=== PATIENT | male | born 1995 | race Caucasian/White ===

== ENCOUNTER 2020-09-13 21:39 | Inpatient (IN) | payer OTHER ==
[2020-09-13] MEDS ORDERED: NALOXONE 0.4 MG/ML 1 ML VIAL IV PRN (22:11)
[2020-09-13] MEDS ORDERED: ACETAMINOPHEN TAB 325 MG TAB PO PRN (22:11)
[2020-09-13 22:18] LABS: Basophils % (A) 0 %; Eosinophils # (A) 0.3 k/uL (0-0.7); Eosinophils % (A) 4 %; HCT 22.1 % (39.0-53.0); HGB 7.7 gm/dL (13.0-17.5); Lymphocytes # (A) 1.4 k/uL (1.0-4.8); Lymphocytes % (A) 19 %; MCH 29.1 pg (25.0-35.0); MCHC 34.7 g/dL (31.0-37.0); MCV 83.8 fL (80.0-100.0); Mean Platelet Volume 10.2; Monocytes # (A) 0.3 k/uL (0-1.0); Monocytes % (A) 4 %; Neutrophils % (A) 71 %; Platelet Count 142 k/uL (150-450); RBC 2.64 m/uL (4.30-5.90); RDW 13.7 % (11.5-15.5); WBC 7.1 k/uL (3.8-10.6)
--- NOTE | 2020-09-13 22:20 | ED ---
General Adult HPI - General Chief complaint: Recheck/Abnormal Lab/Rx Stated complaint: Abnormal labs Time Seen by Provider: 09/13/20 21:43 Source: patient, EMS, RN notes reviewed, old records reviewed Mode of arrival: EMS Limitations: no limitations - History of Present Illness Initial comments: 25-year-old male presenting as a transfer from outside hospital with renal failure. Patient was found to have a elevated BUN 167, and elevated creatinine at 26. Initial complaint had been some right-sided chest discomfort, weakness and fatigue. He was sent for nephrology consultation. He was found to be anemic and did report some chronic nosebleeds. He denies previous history of kidney issues. He states that he was told he had protein in his urine many years ago also has been told that he had elevated blood pressure but is not currently on any blood pressure medication. He states he has been making urine. - Related Data Allergies Allergy/AdvReac Type Severity Reaction Status Date / Time No Known Allergies Allergy Verified 09/13/20 21:51 Review of Systems ROS Statement: Those systems with pertinent positive or pertinent negative responses have been documented in the HPI. ROS Other: All systems not noted in ROS Statement are negative. Past Medical History Past Medical History: No Reported History History of Any Multi-Drug Resistant Organisms: None Reported Past Psychological History: No Psychological Hx Reported Smoking Status: Never smoker Past Alcohol Use History: None Reported Past Drug Use History: None Reported General Exam Limitations: no limitations General appearance: alert, in no apparent distress Head exam: Present: atraumatic, normocephalic Eye exam: Present: normal appearance ENT exam: Present: mucous membranes dry Neck exam: Present: normal inspection. Absent: tenderness, meningismus Respiratory exam: Present: normal lung sounds bilaterally. Absent: respiratory distress Cardiovascular Exam: Present: regular rate, normal rhythm GI/Abdominal exam: Present: soft. Absent: distended, tenderness, guarding Extremities exam: Present: normal inspection, normal capillary refill. Absent: pedal edema Neurological exam: Present: alert, oriented X3 Psychiatric exam: Present: normal affect, normal mood Skin exam: Present: warm, dry, pallor Course Vital Signs 09/13/20 21:42 Temperature 97.7 F Pulse Rate 70 Respiratory 18 Rate Blood Pressure 173/110 O2 Sat by Pulse 98 Oximetry Medical Decision Making - Medical Decision Making 25-year-old male transferred for nephrology consultation, renal failure. All laboratory testing will be repeated, ultrasound of the kidneys has been ordered. I did discuss case with both the admitting physician Dr. Friedman and elementary education teacher Dr. Neves. Dr. Neves recommend IV fluid, repeat lab testing, ultrasound and will evaluate the patient in the morning. Patient will be kept in a monitored bed. Laboratory tests reveal BUN was 167, creatinine 26, hemoglobin 7, he had elevated CPK 1000, elevated BNP 7700. Calcium of 5.2. Normal potassium. Repeat labs pending. Disposition Clinical Impression: Anemia, Renal failure Disposition: ADMITTED IP TO THIS [facility] Condition: Serious Is patient prescribed a controlled substance at d/c from ED?: No Referrals: None,Stated [Primary Care Provider] - 1-2 days Decision to Admit Reason: Admit from EC Decision Date: 09/13/20 Decision Time: 22:19
[2020-09-13 22:53] LABS: Albumin 4.1 g/dL (3.5-5.0); Potassium 4.8 mmol/L (3.5-5.1); Total Bilirubin 0.5 mg/dL (0.2-1.3); Total Protein 6.9 g/dL (6.3-8.2)
[2020-09-13 22:54] LABS: Creatine Kinase MB 5.9 ng/mL (0.0-2.4); Troponin I <0.012 ng/mL (0.000-0.034)
[2020-09-13] MEDS: SODIUM CHLORIDE 0.9% 1,000 ML IV SCH (23:03)
[2020-09-13 23:14] LABS: Calcium 5.6 mg/dL (8.4-10.2)
--- NOTE | 2020-09-13 23:38 | US ---
EXAMINATION TYPE: US renals and bladder DATE OF EXAM: 09/13/2020 COMPARISON: NONE CLINICAL HISTORY: ARF. ARF per order. EXAM MEASUREMENTS: Right Kidney: 8.2 x 4.7 x 3.0 cm Left Kidney: 8.3 x 4.4 x 3.6 cm Right Kidney: Appears small in size. Appears to have an increased echogenicity and to be heterogeneou s. Anechoic area seen lower pole: 1.4 x 1.1 x 1.5 cm. Left Kidney: Appears small in size. Appears to have an increased echogenicity. No hydronephrosis or m asses seen Bladder: Appears anechoic. Bilateral Jets seen: No -Hypoechoic-anechoic fluid appearing area seen posterior to the bladder: 3.5 x 2.7 x 1.3 cm. IMPRESSION: Kidneys are small and consistent with chronic renal failure. No hydronephrosis.
[2020-09-14 00:09] LABS: Appearance,Urine Clear (Clear); Bacteria,Urine Rare /hpf; Bilirubin,Urine Negative (Negative); Blood,Urine Moderate (Negative); Color,Urine Light Yellow; Glucose,Urine (UA) 1+ (Negative); Ketones,Urine Negative (Negative); Leukocyte Esterase,Urine Negative (Negative); Mucus,Urine Rare /hpf; Nitrite,Urine Negative (Negative); PH, Urine 6.5 (5.0-8.0); Protein,Urine 3+ (Negative); RBC,Urine 2 /hpf (0-5); Urobilinogen,Urine <2.0 mg/dL (<2.0); WBC,Urine 9 /hpf (0-5)
[2020-09-14 00:32] LABS: Amphetamine Screen,Urine Not Detected (NotDetected); Barbiturate Screen,Urine Not Detected (NotDetected); Benzodiazepines Screen,Urine Not Detected (NotDetected); Cocaine Screen,Urine Not Detected (NotDetected); Methadone Screen, Urine Not Detected (NotDetected); Opiate Screen,Urine Not Detected (NotDetected); Oxycodone Screen, Urine Not Detected (NotDetected); Phencyclidine Screen,Urine Not Detected (NotDetected); Tricyclic Antidepressant,Urine Not Detected (NotDetected); Urn Cannabinoid Scrn Detected (NotDetected)
[2020-09-14 00:35] LABS: Creatinine,Urine Random 71.4 mg/dL
[2020-09-14 03:22] LABS: Basophils % (A) 0 %; Eosinophils # (A) 0.2 k/uL (0-0.7); Eosinophils % (A) 3 %; HCT 20.2 % (39.0-53.0); Lymphocytes # (A) 1.4 k/uL (1.0-4.8); Lymphocytes % (A) 20 %; MCHC 32.6 g/dL (31.0-37.0); Mean Platelet Volume 9.3; Monocytes # (A) 0.4 k/uL (0-1.0); Monocytes % (A) 5 %; Neutrophils # (A) 4.8 k/uL (1.3-7.7); Neutrophils % (A) 69 %; Platelet Count 145 k/uL (150-450); RBC 2.35 m/uL (4.30-5.90); RDW 14.2 % (11.5-15.5); WBC 6.9 k/uL (3.8-10.6)
[2020-09-14 04:02] LABS: Magnesium 1.9 mg/dL (1.6-2.3); Potassium 4.8 mmol/L (3.5-5.1)
[2020-09-14 04:04] LABS: HGB 6.6 gm/dL (13.0-17.5)
[2020-09-14 04:25] LABS: Calcium 4.8 mg/dL (8.4-10.2)
[2020-09-14 04:26] LABS: Phosphorus 11.5 mg/dL (2.5-4.5)
[2020-09-14] MEDS: SODIUM CHLORIDE 0.9% 1,000 ML IV SCH ×2 (05:00→15:35)
[2020-09-14] MEDS: CALCIUM CHLORIDE 100 MG/ML 10 ML SYRINGE IVP STA ×2 (06:26→07:03)
[2020-09-14] MEDS ORDERED: CALCIUM CARBONATE 500 MG CHEWABLE PO PRN (06:50)
[2020-09-14] MEDS ORDERED: CALCIUM GLUCONATE 1 GM in SODIUM CHLORIDE 0.9% 100 ML IVPB ONE (07:00)
[2020-09-14] MEDS ORDERED: CALCIUM CARBONATE 500 MG CHEWABLE PO SCH (09:00)
[2020-09-14] MEDS ORDERED: DARBEPOETIN ALFA 60 MCG/0.3 ML SYRINGE SQ SCH (11:45)
[2020-09-14 12:35] LABS: Prothrombin Time 10.9 sec (9.0-12.0)
--- NOTE | 2020-09-14 13:21 | P.HPIM ---
History of Present Illness 25-year-old pleasant male was transferred from outside hospital for renal failure. Patient presented there with chest discomfort on the right side of the chest on and off last only for a few seconds no associated nausea or diaphoresis lightheadedness. Patient is found to have a fairly highly elevated BNP patient has some ST-T wave changes which are nonspecific troponins were negative. Patient doesn't have any problem with his urination. Patient creatinine is found to be 26 BUN of 167. Nephrology evaluated the patient after an ultrasound of the kidneys which showed small kidneys consistent with chronic any disease. Patient denied using any nephrotoxic nephrotoxic medications. Patient denied any hematuria. Urine analysis did show 3+ protein. Obtaining urine random creatinine urine random sodium, urine eosinophils. Patient denied any drug abuse except for occasional marijuana. His chest pain is worse when he lays on his back Review of Systems REVIEW OF SYSTEMS: CONSTITUTIONAL: No fever, no malaise, no fatigue. HEENT: No recent visual problems or hearing problems. Denied any sore throat. CARDIOVASCULAR: No orthopnea, PND, no palpitations, no syncope. PULMONARY: No shortness of breath, no cough, no hemoptysis. GASTROINTESTINAL: No diarrhea, no nausea, no vomiting, no abdominal pain. NEUROLOGICAL: No headaches, no weakness, no numbness. HEMATOLOGICAL: Denies any bleeding or petechiae. GENITOURINARY: Denies any burning micturition, frequency, or urgency. MUSCULOSKELETAL/RHEUMATOLOGICAL: Denies any joint pain, swelling, or any muscle pain. ENDOCRINE: Denies any polyuria or polydipsia. The rest of the 14-point review of systems is negative. Past Medical History Past Medical History: Hypertension Additional Past Medical History / Comment(s): Covid 19 03/2020, past protein in urine, occasional nose bleeds. History of Any Multi-Drug Resistant Organisms: None Reported Past Surgical History: No Surgical Hx Reported Past Anesthesia/Blood Transfusion Reactions: Unable to Obtain Additional Past Anesthesia/Blood Transfusion Reaction / Comment(s): Pt has never had anesthesia. Smoking Status: Never smoker - Past Family History Mother Family Medical History: Diabetes Mellitus Father History Unknown: Yes Medications and Allergies Home Medications Medication Instructions Recorded Confirmed Type No Known Home Medications 09/13/20 09/13/20 History Allergies Allergy/AdvReac Type Severity Reaction Status Date / Time No Known Allergies Allergy Verified 09/13/20 22:58 Physical Exam Vitals: Vital Signs Temp Pulse Resp BP Pulse Ox 09/14/20 12:06 97.8 F 89 16 159/105 99 09/14/20 09:59 97.8 F 70 16 159/105 100 09/14/20 09:29 97.8 F 73 18 162/107 100 09/14/20 08:53 97.8 F 73 17 162/107 100 09/14/20 08:23 97.8 F 68 18 161/105 100 09/14/20 08:13 97.6 F 70 16 154/102 100 09/14/20 07:21 97.5 F L 61 16 156/99 97 09/14/20 04:00 64 16 146/98 98 09/14/20 01:24 66 18 152/102 98 09/13/20 23:04 68 18 164/115 100 09/13/20 21:42 97.7 F 70 18 173/110 98 Intake and Output 09/13/20 09/14/20 09/14/20 22:59 06:59 14:59 Intake Total 310 Balance 310 Intake: Blood Product 310 Rc As-1 Unit 310 [id number] Other: Weight 90.718 kg 90.718 kg PHYSICAL EXAMINATION: GENERAL: The patient is alert and oriented x3, not in any acute distress. Well developed, well nourished. HEENT: Pupils are round and equally reacting to light. EOMI. No scleral icterus. No conjunctival pallor. Normocephalic, atraumatic. No pharyngeal erythema. No thyromegaly. CARDIOVASCULAR: S1 and S2 present. No murmurs, or gallops. May be a pericardial friction rub or knock PULMONARY: Chest is clear to auscultation, no wheezing or crackles. ABDOMEN: Soft, nontender, nondistended, normoactive bowel sounds. No palpable organomegaly. MUSCULOSKELETAL: No joint swelling or deformity. EXTREMITIES: No cyanosis, clubbing, or pedal edema. NEUROLOGICAL: Gross neurological examination did not reveal any focal deficits. SKIN: No rashes. Results CBC & Chem 7: 09/14/20 03:00 09/14/20 03:00 Labs: Abnormal Lab Results - Last 24 Hours (Table) 09/13/20 09/13/20 09/13/20 Range/Units 22:03 22:03 22:03 RBC 2.64 L (4.30-5.90) m/uL Hgb 7.7 L (13.0-17.5) gm/dL Hct 22.1 L (39.0-53.0) % Plt Count 142 L (150-450) k/uL Carbon Dioxide 11 L (22-30) mmol/L BUN 163 H* (9-20) mg/dL Creatinine 25.82 H* (0.66-1.25) mg/dL Glucose 106 H (74-99) mg/dL Osmolality 349 H* (280-301) mosm/kg Calcium 5.6 L* (8.4-10.2) mg/dL Phosphorus (2.5-4.5) mg/dL CK-MB (CK-2) 5.9 H (0.0-2.4) ng/mL Urine Protein (Negative) Urine Glucose (UA) (Negative) Urine Blood (Negative) Urine WBC (0-5) /hpf Urine Bacteria (None) /hpf Urine Mucus (None) /hpf U Marijuana (THC) Screen (NotDetected) Crossmatch 09/13/20 09/14/20 09/14/20 Range/Units 23:45 03:00 03:00 RBC 2.35 L (4.30-5.90) m/uL Hgb 6.6 L* (13.0-17.5) gm/dL Hct 20.2 L (39.0-53.0) % Plt Count 145 L (150-450) k/uL Carbon Dioxide 11 L (22-30) mmol/L BUN 161 H* (9-20) mg/dL Creatinine 25.63 H* (0.66-1.25) mg/dL Glucose (74-99) mg/dL Osmolality (280-301) mosm/kg Calcium 4.8 L* (8.4-10.2) mg/dL Phosphorus 11.5 H* (2.5-4.5) mg/dL CK-MB (CK-2) (0.0-2.4) ng/mL Urine Protein 3+ H (Negative) Urine Glucose (UA) 1+ H (Negative) Urine Blood Moderate H (Negative) Urine WBC 9 H (0-5) /hpf Urine Bacteria Rare H (None) /hpf Urine Mucus Rare H (None) /hpf U Marijuana (THC) Screen Detected H (NotDetected) Crossmatch 09/14/20 Range/Units 06:12 RBC (4.30-5.90) m/uL Hgb (13.0-17.5) gm/dL Hct (39.0-53.0) % Plt Count (150-450) k/uL Carbon Dioxide (22-30) mmol/L BUN (9-20) mg/dL Creatinine (0.66-1.25) mg/dL Glucose (74-99) mg/dL Osmolality (280-301) mosm/kg Calcium (8.4-10.2) mg/dL Phosphorus (2.5-4.5) mg/dL CK-MB (CK-2) (0.0-2.4) ng/mL Urine Protein (Negative) Urine Glucose (UA) (Negative) Urine Blood (Negative) Urine WBC (0-5) /hpf Urine Bacteria (None) /hpf Urine Mucus (None) /hpf U Marijuana (THC) Screen (NotDetected) Crossmatch See Detail Assessment and Plan Plan: -Chest pain appears to be secondary to pleuropericarditis from uremia. Patient will undergo hemodialysis today -Renal failure appears to be chronic kidney disease appears to be stage V in May be a competent of acute renal failure for which patient is receiving IV fluids nephrology evaluated the patient patient probably will undergo hemodialysis. Patient does have proteinuria further workup as mentioned above 1 anemia appears to be anemia secondary to chronic kidney disease ferritin level will be obtained along iron panel. His hemoglobin is 6.6 will transfuse 1 unit of PRBC -And gap as well as non-anion gap metabolic acidosis secondary to renal failure patient is on sodium bicarbonate drip -Hypocalcemia secondary to metabolic bone disease calcium will be replaced patient will be started on PhosLo for elevated phosphorus and low calcium. DVT prophylaxis: Early ambulation
[2020-09-14] MEDS: CALCIUM ACETATE 667 MG TAB PO SCH ×2 (13:47→17:33)
[2020-09-14] MEDS: DEXTROSE 5% IN WATER 1,000 ML with SODIUM BICARB (1 MEQ/ML) 150 ML IV SCH (14:13)
[2020-09-14] MEDS ORDERED: LIDOCAINE 1% INJ 10MG/ML (20 ML MDV) SQ ONE (15:32)
[2020-09-14] MEDS ORDERED: fentaNYL (PF) 50 MCG/ML 2 ML AMP IV ONE (15:34)
[2020-09-14] MEDS ORDERED: IV FLUID CONTINUATION 950 ML IV ONE (15:35)
--- NOTE | 2020-09-14 15:38 | CONS ---
CONSULTATION REASON FOR CONSULT: Renal failure. HISTORY OF PRESENT ILLNESS: The patient is a 25-year-old male who was admitted to the hospital with complaints of not feeling well, increased fatigue and lethargy going on for about a few weeks prior to admission. He denies any prior history of kidney diseases. Patient stated that he was told he had high blood pressure in his teens, but he never followed up or took any medications for it. He has not seen any physician and has not had any previous labs done. On admission, patient was noted to have a creatinine of 26 and BUN of 167. He states he has been voiding as per usual and has not noticed any changes in his urinary stream. He denies any obvious hematuria. No history of excessive use of NSAIDs recently and no history of hypotension. Blood pressure was elevated when he came in. No history of fever, chills, nausea, vomiting, abdominal pain or diarrhea. No family history of kidney diseases or dialysis. PAST MEDICAL HISTORY: Hypertension; not taking any medications for it. SOCIAL HISTORY: Negative for smoking, drug abuse or alcohol abuse. MEDICATIONS: None prior to admission. ALLERGIES: NONE. REVIEW OF SYSTEMS: As per HPI. Other systems negative. PHYSICAL EXAMINATION: Patient is comfortable, awake, alert, oriented x3. Blood pressure 159/105, heart rate 70 per minute. He is afebrile. EXAMINATION OF THE HEART: S1 and S2. EXAMINATION OF LUNGS: Bilateral breath sounds are heard. ABDOMEN: Soft, non-tender. Examination of lower extremities shows no evidence of edema. CIS COORDINATOR exam is grossly intact. LABS: Sodium 139, potassium 4.8, chloride 106. CO2 is 11, BUN 161, serum creatinine 25.6 and hemoglobin of 6.6 g/dL. ASSESSMENT: 1. Chronic kidney disease with possible component of acute kidney injury. However, at this time we do not have any prior labs available. This is most likely progression of his underlying CKD. I will continue with IV fluids. Patient has been talked to regarding renal replacement therapy. At this time he is agreeable. We will plan for dialysis catheter placement and first treatment tomorrow. 2. Severe metabolic acidosis associated with advanced renal failure. Switch IV fluids to IV bicarb. 3. Hyperphosphatemia associated with advanced renal failure, maintained on phosphate binders. 4. Uncontrolled hypertension. 5. History of use of marijuana. 6. Severe anemia with hemoglobin of 6.6 g/dL. No active bleeding noted. PLAN: Change IV fluids to IV bicarb. Check iron profile. Start Aranesp. Agree with phosphate binders. Check vitamin D level. Consult Vascular Surgery for dialysis catheter placement and we will plan for first treatment tomorrow. Ultrasound of the kidneys was already done, and it does show the kidneys to be on the smaller side, suggesting ongoing chronic renal failure. Thank you for this consultation. Will continue to follow the patient with you during his hospitalization. MMODL / IJN: [id number] /
--- NOTE | 2020-09-14 16:14 | IR ---
EXAMINATION TYPE: IR cvc insert non tunneled DATE OF EXAM: 09/14/2020 COMPARISON: NONE HISTORY: Dialysis catheter placement Fluoroscopy support supplied to the referring clinician. See dictated report from vascular surgery, 0.1 minutes fluoroscopy time, 22 intraoperative images document the procedure
[2020-09-14 18:16] LABS: Hepatitis B Surface AB- Quant 72.8 mIU/mL; Hepatitis B Surface Antibody Reactive (Non-Reactive); Hepatitis B Surface Antigen Non-Reactive (Non-Reactive)
[2020-09-14 22:01] LABS: Anti-DNA, DS unit <1.0 IU/mL; DNA Double-Stranded NEGATIVE (NEGATIVE)
[2020-09-15] MEDS: DEXTROSE 5% IN WATER 1,000 ML with SODIUM BICARB (1 MEQ/ML) 150 ML IV SCH ×3 (00:53→19:59)
[2020-09-15 04:59] LABS: % Iron Saturation 57.07 (15.00-50.00)
[2020-09-15] MEDS: CALCIUM ACETATE 667 MG TAB PO SCH ×3 (06:00→17:42)
[2020-09-15 08:18] LABS: HCT 24.9 % (39.0-53.0); MCH 28.5 pg (25.0-35.0); MCHC 33.9 g/dL (31.0-37.0); MCV 84.2 fL (80.0-100.0); Mean Platelet Volume 8.2; Platelet Count 140 k/uL (150-450); RBC 2.96 m/uL (4.30-5.90); RDW 14.2 % (11.5-15.5); WBC 7.3 k/uL (3.8-10.6)
[2020-09-15 08:22] LABS: HGB 8.4 gm/dL (13.0-17.5)
[2020-09-15 08:37] LABS: Potassium 4.4 mmol/L (3.5-5.1)
[2020-09-15 08:49] LABS: Calcium 5.4 mg/dL (8.4-10.2)
--- NOTE | 2020-09-15 09:59 | CONS ---
CONSULTATION This is a 25-year-old gentleman who came to the emergency room with history of chest pain. The patient has a complete workup and the patient also has high BUN and creatinine. His creatinine is 26, BUN 167. Nephrology seen patient and recommended urgent dialysis catheter. MEDICAL HISTORY: History of hypertension. PERSONAL HISTORY: No history of smoking. No history of any major surgery done in the past. PHYSICAL EXAMINATION: NECK: Supple. No bruit appreciated. CHEST EXAMINATION: Chest is clear. First and second sounds normal. There was good air entry in both lungs. ABDOMEN: Soft, nontender. Brachial, radial, femorals were present. PLAN: Placement of dialysis catheter. Risks and complications discussed. MMODL / IJN: [id number] /
--- NOTE | 2020-09-15 10:03 | PCN ---
PROCEDURE NOTE PREOPERATIVE DIAGNOSIS: Acute on chronic renal failure. POSTOPERATIVE DIAGNOSIS: Acute on chronic renal failure. PROCEDURE PERFORMED: Ultrasound-guided dialysis catheter placed in the right femoral approach. DESCRIPTION OF PROCEDURE: Right groin was prepped and drapes were applied in usual sterile manner and 1% lidocaine plain infiltrated. Ultrasound-guided micropuncture into the right femoral vein. Micropuncture guidewire was passed and a 4 Swedish dilator on the top of the guidewire. After that, we passed a regular guidewire under fluoroscopy control. The dilator was advanced and dialysis catheter was advanced on the top of the guidewire, flushed with heparin saline and hep-locked, secured with 3-0 nylon. Dressing applied. Patient tolerated the procedure well. MMODL / IJN: [id number] /
--- NOTE | 2020-09-15 11:20 | PN ---
PROGRESS NOTE Patient is seen for followup for advanced renal failure, most likely chronic in nature. Currently seen on hemodialysis. Patient is tolerating his treatment well. PHYSICAL EXAMINATION: On examination today, blood pressure was elevated at 179/120, heart rate 79 per minute. He is afebrile. EXAMINATION OF THE HEART: S1, S2. EXAMINATION OF THE LUNGS: Bilateral breath sounds are heard. Abdomen is soft, nontender. Examination of lower extremities shows no evidence of edema, DIRECTOR EDUCATIONAL RADIO exam grossly intact. LABS: Labs show sodium of 137, potassium 4.4, BUN 159, serum creatinine 24.76, hemoglobin 8.4 g/dL. ASSESSMENT: 1. End-stage renal disease, currently started on dialysis. Ultrasound shows kidneys to be small. UA showed evidence of 3+ protein. Serologies were sent out, which are thus far negative. The patient will be going to the [facility] for outpatient treatments. 2. Metabolic acidosis secondary to advanced renal failure maintained on bicarb drip. Expect improvement post dialysis. 3. Nutrition vitamin D deficiency and hypocalcemia. Will start vitamin D supplementation. 4. Anemia, no active gastrointestinal bleed noted. Status post packed RBCs. Maintained on Aranesp. 5. Severe hyperphosphatemia associated with renal failure, maintained on phosphate binders. PLAN: Discharge planning to arrange for outpatient hemodialysis most likely Sunday, Sunday, Sunday schedule. I will add oral vitamin D and continue with the phosphate binders. MMODL / IJN: [id number] /
[2020-09-15] MEDS: ERGOCALCIFEROL 1,250 MCG (50,000 IU) CAPSULE PO SCH (12:42)
[2020-09-15 13:53] LABS: C-ANCA <1:20 Titer (<1:20)
[2020-09-15 14:31] LABS: Complement C3 97.1 mg/dL (80.0-207.0)
[2020-09-15 15:37] VITALS: BMI 24.9
--- NOTE | 2020-09-15 16:19 | P.PN ---
Subjective 25-year-old pleasant male was transferred from outside hospital for renal failure. Patient presented there with chest discomfort on the right side of the chest on and off last only for a few seconds no associated nausea or diaphoresis lightheadedness. Patient is found to have a fairly highly elevated BNP patient has some ST-T wave changes which are nonspecific troponins were negative. Patient doesn't have any problem with his urination. Patient creatinine is found to be 26 BUN of 167. Nephrology evaluated the patient after an ultrasound of the kidneys which showed small kidneys consistent with chronic any disease. Patient denied using any nephrotoxic nephrotoxic medications. Patient denied any hematuria. Urine analysis did show 3+ protein. Obtaining urine random creatinine urine random sodium, urine eosinophils. Patient denied any drug abuse except for occasional marijuana. His chest pain is worse when he lays on his back. 09/15/2020 Patient appears to have chronic kidney disease with shrunken kidneys. Patient is undergoing hemodialysis. Patient is hemodialysis catheter. All the workup force so far for chronic kidney disease is negative. Patient may need a renal biopsy. Constitutional: Denied any fatigue denied any fever. Cardio vascular: denied any chest pain, palpitations Gastrointestinal denied any nausea vomiting Pulmonary: Denied any shortness of breath cough Neurologic denied any new focal deficits All inpatient medications were reviewed and appropriate changes in these medications as dictated in the interval history and assessment and plan. Objective - Vital Signs Vital signs: Vital Signs Temp 97.6 F 09/15/20 12:34 Pulse 80 09/15/20 15:52 Resp 18 09/15/20 12:34 BP 166/99 09/15/20 15:52 Pulse Ox 99 09/15/20 15:52 Intake & Output 09/14/20 09/15/20 09/15/20 18:59 06:59 18:59 Intake Total 550 310 Output Total 825 0 Balance 550 -515 0 Weight 90.718 kg 88 kg 88 kg Intake: Oral 240 Blood Product 310 310 Rc As-1 Unit 310 [id number] Rc As-1 Unit 310 [id number] Output: Urine 825 Hemodialysis 0 Other: Voiding Method Urinal - Exam PHYSICAL EXAMINATION: GENERAL: The patient is alert and oriented x3, not in any acute distress. Well developed, well nourished. HEENT: Pupils are round and equally reacting to light. EOMI. No scleral icterus. No conjunctival pallor. Normocephalic, atraumatic. No pharyngeal erythema. No thyromegaly. CARDIOVASCULAR: S1 and S2 present. No murmurs, rubs, or gallops. PULMONARY: Chest is clear to auscultation, no wheezing or crackles. ABDOMEN: Soft, nontender, nondistended, normoactive bowel sounds. No palpable organomegaly. MUSCULOSKELETAL: No joint swelling or deformity. EXTREMITIES: No cyanosis, clubbing, or pedal edema. NEUROLOGICAL: Gross neurological examination did not reveal any focal deficits. SKIN: No rashes. - Labs CBC & Chem 7: 09/15/20 07:26 09/15/20 07:26 Labs: Abnormal Lab Results - Last 24 Hours (Table) 09/14/20 09/14/20 09/14/20 Range/Units 03:00 06:12 12:04 RBC (4.30-5.90) m/uL Hgb (13.0-17.5) gm/dL Hct (39.0-53.0) % Plt Count (150-450) k/uL Carbon Dioxide (22-30) mmol/L BUN (9-20) mg/dL Creatinine (0.66-1.25) mg/dL Calcium (8.4-10.2) mg/dL TIBC 198 L (228-460) ug/dL % Saturation 57.07 H (15.00-50.00) Vitamin D 25-Hydroxy 11.8 L (30.0-100.0) ng/mL Hep Bs Antibody Reactive A (Non-Reactive) Crossmatch See Detail 09/15/20 09/15/20 Range/Units 07:26 07:26 RBC 2.96 L (4.30-5.90) m/uL Hgb 8.4 L D (13.0-17.5) gm/dL Hct 24.9 L (39.0-53.0) % Plt Count 140 L (150-450) k/uL Carbon Dioxide 12 L (22-30) mmol/L BUN 159 H* (9-20) mg/dL Creatinine 24.76 H* (0.66-1.25) mg/dL Calcium 5.4 L* (8.4-10.2) mg/dL TIBC (228-460) ug/dL % Saturation (15.00-50.00) Vitamin D 25-Hydroxy (30.0-100.0) ng/mL Hep Bs Antibody (Non-Reactive) Crossmatch Assessment and Plan Plan: -Chest pain appears to be secondary to pleuropericarditis from uremia. Patient did undergo hemodialysis yesterday and the is having hemodialysis today -Renal failure appears to be chronic kidney disease appears to be stage V in May be a competent of acute renal failure patient was initiated on hemodialysis. 1 anemia appears to be anemia secondary to chronic kidney disease received 1 unit of PRBC transfusion with improvement of hemoglobin from 6.6., Patient was started on aranesp -Vitamin D deficiency for which patient was started on vitamin D supplementation, patient is hypocalcemic is secondary to vitamin D deficiency and renal failure -Anion gap as well as non-anion gap metabolic acidosis secondary to renal failure patient is on sodium bicarbonate drip -Hypocalcemia secondary to metabolic bone disease calcium will be replaced patient will be started on PhosLo for elevated phosphorus and low calcium. DVT prophylaxis: Early ambulation
[2020-09-15] MEDS: amLODIPine 5 MG TAB PO SCH (19:58)
[2020-09-15] MEDS: ONDANSETRON 4 MG/2 ML VIAL IVP PRN (21:28)
[2020-09-16] MEDS: CALCIUM ACETATE 667 MG TAB PO SCH ×3 (06:40→17:24)
[2020-09-16 08:15] LABS: Basophils % (A) 0 %; Eosinophils # (A) 0.2 k/uL (0-0.7); Eosinophils % (A) 3 %; HCT 23.1 % (39.0-53.0); HGB 8.5 gm/dL (13.0-17.5); Lymphocytes # (A) 1.8 k/uL (1.0-4.8); Lymphocytes % (A) 31 %; MCH 30.4 pg (25.0-35.0); MCV 82.4 fL (80.0-100.0); Mean Platelet Volume 8.7; Monocytes # (A) 0.3 k/uL (0-1.0); Monocytes % (A) 5 %; Neutrophils # (A) 3.4 k/uL (1.3-7.7); Neutrophils % (A) 60 %; Platelet Count 127 k/uL (150-450); RBC 2.81 m/uL (4.30-5.90); RDW 13.3 % (11.5-15.5); WBC 5.6 k/uL (3.8-10.6)
[2020-09-16 08:28] LABS: Potassium 3.4 mmol/L (3.5-5.1)
[2020-09-16 08:43] LABS: Calcium 5.7 mg/dL (8.4-10.2)
[2020-09-16] MEDS: amLODIPine 5 MG TAB PO SCH ×2 (10:29→20:15)
[2020-09-16] MEDS: DEXTROSE 5% IN WATER 1,000 ML with SODIUM BICARB (1 MEQ/ML) 150 ML IV SCH (12:06)
--- NOTE | 2020-09-16 13:43 | P.PN ---
Subjective 25-year-old pleasant male was transferred from outside hospital for renal failure. Patient presented there with chest discomfort on the right side of the chest on and off last only for a few seconds no associated nausea or diaphoresis lightheadedness. Patient is found to have a fairly highly elevated BNP patient has some ST-T wave changes which are nonspecific troponins were negative. Patient doesn't have any problem with his urination. Patient creatinine is found to be 26 BUN of 167. Nephrology evaluated the patient after an ultrasound of the kidneys which showed small kidneys consistent with chronic any disease. Patient denied using any nephrotoxic nephrotoxic medications. Patient denied any hematuria. Urine analysis did show 3+ protein. Obtaining urine random creatinine urine random sodium, urine eosinophils. Patient denied any drug abuse except for occasional marijuana. His chest pain is worse when he lays on his back. 09/15/2020 Patient appears to have chronic kidney disease with shrunken kidneys. Patient is undergoing hemodialysis. Patient is hemodialysis catheter. All the workup force so far for chronic kidney disease is negative. Patient may need a renal biopsy. 09/16/2020 Patient did undergo hemodialysis yesterday will undergo dialysis today as well. Patient has insurance issues because of which the case management is working on Medicaid application. Patient probably will receive a permacath tomorrow and patient will be started on scheduled hemodialysis. Constitutional: Denied any fatigue denied any fever. Cardio vascular: denied any chest pain, palpitations Gastrointestinal denied any nausea vomiting Pulmonary: Denied any shortness of breath cough Neurologic denied any new focal deficits All inpatient medications were reviewed and appropriate changes in these medications as dictated in the interval history and assessment and plan. Objective - Vital Signs Vital signs: Vital Signs Temp 97.9 F 09/16/20 04:00 Pulse 70 09/16/20 12:00 Resp 18 09/16/20 12:00 BP 163/90 09/16/20 12:00 Pulse Ox 97 09/16/20 12:00 Intake & Output 09/15/20 09/16/20 09/16/20 18:59 06:59 18:59 Intake Total 1022 120 Output Total 900 550 Balance 122 -550 120 Weight 88 kg 71.1 kg Intake: IV 800 Dextrose 5% in Water 1, 800 000 ml @ 100 mls/hr IV . [id number] CHAVA with Sodium Bicarb (1 Meq/ml) 150 ml Rx#:[id number] Oral 222 120 Output: Urine 900 550 Hemodialysis 0 Other: Voiding Method Urinal # Voids 1 - Exam PHYSICAL EXAMINATION: GENERAL: The patient is alert and oriented x3, not in any acute distress. Well developed, well nourished. HEENT: Pupils are round and equally reacting to light. EOMI. No scleral icterus. No conjunctival pallor. Normocephalic, atraumatic. No pharyngeal erythema. No thyromegaly. CARDIOVASCULAR: S1 and S2 present. No murmurs, rubs, or gallops. PULMONARY: Chest is clear to auscultation, no wheezing or crackles. ABDOMEN: Soft, nontender, nondistended, normoactive bowel sounds. No palpable organomegaly. MUSCULOSKELETAL: No joint swelling or deformity. EXTREMITIES: No cyanosis, clubbing, or pedal edema. NEUROLOGICAL: Gross neurological examination did not reveal any focal deficits. SKIN: No rashes. - Labs CBC & Chem 7: 09/16/20 07:37 09/16/20 07:37 Labs: Abnormal Lab Results - Last 24 Hours (Table) 09/16/20 09/16/20 Range/Units 07:37 07:37 RBC 2.81 L (4.30-5.90) m/uL Hgb 8.5 L (13.0-17.5) gm/dL Hct 23.1 L (39.0-53.0) % Plt Count 127 L (150-450) k/uL Potassium 3.4 L (3.5-5.1) mmol/L BUN 105 H* (9-20) mg/dL Creatinine 18.44 H* (0.66-1.25) mg/dL Glucose 108 H (74-99) mg/dL Calcium 5.7 L* (8.4-10.2) mg/dL Assessment and Plan Plan: -Chest pain appears to be secondary to pleuropericarditis from uremia. Patient did undergo hemanalysis as today and will undergo hemodialysis today. Will receive permacath tomorrow and arrangement for outpatient hemodialysis are being made today patient just pain resolved -Renal failure appears to be chronic kidney disease appears to be stage V in May be a competent of acute renal failure patient was initiated on hemodialysis. 1 anemia appears to be anemia secondary to chronic kidney disease received 1 unit of PRBC transfusion with improvement of hemoglobin from 6.6., Patient was started on aranesp -Vitamin D deficiency for which patient was started on vitamin D supplementation, patient is hypocalcemic is secondary to vitamin D deficiency and renal failure -Anion gap as well as non-anion gap metabolic acidosis secondary to renal failure which improved patient is a bicarbonate drip patient is presently on calcium acetate as a phosphate binder -Hypocalcemia secondary to metabolic bone disease calcium will be replaced patient will be started on PhosLo for elevated phosphorus and low calcium. DVT prophylaxis: Early ambulation
--- NOTE | 2020-09-16 13:59 | PN ---
PROGRESS NOTE Patient is seen for followup for end-stage renal disease. He has been started on dialysis this admission. He was admitted with a creatinine of 25 and his ultrasound shows small kidneys. We do not have any prior labs available for comparison. I believe this is been going on for some time. The patient has had progressive renal failure. He did have a history of hypertension in his early teens and this was never followed up and he did not take any medications for it. There was evidence of proteinuria noted on UA and serologies were sent out and so far, all the serologies are negative. The patient had his first treatment of hemodialysis yesterday. He currently has a femoral catheter. PHYSICAL EXAMINATION: On examination today, he states he is feeling better. Blood pressure was elevated 181/95, heart rate 80 per minute. He is afebrile. EXAMINATION OF THE HEART: S1, S2. EXAMINATION OF THE LUNGS: Bilateral breath sounds are heard. Abdomen is soft, nontender. Examination of lower extremities shows no significant edema. MANAGER [employer]ING exam grossly intact. LABS: Labs show sodium 137, potassium 3.4, chloride of 98, BUN 105, serum creatinine 18.4, hemoglobin 8.5 g/dL. ASSESSMENT: 1. Progressive renal failure, most likely chronic and etiology is likely uncontrolled hypertension versus chronic GN, possibly FSGS earlier on. The ultrasound shows the kidneys are small. Serologies for workup of proteinuria are all negative. I will check a random protein creatinine ratio to estimate the proteinuria. At this time, biopsy will not help. The patient needs to continue with renal replacement therapy and plan for transplant down the road. He lives in [place]. Therefore, he should be set up for dialysis in [place]. 2. Anemia, most likely anemia of chronic disease. No evidence of active bleeding noted. However, we need to rule out gastrointestinal bleed as patient did have epigastric pain. Stool for occult blood has been ordered. 3. Metabolic acidosis associated with advanced renal failure currently improved. Patient is on bicarb drip which I will discontinue. 4. Hypertension uncontrolled. Currently maintained on Norvasc, which I will increase and we can add SRIRAM inhibitors and beta blockers down the road if his blood pressure remains uncontrolled. 5. Nutritional vitamin D deficiency, maintained on supplementation. PLAN: Increase Norvasc. Continue with phosphate binders. Second treatment of hemodialysis today. Social Work to proceed with insurance for outpatient dialysis set up, which will be at [place]. Discontinue bicarb drip. Replace potassium. Repeat labs in a.m. MMODL / IJN: [id number] /
[2020-09-16] MEDS: carvediloL 3.125 MG TAB PO SCH (17:34)
[2020-09-16] MEDS: FAMOTIDINE 20 MG TAB PO SCH (20:15)
[2020-09-16] MEDS ORDERED: FAMOTIDINE 20 MG TAB PO SCH (21:00)
[2020-09-17] MEDS: CALCIUM ACETATE 667 MG TAB PO SCH ×3 (06:30→17:10)
[2020-09-17] MEDS: carvediloL 3.125 MG TAB PO SCH ×2 (06:30→17:10)
[2020-09-17 10:20] LABS: Calcium 6.7 mg/dL (8.4-10.2); Potassium 3.8 mmol/L (3.5-5.1)
--- NOTE | 2020-09-17 12:10 | P.PN ---
Subjective 25-year-old pleasant male was transferred from outside hospital for renal failure. Patient presented there with chest discomfort on the right side of the chest on and off last only for a few seconds no associated nausea or diaphoresis lightheadedness. Patient is found to have a fairly highly elevated BNP patient has some ST-T wave changes which are nonspecific troponins were negative. Patient doesn't have any problem with his urination. Patient creatinine is found to be 26 BUN of 167. Nephrology evaluated the patient after an ultrasound of the kidneys which showed small kidneys consistent with chronic any disease. Patient denied using any nephrotoxic nephrotoxic medications. Patient denied any hematuria. Urine analysis did show 3+ protein. Obtaining urine random creatinine urine random sodium, urine eosinophils. Patient denied any drug abuse except for occasional marijuana. His chest pain is worse when he lays on his back. 09/15/2020 Patient appears to have chronic kidney disease with shrunken kidneys. Patient is undergoing hemodialysis. Patient is hemodialysis catheter. All the workup force so far for chronic kidney disease is negative. Patient may need a renal biopsy. 09/16/2020 Patient did undergo hemodialysis yesterday will undergo dialysis today as well. Patient has insurance issues because of which the case management is working on Medicaid application. Patient probably will receive a permacath tomorrow and patient will be started on scheduled hemodialysis. 09/17/2020 next and patient is undergoing hemanalysis today as well. Patient creatinine came down to 11. Patient either has a of FSGS are hypertension induced nephropathy. Patient has some proteinuria. Patient will undergo permacath placement. Patient blood pressure is low we'll cut down the dose of Norvasc. Constitutional: Denied any fatigue denied any fever. Cardio vascular: denied any chest pain, palpitations Gastrointestinal denied any nausea vomiting Pulmonary: Denied any shortness of breath cough Neurologic denied any new focal deficits All inpatient medications were reviewed and appropriate changes in these medications as dictated in the interval history and assessment and plan. Objective - Vital Signs Vital signs: Vital Signs Temp 98.2 F 09/17/20 07:57 Pulse 88 09/17/20 11:55 Resp 16 09/17/20 11:55 BP 87/43 09/17/20 11:55 Pulse Ox 95 09/17/20 07:57 Intake & Output 09/16/20 09/17/20 09/17/20 18:59 06:59 18:59 Intake Total 1060 300 Output Total 1000 300 Balance 60 0 Weight 89.5 kg Intake: IV 400 Dextrose 5% in Water 1, 400 000 ml @ 100 mls/hr IV . [id number] CHAVA with Sodium Bicarb (1 Meq/ml) 150 ml Rx#:[id number] Oral 660 Hemodialysis 300 Output: Urine 1000 Hemodialysis 300 Other: Voiding Method Urinal Urinal # Voids 1 2 # Bowel Movements 2 - Exam PHYSICAL EXAMINATION: GENERAL: The patient is alert and oriented x3, not in any acute distress. Well developed, well nourished. HEENT: Pupils are round and equally reacting to light. EOMI. No scleral icterus. No conjunctival pallor. Normocephalic, atraumatic. No pharyngeal erythema. No thyromegaly. CARDIOVASCULAR: S1 and S2 present. No murmurs, rubs, or gallops. PULMONARY: Chest is clear to auscultation, no wheezing or crackles. ABDOMEN: Soft, nontender, nondistended, normoactive bowel sounds. No palpable organomegaly. MUSCULOSKELETAL: No joint swelling or deformity. EXTREMITIES: No cyanosis, clubbing, or pedal edema. NEUROLOGICAL: Gross neurological examination did not reveal any focal deficits. SKIN: No rashes. - Labs CBC & Chem 7: 09/16/20 07:37 09/17/20 09:16 Labs: Abnormal Lab Results - Last 24 Hours (Table) 09/17/20 Range/Units 09:16 Carbon Dioxide 32 H (22-30) mmol/L BUN 68 H (9-20) mg/dL Creatinine 11.83 H* (0.66-1.25) mg/dL Calcium 6.7 L (8.4-10.2) mg/dL Assessment and Plan Plan: -Chest pain appears to be secondary to pleuropericarditis from uremia. Undergoing hemodialysis today as well. Will receive permacath today and arrange ment for outpatient hemodialysis are being made. Unsure blood pressure is low today for her down the dose of Norvasc -Renal failure appears to be chronic kidney disease appears to be stage V in May be a competent of acute renal failure patient was initiated on hemodialysis. 1 anemia appears to be anemia secondary to chronic kidney disease received 1 unit of PRBC transfusion with improvement of hemoglobin from 6.6., Patient was started on aranesp -Vitamin D deficiency for which patient was started on vitamin D supplementation, patient is hypocalcemic is secondary to vitamin D deficiency and renal failure -Anion gap as well as non-anion gap metabolic acidosis secondary to renal failure which improved patient is a bicarbonate drip patient is presently on calcium acetate as a phosphate binder -Hypocalcemia secondary to metabolic bone disease calcium will be replaced patient will be started on PhosLo for elevated phosphorus and low calcium. DVT prophylaxis: Early ambulation
[2020-09-17] MEDS ORDERED: HEPARIN SODIUM 1,000 UN/ML (10ML VL) ONE (14:00)
[2020-09-17] MEDS ORDERED: LIDOCAINE 1% INJ 10MG/ML (20 ML MDV) ONE ×2 (14:01→14:30)
[2020-09-17] MEDS ORDERED: MIDAZOLAM 2 MG/2 ML VIAL IVP ONE (14:10)
[2020-09-17] MEDS ORDERED: IV FLUID CONTINUATION 1,000 ML IV ONE (14:11)
[2020-09-17] MEDS ORDERED: LIDOCAINE 1% INJ 10MG/ML (20 ML MDV) SQ ONE (14:14)
[2020-09-17] MEDS ORDERED: HYDROmorphone 1 MG/ML 1 ML SYRINGE IVP ONE (14:16)
[2020-09-17] MEDS: MIDAZOLAM 2 MG/2 ML VIAL IV ONE ×2 (14:33→14:39)
--- NOTE | 2020-09-17 15:18 | P.GSCN ---
History of Present Illness History of present illness: Preoperative diagnoses is acute chronic renal failure Posterior same Procedure #1 is 23 same dialysis catheter placed a right jugular approach and removal of the right femoral component LS catheter sedation 38 minutes. The patient was brought to the [facility] r her right chest and right groin was prepped and draped applied in standard manner 1% lidocaine for infected in the neck area ultrasound-guided micropuncture introduced right jugular vein. Micropuncture guidewire was passed and 4-Malay dilator advanced. The guidewire. After that tendon was created through the terminal be brought 23 same dialysis catheter and that dilator was across on the top of the guidewire under fluoroscopy control then replaced a sheath on the top of the guidewire through the sheath we introduced dialysis catheter tip of the catheter. A vena cava A junction sheath was removed flushed with heparin saline and Hep-Lock. Secured with 3-0 nylon and dressing applied patient are to the procedure well. Then the right groin catheter stitches were removed and catheter was removed patient pressure held patient prior the procedure well dorsal to the recovery room in satisfactory condition thank you Past Medical History Past Medical History: Hypertension Additional Past Medical History / Comment(s): Covid 19 03/2020, past protein in urine, occasional nose bleeds. History of Any Multi-Drug Resistant Organisms: None Reported Past Surgical History: No Surgical Hx Reported Past Anesthesia/Blood Transfusion Reactions: Unable to Obtain Additional Past Anesthesia/Blood Transfusion Reaction / Comm: Pt has never had anesthesia. Smoking Status: Never smoker - Past Family History Mother Family Medical History: Diabetes Mellitus Father History Unknown: Yes Medications and Allergies Home Medications Medication Instructions Recorded Confirmed Type No Known Home Medications 09/13/20 09/13/20 History Allergies Allergy/AdvReac Type Severity Reaction Status Date / Time No Known Allergies Allergy Verified 09/13/20 22:58 Surgical - Exam Vital Signs Temp Pulse Resp BP Pulse Ox 97.7 F 70 18 173/110 98 09/13/20 21:42 09/13/20 21:42 09/13/20 21:42 09/13/20 21:42 09/13/20 21:42 Results - Labs 09/16/20 07:37 09/17/20 09:16 Abnormal Lab Results - Last 24 Hours (Table) 09/17/20 Range/Units 09:16 Carbon Dioxide 32 H (22-30) mmol/L BUN 68 H (9-20) mg/dL Creatinine 11.83 H* (0.66-1.25) mg/dL Calcium 6.7 L (8.4-10.2) mg/dL Diabetes panel 09/17/20 Range/Units 09:16 Sodium 139 (137-145) mmol/L Potassium 3.8 (3.5-5.1) mmol/L Chloride 99 (98-107) mmol/L Carbon Dioxide 32 H (22-30) mmol/L BUN 68 H (9-20) mg/dL Creatinine 11.83 H* (0.66-1.25) mg/dL Glucose 89 (74-99) mg/dL Calcium 6.7 L (8.4-10.2) mg/dL Calcium panel 09/17/20 Range/Units 09:16 Calcium 6.7 L (8.4-10.2) mg/dL Pituitary panel 09/17/20 Range/Units 09:16 Sodium 139 (137-145) mmol/L Potassium 3.8 (3.5-5.1) mmol/L Chloride 99 (98-107) mmol/L Carbon Dioxide 32 H (22-30) mmol/L BUN 68 H (9-20) mg/dL Creatinine 11.83 H* (0.66-1.25) mg/dL Glucose 89 (74-99) mg/dL Calcium 6.7 L (8.4-10.2) mg/dL Adrenal panel 09/17/20 Range/Units 09:16 Sodium 139 (137-145) mmol/L Potassium 3.8 (3.5-5.1) mmol/L Chloride 99 (98-107) mmol/L Carbon Dioxide 32 H (22-30) mmol/L BUN 68 H (9-20) mg/dL Creatinine 11.83 H* (0.66-1.25) mg/dL Glucose 89 (74-99) mg/dL Calcium 6.7 L (8.4-10.2) mg/dL
--- NOTE | 2020-09-17 15:26 | IR ---
Fluoroscopy HISTORY: Dialysis catheter placement 1.3 minutes fluoroscopy time supplied to the referring clinician. 619 intraoperative C-arm images do cument the procedure. See dictated report from vascular surgery.
--- NOTE | 2020-09-17 15:32 | P.DS ---
Providers Date of admission: 09/13/20 22:11 Attending physician: Roselia Friedman Consults: 09/13/20 22:12 Consult Physician Routine Consulting Provider: Vonda Neves Consult Reason/Comments: Renal failure Do you want consulting provider notified?: Already Contacted 09/14/20 11:45 Consult Physician Routine Consulting Provider: Greg Medina Consult Reason/Comments: DIALYSIS CATHETER PERMANENT Do you want consulting provider notified?: Yes Primary care physician: Stated None Hospital Course: 25-year-old pleasant male was transferred from outside hospital for renal failure. Patient presented there with chest discomfort on the right side of the chest on and off last only for a few seconds no associated nausea or diaphoresis lightheadedness. Patient is found to have a fairly highly elevated BNP patient has some ST-T wave changes which are nonspecific troponins were negative. Patient doesn't have any problem with his urination. Patient creatinine is found to be 26 BUN of 167. Nephrology evaluated the patient after an ultrasound of the kidneys which showed small kidneys consistent with chronic any disease. Patient denied using any nephrotoxic nephrotoxic medications. Patient denied a ny hematuria. Urine analysis did show 3+ protein. Obtaining urine random creatinine urine random sodium, urine eosinophils. Patient denied any drug abuse except for occasional marijuana. His chest pain is worse when he lays on his back. 09/15/2020 Patient appears to have chronic kidney disease with shrunken kidneys. Patient is undergoing hemodialysis. Patient is hemodialysis catheter. All the workup force so far for chronic kidney disease is negative. Patient may need a renal biopsy. 09/16/2020 Patient did undergo hemodialysis yesterday will undergo dialysis today as well. Patient has insurance issues because of which the case management is working on Medicaid application. Patient probably will receive a permacath tomorrow and patient will be started on scheduled hemodialysis. 09/17/2020 next and patient is undergoing hemanalysis today as well. Patient creatinine came down to 11. Patient either has a of FSGS are hypertension induced nephropathy. Patient has some proteinuria. Patient will undergo permacath placement. Patient blood pressure is low we'll cut down the dose of Norvasc. Patient had a permacath placed today and patient will undergo outpatient hemodialysis on Sunday patient will be discharged today discussed with the nephrology and vascular surgery. PHYSICAL EXAMINATION: GENERAL: The patient is alert and oriented x3, not in any acute distress. Well developed, well nourished. HEENT: Pupils are round and equally reacting to light. EOMI. No scleral icterus. No conjunctival pallor. Normocephalic, atraumatic. No pharyngeal erythema. No thyromegaly. CARDIOVASCULAR: S1 and S2 present. No murmurs, rubs, or gallops. Permacath on the right side of the chest PULMONARY: Chest is clear to auscultation, no wheezing or crackles. ABDOMEN: Soft, nontender, nondistended, normoactive bowel sounds. No palpable organomegaly. MUSCULOSKELETAL: No joint swelling or deformity. EXTREMITIES: No cyanosis, clubbing, or pedal edema. NEUROLOGICAL: Gross neurological examination did not reveal any focal deficits. SKIN: No rashes. Assessment and Plan Plan: -Chronic kidney disease stage V etiology is probably FSGS are hypertension induced chronic kidney disease. Patient was initiated on hemodialysis. Patient had a permacath that was placed and patient was set up for outpatient hemodialysis and is being discharged today. -Chest pain appears to be secondary to pleuropericarditis from uremia. -Accelerated uncontrolled elevated blood pressures on admission improved now -Renal failure appears to be chronic kidney disease received hemodialysis 1 anemia appears to be anemia secondary to chronic kidney disease received 1 unit of PRBC transfusion with improvement of hemoglobin from 6.6., Patient was started on aranesp -Vitamin D deficiency for which patient was started on vitamin D supplementation, patient is hypocalcemic is secondary to vitamin D deficiency and renal failure -Anion gap as well as non-anion gap metabolic acidosis secondary to renal failure which improved Patient Condition at Discharge: Serious Plan - Discharge Summary Discharge Rx Participant: No New Discharge Prescriptions: New amLODIPine [Norvasc] 5 mg PO DAILY #30 tab Calcium Acetate [PhosLo] 1,334 mg PO TID-W/MEALS #90 tab carvediloL [Coreg] 3.125 mg PO BID-W/MEALS #30 tab Ergocalciferol [Vitamin D2 (1250 Mcg = 22745 Iu)] 1,250 mcg PO Q72H #30 capsule Discharge Medication List Calcium Acetate [PhosLo] 1,334 mg PO TID-W/MEALS #90 tab 09/17/20 [Rx] Ergocalciferol [Vitamin D2 (1250 Mcg = 85514 Iu)] 1,250 mcg PO Q72H #30 capsule 09/17/20 [Rx] amLODIPine [Norvasc] 5 mg PO DAILY #30 tab 09/17/20 [Rx] carvediloL [Coreg] 3.125 mg PO BID-W/MEALS #30 tab 09/17/20 [Rx] Follow up Appointment(s)/Referral(s): [facility] [NON-STAFF] - Nick Daniels MD [REFERRING] - 1 Week Vonda Neves MD [STAFF PHYSICIAN] - 1 Week Activity/Diet/Wound Care/Special Instructions: Indigent form is in chart, please send to [facility] to cover meds. Cardiac and renal diet Discharge Disposition: HOME SELF-CARE
--- NOTE | 2020-09-17 16:38 | XR ---
EXAMINATION TYPE: XR chest 2V DATE OF EXAM: 09/17/2020 COMPARISON: NONE HISTORY: Status post catheter placement. TECHNIQUE: Frontal and lateral views of the chest are obtained. FINDINGS: There is demonstration of a right IJ dialysis catheter with tip overlying the caudal SVC. No focal air space opacity, pleural effusion, or pneumothorax seen. The cardiac silhouette size is w ithin normal limits. There is shortening of the right distal clavicle. Otherwise no acute osseous abn ormality. IMPRESSION: No acute cardiopulmonary process. Status post right central venous catheter. Incidental shortening of the right distal clavicle, may represent posttraumatic osteolysis versus bharati gical changes. Recommend clinical correlation.
[2020-09-17] MEDS: amLODIPine 5 MG TAB PO SCH (17:03)
--- NOTE | 2020-09-17 18:51 | PN ---
PROGRESS NOTE Patient is seen for followup for progressive renal failure most likely end-stage renal disease. He is admitted to the hospital with a creatinine of 24.6 with symptoms of fatigue, weakness and decreased oral intake. No prior labs available for comparison. Ultrasound shows small kidneys. Patient has a history of hypertension diagnosed in his teens which has been untreated. His UA shows proteinuria. Serologies were ordered and they are all negative thus far. The patient has had 2 treatments of hemodialysis. He is scheduled to have the IJ PermCath and to continue with the hemodialysis as outpatient. PHYSICAL EXAMINATION: On examination today, blood pressure was low at 95/60, heart rate 90 per minute. He is afebrile. Examination of the heart S1, S2. Examination of the lungs, bilateral breath sounds are heard. Abdomen is soft, nontender. Examination of lower extremities shows no significant edema. WEBBING WEAVER exam grossly intact. LABS: From today show sodium 139, potassium 3.8, BUN 68, serum creatinine of 11.8. ASSESSMENT: 1. Advanced renal failure, most likely chronic and currently end-stage etiology likely hypertensive nephrosclerosis versus underlying chronic GN. Serologies are negative. The patient will continue with renal replacement therapy. We will discuss other options at the dialysis unit. Currently, I do not think patient is a candidate for PD as he states he has about 40 cats at home and multiple other animals. We will see him for followup as outpatient in [place]. 2. Hypertension. Blood pressure is currently low. I agree with decreasing antihypertensive medications. 3. Hyperphosphatemia, maintained on phosphate binders. 4. Nutrition, vitamin D deficiency, maintained on vitamin D supplementation. 5. Anemia with no active bleeding noted. Stool for occult blood was negative. Maintained on Aranesp. Iron profile did not reveal iron deficiency. However, this was after packed RBCs transfusion. PLAN: Patient can be discharged after PermCath placement for dialysis to be given as outpatient. MMODL / IJN: [id number] /
[2020-09-17] MEDS: FAMOTIDINE 20 MG TAB PO SCH (20:36)
[2020-09-17] MEDS: ONDANSETRON 4 MG/2 ML VIAL IVP PRN (21:22)
[2020-09-18] MEDS: carvediloL 3.125 MG TAB PO SCH (06:50)
[2020-09-18] MEDS: CALCIUM ACETATE 667 MG TAB PO SCH ×2 (06:50→12:20)
[2020-09-18 07:58] LABS: Basophils % (A) 0 %; Eosinophils # (A) 0.3 k/uL (0-0.7); Eosinophils % (A) 4 %; HCT 25.9 % (39.0-53.0); HGB 9.1 gm/dL (13.0-17.5); Lymphocytes # (A) 1.3 k/uL (1.0-4.8); Lymphocytes % (A) 18 %; MCH 29.3 pg (25.0-35.0); MCHC 35.1 g/dL (31.0-37.0); MCV 83.4 fL (80.0-100.0); Mean Platelet Volume 9.1; Monocytes # (A) 0.4 k/uL (0-1.0); Monocytes % (A) 6 %; Neutrophils # (A) 5.1 k/uL (1.3-7.7); Neutrophils % (A) 71 %; Platelet Count 127 k/uL (150-450); RDW 13.5 % (11.5-15.5); WBC 7.2 k/uL (3.8-10.6)
[2020-09-18 08:10] VITALS: RESP 16; TEMP 98.1
[2020-09-18 08:13] LABS: Calcium 7.1 mg/dL (8.4-10.2); Potassium 3.6 mmol/L (3.5-5.1)
[2020-09-18] MEDS ORDERED: amLODIPine 5 MG TAB PO SCH (09:00)
[2020-09-18 11:50] VITALS: BP 139/77; PULSE 83
[2020-09-18] MEDS: ERGOCALCIFEROL 1,250 MCG (50,000 IU) CAPSULE PO SCH (12:20)
--- NOTE | 2020-09-18 15:39 | P.DS ---
Providers Date of admission: 09/13/20 22:11 Attending physician: Roselia Friedman Consults: 09/13/20 22:12 Consult Physician Routine Consulting Provider: Vonda Neves Consult Reason/Comments: Renal failure Do you want consulting provider notified?: Already Contacted 09/14/20 11:45 Consult Physician Routine Consulting Provider: Greg Medina Consult Reason/Comments: DIALYSIS CATHETER PERMANENT Do you want consulting provider notified?: Yes Primary care physician: Stated None Hospital Course: 25-year-old pleasant male was transferred from outside hospital for renal failure. Patient presented there with chest discomfort on the right side of the chest on and off last only for a few seconds no associated nausea or diaphoresis lightheadedness. Patient is found to have a fairly highly elevated BNP patient has some ST-T wave changes which are nonspecific troponins were negative. Patient doesn't have any problem with his urination. Patient creatinine is found to be 26 BUN of 167. Nephrology evaluated the patient after an ultrasound of the kidneys which showed small kidneys consistent with chronic any disease. Patient denied using any nephrotoxic nephrotoxic medications. Patient denied an y hematuria. Urine analysis did show 3+ protein. Obtaining urine random creatinine urine random sodium, urine eosinophils. Patient denied any drug abuse except for occasional marijuana. His chest pain is worse when he lays on his back. 09/15/2020 Patient appears to have chronic kidney disease with shrunken kidneys. Patient is undergoing hemodialysis. Patient is hemodialysis catheter. All the workup force so far for chronic kidney disease is negative. Patient may need a renal biopsy. 09/16/2020 Patient did undergo hemodialysis yesterday will undergo dialysis today as well. Patient has insurance issues because of which the case management is working on Medicaid application. Patient probably will receive a permacath tomorrow and patient will be started on scheduled hemodialysis. 09/17/2020 next and patient is undergoing hemanalysis today as well. Patient creatinine came down to 11. Patient either has a of FSGS are hypertension induced nephropathy. Patient has some proteinuria. Patient will undergo permacath placement. Patient blood pressure is low we'll cut down the dose of Norvasc. 09/18/2020 Patient seen on follow-up, creatinine is down to 9.09 today, he has had permacath placed and has been set up for outpatient hemodialysis Constitutional: Denied any fatigue denied any fever. Cardio vascular: denied any chest pain, palpitations Gastrointestinal denied any nausea vomiting Pulmonary: Denied any shortness of breath cough Neurologic denied any new focal deficits PHYSICAL EXAMINATION: GENERAL: The patient is alert and oriented x3, not in any acute distress. Well developed, well nourished. HEENT: Pupils are round and equally reacting to light. EOMI. No scleral icterus. No conjunctival pallor. Normocephalic, atraumatic. No pharyngeal erythema. No thyromegaly. CARDIOVASCULAR: S1 and S2 present. No murmurs, rubs, or gallops. PULMONARY: Chest is clear to auscultation, no wheezing or crackles. ABDOMEN: Soft, nontender, nondistended, normoactive bowel sounds. No palpable organomegaly. MUSCULOSKELETAL: No joint swelling or deformity. EXTREMITIES: No cyanosis, clubbing, or pedal edema. NEUROLOGICAL: Gross neurological examination did not reveal any focal deficits. SKIN: No rashes. Plan: -Chest pain appears to be secondary to pleuropericarditis from uremia. Undergoing hemodialysis today as well. Will receive permacath today and arrangement for outpatient hemodialysis are being made. -Renal failure appears to be chronic kidney disease appears to be stage V in May be a competent of acute renal failure possibly due to hypertensive nephrosclerosis versus possible FSGS: Patient has had permacath placed and he will continue on hemodialysis post discharge which has been arranged. 1 anemia appears to be anemia secondary to chronic kidney disease received 1 unit of PRBC transfusion with improvement of hemoglobin from 6.6., Patient was started on aranesp hemoglobin 9.1 posttransfusion. . -Vitamin D deficiency for which patient was started on vitamin D supplementation, patient is hypocalcemic is secondary to vitamin D deficiency and renal failure -Anion gap as well as non-anion gap metabolic acidosis secondary to renal failure which: Improved -Hypocalcemia secondary to metabolic bone disease calcium will be replaced patient will be started on PhosLo for elevated phosphorus and low calcium. DVT prophylaxis: Early ambulation Patient Condition at Discharge: Serious Plan - Discharge Summary Discharge Rx Participant: No New Discharge Prescriptions: New amLODIPine [Norvasc] 5 mg PO DAILY #30 tab Calcium Acetate [PhosLo] 1,334 mg PO TID-W/MEALS #90 tab carvediloL [Coreg] 3.125 mg PO BID-W/MEALS #30 tab Ergocalciferol [Vitamin D2 (1250 Mcg = 90826 Iu)] 1,250 mcg PO Q72H #30 capsule Discharge Medication List Calcium Acetate [PhosLo] 1,334 mg PO TID-W/MEALS #90 tab 09/17/20 [Rx] Ergocalciferol [Vitamin D2 (1250 Mcg = 27561 Iu)] 1,250 mcg PO Q72H #30 capsule 09/17/20 [Rx] amLODIPine [Norvasc] 5 mg PO DAILY #30 tab 09/17/20 [Rx] carvediloL [Coreg] 3.125 mg PO BID-W/MEALS #30 tab 09/17/20 [Rx] Follow up Appointment(s)/Referral(s): Vonda Neves MD [STAFF PHYSICIAN] - 1 Week [facility] [NON-STAFF] - 09/20/20 7:15 am (Please arrive at 7AM on Sunday for 1st treatment of dialysis) Nick Daniels MD [REFERRING] - 1 Week Patient Instructions/Handouts: Chronic Kidney Disease (DC), Dialysis Diet (DC) Activity/Diet/Wound Care/Special Instructions: Indigent form is in chart, please send to [facility] to cover meds. Cardiac and renal diet pt is set up at the [facility] office - first treatment is sunday september 20, 2020 at 7:20am Discharge Disposition: HOME SELF-CARE
== END 2020-09-18 16:00 | disposition home or self-care (01) | DRG 683 ==
LOC: EC 21:39 → 3SCARD 22:11
PROVIDERS: ADMIT Hospitalist; ATTEND Hospitalist
PROC: 02HV33Z Insertion of Infusion Device into Superior Vena Cava, Percutaneous Approach (ICD-10-PCS; principal; 2020-09-14 19:10)
PROC: 30233N1 Transfusion of Nonautologous Red Blood Cells into Peripheral Vein, Percutaneous Approach (ICD-10-PCS; 2020-09-14 19:10)
PROC: 06HM33Z Insertion of Infusion Device into Right Femoral Vein, Percutaneous Approach (ICD-10-PCS; 2020-09-15)
PROC: 02HV33Z Insertion of Infusion Device into Superior Vena Cava, Percutaneous Approach (ICD-10-PCS; 2020-09-17)
PROC: 5A1D70Z Performance of Urinary Filtration, Intermittent, Less than 6 Hours Per Day (ICD-10-PCS; 2020-09-17 15:15)
DX: N17.9 Acute kidney failure, unspecified (principal); E87.2 Acidosis; I12.0 Hypertensive chronic kidney disease with stage 5 chronic kidney disease or end stage renal disease; I31.9 Disease of pericardium, unspecified; N18.6 End stage renal disease; D63.1 Anemia in chronic kidney disease; E55.9 Vitamin D deficiency, unspecified; Z83.3 Family history of diabetes mellitus; N27.1 Small kidney, bilateral; Z99.2 Dependence on renal dialysis
CPT/HCPCS: 36415; 36556; 36558; 71046; 76770; 76937; 77001; 80048; 80053; 80306; 81001; 82272; 82306; 82553; 82570; 83540; 83550; 83735; 83930; 83935; 84100; 84133; 84300; 84484; 85025; 85027; 85610; 86038; 86160; 86225; 86255; 86704; 86706; 86850; 86900; 86901; 86920; 87340; 90935; 93005; 99285

== ENCOUNTER 2020-11-15 10:21 | Inpatient (IN) | payer OTHER ==
--- NOTE | 2020-11-15 10:49 | ED ---
General Adult HPI - General Chief complaint: Recheck/Abnormal Lab/Rx Stated complaint: Catheter problems Time Seen by Provider: 11/15/20 10:29 Source: patient, EMS Mode of arrival: EMS Limitations: no limitations - History of Present Illness Initial comments: Patient is a 25-year-old male with history of end-stage renal disease on hemodialysis,MWF, who presents as a transfer from [facility] secondary to possible port issue and fever. According to the patient, patient had a lot of "salty foods over the weekend", and then it woke up Sunday with swelling on the right side of his chest and swelling of the left side of his face. He states he was having diarrhea over the weekend as well and concern for dehydration. He states yesterday he thought he was having some chest tightness more on the right side of the chest and swelling around his port site. He also thought he had a fever yesterday as well. Patient states he presented for dialysis this morning and was advised to come to the ER for further evaluation. He did receive his dialysis on Sunday. Patient was given 1 g of Rocephin prior to being transferred here. Patient did have lab work at [facility], normal white count, chronic anemia with hemoglobin 9.2, troponin is negative, BNP was elevated at 4600, creatinine was 16, BUN 79. - Related Data Previous Rx's Medication Instructions Recorded Calcium Acetate [PhosLo] 1,334 mg PO TID-W/MEALS #90 tab 09/17/20 Ergocalciferol [Vitamin D2 (1250 1,250 mcg PO Q72H #30 capsule 09/17/20 Mcg = 57559 Iu)] amLODIPine [Norvasc] 5 mg PO DAILY #30 tab 09/17/20 carvediloL [Coreg] 3.125 mg PO BID-W/MEALS #30 tab 09/17/20 Allergies Allergy/AdvReac Type Severity Reaction Status Date / Time No Known Allergies Allergy Verified 11/15/20 10:26 Review of Systems ROS Statement: Those systems with pertinent positive or pertinent negative responses have been documented in the HPI. ROS Other: All systems not noted in ROS Statement are negative. Past Medical History Past Medical History: Dialysis, Hypertension Additional Past Medical History / Comment(s): Covid 19 03/2020, past protein in urine, occasional nose bleeds. History of Any Multi-Drug Resistant Organisms: None Reported Past Surgical History: No Surgical Hx Reported Past Anesthesia/Blood Transfusion Reactions: Unable to Obtain Additional Past Anesthesia/Blood Transfusion Reaction / Comment(s): Pt has never had anesthesia. Past Psychological History: No Psychological Hx Reported Smoking Status: Never smoker Past Alcohol Use History: None Reported Past Drug Use History: None Reported - Past Family History Mother Family Medical History: Diabetes Mellitus Father History Unknown: Yes General Exam - General Exam Comments Initial Comments: GENERAL: Patient is well-developed and well-nourished. Patient is nontoxic and in no acute distress, diaphoretic. HEAD: Atraumatic, normocephalic. EYES: Pupils equal round and reactive to light, extraocular movements intact, sclera anicteric, conjunctiva are normal. Eyelids were unremarkable. ENT: TMs normal, nares patent, oropharynx clear without exudates. Moist mucous membranes. NECK: Normal range of motion, supple without lymphadenopathy or JVD. LUNGS: Unlabored respirations. Breath sounds clear to auscultation bilaterally and equal. No wheezes rales or rhonchi. HEART: Regular rate and rhythm without murmurs, rubs or gallops. ABDOMEN: Soft, nontender, normoactive bowel sounds. No guarding, no rebound. No masses appreciated. : Deferred MUSCULOSKELETAL: Normal extremities with adequate strength and normal range of motion, no pitting or edema. No clubbing or cyanosis. NEUROLOGICAL: Patient is alert and oriented x 3. Motor and sensory are also intact. Cranial nerves II through XII grossly intact. Symmetrical smile. Normal speech, normal gait. PSYCH: Normal mood, normal affect. SKIN: Warm, Dry, normal turgor, no rashes or lesions noted. Dialysis port present in the right upper chest, no erythema, no signs of infection. Limitations: no limitations Course Vital Signs 11/15/20 10:23 Temperature 100.1 F H Pulse Rate 96 Respiratory 20 Rate Blood Pressure 135/56 O2 Sat by Pulse 99 Oximetry Medical Decision Making - Medical Decision Making Patient is a 25-year-old male with end-stage renal disease, on hemodialysis, MWF, sent from [facility] as a transfer for possible infection, pain around the catheter. He did not receive his dialysis today. He did arrive febrile to 100.1, rest of vitals were within normal limits. Blood cultures were obtained from [facility] prior to transfer. He received 1 g Rocephin at [facility] as well. We will give him Tylenol for the fever, urinalysis and rapid covid is pending, start vancomycin. White count was 9.2 hemoglobin is 9.2, does have history of chronic anemia. Troponin 0.013, BUN is 79 creatinine 16. Patient will be admitted with consult to nephrology and infectious disease. Patient accepted by Dr. Bhatt. Case discussed with Dr. Jung. - Lab Data Lab Results 11/15/20 Range/Units 11:02 Coronavirus (PCR) Not Detected (Not Detectd) Disposition Clinical Impression: Renal failure, Fever Disposition: ADMITTED IP TO THIS HOSP Condition: Stable Referrals: None,Stated [Primary Care Provider] - 1-2 days Decision Date: 11/15/20 Decision Time: 11:29
[2020-11-15] MEDS ORDERED: VANCOMYCIN IV PER PHARMACY 1 EACH MISC MISCELLANE PRN ×2 (10:53→10:59)
[2020-11-15] MEDS ORDERED: ACETAMINOPHEN TAB 500 MG TAB PO STA (10:53)
[2020-11-15] MEDS ORDERED: VANCOMYCIN 1,250 MG in SODIUM CHLORIDE 0.9% 250 ML IVPB STA (10:58)
[2020-11-15] MEDS ORDERED: NALOXONE 0.4 MG/ML 1 ML VIAL IV PRN (11:22)
[2020-11-15] MEDS ORDERED: ONDANSETRON 4 MG/2 ML VIAL IVP PRN (11:22)
[2020-11-15] MEDS ORDERED: SODIUM CHLORIDE 0.9% 500 ML 250 ML IV STA (11:36)
[2020-11-15 12:50] LABS: Appearance,Urine Clear (Clear); Bilirubin,Urine Negative (Negative); Blood,Urine Trace (Negative); Color,Urine Light Yellow; Glucose,Urine (UA) 2+ (Negative); Ketones,Urine Negative (Negative); Leukocyte Esterase,Urine Negative (Negative); Nitrite,Urine Negative (Negative); Protein,Urine 3+ (Negative); RBC,Urine 3 /hpf (0-5); Specific Gravity,Urine 1.008 (1.001-1.035); Squamous Epithelial Cell,Urine <1 /hpf (0-4); Urobilinogen,Urine <2.0 mg/dL (<2.0); WBC,Urine 1 /hpf (0-5)
[2020-11-15] MEDS: ACETAMINOPHEN TAB 325 MG TAB PO PRN (22:41)
--- NOTE | 2020-11-16 00:49 | HP ---
HISTORY AND PHYSICAL A 25-year-old male with end-stage renal disease, hemodialysis Sunday, Sunday, Sunday, came into the hospital for postop fever, possible pustular discharge from his right chest tube. Nausea, some diarrhea and some dehydration over the weekend, had some fevers/. Given 1 g Rocephin in the ER, transferred from [facility], wait for Renal and Infectious Disease. LABS: BNP was elevated at 4600. Creatinine is 1.6, BUN 79. Home medicines PhosLo, vitamin D2, Norvasc 5 mg daily, carvedilol 3.125 b.i.d. ALLERGIES: None. REVIEW OF SYSTEMS: Fourteen point review of systems otherwise negative. ( ) Covid-19 04/18/2020. Dialysis, hypertension. ( ) FAMILY HISTORY: Mother with diabetes mellitus. PHYSICAL EXAM: Temperature is a 100.1, pulse 96, respiratory 18-20, blood pressure 130s over 50s. CARDIOVASCULAR: S1, S2. LUNGS: Clear. GI: Soft. HEMATOLOGY: Negative Homans. PSYCH: Fair mood and affect. NEUROLOGIC: Alert, orient x3. OPHTHALMOLOGICAL: Pupils equal, round, reactive. EARS: External ear canals within normal limits. VASCULAR: Normal dorsalis pedis, posterior tibial, radial pulse. ASSESSMENT: 1. End-stage renal disease, possible catheter infection. 2. Acute on chronic anemia. Infectious Disease, Nephrology will see the patient. Follow up in next 24 to 48 hours. MMODL / IJN: [id number] /
[2020-11-16] MEDS: ACETAMINOPHEN TAB 325 MG TAB PO PRN (05:44)
--- NOTE | 2020-11-16 06:31 | HP ---
HISTORY AND PHYSICAL BLANK MMODL / IJN: [id number] /
[2020-11-16 06:53] LABS: Basophils % (A) 0 %; Eosinophils % (A) 1 %; HCT 28.6 % (39.0-53.0); HGB 9.8 gm/dL (13.0-17.5); Lymphocytes # (A) 0.7 k/uL (1.0-4.8); Lymphocytes % (A) 14 %; MCH 31.1 pg (25.0-35.0); MCHC 34.3 g/dL (31.0-37.0); Mean Platelet Volume 8.6; Monocytes # (A) 0.4 k/uL (0-1.0); Monocytes % (A) 8 %; Neutrophils # (A) 3.8 k/uL (1.3-7.7); Neutrophils % (A) 76 %; Platelet Count 140 k/uL (150-450); RBC 3.16 m/uL (4.30-5.90); RDW 14.7 % (11.5-15.5)
[2020-11-16 06:54] LABS: MCV 90.7 fL (80.0-100.0)
--- NOTE | 2020-11-16 07:33 | CONS ---
CONSULTATION DATE OF SERVICE: 11/15/2020 REASON FOR CONSULTATION: Fever, possible port infection. HISTORY OF PRESENT ILLNESS: The patient is a 25-year-old male with a past medical history significant for end-stage renal disease, on hemodialysis through the right subclavian Perma catheter that has been placed about 2 months ago and the patient is on hemodialysis for about 2 months now. The patient presented to the [facility] with pain to the right side of the chest, right side of the abdomen, along with the fever. The patient woke up day morning with swelling on the right side of his chest and right side of his body. The patient also has some diarrhea. Denies significant URI symptoms. No cough or sputum production. No abdominal pain or any diarrhea. The patient has been continued to get worse, hence he presented to the [facility], where the patient was evaluated. There was concern for possible port infection. He was given a dose of Rocephin and vancomycin and the patient subsequently transferred to [facility] for further evaluation. On arrival to the ER, the patient did have a fever of 100.2 degrees Fahrenheit. The patient is hemodynamically stable, not on pressor support. The patient is currently 100% on room air. Urine was negative. The patient was started on vancomycin, Pharmacy to dose. Infectious Disease was consulted for further management of antibiotic therapy. REVIEW OF SYSTEMS: Positive points have been mentioned in HPI. Rest of systems are negative. PAST MEDICAL HISTORY: End-stage renal disease, on hemodialysis, hypertension, COVID-19 infection. PAST SURGICAL HISTORY: Perma catheter placement. SOCIAL HISTORY: Denies smoking, drinking, drug use. FAMILY HISTORY: Mother with history of diabetes mellitus. ALLERGIES: CHLORHEXIDINE. MEDICATIONS: The patient is currently on Tylenol, vancomycin, Pharmacy dosing, Narcan, Zofran. PHYSICAL EXAMINATION: Blood pressure is 170/94 with a pulse of 81, temperature is 101.8, he is 100% room air. The patient is a young male lying in bed in no distress. No tachypnea or accessory muscles of respiration use. HEENT: Examination shows no pallor or scleral icterus. Oral mucous membrane is dry. NECK: Trachea central, no thyromegaly. LUNGS: Unlabored breathing. Clear to auscultation. No wheeze or crackle. HEART: S1, S2. Regular rate and rhythm. ABDOMEN: Soft, no tenderness, no rigidity. EXTREMITIES: No edema feet. SKIN: No rash. NEUROLOGICAL: The patient is awake, alert, oriented and affect normal. LABS: Most of the workup was done at [facility]. Here, the patient did have blood cultures drawn, which are currently pending. Urine was negative. Chest x-ray at [facility] was negative for any pneumonia. DIAGNOSTIC IMPRESSION: Patient admitted to the hospital with generalized not feeling well in this patient who did have a Perma catheter for dialysis and concern for possible PermCath infection, as the patient currently does not have any other obvious focus of infection. No respiratory symptoms. He is currently 100% on room air. Abdomen was soft on examination. No evidence of any cellulitis and urine was negative. PLAN: 1. Vancomycin, pharmacy to dose target of 15. 2. Will add cefepime, 2 grams daily to cover for the gram-negative, while waiting for the culture to finalize. 3. Repeat CBC inflammatory markers pneumonia. 4. We will follow on his clinical condition and culture to further adjust medication if needed. Thank you for this consultation. Will follow this patient along with you. MMODL / IJN: [id number] /
[2020-11-16] MEDS ORDERED: VANCOMYCIN 1,250 MG in SODIUM CHLORIDE 0.9% 250 ML IVPB ONE (08:00)
[2020-11-16] MEDS: CALCIUM ACETATE 667 MG TAB PO SCH ×3 (08:33→17:54)
[2020-11-16] MEDS ORDERED: CEFEPIME 2 GM in SODIUM CHLORIDE 0.9% 100 ML IVPB STA (09:10)
--- NOTE | 2020-11-16 09:13 | P.NPCON ---
History of Present Illness - Reason for Consult end stage renal disease - History of Present Illness Reason for consultation: End-stage renal disease History of present illness: Patient is a 25-year-old male seen in renal consultation for end-stage renal disease. He is maintained on hemodialysis on Sunday schedule. Patient was started on dialysis in August 2020. Serologies were noted to be negative in the past. However he was noted to have atrophic kidneys. Patient presented to [facility] with fever and swelling around the permacath site. He had blood cultures drawn there which are now positive for gram- positive cocci. He also had blood cultures drawn from the permacath yesterday. He is scheduled to undergo hemodialysis today. Patient states his oral intake has been poor the last few days. No vomiting or diarrhea. No chest pain or shortness of breath. He does make decent urine. He tested negative for coronavirus. No abdominal pain. No edema. Vital signs are stable. General: The patient appeared well nourished and normally developed. HEENT: Head exam is unremarkable. Neck is without jugular venous distension. LUNGS: Breath sounds decreased. HEART: Rate and Rhythm are regular. ABDOMEN: Soft, no distention. EXTREMITITES: No edema. No drainage noted from the permacath site. Past Medical History Past Medical History: Dialysis, Hypertension Additional Past Medical History / Comment(s): Covid 19 03/2020, past protein in urine, occasional nose bleeds. History of Any Multi-Drug Resistant Organisms: None Reported Past Surgical History: No Surgical Hx Reported Past Anesthesia/Blood Transfusion Reactions: No Reported Reaction Additional Past Anesthesia/Blood Transfusion Reaction / Comment(s): Had no trouble, pt state sthey had anesthesia when port was put in. Past Psychological History: No Psychological Hx Reported Additional Psychological History / Comment(s): Pt resides with 2 family members and a roomate. He does not drive but states has no problem getting to appts. He is independent. Smoking Status: Never smoker Past Alcohol Use History: None Reported Past Drug Use History: Marijuana Additional Drug Use History / Comment(s): Pt states he smokes marijuana daily, about 6 bowls. He states he will occasionall use adderall. - Past Family History Mother History Unknown: Yes Family Medical History: Diabetes Mellitus Additional Family Medical History / Comment(s): heart mummur. Grandmother had COPD, A fib and CHF. Father History Unknown: Yes Additional Family Medical History / Comment(s): Grandfather had dialysis for a couple of years. Medications and Allergies Home Medications Medication Instructions Recorded Confirmed Type Ergocalciferol [Vitamin D2 (1250 1,250 mcg PO Q72H #30 capsule 09/17/20 11/15/20 Rx Mcg = 10418 Iu)] amLODIPine [Norvasc] 5 mg PO DAILY #30 tab 09/17/20 11/15/20 Rx Auryxia 210mg 2 tab PO AC-TID 11/15/20 11/15/20 History Calcium Acetate [PhosLo] 1,334 mg PO AC-TID 11/15/20 11/15/20 History Calcium Acetate [Phoslo] 1,334 mg PO DAILY PRN 11/15/20 11/15/20 History Renaplex-D 1 tab PO DAILY 11/15/20 11/15/20 History carvediloL [Coreg] 3.125 mg PO AC-BID 11/15/20 11/15/20 History Allergies Allergy/AdvReac Type Severity Reaction Status Date / Time chlorhexidine Allergy Itching Verified 11/15/20 13:30 Physical Exam Vitals: Vital Signs Temp Pulse Pulse Resp BP BP Pulse Ox 11/16/20 04:45 99.2 F 67 18 154/77 97 11/16/20 00:21 98.9 F 11/15/20 22:25 85 16 11/15/20 21:10 101.8 F H 81 20 170/94 100 11/15/20 20:14 99.6 F 88 16 168/79 100 11/15/20 16:00 98.4 F 83 20 145/89 99 11/15/20 13:20 84 20 161/75 98 11/15/20 12:49 98.9 F 11/15/20 11:32 101.2 F H 104 H 20 134/85 97 11/15/20 10:23 100.1 F H 96 20 135/56 99 Intake and Output 11/15/20 11/16/20 11/16/20 22:59 06:59 14:59 Intake Total 100 Balance 100 Intake: Oral 100 Other: # Voids 2 Results - Lab Results 11/16/20 05:50 Assessment and Plan Plan: Assessment: 1. End-stage renal disease maintained on hemodialysis on Sunday was a fatty schedule via permacath. 2. Gram-positive bacteremia secondary to permacath infection. 3. Anemia of chronic kidney disease. 4. Chronic kidney disease mineral bone disease maintained on PhosLo. 5. Hypertension with chronic kidney disease. Plan: Hemodialysis today. Await infectious disease recommendations. Will discontinue permacath after dialysis today if needed. Follow-up cultures. Monitor vancomycin levels. Target level near 15. Resume home antihypertensives. Add Aranesp. Thank you for the consultation. I will continue to follow the patient with you during his hospital stay.
[2020-11-16] MEDS ORDERED: DARBEPOETIN ALFA 40 MCG/0.4 ML SYRINGE SQ SCH (09:15)
[2020-11-16] MEDS: carvediloL 3.125 MG TAB PO SCH ×2 (10:41→17:54)
[2020-11-16] MEDS: amLODIPine 5 MG TAB PO SCH (10:41)
[2020-11-16] MEDS ORDERED: LIDOCAINE 1% INJ 10MG/ML (20 ML MDV) SQ ONE (12:28)
[2020-11-16 14:52] LABS: African American GFR (CKD) 3.9 (60.0-200.0); Albumin 4.1 g/dL (3.80-4.90); Albumin/Globulin Ratio 1.32 (1.60-3.17); Anion Gap 21.4 mmol/L (4.00-12.00); BUN/Creat Ratio 5.86 Ratio (12.00-20.00); Calcium 9.3 mg/dL (8.7-10.3); Carbon Dioxide 19.6 mmol/L (21.6-31.8); Globulin 3.1 g/dL (1.6-3.3); Non-African American GFR(CKD) 3.4 (60.0-200.0); Potassium 4.7 mmol/L (3.5-5.5); Total Bilirubin 0.4 mg/dL (0.2-1.2); Total Protein 7.2 g/dL (6.2-8.2)
[2020-11-16 18:23] LABS: C Reactive Protein 11.2 mg/dL (0.0-0.8)
--- NOTE | 2020-11-17 00:03 | PN ---
PROGRESS NOTE DATE OF SERVICE: 11/16/2020 REASON FOR FOLLOWUP: MSSA bacteremia secondary to PermCath infection. INTERVAL HISTORY: Patient is afebrile. The patient is breathing comfortably. Overall, pain and discomfort to the right side of the chest has decreased in intensity. Denies having any chest pain. No shortness of breath or cough. No abdominal pain, no diarrhea. EXAMINATION: Vital signs are stable with a T-max of 98. GENERAL DESCRIPTION: Patient is a young male lying in bed no distress. RESPIRATORY SYSTEM: Unlabored breathing, clear to auscultation anteriorly. HEART: S1, S2. Regular rate and rhythm. ABDOMEN: Soft, no tenderness. LABS: Blood cultures came back positive with MSSA. DIAGNOSTIC IMPRESSION AND PLAN: Patient with MSSA bacteremia secondary to PermCath infection. Vascular surgery consult. ( ) Antibiotic adjusted to cefazolin. Plan for daily blood cultures. Also blood cultures ( ) with negative blood cultures ( ) He will get a home catheter. Discussed with Nephrology. MMODL / IJN: [id number] /
--- NOTE | 2020-11-17 00:59 | PN ---
PROGRESS NOTE The patient positive blood cultures for Staph aureus. Vascular port has been removed for infection, started on vancomycin. Await for Infectious Disease to see him. LABS: Hemoglobin is 9.8, sodium 134, potassium 4.7, BUN is 99, creatinine 16.9. CRP is 11.2. Negative troponins. Yao virus not detected. PHYSICAL EXAM: CARDIOVASCULAR: S1, S2. LUNGS: Clear. GI: Soft. HEMATOLOGY: Negative Homans. ASSESSMENT: MRSA cellulitis, MRSA bacteremia, Staph aureus. Continue with vancomycin. New vascular port will have to be placed. Follow up in next 24 to 48 hours for possible discharge after blood cultures negative for 72 hours. Meantime, we will have to get a new vascular port. Continue with IV antibiotics. MMODL / IJN: [id number] /
[2020-11-17] MEDS: CALCIUM ACETATE 667 MG TAB PO SCH ×3 (08:03→18:27)
[2020-11-17] MEDS: carvediloL 3.125 MG TAB PO SCH ×2 (08:04→18:27)
[2020-11-17] MEDS: amLODIPine 5 MG TAB PO SCH (08:04)
[2020-11-17] MEDS ORDERED: CEFEPIME 1 GM in SODIUM CHLORIDE 0.9% 50 ML IVPB SCH (09:00)
--- NOTE | 2020-11-17 13:10 | P.PN ---
Subjective Patient is seen in follow-up for end-stage renal disease. He is maintained on hemodialysis on Sunday schedule. Permacath removed November 16 due to bacteremia. Has good urine output. No active complaints. Vital signs are stable. General: The patient appeared well nourished and normally developed. HEENT: Head exam is unremarkable. Neck is without jugular venous distension. LUNGS: Breath sounds decreased. HEART: Rate and Rhythm are regular. ABDOMEN: Soft, no distention. EXTREMITITES: No edema. Objective - Vital Signs Vital signs: Vital Signs Temp 98.8 F 11/17/20 11:35 Pulse 73 11/17/20 11:35 Resp 17 11/17/20 11:35 BP 141/65 11/17/20 11:35 Pulse Ox 97 11/17/20 11:35 Intake & Output 11/16/20 11/17/20 11/17/20 18:59 06:59 18:59 Intake Total 700 340 Output Total 500 Balance 200 340 Intake: Intake, IV Titration 50 Amount ceFAZolin 2 gm In Sodium 50 Chloride 0.9% 50 ml @ 100 mls/hr IVPB Q12H [facility] Rx# :[id number] Oral 700 290 Output: Hemodialysis 500 Other: Voiding Method Toilet Toilet # Voids 2 # Bowel Movements 1 - Labs CBC & Chem 7: 11/16/20 05:50 11/16/20 05:50 Labs: Abnormal Lab Results - Last 24 Hours (Table) 11/16/20 11/16/20 Range/Units 05:50 05:50 Sodium 134 L (135-145) mmol/L Chloride 93 L (96-109) mmol/L Carbon Dioxide 19.6 L (21.6-31.8) mmol/L Anion Gap 21.40 H (4.00-12.00) mmol/L BUN 99.0 H (9.0-27.0) mg/dL Creatinine 16.9 H* (0.6-1.5) mg/dL Est GFR (CKD-EPI)AfAm 3.9 L (60.0-200.0) Est GFR (CKD-EPI)NonAf 3.4 L (60.0-200.0) BUN/Creatinine Ratio 5.86 L (12.00-20.00) Ratio AST 39 H (14-35) U/L C-Reactive Protein 11.2 H (0.0-0.8) mg/dL Albumin/Globulin Ratio 1.32 L (1.60-3.17) g/dL Procalcitonin 4.96 H (0.02-0.09) ng/mL Microbiology - Last 24 Hours (Table) 11/16/20 05:50 Blood Culture - Preliminary Blood No Growth after 24 hours 11/16/20 16:15 Catheter Tip Culture - Preliminary Catheter Tip 11/15/20 17:15 Blood Culture Gram Stain - Preliminary Blood Blood Culture - Preliminary Staphylococcus aureus 11/15/20 17:15 Blood Culture - Final Blood Assessment and Plan Plan: Assessment: 1. End-stage renal disease maintained on hemodialysis on Sunday was a fatty schedule via permacath. 2. Staph aureus bacteremia secondary to permacath infection. Permacath removed November 16. Infectious disease following. 3. Anemia of chronic kidney disease. On Aranesp. 4. Chronic kidney disease mineral bone disease maintained on PhosLo. 5. Hypertension with chronic kidney disease. Plan: Last hemodialysis on November 16. Await infectious disease clearance for new permacath insertion. Monitor vancomycin levels. Target level near 15. Continue to check labs daily.
--- NOTE | 2020-11-17 17:21 | PN ---
PROGRESS NOTE DATE OF SERVICE: 11/17/2020. REASON FOR FOLLOW UP: MSSA bacteremia secondary to PermCath infection. INTERVAL HISTORY: The patient is afebrile. The patient did have removal of his PermCath yesterday after dialysis. The patient has tolerated the procedure. Patient currently breathing comfortably. Denies having any chest pain, shortness of breath or cough. No abdominal pain, no diarrhea. PHYSICAL EXAMINATION: Blood pressure 141/65, pulse of 73, temperature 98.8. He is 97% on room air. General description is a middle-aged male lying in bed in no distress. Respiratory system: Unlabored breathing, clear to auscultation anteriorly. Heart S1, S2. Regular rate and rhythm. Abdomen soft, no tenderness. LABS: Hemoglobin 9.1, white count of 5.0, BUN of 99, creatinine is 16.9. DIAGNOSTIC IMPRESSION AND PLAN: Patient with MSSA bacteremia secondary to PermCath, has been discontinued. The patient is covered with cefazolin. Also, blood cultures are negative. ( ) he will get another PermCath. Continue supportive care. MMODL / IJN: [id number] /
--- NOTE | 2020-11-17 17:21 | CONS ---
CONSULTATION HISTORY: This is a 25-year-old gentleman who had a dialysis catheter placed in the past for dialysis. Patient came with history of infected dialysis catheter. The patient has a history of fever and patient had dialysis. We will schedule for removal of the dialysis catheter. PERSONAL HISTORY: No known allergies. PHYSICAL EXAMINATION: NECK: Supple. Trachea central. CHEST: Clear. ABDOMEN: Soft. There is a slight discharge noted at the right chest wall where IJ catheter has been. PLAN: We will remove the dialysis catheter. We will send the tip of the catheter for culture and sensitivity. MMODL / IJN: [id number] /
--- NOTE | 2020-11-18 02:50 | PN ---
PROGRESS NOTE A 25-year-old white male fever possible port infection. Catheter has been removed. Positive blood cultures for Staph aureus. Continue on IV vancomycin. New catheter will have to be placed for dialysis well to be done. Wait for infection to clear up. Cardiovascular: S1, S2. Lungs clear. GI soft. Hematology negative Homans. Ambulation is good. ASSESSMENT: 1. End-stage renal disease. 2. Possible port infection. 3. Fever. Continue current treatment. Follow up in the next 24 to 48 hours. Continue with vancomycin. Wound care. MMODL / IJN: [id number] /
[2020-11-18 07:33] LABS: Anion Gap 15 mmol/L; Blood Urea Nitrogen 71 mg/dL (9-20); Carbon Dioxide 23 mmol/L (22-30); Chloride 102 mmol/L (98-107); Glucose 92 mg/dL (74-99); Potassium 4.6 mmol/L (3.5-5.1); Sodium 140 mmol/L (137-145)
[2020-11-18 07:38] LABS: African American GFR (CKD) 4 (>60 ml/min/1.73 sqM); Non-African American GFR(CKD) 3 (>60 ml/min/1.73 sqM)
[2020-11-18] MEDS: amLODIPine 5 MG TAB PO SCH (07:45)
[2020-11-18] MEDS: carvediloL 3.125 MG TAB PO SCH ×2 (07:45→17:22)
[2020-11-18] MEDS: CALCIUM ACETATE 667 MG TAB PO SCH ×3 (07:45→17:22)
--- NOTE | 2020-11-18 09:32 | P.PN ---
Subjective Patient is seen in follow-up for end-stage renal disease. He is maintained on hemodialysis on Sunday schedule. Permacath removed November 16 due to bacteremia. Has good urine output. No active complaints. Potassium level stable this morning at 4.6. Vital signs are stable. General: The patient appeared well nourished and normally developed. HEENT: Head exam is unremarkable. Neck is without jugular venous distension. LUNGS: Breath sounds decreased. HEART: Rate and Rhythm are regular. ABDOMEN: Soft, no distention. EXTREMITITES: No edema. Objective - Vital Signs Vital signs: Vital Signs Temp 98.3 F 11/18/20 04:59 Pulse 67 11/18/20 04:59 Resp 16 11/18/20 04:59 BP 168/84 11/18/20 04:59 Pulse Ox 99 11/18/20 04:59 Intake & Output 11/17/20 11/18/20 11/18/20 18:59 06:59 18:59 Intake Total 50 590 Balance 50 590 Intake: Intake, IV Titration 50 Amount ceFAZolin 2 gm In Sodium 50 Chloride 0.9% 50 ml @ 100 mls/hr IVPB Q12H [facility] Rx# :[id number] Oral 590 Other: Voiding Method Toilet Toilet # Voids 2 - Labs CBC & Chem 7: 11/16/20 05:50 11/18/20 06:31 Labs: Abnormal Lab Results - Last 24 Hours (Table) 11/18/20 Range/Units 06:31 BUN 71 H (9-20) mg/dL Creatinine 16.94 H* (0.66-1.25) mg/dL Microbiology - Last 24 Hours (Table) 11/16/20 05:50 Blood Culture - Preliminary Blood No Growth after 48 hours 11/15/20 17:15 Blood Culture Gram Stain - Preliminary Blood Blood Culture - Preliminary Staphylococcus aureus Assessment and Plan Plan: Assessment: 1. End-stage renal disease maintained on hemodialysis on Sunday schedule via permacath. 2. Staph aureus bacteremia secondary to permacath infection. Permacath removed November 16. Infectious disease following. 3. Anemia of chronic kidney disease. On Aranesp. 4. Chronic kidney disease mineral bone disease maintained on PhosLo. 5. Hypertension with chronic kidney disease. Plan: Last hemodialysis on November 16. Await infectious disease clearance for new permacath insertion. Monitor vancomycin levels. Target level near 15. Continue to check labs daily. Add hydralazine.
[2020-11-18] MEDS: hydrALAZINE HCL 25 MG TAB PO SCH ×3 (10:59→22:33)
--- NOTE | 2020-11-18 17:45 | PN ---
PROGRESS NOTE DATE OF SERVICE: 11/18/2020 REASON FOR FOLLOWUP: MSSA bacteremia secondary to PermCath infection. INTERVAL HISTORY: The patient is afebrile. The patient is breathing comfortably. Patient denies having any chest pain, shortness of breathing, abdominal pain or diarrhea. PHYSICAL EXAMINATION: Blood pressure 156/60 with a pulse of 54, temperature 98.2. He is 99% on room air. General description is a middle-aged male lying in bed in no distress. Respiratory system: Unlabored breathing, clear to auscultation anteriorly. Heart S1, S2. Regular rate and rhythm. Abdomen is soft, no tenderness. LABS: Blood culture obtained on November 16 has been negative so far. DIAGNOSTIC IMPRESSION AND PLAN: Patient with MSSA bacteremia secondary to PermCath which has been discontinued. Blood cultures from November 16 has been negative. If they remain to be negative by tomorrow, he may be able to get another PermCath. Continue supportive care. MMODL / IJN: [id number] /
--- NOTE | 2020-11-18 18:58 | P.PN ---
Progress Note - Text 25-year-old white male known to me from the past we removed dialysis catheter yesterday . Waiting for infectious disease clearance for placement of the dialysis catheter
[2020-11-19 06:41] LABS: Anion Gap 15 mmol/L; Blood Urea Nitrogen 76 mg/dL (9-20); Calcium 9.1 mg/dL (8.4-10.2); Carbon Dioxide 22 mmol/L (22-30); Chloride 103 mmol/L (98-107); Glucose 93 mg/dL (74-99); Potassium 5.1 mmol/L (3.5-5.1); Sodium 140 mmol/L (137-145)
[2020-11-19 06:48] LABS: African American GFR (CKD) 3 (>60 ml/min/1.73 sqM); Non-African American GFR(CKD) 3 (>60 ml/min/1.73 sqM)
--- NOTE | 2020-11-19 06:49 | PN ---
PROGRESS NOTE A 25-year-old white male with a port infection and he is upset he has not had a new port placement. We will get consult with Dr. Medina to put a new port in him. Repeat blood cultures are negative. Remains on broad-spectrum antibiotics and will need a new port for dialysis prior to going home. Continue with antibiotics in the meantime. Cardiovascular S1-S2. GI soft. Hematology negative Homans. Psych fair mood and affect. PLAN: Continue current antibiotics until review. If blood cultures are negative, get a new port in place for dialysis. Possible discharge home when cleared by Infectious Disease. MMODL / IJN: [id number] /
[2020-11-19] MEDS ORDERED: SODIUM POLYSTYRENE SULFONATE 15 GM/60 ML BOTTLE PO ONE (09:00)
[2020-11-19] MEDS: carvediloL 3.125 MG TAB PO SCH ×2 (09:29→17:58)
[2020-11-19] MEDS: FUROSEMIDE 80 MG TAB PO SCH ×2 (09:29→14:54)
[2020-11-19] MEDS: hydrALAZINE HCL 25 MG TAB PO SCH ×2 (09:29→17:58)
[2020-11-19] MEDS: amLODIPine 5 MG TAB PO SCH (09:29)
[2020-11-19] MEDS: CALCIUM ACETATE 667 MG TAB PO SCH ×3 (09:30→17:58)
--- NOTE | 2020-11-19 11:38 | P.PN ---
Subjective Patient is seen in follow-up for end-stage renal disease. He is maintained on hemodialysis on Sunday schedule. Permacath removed November 16 due to bacteremia. Last hemodialysis November 16. Has good urine output. No active complaints. Vital signs are stable. General: The patient appeared well nourished and normally developed. HEENT: Head exam is unremarkable. Neck is without jugular venous distension. LUNGS: Breath sounds decreased. HEART: Rate and Rhythm are regular. ABDOMEN: Soft, no distention. EXTREMITITES: No edema. Objective - Vital Signs Vital signs: Vital Signs Temp 97.8 F 11/19/20 04:55 Pulse 66 11/19/20 08:00 Resp 16 11/19/20 08:00 BP 148/85 11/19/20 04:55 Pulse Ox 100 11/19/20 04:55 Intake & Output 11/18/20 11/19/20 11/19/20 18:59 06:59 18:59 Intake Total 50 Balance 50 Intake: Intake, IV Titration 50 Amount ceFAZolin 2 gm In Sodium 50 Chloride 0.9% 50 ml @ 100 mls/hr IVPB Q12H [facility] Rx# :[id number] Other: Voiding Method Toilet Toilet Toilet # Voids 2 - Labs CBC & Chem 7: 11/16/20 05:50 11/19/20 06:04 Labs: Abnormal Lab Results - Last 24 Hours (Table) 11/19/20 Range/Units 06:04 BUN 76 H (9-20) mg/dL Creatinine 18.72 H* (0.66-1.25) mg/dL Microbiology - Last 24 Hours (Table) 11/16/20 05:50 Blood Culture - Preliminary Blood No Growth after 72 hours 11/15/20 17:15 Blood Culture Gram Stain - Final Blood Blood Culture - Final Staphylococcus aureus 11/16/20 16:15 Catheter Tip Culture - Preliminary Catheter Tip Presumptive Staph aureus Assessment and Plan Plan: Assessment: 1. End-stage renal disease maintained on hemodialysis on Sunday schedule via permacath. 2. Staph aureus bacteremia secondary to permacath infection. Permacath removed November 16. Infectious disease following. 3. Anemia of chronic kidney disease. On Aranesp. 4. Chronic kidney disease mineral bone disease maintained on PhosLo. 5. Hypertension with chronic kidney disease. Stable. Plan: Last hemodialysis on November 16. Await infectious disease clearance for new permacath insertion -repeat blood cultures negative so far. Monitor vancomycin levels. Target level near 15. Plan for hemodialysis today if catheter inserted on time. Otherwise will do a treatment tomorrow.
[2020-11-19] MEDS ORDERED: IV FLUID CONTINUATION 300 ML IV ONE (12:50)
[2020-11-19] MEDS ORDERED: HEPARIN SODIUM 1,000 UN/ML (10ML VL) ONE ×2 (12:50→13:21)
[2020-11-19] MEDS ORDERED: LIDOCAINE 1% INJ 10MG/ML (20 ML MDV) ONE ×2 (12:50→13:40)
[2020-11-19] MEDS ORDERED: fentaNYL (PF) 50 MCG/ML 2 ML AMP ONE (12:56)
[2020-11-19] MEDS: MIDAZOLAM 2 MG/2 ML VIAL IV ONE ×2 (13:06→13:13)
[2020-11-19] MEDS: fentaNYL (PF) 50 MCG/ML 2 ML AMP IV ONE ×2 (13:07→13:22)
[2020-11-19] MEDS ORDERED: LIDOCAINE 1% INJ 10MG/ML (20 ML MDV) SQ ONE ×2 (13:08)
[2020-11-19] MEDS ORDERED: HYDROmorphone 0.5 MG/0.5 ML SYRINGE IVP ONE (13:44)
--- NOTE | 2020-11-19 14:15 | PN ---
PROGRESS NOTE DATE OF SERVICE: 11/19/2020 REASON FOR FOLLOWUP: MSSA bacteremia secondary to PermCath infection. INTERVAL HISTORY: The patient is afebrile. The patient is feeling better. Breathing comfortably. No chest pain, shortness of breath or cough. No abdominal pain or diarrhea. PHYSICAL EXAMINATION: Blood pressure 139/75, pulse of 59, temperature 97.9. He is 100% on room air. General description is a young male lying in bed in no distress. Respiratory system: Unlabored breathing, clear to auscultation anteriorly. Heart S1, S2. Regular rate and rhythm. Abdomen soft, no tenderness. LABS: BUN of 76, creatinine 18.72. Blood culture done on November 16 has been negative so far. DIAGNOSTIC IMPRESSION AND PLAN: Patient with MSSA bacteremia secondary to PermCath infection, discontinued. The patient on cefazolin. He should be cleared to go for PermCath placement today. Antibiotic can be switched over to vancomycin, pharmacy to dose to the dialysis for 2 weeks to avoid placing a PICC line or outpatient IV cefazolin therapy. MMODL / IJN: [id number] /
--- NOTE | 2020-11-19 14:53 | XR ---
EXAMINATION TYPE: XR chest 1V confirm line [facility] DATE OF EXAM: 11/19/2020 COMPARISON: Chest x-ray 09/17/2020 HISTORY: Status post dialysis catheter placement TECHNIQUE: Single frontal view of the chest is obtained. FINDINGS: Right jugular central venous dialysis catheter is noted. There is no evident pneumothorax o r pleural effusion. Cardiac mediastinal silhouette is stable. There are overlying artifacts. IMPRESSION: No evident complication status post dialysis catheter placement
[2020-11-19 15:32] LABS: Glucose,Whole Blood 140 mg/dL (75-99)
[2020-11-19] MEDS ORDERED: VANCOMYCIN IV PER PHARMACY 1 EACH MISC MISCELLANE PRN (16:30)
[2020-11-19 19:54] VITALS: BP 129/73; PULSE 68; RESP 18; TEMP 97.8
[2020-11-19] MEDS ORDERED: VANCOMYCIN 1,250 MG in SODIUM CHLORIDE 0.9% 250 ML IVPB ONE (20:00)
--- NOTE | 2020-11-23 06:40 | CDI ---
Documentation Clarification Form Date: 11/23/20 From: Olive Storm Admit Date: 11/15/2020 11:22:00 AM Patient Name: Armond Busby Visit Number: [id number] Discharge Date: 11/19/2020 08:10:00 PM ATTENTION: The Clinical Documentation Specialists (CDI) and [facility] Coding Staff appreciate your assistance in clarifying documentation. Please respond to the clarification below the line at the bottom and electronically sign. The CDI & [facility] Coding staff will review the response and follow-up if needed. Please note: Queries are made part of the Legal Health Record. If you have any questions, please contact the author of this message via ITS. Dr. Cem Bhatt, There is documentation of bacteremia in Dr. Mari's consult and multiple progress notes. Bacteremia is considered a lab finding. Additional clarification regarding bacteremia is requested. Patient history/risk factors: HTN w ESRD, anemia in CKD Clinical Indicators: Presents with fever, nausea, diarrhea and dehydration . He developed on Sunday swelling on the right side of his chest and swelling of the left side of his face. Then on Sunday having some chest tightness more on the right side and swelling around his port site. Temp: 101.2/101.8 WBC: 5.0 Left Shift: 76 Blood Culture: Staphylococcus aureus Infectious Disease Consult: Concern for possible PermCath infection, no cellulitis. Treatment: IV Cefepime, hemodialyis catheter insertion Please provide additional clarification regarding the etiology/cause and/or clinical significance of the bacteremia: [ ] Bacteremia is related to sepsis [ ] Bacteremia is due to infectious process, please specify: [ ] Bacteremia is not clinically significant [ ] Other, please specify [ ] Unable to determine MTDD
--- NOTE | 2020-11-23 14:03 | PN ---
PROGRESS NOTE ADDENDUM: DISCHARGE DIAGNOSIS: Staph aureus bacteremia related to sepsis from dialysis catheter infection. MMODL / IJN: [id number] /
--- NOTE | 2020-12-03 23:03 | OP ---
OPERATIVE REPORT PREOPERATIVE DIAGNOSIS: Acute on chronic renal failure. POSTOPERATIVE DIAGNOSIS: Acute on chronic renal failure. PROCEDURE: Dialysis catheter placement, right jugular approach. This patient brought to the quality assurance qa lab analyst. Right side of the neck and chest was prepped and draped in usual sterile manner. Ultrasound-guided micropuncture into the right jugular vein, micropuncture guidewire was passed and a 4 [place]ian dilator was on top of the guidewire. Then we passed a regular guidewire which was parked at the inferior vena cava. A tunnel was created. Through the tunnel we brought the dialysis catheter. Then we passed a dilator and sheath on top of the guidewire. Through the sheath we introduced the dialysis catheter. Tip of the catheter in superior vena cava at the junction. Flushed with heparin and saline and hep-locked. Secured with 3-0 nylon. Dressing applied. Patient tolerated the procedure well. EDMUNDO / TORITO: [id number] /
== END 2020-11-19 20:10 | disposition home or self-care (01) | DRG 314 ==
LOC: EC 10:21 → 4SSUR 11:22 → 5NMEDONC 18:04
PROVIDERS: ADMIT Family Medicine; ATTEND Family Medicine
PROC: 5A1D70Z Performance of Urinary Filtration, Intermittent, Less than 6 Hours Per Day (ICD-10-PCS; 2020-11-16)
PROC: 02HV33Z Insertion of Infusion Device into Superior Vena Cava, Percutaneous Approach (ICD-10-PCS; principal; 2020-11-19 14:45)
PROC: 0JH63XZ Insertion of Tunneled Vascular Access Device into Chest Subcutaneous Tissue and Fascia, Percutaneous Approach (ICD-10-PCS; principal; 2020-11-19 14:45)
DX: T80.211A Bloodstream infection due to central venous catheter, initial encounter (principal); N18.6 End stage renal disease; A41.01 Sepsis due to Methicillin susceptible Staphylococcus aureus; I12.0 Hypertensive chronic kidney disease with stage 5 chronic kidney disease or end stage renal disease; N17.9 Acute kidney failure, unspecified; D63.1 Anemia in chronic kidney disease; E83.9 Disorder of mineral metabolism, unspecified; Z99.2 Dependence on renal dialysis; Z20.822 Contact with and (suspected) exposure to COVID-19; E86.0 Dehydration; Z79.899 Other long term (current) drug therapy; Z86.16 Personal history of COVID-19; Y84.1 Kidney dialysis as the cause of abnormal reaction of the patient, or of later complication, without mention of misadventure at the time of the procedure; Z88.8 Allergy status to other drugs, medicaments and biological substances; Z83.3 Family history of diabetes mellitus; Z82.5 Family history of asthma and other chronic lower respiratory diseases; Z82.49 Family history of ischemic heart disease and other diseases of the circulatory system; Z84.1 Family history of disorders of kidney and ureter
CPT/HCPCS: 36558; 76937; 77001; 80048; 80053; 80202; 81001; 84132; 84145; 84484; 85025; 86140; 87040; 87070; 87077; 87186; 87635; 90935; 99285

== ENCOUNTER 2021-03-23 05:57 | Day surgery (SDC) | payer MEDICARE, OTHER ==
[2021-03-18 14:57] VITALS: BMI 24.3
[~2021-03-23 05:57] MED LIST: DEXAMETHASONE SOD PHOSPHATE 4 MG/ML 1 ML VIAL IV ONE; LACTATED RINGERS 1,000 ML IV SCH; LIDOCAINE 1% (10MG/ML) FOR IV START INTRADERMA PRN; MIDAZOLAM 2 MG/2 ML VIAL IV PRN; ONDANSETRON 4 MG/2 ML VIAL IVP ONE
[2021-03-23 06:52] LABS: Anisocytosis Slight; HCT 36.8 % (39.0-53.0); HGB 12.4 gm/dL (13.0-17.5); MCH 29.7 pg (25.0-35.0); MCHC 33.6 g/dL (31.0-37.0); MCV 88.6 fL (80.0-100.0); Mean Platelet Volume 7.6; Platelet Count 230 k/uL (150-450); RBC 4.15 m/uL (4.30-5.90); RDW 18.4 % (11.5-15.5); WBC 6.1 k/uL (3.8-10.6)
[2021-03-23 07:00] LABS: Potassium 4.7 mmol/L (3.5-5.1)
[2021-03-23] MEDS ORDERED: HYDROmorphone 0.5 MG/0.5 ML SYRINGE IVP PRN (07:00)
[2021-03-23] MEDS ORDERED: ROPIVACAINE 5 MG/ML 30 ML VIAL ONE (07:20)
[2021-03-23] MEDS ORDERED: fentaNYL (PF) 50 MCG/ML 2 ML AMP ONE (07:20)
[2021-03-23] MEDS ORDERED: LIDOCAINE 1% INJ 10MG/ML (20 ML MDV) ONE (07:20)
[2021-03-23] MEDS ORDERED: PROPOFOL 10 MG/ML 20 ML VIAL IV ONE (07:20)
[2021-03-23] MEDS ORDERED: MIDAZOLAM 2 MG/2 ML VIAL ONE (07:20)
[2021-03-23] MEDS ORDERED: DEXAMETHASONE SOD PHOSPHATE 4 MG/ML 1 ML VIAL ONE (07:20)
[2021-03-23] MEDS ORDERED: LIDOCAINE 1% INJ 10MG/ML (20 ML MDV) SQ ONE (07:46)
--- NOTE | 2021-03-23 07:50 | P.ANPRN ---
Procedure Note - Anesthesia - Nerve Block Performed Left Axillary Single Time Out Performed: Yes Date of Procedure: 03/23/21 Procedure Start Time: 06:53 Procedure Stop Time: 07:04 Location of Patient: PreOp Indication: Acute Post-Operative Pain, Requested by Surgeon Sedation Type: Sedate with meaningful contact maintained Preparation: Sterile Prep, Sterile Dressing Position: Sitting Catheter: None Needle Types: Facet Needle Gauge: 21 Ultrasound used to visualize needle placement: Yes Ultrasound used to observe medication spread: Yes Injectate: 0.5% Ropivacaine (see comment for volume) (30 ml + decadron 4 mg) Blood Aspirated: No Pain Paresthesia on Injection Noted: No Resistance on Injection: Normal Image Stored and Saved: Yes Events: Uneventful and Well Tolerated
[2021-03-23] MEDS ORDERED: ceFAZolin 2,000 MG in SODIUM CHLORIDE 0.9% 500 ML IRRIGATION ONE (07:56)
[2021-03-23] MEDS ORDERED: HEPARIN SODIUM,PORCINE 2,000 UNIT in SODIUM CHLORIDE 0.9% 500 ML 500 ML IRRIGATION ONE (07:56)
[2021-03-23 09:10] VITALS: TEMP 97.2
[2021-03-23 09:46] VITALS: RESP 16
[2021-03-23 09:59] VITALS: BP 133/73; PULSE 75
--- NOTE | 2021-03-23 11:25 | P.OP ---
Date of Procedure: 03/23/21 Preoperative Diagnosis: End-stage renal disease Postoperative Diagnosis: Same Procedure(s) Performed: Left radiocephalic fistula creation Anesthesia: MAC, regional Surgeon: Albert Fraire Estimated Blood Loss (ml): 5 Pathology: none sent Condition: stable Disposition: PACU Indications for Procedure: 25-year-old gentleman with history of end-stage renal disease on hemodialysis via right-sided chest catheter was S today for creation of left upper extremity radiocephalic fistula. He had ultrasounds that demonstrated good size vein at his wrist and we will start with a Mitchell fistula. Description of Procedure: After written and informed consent was obtained from the patient the patient was brought to the operative suite and laid in a supine position. The left arm was prepped and draped in the usual sterile fashion after appropriate anesthesia was performed per the anesthesiologist. Utilizing ultrasound the cephalic vein was visualized and marked and shown to be good size. A small vertical incision was then created with a 15 blade scalpel just proximal to the wrist and dissection was carried down to the radial artery which was dissected free in a circumferential manner. Proximal distal control was then obtained with vessel loops. Attention was then placed back to the cephalic vein which was located and dissected free in a circumferential manner distally to the wrist. At the wrist it was ligated with silk suture. Further dissection was carried around the vein and the vein was brought over to the radial artery. Serial dilation was then performed on the vein and good backbleeding was noted. Patient was administered 3000 units of heparin and the radial artery was clamped at the proximal and distal aspect. Utilizing 11 blade scalpel and arteriotomy was created and extended with Pott Morrison scissors. There was good brisk backbleeding noted from the radial artery and pulsatile blood flow visualized from the proximal aspect. The vein was then spatulated and an end-to-side anastomosis was created with a 7-0 Prolene suture. Prior to last sutures being placed the control was released from the vein revealing good backbleeding and distal control on the radial artery was released revealing good back flow. The proximal control was then released and good pulsatile blood flow was visualized in the fistula and final sutures were secured. The area was copiously irrigated with antibiotic solution. Hemostasis was assured. The vessels were then interrogated with Doppler which demonstrated good multiphasic signal distal to the anastomosis as well as positive bruit within the vein consistent with good fistula creation. Under ultrasound there was pulsatile flow noted in the cephalic vein. The incision was then closed in a multilayer fashion. The skin was cleansed and dressings were placed. Patient does procedure well and was sent to PACU for recovery.
== END 2021-03-23 10:21 | disposition home or self-care (01) ==
LOC: OR 05:57
PROVIDERS: ATTEND Surgery
DX: N18.6 End stage renal disease (principal); Z99.2 Dependence on renal dialysis
CPT/HCPCS: 36821; 64415; 76942; 80051; 82565; 84520; 85027; J2250; J1644; J1100; J0690 ×2; J2405; J2001; J3010; J2795; J2704

== ENCOUNTER 2021-10-17 16:32 | Emergency (ER) | payer OTHER ==
[2021-10-17 16:44] VITALS: TEMP 98.1
[2021-10-17 17:41] LABS: Anisocytosis Slight; Basophils # (A) 0.1 k/uL (0-0.2); Basophils % (A) 0 %; Eosinophils # (A) 0.2 k/uL (0-0.7); Eosinophils % (A) 1 %; HCT 27.9 % (39.0-53.0); HGB 9.2 gm/dL (13.0-17.5); Lymphocytes # (A) 0.6 k/uL (1.0-4.8); Lymphocytes % (A) 4 %; MCH 31.9 pg (25.0-35.0); MCV 96.6 fL (80.0-100.0); Mean Platelet Volume 8.2; Monocytes # (A) 0.5 k/uL (0-1.0); Monocytes % (A) 3 %; Neutrophils # (A) 13.6 k/uL (1.3-7.7); Neutrophils % (A) 89 %; Platelet Count 191 k/uL (150-450); RBC 2.89 m/uL (4.30-5.90); RDW 16.4 % (11.5-15.5); WBC 15.2 k/uL (3.8-10.6)
[2021-10-17 17:54] LABS: Albumin 2.9 g/dL (3.5-5.0); Calcium 8.8 mg/dL (8.4-10.2); Total Bilirubin 1.1 mg/dL (0.2-1.3)
[2021-10-17] MEDS ORDERED: CYCLOBENZAPRINE 10 MG TAB PO STA (20:49)
[2021-10-17] MEDS ORDERED: KETOROLAC 15 MG/ML 1 ML VIAL IM STA (20:50)
[2021-10-17] MEDS ORDERED: HYDROcodone/APAP 5-325MG 1 EACH TAB PO STA (20:50)
--- NOTE | 2021-10-17 21:53 | ED ---
General Adult HPI - General Chief complaint: Abdominal Pain Stated complaint: Pain, Dialysis Time Seen by Provider: 10/17/21 20:30 Source: patient Mode of arrival: ambulatory Limitations: no limitations - History of Present Illness Initial comments: Patient is a 26-year-old male with past medical history remarkable for ESRD on hemodialysis, hypertension, chronic body aches and pains including spasms presents emergency Department complaining of generalized pain. Chief complaint states abdominal pain but patient states that this abdominal pain with nausea and vomiting occurred 10 days ago. Currently is complaining of recurrent joint pain including right shoulder, bilateral knees. States he does get this occasionally. Did receive dialysis but was brought here after for further evaluation. Currently denies chest pain, shortness of breath, abdominal pain, nausea, vomiting. Nurse's a dry tongue. Denies any fevers, chills, sick contacts. His no other acute complaints at this time. I evaluated the patient after he was placed in a room. Workup was already started. - Related Data Home Medications Medication Instructions Recorded Confirmed Auryxia 210mg 4 tab PO AC-TID 11/15/20 03/23/21 Calcium Acetate [PhosLo] 667 mg PO AC-TID 11/15/20 03/23/21 Calcium Acetate [PhosLo] 667 mg PO DAILY PRN 11/15/20 03/23/21 Renaplex-D 1 tab PO DAILY 11/15/20 03/23/21 carvediloL [Coreg] 3.125 mg PO AC-BID 11/15/20 03/23/21 Torsemide [Demadex] 20 mg PO BID 02/24/21 03/23/21 Previous Rx's Medication Instructions Recorded Ergocalciferol [Vitamin D2 (1250 1,250 mcg PO Q72H #30 capsule 09/17/20 Mcg = 84871 Iu)] amLODIPine [Norvasc] 5 mg PO DAILY #30 tab 09/17/20 Darbepoetin Luis E [Aranesp] 40 mcg SQ Q7D syringe 11/19/20 hydrALAZINE HCL [Apresoline] 25 mg PO TID 30 Days #90 tab 11/19/20 Cyclobenzaprine [Flexeril] 10 mg PO TID PRN 7 Days #21 tab 10/17/21 Allergies Allergy/AdvReac Type Severity Reaction Status Date / Time chlorhexidine Allergy Itching Verified 03/23/21 06:21 Review of Systems ROS Statement: Those systems with pertinent positive or pertinent negative responses have been documented in the HPI. Review of Systems: CONST: Denies fever EYES: Denies blurry vision ENT: Denies nasal congestion C/V: Denies Chest pain RESP: Denies shortness of breath GI: Denies abdominal pain : Denies dysuria SKIN: Denies rash. MSK: Endorses joint pain NEURO: Denies headache ROS Other: All systems not noted in ROS Statement are negative. Past Medical History Past Medical History: Dialysis, Hypertension Additional Past Medical History / Comment(s): Covid 19 03/2020, past protein in urine, occasional nose bleeds dialysis M-W-F. port rt chest History of Any Multi-Drug Resistant Organisms: None Reported Past Surgical History: No Surgical Hx Reported Additional Past Surgical History / Comment(s): chest port x2. tooth extraction Past Anesthesia/Blood Transfusion Reactions: Previous Problems w/ Anesthesia Additional Past Anesthesia/Blood Transfusion Reaction / Comment(s): 1st port no issue, 2nd port replacement "felt everything Past Psychological History: Anxiety Smoking Status: Never smoker Past Alcohol Use History: None Reported Past Drug Use History: Marijuana - Past Family History Mother History Unknown: Yes Family Medical History: Diabetes Mellitus Additional Family Medical History / Comment(s): heart mummur. Grandmother had COPD, A fib and CHF. Father History Unknown: Yes Additional Family Medical History / Comment(s): Grandfather had dialysis for a couple of years. General Exam - General Exam Comments Initial Comments: General: Appears in no acute distress. HEAD: Normal with no signs of head trauma. EYES: PERRLA, EOMI, conjunctiva normal, no discharge. ENT: Hearing grossly intact, normal oropharynx. RESPIRATORY: Clear breath sounds bilaterally. No wheezes, rales, or rhonchi. C/V: Regular rate and rhythm. S1 and S2 auscultated, no edema, peripheral pulses 2+ and intact throughout. Dialysis access is right chest permacath. ABD: Abd is soft, nontender, nondistended EXT: Normal range of motion, no obvious deformity SKIN: No rashes or lesions observed on exposed skin. NEURO: Alert and oriented 4. No focal sensory strength deficits. Limitations: no limitations Course Vital Signs 10/17/21 16:42 Temperature 98.1 F Pulse Rate 118 H Respiratory 18 Rate Blood Pressure 101/54 O2 Sat by Pulse 98 Oximetry Procedures - [place] Protocol (Time Out) Nurse: Giovanna Alvarez Medical Decision Making - Medical Decision Making Based on the patient's presentation and physical exam, patient presents from dialysis with symptoms of chronic pain. He states he feels slightly dehydrated. Denies any other acute complaints at this time. Laboratory studies were already obtained in triage were remarkable for elevated BUN/creatinine the setting of ESRD on hemodialysis. Remainder the labs are relatively unremarkable. Patient does have a slightly elevated white count which is not concerning at this time. Could be reactive to his nausea and vomiting that he had earlier. Patient has a chronic anemia as well. EKG shows no signs of acute ischemia and only chronic changes. I discussed these findings with the patient. He is relatively asymptomatic at this time. He states he is on Robaxin typically for his muscle aches, and I did offer him Flexeril states the Robaxin makes him feel weird. Accepted. We'll reevaluate the patient. Following analgesia, patient feels improved. He would like to go home. I believe this is reasonable. Strict return precautions were discussed. Patient will be discharged home at this time. I will provide the patient with a prescription for Flexeril. I instructed the patient to follow up with their PCP in the next 3 days. I explained that the patient should return to the emergency department if they experience any worsening symptoms. Strict return precautions were discussed with the patient. The patient expressed understanding of these instructions. I answered all questions that the patient had. The patient was discharged home in good condition with their prescriptions and follow up information. - Lab Data Result diagrams: 10/17/21 17:32 10/17/21 17:32 Lab Results 10/17/21 10/17/21 Range/Units 17:32 17:32 WBC 15.2 H (3.8-10.6) k/uL RBC 2.89 L (4.30-5.90) m/uL Hgb 9.2 L (13.0-17.5) gm/dL Hct 27.9 L (39.0-53.0) % MCV 96.6 (80.0-100.0) fL MCH 31.9 (25.0-35.0) pg MCHC 33.0 (31.0-37.0) g/dL RDW 16.4 H (11.5-15.5) % Plt Count 191 (150-450) k/uL MPV 8.2 Neutrophils % 89 % Lymphocytes % 4 % Monocytes % 3 % Eosinophils % 1 % Basophils % 0 % Neutrophils # 13.6 H (1.3-7.7) k/uL Lymphocytes # 0.6 L (1.0-4.8) k/uL Monocytes # 0.5 (0-1.0) k/uL Eosinophils # 0.2 (0-0.7) k/uL Basophils # 0.1 (0-0.2) k/uL Anisocytosis Slight Sodium 130 L (137-145) mmol/L Potassium 4.0 (3.5-5.1) mmol/L Chloride 91 L (98-107) mmol/L Carbon Dioxide 29 (22-30) mmol/L Anion Gap 10 mmol/L BUN 53 H (9-20) mg/dL Creatinine 7.38 H* (0.66-1.25) mg/dL Est GFR (CKD-EPI)AfAm 11 (>60 ml/min/1.73 sqM) Est GFR (CKD-EPI)NonAf 9 (>60 ml/min/1.73 sqM) Glucose 94 (74-99) mg/dL Calcium 8.8 (8.4-10.2) mg/dL Total Bilirubin 1.1 (0.2-1.3) mg/dL AST 43 (17-59) U/L ALT 39 (4-49) U/L Alkaline Phosphatase 185 H (38-126) U/L Total Protein 6.0 L (6.3-8.2) g/dL Albumin 2.9 L (3.5-5.0) g/dL Amylase 34 (30-110) U/L Lipase 37 (23-300) U/L - EKG Data -: EKG Interpreted by Me EKG Comments: 12-lead Electrocardiogram Interpretation Note EKG was reviewed and interpreted by myself. 12-lead ECG performed at 1649 is interpreted by me as revealing mild sinus tachycardia at a rate of 108 beats per minute. [place] is normal. I do not right axis deviation. ND interval is 140 ms, QRS durations 154 ms, QTc is 441 ms. EKG shows a right bundle-branch block which is chronic.. There were no acute ST or T wave abnormalities to suggest myocardial ischemia or injury. R wave progression across the precordium was satisfactory. By my interpretation this EKG is non-diagnostic for acute ischemia. No change when compared to prior EKGs in our system. Disposition Clinical Impression: Generalized pain Disposition: HOME SELF-CARE Condition: Good Instructions (If sedation given, give patient instructions): Muscle Cramp (ED) Prescriptions: Cyclobenzaprine [Flexeril] 10 mg PO TID PRN 7 Days #21 tab PRN Reason: Pain Is patient prescribed a controlled substance at d/c from ED?: No Referrals: None,Stated [Primary Care Provider] - 1-2 days Time of Disposition: 21:45
[2021-10-17 22:59] VITALS: BP 145/64; PULSE 101; RESP 16
== END 2021-10-17 22:59 | disposition home or self-care (01) ==
LOC: EC 16:32
DX: R10.84 Generalized abdominal pain (principal); Z88.8 Allergy status to other drugs, medicaments and biological substances
CPT/HCPCS: 36415; 80053; 82150; 83690; 85025; 99284; 96372; J1885

== ENCOUNTER 2021-10-18 18:30 | Inpatient (IN) | payer MEDICARE, OTHER ==
[2021-10-18] MEDS ORDERED: SODIUM CHLORIDE 0.9% 1,000 ML IV STA ×2 (21:46→23:04)
--- NOTE | 2021-10-18 21:49 | ED ---
Recheck HPI - General Chief Complaint: Recheck/Abnormal Lab/Rx Stated Complaint: Abn. Labs, Dr Neves sent in Time Seen by Provider: 10/18/21 20:28 Source: patient, RN notes reviewed, old records reviewed Mode of arrival: ambulatory Limitations: no limitations - History of Present Illness Initial Comments: This is a 26-year-old male for recheck of abnormal lab values lab values at this time abnormal exclude kidney function he did have dialysis today but was unable to finish dialysis because he was very unsteady weak and shaky. Patient has no nausea vomiting diarrhea no other complaints no recent change in medications MD Complaint: abnormal lab (RenalFail) -: hour(s) Returns Today for: Called Because of Abnormal Lab/Test, persistent/worsening pain related to initial visit Symptoms Since Prior Visit: worsening pain Context: called for abnormal lab result Associated Symptoms: none Treatments Prior to Arrival: other medications - Related Data Home Medications Medication Instructions Recorded Confirmed Auryxia 210mg 840 tab PO TID-W/MEALS 11/15/20 10/18/21 Calcium Acetate [PhosLo] 1,334 mg PO TID-W/MEALS 11/15/20 10/18/21 Calcium Acetate [PhosLo] 667 mg PO DAILY PRN 11/15/20 10/18/21 Renaplex-D 1 tab PO DAILY 11/15/20 10/18/21 carvediloL [Coreg] 3.125 mg PO BID-W/MEALS 11/15/20 10/18/21 Torsemide [Demadex] 40 mg PO DAILY 02/24/21 10/18/21 Cyclobenzaprine [Flexeril] 5 mg PO TID PRN 10/18/21 10/18/21 Lidocaine-Prilocaine Cream [Emla 1 applic TOPICAL DIRECTED PRN 10/18/21 10/18/21 Cream 2.5%/2.5%] Sevelamer Carbonate 800 mg PO DAILY PRN 10/18/21 10/18/21 Sevelamer [Renvela] 1,600 mg PO TID-W/MEALS 10/18/21 10/18/21 Previous Rx's Medication Instructions Recorded amLODIPine [Norvasc] 5 mg PO DAILY #30 tab 09/17/20 Allergies Allergy/AdvReac Type Severity Reaction Status Date / Time chlorhexidine Allergy Itching Verified 10/18/21 22:07 Review of Systems ROS Statement: Those systems with pertinent positive or pertinent negative responses have been documented in the HPI. ROS Other: All systems not noted in ROS Statement are negative. Past Medical History Past Medical History: Dialysis, Hypertension Additional Past Medical History / Comment(s): Covid 19 03/2020, past protein in urine, occasional nose bleeds dialysis M-W-F. port rt chest History of Any Multi-Drug Resistant Organisms: None Reported Past Surgical History: No Surgical Hx Reported Additional Past Surgical History / Comment(s): chest port x2. tooth extraction Past Anesthesia/Blood Transfusion Reactions: Previous Problems w/ Anesthesia Additional Past Anesthesia/Blood Transfusion Reaction / Comment(s): 1st port no issue, 2nd port replacement "felt everything Past Psychological History: Anxiety Smoking Status: Never smoker Past Alcohol Use History: None Reported Past Drug Use History: Marijuana - Past Family History Mother History Unknown: Yes Family Medical History: Diabetes Mellitus Additional Family Medical History / Comment(s): heart mummur. Grandmother had COPD, A fib and CHF. Father History Unknown: Yes Additional Family Medical History / Comment(s): Grandfather had dialysis for a couple of years. General Exam Limitations: no limitations General appearance: alert, in no apparent distress, anxious Head exam: Present: atraumatic, normocephalic, normal inspection Eye exam: Present: normal appearance, PERRL, EOMI. Absent: scleral icterus, conjunctival injection, periorbital swelling ENT exam: Present: normal exam, mucous membranes moist Neck exam: Present: normal inspection. Absent: tenderness, meningismus, lymphadenopathy Respiratory exam: Present: normal lung sounds bilaterally. Absent: respiratory distress, wheezes, rales, rhonchi, stridor Cardiovascular Exam: Present: normal rhythm, tachycardia, normal heart sounds. Absent: systolic murmur, diastolic murmur, rubs, gallop, clicks GI/Abdominal exam: Present: soft, normal bowel sounds. Absent: distended, tenderness, guarding, rebound, rigid Extremities exam: Present: normal inspection, full ROM, normal capillary refill. Absent: tenderness, pedal edema, joint swelling, calf tenderness Back exam: Present: normal inspection Neurological exam: Present: alert, oriented X3, CN II-XII intact Psychiatric exam: Present: normal affect, normal mood Skin exam: Present: warm, dry, intact, normal color. Absent: rash Course Vital Signs 10/18/21 20:03 Temperature 97.8 F Pulse Rate 104 H Respiratory 18 Rate Blood Pressure 121/59 O2 Sat by Pulse 97 Oximetry - Reevaluation(s) Reevaluation #1: 10/18/21 23:10 Medical record is reviewed Reevaluation #2: 10/18/21 23:10 Patient informed us today for admission will see nephrology Reevaluation #3: 10/18/21 23:10 Patient informed results questions answered feeling improved - Consultations Consultation #1: spoke with Dr. Smith agrees to admit this patient Medical Decision Making - Medical Decision Making 26 male on dialysis who had dialysis today to the emergency department for evalu ation. Patient spoken with regarding abnormal lab values, patient feels shaky with generalized pain but no other specific complaints - Lab Data Result diagrams: 10/18/21 21:59 10/18/21 21:59 Lab Results 10/18/21 10/18/21 10/18/21 Range/Units 21:59 21:59 21:59 WBC 12.0 H (3.8-10.6) k/uL RBC 2.80 L (4.30-5.90) m/uL Hgb 8.9 L (13.0-17.5) gm/dL Hct 27.2 L (39.0-53.0) % MCV 97.2 (80.0-100.0) fL MCH 31.9 (25.0-35.0) pg MCHC 32.8 (31.0-37.0) g/dL RDW 16.7 H (11.5-15.5) % Plt Count 185 (150-450) k/uL MPV 8.3 Neutrophils % 87 % Lymphocytes % 5 % Monocytes % 3 % Eosinophils % 2 % Basophils % 0 % Neutrophils # 10.4 H (1.3-7.7) k/uL Lymphocytes # 0.6 L (1.0-4.8) k/uL Monocytes # 0.3 (0-1.0) k/uL Eosinophils # 0.2 (0-0.7) k/uL Basophils # 0.0 (0-0.2) k/uL Anisocytosis Slight Macrocytosis Slight PT 11.4 (9.0-12.0) sec INR 1.1 (<1.2) APTT 23.3 (22.0-30.0) sec Sodium 125 L (137-145) mmol/L Potassium 5.2 H (3.5-5.1) mmol/L Chloride 84 L (98-107) mmol/L Carbon Dioxide 28 (22-30) mmol/L Anion Gap 13 mmol/L BUN 78 H (9-20) mg/dL Creatinine 9.83 H* (0.66-1.25) mg/dL Est GFR (CKD-EPI)AfAm 7 (>60 ml/min/1.73 sqM) Est GFR (CKD-EPI)NonAf 6 (>60 ml/min/1.73 sqM) Glucose 83 (74-99) mg/dL Calcium 9.3 (8.4-10.2) mg/dL Phosphorus 6.0 H (2.5-4.5) mg/dL Magnesium 2.6 H (1.6-2.3) mg/dL Total Bilirubin 1.7 H (0.2-1.3) mg/dL AST 46 (17-59) U/L ALT 38 (4-49) U/L Alkaline Phosphatase 168 H (38-126) U/L Total Protein 6.0 L (6.3-8.2) g/dL Albumin 2.8 L (3.5-5.0) g/dL - EKG Data -: EKG Interpreted by Me (EKG is sinus tachycardia 101 DC 160 QRS 163 with a QTC of 424) Disposition Clinical Impression: Renal failure, Generalized pain, Hyperkalemia, Weakness Disposition: ADMITTED IP TO THIS [facility] Condition: Fair Is patient prescribed a controlled substance at d/c from ED?: No Referrals: Nick Daniels MD [Primary Care Provider] - 1-2 days
[2021-10-18] MEDS ORDERED: MORPHINE SULFATE 4 MG/ML SYRINGE IVP STA (22:00)
[2021-10-18] MEDS ORDERED: LORazepam 2 MG/ML INJ IV PRN (22:00)
[2021-10-18] MEDS ORDERED: LORazepam 2 MG/ML INJ IV STA (22:00)
[2021-10-18 22:23] LABS: Anisocytosis Slight; Basophils % (A) 0 %; Eosinophils # (A) 0.2 k/uL (0-0.7); Eosinophils % (A) 2 %; HCT 27.2 % (39.0-53.0); HGB 8.9 gm/dL (13.0-17.5); Lymphocytes # (A) 0.6 k/uL (1.0-4.8); Lymphocytes % (A) 5 %; MCH 31.9 pg (25.0-35.0); MCHC 32.8 g/dL (31.0-37.0); MCV 97.2 fL (80.0-100.0); Macrocytosis Slight; Mean Platelet Volume 8.3; Monocytes # (A) 0.3 k/uL (0-1.0); Monocytes % (A) 3 %; Neutrophils # (A) 10.4 k/uL (1.3-7.7); Neutrophils % (A) 87 %; Platelet Count 185 k/uL (150-450); RDW 16.7 % (11.5-15.5)
[2021-10-18 22:32] LABS: INR 1.1 (<1.2); Partial Thromboplastin Time 23.3 sec (22.0-30.0); Prothrombin Time 11.4 sec (9.0-12.0)
[2021-10-18 22:36] LABS: Albumin 2.8 g/dL (3.5-5.0); Calcium 9.3 mg/dL (8.4-10.2); Magnesium 2.6 mg/dL (1.6-2.3); Potassium 5.2 mmol/L (3.5-5.1); Total Bilirubin 1.7 mg/dL (0.2-1.3)
[2021-10-18] MEDS ORDERED: NALOXONE 0.4 MG/ML 1 ML VIAL IV PRN (23:04)
[2021-10-19] MEDS ORDERED: DEXTROSE 50% SYRINGE 50 ML IVP STA (03:01)
[2021-10-19] MEDS ORDERED: INSULIN REGULAR 100 UNIT/ML VIAL (IV) IV ONE (03:01)
[2021-10-19] MEDS ORDERED: SODIUM BICARB 8.4% 50 ML SYR (1 MEQ/ML) IV STA (03:01)
[2021-10-19] MEDS ORDERED: SODIUM CHLORIDE 0.9% 1,000 ML IV ONE ×2 (03:10→05:50)
[2021-10-19] MEDS ORDERED: LORazepam 2 MG/ML INJ IV STA ×2 (03:13→05:50)
[2021-10-19] MEDS ORDERED: LORazepam 2 MG/ML INJ IV PRN ×3 (03:16)
[2021-10-19] MEDS ORDERED: THIAMINE 100 MG/ML 2 ML VIAL IM STA (03:16)
[2021-10-19 04:09] LABS: Albumin 2.7 g/dL (3.5-5.0); Total Bilirubin 1.6 mg/dL (0.2-1.3); Total Protein 5.8 g/dL (6.3-8.2)
[2021-10-19 06:52] LABS: Anisocytosis Slight; Basophils # (A) 0.1 k/uL (0-0.2); Basophils % (A) 1 %; Eosinophils # (A) 0.2 k/uL (0-0.7); Eosinophils % (A) 1 %; HCT 27.7 % (39.0-53.0); Hypochromasia Slight; Lymphocytes # (A) 0.6 k/uL (1.0-4.8); Lymphocytes % (A) 5 %; MCH 31.9 pg (25.0-35.0); MCHC 32.6 g/dL (31.0-37.0); Macrocytosis Slight; Mean Platelet Volume 8.4; Monocytes # (A) 0.4 k/uL (0-1.0); Monocytes % (A) 3 %; Neutrophils # (A) 10.8 k/uL (1.3-7.7); Neutrophils % (A) 87 %; Platelet Count 170 k/uL (150-450); RBC 2.82 m/uL (4.30-5.90); RDW 16.3 % (11.5-15.5); WBC 12.4 k/uL (3.8-10.6)
[2021-10-19 07:03] LABS: ALT 37 U/L (4-49); AST 44 U/L (17-59); African American GFR (CKD) 7 (>60 ml/min/1.73 sqM); Albumin 2.8 g/dL (3.5-5.0); Alkaline Phosphatase 186 U/L (38-126); Anion Gap 17 mmol/L; Blood Urea Nitrogen 80 mg/dL (9-20); Calcium 9.1 mg/dL (8.4-10.2); Carbon Dioxide 23 mmol/L (22-30); Chloride 86 mmol/L (98-107); Glucose 76 mg/dL (74-99); Magnesium 2.8 mg/dL (1.6-2.3); Non-African American GFR(CKD) 6 (>60 ml/min/1.73 sqM); Phosphorus 5.6 mg/dL (2.5-4.5); Potassium 5.3 mmol/L (3.5-5.1); Sodium 126 mmol/L (137-145); Total Bilirubin 1.8 mg/dL (0.2-1.3)
--- NOTE | 2021-10-19 10:11 | P.NPCON ---
History of Present Illness - Reason for Consult end stage renal disease - History of Present Illness Reason for consultation: End-stage renal disease History of present illness: Patient is a 26-year-old male seen in consultation for end-stage renal disease. Patient was seen and examined in the emergency room. He is maintained on hemodialysis on Sunday schedule via permacath. Patient has AV fistula but is currently nonfunctional. Patient states he went to hemodialysis on Sunday but the treatment was cut short as he was not feeling well. He denies any vomiting or diarrhea. Patient is currently falling asleep as a speak to him. He denies chest pain or shortness of breath. He denies fever or chills. No cough. Blood pressure this morning was on the higher side. He's also noted to be tachycardic. He is on 2 L nasal cannula. General: Sleepy. HEENT: Head exam is unremarkable. LUNGS: Breath sounds decreased. HEART: Tachycardic. ABDOMEN: Soft, no distention. EXTREMITITES: No edema. Past Medical History Past Medical History: Dialysis, Hypertension Additional Past Medical History / Comment(s): Covid 19 03/2020, past protein in urine, occasional nose bleeds dialysis M-W-F. port rt chest History of Any Multi-Drug Resistant Organisms: None Reported Past Surgical History: No Surgical Hx Reported Additional Past Surgical History / Comment(s): chest port x2. tooth extraction Past Anesthesia/Blood Transfusion Reactions: Previous Problems w/ Anesthesia Additional Past Anesthesia/Blood Transfusion Reaction / Comment(s): 1st port no issue, 2nd port replacement "felt everything Past Psychological History: Anxiety Smoking Status: Never smoker Past Alcohol Use History: None Reported Past Drug Use History: Marijuana - Past Family History Mother History Unknown: Yes Family Medical History: Diabetes Mellitus Additional Family Medical History / Comment(s): heart mummur. Grandmother had COPD, A fib and CHF. Father History Unknown: Yes Additional Family Medical History / Comment(s): Grandfather had dialysis for a couple of years. Medications and Allergies Home Medications Medication Instructions Recorded Confirmed Type amLODIPine [Norvasc] 5 mg PO DAILY #30 tab 09/17/20 10/18/21 Rx Auryxia 210mg 840 tab PO TID-W/MEALS 11/15/20 10/18/21 History Calcium Acetate [PhosLo] 1,334 mg PO TID-W/MEALS 11/15/20 10/18/21 History Calcium Acetate [PhosLo] 667 mg PO DAILY PRN 11/15/20 10/18/21 History Renaplex-D 1 tab PO DAILY 11/15/20 10/18/21 History carvediloL [Coreg] 3.125 mg PO BID-W/MEALS 11/15/20 10/18/21 History Torsemide [Demadex] 40 mg PO DAILY 02/24/21 10/18/21 History Cyclobenzaprine [Flexeril] 5 mg PO TID PRN 10/18/21 10/18/21 History Lidocaine-Prilocaine Cream [Emla 1 applic TOPICAL DIRECTED PRN 10/18/21 10/18/21 History Cream 2.5%/2.5%] Sevelamer Carbonate 800 mg PO DAILY PRN 10/18/21 10/18/21 History Sevelamer [Renvela] 1,600 mg PO TID-W/MEALS 10/18/21 10/18/21 History Allergies Allergy/AdvReac Type Severity Reaction Status Date / Time chlorhexidine Allergy Itching Verified 10/18/21 22:07 Physical Exam Vitals: Vital Signs Temp Pulse Resp BP Pulse Ox 10/19/21 07:00 137 H 20 163/68 95 10/19/21 05:00 140 H 20 171/73 90 L 10/19/21 04:00 133 H 20 175/80 90 L 10/18/21 20:03 97.8 F 104 H 18 121/59 97 Intake and Output 10/18/21 10/19/21 10/19/21 22:59 06:59 14:59 Other: Weight 81.647 kg Results - Lab Results Most recent lab results Calcium 9.1 mg/dL (8.4-10.2) 10/19/21 06:06 Phosphorus 5.6 mg/dL (2.5-4.5) H 10/19/21 06:06 Magnesium 2.8 mg/dL (1.6-2.3) H 10/19/21 06:06 10/19/21 06:06 10/19/21 06:06 Assessment and Plan Plan: Assessment: 1. End-stage renal disease maintained on hemodialysis on Sunday y schedule via permacath. 2. Hyponatremia secondary to chronic kidney disease. 3. Anemia of chronic kidney disease. Rule out iron deficiency. 4. Weakness and lethargy. Rule out infection. Infectious disease consulted. ?Overdose. 5. Chronic kidney disease mineral bone disease. Phosphorous 5.6. Plan: Hemodialysis today. Check blood cultures. Also obtain cultures from permacath. Follow-up drug screen. 1 g IV vancomycin with dialysis today. Check iron studies. Add Aranesp. Resume Renvela with meals. Thank you for the consultation. I will continue to follow the patient with you during his hospital stay.
[2021-10-19] MEDS: SEVELAMER 800 MG TAB PO SCH ×2 (10:45→15:17)
[2021-10-19] MEDS: MULTIVITAMINS, THERA 1 EACH TAB PO SCH (10:45)
[2021-10-19] MEDS ORDERED: LORazepam 1 MG TAB PO PRN ×3 (11:59→12:00)
[2021-10-19] MEDS ORDERED: VANCOMYCIN IV PER PHARMACY 1 EACH MISC MISCELLANE PRN (12:13)
[2021-10-19] MEDS: DARBEPOETIN ALFA 40 MCG/0.4 ML SYRINGE SQ SCH (13:37)
--- NOTE | 2021-10-19 13:48 | P.CN ---
Psychiatric Consult - . Consult date: 10/19/21 Consult:: 10/19/21 13:47 IDENTIFYING DATA: This patient is a single, employed, 26-year-old male with significant history of ESRD on hemodialysis presented to the emergency department due to feelings of weakness. Psychiatry has been consulted for possible overdose. HISTORY OF PRESENT ILLNESS: The patient presented to the hospital 10/18/2021 for abnormal lab recheck and feelings of weakness. Psychiatry has been consulted for possible overdose. Upon evaluation the patient, he vehemently denies any significant overdose. He was initially confused when asked if he overdosed on anything. The patient reports that he might have overdosed on "protein bars." He states that he ate 6 protein bars because he was not feeling well and thought that it may have helped him. He is vehemently denying any suicidal or homicidal ideation, intention, and/or plan. He denies any auditory or visual hallucinations. He reports no paranoia or delusions. PAST PSYCHIATRIC HISTORY: Patient reports no significant psychiatric history. Patient denies being on any psychiatric medications. Patient denies any previous psychiatric hospitalizations. Patient denies any psychiatric outpatient follow- up. Patient denies any history of suicide attempts in the past. PAST MEDICAL HISTORY: Past Medical History: Dialysis, Hypertension Additional Past Medical History / Comment(s): Covid 19 03/2020, past protein in urine, occasional nose bleeds dialysis M-W-F. port rt chest History of Any Multi-Drug Resistant Organisms: None Reported Past Surgical History: No Surgical Hx Reported Additional Past Surgical History / Comment(s): chest port x2. tooth extraction Past Anesthesia/Blood Transfusion Reactions: Previous Problems w/ Anesthesia Additional Past Anesthesia/Blood Transfusion Reaction / Comment(s): 1st port no issue, 2nd port replacement "felt everything Past Psychological History: Anxiety Smoking Status: Never smoker Past Alcohol Use History: None Reported Past Drug Use History: Marijuana ALLERGIES: Chlorhexidine CHEMICAL DEPENDENCY HISTORY: Patient denies any tobacco, alcohol, or illicit drug use. He does report rare marijuana use. FAMILY PSYCHIATRIC/SUBSTANCE USE HISTORY: No reported family psychiatric history SOCIAL HISTORY: Patient is single, never , and is currently employed. MENTAL STATUS EXAM: General Appearance: Patient appears to be stated age is alert, pleasant, and cooperative. Patient appears to have fair hygiene and grooming wearing hospital gown with fair eye contact. Behavior: Patient is calmly lying in bed without any agitated behavior. Appears diaphoretic. Speech: Patient's speech is fluent and nonpressured. Mood/Affect: Patient reports their mood is "just in pain", affect is congruent and malaised Suicidality/Homicidality: Patient denies having any suicidal or homicidal ideation intent or plan. Perceptions: Patient denies any visual hallucinations and denies any auditory hallucinations Though content/process: There is no evidence of any delusional thought content and thought process is linear and goal-directed. Memory and concentration: AOX3, grossly intact for the purposes of this session. Can spell "WORLD" backwards Judgment and insight: Fair IMPRESSIONS: ESRD on hemodialysis PLAN: -At this time patient DOES NOT meet criteria for inpatient psychiatric admission. The patient is vehemently denying any significant overdose aside from possibly taking too many protein bars in order to supplement his electrolytes and to help address his pain. Psychiatry will sign off at this time. Provided education to the patient to consult his physician should have any questions regarding what is an appropriate diet with his kidney function. -Would recommend the following medication changes/additions: No medication recommendations at this time. -Psychiatry will sign off at this point 10/19/21 13:47
[2021-10-19 14:50] LABS: % Iron Saturation 24.68 (15.00-50.00)
[2021-10-19 15:04] LABS: Acetaminophen <10.0 ug/mL; Alcohol <10 mg/dL
[2021-10-19] MEDS: LORazepam 0.5 MG TAB PO PRN (15:17)
[2021-10-19] MEDS: THIAMINE 100 MG TAB PO SCH (15:17)
--- NOTE | 2021-10-19 17:41 | P.HPIM ---
History of Present Illness H&P Date: 10/19/21 Chief Complaint: Not feeling well This is a 26-year-old patient, follows with Dr. Travis moore. Chronic stable medical conditions include end-stage kidney disease on hemodialysis Sunday and Sunday, essential hypertension, secondary hyperparathyroidism. Patient came in because of not feeling well. Unsteady weak diet and rundown. Unsure about fever. Blood drawn at the nephrology dialysis center was positive for gram-positive cocci. IV vancomycin was given. Patient is slightly delirious. Consultation nephrology denies D was done. Appetite fair denies any respiratory or urinary symptoms. Review of systems: GEN.: Tired EYES: None HEENT: None NECK: None RESPIRATORY: None CARDIOVASCULAR: None GASTROINTESTINAL: None GENITOURINARY: None MUSCULOSKELETAL: None LYMPHATICS: None HEMATOLOGICAL: None PSYCHIATRY: As above NEUROLOGICAL: None Past medical history to include: End-stage kidney disease on hemodialysis, anemia of CK D, minimal bone disease Social history: Lives with his mother. Smokes about 5 bowls of marijuana daily. No alcohol or cigarette smoking. Family history: Diabetes, COPD, A. fib, CHF Physical examination: VITAL SIGNS: 97.8, 120, 18, 121/59, 90% on room air upon presentation GENERAL: BMI 23.1, laying in bed slightly confused. EYES: Pupils equal. Conjunctiva normal. HEENT: External appearance of nose and ears normal, oral cavity grossly normal. NECK: JVD not raised; masses not palpable. HEART: First and second heart sounds are normal; no edema. LUNGS: Respiratory rate normal; clear to auscultation. ABDOMEN: Soft, nontender, liver spleen not palpable, no masses palpable. PSYCH: Able to answer some questions but somewhat deliriousl. MUSCULOSKELETAL:No Clubbing/cyanosis;muscles-grossly intact NEUROLOGICAL: Cranial nerves grossly intact; no facial asymmetry, power and sensation grossly intact. LYMPHATICS: No lymph nodes palpable in the axilla and neck INVESTIGATIONS, reviewed in the clinical context: White count 12.4 hemoglobin 9 platelets 170 sodium 126 potassium 5.3 rate 80 creatinine 10.9 phosphorus 5.6 and magnesium 2.8 bilirubin 1.8 EKG tracing personally reviewed by me-sinus tachycardia rate of 1:30. Right bundle branch block pattern. Nonspecific ST segment changes. Assessment and plan: -Sepsis with blood cultures positive for gram-positive cocci cultures done at the dialysis center IV vancomycin. Consult ID. -Acute delirium from sepsis Treat underlying infection -End-stage kidney disease on hemodialysis Sunday and Sunday Nephrology consulted -Anemia of chronic kidney disease Follow H&H -Minimal bone disease/CK D Supplements -Hyperphosphatemia secondary to CK D Renvela IV vancomycin. Hemodialysis. Home medications resumed. Consultation to nephrology and ID. Care was discussed with the patient. Past Medical History Past Medical History: Dialysis, Hypertension Additional Past Medical History / Comment(s): Covid 19 03/2020, past protein in urine, occasional nose bleeds dialysis M-W-F. port rt chest History of Any Multi-Drug Resistant Organisms: None Reported Past Surgical History: No Surgical Hx Reported Additional Past Surgical History / Comment(s): chest port x2. tooth extraction Past Anesthesia/Blood Transfusion Reactions: Previous Problems w/ Anesthesia Additional Past Anesthesia/Blood Transfusion Reaction / Comment(s): 1st port no issue, 2nd port replacement "felt everything Past Psychological History: Anxiety Smoking Status: Never smoker Past Alcohol Use History: None Reported Past Drug Use History: Marijuana - Past Family History Mother History Unknown: Yes Family Medical History: Diabetes Mellitus Additional Family Medical History / Comment(s): heart mummur. Grandmother had COPD, A fib and CHF. Father History Unknown: Yes Additional Family Medical History / Comment(s): Grandfather had dialysis for a couple of years. Medications and Allergies Home Medications Medication Instructions Recorded Confirmed Type amLODIPine [Norvasc] 5 mg PO DAILY #30 tab 09/17/20 10/18/21 Rx Auryxia 210mg 840 tab PO TID-W/MEALS 11/15/20 10/18/21 History Calcium Acetate [PhosLo] 1,334 mg PO TID-W/MEALS 11/15/20 10/18/21 History Calcium Acetate [PhosLo] 667 mg PO DAILY PRN 11/15/20 10/18/21 History Renaplex-D 1 tab PO DAILY 11/15/20 10/18/21 History carvediloL [Coreg] 3.125 mg PO BID-W/MEALS 11/15/20 10/18/21 History Torsemide [Demadex] 40 mg PO DAILY 02/24/21 10/18/21 History Cyclobenzaprine [Flexeril] 5 mg PO TID PRN 10/18/21 10/18/21 History Lidocaine-Prilocaine Cream [Emla 1 applic TOPICAL DIRECTED PRN 10/18/21 10/18/21 History Cream 2.5%/2.5%] Sevelamer Carbonate 800 mg PO DAILY PRN 10/18/21 10/18/21 History Sevelamer [Renvela] 1,600 mg PO TID-W/MEALS 10/18/21 10/18/21 History Allergies Allergy/AdvReac Type Severity Reaction Status Date / Time chlorhexidine Allergy Itching Verified 10/18/21 22:07 Physical Exam Vitals: Vital Signs Temp Pulse Resp BP Pulse Ox 10/19/21 07:00 137 H 20 163/68 95 10/19/21 05:00 140 H 20 171/73 90 L 10/19/21 04:00 133 H 20 175/80 90 L 10/18/21 20:03 97.8 F 104 H 18 121/59 97 Intake and Output 10/18/21 10/19/21 10/19/21 22:59 06:59 14:59 Other: Weight 81.647 kg Results CBC & Chem 7: 10/19/21 06:06 10/19/21 06:06 Labs: Abnormal Lab Results - Last 24 Hours (Table) 10/18/21 10/18/21 10/19/21 Range/Units 21:59 21:59 03:30 WBC 12.0 H (3.8-10.6) k/uL RBC 2.80 L (4.30-5.90) m/uL Hgb 8.9 L (13.0-17.5) gm/dL Hct 27.2 L (39.0-53.0) % RDW 16.7 H (11.5-15.5) % Neutrophils # 10.4 H (1.3-7.7) k/uL Lymphocytes # 0.6 L (1.0-4.8) k/uL Sodium 125 L 125 L (137-145) mmol/L Potassium 5.2 H (3.5-5.1) mmol/L Chloride 84 L 85 L (98-107) mmol/L BUN 78 H 80 H (9-20) mg/dL Creatinine 9.83 H* 10.63 H* (0.66-1.25) mg/dL Phosphorus 6.0 H (2.5-4.5) mg/dL Magnesium 2.6 H (1.6-2.3) mg/dL Total Bilirubin 1.7 H 1.6 H (0.2-1.3) mg/dL Alkaline Phosphatase 168 H 186 H (38-126) U/L Total Protein 6.0 L 5.8 L (6.3-8.2) g/dL Albumin 2.8 L 2.7 L (3.5-5.0) g/dL 10/19/21 10/19/21 Range/Units 06:06 06:06 WBC 12.4 H (3.8-10.6) k/uL RBC 2.82 L (4.30-5.90) m/uL Hgb 9.0 L (13.0-17.5) gm/dL Hct 27.7 L (39.0-53.0) % RDW 16.3 H (11.5-15.5) % Neutrophils # 10.8 H (1.3-7.7) k/uL Lymphocytes # 0.6 L (1.0-4.8) k/uL Sodium 126 L (137-145) mmol/L Potassium 5.3 H (3.5-5.1) mmol/L Chloride 86 L (98-107) mmol/L BUN 80 H (9-20) mg/dL Creatinine 10.91 H* (0.66-1.25) mg/dL Phosphorus 5.6 H (2.5-4.5) mg/dL Magnesium 2.8 H (1.6-2.3) mg/dL Total Bilirubin 1.8 H (0.2-1.3) mg/dL Alkaline Phosphatase 186 H (38-126) U/L Total Protein 6.0 L (6.3-8.2) g/dL Albumin 2.8 L (3.5-5.0) g/dL
[2021-10-19] MEDS ORDERED: VANCOMYCIN 1,500 MG in SODIUM CHLORIDE 0.9% 250 ML IVPB ONE (18:00)
--- NOTE | 2021-10-19 20:13 | XR ---
EXAMINATION TYPE: XR chest 1V portable DATE OF EXAM: 10/19/2021 COMPARISON: 11/19/2020 HISTORY: Confusion TECHNIQUE: FINDINGS: Heart is normal. Lungs are clear of infiltrate. There is some coarsening of the interstitia l markings. No pleural effusion. There is right central venous catheter with tip in the top of the ri ght atrium bony thorax is intact. IMPRESSION: There is mild increased pulmonary interstitial density compared to last exam. No obvious heart failure.
--- NOTE | 2021-10-19 22:58 | P.CONS ---
History of Present Illness - Reason for Consult Consult date: 10/19/21 Positive blood culture Requesting physician: Chaon Smith - Chief Complaint Fever and chills x few days - History of Present Illness History of Present Illness : Patient is a 26-year male with a past medical history significant for end-stage renal disease on hemodialysis Sunday through the right subclavian permacatheter patient also have AV fistula however is not mature and is not being used for dialysis the patient did went for dialysis on Sunday however the treatment was cut short as the patient was not feeling well patient denies having any nausea or vomiting patient denies having any headache no chest pain was complaining of some shortness of breath and occasional cough no abdominal pain or any diarrhea patient on presentation to the hospital did have a low-grade fever of 99.1 degrees formulae the patient was tachycardic no hypoxemia or need for supplemental oxygen did have white count of 12,000 with a left shift BUN/creatinine was elevated levels are normal patient apparently did have a positive blood culture with gram-positive cocci that were drawn and the dialysis unit infectious disease was consulted for further management of antibiotic therapy most information has been obtained from medical chart 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 EYES: No complaint. ENT: No complaint. RESPIRATORY: As per history of present illness CARDIOVASCULAR: As per history of present illness. GENITOURINARY: No complaint. GASTROINTESTINAL: No complaint. MUSCULOSKELETAL: No complaint. INTEGUMENTARY : No complaint. PSYCHOLOGIC: No complaint. ENDOCRINE: No complaint. NEUROLOGIC: No complaint. Past medical history : Reviewed, documented below Past surgical history : Reviewed, documented below Social history: Reviewed, documented below Medications: Reviewed, as documented below EXAMINATION: Vital sigans= Reviewed and documented below GENERAL DESCRIPTION: Middle-aged male lying in bed, no distress. No tachypnea or accessory muscle of respiration use. HEENT: Shows Pallor , no scleral icterus. Oral mucous membrane is dry. NECK: Trachea central, no thyromegaly. LUNGS: Unlabored breathing. Decreased breath of the base. No wheeze or crackle. HEART: S1, S2, regular rate and rhythm. ABDOMEN: Soft, no tenderness , guarding or rigidity EXTREMITIES: No edema feet SKIN: No rash, no masses palpable. NEUROLOGICAL: The patient is lethargic but arousable mood and affect is normal LABS AND RADIOLOGY: Reviewed results see below Assessment : 1patient presented to hospital with generalized weakness not feeling well now with evidence of gram-positive bacteremia high clinic suspicious for dialysis catheter associated bacteremia and will need to cover for MRSA to the likely pathogen versus staph epi Plan: 1-blood cultures will be repeated from the catheter and peripherally 2-vancomycin pharmacy to dose target trough of 15 while watching kidney function and vancomycin trough closely We will follow on clinical condition and cultures to further adjust medication if needed Thank you for this consultation we will follow the patient along with you Review of Systems Positive point has been mentioned in the HPI rest of the systems are negative Past Medical History Past Medical History: Dialysis, Hypertension Additional Past Medical History / Comment(s): Covid 19 03/2020, past protein in urine, occasional nose bleeds dialysis M-W-F. port rt chest History of Any Multi-Drug Resistant Organisms: None Reported Past Surgical History: No Surgical Hx Reported Additional Past Surgical History / Comment(s): chest port x2. tooth extraction Past Anesthesia/Blood Transfusion Reactions: Previous Problems w/ Anesthesia Additional Past Anesthesia/Blood Transfusion Reaction / Comm: 1st port no issue, 2nd port replacement "felt everything Past Psychological History: Anxiety Smoking Status: Never smoker Past Alcohol Use History: None Reported Past Drug Use History: Marijuana - Past Family History Mother History Unknown: Yes Family Medical History: Diabetes Mellitus Additional Family Medical History / Comment(s): heart mummur. Grandmother had COPD, A fib and CHF. Father History Unknown: Yes Additional Family Medical History / Comment(s): Grandfather had dialysis for a couple of years. Medications and Allergies Home Medications Medication Instructions Recorded Confirmed Type amLODIPine [Norvasc] 5 mg PO DAILY #30 tab 09/17/20 10/18/21 Rx Auryxia 210mg 840 tab PO TID-W/MEALS 11/15/20 10/18/21 History Calcium Acetate [PhosLo] 1,334 mg PO TID-W/MEALS 11/15/20 10/18/21 History Calcium Acetate [PhosLo] 667 mg PO DAILY PRN 11/15/20 10/18/21 History Renaplex-D 1 tab PO DAILY 11/15/20 10/18/21 History carvediloL [Coreg] 3.125 mg PO BID-W/MEALS 11/15/20 10/18/21 History Torsemide [Demadex] 40 mg PO DAILY 02/24/21 10/18/21 History Cyclobenzaprine [Flexeril] 5 mg PO TID PRN 10/18/21 10/18/21 History Lidocaine-Prilocaine Cream [Emla 1 applic TOPICAL DIRECTED PRN 10/18/21 10/18/21 History Cream 2.5%/2.5%] Sevelamer Carbonate 800 mg PO DAILY PRN 10/18/21 10/18/21 History Sevelamer [Renvela] 1,600 mg PO TID-W/MEALS 10/18/21 10/18/21 History Allergies Allergy/AdvReac Type Severity Reaction Status Date / Time chlorhexidine Allergy Itching Verified 10/18/21 22:07 Physical Exam Vitals: Vital Signs Temp Pulse Resp BP Pulse Ox 10/19/21 07:00 137 H 20 163/68 95 10/19/21 05:00 140 H 20 171/73 90 L 10/19/21 04:00 133 H 20 175/80 90 L 10/18/21 20:03 97.8 F 104 H 18 121/59 97 Intake and Output 10/18/21 10/19/21 10/19/21 22:59 06:59 14:59 Other: Weight 81.647 kg GENERAL DESCRIPTION: Middle-aged male lying in bed, no distress. No tachypnea or accessory muscle of respiration use. HEENT: Shows Pallor , no scleral icterus. Oral mucous membrane is dry. No pharyngeal erythema or thrush NECK: Trachea central, no thyromegaly. LUNGS: Unlabored breathing. Decreased breath sounds at the Base. No wheeze or crackle. HEART: S1, S2, regular rate and rhythm. No loud murmur ABDOMEN: Soft, no tenderness , guarding or rigidity, no organomegaly EXTREMITIES: No edema of feet. SKIN: No rash, no masses palpable. NEUROLOGICAL: The patient is awake, alert, oriented x3, mood and affect normal. Results CBC & Chem 7: 10/31/21 08:18 10/31/21 08:18 Labs: Abnormal Lab Results - Last 24 Hours (Table) 10/18/21 10/18/21 10/19/21 Range/Units 21:59 21:59 03:30 WBC 12.0 H (3.8-10.6) k/uL RBC 2.80 L (4.30-5.90) m/uL Hgb 8.9 L (13.0-17.5) gm/dL Hct 27.2 L (39.0-53.0) % RDW 16.7 H (11.5-15.5) % Neutrophils # 10.4 H (1.3-7.7) k/uL Lymphocytes # 0.6 L (1.0-4.8) k/uL Sodium 125 L 125 L (137-145) mmol/L Potassium 5.2 H (3.5-5.1) mmol/L Chloride 84 L 85 L (98-107) mmol/L BUN 78 H 80 H (9-20) mg/dL Creatinine 9.83 H* 10.63 H* (0.66-1.25) mg/dL Phosphorus 6.0 H (2.5-4.5) mg/dL Magnesium 2.6 H (1.6-2.3) mg/dL Total Bilirubin 1.7 H 1.6 H (0.2-1.3) mg/dL Alkaline Phosphatase 168 H 186 H (38-126) U/L Total Protein 6.0 L 5.8 L (6.3-8.2) g/dL Albumin 2.8 L 2.7 L (3.5-5.0) g/dL 10/19/21 10/19/21 Range/Units 06:06 06:06 WBC 12.4 H (3.8-10.6) k/uL RBC 2.82 L (4.30-5.90) m/uL Hgb 9.0 L (13.0-17.5) gm/dL Hct 27.7 L (39.0-53.0) % RDW 16.3 H (11.5-15.5) % Neutrophils # 10.8 H (1.3-7.7) k/uL Lymphocytes # 0.6 L (1.0-4.8) k/uL Sodium 126 L (137-145) mmol/L Potassium 5.3 H (3.5-5.1) mmol/L Chloride 86 L (98-107) mmol/L BUN 80 H (9-20) mg/dL Creatinine 10.91 H* (0.66-1.25) mg/dL Phosphorus 5.6 H (2.5-4.5) mg/dL Magnesium 2.8 H (1.6-2.3) mg/dL Total Bilirubin 1.8 H (0.2-1.3) mg/dL Alkaline Phosphatase 186 H (38-126) U/L Total Protein 6.0 L (6.3-8.2) g/dL Albumin 2.8 L (3.5-5.0) g/dL Assessment and Plan (1) Positive blood culture Current Visit: No Status: Acute Code(s): R78.81 - BACTEREMIA SNOMED Code(s): 251261257 Plan: 1
[2021-10-20] MEDS: THIAMINE 100 MG TAB PO SCH ×2 (06:39→17:50)
[2021-10-20] MEDS: SEVELAMER 800 MG TAB PO SCH ×3 (06:39→17:50)
[2021-10-20] MEDS: MORPHINE SULFATE 4 MG/ML SYRINGE IVP PRN ×3 (08:41→21:36)
[2021-10-20] MEDS: MULTIVITAMINS, THERA 1 EACH TAB PO SCH (08:41)
--- NOTE | 2021-10-20 09:52 | P.PN ---
Subjective Patient is seen in follow-up for end-stage renal disease. He is maintained on hemodialysis on Sunday schedule. Blood cultures are positive for staph aureus. Resting in bed. Had fever of 100.4F earlier this morning. Vital signs are stable. General: Awake. No acute distress. HEENT: Head exam is unremarkable. LUNGS: Breath sounds decreased. HEART: Rate and Rhythm are regular. ABDOMEN: Soft, no distention. EXTREMITITES: No edema. Objective - Vital Signs Vital signs: Vital Signs Temp 98.4 F 10/20/21 05:15 Pulse 135 H 10/20/21 04:00 Resp 16 10/20/21 04:00 BP 155/67 10/20/21 04:00 Pulse Ox 95 10/20/21 04:00 FiO2 Intake & Output 10/19/21 10/20/21 10/20/21 18:59 06:59 18:59 Intake Total 160 Output Total 2000 0 Balance -2000 160 Weight 81.647 kg 62 kg Intake: IV 160 0.9 160 Output: Urine 0 0 Hemodialysis 1999 Other: Voiding Method Toilet Urinal # Voids 0 - Labs CBC & Chem 7: 10/19/21 06:06 10/19/21 06:06 Labs: Abnormal Lab Results - Last 24 Hours (Table) 10/19/21 10/19/21 Range/Units 10:16 10:48 Plasma Lactic Acid Babak 0.6 L (0.7-2.0) mmol/L Iron 27 L (65-175) ug/dL TIBC 107 L (228-460) ug/dL Transferrin 76.7 L (204.0-354.0) mg/dL Ferritin 39482.0 H (22.0-322.0) ng/mL Microbiology - Last 24 Hours (Table) 10/19/21 14:10 Blood Culture Gram Stain - Preliminary Blood 10/19/21 14:10 Blood Culture - Final Blood 10/19/21 19:30 Blood Culture Gram Stain - Preliminary Blood Blood Culture - Preliminary Staphylococcus aureus 10/19/21 10:16 Blood Culture - Final Blood Assessment and Plan Plan: Assessment: 1. End-stage renal disease maintained on hemodialysis on Sunday schedule via permacath. 2. Hyponatremia secondary to chronic kidney disease. 3. Anemia of chronic kidney disease. Iron replete. On Devika. 4. Staph aureus bacteremia. Likely source being the permacath. 5. Chronic kidney disease mineral bone disease. Phosphorous 5.6. On Renvela. Plan: Hemodialysis tomorrow. Will discuss with ID if permacath needs to be removed. If the catheter needs to be removed, I will dialyze him today and remove the catheter after dialysis.
--- NOTE | 2021-10-20 12:25 | P.PN ---
Progress Note - Text Progress Note Date: 10/20/21 Chief Complaint: Not feeling well This is a 26-year-old patient, follows with Dr. Travis moore. Chronic stable medical conditions include end-stage kidney disease on hemodialysis Sunday and Sunday, essential hypertension, secondary hyperparathyroidism. Patient came in because of not feeling well. Unsteady weak diet and rundown. Unsure about fever. Blood drawn at the nephrology dialysis center was positive for gram-positive cocci. IV vancomycin was given. Patient is slightly delirious. Consultation nephrology denies D was done. Appetite fair denies any respiratory or urinary symptoms. Admitted with sepsis with positive blood culture from the dialysis center, delirium. IV vancomycin started. October 20: Tired. Decreased oral intake. Dialysis catheter to be taken out today. Patient received dialysis yesterday. Discussed with patient. Tired. Repeat blood cultures from yesterday growing staph aureus. Active Medications Darbepoetin Luis E (Darbepoetin Luis E 40 Mcg/0.4 Ml Syringe) 40 mcg SQ Q7D CHAVA Last Admin: 10/19/21 13:37 Dose: 40 mcg Vancomycin HCl 1,250 mg/ (Sodium Chloride) 250 mls @ 125 mls/hr IVPB ONCE ONE Stop: 10/20/21 15:59 Lorazepam (Lorazepam 0.5 Mg Tab) 0.5 mg PO Q6HR PRN PRN Reason: Anxiety Last Admin: 10/19/21 15:17 Dose: 0.5 mg Lorazepam (Lorazepam 1 Mg Tab) 1 mg PO Q2HR PRN PRN Reason: CIWA 8 or 9 Lorazepam (Lorazepam 1 Mg Tab) 1 mg PO Q1HR PRN PRN Reason: CIWA 10 to 15 Lorazepam (Lorazepam 1 Mg Tab) 2 mg PO Q10M PRN PRN Reason: CIWA 16 or higher Stop: 10/27/21 12:01 Miscellaneous Information (Vancomycin Iv Per Pharmacy 1 Each Misc) 1 each MISCELLANE DIRECTED PRN; Protocol PRN Reason: Per Protocol Morphine Sulfate (Morphine Sulfate 4 Mg/Ml Syringe) 4 mg IVP Q4HR PRN PRN Reason: Pain Last Admin: 10/20/21 08:41 Dose: 4 mg Multivitamins (Multivitamins, Thera 1 Each Tab) 1 each PO DAILY CHAVA Last Admin: 10/20/21 08:41 Dose: 1 each Naloxone HCl (Naloxone 0.4 Mg/Ml 1 Ml Vial) 0.2 mg IV Q2M PRN PRN Reason: Opioid Reversal Sevelamer Carbonate (Sevelamer 800 Mg Tab) 1,600 mg PO TID-W/MEALS [facility] Last Admin: 10/20/21 06:39 Dose: 1,600 mg Thiamine HCl (Thiamine 100 Mg Tab) 100 mg PO BID-W/MEALS [facility] Last Admin: 10/20/21 06:39 Dose: 100 mg Past medical history to include: End-stage kidney disease on hemodialysis, anemia of CK D, minimal bone disease Social history: Lives with his mother. Smokes about 5 bowls of marijuana daily. No alcohol or cigarette smoking. Family history: Diabetes, COPD, A. fib, CHF Physical examination: VITAL SIGNS: T-max 100.4, 1:30, 22, 163 with 71, 95% on 2 L GENERAL: laying in bed tired. Right chest wall dialysis catheter EYES: Pupils equal. Conjunctiva normal. HEENT: External appearance of nose and ears normal, oral cavity grossly normal. NECK: JVD not raised; masses not palpable. HEART: First and second heart sounds are normal; no edema. LUNGS: Respiratory rate normal; clear to auscultation. ABDOMEN: Soft, nontender, liver spleen not palpable, no masses palpable. PSYCH: Able tonsil simple questions MUSCULOSKELETAL:No Clubbing/cyanosis;muscles-grossly intact INVESTIGATIONS, reviewed in the clinical context: White count 12.4 hemoglobin 9 platelets 170 sodium 126 potassium 5.3 rate 80 creatinine 10.9 phosphorus 5.6 and magnesium 2.8 bilirubin 1.8 EKG tracing personally reviewed by me-sinus tachycardia rate of 1:30. Right bundle branch block pattern. Nonspecific ST segment changes. Assessment and plan: -Sepsis with blood cultures positive for gram-positive cocci cultures done at the dialysis center and from October 19. Likely infected dialysis catheter: Slow to respond IV vancomycin. Plan for dialysis catheter, today. -Acute delirium from sepsis: Slow to respond Treat underlying infection -End-stage kidney disease on hemodialysis Sunday and Sunday Nephrology consulted -Anemia of chronic kidney disease Follow H&H -Minimal bone disease/CK D Supplements -Hyperphosphatemia secondary to CK D Renvela IV vancomycin. Hemodialysis. Dialysis catheter, today. Possibly dialysis today discussed with patient
[2021-10-20] MEDS ORDERED: VANCOMYCIN 1,250 MG in SODIUM CHLORIDE 0.9% 250 ML IVPB ONE (14:00)
[2021-10-20] MEDS ORDERED: LIDOCAINE 2% INJ 20 MG/ML (20 ML MDV) ONE (15:50)
[2021-10-20] MEDS: LORazepam 0.5 MG TAB PO PRN (20:37)
--- NOTE | 2021-10-20 23:03 | P.PN ---
Subjective Progress Note Date: 10/20/21 Principal diagnosis: Bacteremia Patient is a 26 year male with a past medical history significant for end-stage renal disease on hemodialysis presented to hospital with sepsis and bacteremia secondary to dialysis catheter infection. On today's evaluation that is 10/20/2021, the patient did have a low-grade fever however is feeling slightly better, the patient denies having any chest pain or shortness of breath or cough no abdominal pain or diarrhea Objective - Vital Signs Vital signs: Vital Signs Temp 99.9 F H 10/20/21 08:00 Pulse 130 H 10/20/21 08:00 Resp 22 10/20/21 08:00 BP 163/71 10/20/21 08:00 Pulse Ox 95 10/20/21 04:00 FiO2 Intake & Output 10/19/21 10/20/21 10/20/21 18:59 06:59 18:59 Intake Total 160 237 Output Total 1999 0 Balance -1999 160 237 Weight 81.647 kg 62 kg 62 kg Intake: IV 160 0.9 160 Oral 237 Output: Urine 0 0 Hemodialysis 1999 Other: Voiding Method Toilet Toilet Urinal Urinal # Voids 0 - Exam GENERAL DESCRIPTION: Young male lying in bed in no distress RESPIRATORY SYSTEM: Unlabored breathing , decreased breath sounds at bases HEART: S1 S2 regular rate and rhythm , ABDOMEN: Soft , no tenderness EXTREMITIES: No edema feet - Labs CBC & Chem 7: 10/19/21 06:06 10/19/21 06:06 Labs: Abnormal Lab Results - Last 24 Hours (Table) 10/19/21 Range/Units 10:16 Iron 27 L (65-175) ug/dL TIBC 107 L (228-460) ug/dL Transferrin 76.7 L (204.0-354.0) mg/dL Ferritin 07313.0 H (22.0-322.0) ng/mL Microbiology - Last 24 Hours (Table) 10/19/21 14:10 Blood Culture Gram Stain - Preliminary Blood 10/19/21 14:10 Blood Culture - Final Blood 10/19/21 19:30 Blood Culture Gram Stain - Preliminary Blood Blood Culture - Preliminary Staphylococcus aureus 10/19/21 10:16 Blood Culture - Final Blood Assessment and Plan (1) Positive blood culture Current Visit: No Status: Acute Code(s): R78.81 - BACTEREMIA SNOMED Code(s): 737194446 Plan: 1patient presented to hospital with sepsis source is likely dialysis catheter infection in this patient who did have a staphylococcal bacteremia with sensitivities pending. 2dialysis catheter will need to be removed in order to clear this bacteremia. Discussed with nephrology 3patient to continue with the vancomycin and blood cultures will be repeated daily to Document clearance of his bacteremia Time with Patient: Less than 30
--- NOTE | 2021-10-20 23:03 | OP ---
OPERATIVE REPORT PREOPERATIVE DIAGNOSIS: Acute on chronic renal failure. PROCEDURE: Removal of dialysis, right jugular approach. DESCRIPTION OF PROCEDURE: The patient was seen in the room. Right side of the neck and chest was prepped and drapes applied in sterile manner. 1% lidocaine. The pigtail and a good sinus catheter small incision were made. Catheter was removed. Tip of the catheter was sent for culture. Incision was closed with 3-0 nylon. Dressing applied. Patient tolerated the procedure well. MMODL / IJN: [id number] /
[2021-10-21] MEDS: THIAMINE 100 MG TAB PO SCH ×2 (06:27→17:11)
[2021-10-21] MEDS: SEVELAMER 800 MG TAB PO SCH ×3 (06:27→17:10)
[2021-10-21] MEDS: MULTIVITAMINS, THERA 1 EACH TAB PO SCH (08:41)
--- NOTE | 2021-10-21 08:41 | P.PN ---
Subjective Patient is seen in follow-up for end-stage renal disease. He is maintained on hemodialysis on Sunday schedule. Blood cultures are positive for staph aureus. Permacath removed 10/20/2021 after dialysis. Resting in bed. No active complaints. Vital signs are stable. General: Awake. No acute distress. HEENT: Head exam is unremarkable. LUNGS: Breath sounds decreased. HEART: Rate and Rhythm are regular. ABDOMEN: Soft, no distention. EXTREMITITES: Trace edema. Objective - Vital Signs Vital signs: Vital Signs Temp 98 F 10/21/21 03:31 Pulse 111 H 10/21/21 03:31 Resp 18 10/21/21 03:31 BP 148/81 10/21/21 03:31 Pulse Ox 94 L 10/21/21 03:31 FiO2 Intake & Output 10/20/21 10/21/21 10/21/21 18:59 06:59 18:59 Intake Total 1248 160 Output Total 1999 200 Balance -752 -40 Weight 62 kg 72.5 kg Intake: IV 160 0.9 160 Oral 948 Hemodialysis 300 Output: Urine 200 Hemodialysis 2000 Other: Voiding Method Toilet Toilet Urinal Urinal # Voids 0 - Labs CBC & Chem 7: 10/19/21 06:06 10/19/21 06:06 Labs: Microbiology - Last 24 Hours (Table) 10/20/21 16:00 Catheter Tip Culture - Preliminary Catheter Tip 10/19/21 14:10 Blood Culture Gram Stain - Preliminary Blood Assessment and Plan Plan: Assessment: 1. End-stage renal disease maintained on hemodialysis on Sunday schedule via permacath. Last hemodialysis 10/20/2021. 2. Hyponatremia secondary to chronic kidney disease. Hypervolemic. 3. Anemia of chronic kidney disease. Iron replete. On Aranesp. 4. Staph aureus bacteremia. Likely source being the permacath - removed 10/20/2021. 5. Chronic kidney disease mineral bone disease. Phosphorous 5.6. On Renvela. Plan: Continue to monitor labs daily. Permacath will be placed once cleared by infectious disease. 1500 mL fluid restriction. Monitor vancomycin levels. Dose to be adjusted for renal function.
[2021-10-21] MEDS: MORPHINE SULFATE 4 MG/ML SYRINGE IVP PRN ×2 (09:24→13:13)
[2021-10-21 10:17] LABS: Amphetamine Screen,Urine Not Detected (NotDetected); Barbiturate Screen,Urine Not Detected (NotDetected); Benzodiazepines Screen,Urine Detected (NotDetected); Cocaine Screen,Urine Not Detected (NotDetected); Methadone Screen, Urine Not Detected (NotDetected); Opiate Screen,Urine Detected (NotDetected); Oxycodone Screen, Urine Not Detected (NotDetected); Phencyclidine Screen,Urine Not Detected (NotDetected); Tricyclic Antidepressant,Urine Not Detected (NotDetected); Urn Cannabinoid Scrn Detected (NotDetected)
[2021-10-21 10:51] LABS: Appearance,Urine Clear (Clear); Bilirubin,Urine Negative (Negative); Blood,Urine Trace (Negative); Color,Urine Light Yellow; Glucose,Urine (UA) 1+ (Negative); Ketones,Urine Negative (Negative); Leukocyte Esterase,Urine Negative (Negative); Nitrite,Urine Negative (Negative); Protein,Urine 2+ (Negative); RBC,Urine 2 /hpf (0-5); Specific Gravity,Urine 1.007 (1.001-1.035); Squamous Epithelial Cell,Urine <1 /hpf (0-4); Urobilinogen,Urine <2.0 mg/dL (<2.0); WBC,Urine 2 /hpf (0-5)
[2021-10-21 11:18] LABS: Calcium 9.3 mg/dL (8.4-10.2); Potassium 5.4 mmol/L (3.5-5.1)
--- NOTE | 2021-10-21 12:24 | US ---
EXAMINATION TYPE: US venous doppler duplex LE LT DATE OF EXAM: 10/21/2021 12:08 PM COMPARISON: NONE CLINICAL HISTORY: left thigh pain - r/o dvt. SIDE PERFORMED: Left TECHNIQUE: The lower extremity deep venous system is examined utilizing real time linear array sonog bronson with graded compression, doppler sonography and color-flow sonography. VESSELS IMAGED: Common Femoral Vein Deep Femoral Vein Greater Saphenous Vein * Femoral Vein Popliteal Vein Small Saphenous Vein * Proximal Calf Veins (* superficial vessels) Left Leg: Negative for DVT Incidental note is made of bilateral groin nodes. IMPRESSION: No evidence for DVT
--- NOTE | 2021-10-21 12:57 | XR ---
EXAMINATION TYPE: XR Hip LT and AP Pelvis DATE OF EXAM: 10/21/2021 COMPARISON: NONE HISTORY: Pain TECHNIQUE: A single AP view of the pelvis is obtained. Two views of the left hip are obtained. FINDINGS: There is no acute fracture/dislocation evident in the pelvis. The hip and sacroiliac join ts appear symmetric and unremarkable. The overlying soft tissue appears unremarkable. Two views of left hip show no acute fracture or dislocation. No focal lytic lesion seen in the proxi mal left femur. Probable bone island present in the left femoral neck. Probable vascular calcificati ons present within the pelvis. The overlying soft tissue is unremarkable. IMPRESSION: There is no acute fracture or dislocation in the pelvis or left hip. Consider hip MRI as indicated for better evaluation.
[2021-10-21] MEDS: ACETAMINOPHEN TAB 325 MG TAB PO PRN (13:12)
--- NOTE | 2021-10-21 13:50 | P.CNOR ---
History of Present Illness - [facility] Consult date: 10/21/21 History of present illness: The patient is a 26 yo male with multiple medical problems including ESRD on dialysis. He is admitted to and orthopaedics has been consulted for left hip pain. At the time of my evaluation, he is denying left groin pain, but does report low back pain and pain radiating down into the back of his legs and down into his feet. He denies any trauma to his hip, but states that he would have a difficult time walking due to his LE discomfort. He denies feeling febrile or having chills, but does report feeling ill recently and having generalized malaise. Past Medical History Past Medical History: Dialysis, Hypertension Additional Past Medical History / Comment(s): Covid 19 03/2020, past protein in urine, occasional nose bleeds dialysis M-W-F. port rt chest History of Any Multi-Drug Resistant Organisms: None Reported Past Surgical History: No Surgical Hx Reported Additional Past Surgical History / Comment(s): chest port x2. tooth extraction Past Anesthesia/Blood Transfusion Reactions: Previous Problems w/ Anesthesia Additional Past Anesthesia/Blood Transfusion Reaction / Comm: 1st port no issue, 2nd port replacement "felt everything Past Psychological History: Anxiety Smoking Status: Never smoker Past Alcohol Use History: None Reported Past Drug Use History: Marijuana - Past Family History Mother History Unknown: Yes Family Medical History: Diabetes Mellitus Additional Family Medical History / Comment(s): heart mummur. Grandmother had COPD, A fib and CHF. Father History Unknown: Yes Additional Family Medical History / Comment(s): Grandfather had dialysis for a couple of years. Medications and Allergies Home Medications Medication Instructions Recorded Confirmed Type amLODIPine [Norvasc] 5 mg PO DAILY #30 tab 09/17/20 10/18/21 Rx Auryxia 210mg 840 tab PO TID-W/MEALS 11/15/20 10/18/21 History Calcium Acetate [PhosLo] 1,334 mg PO TID-W/MEALS 11/15/20 10/18/21 History Calcium Acetate [PhosLo] 667 mg PO DAILY PRN 11/15/20 10/18/21 History Renaplex-D 1 tab PO DAILY 11/15/20 10/18/21 History carvediloL [Coreg] 3.125 mg PO BID-W/MEALS 11/15/20 10/18/21 History Torsemide [Demadex] 40 mg PO DAILY 02/24/21 10/18/21 History Cyclobenzaprine [Flexeril] 5 mg PO TID PRN 10/18/21 10/18/21 History Lidocaine-Prilocaine Cream [Emla 1 applic TOPICAL DIRECTED PRN 10/18/21 0 10/18/21 History Cream 2.5%/2.5%] Sevelamer Carbonate 800 mg PO DAILY PRN 10/18/21 10/18/21 History Sevelamer [Renvela] 1,600 mg PO TID-W/MEALS 10/18/21 10/18/21 History Allergies Allergy/AdvReac Type Severity Reaction Status Date / Time chlorhexidine Allergy Itching Verified 10/18/21 22:07 Physical Examination The patient is resting comfortably in bed. He is alert and able to answer questions. He demonstrates non-labored breathing with symmetric chest expansion. LEFT LE: No overlying erythema or warmth on the skin over the hip. There is minimal to no pain with passive logroll of the hip or with heel strike. He does have some discomfort with flexion of the hip to 90-deg, but this produced pain radiating down his leg and not groin pain. There is no tenderness over the groin or greater trochanter. He has a positive straight leg raise. The calf and thigh are soft. There is diffuse tenderness throughout the calf and foot. RIGHT LE: No overlying erythema or warmth on the skin over the hip. There is minimal to no pain with passive logroll of the hip or with heel strike. He does have some discomfort with flexion of the hip to 90-deg, but this produced pain radiating down his leg and not groin pain. There is no tenderness over the groin or greater trochanter. He has a positive straight leg raise. The calf and thigh are soft. There is diffuse tenderness throughout the calf and foot. Results X-rays of the left hip and pelvis are negative for acute fracture or obvious bony pathology. - Labs Labs: Abnormal Lab Results - Last 24 Hours (Table) 10/21/21 10/21/21 10/21/21 Range/Units 09:19 09:30 09:30 Sodium 127 L (137-145) mmol/L Potassium 5.4 H (3.5-5.1) mmol/L Chloride 90 L (98-107) mmol/L Carbon Dioxide 20 L (22-30) mmol/L BUN 82 H (9-20) mg/dL Creatinine 9.10 H* (0.66-1.25) mg/dL Urine Protein 2+ H (Negative) Urine Glucose (UA) 1+ H (Negative) Urine Blood Trace H (Negative) Urine Opiates Screen Detected H (NotDetected) U Benzodiazepines Scrn Detected H (NotDetected) U Marijuana (THC) Screen Detected H (NotDetected) Microbiology - Last 24 Hours (Table) 10/20/21 16:00 Catheter Tip Culture - Preliminary Catheter Tip 10/19/21 14:10 Blood Culture Gram Stain - Preliminary Blood H & H 10/18/21 10/19/21 Range/Units 21:59 06:06 Hgb 8.9 L 9.0 L (13.0-17.5) gm/dL Hct 27.2 L 27.7 L (39.0-53.0) % Coagulation 10/18/21 Range/Units 21:59 INR 1.1 (<1.2) Result Diagrams: 10/19/21 06:06 10/21/21 09:19 Assessment and Plan Assessment: Bilateral leg pain Low back pain Minimal left hip pain ESRD on dialysis Plan: At the time of my evaluation the patient's left hip is minimally irritable. Most of his pain is diffusely throughout both legs and in his low back. Since his x- rays are negative and the exam of both hips is benign, I would recommend a spine evaluation to rule out his back as a cause of his diffuse leg pain. If the spine is not thought to be the cause of his pain, I would re-assess and consider advanced imaging of his LE. Time with Patient: Greater than 30
--- NOTE | 2021-10-21 16:17 | XR ---
EXAMINATION TYPE: XR lumbar spine 2 or 3V DATE OF EXAM: 10/21/2021 4:01 PM INDICATION: Patient age:Male; 26 years old; Reason for study: back pain; COMPARISON: None TECHNIQUE: Frontal, lateral and coned in L5-S1 lateral views of the spine. FINDINGS: Mild superior endplate depression changes seen at multiple levels which are minimal. No zeina dence of any acute osseous pathology. There is normal alignment of the lumbar vertebral bodies. IMPRESSION: No acute process.
--- NOTE | 2021-10-21 16:32 | P.PN ---
Progress Note - Text Progress Note Date: 10/21/21 Chief Complaint: Not feeling well This is a 26-year-old patient, follows with Dr. Travis moore. Chronic stable medical conditions include end-stage kidney disease on hemodialysis Sunday and Sunday, essential hypertension, secondary hyperparathyroidism. Patient came in because of not feeling well. Unsteady weak diet and rundown. Unsure about fever. Blood drawn at the nephrology dialysis center was positive for gram-positive cocci. IV vancomycin was given. Patient is slightly delirious. Consultation nephrology denies D was done. Appetite fair denies any respiratory or urinary symptoms. Admitted with sepsis with positive blood culture from the dialysis center, delirium. IV vancomycin started. October 20: Tired. Decreased oral intake. Dialysis catheter to be taken out today. Patient received dialysis yesterday. Discussed with patient. Tired. Repeat blood cultures from yesterday growing staph aureus. October 21: Less delirious today. Dialysis catheter has been removed yesterday. Blood cultures from here growing staph aureus. Patient not hungry. Did not eat his breakfast. Tired. Patient complaining of pain around the left hip area. I ordered Doppler ultrasound that came back to be negative. Hip x-ray was also ordered and came back to be unremarkable. Orthopedics consulted. Active Medications Acetaminophen (Acetaminophen Tab 325 Mg Tab) 650 mg PO Q4HR PRN PRN Reason: Fever and/ or Pain Last Admin: 10/21/21 13:12 Dose: 650 mg Darbepoetin Luis E (Darbepoetin Luis E 40 Mcg/0.4 Ml Syringe) 40 mcg SQ Q7D CHAVA Last Admin: 10/19/21 13:37 Dose: 40 mcg Lorazepam (Lorazepam 0.5 Mg Tab) 0.5 mg PO Q6HR PRN PRN Reason: Anxiety Last Admin: 10/20/21 20:37 Dose: 0.5 mg Lorazepam (Lorazepam 1 Mg Tab) 1 mg PO Q2HR PRN PRN Reason: CIWA 8 or 9 Lorazepam (Lorazepam 1 Mg Tab) 1 mg PO Q1HR PRN PRN Reason: CIWA 10 to 15 Lorazepam (Lorazepam 1 Mg Tab) 2 mg PO Q10M PRN PRN Reason: CIWA 16 or higher Stop: 10/27/21 12:01 Miscellaneous Information (Vancomycin Iv Per Pharmacy 1 Each Misc) 1 each MISCELLANE DIRECTED PRN; Protocol PRN Reason: Per Protocol Morphine Sulfate (Morphine Sulfate 4 Mg/Ml Syringe) 4 mg IVP Q4HR PRN PRN Reason: Pain Last Admin: 10/21/21 13:13 Dose: 4 mg Multivitamins (Multivitamins, Thera 1 Each Tab) 1 each PO DAILY [facility] Last Admin: 10/21/21 08:41 Dose: 1 each Naloxone HCl (Naloxone 0.4 Mg/Ml 1 Ml Vial) 0.2 mg IV Q2M PRN PRN Reason: Opioid Reversal Sevelamer Carbonate (Sevelamer 800 Mg Tab) 1,600 mg PO TID-W/MEALS [facility] Last Admin: 10/21/21 12:48 Dose: 1,600 mg Sodium Zirconium Cyclosilicate (Sodium Zirconium Cyclosilicate 10 Gm Packet) 10 gm PO BID [facility] Stop: 10/22/21 21:01 Thiamine HCl (Thiamine 100 Mg Tab) 100 mg PO BID-W/MEALS [facility] Last Admin: 10/21/21 06:27 Dose: 100 mg Torsemide (Torsemide 20 Mg Tab) 40 mg PO DAILY [facility] Past medical history to include: End-stage kidney disease on hemodialysis, anemia of CK D, minimal bone disease Social history: Lives with his mother. Smokes about 5 bowls of marijuana daily. No alcohol or cigarette smoking. Family history: Diabetes, COPD, A. fib, CHF Physical examination: VITAL SIGNS: 5% room air GENERAL: laying in bed tired. Dialysis catheter removed from the right chest EYES: Pupils equal. Conjunctiva normal. HEENT: External appearance of nose and ears normal, oral cavity grossly normal. NECK: JVD not raised; masses not palpable. HEART: First and second heart sounds are normal; no edema. LUNGS: Respiratory rate normal; clear to auscultation. ABDOMEN: Soft, nontender, liver spleen not palpable, no masses palpable. PSYCH: Answering questions more appropriately MUSCULOSKELETAL:No Clubbing/cyanosis;muscles-grossly intact INVESTIGATIONS, reviewed in the clinical context: October 21: Sodium 127 potassium 5.4 twice a day 2 creatinine 9.1 Urine drug screen: Positive for opiates, benzodiazepine, marijuana White count 12.4 hemoglobin 9 platelets 170 sodium 126 potassium 5.3 rate 80 creatinine 10.9 phosphorus 5.6 and magnesium 2.8 bilirubin 1.8 EKG tracing personally reviewed by me-sinus tachycardia rate of 1:30. Right bundle branch block pattern. Nonspecific ST segment changes. Assessment and plan: -Sepsis with blood cultures positive for gram-positive cocci cultures done at the dialysis center and from October 19. Also positive October 20 with Staphylococcus aureus. IV vancomycin. Dialysis catheter removed October 20 -Acute delirium from sepsis: Some improvement Treat underlying infection -End-stage kidney disease on hemodialysis Sunday and Sunday Nephrology consulted -Anemia of chronic kidney disease Follow H&H -mineral bone disease/CK D Supplements -Hyperphosphatemia secondary to CK D Renvela -Left hip upper thigh pain. Suspect musculoskeletal strain. Doppler ultrasound negative for DVT. X-ray unremarkable. Dr. Stokes from orthopedics consulted IV vancomycin. Dialysis catheter discontinued yesterday. Doppler ultrasound negative for left leg DVT. X-ray of the left hip unremarkable. Orthopedic consulted. Encourage oral intake.
[2021-10-21] MEDS: TORSEMIDE 20 MG TAB PO SCH (17:10)
[2021-10-21] MEDS: SODIUM ZIRCONIUM CYCLOSILICATE 10 GM PACKET PO SCH ×2 (17:11→21:13)
[2021-10-21] MEDS: LORazepam 0.5 MG TAB PO PRN (21:17)
[2021-10-22] MEDS: THIAMINE 100 MG TAB PO SCH ×2 (06:41→17:04)
[2021-10-22] MEDS: SEVELAMER 800 MG TAB PO SCH ×3 (06:43→17:04)
[2021-10-22 08:27] LABS: Calcium 9.5 mg/dL (8.4-10.2); Magnesium 3.2 mg/dL (1.6-2.3); Potassium 5.5 mmol/L (3.5-5.1)
[2021-10-22] MEDS: MULTIVITAMINS, THERA 1 EACH TAB PO SCH (08:44)
[2021-10-22] MEDS: TORSEMIDE 20 MG TAB PO SCH (08:45)
[2021-10-22] MEDS: SODIUM ZIRCONIUM CYCLOSILICATE 10 GM PACKET PO SCH ×2 (08:45→20:45)
[2021-10-22] MEDS: MORPHINE SULFATE 4 MG/ML SYRINGE IVP PRN (08:45)
--- NOTE | 2021-10-22 09:40 | P.PN ---
Subjective Progress Note Date: 10/22/21 The patient feels much better this morning. His hip and leg pain is resolving. He still complains of some mild lower back and posterior buttock pain, but this too is improving. Objective - Vital Signs Vital signs: Vital Signs Temp 98.8 F 10/22/21 08:53 Pulse 129 H 10/22/21 08:53 Resp 16 10/22/21 08:53 BP 181/81 10/22/21 08:53 Pulse Ox 96 10/22/21 08:53 FiO2 Intake & Output 10/21/21 10/22/21 10/22/21 18:59 06:59 18:59 Intake Total 60 240 Output Total 325 Balance -325 60 240 Intake: Oral 60 240 Output: Urine 325 Other: Voiding Method Toilet Toilet Urinal Urinal # Voids 1 - Exam The patient is resting comfortably in his bed. He is in no apparent distress. On inspection of the left leg there is no swelling, erythema, or open wounds. He has minimal to no pain with passive range of motion of the left hip or with logroll. He has some mild tenderness in his calf, but the calf is soft and easily compressible. - Labs CBC & Chem 7: 10/19/21 06:06 10/22/21 07:42 Labs: Abnormal Lab Results - Last 24 Hours (Table) 10/21/21 10/21/21 10/21/21 Range/Units 09:19 09:30 09:30 Sodium 127 L (137-145) mmol/L Potassium 5.4 H (3.5-5.1) mmol/L Chloride 90 L (98-107) mmol/L Carbon Dioxide 20 L (22-30) mmol/L BUN 82 H (9-20) mg/dL Creatinine 9.10 H* (0.66-1.25) mg/dL Glucose (74-99) mg/dL Magnesium (1.6-2.3) mg/dL Urine Protein 2+ H (Negative) Urine Glucose (UA) 1+ H (Negative) Urine Blood Trace H (Negative) Urine Opiates Screen Detected H (NotDetected) U Benzodiazepines Scrn Detected H (NotDetected) U Marijuana (THC) Screen Detected H (NotDetected) 10/22/21 Range/Units 07:42 Sodium 126 L (137-145) mmol/L Potassium 5.5 H (3.5-5.1) mmol/L Chloride 88 L (98-107) mmol/L Carbon Dioxide 19 L (22-30) mmol/L BUN 111 H* (9-20) mg/dL Creatinine 11.58 H* (0.66-1.25) mg/dL Glucose 108 H (74-99) mg/dL Magnesium 3.2 H (1.6-2.3) mg/dL Urine Protein (Negative) Urine Glucose (UA) (Negative) Urine Blood (Negative) Urine Opiates Screen (NotDetected) U Benzodiazepines Scrn (NotDetected) U Marijuana (THC) Screen (NotDetected) Microbiology - Last 24 Hours (Table) 10/21/21 13:50 Blood Culture Gram Stain - Preliminary Blood 10/21/21 13:50 Blood Culture - Final Blood 10/20/21 16:00 Catheter Tip Culture - Preliminary Catheter Tip Presumptive Staph aureus 10/19/21 14:10 Blood Culture Gram Stain - Final Blood Blood Culture - Final Staphylococcus aureus Assessment and Plan Assessment: Resolving left hip and leg pain Low back pain Plan: The pain in the patient's hip and leg seems to be resolving. I do not see any need for further workup with advanced imaging at this time. The patient states that he feels better. I would recommend gentle physical therapy and pain medications per the primary team. If the patient's hip or leg pain returns or worsens I would be happy to reevaluate the patient. In regards to the patient's back pain, he was staffed with Dr. Kelvin Pollock and Jeevan Early PA-C yesterday who requested a lumbar spine x-ray. All management of the patient's back issues are under the care and guidance of Dr. Pollock.
--- NOTE | 2021-10-22 09:58 | P.PN ---
Subjective Progress Note Date: 10/22/21 Principal diagnosis: This is a 26-year-old male with end-stage renal failure on dialysis for the last 2 years, came in with not feeling well during dialysis. Here in the hospital and blood cultures have grown staph aureus bacteremia. He is on vancomycin. His permacath has been removed and he has a nonfunctioning access in his arm. Complains of leg pains no nausea vomiting is cc thirsty and has been taking fair amount of liquids. His sodium is 126 this morning he is on restricted fluid intake. No nausea vomiting no diarrhea no abdominal pain no fever chills cough shortness of breath. Patient states he is making large amounts of urine although this is not documented On examination Gen. 98.8 heart rate 129 blood pressure 181/81. No JVD noted no facial asymmetry Lungs are clear to auscultation good air entry bilaterally Heart sounds unremarkable for any murmur rub gallop Abdomen soft nontender Extreme exam was no edema Neurologically awake alert oriented no asterixis. Last this morning sodium 126 potassium 5.5 chloride 80 bicarb 19 BN is 111 creatinine 7.58 His last hemoglobin is 9 as of 10/19/2021 Impression 1. ESRD on dialysis usually Sunday but here off of dialysis last dialysis was 10/20/2021. 2. Staph bacteremia permacath has been removed. 3. Anemia of ESRD I and replete on Aranesp Recommendation 1. If blood cultures negative at tomorrow we will proceed with reinsertion of a permacath. Also consider peritoneal dialysis as a alternative. 2. Watch potassium 3. Watch for uremic symptoms. 4. He is on torsemide 40 mg. We'll increase it to 80 mg 5. Labs tomorrow BMP and proceed with permacath insertion if cultures are negative Objective - Vital Signs Vital signs: Vital Signs Temp 98.8 F 10/22/21 08:53 Pulse 129 H 10/22/21 08:53 Resp 16 10/22/21 08:53 BP 181/81 10/22/21 08:53 Pulse Ox 96 10/22/21 08:53 FiO2 Intake & Output 10/21/21 10/22/21 10/22/21 18:59 06:59 18:59 Intake Total 60 240 Output Total 325 Balance -325 60 240 Intake: Oral 60 240 Output: Urine 325 Other: Voiding Method Toilet Toilet Urinal Urinal # Voids 1 - Labs CBC & Chem 7: 10/19/21 06:06 10/22/21 07:42 Labs: Abnormal Lab Results - Last 24 Hours (Table) 10/21/21 10/21/21 10/21/21 Range/Units 09:19 09:30 09:30 Sodium 127 L (137-145) mmol/L Potassium 5.4 H (3.5-5.1) mmol/L Chloride 90 L (98-107) mmol/L Carbon Dioxide 20 L (22-30) mmol/L BUN 82 H (9-20) mg/dL Creatinine 9.10 H* (0.66-1.25) mg/dL Glucose (74-99) mg/dL Magnesium (1.6-2.3) mg/dL Urine Protein 2+ H (Negative) Urine Glucose (UA) 1+ H (Negative) Urine Blood Trace H (Negative) Urine Opiates Screen Detected H (NotDetected) U Benzodiazepines Scrn Detected H (NotDetected) U Marijuana (THC) Screen Detected H (NotDetected) 10/22/21 Range/Units 07:42 Sodium 126 L (137-145) mmol/L Potassium 5.5 H (3.5-5.1) mmol/L Chloride 88 L (98-107) mmol/L Carbon Dioxide 19 L (22-30) mmol/L BUN 111 H* (9-20) mg/dL Creatinine 11.58 H* (0.66-1.25) mg/dL Glucose 108 H (74-99) mg/dL Magnesium 3.2 H (1.6-2.3) mg/dL Urine Protein (Negative) Urine Glucose (UA) (Negative) Urine Blood (Negative) Urine Opiates Screen (NotDetected) U Benzodiazepines Scrn (NotDetected) U Marijuana (THC) Screen (NotDetected) Microbiology - Last 24 Hours (Table) 10/21/21 13:50 Blood Culture Gram Stain - Preliminary Blood 10/21/21 13:50 Blood Culture - Final Blood 10/20/21 16:00 Catheter Tip Culture - Preliminary Catheter Tip Presumptive Staph aureus 10/19/21 14:10 Blood Culture Gram Stain - Final Blood Blood Culture - Final Staphylococcus aureus
[2021-10-22] MEDS: ACETAMINOPHEN TAB 325 MG TAB PO PRN (20:45)
[2021-10-22] MEDS: LORazepam 0.5 MG TAB PO PRN (20:48)
--- NOTE | 2021-10-22 21:45 | P.PN ---
Subjective Progress Note Date: 10/22/21 26-year-old patient, follows with Dr. Travis moore. Chronic stable medical conditions include end-stage kidney disease on hemodialysis Sunday and Sunday, essential hypertension, secondary hyperparathyroidism. Patient came in because of not feeling well. Unsteady weak diet and rundown. Unsure about fever. Blood drawn at the nephrology dialysis center was positive for gram- positive cocci. IV vancomycin was given. Patient is slightly delirious. Consultation nephrology denies D was done. Appetite fair denies any respiratory or urinary symptoms. Admitted with sepsis with positive blood culture from the dialysis center, delirium. IV vancomycin started. October 20: Tired. Decreased oral intake. Dialysis catheter to be taken out today. Patient received dialysis yesterday. Discussed with patient. Tired. Repeat blood cultures from yesterday growing staph aureus. October 21: Less delirious today. Dialysis catheter has been removed yesterday. Blood cultures from here growing staph aureus. Patient not hungry. Did not eat his breakfast. Tired. Patient complaining of pain around the left hip area. I ordered Doppler ultrasound that came back to be negative. Hip x-ray was also ordered and came back to be unremarkable. Orthopedics consulted. Objective - Vital Signs Vital signs: Vital Signs Temp 98.7 F 10/22/21 12:53 Pulse 114 H 10/22/21 12:53 Resp 16 10/22/21 12:53 BP 142/75 10/22/21 12:53 Pulse Ox 96 10/22/21 12:53 FiO2 Intake & Output 10/21/21 10/22/21 10/22/21 18:59 06:59 18:59 Intake Total 60 240 Output Total 325 Balance -325 60 240 Intake: Oral 60 240 Output: Urine 325 Other: Voiding Method Toilet Toilet Urinal Urinal # Voids 1 - Exam GENERAL: laying in bed tired. Dialysis catheter removed from the right chest EYES: Pupils equal. Conjunctiva normal. HEENT: External appearance of nose and ears normal, oral cavity grossly normal. NECK: JVD not raised; masses not palpable. HEART: First and second heart sounds are normal; no edema. LUNGS: Respiratory rate normal; clear to auscultation. ABDOMEN: Soft, nontender, liver spleen not palpable, no masses palpable. PSYCH: Answering questions more appropriately MUSCULOSKELETAL:No Clubbing/cyanosis;muscles-grossly intact - Labs CBC & Chem 7: 10/19/21 06:06 10/22/21 07:42 Labs: Abnormal Lab Results - Last 24 Hours (Table) 10/22/21 Range/Units 07:42 Sodium 126 L (137-145) mmol/L Potassium 5.5 H (3.5-5.1) mmol/L Chloride 88 L (98-107) mmol/L Carbon Dioxide 19 L (22-30) mmol/L BUN 111 H* (9-20) mg/dL Creatinine 11.58 H* (0.66-1.25) mg/dL Glucose 108 H (74-99) mg/dL Magnesium 3.2 H (1.6-2.3) mg/dL Microbiology - Last 24 Hours (Table) 10/21/21 13:50 Blood Culture Gram Stain - Preliminary Blood Blood Culture - Preliminary Presumptive Staph aureus 10/21/21 13:50 Blood Culture - Final Blood 10/20/21 16:00 Catheter Tip Culture - Preliminary Catheter Tip Presumptive Staph aureus 10/19/21 14:10 Blood Culture Gram Stain - Final Blood Blood Culture - Final Staphylococcus aureus Assessment and Plan Assessment: 1. Sepsis with blood cultures positive for gram-positive cocci cultures done at the dialysis center and from October 19. Also positive October 20 with Staphylococcus aureus. IV vancomycin. Dialysis catheter removed October 20 2. Acute delirium from sepsis: Some improvement Treat underlying infection 3. End-stage kidney disease on hemodialysis Sunday and Sunday Nephrology consulted 4. Anemia of chronic kidney disease Follow H&H 5. Chronic kidney disease Supplements -- Hyperphosphatemia secondary to CK D Renvela 6. Left hip upper thigh pain. Suspect musculoskeletal strain. Doppler ultrasound negative for DVT. X-ray unremarkable. Dr. Stokes from orthopedics consulted
--- NOTE | 2021-10-22 22:41 | P.PN ---
Subjective Progress Note Date: 10/21/21 Principal diagnosis: Bacteremia Patient is a 26 year male with a past medical history significant for end-stage renal disease on hemodialysis presented to hospital with sepsis and bacteremia secondary to dialysis catheter infection which was removed the evening of 10/20/2021. On today's evaluation that is 10/21/2021, the patient did spike a fever of 102 F and has been complaining of rigors and chills, the patient denies having any chest pain or shortness of breath or cough no abdominal pain or diarrhea Objective - Vital Signs Vital signs: Vital Signs Temp 98.4 F 10/21/21 08:00 Pulse 125 H 10/21/21 08:00 Resp 18 10/21/21 08:00 BP 159/73 10/21/21 08:00 Pulse Ox 95 10/21/21 08:00 FiO2 Intake & Output 10/20/21 10/21/21 10/21/21 18:59 06:59 18:59 Intake Total 1248 160 Output Total 1999 200 Balance -752 -40 Weight 62 kg 72.5 kg Intake: IV 160 0.9 160 Oral 948 Hemodialysis 300 Output: Urine 200 Hemodialysis 2000 Other: Voiding Method Toilet Toilet Toilet Urinal Urinal Urinal # Voids 0 - Exam GENERAL DESCRIPTION: Young male lying in bed in no distress RESPIRATORY SYSTEM: Unlabored breathing , decreased breath sounds at bases HEART: S1 S2 regular rate and rhythm , ABDOMEN: Soft , no tenderness EXTREMITIES: No edema feet - Labs CBC & Chem 7: 10/19/21 06:06 10/22/21 07:42 Labs: Abnormal Lab Results - Last 24 Hours (Table) 10/21/21 10/21/21 10/21/21 Range/Units 09:19 09:30 09:30 Sodium 127 L (137-145) mmol/L Potassium 5.4 H (3.5-5.1) mmol/L Chloride 90 L (98-107) mmol/L Carbon Dioxide 20 L (22-30) mmol/L BUN 82 H (9-20) mg/dL Creatinine 9.10 H* (0.66-1.25) mg/dL Urine Protein 2+ H (Negative) Urine Glucose (UA) 1+ H (Negative) Urine Blood Trace H (Negative) Urine Opiates Screen Detected H (NotDetected) U Benzodiazepines Scrn Detected H (NotDetected) U Marijuana (THC) Screen Detected H (NotDetected) Microbiology - Last 24 Hours (Table) 10/20/21 16:00 Catheter Tip Culture - Preliminary Catheter Tip 10/19/21 14:10 Blood Culture Gram Stain - Preliminary Blood Assessment and Plan (1) Positive blood culture Current Visit: No Status: Acute Code(s): R78.81 - BACTEREMIA SNOMED Code(s): 478739819 Plan: 1patient presented to hospital with sepsis source is likely dialysis catheter infection in this patient who did have a staphylococcal bacteremia with se nsitivities pending. 2the patient dialysis catheter has been removed and tip has been sent for the culture 3patient blood cultures will be repeated document clearance of bacteremia and the patient to continue with the vancomycin monitor clinical course closely Time with Patient: Less than 30
--- NOTE | 2021-10-22 22:42 | P.PN ---
Subjective Progress Note Date: 10/22/21 Principal diagnosis: Bacteremia Patient is a 26 year male with a past medical history significant for end-stage renal disease on hemodialysis presented to hospital with sepsis and bacteremia secondary to dialysis catheter infection which was removed the evening of 10/20/2021. On today's evaluation that is 10/22/2021, the patient is afebrile today, the patient denies having any chest pain or shortness of breath or cough no abdominal pain or diarrhea Objective - Vital Signs Vital signs: Vital Signs Temp 98.8 F 10/22/21 08:53 Pulse 129 H 10/22/21 08:53 Resp 16 10/22/21 08:53 BP 181/81 10/22/21 08:53 Pulse Ox 96 10/22/21 08:53 FiO2 Intake & Output 10/21/21 10/22/21 10/22/21 18:59 06:59 18:59 Intake Total 60 240 Output Total 325 Balance -325 60 240 Intake: Oral 60 240 Output: Urine 325 Other: Voiding Method Toilet Toilet Urinal Urinal # Voids 1 - Exam GENERAL DESCRIPTION: Young male lying in bed in no distress RESPIRATORY SYSTEM: Unlabored breathing , decreased breath sounds at bases HEART: S1 S2 regular rate and rhythm , ABDOMEN: Soft , no tenderness EXTREMITIES: No edema feet - Labs CBC & Chem 7: 10/19/21 06:06 10/22/21 07:42 Labs: Abnormal Lab Results - Last 24 Hours (Table) 10/22/21 Range/Units 07:42 Sodium 126 L (137-145) mmol/L Potassium 5.5 H (3.5-5.1) mmol/L Chloride 88 L (98-107) mmol/L Carbon Dioxide 19 L (22-30) mmol/L BUN 111 H* (9-20) mg/dL Creatinine 11.58 H* (0.66-1.25) mg/dL Glucose 108 H (74-99) mg/dL Magnesium 3.2 H (1.6-2.3) mg/dL Microbiology - Last 24 Hours (Table) 10/21/21 13:50 Blood Culture Gram Stain - Preliminary Blood 10/21/21 13:50 Blood Culture - Final Blood 10/20/21 16:00 Catheter Tip Culture - Preliminary Catheter Tip Presumptive Staph aureus 10/19/21 14:10 Blood Culture Gram Stain - Final Blood Blood Culture - Final Staphylococcus aureus Assessment and Plan (1) Positive blood culture Current Visit: No Status: Acute Code(s): R78.81 - BACTEREMIA SNOMED Code(s): 343125386 Plan: 1patient presented to hospital with sepsis source is likely dialysis catheter infection in this patient who did have a staphylococcal bacteremia which has been finalized as MSSA 2the patient dialysis catheter has been removed and tip has been sent for the culture 3we will discontinue the vancomycin and start the patient on cefazolin and follow-up on the repeat blood cultures Time with Patient: Less than 30
[2021-10-23] MEDS: THIAMINE 100 MG TAB PO SCH ×2 (06:41→17:22)
[2021-10-23] MEDS: SEVELAMER 800 MG TAB PO SCH ×3 (06:41→17:23)
[2021-10-23 08:14] LABS: Calcium 8.9 mg/dL (8.4-10.2); Potassium 5.9 mmol/L (3.5-5.1)
[2021-10-23] MEDS: MULTIVITAMINS, THERA 1 EACH TAB PO SCH (08:46)
[2021-10-23] MEDS: TORSEMIDE 20 MG TAB PO SCH (08:47)
[2021-10-23] MEDS ORDERED: VANCOMYCIN 1,250 MG in SODIUM CHLORIDE 0.9% 250 ML IVPB ONE (09:00)
--- NOTE | 2021-10-23 10:21 | P.PN ---
Subjective Progress Note Date: 10/23/21 Principal diagnosis: This is a 26-year-old male with end-stage renal failure on dialysis for the last 2 years, came in with not feeling well during dialysis. Here in the hospital and blood cultures have grown staph aureus bacteremia. He is on vancomycin. His permacath has been removed and he has a nonfunctioning access in his arm. His blood cultures drawn as of yesterday 10/22/2021 has been reported to be positive this morning already. His complaining of leg pains no nausea vomiting no shortness of breath. His sodium though came down further to 123 from 126 yesterday. Complains of leg pains no nausea vomiting is cc thirsty and has been taking fair amount of liquids. No nausea vomiting no diarrhea no abdominal pain no fever chills cough shortness of breath. Patient states he is making large amounts of urine although this is not documented On examination Somewhat anxious looking Blood pressure 169/98 heart rate 111 2098.4 Output is documented 150 mL only an intake at 270 which is obviously not correct No JVD noted no facial asymmetry Lungs are clear to auscultation good air entry bilaterally Heart sounds unremarkable for any murmur rub gallop Abdomen soft nontender Extreme exam was no edema Neurologically awake alert oriented no asterixis. Labs this morning Sodium 123 potassium 5.9 chloride 86, bicarb 18 anion gap 19 BUN 142 creatinine 13.1. Impression 1. ESRD on dialysis usually Sunday but here off of dialysis last dialysis was 10/20/2021. 2. Staph bacteremia permacath has been removed. Persistent bacteremia blood cultures drawn 10/22/21 reported positive and September. 3. Anemia of ESRD and iron replete on Aranesp 4. Hyponatremia and hyperkalemia secondary to ESRD 5. Anion gap acidosis secondary to ESRD Recommendation 1. Because of the hyponatremia which is worsening and proceed with placement of a Angel catheter and dialyze him today and tomorrow then the catheter will be removed. When blood cultures turned negative, will proceed with permacath insertion and also discussed the possibility of peritoneal dialysis 2. Watch potassium 3. Watch for uremic symptoms. 4. He is on torsemide 80 mg 5. Repeat blood cultures tomorrow Objective - Vital Signs Vital signs: Vital Signs Temp 98.4 F 10/23/21 04:00 Pulse 111 H 10/23/21 04:00 Resp 17 10/23/21 04:00 BP 169/98 10/23/21 04:00 Pulse Ox 98 10/23/21 04:00 FiO2 Intake & Output 10/22/21 10/23/21 10/23/21 18:59 06:59 18:59 Intake Total 240 30 0 Output Total 150 Balance 240 -120 0 Intake: Oral 240 30 0 Output: Urine 150 Other: Voiding Method Toilet Toilet Urinal Urinal # Voids 1 1 - Labs CBC & Chem 7: 10/19/21 06:06 10/23/21 07:47 Labs: Abnormal Lab Results - Last 24 Hours (Table) 10/23/21 Range/Units 07:47 Sodium 123 L (137-145) mmol/L Potassium 5.9 H (3.5-5.1) mmol/L Chloride 86 L (98-107) mmol/L Carbon Dioxide 18 L (22-30) mmol/L BUN 142 H* (9-20) mg/dL Creatinine 13.17 H* (0.66-1.25) mg/dL Microbiology - Last 24 Hours (Table) 10/22/21 12:22 Blood Culture Gram Stain - Preliminary Blood 10/22/21 12:22 Blood Culture - Final Blood 10/20/21 16:00 Catheter Tip Culture - Final Catheter Tip Staphylococcus aureus 10/21/21 13:50 Blood Culture Gram Stain - Preliminary Blood Blood Culture - Preliminary Presumptive Staph aureus 10/21/21 13:50 Blood Culture - Final Blood
[2021-10-23] MEDS ORDERED: IV FLUID CONTINUATION 1,000 ML IV ONE (11:41)
[2021-10-23] MEDS ORDERED: MIDAZOLAM 2 MG/2 ML VIAL IVP ONE (12:10)
[2021-10-23] MEDS ORDERED: fentaNYL (PF) 50 MCG/ML 2 ML AMP IVP ONE (12:10)
[2021-10-23] MEDS ORDERED: LIDOCAINE 1% INJ 10MG/ML (20 ML MDV) SQ ONE (12:13)
--- NOTE | 2021-10-23 13:01 | OP ---
OPERATIVE REPORT PREOPERATIVE DIAGNOSIS: 1. Acute and chronic renal failure. 2. Low sodium. PROCEDURE PERFORMED: Ultrasound-guided placement of 20 cm dialysis catheter via right femoral approach. PROCEDURE DESCRIPTION: The patient was brought to the laborer [facility] [employer] [facility]. Right groin was prepped, and drapes were applied in a sterile manner. Lidocaine 1% was infiltrated in the groin area. Ultrasound-guided micropuncture was introduced into the right femoral vein. Micropuncture guidewire was passed and 4-Turkmen dilator advanced on top of the guidewire. Then we passed a regular guidewire without any resistance. Dilator was advanced and then we placed a 20 cm dialysis catheter on top of the guidewire, flushed with heparin saline and hep-locked, secured with 3-0 nylon. Dressing was applied. Patient tolerated the procedure well. Patient was transferred from the room in satisfactory condition. EDMUNDO / TORITO: [id number] /
--- NOTE | 2021-10-23 16:14 | P.PN ---
Subjective Progress Note Date: 10/23/21 Principal diagnosis: Sepsis with blood cultures positive for gram-positive cocci Acute delirium from sepsis End-stage kidney disease on hemodialysis 26-year-old patient, follows with Dr. Travis moore. Chronic stable medical conditions include end-stage kidney disease on hemodialysis Sunday and Sunday, essential hypertension, secondary hyperparathyroidism. Patient came in because of not feeling well. Unsteady weak diet and rundown. Unsure about fever. Blood drawn at the nephrology dialysis center was positive for gram- positive cocci. IV vancomycin was given. Patient is slightly delirious. Consultation nephrology denies D was done. Appetite fair denies any respiratory or urinary symptoms. Admitted with sepsis with positive blood culture from the dialysis center, delirium. IV vancomycin started. October 20: Tired. Decreased oral intake. Dialysis catheter to be taken out today. Patient received dialysis yesterday. Discussed with patient. Tired. Repeat blood cultures from yesterday growing staph aureus. October 21: Less delirious today. Dialysis catheter has been removed yesterday. Blood cultures from here growing staph aureus. Patient not hungry. Did not eat his breakfast. Tired. Patient complaining of pain around the left hip area. I ordered Doppler ultrasound that came back to be negative. Hip x-ray was also ordered and came back to be unremarkable. Orthopedics consulted. 10/23/2021 Patient is seen and evaluated in room at bedside; patient complains of generalized pain more so in Lasix; no complaint of chest pain or shortness of breath Vital signs are reviewed; blood pressure 169/98, pulse 111 Lab review shows a sodium of 123 which is down from 126 yesterday, potassium 5 .9, bicarbonate 18, BUN/creatinine of 142/13.1 Repeat blood cultures drawn yesterday are reported positive; plan was to reinsert permacath if blood cultures were negative; nephrology recommending to p yvonne with placement of Angel catheter and dialyze the patient today and tomorrow due to worsening hyponatremia with plans to remove catheter after dialysis; patient will have a permacath placement once her cultures turn negative with possibility of paratonia dialysis in the meantime Objective - Vital Signs Vital signs: Vital Signs Temp 98.6 F 10/23/21 09:30 Pulse 110 H 10/23/21 09:30 Resp 16 10/23/21 09:30 BP 179/79 10/23/21 09:30 Pulse Ox 95 10/23/21 09:30 FiO2 Intake & Output 10/22/21 10/23/21 10/23/21 18:59 06:59 18:59 Intake Total 240 30 20 Output Total 150 Balance 240 -120 20 Intake: IV 20 Oral 240 30 0 Output: Urine 150 Other: Voiding Method Toilet Toilet Toilet Urinal Urinal Urinal # Voids 1 1 - Exam GENERAL: laying in bed tired. Dialysis catheter removed from the right chest EYES: Pupils equal. Conjunctiva normal. HEENT: External appearance of nose and ears normal, oral cavity grossly normal. NECK: JVD not raised; masses not palpable. HEART: First and second heart sounds are normal; no edema. LUNGS: Respiratory rate normal; clear to auscultation. ABDOMEN: Soft, nontender, liver spleen not palpable, no masses palpable. PSYCH: Answering questions more appropriately MUSCULOSKELETAL:No Clubbing/cyanosis;muscles-grossly intact - Labs CBC & Chem 7: 10/19/21 06:06 10/23/21 07:47 Labs: Abnormal Lab Results - Last 24 Hours (Table) 10/23/21 Range/Units 07:47 Sodium 123 L (137-145) mmol/L Potassium 5.9 H (3.5-5.1) mmol/L Chloride 86 L (98-107) mmol/L Carbon Dioxide 18 L (22-30) mmol/L BUN 142 H* (9-20) mg/dL Creatinine 13.17 H* (0.66-1.25) mg/dL Microbiology - Last 24 Hours (Table) 10/21/21 13:50 Blood Culture Gram Stain - Final Blood Blood Culture - Final Staphylococcus aureus 10/22/21 12:22 Blood Culture Gram Stain - Preliminary Blood 10/22/21 12:22 Blood Culture - Final Blood 10/20/21 16:00 Catheter Tip Culture - Final Catheter Tip Staphylococcus aureus Assessment and Plan Assessment: 1. Sepsis with blood cultures positive for gram-positive cocci cultures done at the dialysis center and from October 19. Also positive October 20 with Staphylococcus aureus. IV vancomycin. Dialysis catheter removed October 20 2. Acute delirium from sepsis: Some improvement Treat underlying infection 3. End-stage kidney disease on hemodialysis Sunday and Sunday Nephrology consulted 4. Anemia of chronic kidney disease Follow H&H 5. Chronic kidney disease Supplements -- Hyperphosphatemia secondary to CK D Renvela 6. Left hip upper thigh pain. Suspect musculoskeletal strain. Doppler ultrasound negative for DVT. X-ray unremarkable. Dr. Stokes from orthopedics consulted
[2021-10-23] MEDS: MORPHINE SULFATE 4 MG/ML SYRINGE IVP PRN (20:55)
[2021-10-24] MEDS: LORazepam 0.5 MG TAB PO PRN (00:02)
[2021-10-24] MEDS: ACETAMINOPHEN TAB 325 MG TAB PO PRN ×2 (01:01→23:05)
[2021-10-24] MEDS: SEVELAMER 800 MG TAB PO SCH ×3 (06:23→16:38)
[2021-10-24] MEDS: THIAMINE 100 MG TAB PO SCH ×2 (06:23→16:38)
[2021-10-24] MEDS: MORPHINE SULFATE 4 MG/ML SYRINGE IVP PRN ×3 (08:39→22:54)
[2021-10-24] MEDS: MULTIVITAMINS, THERA 1 EACH TAB PO SCH (08:40)
[2021-10-24] MEDS: TORSEMIDE 20 MG TAB PO SCH (08:40)
--- NOTE | 2021-10-24 08:49 | US ---
EXAMINATION TYPE: US venous doppler duplex LE BI DATE OF EXAM: 10/24/2021 7:50 AM COMPARISON: 10/21/2021 CLINICAL HISTORY: left leg swelling increased. Lt leg swelling x approx 21 days, getting increasingly worse. Pain in left leg and pt unable to move it. SIDE PERFORMED: Bilateral TECHNIQUE: The lower extremity deep venous system is examined utilizing real time linear array sonog bronson with graded compression, doppler sonography and color-flow sonography. VESSELS IMAGED: Common Femoral Vein Deep Femoral Vein Greater Saphenous Vein * Femoral Vein Popliteal Vein Small Saphenous Vein * Proximal Calf Veins (* superficial vessels) Right Leg: Negative for DVT Left Leg: Limited visualization of left popliteal vein due to patient not being able to bend leg. Co pily and blood flow visualized. Complex area seen in left medial calf measuring 6.1 x 2.8 x 2.7 cm of unknown etiology. This was not present on 10/21/2021 comparison. IMPRESSION: 1. Limited left lower extremity ultrasound due to patient condition. No obvious deep venous thrombosi s on the left is evident. 2. There is a complex 6 x 3 x 3 cm area of mixed echogenicity within the left calf. Hematoma should b e considered. Consider additional workup. 3. Right lower extremity ultrasound negative for deep venous thrombosis
--- NOTE | 2021-10-24 08:50 | IR ---
EXAMINATION TYPE: IR cvc insert non tunneled DATE OF EXAM: 10/23/2021 COMPARISON: NONE HISTORY: Fluoroscopy time. Fluoroscopy was provided to the referring clinician.
--- NOTE | 2021-10-24 09:26 | P.PN ---
Subjective Patient is seen for follow-up for end-stage renal disease and the underlying bacteremia. Patient's blood cultures are growing staph aureus, MSSA. Blood cultures have been persistently positive. IJ permacath has been discontinued. Patient currently has a right femoral catheter. He was dialyzed yesterday 10/23/2021 and patient is scheduled for hemodialysis again today. Patient is complaining of pain in his left knee and foot. He is not able to move his left leg much due to pain. Objective - Vital Signs Vital signs: Vital Signs Temp 98 F 10/24/21 08:00 Pulse 113 H 10/24/21 08:00 Resp 18 10/24/21 08:00 BP 188/84 10/24/21 08:00 Pulse Ox 96 10/24/21 08:00 FiO2 Intake & Output 10/23/21 10/24/21 10/24/21 18:59 06:59 18:59 Intake Total 320 0 Output Total 3000 350 Balance -2680 -350 0 Intake: IV 20 Oral 0 0 Hemodialysis 300 Output: Urine 0 350 Stool 0 Urine/Stool Mix 0 Hemodialysis 3000 Other: Voiding Method Toilet Toilet Urinal Urinal # Voids 0 1 # Bowel Movements 0 - Exam Awake, comfortable, not in any acute distress Alert oriented 3 Examination of the heart S1 and S2 Examination lungs bilateral breath sounds are heard Abdomen is soft nontender Exertion lower extremity shows edema left knee with the knee effusion and tenderness. Left foot also appears edematous and tender MATERIAL MOVER exam grossly intact. Left leg mobility decreased secondary to pain and swelling - Labs CBC & Chem 7: 10/19/21 06:06 10/23/21 07:47 Labs: Microbiology - Last 24 Hours (Table) 10/21/21 13:50 Blood Culture Gram Stain - Final Blood Blood Culture - Final Staphylococcus aureus 10/22/21 12:22 Blood Culture Gram Stain - Preliminary Blood Assessment and Plan Assessment: 1. End-stage renal disease on hemodialysis on a Sunday schedule. IJ permacath has been removed 2. MSSA bacteremia which is persistent. Status post removal of IJ permacath and placement of temporary femoral catheter on 10/23/2021 with plans for removal today after second treatment of hemodialysis. 3. Hyperkalemia associated with end-stage renal disease, expect improvement with dialysis 4. Hyponatremia associated with end-stage renal disease expect improvement post dialysis Plan: Repeat hemodialysis today Check labs 1 more treatment of hemodialysis tomorrow and then remove temporary femoral catheter
[2021-10-24 12:33] VITALS: BMI 20.5
--- NOTE | 2021-10-24 15:23 | P.PN ---
Subjective Progress Note Date: 10/24/21 This patient is a 26- year old male who orthopedics is following in regards to left lower extremity pain. Patient was last evaluated by Dr. Stokes on 10/22/21 and patient felt his left hip and thigh pain had improved and he was doing well. Dr. Stokes was contacted by nursing early this morning with concerns there was increasing swelling and pain in the left thigh. MRI of the left lower extremity was ordered. Patient is examined bedside this afternoon. Patient states the pain has worsened and is currently localizes to the inner left thigh. Nursing is taking patient down to MRI at the time of my exam. Objective - Vital Signs Vital signs: Vital Signs Temp 97.9 F 10/24/21 12:00 Pulse 108 H 10/24/21 12:00 Resp 18 10/24/21 12:00 BP 140/78 10/24/21 13:54 Pulse Ox 97 10/24/21 12:00 FiO2 Intake & Output 10/23/21 10/24/21 10/24/21 18:59 06:59 18:59 Intake Total 320 0 Output Total 3000 350 3000 Balance -2680 -350 -3000 Weight 72.5 kg Intake: IV 20 Oral 0 0 Hemodialysis 300 Output: Urine 0 350 Stool 0 Urine/Stool Mix 0 Hemodialysis 3000 3000 Other: Voiding Method Toilet Toilet Urinal Urinal # Voids 0 1 # Bowel Movements 0 - Exam On examination, patient is sitting up in bed in no apparent distress. He is alert and oriented 3. On inspection of the left thigh, there is mild swelling. No overlying erythema, warmth. No fluctuance appreciated. Mild pain with PROM and logrolling of the hip. Motor and sensory function intact LLE. Dorsalis pedis pulse easily palpable. - Labs CBC & Chem 7: 10/19/21 06:06 10/23/21 07:47 Labs: Microbiology - Last 24 Hours (Table) 10/22/21 12:22 Blood Culture Gram Stain - Preliminary Blood Blood Culture - Preliminary Presumptive Staph aureus 10/19/21 19:30 Blood Culture Gram Stain - Final Blood Blood Culture - Final Staphylococcus aureus 10/23/21 07:47 Blood Culture - Preliminary Blood No Growth after 24 hours 10/21/21 13:50 Blood Culture Gram Stain - Final Blood Blood Culture - Final Staphylococcus aureus Assessment and Plan Assessment: Left hip and thigh pain Plan: - Will await MRI results for further treatment recommendations in regards to patient's worsening left hip and thigh pain.
--- NOTE | 2021-10-24 15:25 | P.PN ---
Subjective Progress Note Date: 10/24/21 Sepsis with blood cultures positive for gram-positive cocci Acute delirium from sepsis End-stage kidney disease on hemodialysis 26-year-old patient, follows with Dr. Travis moore. Chronic stable medical conditions include end-stage kidney disease on hemodialysis Sunday and Sunday, essential hypertension, secondary hyperparathyroidism. Patient came in because of not feeling well. Unsteady weak diet and rundown. Unsure about fever. Blood drawn at the nephrology dialysis center was positive for gram- positive cocci. IV vancomycin was given. Patient is slightly delirious. Consultation nephrology denies D was done. Appetite fair denies any respiratory or urinary symptoms. Admitted with sepsis with positive blood culture from the dialysis center, delirium. IV vancomycin started. October 20: Tired. Decreased oral intake. Dialysis catheter to be taken out today. Patient received dialysis yesterday. Discussed with patient. Tired. Repeat blood cultures from yesterday growing staph aureus. October 21: Less delirious today. Dialysis catheter has been removed yesterday. Blood cultures from here growing staph aureus. Patient not hungry. Did not eat his breakfast. Tired. Patient complaining of pain around the left hip area. I ordered Doppler ultrasound that came back to be negative. Hip x-ray was also ordered and came back to be unremarkable. Orthopedics consulted. 10/23/2021 Patient is seen and evaluated in room at bedside; patient complains of generalized pain more so in Lasix; no complaint of chest pain or shortness of breath Vital signs are reviewed; blood pressure 169/98, pulse 111 Lab review shows a sodium of 123 which is down from 126 yesterday, potassium 5.9, bicarbonate 18, BUN/creatinine of 142/13.1 Repeat blood cultures drawn yesterday are reported positive; plan was to reinsert permacath if blood cultures were negative; nephrology recommending to proceed with placement of Angel catheter and dialyze the patient today and tomorrow due to worsening hyponatremia with plans to remove catheter after dialysis; patient will have a permacath placement once her cultures turn negative with possibility of paratonia dialysis in the meantime 10/24/2021 Patient is seen in follow-up this morning currently receiving hemodialysis. Multiple medical consultations including nephrology and infectious disease following. Blood cultures and catheter tip culture showing staph aureus and awaiting for bacteremia clearance. Patient will also need replacement dialysis catheter once cleared by infectious disease. Patient is currently maintained on 1500 mL fluid restrictions and will slightly increase as patient reports he is thirsty and not getting enough intake. Patient is currently afebrile and denies any chest pain or palpitations. Review of systems: Constitutional: No reports of fatigue, fever, or chills Cardiovascular: No reports of chest pain or palpitations Respiratory: No reports of shortness of breath or cough GI: No reports of nausea, vomiting, or diarrhea : No reports of dysuria or retention Neurovascular: reports of generalized weakness reports left knee and foot pain All medications have been reviewed Active Medications Acetaminophen (Acetaminophen Tab 325 Mg Tab) 650 mg PO Q4HR PRN PRN Reason: Fever and/ or Pain Last Admin: 10/24/21 01:01 Dose: 650 mg Darbepoetin Luis E (Darbepoetin Luis E 40 Mcg/0.4 Ml Syringe) 40 mcg SQ Q7D [facility] Last Admin: 10/19/21 13:37 Dose: 40 mcg Cefazolin Sodium 1,000 mg/ (Sodium Chloride) 50 mls @ 100 mls/hr IVPB Q24H [facility] Last Admin: 10/23/21 20:54 Dose: 100 mls/hr Lorazepam (Lorazepam 0.5 Mg Tab) 0.5 mg PO Q6HR PRN PRN Reason: Anxiety Last Admin: 10/24/21 00:02 Dose: 0.5 mg Lorazepam (Lorazepam 1 Mg Tab) 1 mg PO Q2HR PRN PRN Reason: CIWA 8 or 9 Lorazepam (Lorazepam 1 Mg Tab) 1 mg PO Q1HR PRN PRN Reason: CIWA 10 to 15 Lorazepam (Lorazepam 1 Mg Tab) 2 mg PO Q10M PRN PRN Reason: CIWA 16 or higher Stop: 10/27/21 12:01 Morphine Sulfate (Morphine Sulfate 4 Mg/Ml Syringe) 4 mg IVP Q4HR PRN PRN Reason: Pain Last Admin: 10/24/21 14:20 Dose: 4 mg Multivitamins (Multivitamins, Thera 1 Each Tab) 1 each PO DAILY [facility] Last Admin: 10/24/21 08:40 Dose: 1 each Naloxone HCl (Naloxone 0.4 Mg/Ml 1 Ml Vial) 0.2 mg IV Q2M PRN PRN Reason: Opioid Reversal Sevelamer Carbonate (Sevelamer 800 Mg Tab) 1,600 mg PO TID-W/MEALS [facility] Last Admin: 10/24/21 12:49 Dose: Not Given Thiamine HCl (Thiamine 100 Mg Tab) 100 mg PO BID-W/MEALS [facility] Last Admin: 10/24/21 06:23 Dose: 100 mg Torsemide (Torsemide 20 Mg Tab) 80 mg PO DAILY [facility] Last Admin: 10/24/21 08:40 Dose: 80 mg Physical exam: Gen: This is a 26-year-old male awake, alert and oriented 3, thin built HEENT: Head is atraumatic, normocephalic. Pupils equal, round. Sclerae is anicteric. NECK: Supple. No JVD. No lymphadenopathy. No thyromegaly. LUNGS: Diminished breath sounds bilaterally with some scattered rhonchi and crackles noted. No intercostal retractions. HEART: S1, S2 are muffled ABDOMEN: Soft. Bowel sounds are present. No masses. No tenderness. EXTREMITIES: No pedal edema. No calf tenderness. NEUROLOGICAL: Patient is awake, alert and oriented x3. Cranial nerves 2 through 12 are grossly intact. Assessment: Sepsis with positive blood cultures showing gram-positive cocci and growing staph aureus from the dialysis center Status post dialysis catheter removal Acute delirium from sepsis, improved End-stage renal disease on hemodialysis Sunday/Sunday/Sunday Anemia of chronic disease Chronic kidney disease Left hip and upper thigh pain possibly musculoskeletal strain, Doppler ultrasound was negative for DVT GI prophylaxis DVT prophylaxis Full code with no mechanical ventilation Plan: Patient is currently maintained on hemodialysis and will continue on Sunday/Sunday/Sunday with nephrology following closely Disease also following and patient is maintained on IV antibiotics in the form of cefazolin while awaiting for cultures to finalized. Most recent repeat blood cultures have been negative and previous culture showing staph aureus Recommend continue with 2000 mL fluid restriction and close monitoring of intake and output Recommend resuming appropriate home medications Will need to discuss further with infectious disease about discharge planning of continued antibiotic therapy and if requiring IV antibiotic therapy or an receive with hemodialysis, patient will also require a new dialysis catheter p lacement as he currently has a temporary one Due to multiple complex medical issues, prognosis is guarded The impression and plan of care has been dictated by Vee Honeycutt Nurse Pra ctitioner as directed. Dr. Elder MD I have performed a history and examination and MDM of this patient, discussed the same with the dictator, and agree with the dictator's assessment and plan as written ,documented as a scribe. Based on total visit time, I have performed more than 50% of the visit. Objective - Vital Signs Vital signs: Vital Signs Temp 97.9 F 10/24/21 12:00 Pulse 108 H 10/24/21 12:00 Resp 18 10/24/21 12:00 BP 159/64 10/24/21 12:00 Pulse Ox 97 10/24/21 12:00 FiO2 Intake & Output 10/23/21 10/24/21 10/24/21 18:59 06:59 18:59 Intake Total 320 0 Output Total 3000 350 Balance -2680 -350 0 Weight 72.5 kg Intake: IV 20 Oral 0 0 Hemodialysis 300 Output: Urine 0 350 Stool 0 Urine/Stool Mix 0 Hemodialysis 3000 Other: Voiding Method Toilet Toilet Urinal Urinal # Voids 0 1 # Bowel Movements 0 - Labs CBC & Chem 7: 10/19/21 06:06 10/23/21 07:47 Labs: Microbiology - Last 24 Hours (Table) 10/22/21 12:22 Blood Culture Gram Stain - Preliminary Blood Blood Culture - Preliminary Presumptive Staph aureus 10/19/21 19:30 Blood Culture Gram Stain - Final Blood Blood Culture - Final Staphylococcus aureus 10/23/21 07:47 Blood Culture - Preliminary Blood No Growth after 24 hours 10/21/21 13:50 Blood Culture Gram Stain - Final Blood Blood Culture - Final Staphylococcus aureus
[2021-10-24 17:12] LABS: Anisocytosis Slight; Basophils # (A) 0.1 k/uL (0-0.2); Basophils % (A) 1 %; Eosinophils # (A) 0.1 k/uL (0-0.7); Eosinophils % (A) 1 %; HCT 22.1 % (39.0-53.0); Hypochromasia Slight; Lymphocytes # (A) 0.9 k/uL (1.0-4.8); Lymphocytes % (A) 8 %; MCH 30.1 pg (25.0-35.0); MCHC 31.5 g/dL (31.0-37.0); MCV 95.5 fL (80.0-100.0); Mean Platelet Volume 7.7; Monocytes # (A) 0.4 k/uL (0-1.0); Monocytes % (A) 4 %; Neutrophils % (A) 85 %; Platelet Count 309 k/uL (150-450); RBC 2.31 m/uL (4.30-5.90); RDW 17.1 % (11.5-15.5); WBC 10.7 k/uL (3.8-10.6)
[2021-10-24 17:29] LABS: Calcium 8.3 mg/dL (8.4-10.2); Potassium 4.5 mmol/L (3.5-5.1)
--- NOTE | 2021-10-24 17:43 | P.PN ---
Progress Note - Text Progress Note Date: 10/24/21 The patient was reevaluated today due to increased swelling and pain throughout the left leg. He didn't previously seen on Sunday and Sunday. On Sunday he had had significant improvement in his pain and had no pain with passive range of motion of the hip or the leg. Yesterday in the afternoon he developed increased pain and swelling in the left leg. MRIs were ordered of the hip and lower leg. This afternoon he had increased pain in the thigh, knee, calf, and ankle. The left leg is diffusely swollen. There are effusions in the knee and ankle both of which were aspirated. The fluid was sent for cell count with differential, crystal analysis, and cultures. If this comes back concerning for infection he will need irrigation and debridement of the knee and ankle. His hip also had an effusion on MRI. If the fluid from the knee and ankle comes back positive for infection I would also wash out his hip. An MRI was ordered this morning of his calf and ankle, but was not taken. I would like an MRI of the ankle and calf to rule out deep space infection outside of the joint. We will make him nothing by mouth in case he needs irrigation and debridement tomorrow. Procedure verbal consent for a left knee aspiration was obtained. Using sterile technique the superolateral portal is entered with an 18-gauge needle and 20 mL's of cloudy yellow fluid was aspirated. The needle was withdrawn and a Band- Aid was applied. The fluid was then transferred to Vacutainer tubes and labeled. The anteromedial aspect of the left ankle was prepped out with ChloraPrep and using sterile technique an 18-gauge needle was inserted into the ankle joint and 10 mL's of cloudy yellow fluid was aspirated. This was then transferred to Vacutainer tubes and labeled. The patient tolerated this well.
[2021-10-24 17:49] LABS: C Reactive Protein 21.1 mg/dL (<1.0)
--- NOTE | 2021-10-24 18:03 | MR ---
EXAMINATION TYPE: MR knee LT wo con DATE OF EXAM: 10/24/2021 COMPARISON: None HISTORY: Left leg pain/swelling, renal failure, hyperkalemia. Multiplanar multiecho imaging of the left knee with no contrast. The anterior and posterior cruciate ligaments are intact. There is a very large knee joint effusion. There is subcutaneous edema around the knee. The collateral ligaments are intact. There is partial visualization of a complex mass containing fluid in the upper calf. This measures 4 cm in anterior posterior dimension. This could be intramuscular hematoma. The medial and lateral menisci show no evidence of any significant tear. There is no evidence of a fr acture. There is elongated 2.4 cm area of decreased signal in the medial cortex of the proximal tibi al metaphysis. This could be fibrous cortical defect. IMPRESSION: Very large knee joint effusion consistent with some nonspecific synovitis. No evidence of ligamentous tear. No significant meniscal tear. Subcutaneous edema around the entire knee and lower leg. Complex mixed signal mass in the upper calf is probably a hematoma. No fracture seen. Proximal tibial metaphyseal low signal area probably fibrous cortical defect or bone island. This oswaldo uld be correlated with the plain film exam. I have no knee x-ray to compare.
[2021-10-24 18:18] LABS: Erythrocyte Sedimentation Rate >140 mm/hr (0-15)
[2021-10-24 18:47] LABS: Appearance,BF Cloudy; Color,BF Orange; Nucleated Cells, Body Fluid 20250 /uL; RBC, Body Fluid 9750 /uL
[2021-10-24 18:48] LABS: Appearance,BF Cloudy; Color,BF Orange; Nucleated Cells, Body Fluid 19300 /uL; RBC, Body Fluid 9600 /uL
[2021-10-24 19:02] LABS: Mononuclear WBC,Body Fluid 2 %; Polynuclear WBC,Body Fluid 98 %; Total Cells Counted,Body Fluid 100
[2021-10-24 19:03] LABS: Mononuclear WBC,Body Fluid 4 %; Polynuclear WBC,Body Fluid 96 %
[2021-10-24 19:04] LABS: Total Cells Counted,Body Fluid 100
--- NOTE | 2021-10-24 23:50 | P.PN ---
Subjective Progress Note Date: 10/23/21 Principal diagnosis: Bacteremia Patient is a 26 year male with a past medical history significant for end-stage renal disease on hemodialysis presented to hospital with sepsis and bacteremia secondary to dialysis catheter infection which was removed the evening of 10/20/2021. On today's evaluation that is 10/23/2021, the patient remains to be afebrile , the patient denies chest pain or shortness of breath or cough , the patient denies abdominal pain or diarrhea Objective - Vital Signs Vital signs: Vital Signs Temp 98.7 F 10/23/21 16:32 Pulse 110 H 10/23/21 09:30 Resp 18 10/23/21 16:32 BP 133/63 10/23/21 16:32 Pulse Ox 95 10/23/21 09:30 FiO2 Intake & Output 10/22/21 10/23/21 10/23/21 18:59 06:59 18:59 Intake Total 240 30 320 Output Total 150 3000 Balance 240 -120 -2680 Intake: IV 20 Oral 240 30 0 Hemodialysis 300 Output: Urine 150 Hemodialysis 3000 Other: Voiding Method Toilet Toilet Toilet Urinal Urinal Urinal # Voids 1 1 - Exam GENERAL DESCRIPTION: Young male lying in bed in no distress RESPIRATORY SYSTEM: Unlabored breathing , decreased breath sounds at bases HEART: S1 S2 regular rate and rhythm , ABDOMEN: Soft , no tenderness EXTREMITIES: No edema feet - Labs CBC & Chem 7: 10/24/21 16:46 10/24/21 16:46 Labs: Abnormal Lab Results - Last 24 Hours (Table) 10/23/21 Range/Units 07:47 Sodium 123 L (137-145) mmol/L Potassium 5.9 H (3.5-5.1) mmol/L Chloride 86 L (98-107) mmol/L Carbon Dioxide 18 L (22-30) mmol/L BUN 142 H* (9-20) mg/dL Creatinine 13.17 H* (0.66-1.25) mg/dL Microbiology - Last 24 Hours (Table) 10/21/21 13:50 Blood Culture Gram Stain - Final Blood Blood Culture - Final Staphylococcus aureus 10/22/21 12:22 Blood Culture Gram Stain - Preliminary Blood 10/22/21 12:22 Blood Culture - Final Blood 10/20/21 16:00 Catheter Tip Culture - Final Catheter Tip Staphylococcus aureus Assessment and Plan (1) Positive blood culture Current Visit: No Status: Acute Code(s): R78.81 - BACTEREMIA SNOMED Code(s): 136983523 Plan: 1patient presented to hospital with sepsis source is likely dialysis catheter infection in this patient who did have a staphylococcal bacteremia which has been finalized as MSSA 2the patient dialysis catheter has been removed and tip has been sent for the culture which came back positive with MSSA 3patient to continue with cefazolin and did a blood cultures to document jennifer lindsey of his bacteremia Time with Patient: Less than 30
--- NOTE | 2021-10-24 23:53 | P.PN ---
Subjective Progress Note Date: 10/24/21 Principal diagnosis: Bacteremia Patient is a 26 year male with a past medical history significant for end-stage renal disease on hemodialysis presented to hospital with sepsis and bacteremia secondary to dialysis catheter infection which was removed the evening of 10/20/2021. On today's evaluation that is 10/24/2021, the patient denies any fever or any chills , the patient denies chest pain or shortness of breath or cough , the patient denies abdominal pain and no diarrhea, patient is a little pain to the left knee and leg area for HMR has been noted Objective - Vital Signs Vital signs: Vital Signs Temp 97.9 F 10/24/21 12:00 Pulse 108 H 10/24/21 12:00 Resp 18 10/24/21 12:00 BP 140/78 10/24/21 13:54 Pulse Ox 97 10/24/21 12:00 FiO2 Intake & Output 10/23/21 10/24/21 10/24/21 18:59 06:59 18:59 Intake Total 320 0 Output Total 3000 350 3000 Balance -2680 -350 -3000 Weight 72.5 kg Intake: IV 20 Oral 0 0 Hemodialysis 300 Output: Urine 0 350 Stool 0 Urine/Stool Mix 0 Hemodialysis 3000 3000 Other: Voiding Method Toilet Toilet Urinal Urinal # Voids 0 1 # Bowel Movements 0 - Exam GENERAL DESCRIPTION: Young male lying in bed in no distress RESPIRATORY SYSTEM: Unlabored breathing , decreased breath sounds at bases HEART: S1 S2 regular rate and rhythm , ABDOMEN: Soft , no tenderness EXTREMITIES: No edema feet - Labs CBC & Chem 7: 10/24/21 16:46 10/24/21 16:46 Labs: Microbiology - Last 24 Hours (Table) 10/22/21 12:22 Blood Culture Gram Stain - Preliminary Blood Blood Culture - Preliminary Presumptive Staph aureus 10/19/21 19:30 Blood Culture Gram Stain - Final Blood Blood Culture - Final Staphylococcus aureus 10/23/21 07:47 Blood Culture - Preliminary Blood No Growth after 24 hours 10/21/21 13:50 Blood Culture Gram Stain - Final Blood Blood Culture - Final Staphylococcus aureus Assessment and Plan (1) Positive blood culture Current Visit: No Status: Acute Code(s): R78.81 - BACTEREMIA SNOMED Code(s): 958070506 Plan: 1patient presented to hospital with sepsis source is likely dialysis catheter infection in this patient who did have a staphylococcal bacteremia which has been finalized as MSSA 2the patient dialysis catheter has been removed and tip has been sent for the culture which came back positive with MSSA 3patient did have a temporary dialysis catheter placed yesterday and apparently the patient needed dialysis, patient to continue with cefazolin with the daily blood culture checked to make sure that evidence of bacteremia awaiting MRI of the left knee and possible aspirate Time with Patient: Less than 30
--- NOTE | 2021-10-25 03:48 | MR ---
EXAMINATION TYPE: MR femur/thigh LT wo con DATE OF EXAM: 10/24/2021 COMPARISON: None HISTORY: Left leg pain/swelling, renal failure, hyperkalemia. Multiplanar multiecho imaging of the left femur and thigh with no contrast. There is diffuse subcutaneous edema around the left thigh and more noticeable on the medial aspect. T here is left hip joint effusion. There is some mild soft tissue edema around the intertrochanteric pr oximal left femur. No femoral fractures seen. No evidence of soft tissue mass involving the muscles o f the left thigh. There is some patchy areas of decreased signal in the bone marrow space of the prox imal femurs and it could relate to multiple infarcts bilaterally. IMPRESSION: There is moderate left-sided hip joint effusion. Subcutaneous edema around the thigh. No evidence of soft tissue mass involving the thigh muscles. No fracture seen. No evidence of an abscess.
[2021-10-25 05:17] LABS: Synovial Fld Crystals None Seen (None Seen)
[2021-10-25 05:18] LABS: Synovial Fld Crystals None Seen (None Seen)
[2021-10-25] MEDS: THIAMINE 100 MG TAB PO SCH ×2 (06:20→20:17)
[2021-10-25] MEDS: SEVELAMER 800 MG TAB PO SCH ×3 (06:20→20:16)
[2021-10-25] MEDS: MULTIVITAMINS, THERA 1 EACH TAB PO SCH (08:10)
[2021-10-25 08:14] LABS: Anisocytosis Slight; Basophils # (A) 0.2 k/uL (0-0.2); Basophils % (A) 1 %; Eosinophils # (A) 0.1 k/uL (0-0.7); Eosinophils % (A) 1 %; HCT 21.9 % (39.0-53.0); Hypochromasia Moderate; Lymphocytes # (A) 1.7 k/uL (1.0-4.8); Lymphocytes % (A) 12 %; MCH 30.5 pg (25.0-35.0); MCHC 31.1 g/dL (31.0-37.0); MCV 97.8 fL (80.0-100.0); Macrocytosis Slight; Mean Platelet Volume 7.5; Monocytes # (A) 0.5 k/uL (0-1.0); Monocytes % (A) 4 %; Neutrophils % (A) 81 %; Platelet Count 352 k/uL (150-450); RBC 2.24 m/uL (4.30-5.90); WBC 13.6 k/uL (3.8-10.6)
[2021-10-25 08:19] LABS: HGB 6.8 gm/dL (13.0-17.5)
[2021-10-25 08:36] LABS: Calcium 8.9 mg/dL (8.4-10.2); Potassium 4.8 mmol/L (3.5-5.1)
[2021-10-25] MEDS: MORPHINE SULFATE 4 MG/ML SYRINGE IVP PRN ×2 (11:11→20:18)
--- NOTE | 2021-10-25 11:24 | P.PN ---
Subjective Patient is seen for follow-up for end-stage renal disease and the underlying bacteremia. Patient's blood cultures are growing staph aureus, MSSA. Blood cultures have been persistently positive. IJ permacath has been discontinued. Patient currently has a right femoral catheter. He was dialyzed 10/23/2021, 10/24/2021 and is scheduled for hemodialysis again today Patient is complaining of pain in his left knee and foot. This is improved from yesterday. Objective - Vital Signs Vital signs: Vital Signs Temp 98.8 F 10/25/21 08:13 Pulse 122 H 10/25/21 08:13 Resp 16 10/25/21 08:13 BP 160/80 10/25/21 08:13 Pulse Ox 98 10/25/21 08:13 FiO2 Intake & Output 10/24/21 10/25/21 10/25/21 18:59 06:59 18:59 Intake Total 638 Output Total 3000 1 Balance -2362 -1 Weight 72.5 kg Intake: Oral 118 Lipid 520 0.9 520 Output: Stool 1 Hemodialysis 3000 Other: Voiding Method Toilet Toilet Urinal Urinal - Exam Awake, comfortable, not in any acute distress Alert oriented 3 Examination of the heart S1 and S2 Examination lungs bilateral breath sounds are heard Abdomen is soft nontender Exertion lower extremity shows edema left knee with the knee effusion and tenderness. Left foot also appears edematous and tender RADIOLOGY RECEPTIONIST exam grossly intact. Left leg mobility decreased secondary to pain and swelling - Labs CBC & Chem 7: 10/25/21 07:46 10/25/21 07:46 Labs: Abnormal Lab Results - Last 24 Hours (Table) 10/24/21 10/24/21 10/25/21 Range/Units 16:46 16:46 07:46 WBC 10.7 H 13.6 H (3.8-10.6) k/uL RBC 2.31 L 2.24 L (4.30-5.90) m/uL Hgb 7.0 L D 6.8 L* (13.0-17.5) gm/dL Hct 22.1 L 21.9 L (39.0-53.0) % RDW 17.1 H 17.0 H (11.5-15.5) % Neutrophils # 9.0 H 11.0 H (1.3-7.7) k/uL Lymphocytes # 0.9 L (1.0-4.8) k/uL ESR >140 H (0-15) mm/hr Sodium 132 L (137-145) mmol/L Chloride 94 L (98-107) mmol/L Carbon Dioxide 32 H (22-30) mmol/L BUN 48 H (9-20) mg/dL Creatinine 5.39 H (0.66-1.25) mg/dL Glucose 119 H (74-99) mg/dL Calcium 8.3 L (8.4-10.2) mg/dL C-Reactive Protein 21.1 H (<1.0) mg/dL 10/25/21 Range/Units 07:46 WBC (3.8-10.6) k/uL RBC (4.30-5.90) m/uL Hgb (13.0-17.5) gm/dL Hct (39.0-53.0) % RDW (11.5-15.5) % Neutrophils # (1.3-7.7) k/uL Lymphocytes # (1.0-4.8) k/uL ESR (0-15) mm/hr Sodium 131 L (137-145) mmol/L Chloride 92 L (98-107) mmol/L Carbon Dioxide (22-30) mmol/L BUN 66 H (9-20) mg/dL Creatinine 7.45 H* (0.66-1.25) mg/dL Glucose (74-99) mg/dL Calcium (8.4-10.2) mg/dL C-Reactive Protein (<1.0) mg/dL Microbiology - Last 24 Hours (Table) 10/23/21 07:47 Blood Culture Gram Stain - Preliminary Blood Blood Culture - Preliminary Staphylococcus aureus 10/24/21 17:46 Gram Stain - Preliminary Knee - Left Body Fluid Culture - Preliminary 10/24/21 17:46 Gram Stain - Preliminary Synovial Fluid Body Fluid Culture - Preliminary 10/23/21 07:47 Blood Culture - Final Blood 10/22/21 12:22 Blood Culture Gram Stain - Preliminary Blood Blood Culture - Preliminary Presumptive Staph aureus 10/19/21 19:30 Blood Culture Gram Stain - Final Blood Blood Culture - Final Staphylococcus aureus 10/21/21 13:50 Blood Culture Gram Stain - Final Blood Blood Culture - Final Staphylococcus aureus Assessment and Plan Assessment: 1. End-stage renal disease on hemodialysis on a [facility] [place] schedule. IJ permacath has been removed 2. MSSA bacteremia which is persistent. Status post removal of IJ permacath and placement of temporary femoral catheter on 10/23/2021 with plans for removal today after third treatment of hemodialysis. 3. Hyperkalemia associated with end-stage renal disease, expect improvement with dialysis 4. Hyponatremia associated with end-stage renal disease expect improvement post dialysis Plan: Repeat hemodialysis today Check labs DC femoral catheter today after hemodialysis
--- NOTE | 2021-10-25 11:27 | P.PN ---
Subjective Progress Note Date: 10/25/21 This patient is a 26- year old male who orthopedics is following in regards to left lower extremity pain. Left knee and ankle were aspirated yesterday by Dr. Stokes. MRI of the left lower leg, ankle, foot scheduled for 11:15 today per nursing. Patient is examined bedside this morning. Patient continues to experience pain in his left hip, knee, and ankle today. He states the pain has not improved since yesterday. Hemoglobin resulted as 6.8 this morning, one unit of PRBCs has been ordered per internal medicine. He is scheduled for dialysis this morning. Patient's blood cultures positive this morning. He has no additional complaints at the time of my exam. Objective - Vital Signs Vital signs: Vital Signs Temp 98.8 F 10/25/21 08:13 Pulse 122 H 10/25/21 08:13 Resp 16 10/25/21 08:13 BP 160/80 10/25/21 08:13 Pulse Ox 98 10/25/21 08:13 FiO2 Intake & Output 10/24/21 10/25/21 10/25/21 18:59 06:59 18:59 Intake Total 638 Output Total 3000 1 Balance -2362 -1 Weight 72.5 kg Intake: Oral 118 Lipid 520 0.9 520 Output: Stool 1 Hemodialysis 3000 Other: Voiding Method Toilet Toilet Urinal Urinal - Exam On examination, patient is sitting up in bed in no apparent distress. He is alert and oriented 3. On inspection of the left thigh, there is mild swelling. No significant overlying erythema, warmth. No fluctuance appreciated. Pain with attempts at PROM of the hip, knee, ankle. There is a moderate left knee and left ankle joint effusions. No significant erythema. Motor and sensory function intact LLE. Dorsalis pedis pulse easily palpable. - Labs CBC & Chem 7: 10/25/21 07:46 10/25/21 07:46 Labs: Abnormal Lab Results - Last 24 Hours (Table) 10/24/21 10/24/21 10/25/21 Range/Units 16:46 16:46 07:46 WBC 10.7 H 13.6 H (3.8-10.6) k/uL RBC 2.31 L 2.24 L (4.30-5.90) m/uL Hgb 7.0 L D 6.8 L* (13.0-17.5) gm/dL Hct 22.1 L 21.9 L (39.0-53.0) % RDW 17.1 H 17.0 H (11.5-15.5) % Neutrophils # 9.0 H 11.0 H (1.3-7.7) k/uL Lymphocytes # 0.9 L (1.0-4.8) k/uL ESR >140 H (0-15) mm/hr Sodium 132 L (137-145) mmol/L Chloride 94 L (98-107) mmol/L Carbon Dioxide 32 H (22-30) mmol/L BUN 48 H (9-20) mg/dL Creatinine 5.39 H (0.66-1.25) mg/dL Glucose 119 H (74-99) mg/dL Calcium 8.3 L (8.4-10.2) mg/dL C-Reactive Protein 21.1 H (<1.0) mg/dL 10/25/21 Range/Units 07:46 WBC (3.8-10.6) k/uL RBC (4.30-5.90) m/uL Hgb (13.0-17.5) gm/dL Hct (39.0-53.0) % RDW (11.5-15.5) % Neutrophils # (1.3-7.7) k/uL Lymphocytes # (1.0-4.8) k/uL ESR (0-15) mm/hr Sodium 131 L (137-145) mmol/L Chloride 92 L (98-107) mmol/L Carbon Dioxide (22-30) mmol/L BUN 66 H (9-20) mg/dL Creatinine 7.45 H* (0.66-1.25) mg/dL Glucose (74-99) mg/dL Calcium (8.4-10.2) mg/dL C-Reactive Protein (<1.0) mg/dL Microbiology - Last 24 Hours (Table) 10/23/21 07:47 Blood Culture Gram Stain - Preliminary Blood 10/24/21 17:46 Gram Stain - Preliminary Knee - Left Body Fluid Culture - Preliminary 10/24/21 17:46 Gram Stain - Preliminary Synovial Fluid Body Fluid Culture - Preliminary 10/23/21 07:47 Blood Culture - Final Blood 10/22/21 12:22 Blood Culture Gram Stain - Preliminary Blood Blood Culture - Preliminary Presumptive Staph aureus 10/19/21 19:30 Blood Culture Gram Stain - Final Blood Blood Culture - Final Staphylococcus aureus 10/21/21 13:50 Blood Culture Gram Stain - Final Blood Blood Culture - Final Staphylococcus aureus Assessment and Plan Assessment: Left hip, knee, ankle pain Probable septic arthritis left hip, knee, ankle Plan: - Lab results from joint aspirate of left knee and ankle were reviewed. Patient was discussed in detail with Dr. Stokes. Based on the entire clinical picture and patient's continued symptoms, there is concern for septic arthritis of the left hip, knee, and ankle and surgical intervention is recommended. This was also discussed with the patient, who is in agreement with surgery. - We will plan for an open I&D of the left hip, arthroscopic I&D of the left knee, and an open I&D of the left ankle this afternoon. - NPO diet.
[2021-10-25] MEDS: TORSEMIDE 20 MG TAB PO SCH (14:02)
[2021-10-25] MEDS ORDERED: LACTATED RINGERS 1,000 ML IV ONE (15:43)
[2021-10-25] MEDS ORDERED: MIDAZOLAM 2 MG/2 ML VIAL ONE (16:04)
[2021-10-25] MEDS ORDERED: PROPOFOL 10 MG/ML 20 ML VIAL IV ONE (16:04)
[2021-10-25] MEDS ORDERED: LIDOCAINE 2% INJ 20 MG/ML (2 ML VIAL) ONE (16:04)
[2021-10-25] MEDS ORDERED: HYDROmorphone (PF) 1 MG/ML ONE (16:04)
[2021-10-25] MEDS ORDERED: fentaNYL (PF) 50 MCG/ML 2 ML AMP ONE (16:04)
[2021-10-25] MEDS ORDERED: SODIUM CHLORIDE 0.9% 50 ML with ceFAZolin 2,000 MG IV ONE ×2 (16:09)
[2021-10-25] MEDS ORDERED: HYDROmorphone 0.5 MG/0.5 ML SYRINGE IVP ONE ×2 (18:25→18:41)
--- NOTE | 2021-10-25 18:31 | P.OP ---
Date of Procedure: 10/25/21 Preoperative Diagnosis: 1. Left hip, knee, and ankle effusions presumed septic arthritis 2. Left thigh fluid collection hematoma versus abscess 3. Recent bacteremia with multiple positive cultures for MSSA 4. Chronic renal insufficiency requiring dialysis Postoperative Diagnosis: Same Procedure(s) Performed: 1. Incision and drainage left hip 2. Incision and drainage left knee 3. Incision and drainage left ankle 4. Irrigation and debridement left calf (non-incisional debridement of nonviable skin and subcutaneous tissue) Anesthesia: MARIBETH Surgeon: Reggie Stokes Ob/Gyn Doctor #1: Juancarlos Newman Estimated Blood Loss (ml): 50 Pathology: other (Poc[place]as deep cultures) Condition: stable Disposition: PACU Indications for Procedure: The patient is a very pleasant 26-year-old male with a medical history significant for chronic renal failure on dialysis who is admitted to internal medicine with positive blood cultures. Orthopedics was consulted last Sunday for left leg pain. He had mild pain and swelling throughout the leg but minimal pain with passive range of motion of the hip. He was seen again Sunday and had almost complete resolution of his symptoms. Our service was contacted Sunday due to increased swelling in the left leg. He was evaluated Sunday and was found to have significant pain and swelling with any range of motion of the hip, knee, or ankle. He had large effusions in the knee and ankle. Both the knee and ankle were aspirated and an MRI was ordered of the entire left leg which showed fluid collections in the hip, knee, and ankle and a complex fluid collection in the calf. Due to the entire picture including positive blood cultures, worsening pain, elevated inflammatory markers, and the patient's poor overall health I recommended operative debridement to decompress and take deep fluid cultures. The patient understands that he is at a high risk of having a complication due to his multiple medical problems. He provided his verbal and written consent to go forward with surgery. Operative Findings: Cloudy fluid was encountered in the left hip, knee, and ankle. This was sent for cultures. There was a consolidating hematoma and sanguinous fluid in the calf. This did not appear obviously infected but was sent for culture. The gastrocnemius and soleus muscles appeared healthy, viable and contracted when stimulated with electrocautery Description of Procedure: The patient was identified in preoperative holding and the correct left leg was marked with my initials. I reviewed the consent form with the patient and all his questions were answered. He was then brought back to the operating room position on the OR table where general anesthetic and preoperative antibiotics were given. All bony prominences well-padded. The left leg was prepped and draped in the standard sterile fashion. Prior to starting surgery timeout was performed identifying the correct patient, operative extremity, and procedure. I began by approaching the left hip through a direct anterior approach using the [place] interval. Skin incision was made with a scalpel and dissection was carried down carefully to the fascia over the tensor. The fascia was split longitudinally in line with the skin incision. I bluntly developed the interval between the tensor laterally and the sartorius and rectus medially. The lateral femoral circumflex vessels were identified and controlled with bipolar sealant. The hip capsule was identified and teed. There was immediately a large lopez of cloudy yellow fluid which was swabbed for culture. A portion of the hip capsule was removed and sent for cultures. 3 L of sterile saline was then used to irrigate the joint thoroughly. The wound was then loosely closed in layers over a drain. Attention was next turned to the left knee. Straight anterior incision centered over the patella was made with a scalpel and dissection was carried down carefully to the subcutaneous tissue to the first fascial layer. A medial parapatellar arthrotomy was created. There was a large lopez of cloudy fluid which was also swabbed and sent for culture. The knee joint was then thoroughly irrigated using 3 L of sterile saline with cystoscopy tubing. A deep drain was placed in the knee joint and then the knee was closed in layers. Attention was next turned to the left calf. A 5 cm incision was made over the medial aspect of the calf just posterior to the tibia. Skin incision was made with a scalpel and dissection was carried down carefully through subcutaneous tissue to the fascia which was incised longitudinally in line with the skin incision. Immediately upon entering the potential space between the gastrocnemius and soleus there was a large collection of sanguinous fluid. This was swabbed and sent for culture. Both the gastrocnemius and soleus had healthy-appearing color, were contractile and stimulated with electrocautery, bled, and had appropriate consistency. This wound was then thoroughly irrigated with 3 L of sterile saline using cystoscopy tubing. The wound was then closed in layers. Attention was then turned to the left ankle. An anteromedial incision was marked out just medial to the tibialis anterior tendon. Skin incision was made with a scalpel and dissection was carried down carefully through subcutaneous tissue. The ankle joint capsules identified and incised longitudinally in line with the skin incision. There was a large lopez of cloudy yellow fluid which was swabbed and sent for culture. The ankle joint was then irrigated using 3 L of sterile saline. A deep drain was placed. The ankle joint was then closed in layers. I verified that all instrument, sponge, and sharp counts were correct. Sterile dressings were applied over all wounds. An Leo wrap was placed over the left leg. The patient was then brought to recovery having tolerated procedure well. Juancarlos Newman PA-C was required as a skilled senior sales assistant due to the flexor the surgery. PLAN: The patient can weight-bear as tolerated in his left leg. We will leave his drains in for 48 hours. Antibiotics per infectious disease. Multiple cultures have been taken. I no plans for repeat I&D unless his condition worsens.
--- NOTE | 2021-10-25 21:02 | PCN ---
PROCEDURE NOTE PREOP DIAGNOSIS: Acute on chronic renal failure with positive blood culture. POSTOPERATIVE DIAGNOSES: Acute on chronic renal failure with positive blood cultures. PROCEDURE: Removal of dialysis catheter right femoral approach. DESCRIPTION OF PROCEDURE: The patient was seen in the room. Right groin was prepped and drapes applied in the usual sterile manner. The stitches were removed and the catheter was removed. Pressure was held. Pressure dressing applied. Patient tolerated the procedure well. MMODL / IJN: [id number] /
[2021-10-26] MEDS: ACETAMINOPHEN TAB 325 MG TAB PO PRN ×3 (00:10→21:18)
[2021-10-26] MEDS: MORPHINE SULFATE 4 MG/ML SYRINGE IVP PRN ×3 (00:14→12:14)
[2021-10-26] MEDS: HYDROcodone/APAP 5-325MG 1 EACH TAB PO PRN (03:21)
--- NOTE | 2021-10-26 04:16 | MR ---
EXAMINATION TYPE: MR lower leg LT wo con DATE OF EXAM: 10/25/2021 COMPARISON: Correlation MRI knee 10/24/2021 HISTORY: 26-year-old male Left lower leg pain/swelling, renal failure, hyperkalemia. TECHNIQUE: Multiplanar, multisequence images of the left leg were obtained without IV contrast. Coron al and axial images of the contralateral side for comparison purposes. FINDINGS: Extensive subcutaneous edema about the left knee and extending along the left leg and ankle. There is asymmetric enlargement of the left leg musculature and a large, complex, elongated collectio n centered along the upper to mid medial head gastrocnemius near its junction with the lateral head a nd deep posterior compartment. This measures up to 15.8 cm long by 2.3 cm wide by 7.8 cm AP. Internal areas of both low T1 and T2 signal is present as well as some bright T1 weighted areas. Some edema extends along the fascial compartments as well. Partially visualized moderate left ankle and moderate to large right ankle joint effusions. Knee reported separately. Cortical-based 2.0 cm low signal intensity lesion medial proximal tibial metadiaphysis reported on e MRI knee exam, probable NOF. Otherwise, no suspicious bone marrow replacement. IMPRESSION: 1. Extensive subcutaneous edema and some deeper soft tissue edema throughout the left leg. Asymmetric enlargement of the left leg musculature. Findings likely relate to generalized soft tissue edema or bruising. Correlate to exclude signs/symptoms of an aggressive deeper soft tissue infection or myosit is given these findings. We see that the patient's Doppler ultrasound of 10/24/2021 was negative for D VT. The patient can be monitored to exclude developing signs/symptoms of compartment syndrome. 2. A concurrent 15.8 x 7.8 x 2.3 cm mixed signal intensity collection centered along the upper to mid medial head gastrocnemius near its junction with the lateral head and deep posterior compartment. Gi barron the areas of increased T1-weighted signal, a large hematoma is favored. Recommend follow-up MRI i n 6-8 weeks to ensure that the area is decreasing in size and exclude the possibility of underlying m ass.
[2021-10-26] MEDS: SEVELAMER 800 MG TAB PO SCH ×3 (06:27→18:46)
[2021-10-26] MEDS: THIAMINE 100 MG TAB PO SCH ×2 (06:28→18:46)
--- NOTE | 2021-10-26 08:45 | P.PN ---
Subjective Progress Note Date: 10/25/21 Sepsis with blood cultures positive for gram-positive cocci Acute delirium from sepsis End-stage kidney disease on hemodialysis 26-year-old patient, follows with Dr. Travis moore. Chronic stable medical conditions include end-stage kidney disease on hemodialysis Sunday and Sunday, essential hypertension, secondary hyperparathyroidism. Patient came in because of not feeling well. Unsteady weak diet and rundown. Unsure about fever. Blood drawn at the nephrology dialysis center was positive for gram- positive cocci. IV vancomycin was given. Patient is slightly delirious. Consultation nephrology denies D was done. Appetite fair denies any respiratory or urinary symptoms. Admitted with sepsis with positive blood culture from the dialysis center, delirium. IV vancomycin started. October 20: Tired. Decreased oral intake. Dialysis catheter to be taken out today. Patient received dialysis yesterday. Discussed with patient. Tired. Repeat blood cultures from yesterday growing staph aureus. October 21: Less delirious today. Dialysis catheter has been removed yesterday. Blood cultures from here growing staph aureus. Patient not hungry. Did not eat his breakfast. Tired. Patient complaining of pain around the left hip area. I ordered Doppler ultrasound that came back to be negative. Hip x-ray was also ordered and came back to be unremarkable. Orthopedics consulted. 10/23/2021 Patient is seen and evaluated in room at bedside; patient complains of generalized pain more so in Lasix; no complaint of chest pain or shortness of breath Vital signs are reviewed; blood pressure 169/98, pulse 111 Lab review shows a sodium of 123 which is down from 126 yesterday, potassium 5.9, bicarbonate 18, BUN/creatinine of 142/13.1 Repeat blood cultures drawn yesterday are reported positive; plan was to reinsert permacath if blood cultures were negative; nephrology recommending to proceed with placement of Angel catheter and dialyze the patient today and tomorrow due to worsening hyponatremia with plans to remove catheter after dialysis; patient will have a permacath placement once her cultures turn negative with possibility of paratonia dialysis in the meantime 10/24/2021 Patient is seen in follow-up this morning currently receiving hemodialysis. Multiple medical consultations including nephrology and infectious disease following. Blood cultures and catheter tip culture showing staph aureus and awaiting for bacteremia clearance. Patient will also need replacement dialysis catheter once cleared by infectious disease. Patient is currently maintained on 1500 mL fluid restrictions and will slightly increase as patient reports he is thirsty and not getting enough intake. Patient is currently afebrile and denies any chest pain or palpitations. 10/25/2021 Patient is seen in follow-up this morning and hemoglobin was found to be 6.8 and will transfuse 1 unit of PRBC. Patient is scheduled to undergo incision and drainage with possible debridement of the left hip and left lower extremity with orthopedics today. Patient also to have dialysis catheter removed by vascular surgery. Patient continues on fluid restrictions and is currently nothing by mouth for the procedure and diuretics being held. No plans for hemodialysis today. Patient is maintained on Sunday/Sunday/Sunday schedule and will continue with nephrology following closely. Patient is also maintained on IV antibiotics with infectious disease following closely and will continue. Mariusz brooks culture showing MSSA and hopeful for cultures during surgery today. She is currently afebrile and denies chest pain or shortness of breath. Patient reports left leg pain. Review of systems: Constitutional: No reports of fatigue, fever, or chills Cardiovascular: No reports of chest pain or palpitations Respiratory: No reports of shortness of breath or cough GI: No reports of nausea, vomiting, or diarrhea : No reports of dysuria or retention Neurovascular: reports of generalized weakness reports left knee and foot pain All medications have been reviewed Active Medications Acetaminophen (Acetaminophen Tab 325 Mg Tab) 650 mg PO Q4HR PRN PRN Reason: Fever and/ or Pain Last Admin: 10/26/21 00:10 Dose: 650 mg Hydrocodone Bitart/Acetaminophen (Hydrocodone/Apap 5-325mg 1 Each Tab) 1 each PO Q6HR PRN PRN Reason: Pain Last Admin: 10/26/21 03:21 Dose: 1 each Darbepoetin Luis E (Darbepoetin Luis E 40 Mcg/0.4 Ml Syringe) 40 mcg SQ Q7D CHAVA Last Admin: 10/19/21 13:37 Dose: 40 mcg Cefazolin Sodium 1,000 mg/ (Sodium Chloride) 50 mls @ 100 mls/hr IVPB Q12H CHAVA Lorazepam (Lorazepam 0.5 Mg Tab) 0.5 mg PO Q6HR PRN PRN Reason: Anxiety Last Admin: 10/24/21 00:02 Dose: 0.5 mg Morphine Sulfate (Morphine Sulfate 4 Mg/Ml Syringe) 4 mg IVP Q4HR PRN PRN Reason: Pain Last Admin: 10/26/21 06:28 Dose: 4 mg Multivitamins (Multivitamins, Thera 1 Each Tab) 1 each PO DAILY [facility] [place] Last Admin: 10/25/21 08:10 Dose: Not Given Naloxone HCl (Naloxone 0.4 Mg/Ml 1 Ml Vial) 0.2 mg IV Q2M PRN PRN Reason: Opioid Reversal Sevelamer Carbonate (Sevelamer 800 Mg Tab) 1,600 mg PO TID-W/MEALS [facility] [place] Last Admin: 10/26/21 06:27 Dose: 1,600 mg Thiamine HCl (Thiamine 100 Mg Tab) 100 mg PO BID-W/MEALS [facility] [place] Last Admin: 10/26/21 06:28 Dose: 100 mg Torsemide (Torsemide 20 Mg Tab) 80 mg PO DAILY [facility] [place] Last Admin: 10/25/21 14:02 Dose: Not Given Physical exam: Gen: This is a 26-year-old male awake, alert and oriented 3, thin built HEENT: Head is atraumatic, normocephalic. Pupils equal, round. Sclerae is anicteric. NECK: Supple. No JVD. No lymphadenopathy. No thyromegaly. LUNGS: Diminished breath sounds bilaterally with some scattered rhonchi and crackles noted. No intercostal retractions. HEART: S1, S2 are muffled ABDOMEN: Soft. Bowel sounds are present. No masses. No tenderness. EXTREMITIES: No pedal edema. No calf tenderness. Left hip and lower extremity surgical dressings dry with drainage tubes noted NEUROLOGICAL: Patient is awake, alert and oriented x3. Cranial nerves 2 through 12 are grossly intact. Assessment: Sepsis with positive blood cultures showing gram-positive cocci and growing staph aureus from the dialysis center Status post dialysis catheter removal Status post incision and drainage of the left hip, knee, ankle for fluid collections and effusions with the possibility of septic arthritis cultures have been obtained and pending Acute delirium from sepsis, improved End-stage renal disease on hemodialysis Sunday/Sunday/Sunday Anemia of chronic disease Chronic kidney disease Left hip and upper thigh pain possibly musculoskeletal strain, Doppler ultrasound was negative for DVT GI prophylaxis DVT prophylaxis Full code Plan: Patient is currently maintained on hemodialysis and will continue on Sunday/Sunday/Sunday with nephrology following closely. No plans for dialy sis today and will continue current regimen. Hemoglobin 6.8 and recommend 1 unit of PRBC and repeat labs in the morning Patient is currently nothing by mouth and diuretics on hold as patient is schedu led for I&D and/or debridement of the left hip knee and ankle with orthopedics today and will await surgical report Infectious Disease also following and patient is maintained on IV antibiotics in the form of cefazolin while awaiting for cultures to finalize. Most recent repeat blood cultures have been negative and previous culture showing MSSA and deep tissue cultures have been obtained with debridement and will await finalized cultures Recommend continue with 2000 mL fluid restriction and close monitoring of intake and output Recommend resuming appropriate home medications Will need to discuss further with infectious disease about discharge planning of continued antibiotic therapy and if requiring IV antibiotic therapy or is to receive with hemodialysis, patient will also require a new dialysis catheter placement vascular surgery is following Due to multiple complex medical issues, prognosis is guarded The impression and plan of care has been dictated by Vee Honeycutt, Nurse Practitioner as directed. Dr. Elder MD I have performed a history and examination and MDM of this patient, discussed the same with the dictator, and agree with the dictator's assessment and plan as written ,documented as a scribe. Based on total visit time, I have performed more than 50% of the visit. Objective - Vital Signs Vital signs: Vital Signs Temp 98.8 F 10/25/21 08:13 Pulse 122 H 10/25/21 08:13 Resp 16 10/25/21 08:13 BP 160/80 10/25/21 08:13 Pulse Ox 98 10/25/21 08:13 FiO2 Intake & Output 10/24/21 10/25/21 10/25/21 18:59 06:59 18:59 Intake Total 638 Output Total 3000 1 Balance -2 - Weight 72.5 kg Intake: Oral 118 Lipid 520 0.9 520 Output: Stool 1 Hemodialysis 3000 Other: Voiding Method Toilet Toilet Urinal Urinal - Labs CBC & Chem 7: 10/25/21 07:46 10/25/21 07:46 Labs: Abnormal Lab Results - Last 24 Hours (Table) 10/24/21 10/24/21 10/25/21 Range/Units 16:46 16:46 07:46 WBC 10.7 H 13.6 H (3.8-10.6) k/uL RBC 2.31 L 2.24 L (4.30-5.90) m/uL Hgb 7.0 L D 6.8 L* (13.0-17.5) gm/dL Hct 22.1 L 21.9 L (39.0-53.0) % RDW 17.1 H 17.0 H (11.5-15.5) % Neutrophils # 9.0 H 11.0 H (1.3-7.7) k/uL Lymphocytes # 0.9 L (1.0-4.8) k/uL ESR >140 H (0-15) mm/hr Sodium 132 L (137-145) mmol/L Chloride 94 L (98-107) mmol/L Carbon Dioxide 32 H (22-30) mmol/L BUN 48 H (9-20) mg/dL Creatinine 5.39 H (0.66-1.25) mg/dL Glucose 119 H (74-99) mg/dL Calcium 8.3 L (8.4-10.2) mg/dL C-Reactive Protein 21.1 H (<1.0) mg/dL 10/25/21 Range/Units 07:46 WBC (3.8-10.6) k/uL RBC (4.30-5.90) m/uL Hgb (13.0-17.5) gm/dL Hct (39.0-53.0) % RDW (11.5-15.5) % Neutrophils # (1.3-7.7) k/uL Lymphocytes # (1.0-4.8) k/uL ESR (0-15) mm/hr Sodium 131 L (137-145) mmol/L Chloride 92 L (98-107) mmol/L Carbon Dioxide (22-30) mmol/L BUN 66 H (9-20) mg/dL Creatinine 7.45 H* (0.66-1.25) mg/dL Glucose (74-99) mg/dL Calcium (8.4-10.2) mg/dL C-Reactive Protein (<1.0) mg/dL Microbiology - Last 24 Hours (Table) 10/23/21 07:47 Blood Culture Gram Stain - Preliminary Blood 10/24/21 17:46 Gram Stain - Preliminary Knee - Left Body Fluid Culture - Preliminary 10/24/21 17:46 Gram Stain - Preliminary Synovial Fluid Body Fluid Culture - Preliminary 10/23/21 07:47 Blood Culture - Final Blood 10/22/21 12:22 Blood Culture Gram Stain - Preliminary Blood Blood Culture - Preliminary Presumptive Staph aureus 10/19/21 19:30 Blood Culture Gram Stain - Final Blood Blood Culture - Final Staphylococcus aureus 10/21/21 13:50 Blood Culture Gram Stain - Final Blood Blood Culture - Final Staphylococcus aureus
[2021-10-26] MEDS: MULTIVITAMINS, THERA 1 EACH TAB PO SCH (09:29)
[2021-10-26] MEDS: TORSEMIDE 20 MG TAB PO SCH (09:29)
[2021-10-26 09:42] LABS: Calcium 8.5 mg/dL (8.4-10.2); Potassium 4.8 mmol/L (3.5-5.1)
[2021-10-26 10:05] LABS: Anisocytosis Slight; Basophils # (A) 0.1 k/uL (0-0.2); Basophils % (A) 1 %; Eosinophils # (A) 0.1 k/uL (0-0.7); Eosinophils % (A) 1 %; HGB 7.1 gm/dL (13.0-17.5); Hypochromasia Moderate; Lymphocytes # (A) 1.4 k/uL (1.0-4.8); Lymphocytes % (A) 9 %; MCH 29.1 pg (25.0-35.0); MCHC 30.9 g/dL (31.0-37.0); MCV 93.9 fL (80.0-100.0); Mean Platelet Volume 7.5; Monocytes # (A) 0.6 k/uL (0-1.0); Monocytes % (A) 4 %; Neutrophils % (A) 85 %; Platelet Count 439 k/uL (150-450); RBC 2.45 m/uL (4.30-5.90); RDW 19.4 % (11.5-15.5); WBC 15.4 k/uL (3.8-10.6)
--- NOTE | 2021-10-26 10:45 | P.PN ---
Subjective Progress Note Date: 10/26/21 This patient is a 26- year old male who is status-post I&D left hip, left knee, left ankle for presumed septic arthritis, and irrigation and debridement left calf for hematoma versus abscess on 10/25/21. Today is post-operative day #1. Patient is examined with Dr. Stokes. Patient states his left lower extremity pain is slightly improved from yesterday. He has not been out of bed yet post-operatively. He has no new complaints today. Hemoglobin 7.1 this morning. Vital signs stable. Objective - Vital Signs Vital signs: Vital Signs Temp 98.5 F 10/26/21 03:23 Pulse 109 H 10/26/21 03:23 Resp 12 10/26/21 03:23 BP 149/78 10/26/21 03:23 Pulse Ox 98 10/26/21 03:23 FiO2 Intake & Output 10/25/21 10/26/21 10/26/21 18:59 06:59 18:59 Intake Total 1160 50 Output Total 2551 60 Balance -1391 -10 Weight 72.5 kg Intake: IV 550 50 Blood Product 310 Rc As-1 Unit 310 [id number] Hemodialysis 300 Output: Drainage 60 Left Ankle 0 Left Hip 40 Left Knee 20 Stool 1 Hemodialysis 2500 Estimated Blood Loss 50 Other: Voiding Method Toilet Urinal Urinal # Voids 0 - Exam On examination, patient is sitting up in bed in no apparent distress. He is alert and oriented 3. On inspection of the left lower extremity, there is an SRIRAM wrap in place. There are hemovac drains present at the left hip, left knee, and left ankle. There is minimal pain with palpation of the left hip, thigh, knee, calf. There is moderate pain with palpation of the left ankle and foot. Patient is able to wiggle toes appropriately. Foot is warm and well perfused. - Labs CBC & Chem 7: 10/26/21 08:17 10/26/21 08:17 Labs: Abnormal Lab Results - Last 24 Hours (Table) 10/25/21 10/26/21 10/26/21 Range/Units 09:20 08:17 08:17 WBC 15.4 H (3.8-10.6) k/uL RBC 2.45 L (4.30-5.90) m/uL Hgb 7.1 L (13.0-17.5) gm/dL Hct 23.0 L (39.0-53.0) % MCHC 30.9 L (31.0-37.0) g/dL RDW 19.4 H (11.5-15.5) % Neutrophils # 13.0 H (1.3-7.7) k/uL Sodium 130 L (137-145) mmol/L Chloride 94 L (98-107) mmol/L BUN 60 H (9-20) mg/dL Creatinine 8.08 H* (0.66-1.25) mg/dL Glucose 110 H (74-99) mg/dL Crossmatch See Detail Microbiology - Last 24 Hours (Table) 10/22/21 12:22 Blood Culture Gram Stain - Final Blood Blood Culture - Final Staphylococcus aureus 10/25/21 00:22 Blood Culture Gram Stain - Preliminary Blood 10/25/21 17:44 Gram Stain - Preliminary Hip - Left Wound Culture - Preliminary 10/25/21 17:44 Gram Stain - Preliminary Ankle - Left Wound Culture - Preliminary 10/25/21 17:44 Gram Stain - Preliminary Ankle - Left Tissue Culture - Preliminary 10/25/21 17:44 Gram Stain - Preliminary Leg - Left Wound Culture - Preliminary 10/25/21 17:44 Gram Stain - Preliminary Knee - Left Wound Culture - Preliminary 10/25/21 17:44 Gram Stain - Preliminary Hip - Left Tissue Culture - Preliminary 10/25/21 00:22 Blood Culture - Final Blood 10/25/21 17:44 Anaerobic Culture - Preliminary Hip - Left 10/25/21 17:44 Anaerobic Culture - Preliminary Ankle - Left 10/25/21 17:44 Anaerobic Culture - Preliminary Knee - Left 10/25/21 17:44 Anaerobic Culture - Preliminary Leg - Left 10/24/21 17:46 Gram Stain - Preliminary Knee - Left Body Fluid Culture - Preliminary 10/24/21 09:58 Blood Culture Gram Stain - Preliminary Blood 10/24/21 09:58 Blood Culture - Final Blood 10/23/21 07:47 Blood Culture Gram Stain - Preliminary Blood Blood Culture - Preliminary Staphylococcus aureus 10/24/21 17:46 Gram Stain - Preliminary Synovial Fluid Body Fluid Culture - Preliminary Assessment and Plan Assessment: Status-post I&D left hip, left knee, left ankle for presumed septic arthritis, and irrigation and debridement left calf for hematoma versus abscess on 10/25/21. Post-operative day #1. Plan: - Patient may weight bear as tolerated on left lower extremity with a walker. PT consulted for mobilization. - Keep surgical dressings, hemovac drains in place. - Pain management as needed. - Will follow multiple intra-op cultures. Antibiotics per infectious disease. - DVT prophylaxis per internal medicine. - We have no further plans for additional surgical intervention at this time. - We will follow patient closely.
[2021-10-26] MEDS: DARBEPOETIN ALFA 40 MCG/0.4 ML SYRINGE SQ SCH (11:23)
[2021-10-26] MEDS: NAFCILLIN 2 GM in DEXTROSE 5% IN WATER 100 ML IVPB SCH ×4 (15:58→21:19)
--- NOTE | 2021-10-26 18:30 | P.PN ---
Subjective Progress Note Date: 10/25/21 Principal diagnosis: Bacteremia Patient is a 26 year male with a past medical history significant for end-stage renal disease on hemodialysis presented to hospital with sepsis and bacteremia secondary to dialysis catheter infection which was removed the evening of 10/20/2021. On today's evaluation that is 10/25/2021, the patient remains to be afebrile , the patient denies chest pain or shortness of breath or cough , the patient denies abdominal pain and no diarrhea, patient is complaining of pain to the left knee and leg area, patient to be rescheduled for I&D to the left knee and ankle area this afternoon Objective - Vital Signs Vital signs: Vital Signs Temp 98.8 F 10/25/21 08:13 Pulse 122 H 10/25/21 08:13 Resp 16 10/25/21 08:13 BP 160/80 10/25/21 08:13 Pulse Ox 98 10/25/21 08:13 FiO2 Intake & Output 10/24/21 10/25/21 10/25/21 18:59 06:59 18:59 Intake Total 638 Output Total 3000 1 Balance -2362 -1 Weight 72.5 kg Intake: Oral 118 Lipid 520 0.9 520 Output: Stool 1 Hemodialysis 3000 Other: Voiding Method Toilet Toilet Urinal Urinal - Exam GENERAL DESCRIPTION: Young male lying in bed in no distress RESPIRATORY SYSTEM: Unlabored breathing , decreased breath sounds at bases HEART: S1 S2 regular rate and rhythm , ABDOMEN: Soft , no tenderness EXTREMITIES: No edema feet - Labs CBC & Chem 7: 10/26/21 08:17 10/26/21 08:17 Labs: Abnormal Lab Results - Last 24 Hours (Table) 10/24/21 10/24/21 10/25/21 Range/Units 16:46 16:46 07:46 WBC 10.7 H 13.6 H (3.8-10.6) k/uL RBC 2.31 L 2.24 L (4.30-5.90) m/uL Hgb 7.0 L D 6.8 L* (13.0-17.5) gm/dL Hct 22.1 L 21.9 L (39.0-53.0) % RDW 17.1 H 17.0 H (11.5-15.5) % Neutrophils # 9.0 H 11.0 H (1.3-7.7) k/uL Lymphocytes # 0.9 L (1.0-4.8) k/uL ESR >140 H (0-15) mm/hr Sodium 132 L (137-145) mmol/L Chloride 94 L (98-107) mmol/L Carbon Dioxide 32 H (22-30) mmol/L BUN 48 H (9-20) mg/dL Creatinine 5.39 H (0.66-1.25) mg/dL Glucose 119 H (74-99) mg/dL Calcium 8.3 L (8.4-10.2) mg/dL C-Reactive Protein 21.1 H (<1.0) mg/dL Crossmatch 10/25/21 10/25/21 Range/Units 07:46 09:20 WBC (3.8-10.6) k/uL RBC (4.30-5.90) m/uL Hgb (13.0-17.5) gm/dL Hct (39.0-53.0) % RDW (11.5-15.5) % Neutrophils # (1.3-7.7) k/uL Lymphocytes # (1.0-4.8) k/uL ESR (0-15) mm/hr Sodium 131 L (137-145) mmol/L Chloride 92 L (98-107) mmol/L Carbon Dioxide (22-30) mmol/L BUN 66 H (9-20) mg/dL Creatinine 7.45 H* (0.66-1.25) mg/dL Glucose (74-99) mg/dL Calcium (8.4-10.2) mg/dL C-Reactive Protein (<1.0) mg/dL Crossmatch See Detail Microbiology - Last 24 Hours (Table) 10/24/21 09:58 Blood Culture - Preliminary Blood No Growth after 24 hours 10/23/21 07:47 Blood Culture Gram Stain - Preliminary Blood Blood Culture - Preliminary Staphylococcus aureus 10/24/21 17:46 Gram Stain - Preliminary Knee - Left Body Fluid Culture - Preliminary 10/24/21 17:46 Gram Stain - Preliminary Synovial Fluid Body Fluid Culture - Preliminary 10/23/21 07:47 Blood Culture - Final Blood 10/22/21 12:22 Blood Culture Gram Stain - Preliminary Blood Blood Culture - Preliminary Presumptive Staph aureus 10/19/21 19:30 Blood Culture Gram Stain - Final Blood Blood Culture - Final Staphylococcus aureus 10/21/21 13:50 Blood Culture Gram Stain - Final Blood Blood Culture - Final Staphylococcus aureus Assessment and Plan (1) Positive blood culture Current Visit: No Status: Acute Code(s): R78.81 - BACTEREMIA SNOMED Code(s): 104987297 Plan: 1patient presented to hospital with sepsis source is likely dialysis catheter infection in this patient who did have a staphylococcal bacteremia which has bee n finalized as MSSA 2the patient dialysis catheter has been removed and tip has been sent for the c ulture which came back positive with MSSA 3patient did have a temporary dialysis catheter placed and has been started on dialysis, patient to continue with cefazolin awaiting aspirate of the knee area this afternoon Time with Patient: Less than 30
--- NOTE | 2021-10-26 18:32 | P.PN ---
Subjective Progress Note Date: 10/26/21 Principal diagnosis: Bacteremia Patient is a 26 year male with a past medical history significant for end-stage renal disease on hemodialysis presented to hospital with sepsis and bacteremia secondary to dialysis catheter infection which was removed the evening of 10/20/2021. Patient is status post I and D of the left knee and hip and ankle area completed 10/25/2021 On today's evaluation that is 10/26/2021, the patient denies any fever or chills , the patient denies chest pain or shortness of breath or cough , the patient denies abdominal pain and no diarrhea, patient denies any worsening pain to the left knee or ankle area Objective - Vital Signs Vital signs: Vital Signs Temp 99.1 F 10/26/21 12:23 Pulse 121 H 10/26/21 12:23 Resp 16 10/26/21 11:34 BP 165/79 10/26/21 12:23 Pulse Ox 96 10/26/21 11:34 FiO2 Intake & Output 10/25/21 10/26/21 10/26/21 18:59 06:59 18:59 Intake Total 1160 50 Output Total 2551 60 Balance -1391 -10 Weight 72.5 kg Intake: IV 550 50 Blood Product 310 Rc As-1 Unit 310 [id number] Hemodialysis 300 Output: Drainage 60 Left Ankle 0 Left Hip 40 Left Knee 20 Stool 1 Hemodialysis 2500 Estimated Blood Loss 50 Other: Voiding Method Toilet Urinal Urinal Urinal # Voids 0 - Exam GENERAL DESCRIPTION: Young male lying in bed in no distress RESPIRATORY SYSTEM: Unlabored breathing , decreased breath sounds at bases HEART: S1 S2 regular rate and rhythm , ABDOMEN: Soft , no tenderness EXTREMITIES: No edema feet - Labs CBC & Chem 7: 10/26/21 08:17 10/26/21 08:17 Labs: Abnormal Lab Results - Last 24 Hours (Table) 10/25/21 10/26/21 10/26/21 Range/Units 09:20 08:17 08:17 WBC 15.4 H (3.8-10.6) k/uL RBC 2.45 L (4.30-5.90) m/uL Hgb 7.1 L (13.0-17.5) gm/dL Hct 23.0 L (39.0-53.0) % MCHC 30.9 L (31.0-37.0) g/dL RDW 19.4 H (11.5-15.5) % Neutrophils # 13.0 H (1.3-7.7) k/uL Sodium 130 L (137-145) mmol/L Chloride 94 L (98-107) mmol/L BUN 60 H (9-20) mg/dL Creatinine 8.08 H* (0.66-1.25) mg/dL Glucose 110 H (74-99) mg/dL Crossmatch See Detail Microbiology - Last 24 Hours (Table) 10/24/21 09:58 Blood Culture Gram Stain - Preliminary Blood Blood Culture - Preliminary Presumptive Staph aureus 10/23/21 07:47 Blood Culture Gram Stain - Preliminary Blood Blood Culture - Preliminary Staphylococcus aureus 10/22/21 12:22 Blood Culture Gram Stain - Final Blood Blood Culture - Final Staphylococcus aureus 10/25/21 00:22 Blood Culture Gram Stain - Preliminary Blood 10/25/21 17:44 Gram Stain - Preliminary Hip - Left Wound Culture - Preliminary 10/25/21 17:44 Gram Stain - Preliminary Ankle - Left Wound Culture - Preliminary 10/25/21 17:44 Gram Stain - Preliminary Ankle - Left Tissue Culture - Preliminary 10/25/21 17:44 Gram Stain - Preliminary Leg - Left Wound Culture - Preliminary 10/25/21 17:44 Gram Stain - Preliminary Knee - Left Wound Culture - Preliminary 10/25/21 17:44 Gram Stain - Preliminary Hip - Left Tissue Culture - Preliminary 10/25/21 00:22 Blood Culture - Final Blood 10/25/21 17:44 Anaerobic Culture - Preliminary Hip - Left 10/25/21 17:44 Anaerobic Culture - Preliminary Ankle - Left 10/25/21 17:44 Anaerobic Culture - Preliminary Knee - Left 10/25/21 17:44 Anaerobic Culture - Preliminary Leg - Left 10/24/21 17:46 Gram Stain - Preliminary Knee - Left Body Fluid Culture - Preliminary 10/24/21 09:58 Blood Culture - Final Blood Assessment and Plan (1) Positive blood culture Current Visit: No Status: Acute Code(s): R78.81 - BACTEREMIA SNOMED Code(s): 925779095 Plan: 1patient presented to hospital with sepsis source is likely dialysis catheter infection in this patient who did have a staphylococcal bacteremia which has been finalized as MSSA 2the patient dialysis catheter has been removed and tip has been sent for the culture which came back positive with MSSA. 3patient is status post I&D of the left hip and ankle in the area was cultures are currently pending 4patient did have persistent bacteremia hence will obtain echocardiogram to make sure no evidence of any vegetation 5we'll discontinue cefazolin and start patient on Naficillin Time with Patient: Less than 30
[2021-10-27] MEDS: NAFCILLIN 2 GM in DEXTROSE 5% IN WATER 100 ML IVPB SCH ×14 (00:13→23:34)
[2021-10-27] MEDS: MORPHINE SULFATE 4 MG/ML SYRINGE IVP PRN (00:15)
[2021-10-27] MEDS: ACETAMINOPHEN TAB 325 MG TAB PO PRN ×2 (03:55→09:37)
--- NOTE | 2021-10-27 05:03 | MR ---
EXAMINATION TYPE: MR ankle LT wo con DATE OF EXAM: 10/26/2021 COMPARISON: None HISTORY: Pain and swelling Multiplanar multiecho imaging of the left ankle with no contrast. There is ankle joint effusion and subtalar effusion. Achilles tendon is intact. The plantar fascia ap pears intact. No fracture seen. There is subcutaneous edema around the ankle. Ankle mortise is anatom ic medial and lateral flexor tendons appear intact. The talus and calcaneus appear intact. There is A chilles calcaneal spurring. No evidence of collateral ligament tear. IMPRESSION: Extensive joint effusion consistent with some nonspecific synovitis. No evidence of ligamentous tear. No fracture. Subcutaneous edema.
--- NOTE | 2021-10-27 05:12 | MR ---
EXAMINATION TYPE: MR foot LT wo con DATE OF EXAM: 10/26/2021 COMPARISON: None HISTORY: Pain and swelling. Renal failure FINDINGS: Multiplanar and multiecho imaging of the foot obtained with no contrast. There is subcutaneous edema of the forefoot. Metatarsals are intact. No fracture seen. No bone edema. No evidence of edema in the toes. The tarsal bones appear intact without evidence of a fracture. Med ial and lateral flexor tendons appear intact. No evidence of a soft tissue mass. IMPRESSION: Moderate subcutaneous edema of the forefoot. No evidence of an abscess. No fracture. No evidence of o steomyelitis.
[2021-10-27] MEDS: SEVELAMER 800 MG TAB PO SCH ×3 (06:15→17:19)
[2021-10-27] MEDS: THIAMINE 100 MG TAB PO SCH ×2 (06:15→17:19)
--- NOTE | 2021-10-27 07:56 | P.PN ---
Progress Note - Text Progress Note Date: 10/27/21 The patient has been seen and examined at bedside today. He has undergone his procedures for his lower extremity and he feels that there is significant improvement in his leg feels. He feels he is making good progress steadily. He is tolerating pain adequately. He is Hemovacs intact in his lower extremity. He denies any fevers or chills. In regards to his back he says that his back is doing great. He feels that the pain in his back was prepped due to all the pain in his hip but now he is doing quite well and is not having pain in his lower back. I do not plan further intervention or imaging at this point for his spine. He should continue his management as per medicine, nephrology, infectious disease as well as his care with Dr. Stokes postoperatively. From a spine standpoint we can follow him on an as-needed basis
--- NOTE | 2021-10-27 08:47 | P.PN ---
Subjective Progress Note Date: 10/26/21 Sepsis with blood cultures positive for gram-positive cocci Acute delirium from sepsis End-stage kidney disease on hemodialysis 26-year-old patient, follows with Dr. Travis moore. Chronic stable medical conditions include end-stage kidney disease on hemodialysis Sunday and Sunday, essential hypertension, secondary hyperparathyroidism. Patient came in because of not feeling well. Unsteady weak diet and rundown. Unsure about fever. Blood drawn at the nephrology dialysis center was positive for gram- positive cocci. IV vancomycin was given. Patient is slightly delirious. Consultation nephrology denies D was done. Appetite fair denies any respiratory or urinary symptoms. Admitted with sepsis with positive blood culture from the dialysis center, delirium. IV vancomycin started. October 20: Tired. Decreased oral intake. Dialysis catheter to be taken out today. Patient received dialysis yesterday. Discussed with patient. Tired. Repeat blood cultures from yesterday growing staph aureus. October 21: Less delirious today. Dialysis catheter has been removed yesterday. Blood cultures from here growing staph aureus. Patient not hungry. Did not eat his breakfast. Tired. Patient complaining of pain around the left hip area. I ordered Doppler ultrasound that came back to be negative. Hip x-ray was also ordered and came back to be unremarkable. Orthopedics consulted. 10/23/2021 Patient is seen and evaluated in room at bedside; patient complains of generalized pain more so in Lasix; no complaint of chest pain or shortness of breath Vital signs are reviewed; blood pressure 169/98, pulse 111 Lab review shows a sodium of 123 which is down from 126 yesterday, potassium 5.9, bicarbonate 18, BUN/creatinine of 142/13.1 Repeat blood cultures drawn yesterday are reported positive; plan was to reinsert permacath if blood cultures were negative; nephrology recommending to proceed with placement of Angel catheter and dialyze the patient today and tomorrow due to worsening hyponatremia with plans to remove catheter after dialysis; patient will have a permacath placement once her cultures turn negative with possibility of paratonia dialysis in the meantime 10/24/2021 Patient is seen in follow-up this morning currently receiving hemodialysis. Multiple medical consultations including nephrology and infectious disease following. Blood cultures and catheter tip culture showing staph aureus and awaiting for bacteremia clearance. Patient will also need replacement dialysis catheter once cleared by infectious disease. Patient is currently maintained on 1500 mL fluid restrictions and will slightly increase as patient reports he is thirsty and not getting enough intake. Patient is currently afebrile and denies any chest pain or palpitations. 10/25/2021 Patient is seen in follow-up this morning and hemoglobin was found to be 6.8 and will transfuse 1 unit of PRBC. Patient is scheduled to undergo incision and drainage with possible debridement of the left hip and left lower extremity with orthopedics today. Patient also to have dialysis catheter removed by vascular surgery. Patient continues on fluid restrictions and is currently nothing by mouth for the procedure and diuretics being held. No plans for hemodialysis today. Patient is maintained on Sunday/Sunday/Sunday schedule and will continue with nephrology following closely. Patient is also maintained on IV antibiotics with infectious disease following closely and will continue. Mariusz brooks culture showing MSSA and hopeful for cultures during surgery today. She is currently afebrile and denies chest pain or shortness of breath. Patient reports left leg pain. 10/26/2021 Patient is seen in follow-up today status post incision and drainage of the left lower extremity and left hip with orthopedics in currently maintained on IV antibiotics in the form of cefazolin with anxiety following closely. Patient being transitioned to nafcillin while awaiting for finalized cultures of the deep tissue cultures that were obtained during surgery. Patient had dialysis catheter removed and waiting prior to insertion of new catheter. 2-D echo was also ordered to assess for any vegetation. Patient continues with fevers and denies any chest pain or shortness of breath. Hemoglobin was 7.1 today after 1 unit of PRBCs yesterday. WBC trending up at 15.4 and BNP is noted with a creat inine of 8.08. Recommend close monitoring of vital signs and temperature control and continue to await for cultures. Patient reports his pain is currently manageable and denies any chest pain or shortness of breath. Review of systems: Constitutional: No reports of fatigue, fever, or chills Cardiovascular: No reports of chest pain or palpitations Respiratory: No reports of shortness of breath or cough GI: No reports of nausea, vomiting, or diarrhea : No reports of dysuria or retention Neurovascular: reports of generalized weakness All medications have been reviewed Physical exam: Gen: This is a 26-year-old male awake, alert and oriented 3, thin built HEENT: Head is atraumatic, normocephalic. Pupils equal, round. Sclerae is anicteric. NECK: Supple. No JVD. No lymphadenopathy. No thyromegaly. LUNGS: Diminished breath sounds bilaterally with some scattered rhonchi and crackles noted. No intercostal retractions. HEART: S1, S2 are muffled ABDOMEN: Soft. Bowel sounds are present. No masses. No tenderness. EXTREMITIES: No pedal edema. No calf tenderness. Left hip and lower extremity surgical dressings dry with drainage tubes noted. Left lower extremity elevated on pillows NEUROLOGICAL: Patient is awake, alert and oriented x3. Cranial nerves 2 through 12 are grossly intact. Assessment: Sepsis with positive blood cultures showing gram-positive cocci and growing staph aureus from the dialysis center Status post dialysis catheter removal Status post incision and drainage of the left hip, knee, ankle for fluid collections and effusions with the possibility of septic arthritis cultures have been obtained and pending Acute delirium from sepsis, improved End-stage renal disease on hemodialysis Sunday/Sunday/Sunday Anemia of chronic disease Chronic kidney disease Left hip and upper thigh pain possibly musculoskeletal strain, Doppler ul trasound was negative for DVT GI prophylaxis DVT prophylaxis Full code Plan: Patient is currently maintained on hemodialysis and will continue on Sunday/Sunday/Sunday with nephrology following closely. No plans for dialysis today and will continue current regimen. Awaiting cultures and clear ance from ID for insertion of new dialysis catheter Hemoglobin 7.1 and will monitor closely and transfuse as 7 or less Patient is currently that is post for I&D and/or debridement of the left hip kne e and ankle with orthopedics today and will await surgical report. Deep cultures obtained and awaiting for finalized cultures and IV antibiotics switched to nafcillin and cefazolin was discontinued Most recent repeat blood cultures have been negative and previous culture showing MSSA and deep tissue cultures have been obtained with debridement and will await finalized cultures Recommend continue with 2000 mL fluid restriction and close monitoring of intake and output Will need to discuss further with infectious disease about discharge planning of continued antibiotic therapy and if requiring IV antibiotic therapy or is to receive with hemodialysis, patient will also require a new dialysis catheter placement vascular surgery is following Due to multiple complex medical issues, prognosis is guarded The impression and plan of care has been dictated by Vee Honeycutt Nurse Rafael otto as directed. Dr. Elder MD I have performed a history and examination and MDM of this patient, discussed the same with the dictator, and agree with the dictator's assessment and plan as written ,documented as a scribe. Based on total visit time, I have performed more than 50% of the visit. Objective - Vital Signs Vital signs: Vital Signs Temp 98.5 F 10/26/21 03:23 Pulse 109 H 10/26/21 03:23 Resp 12 10/26/21 03:23 BP 149/78 10/26/21 03:23 Pulse Ox 98 10/26/21 03:23 FiO2 Intake & Output 10/25/21 10/26/21 10/26/21 18:59 06:59 18:59 Intake Total 1160 50 Output Total 2551 60 Balance -1391 -10 Intake: IV 550 50 Blood Product 310 Rc As-1 Unit 310 [id number] Hemodialysis 300 Output: Drainage 60 Left Ankle 0 Left Hip 40 Left Knee 20 Stool 1 Hemodialysis 2500 Estimated Blood Loss 50 Other: Voiding Method Toilet Urinal Urinal # Voids 0 - Labs CBC & Chem 7: 10/26/21 08:17 10/26/21 08:17 Labs: Abnormal Lab Results - Last 24 Hours (Table) 10/25/21 10/25/21 Range/Units 07:46 09:20 Sodium 131 L (137-145) mmol/L Chloride 92 L (98-107) mmol/L BUN 66 H (9-20) mg/dL Creatinine 7.45 H* (0.66-1.25) mg/dL Crossmatch See Detail Microbiology - Last 24 Hours (Table) 10/25/21 17:44 Gram Stain - Preliminary Ankle - Left Tissue Culture - Preliminary 10/25/21 17:44 Gram Stain - Preliminary Leg - Left Wound Culture - Preliminary 10/25/21 17:44 Gram Stain - Preliminary Knee - Left Wound Culture - Preliminary 10/25/21 17:44 Gram Stain - Preliminary Hip - Left Tissue Culture - Preliminary 10/25/21 00:22 Blood Culture Gram Stain - Preliminary Blood 10/25/21 00:22 Blood Culture - Final Blood 10/25/21 17:44 Anaerobic Culture - Preliminary Hip - Left 10/25/21 17:44 Wound Culture - Preliminary Hip - Left 10/25/21 17:44 Wound Culture - Preliminary Ankle - Left 10/25/21 17:44 Anaerobic Culture - Preliminary Ankle - Left 10/25/21 17:44 Anaerobic Culture - Preliminary Knee - Left 10/25/21 17:44 Anaerobic Culture - Preliminary Leg - Left 10/24/21 17:46 Gram Stain - Preliminary Knee - Left Body Fluid Culture - Preliminary 10/24/21 09:58 Blood Culture Gram Stain - Preliminary Blood 10/22/21 12:22 Blood Culture Gram Stain - Final Blood Blood Culture - Final Staphylococcus aureus 10/24/21 09:58 Blood Culture - Final Blood 10/23/21 07:47 Blood Culture Gram Stain - Preliminary Blood Blood Culture - Preliminary Staphylococcus aureus 10/24/21 17:46 Gram Stain - Preliminary Synovial Fluid Body Fluid Culture - Preliminary 10/23/21 07:47 Blood Culture - Final Blood
[2021-10-27] MEDS: HYDROcodone/APAP 5-325MG 1 EACH TAB PO PRN ×2 (09:37→23:33)
[2021-10-27] MEDS: TORSEMIDE 20 MG TAB PO SCH (09:37)
[2021-10-27] MEDS: MULTIVITAMINS, THERA 1 EACH TAB PO SCH (09:38)
[2021-10-27 09:41] LABS: Calcium 8.3 mg/dL (8.4-10.2); Potassium 5.1 mmol/L (3.5-5.1)
[2021-10-27 09:44] LABS: Anisocytosis Slight; Basophils % (A) 0 %; Eosinophils # (A) 0.2 k/uL (0-0.7); Eosinophils % (A) 1 %; HCT 22.2 % (39.0-53.0); Hypochromasia Moderate; Lymphocytes # (A) 1.6 k/uL (1.0-4.8); Lymphocytes % (A) 9 %; MCH 28.8 pg (25.0-35.0); MCV 93.1 fL (80.0-100.0); Mean Platelet Volume 7.3; Monocytes # (A) 0.5 k/uL (0-1.0); Monocytes % (A) 3 %; Neutrophils % (A) 85 %; Platelet Count 496 k/uL (150-450); RBC 2.38 m/uL (4.30-5.90); RDW 19.4 % (11.5-15.5); WBC 16.5 k/uL (3.8-10.6)
[2021-10-27 09:48] LABS: HGB 6.9 gm/dL (13.0-17.5)
--- NOTE | 2021-10-27 10:52 | P.PN ---
Subjective Progress Note Date: 10/27/21 This patient is a 26- year old male who is status-post I&D left hip, left knee, left ankle for presumed septic arthritis, and irrigation and debridement left calf for hematoma versus abscess on 10/25/21. Today is post-operative day #2. Patient states his left lower extremity pain has improved significantly compared to yesterday. He states he is doing well with no new complaints today. Objective - Vital Signs Vital signs: Vital Signs Temp 99.4 F 10/27/21 03:53 Pulse 104 H 10/27/21 03:53 Resp 12 10/27/21 03:53 BP 161/79 10/27/21 03:53 Pulse Ox 97 10/27/21 03:53 FiO2 Intake & Output 10/26/21 10/27/21 10/27/21 18:59 06:59 18:59 Output Total 0 10 Balance 0 -10 Weight 72.5 kg Output: Drainage 10 Left Ankle 0 Left Hip 10 Left Knee 0 Urine 0 Other: Voiding Method Urinal Urinal # Voids 0 - Exam On examination, patient is sitting up in bed in no apparent distress. He is alert and oriented 3. On inspection of the left lower extremity, there is an SRIRAM wrap in place. There are hemovac drains present at the left hip, left knee, and left ankle. SRIRAM wrap is removed and reveals clean, dry, intact dressings in place over the right hip, right knee, right calf, and right ankle. Hemovac drains removed bedside this morning. There is minimal pain with palpation of the left hip, thigh, knee, calf, ankle, foot. Patient is able to wiggle toes appropriately. Foot is warm and well perfused. - Labs CBC & Chem 7: 10/27/21 08:40 10/27/21 08:40 Labs: Abnormal Lab Results - Last 24 Hours (Table) 10/25/21 10/27/21 10/27/21 Range/Units 09:20 08:40 08:40 WBC 16.5 H (3.8-10.6) k/uL RBC 2.38 L (4.30-5.90) m/uL Hgb 6.9 L* (13.0-17.5) gm/dL Hct 22.2 L (39.0-53.0) % RDW 19.4 H (11.5-15.5) % Plt Count 496 H (150-450) k/uL Neutrophils # 14.0 H (1.3-7.7) k/uL Sodium 126 L (137-145) mmol/L Chloride 89 L (98-107) mmol/L BUN 80 H (9-20) mg/dL Creatinine 9.89 H* (0.66-1.25) mg/dL Calcium 8.3 L (8.4-10.2) mg/dL Crossmatch See Detail Microbiology - Last 24 Hours (Table) 10/25/21 17:44 Gram Stain - Preliminary Hip - Left Tissue Culture - Preliminary 10/25/21 17:44 Gram Stain - Preliminary Leg - Left Wound Culture - Preliminary 10/25/21 17:44 Gram Stain - Preliminary Hip - Left Wound Culture - Preliminary 10/24/21 17:46 Gram Stain - Preliminary Synovial Fluid Body Fluid Culture - Preliminary Presumptive Staph aureus 10/24/21 17:46 Gram Stain - Preliminary Knee - Left Body Fluid Culture - Preliminary 10/20/21 16:00 Catheter Tip Culture - Final Catheter Tip Staphylococcus aureus 10/24/21 09:58 Blood Culture Gram Stain - Preliminary Blood Blood Culture - Preliminary Presumptive Staph aureus 10/23/21 07:47 Blood Culture Gram Stain - Preliminary Blood Blood Culture - Preliminary Staphylococcus aureus 10/22/21 12:22 Blood Culture Gram Stain - Final Blood Blood Culture - Final Staphylococcus aureus 10/25/21 00:22 Blood Culture Gram Stain - Preliminary Blood 10/25/21 17:44 Gram Stain - Preliminary Ankle - Left Wound Culture - Preliminary 10/25/21 17:44 Gram Stain - Preliminary Ankle - Left Tissue Culture - Preliminary 10/25/21 17:44 Gram Stain - Preliminary Knee - Left Wound Culture - Preliminary Assessment and Plan Assessment: Status-post I&D left hip, left knee, left ankle for presumed septic arthritis, and irrigation and debridement left calf for hematoma versus abscess on 10/25/21. Post-operative day #2. Plan: - Patient may weight bear as tolerated on left lower extremity with a walker. PT consulted for mobilization. - Keep surgical dressings in place. Hemovac drains removed bedside today. - Pain management as needed. - Will follow multiple intra-op cultures. Cultures from synovial fluid aspirate performed on 10/24/21 showing presumptive staph aureus. Antibiotics per infectious disease. - DVT prophylaxis per internal medicine. - We have no further plans for additional surgical intervention at this time. - We will follow patient closely.
--- NOTE | 2021-10-27 12:19 | CA ---
Transthoracic Echo Report Name: Armond Busby Age: 26 Gender: M : 1995 Exam Date: 10/27/2021 08:00 Exam Location: [facility] Ht (in): 72 Wt (lb): 159 Ordering Physician: Osei Jacinto MD Attending/Referring Phys: Law Professor Luz Pederson RDCS Procedure CPT: Indications: bacteremia Cardiac Hx: Hx of renal disease Technical Quality: Good Contrast 1: Total Dose (mL): Contrast 2: Total Dose (mL): MEASUREMENTS (Male / Female) Normal Values 2D ECHO LV Diastolic Diameter PLAX 4.9 cm 4.2 - 5.9 / 3.9 - 5.3 cm LV Systolic Diameter PLAX 3.1 cm IVS Diastolic Thickness 1.4 cm 0.6 - 1.0 / 0.6 - 0.9 cm LVPW Diastolic Thickness 1.6 cm 0.6 - 1.0 / 0.6 - 0.9 cm LV Relative Wall Thickness 0.6 M-MODE Aortic Root Diameter MM 3.6 cm LA Systolic Diameter MM 2.6 cm LA Ao Ratio MM 0.7 MV E Point Septal Separation 0.8 cm AV Cusp Separation MM 1.9 cm DOPPLER AV Peak Velocity 140.0 cm/s AV Peak Gradient 7.8 mmHg MV Area PHT 6.1 cm??? MR Peak Velocity 150.7 cm/s MR Peak Gradient 9.1 mmHg Mitral E Point Velocity 139.5 cm/s Mitral A Point Velocity 94.4 cm/s Mitral E to A Ratio 1.5 MV Deceleration Time 125.1 ms MV E' Velocity 9.9 cm/s Mitral E to MV E' Ratio 14.1 TR Peak Velocity 154.3 cm/s TR Peak Gradient 9.5 mmHg Right Ventricular Systolic Press 14.5 mmHg PV Peak Velocity 164.5 cm/s PV Peak Gradient 10.8 mmHg FINDINGS Left Ventricle Moderately increased septal wall thickness. Left ventricular ejection fraction is estimated at 55-60_ %. Left ventricular cavity size normal. Right Ventricle The right ventricle is normal in size and function. Right Atrium The right atrium is normal in size. Left Atrium The left atrium is normal in size. Mitral Valve Structurally normal mitral valve without significant stenosis or prolapse. There is mild mitral regurgitation. Aortic Valve Structurally normal aortic valve without significant sclerosis or stenosis. There is no aortic regurgitation. Tricuspid Valve Structurally normal tricuspid valve without significant stenosis. Pulmonary artery systolic pressure is normal. Mild tricuspid regurgitation. Pulmonic Valve Structurally normal pulmonic valve without significant stenosis. There is no pulmonic regurgitation. Pericardium Minimal pericardial effusion Aorta Normal aortic root dimension. CONCLUSIONS Normal LV systolic function mild mitral regurgitation mild tricuspid regurgitation Previewed by: Dr. Chrisitan Stewart MD (Electronically Signed) Final Date: 27 October 2021 12:18
--- NOTE | 2021-10-27 13:00 | P.PN ---
Subjective Patient is seen for follow-up for end-stage renal disease and the underlying bacteremia. Patient's blood cultures are growing staph aureus, MSSA. Blood cultures have been persistently positive. IJ permacath has been discontinued. Patient had a right femoral catheter which was removed on 10/25/2021 He was dialyzed 10/23/2021, 10/24/2021 and 10/25/2021 Patient is status post I&D of the left hip left knee and left ankle an irrigation and debridement of left calf No significant complaints today and Pain seems to have improved. Blood cultures were redrawn today. Blood cultures as of 10/25/2021 were still positive. Objective - Vital Signs Vital signs: Vital Signs Temp 99.4 F 10/27/21 03:53 Pulse 112 H 10/27/21 09:25 Resp 16 10/27/21 09:25 BP 161/79 10/27/21 03:53 Pulse Ox 97 10/27/21 03:53 FiO2 Intake & Output 10/26/21 10/27/21 10/27/21 18:59 06:59 18:59 Output Total 0 10 601 Balance 0 -10 -601 Weight 72.5 kg Output: Drainage 10 Left Ankle 0 Left Hip 10 Left Knee 0 Urine 0 600 Stool 1 Other: Voiding Method Urinal Urinal Urinal # Voids 0 - Exam Awake, comfortable, not in any acute distress Alert oriented 3 Examination of the heart S1 and S2 Examination lungs bilateral breath sounds are heard Abdomen is soft nontender Exertion lower extremity shows edema left knee with the knee effusion and tenderness. Left foot also appears edematous and tender [employer] exam grossly intact. Left leg mobility decreased secondary to pain and swelling - Labs CBC & Chem 7: 10/27/21 08:40 10/27/21 08:40 Labs: Abnormal Lab Results - Last 24 Hours (Table) 10/25/21 10/27/21 10/27/21 Range/Units 09:20 08:40 08:40 WBC 16.5 H (3.8-10.6) k/uL RBC 2.38 L (4.30-5.90) m/uL Hgb 6.9 L* (13.0-17.5) gm/dL Hct 22.2 L (39.0-53.0) % RDW 19.4 H (11.5-15.5) % Plt Count 496 H (150-450) k/uL Neutrophils # 14.0 H (1.3-7.7) k/uL Sodium 126 L (137-145) mmol/L Chloride 89 L (98-107) mmol/L BUN 80 H (9-20) mg/dL Creatinine 9.89 H* (0.66-1.25) mg/dL Calcium 8.3 L (8.4-10.2) mg/dL Crossmatch See Detail Microbiology - Last 24 Hours (Table) 10/25/21 17:44 Gram Stain - Preliminary Hip - Left Tissue Culture - Preliminary 10/25/21 17:44 Gram Stain - Preliminary Leg - Left Wound Culture - Preliminary 10/25/21 17:44 Gram Stain - Preliminary Hip - Left Wound Culture - Preliminary 10/24/21 17:46 Gram Stain - Preliminary Synovial Fluid Body Fluid Culture - Preliminary Presumptive Staph aureus 10/24/21 17:46 Gram Stain - Preliminary Knee - Left Body Fluid Culture - Preliminary 10/20/21 16:00 Catheter Tip Culture - Final Catheter Tip Staphylococcus aureus 10/24/21 09:58 Blood Culture Gram Stain - Preliminary Blood Blood Culture - Preliminary Presumptive Staph aureus 10/23/21 07:47 Blood Culture Gram Stain - Preliminary Blood Blood Culture - Preliminary Staphylococcus aureus 10/22/21 12:22 Blood Culture Gram Stain - Final Blood Blood Culture - Final Staphylococcus aureus 10/25/21 00:22 Blood Culture Gram Stain - Preliminary Blood 10/25/21 17:44 Gram Stain - Preliminary Ankle - Left Wound Culture - Preliminary Assessment and Plan Assessment: 1. End-stage renal disease on hemodialysis on a Sunday schedule. IJ permacath has been removed 2. MSSA bacteremia which is persistent. Status post removal of IJ permacath and placement of temporary femoral catheter on 10/23/2021 and subsequent removal on 10/25/2021 3. Hyperkalemia associated with end-stage renal disease, expect improvement with dialysis 4. Hyponatremia associated with end-stage renal disease expect improvement post dialysis Plan: Continue to monitor labs daily Patient may need a temporary catheter again tomorrow based on his labs Continue antibiotics Follow-up on blood cultures
--- NOTE | 2021-10-28 00:08 | P.PN ---
Subjective Progress Note Date: 10/27/21 Sepsis with blood cultures positive for gram-positive cocci Acute delirium from sepsis End-stage kidney disease on hemodialysis 26-year-old patient, follows with Dr. Travis moore. Chronic stable medical conditions include end-stage kidney disease on hemodialysis Sunday and Sunday, essential hypertension, secondary hyperparathyroidism. Patient came in because of not feeling well. Unsteady weak diet and rundown. Unsure about fever. Blood drawn at the nephrology dialysis center was positive for gram- positive cocci. IV vancomycin was given. Patient is slightly delirious. Consultation nephrology denies D was done. Appetite fair denies any respiratory or urinary symptoms. Admitted with sepsis with positive blood culture from the dialysis center, delirium. IV vancomycin started. October 20: Tired. Decreased oral intake. Dialysis catheter to be taken out today. Patient received dialysis yesterday. Discussed with patient. Tired. Repeat blood cultures from yesterday growing staph aureus. October 21: Less delirious today. Dialysis catheter has been removed yesterday. Blood cultures from here growing staph aureus. Patient not hungry. Did not eat his breakfast. Tired. Patient complaining of pain around the left hip area. I ordered Doppler ultrasound that came back to be negative. Hip x-ray was also ordered and came back to be unremarkable. Orthopedics consulted. 10/23/2021 Patient is seen and evaluated in room at bedside; patient complains of generalized pain more so in Lasix; no complaint of chest pain or shortness of breath Vital signs are reviewed; blood pressure 169/98, pulse 111 Lab review shows a sodium of 123 which is down from 126 yesterday, potassium 5.9, bicarbonate 18, BUN/creatinine of 142/13.1 Repeat blood cultures drawn yesterday are reported positive; plan was to reinsert permacath if blood cultures were negative; nephrology recommending to proceed with placement of Angel catheter and dialyze the patient today and tomorrow due to worsening hyponatremia with plans to remove catheter after dialysis; patient will have a permacath placement once her cultures turn negative with possibility of paratonia dialysis in the meantime 10/24/2021 Patient is seen in follow-up this morning currently receiving hemodialysis. Multiple medical consultations including nephrology and infectious disease following. Blood cultures and catheter tip culture showing staph aureus and awaiting for bacteremia clearance. Patient will also need replacement dialysis catheter once cleared by infectious disease. Patient is currently maintained on 1500 mL fluid restrictions and will slightly increase as patient reports he is thirsty and not getting enough intake. Patient is currently afebrile and denies any chest pain or palpitations. 10/25/2021 Patient is seen in follow-up this morning and hemoglobin was found to be 6.8 and will transfuse 1 unit of PRBC. Patient is scheduled to undergo incision and drainage with possible debridement of the left hip and left lower extremity with orthopedics today. Patient also to have dialysis catheter removed by vascular surgery. Patient continues on fluid restrictions and is currently nothing by mouth for the procedure and diuretics being held. No plans for hemodialysis today. Patient is maintained on Sunday/Sunday/Sunday schedule and will continue with nephrology following closely. Patient is also maintained on IV antibiotics with infectious disease following closely and will continue. Mariusz brooks culture showing MSSA and hopeful for cultures during surgery today. She is currently afebrile and denies chest pain or shortness of breath. Patient reports left leg pain. 10/26/2021 Patient is seen in follow-up today status post incision and drainage of the left lower extremity and left hip with orthopedics in currently maintained on IV antibiotics in the form of cefazolin with anxiety following closely. Patient being transitioned to nafcillin while awaiting for finalized cultures of the deep tissue cultures that were obtained during surgery. Patient had dialysis catheter removed and waiting prior to insertion of new catheter. 2-D echo was also ordered to assess for any vegetation. Patient continues with fevers and denies any chest pain or shortness of breath. Hemoglobin was 7.1 today after 1 unit of PRBCs yesterday. WBC trending up at 15.4 and BNP is noted with a creat inine of 8.08. Recommend close monitoring of vital signs and temperature control and continue to await for cultures. Patient reports his pain is currently manageable and denies any chest pain or shortness of breath. 10/27/2021 Patient is seen today and continues on IV abx with multiple medical co nsultations following and blood cultures have been positive and awaiting repeat blood cultures for clearance of bacteremia. ID following closely and patient also remains without a dialysis catheter at this time. Patient continues with fevers as well and is status post I&D and debridement with ortho post op day 2. Patient hemoglobin is 6.9 and ordered a unit of prbc. Will hold for now and repeat am labs as patient has also not had dialysis for the last 2 days. Creatinine is 8 and nephrology following closely. Patient is extremely weak and will consult PT/OT. Patient denies chest pain or shortness of breath. Review of systems: Constitutional: No reports of fatigue, reports of fever, or chills Cardiovascular: No reports of chest pain or palpitations Respiratory: No reports of shortness of breath or cough GI: No reports of nausea, vomiting, or diarrhea : No reports of dysuria or retention Neurovascular: reports of generalized weakness All medications have been reviewed Active Medications Acetaminophen (Acetaminophen Tab 325 Mg Tab) 650 mg PO Q4HR PRN PRN Reason: Fever and/ or Pain Last Admin: 10/27/21 09:37 Dose: 650 mg Hydrocodone Bitart/Acetaminophen (Hydrocodone/Apap 5-325mg 1 Each Tab) 1 each PO Q6HR PRN PRN Reason: Pain Last Admin: 10/27/21 23:33 Dose: 1 each Darbepoetin Luis E (Darbepoetin Luis E 40 Mcg/0.4 Ml Syringe) 40 mcg SQ Q7D [facility] Last Admin: 10/26/21 11:23 Dose: 40 mcg Nafcillin Sodium 2 gm/ (Dextrose/Water) 100 mls @ 100 mls/hr IVPB Q4HR [facility]; Protocol Last Admin: 10/27/21 23:34 Dose: 100 mls/hr Lorazepam (Lorazepam 0.5 Mg Tab) 0.5 mg PO Q6HR PRN PRN Reason: Anxiety Last Admin: 10/24/21 00:02 Dose: 0.5 mg Morphine Sulfate (Morphine Sulfate 4 Mg/Ml Syringe) 4 mg IVP Q4HR PRN PRN Reason: Pain Last Admin: 10/27/21 00:15 Dose: 4 mg Multivitamins (Multivitamins, Thera 1 Each Tab) 1 each PO DAILY [facility] Last Admin: 10/27/21 09:38 Dose: 1 each Naloxone HCl (Naloxone 0.4 Mg/Ml 1 Ml Vial) 0.2 mg IV Q2M PRN PRN Reason: Opioid Reversal Sevelamer Carbonate (Sevelamer 800 Mg Tab) 1,600 mg PO TID-W/MEALS [facility] Last Admin: 10/27/21 17:19 Dose: 1,600 mg Thiamine HCl (Thiamine 100 Mg Tab) 100 mg PO BID-W/MEALS [facility] Last Admin: 10/27/21 17:19 Dose: 100 mg Torsemide (Torsemide 20 Mg Tab) 80 mg PO DAILY [facility] Last Admin: 10/27/21 09:37 Dose: 80 mg Physical exam: Gen: This is a 26-year-old male awake, alert and oriented 3, thin built HEENT: Head is atraumatic, normocephalic. Pupils equal, round. Sclerae is anicteric. NECK: Supple. No JVD. No lymphadenopathy. No thyromegaly. LUNGS: Diminished breath sounds bilaterally with some scattered rhonchi and crackles noted. No intercostal retractions. HEART: S1, S2 are muffled ABDOMEN: Soft. Bowel sounds are present. No masses. No tenderness. EXTREMITIES: No pedal edema. No calf tenderness. Left hip and lower extremity surgical dressings dry with drainage tubes noted. Left lower extremity elevated on pillows NEUROLOGICAL: Patient is awake, alert and oriented x3. Cranial nerves 2 through 12 are grossly intact. diffusely weak Assessment: Sepsis with positive blood cultures showing gram-positive cocci and growing staph aureus from the dialysis center Status post dialysis catheter removal Status post incision and drainage of the left hip, knee, ankle for fluid collections and effusions with the possibility of septic arthritis cultures have been obtained and pending Acute delirium from sepsis, improved End-stage renal disease on hemodialysis Sunday/Sunday/Sunday Anemia of chronic disease Chronic kidney disease Left hip and upper thigh pain possibly musculoskeletal strain, Doppler ultrasound was negative for DVT GI prophylaxis DVT prophylaxis Full code Plan: Patient is currently maintained on hemodialysis and will continue on Sunday/Sunday/Sunday with nephrology following closely. No dialysis today and will continue current regimen. Awaiting cultures and clearance from ID for insertion of new dialysis catheter, may need another temporary dialysis catheter for volume overload, hyponatremia, and anemia Hemoglobin 6.9 and will monitor closely and transfuse as 7 or less, a unit or dered today although concerned for worsening overload and will repeat am labs. Patient is currently status post for I&D and/or debridement of the left hip knee and ankle with orthopedics post op day 2. Deep cultures obtained and awaiting for finalized cultures and IV antibiotics in the form of nafcillin Most recent repeat blood cultures have been negative and previous culture showing MSSA and deep tissue cultures have been obtained with I&D and will await finalized cultures Recommend continue with 2000 mL fluid restriction and close monitoring of intake and output Will need to discuss further with infectious disease about discharge planning of continued antibiotic therapy and if requiring IV antibiotic therapy or is to receive with hemodialysis, patient will also require a new dialysis catheter placement vascular surgery is following Patient has not been up and moving post surgery and will consult PT/OT Due to multiple complex medical issues, prognosis is guarded The impression and plan of care has been dictated by Vee Honeycutt, Nurse Practitioner as directed. Dr. Elder MD I have performed a history and examination and MDM of this patient, discussed the same with the dictator, and agree with the dictator's assessment and plan as written ,documented as a scribe. Based on total visit time, I have performed more than 50% of the visit. Objective - Vital Signs Vital signs: Vital Signs Temp 99.4 F 10/27/21 03:53 Pulse 104 H 10/27/21 03:53 Resp 12 10/27/21 03:53 BP 161/79 10/27/21 03:53 Pulse Ox 97 10/27/21 03:53 FiO2 Intake & Output 10/26/21 10/27/21 10/27/21 18:59 06:59 18:59 Output Total 0 10 Balance 0 -10 Weight 72.5 kg Output: Drainage 10 Left Ankle 0 Left Hip 10 Left Knee 0 Urine 0 Other: Voiding Method Urinal Urinal # Voids 0 - Labs CBC & Chem 7: 10/27/21 08:40 10/27/21 08:40 Labs: Abnormal Lab Results - Last 24 Hours (Table) 10/26/21 10/26/21 Range/Units 08:17 08:17 WBC 15.4 H (3.8-10.6) k/uL RBC 2.45 L (4.30-5.90) m/uL Hgb 7.1 L (13.0-17.5) gm/dL Hct 23.0 L (39.0-53.0) % MCHC 30.9 L (31.0-37.0) g/dL RDW 19.4 H (11.5-15.5) % Neutrophils # 13.0 H (1.3-7.7) k/uL Sodium 130 L (137-145) mmol/L Chloride 94 L (98-107) mmol/L BUN 60 H (9-20) mg/dL Creatinine 8.08 H* (0.66-1.25) mg/dL Glucose 110 H (74-99) mg/dL Microbiology - Last 24 Hours (Table) 10/25/21 17:44 Gram Stain - Preliminary Hip - Left Tissue Culture - Preliminary 10/25/21 17:44 Gram Stain - Preliminary Leg - Left Wound Culture - Preliminary 10/25/21 17:44 Gram Stain - Preliminary Hip - Left Wound Culture - Preliminary 10/24/21 17:46 Gram Stain - Preliminary Synovial Fluid Body Fluid Culture - Preliminary Presumptive Staph aureus 10/24/21 17:46 Gram Stain - Preliminary Knee - Left Body Fluid Culture - Preliminary 10/20/21 16:00 Catheter Tip Culture - Final Catheter Tip Staphylococcus aureus 10/24/21 09:58 Blood Culture Gram Stain - Preliminary Blood Blood Culture - Preliminary Presumptive Staph aureus 10/23/21 07:47 Blood Culture Gram Stain - Preliminary Blood Blood Culture - Preliminary Staphylococcus aureus 10/22/21 12:22 Blood Culture Gram Stain - Final Blood Blood Culture - Final Staphylococcus aureus 10/25/21 00:22 Blood Culture Gram Stain - Preliminary Blood 10/25/21 17:44 Gram Stain - Preliminary Ankle - Left Wound Culture - Preliminary 10/25/21 17:44 Gram Stain - Preliminary Ankle - Left Tissue Culture - Preliminary 10/25/21 17:44 Gram Stain - Preliminary Knee - Left Wound Culture - Preliminary 10/25/21 00:22 Blood Culture - Final Blood
[2021-10-28] MEDS: NAFCILLIN 2 GM in DEXTROSE 5% IN WATER 100 ML IVPB SCH ×10 (03:09→20:20)
[2021-10-28] MEDS: SEVELAMER 800 MG TAB PO SCH ×3 (05:59→17:15)
[2021-10-28] MEDS: THIAMINE 100 MG TAB PO SCH ×2 (05:59→17:15)
[2021-10-28] MEDS: MULTIVITAMINS, THERA 1 EACH TAB PO SCH (08:00)
[2021-10-28] MEDS: TORSEMIDE 20 MG TAB PO SCH (08:00)
[2021-10-28 08:42] LABS: Calcium 8.4 mg/dL (8.4-10.2); Magnesium 2.9 mg/dL (1.6-2.3)
[2021-10-28 08:52] LABS: Anisocytosis Slight; HCT 21.7 % (39.0-53.0); Hypochromasia Marked; MCH 29.7 pg (25.0-35.0); MCHC 31.6 g/dL (31.0-37.0); MCV 93.9 fL (80.0-100.0); Macrocytosis Slight; Mean Platelet Volume 7.5; Platelet Count 621 k/uL (150-450); RBC 2.31 m/uL (4.30-5.90); RDW 19.4 % (11.5-15.5); WBC 22.2 k/uL (3.8-10.6)
--- NOTE | 2021-10-28 08:52 | P.PN ---
Subjective Patient is seen for follow-up for end-stage renal disease and the underlying bacteremia. Patient's blood cultures are growing staph aureus, MSSA. Blood cultures have been persistently positive. IJ permacath has been discontinued. Patient had a right femoral catheter which was removed on 10/25/2021 He was dialyzed 10/23/2021, 10/24/2021 and 10/25/2021 Patient is status post I&D of the left hip left knee and left ankle an irrigation and debridement of left calf No significant complaints today and Pain seems to have improved. Blood cultures were redrawn 10/26/2021. Blood cultures as of 10/25/2021 were still positive. Objective - Vital Signs Vital signs: Vital Signs Temp 98.6 F 10/28/21 08:04 Pulse 106 H 10/28/21 08:04 Resp 16 10/28/21 08:04 BP 155/79 10/28/21 08:04 Pulse Ox 95 10/28/21 08:04 FiO2 Intake & Output 10/27/21 10/28/21 10/28/21 18:59 06:59 18:59 Output Total 602 Balance -602 Output: Urine 600 Stool 2 Other: Voiding Method Urinal Urinal Urinal - Exam Awake, comfortable, not in any acute distress Alert oriented 3 Examination of the heart S1 and S2 Examination lungs bilateral breath sounds are heard Abdomen is soft nontender Exertion lower extremity shows edema left knee with the knee effusion and tenderness. Left foot also appears edematous and tender [employer] exam grossly intact. Left leg mobility decreased secondary to pain and swelling - Labs CBC & Chem 7: 10/27/21 08:40 10/27/21 08:40 Labs: Abnormal Lab Results - Last 24 Hours (Table) 10/25/21 10/27/21 10/27/21 Range/Units 09:20 08:40 08:40 WBC 16.5 H (3.8-10.6) k/uL RBC 2.38 L (4.30-5.90) m/uL Hgb 6.9 L* (13.0-17.5) gm/dL Hct 22.2 L (39.0-53.0) % RDW 19.4 H (11.5-15.5) % Plt Count 496 H (150-450) k/uL Neutrophils # 14.0 H (1.3-7.7) k/uL Sodium 126 L (137-145) mmol/L Chloride 89 L (98-107) mmol/L BUN 80 H (9-20) mg/dL Creatinine 9.89 H* (0.66-1.25) mg/dL Calcium 8.3 L (8.4-10.2) mg/dL Crossmatch See Detail Microbiology - Last 24 Hours (Table) 10/23/21 07:47 Blood Culture Gram Stain - Final Blood Blood Culture - Final Staphylococcus aureus 10/25/21 17:44 Gram Stain - Preliminary Knee - Left Wound Culture - Preliminary Presumptive Staph aureus 10/25/21 17:44 Gram Stain - Preliminary Ankle - Left Tissue Culture - Preliminary Presumptive Staph aureus 10/25/21 17:44 Gram Stain - Preliminary Ankle - Left Wound Culture - Preliminary Presumptive Staph aureus 10/24/21 17:46 Gram Stain - Preliminary Synovial Fluid Body Fluid Culture - Preliminary Staphylococcus aureus 10/25/21 17:44 Gram Stain - Final Leg - Left Wound Culture - Final 10/25/21 17:44 Gram Stain - Preliminary Hip - Left Tissue Culture - Preliminary 10/25/21 17:44 Gram Stain - Final Hip - Left Wound Culture - Final 10/24/21 17:46 Gram Stain - Preliminary Knee - Left Body Fluid Culture - Preliminary 10/26/21 15:23 Blood Culture - Preliminary Blood No Growth after 24 hours 10/25/21 17:44 Anaerobic Culture - Preliminary Leg - Left 10/25/21 17:44 Anaerobic Culture - Preliminary Knee - Left 10/25/21 17:44 Anaerobic Culture - Preliminary Hip - Left 10/25/21 17:44 Anaerobic Culture - Preliminary Ankle - Left 10/24/21 09:58 Blood Culture Gram Stain - Final Blood Blood Culture - Final Staphylococcus aureus 10/25/21 00:22 Blood Culture Gram Stain - Preliminary Blood Blood Culture - Preliminary Presumptive Staph aureus Assessment and Plan Assessment: 1. End-stage renal disease on hemodialysis on a Sunday schedule. IJ permacath has been removed 2. MSSA bacteremia which is persistent. Status post removal of IJ permacath and placement of temporary femoral catheter on 10/23/2021 and subsequent removal on 10/25/2021 3. Hyperkalemia associated with end-stage renal disease, expect improvement with dialysis 4. Hyponatremia associated with end-stage renal disease expect improvement post dialysis 5. Septic arthritis from persistent bacteremia affecting the left hip, knee and ankle Plan: Continue to monitor labs daily Patient may need a temporary catheter again based on his labs Continue antibiotics Follow-up on blood cultures
[2021-10-28 08:54] LABS: HGB 6.9 gm/dL (13.0-17.5)
[2021-10-28 09:04] LABS: Potassium 6.1 mmol/L (3.5-5.1)
[2021-10-28] MEDS ORDERED: INSULIN REGULAR 100 UNIT/ML VIAL (IV) IV ONE (09:17)
[2021-10-28] MEDS ORDERED: DEXTROSE 50% SYRINGE 50 ML IVP STA (09:18)
[2021-10-28] MEDS: SODIUM ZIRCONIUM CYCLOSILICATE 10 GM PACKET PO SCH ×3 (09:43→20:20)
--- NOTE | 2021-10-28 15:17 | P.PN ---
Subjective Progress Note Date: 10/28/21 This patient is a 26- year old male who is status-post I&D left hip, left knee, left ankle for presumed septic arthritis, and irrigation and debridement left calf for hematoma versus abscess on 10/25/21. Today is post-operative day #3. Patient is examined bedside with Dr. Stokes this afternoon. Patient states his pain in the left lower extremity continues to improve. He is doing well today. He is currently being transfused a unit of PRBCs, hemoglobin resulted as 6.9 this morning. Patient's repeat blood cultures drawn on 10/26/21 show no growth at 24 hours. Intra-op culture taken of the left knee and left ankle positive for staph aureus. Objective - Vital Signs Vital signs: Vital Signs Temp 98.8 F 10/28/21 13:17 Pulse 101 H 10/28/21 13:17 Resp 16 10/28/21 13:17 BP 144/76 10/28/21 13:17 Pulse Ox 99 10/28/21 13:17 FiO2 Intake & Output 10/27/21 10/28/21 10/28/21 18:59 06:59 18:59 Intake Total 640 Output Total 602 Balance -602 640 Weight 72.5 kg Intake: IV 240 0.9 240 Intake, IV Titration 200 Amount Nafcillin 2 gm In 200 Dextrose 5% in Water 100 ml @ 100 mls/hr IVPB Q4HR [facility] Rx#:[id number] Oral 200 Blood Product 0 Unit 0 Output: Urine 600 Stool 2 Other: Voiding Method Urinal Urinal Urinal - Exam On examination, patient is sitting up in bed in no apparent distress. He is alert and oriented 3. On inspection of the left lower extremity, there is an SRIRAM wrap in place. Hemovac drains have been removed at the left hip, left knee, and left ankle. SRIRAM wrap is removed and reveals clean, dry, intact dressings in place over the right hip, right knee, right calf, and right ankle. There is minimal pain with palpation of the left hip, thigh, knee, calf, ankle, foot. Patient is able to wiggle toes appropriately. Foot is warm and well perfused. - Labs CBC & Chem 7: 10/28/21 08:10 10/28/21 08:10 Labs: Abnormal Lab Results - Last 24 Hours (Table) 10/25/21 10/28/21 10/28/21 Range/Units 09:20 08:10 08:10 WBC 22.2 H (3.8-10.6) k/uL RBC 2.31 L (4.30-5.90) m/uL Hgb 6.9 L* (13.0-17.5) gm/dL Hct 21.7 L (39.0-53.0) % RDW 19.4 H (11.5-15.5) % Plt Count 621 H (150-450) k/uL Sodium 125 L (137-145) mmol/L Potassium 6.1 H* (3.5-5.1) mmol/L Chloride 87 L (98-107) mmol/L Carbon Dioxide 20 L (22-30) mmol/L BUN 103 H* (9-20) mg/dL Creatinine 11.48 H* (0.66-1.25) mg/dL Magnesium 2.9 H (1.6-2.3) mg/dL Crossmatch See Detail Microbiology - Last 24 Hours (Table) 10/27/21 08:40 Blood Culture - Preliminary Blood No Growth after 24 hours 10/23/21 07:47 Blood Culture Gram Stain - Final Blood Blood Culture - Final Staphylococcus aureus 10/25/21 17:44 Gram Stain - Preliminary Knee - Left Wound Culture - Preliminary Presumptive Staph aureus 10/25/21 17:44 Gram Stain - Preliminary Ankle - Left Tissue Culture - Preliminary Presumptive Staph aureus 10/25/21 17:44 Gram Stain - Preliminary Ankle - Left Wound Culture - Preliminary Presumptive Staph aureus 10/24/21 17:46 Gram Stain - Preliminary Synovial Fluid Body Fluid Culture - Preliminary Staphylococcus aureus 10/25/21 17:44 Gram Stain - Final Leg - Left Wound Culture - Final 10/25/21 17:44 Gram Stain - Preliminary Hip - Left Tissue Culture - Preliminary 10/25/21 17:44 Gram Stain - Final Hip - Left Wound Culture - Final 10/24/21 17:46 Gram Stain - Preliminary Knee - Left Body Fluid Culture - Preliminary 10/26/21 15:23 Blood Culture - Preliminary Blood No Growth after 24 hours 10/25/21 17:44 Anaerobic Culture - Preliminary Leg - Left 10/25/21 17:44 Anaerobic Culture - Preliminary Knee - Left 10/25/21 17:44 Anaerobic Culture - Preliminary Hip - Left 10/25/21 17:44 Anaerobic Culture - Preliminary Ankle - Left 10/24/21 09:58 Blood Culture Gram Stain - Final Blood Blood Culture - Final Staphylococcus aureus 10/25/21 00:22 Blood Culture Gram Stain - Preliminary Blood Blood Culture - Preliminary Presumptive Staph aureus Assessment and Plan Assessment: Status-post I&D left hip, left knee, left ankle for presumed septic arthritis, and irrigation and debridement left calf for hematoma versus abscess on 10/25/21. Post-operative day #3. Plan: - Patient may weight bear as tolerated on left lower extremity with a walker. PT consulted for mobilization. - Keep Opsite surgical dressings in place. Hemovac drains removed bedside today. - Pain management as needed. - Will follow multiple intra-op cultures. Intra-op cultures from left knee and left ankle positive for staph aureus. Antibiotics per infectious disease. - DVT prophylaxis per internal medicine. - We have no further plans for additional surgical intervention at this time. - We will follow patient closely.
[2021-10-28] MEDS: MORPHINE SULFATE 4 MG/ML SYRINGE IVP PRN (20:23)
[2021-10-29] MEDS: NAFCILLIN 2 GM in DEXTROSE 5% IN WATER 100 ML IVPB SCH ×12 (00:02→20:20)
--- NOTE | 2021-10-29 00:23 | P.PN ---
Subjective Progress Note Date: 10/27/21 Principal diagnosis: Bacteremia Patient is a 26 year male with a past medical history significant for end-stage renal disease on hemodialysis presented to hospital with sepsis and bacteremia secondary to dialysis catheter infection which was removed the evening of 10/20/2021. Patient is status post I and D of the left knee and hip and ankle area completed 10/25/2021 On today's evaluation that is 10/27/2021, the patient remains to be afebrile , the patient denies chest pain or shortness of breath or cough , the patient denies abdominal pain and no diarrhea, patient pain to the left knee or ankle area is currently controlled Objective - Vital Signs Vital signs: Vital Signs Temp 99.4 F 10/27/21 03:53 Pulse 112 H 10/27/21 09:25 Resp 16 10/27/21 09:25 BP 161/79 10/27/21 03:53 Pulse Ox 97 10/27/21 03:53 FiO2 Intake & Output 10/26/21 10/27/21 10/27/21 18:59 06:59 18:59 Output Total 0 10 601 Balance 0 -10 -601 Weight 72.5 kg Output: Drainage 10 Left Ankle 0 Left Hip 10 Left Knee 0 Urine 0 600 Stool 1 Other: Voiding Method Urinal Urinal Urinal # Voids 0 - Exam GENERAL DESCRIPTION: Young male lying in bed in no distress RESPIRATORY SYSTEM: Unlabored breathing , decreased breath sounds at bases HEART: S1 S2 regular rate and rhythm , ABDOMEN: Soft , no tenderness EXTREMITIES: No edema feet - Labs CBC & Chem 7: 10/28/21 08:10 10/28/21 08:10 Labs: Abnormal Lab Results - Last 24 Hours (Table) 10/25/21 10/27/21 10/27/21 Range/Units 09:20 08:40 08:40 WBC 16.5 H (3.8-10.6) k/uL RBC 2.38 L (4.30-5.90) m/uL Hgb 6.9 L* (13.0-17.5) gm/dL Hct 22.2 L (39.0-53.0) % RDW 19.4 H (11.5-15.5) % Plt Count 496 H (150-450) k/uL Neutrophils # 14.0 H (1.3-7.7) k/uL Sodium 126 L (137-145) mmol/L Chloride 89 L (98-107) mmol/L BUN 80 H (9-20) mg/dL Creatinine 9.89 H* (0.66-1.25) mg/dL Calcium 8.3 L (8.4-10.2) mg/dL Crossmatch See Detail Microbiology - Last 24 Hours (Table) 10/25/21 17:44 Gram Stain - Preliminary Hip - Left Tissue Culture - Preliminary 10/25/21 17:44 Gram Stain - Preliminary Leg - Left Wound Culture - Preliminary 10/25/21 17:44 Gram Stain - Preliminary Hip - Left Wound Culture - Preliminary 10/24/21 17:46 Gram Stain - Preliminary Synovial Fluid Body Fluid Culture - Preliminary Presumptive Staph aureus 10/24/21 17:46 Gram Stain - Preliminary Knee - Left Body Fluid Culture - Preliminary 10/20/21 16:00 Catheter Tip Culture - Final Catheter Tip Staphylococcus aureus 10/24/21 09:58 Blood Culture Gram Stain - Preliminary Blood Blood Culture - Preliminary Presumptive Staph aureus 10/23/21 07:47 Blood Culture Gram Stain - Preliminary Blood Blood Culture - Preliminary Staphylococcus aureus 10/22/21 12:22 Blood Culture Gram Stain - Final Blood Blood Culture - Final Staphylococcus aureus 10/25/21 00:22 Blood Culture Gram Stain - Preliminary Blood Assessment and Plan (1) Positive blood culture Current Visit: No Status: Acute Code(s): R78.81 - BACTEREMIA SNOMED Code(s): 671414985 Plan: 1patient presented to hospital with sepsis source is likely dialysis catheter infection in this patient who did have a staphylococcal bacteremia which has been finalized as MSSA 2the patient dialysis catheter has been removed and tip has been sent for the culture which came back positive with MSSA. 3patient is status post I&D of the left hip and ankle in the area, cultures are currently pending 4patient did have persistent bacteremia echocardiogram did not show any vegetation 5patient will continue with Naficillin, daily blood cultures to document clearance of bacteremia Time with Patient: Less than 30
--- NOTE | 2021-10-29 00:26 | P.PN ---
Subjective Progress Note Date: 10/28/21 Principal diagnosis: Bacteremia Patient is a 26 year male with a past medical history significant for end-stage renal disease on hemodialysis presented to hospital with sepsis and bacteremia secondary to dialysis catheter infection which was removed the evening of 10/20/2021. Patient is status post I and D of the left knee and hip and ankle area completed 10/25/2021 On today's evaluation that is 10/28/2021, the patient denies any fever or chills , the patient denies chest pain , shortness of breath or cough , the patient denies abdominal pain and no diarrhea, patient denies any worsening pain to the left knee or ankle area and no new symptoms Objective - Vital Signs Vital signs: Vital Signs Temp 99.0 F 10/28/21 13:07 Pulse 104 H 10/28/21 13:07 Resp 16 10/28/21 13:07 BP 156/76 10/28/21 13:07 Pulse Ox 98 10/28/21 13:07 FiO2 Intake & Output 10/27/21 10/28/21 10/28/21 18:59 06:59 18:59 Intake Total 640 Output Total 602 Balance -602 640 Weight 72.5 kg Intake: IV 240 0.9 240 Intake, IV Titration 200 Amount Nafcillin 2 gm In 200 Dextrose 5% in Water 100 ml @ 100 mls/hr IVPB Q4HR [facility] Rx#:[id number] Oral 200 Blood Product 0 Unit 0 Output: Urine 600 Stool 2 Other: Voiding Method Urinal Urinal Urinal - Exam GENERAL DESCRIPTION: Young male lying in bed in no distress RESPIRATORY SYSTEM: Unlabored breathing , decreased breath sounds at bases HEART: S1 S2 regular rate and rhythm , ABDOMEN: Soft , no tenderness EXTREMITIES: No edema feet - Labs CBC & Chem 7: 10/28/21 08:10 10/28/21 08:10 Labs: Abnormal Lab Results - Last 24 Hours (Table) 10/25/21 10/28/21 10/28/21 Range/Units 09:20 08:10 08:10 WBC 22.2 H (3.8-10.6) k/uL RBC 2.31 L (4.30-5.90) m/uL Hgb 6.9 L* (13.0-17.5) gm/dL Hct 21.7 L (39.0-53.0) % RDW 19.4 H (11.5-15.5) % Plt Count 621 H (150-450) k/uL Sodium 125 L (137-145) mmol/L Potassium 6.1 H* (3.5-5.1) mmol/L Chloride 87 L (98-107) mmol/L Carbon Dioxide 20 L (22-30) mmol/L BUN 103 H* (9-20) mg/dL Creatinine 11.48 H* (0.66-1.25) mg/dL Magnesium 2.9 H (1.6-2.3) mg/dL Crossmatch See Detail Microbiology - Last 24 Hours (Table) 10/27/21 08:40 Blood Culture - Preliminary Blood No Growth after 24 hours 10/23/21 07:47 Blood Culture Gram Stain - Final Blood Blood Culture - Final Staphylococcus aureus 10/25/21 17:44 Gram Stain - Preliminary Knee - Left Wound Culture - Preliminary Presumptive Staph aureus 10/25/21 17:44 Gram Stain - Preliminary Ankle - Left Tissue Culture - Preliminary Presumptive Staph aureus 10/25/21 17:44 Gram Stain - Preliminary Ankle - Left Wound Culture - Preliminary Presumptive Staph aureus 10/24/21 17:46 Gram Stain - Preliminary Synovial Fluid Body Fluid Culture - Preliminary Staphylococcus aureus 10/25/21 17:44 Gram Stain - Final Leg - Left Wound Culture - Final 10/25/21 17:44 Gram Stain - Preliminary Hip - Left Tissue Culture - Preliminary 10/25/21 17:44 Gram Stain - Final Hip - Left Wound Culture - Final 10/24/21 17:46 Gram Stain - Preliminary Knee - Left Body Fluid Culture - Preliminary 10/26/21 15:23 Blood Culture - Preliminary Blood No Growth after 24 hours 10/25/21 17:44 Anaerobic Culture - Preliminary Leg - Left 10/25/21 17:44 Anaerobic Culture - Preliminary Knee - Left 10/25/21 17:44 Anaerobic Culture - Preliminary Hip - Left 10/25/21 17:44 Anaerobic Culture - Preliminary Ankle - Left 10/24/21 09:58 Blood Culture Gram Stain - Final Blood Blood Culture - Final Staphylococcus aureus 10/25/21 00:22 Blood Culture Gram Stain - Preliminary Blood Blood Culture - Preliminary Presumptive Staph aureus Assessment and Plan (1) Positive blood culture Current Visit: No Status: Acute Code(s): R78.81 - BACTEREMIA SNOMED Code(s): 635810885 Plan: 1patient presented to hospital with sepsis source is likely dialysis catheter infection in this patient who did have a staphylococcal bacteremia which has been finalized as MSSA 2the patient dialysis catheter has been removed and tip has been sent for the culture which came back positive with MSSA. 3patient is status post I&D of the left hip and ankle in the area, cultures from the knee and ankle positive for MSSA 4patient did have persistent bacteremia echocardiogram did not show any vegetation 5patient blood culture 10/26/21 and 10/27/2021 are so far negative, and if remai ns to be negative and 72 hour patient will be available to get his dialysis catheter. 6- patient will continue with Naficillin, and monitor clinical course closely Time with Patient: Less than 30
--- NOTE | 2021-10-29 05:01 | P.PN ---
Subjective Progress Note Date: 10/28/21 Sepsis with blood cultures positive for gram-positive cocci Acute delirium from sepsis End-stage kidney disease on hemodialysis 26-year-old patient, follows with Dr. Travis moore. Chronic stable medical conditions include end-stage kidney disease on hemodialysis Sunday and Sunday, essential hypertension, secondary hyperparathyroidism. Patient came in because of not feeling well. Unsteady weak diet and rundown. Unsure about fever. Blood drawn at the nephrology dialysis center was positive for gram- positive cocci. IV vancomycin was given. Patient is slightly delirious. Consultation nephrology denies D was done. Appetite fair denies any respiratory or urinary symptoms. Admitted with sepsis with positive blood culture from the dialysis center, delirium. IV vancomycin started. October 20: Tired. Decreased oral intake. Dialysis catheter to be taken out today. Patient received dialysis yesterday. Discussed with patient. Tired. Repeat blood cultures from yesterday growing staph aureus. October 21: Less delirious today. Dialysis catheter has been removed yesterday. Blood cultures from here growing staph aureus. Patient not hungry. Did not eat his breakfast. Tired. Patient complaining of pain around the left hip area. I ordered Doppler ultrasound that came back to be negative. Hip x-ray was also ordered and came back to be unremarkable. Orthopedics consulted. 10/23/2021 Patient is seen and evaluated in room at bedside; patient complains of generalized pain more so in Lasix; no complaint of chest pain or shortness of breath Vital signs are reviewed; blood pressure 169/98, pulse 111 Lab review shows a sodium of 123 which is down from 126 yesterday, potassium 5.9, bicarbonate 18, BUN/creatinine of 142/13.1 Repeat blood cultures drawn yesterday are reported positive; plan was to reinsert permacath if blood cultures were negative; nephrology recommending to proceed with placement of Angel catheter and dialyze the patient today and tomorrow due to worsening hyponatremia with plans to remove catheter after dialysis; patient will have a permacath placement once her cultures turn negative with possibility of paratonia dialysis in the meantime 10/24/2021 Patient is seen in follow-up this morning currently receiving hemodialysis. Multiple medical consultations including nephrology and infectious disease following. Blood cultures and catheter tip culture showing staph aureus and awaiting for bacteremia clearance. Patient will also need replacement dialysis catheter once cleared by infectious disease. Patient is currently maintained on 1500 mL fluid restrictions and will slightly increase as patient reports he is thirsty and not getting enough intake. Patient is currently afebrile and denies any chest pain or palpitations. 10/25/2021 Patient is seen in follow-up this morning and hemoglobin was found to be 6.8 and will transfuse 1 unit of PRBC. Patient is scheduled to undergo incision and drainage with possible debridement of the left hip and left lower extremity with orthopedics today. Patient also to have dialysis catheter removed by vascular surgery. Patient continues on fluid restrictions and is currently nothing by mouth for the procedure and diuretics being held. No plans for hemodialysis today. Patient is maintained on Sunday/Sunday/Sunday schedule and will continue with nephrology following closely. Patient is also maintained on IV antibiotics with infectious disease following closely and will continue. Mariusz brooks culture showing MSSA and hopeful for cultures during surgery today. She is currently afebrile and denies chest pain or shortness of breath. Patient reports left leg pain. 10/26/2021 Patient is seen in follow-up today status post incision and drainage of the left lower extremity and left hip with orthopedics in currently maintained on IV antibiotics in the form of cefazolin with anxiety following closely. Patient being transitioned to nafcillin while awaiting for finalized cultures of the deep tissue cultures that were obtained during surgery. Patient had dialysis catheter removed and waiting prior to insertion of new catheter. 2-D echo was also ordered to assess for any vegetation. Patient continues with fevers and denies any chest pain or shortness of breath. Hemoglobin was 7.1 today after 1 unit of PRBCs yesterday. WBC trending up at 15.4 and BNP is noted with a creat inine of 8.08. Recommend close monitoring of vital signs and temperature control and continue to await for cultures. Patient reports his pain is currently manageable and denies any chest pain or shortness of breath. 10/27/2021 Patient is seen today and continues on IV abx with multiple medical co nsultations following and blood cultures have been positive and awaiting repeat blood cultures for clearance of bacteremia. ID following closely and patient also remains without a dialysis catheter at this time. Patient continues with fevers as well and is status post I&D and debridement with ortho post op day 2. Patient hemoglobin is 6.9 and ordered a unit of prbc. Will hold for now and repeat am labs as patient has also not had dialysis for the last 2 days. Creatinine is 8 and nephrology following closely. Patient is extremely weak and will consult PT/OT. Patient denies chest pain or shortness of breath. 10/28/2021 Patient evaluated today continues to have positive blood cultures and awaiting repeat blood cultures that were drawn yesterday to monitor for clearance of bacteremia. Most recent have been negative for 24 hours and will await for 72 hour clearance prior to dialysis catheter placement. Patient continues with low-grade temps of 99 this morning. Patient also maintained on nafcillin with infectious disease following. Asians potassium critically elevated at 6.1 and hemoglobin remained 6.9. WBC is elevated as well at 22 and sodium is found to be 125 with a creatinine of 11.48. Nephrology following closely and may likely need a dialysis catheter temporary for hemodialysis. Ortho following and surgical drains removed of the left lower extremity. PT consulted. Review of systems: Constitutional: No reports of fatigue, reports of fever, or chills Cardiovascular: No reports of chest pain or palpitations Respiratory: No reports of shortness of breath or cough GI: No reports of nausea, vomiting, or diarrhea : No reports of dysuria or retention Neurovascular: reports of generalized weakness All medications have been reviewed Active Medications Acetaminophen (Acetaminophen Tab 325 Mg Tab) 650 mg PO Q4HR PRN PRN Reason: Fever and/ or Pain Last Admin: 10/27/21 09:37 Dose: 650 mg Hydrocodone Bitart/Acetaminophen (Hydrocodone/Apap 5-325mg 1 Each Tab) 1 each PO Q6HR PRN PRN Reason: Pain Last Admin: 10/27/21 23:33 Dose: 1 each Darbepoetin Luis E (Darbepoetin Luis E 40 Mcg/0.4 Ml Syringe) 40 mcg SQ Q7D [facility] Last Admin: 10/26/21 11:23 Dose: 40 mcg Nafcillin Sodium 2 gm/ (Dextrose/Water) 100 mls @ 100 mls/hr IVPB Q4HR [facility]; Protocol Last Admin: 10/29/21 03:50 Dose: 100 mls/hr Lorazepam (Lorazepam 0.5 Mg Tab) 0.5 mg PO Q6HR PRN PRN Reason: Anxiety Last Admin: 10/24/21 00:02 Dose: 0.5 mg Morphine Sulfate (Morphine Sulfate 4 Mg/Ml Syringe) 4 mg IVP Q4HR PRN PRN Reason: Pain Last Admin: 10/28/21 20:23 Dose: 4 mg Multivitamins (Multivitamins, Thera 1 Each Tab) 1 each PO DAILY [facility] Last Admin: 10/28/21 08:00 Dose: 1 each Naloxone HCl (Naloxone 0.4 Mg/Ml 1 Ml Vial) 0.2 mg IV Q2M PRN PRN Reason: Opioid Reversal Sevelamer Carbonate (Sevelamer 800 Mg Tab) 1,600 mg PO TID-W/MEALS [facility] Last Admin: 10/28/21 17:15 Dose: 1,600 mg Sodium Zirconium Cyclosilicate (Sodium Zirconium Cyclosilicate 10 Gm Packet) 10 gm PO TID [facility] Stop: 10/29/21 09:01 Last Admin: 10/28/21 20:20 Dose: 10 gm Thiamine HCl (Thiamine 100 Mg Tab) 100 mg PO BID-W/[facility] Last Admin: 10/28/21 17:15 Dose: 100 mg Torsemide (Torsemide 20 Mg Tab) 80 mg PO DAILY [facility] Last Admin: 10/28/21 08:00 Dose: 80 mg Physical exam: Gen: This is a 26-year-old male awake, alert and oriented 3, thin built HEENT: Head is atraumatic, normocephalic. Pupils equal, round. Sclerae is anicteric. NECK: Supple. No JVD. No lymphadenopathy. No thyromegaly. LUNGS: Diminished breath sounds bilaterally with some scattered rhonchi and crackles noted. No intercostal retractions. HEART: S1, S2 are muffled ABDOMEN: Soft. Bowel sounds are present. No masses. No tenderness. EXTREMITIES: No pedal edema. No calf tenderness. Left hip and lower extremity surgical dressings dry with drainage tubes removed by ortho today. Left lower extremity elevated on pillows NEUROLOGICAL: Patient is awake, alert and oriented x3. Cranial nerves 2 through 12 are grossly intact. diffusely weak Assessment: Sepsis with positive blood cultures showing gram-positive cocci and growing staph aureus from the dialysis center Status post dialysis catheter removal Status post incision and drainage of the left hip, knee, ankle for fluid collections and effusions with the possibility of septic arthritis cultures have been obtained and showing staph aureus Acute delirium from sepsis, improved End-stage renal disease on hemodialysis Sunday/Sunday/Sunday Anemia of chronic disease Chronic kidney disease Left hip and upper thigh pain possibly musculoskeletal strain, Doppler ultrasound was negative for DVT GI prophylaxis DVT prophylaxis Full code Plan: Patient is currently maintained on hemodialysis and will continue on Sunday/Sunday/Sunday with nephrology following closely. No dialysis today and will continue current regimen. Awaiting cultures to be negative for 72 hours before receiving insertion of new dialysis catheter, may need another temporary dialysis catheter for volume overload, hyponatremia, and anemia Hemoglobin 6.9 and will monitor closely and transfuse as 7 or less, a unit ordered today and will repeat am labs. Patient is currently status post for I&D and/or debridement of the left hip knee and ankle with orthopedics post op day 3. Deep cultures obtained and showing staph aureus and drain tubes of left lower extremity removed today by ortho. Most recent repeat blood cultures have been negative and previous culture showing MSSA and deep tissue cultures have been obtained with I&D and will await finalized cultures Recommend continue with 1400 mL fluid restriction and close monitoring of intake and output Will need to discuss further with infectious disease about discharge planning of continued antibiotic therapy and if requiring IV antibiotic therapy or is to receive with hemodialysis, patient will also require a new dialysis catheter placement vascular surgery is following, awaiting most recent cultures to be negative for 72 hours prior to new dialysis catheter and will continue nafcillin Patient has not been up and moving post surgery and will have PT/OT work with the patient Due to multiple complex medical issues, prognosis is guarded The impression and plan of care has been dictated by Vee Honeycutt, Nurse Practitioner as directed. Dr. Elder MD I have performed a history and examination and MDM of this patient, discussed the same with the dictator, and agree with the dictator's assessment and plan as written ,documented as a scribe. Based on total visit time, I have performed more than 50% of the visit. Objective - Vital Signs Vital signs: Vital Signs Temp 98.6 F 10/28/21 08:04 Pulse 106 H 10/28/21 08:04 Resp 16 10/28/21 08:04 BP 155/79 10/28/21 08:04 Pulse Ox 95 10/28/21 08:04 FiO2 Intake & Output 10/27/21 10/28/21 10/28/21 18:59 06:59 18:59 Output Total 602 Balance -602 Output: Urine 600 Stool 2 Other: Voiding Method Urinal Urinal Urinal - Labs CBC & Chem 7: 10/28/21 08:10 10/28/21 08:10 Labs: Abnormal Lab Results - Last 24 Hours (Table) 10/25/21 10/28/21 10/28/21 Range/Units 09:20 08:10 08:10 WBC 22.2 H (3.8-10.6) k/uL RBC 2.31 L (4.30-5.90) m/uL Hgb 6.9 L* (13.0-17.5) gm/dL Hct 21.7 L (39.0-53.0) % RDW 19.4 H (11.5-15.5) % Plt Count 621 H (150-450) k/uL Sodium 125 L (137-145) mmol/L Potassium 6.1 H* (3.5-5.1) mmol/L Chloride 87 L (98-107) mmol/L Carbon Dioxide 20 L (22-30) mmol/L BUN 103 H* (9-20) mg/dL Creatinine 11.48 H* (0.66-1.25) mg/dL Magnesium 2.9 H (1.6-2.3) mg/dL Crossmatch See Detail Microbiology - Last 24 Hours (Table) 10/23/21 07:47 Blood Culture Gram Stain - Final Blood Blood Culture - Final Staphylococcus aureus 10/25/21 17:44 Gram Stain - Preliminary Knee - Left Wound Culture - Preliminary Presumptive Staph aureus 10/25/21 17:44 Gram Stain - Preliminary Ankle - Left Tissue Culture - Preliminary Presumptive Staph aureus 10/25/21 17:44 Gram Stain - Preliminary Ankle - Left Wound Culture - Preliminary Presumptive Staph aureus 10/24/21 17:46 Gram Stain - Preliminary Synovial Fluid Body Fluid Culture - Preliminary Staphylococcus aureus 10/25/21 17:44 Gram Stain - Final Leg - Left Wound Culture - Final 10/25/21 17:44 Gram Stain - Preliminary Hip - Left Tissue Culture - Preliminary 10/25/21 17:44 Gram Stain - Final Hip - Left Wound Culture - Final 10/24/21 17:46 Gram Stain - Preliminary Knee - Left Body Fluid Culture - Preliminary 10/26/21 15:23 Blood Culture - Preliminary Blood No Growth after 24 hours 10/25/21 17:44 Anaerobic Culture - Preliminary Leg - Left 10/25/21 17:44 Anaerobic Culture - Preliminary Knee - Left 10/25/21 17:44 Anaerobic Culture - Preliminary Hip - Left 10/25/21 17:44 Anaerobic Culture - Preliminary Ankle - Left 10/24/21 09:58 Blood Culture Gram Stain - Final Blood Blood Culture - Final Staphylococcus aureus 10/25/21 00:22 Blood Culture Gram Stain - Preliminary Blood Blood Culture - Preliminary Presumptive Staph aureus
[2021-10-29] MEDS: SEVELAMER 800 MG TAB PO SCH ×3 (05:39→16:09)
[2021-10-29] MEDS: THIAMINE 100 MG TAB PO SCH ×2 (05:39→16:09)
[2021-10-29] MEDS: LORazepam 0.5 MG TAB PO PRN ×2 (06:17→20:20)
[2021-10-29 09:04] LABS: Anisocytosis Slight; HCT 23.8 % (39.0-53.0); HGB 7.7 gm/dL (13.0-17.5); Hypochromasia Moderate; MCH 29.3 pg (25.0-35.0); MCHC 32.2 g/dL (31.0-37.0); MCV 90.8 fL (80.0-100.0); Mean Platelet Volume 7.3; Platelet Count 677 k/uL (150-450); Poikilocytosis Slight; RBC 2.62 m/uL (4.30-5.90); RDW 18.9 % (11.5-15.5); WBC 23.3 k/uL (3.8-10.6)
[2021-10-29 09:15] LABS: Magnesium 3.1 mg/dL (1.6-2.3)
[2021-10-29] MEDS ORDERED: DEXTROSE 50% SYRINGE 50 ML IVP STA (09:28)
[2021-10-29] MEDS ORDERED: INSULIN REGULAR 100 UNIT/ML VIAL (IV) IV ONE (09:28)
--- NOTE | 2021-10-29 09:29 | P.PN ---
Subjective Patient is seen in follow-up for end-stage renal disease. He is maintained on hemodialysis on Sunday schedule. Last dialysis was in 10/25/2021. Potassium was high yesterday and was medically treated. Resting in bed. Denies chest pain or shortness of breath. Vital signs are stable. General: Awake and alert. No acute distress. HEENT: Head exam is unremarkable. LUNGS: Breath sounds decreased. HEART: Rate and Rhythm are regular. ABDOMEN: Soft, no distention. EXTREMITITES: Trace edema. No drainage noted. Objective - Vital Signs Vital signs: Vital Signs Temp 98.4 F 10/29/21 03:59 Pulse 114 H 10/29/21 03:59 Resp 16 10/28/21 19:28 BP 144/75 10/29/21 03:59 Pulse Ox 95 10/29/21 03:59 FiO2 Intake & Output 10/28/21 10/29/21 10/29/21 18:59 06:59 18:59 Intake Total 1150 237 100 Balance 1150 237 100 Weight 72.5 kg Intake: IV 240 0.9 240 Intake, IV Titration 200 Amount Nafcillin 2 gm In 200 Dextrose 5% in Water 100 ml @ 100 mls/hr IVPB Q4HR [facility] Rx#:[id number] Oral 400 237 100 Blood Product 310 Rc As-1 Unit 310 [id number] Other: Voiding Method Urinal Urinal - Labs CBC & Chem 7: 10/29/21 08:09 10/28/21 08:10 Labs: Abnormal Lab Results - Last 24 Hours (Table) 10/25/21 10/29/21 Range/Units 09:20 08:09 WBC 23.3 H (3.8-10.6) k/uL RBC 2.62 L (4.30-5.90) m/uL Hgb 7.7 L (13.0-17.5) gm/dL Hct 23.8 L (39.0-53.0) % RDW 18.9 H (11.5-15.5) % Plt Count 677 H (150-450) k/uL Crossmatch See Detail Microbiology - Last 24 Hours (Table) 10/25/21 17:44 Gram Stain - Preliminary Ankle - Left Tissue Culture - Preliminary Staphylococcus aureus 10/25/21 17:44 Gram Stain - Final Knee - Left Wound Culture - Final Staphylococcus aureus 10/25/21 17:44 Gram Stain - Final Ankle - Left Wound Culture - Final Staphylococcus aureus 10/24/21 17:46 Gram Stain - Preliminary Knee - Left Body Fluid Culture - Preliminary 10/25/21 17:44 Gram Stain - Preliminary Hip - Left Tissue Culture - Preliminary 10/26/21 15:23 Blood Culture - Preliminary Blood No Growth after 48 hours 10/25/21 00:22 Blood Culture Gram Stain - Final Blood Blood Culture - Final Staphylococcus aureus 10/27/21 08:40 Blood Culture - Preliminary Blood No Growth after 24 hours 10/23/21 07:47 Blood Culture Gram Stain - Final Blood Blood Culture - Final Staphylococcus aureus Assessment and Plan Plan: Assessment: 1. End-stage renal disease maintained on hemodialysis on Sunday schedule via permacath. Last hemodialysis 10/27/2021. 2. Hyponatremia secondary to chronic kidney disease. Hypervolemic. 3. Anemia of chronic kidney disease. Iron replete. On Aranesp. Received blood transfusion this admission. 4. Staph aureus bacteremia. Permacath removed 10/20/2021. Had a temporary femoral catheter placed which was removed 10/25/2021. Status post incision and drainage of the left hip and ankle cultures also positive for MSSA. On antibiotics. ID following. 5. Chronic kidney disease mineral bone disease. Phosphorous 5.6. On Renvela. 6. Hyperkalemia secondary to chronic kidney disease. Potassium 6.0 today. Plan: Hemodialysis today and tomorrow. Patient needs dialysis access - will place permacath or temporary femoral catheter per infectious disease recommendation. 10 units IV insulin with an amp of D50 and 10 g lokelma now. Maintain torsemide.
[2021-10-29] MEDS: MULTIVITAMINS, THERA 1 EACH TAB PO SCH (09:46)
[2021-10-29] MEDS: TORSEMIDE 20 MG TAB PO SCH (09:46)
[2021-10-29] MEDS: SODIUM ZIRCONIUM CYCLOSILICATE 10 GM PACKET PO SCH (09:47)
[2021-10-29] MEDS ORDERED: SODIUM ZIRCONIUM CYCLOSILICATE 10 GM PACKET PO ONE (10:00)
--- NOTE | 2021-10-29 10:34 | P.PN ---
Subjective Progress Note Date: 10/29/21 Principal diagnosis: Multiple septic joints, left hip, knee and ankle. Status post surgical debridement left hip, knee, lower leg and ankle. This patient is a 26- year old male who is status-post I&D left hip, left knee, left ankle for presumed septic arthritis, and irrigation and debridement left calf for hematoma versus abscess on 10/25/21. Today is post-operative day #4. Patient is examined bedside. Patient states his pain in the left lower extremity continues to improve. He is doing well today. Patient's repeat blood cultures drawn on 10/26/21 show no growth at 48 hours. Intra-op culture taken of the left knee and left ankle positive for staph aureus. Objective - Vital Signs Vital signs: Vital Signs Temp 98.3 F 10/29/21 09:44 Pulse 103 H 10/29/21 09:44 Resp 16 10/28/21 19:28 BP 160/85 10/29/21 09:44 Pulse Ox 97 10/29/21 09:44 FiO2 Intake & Output 10/28/21 10/29/21 10/29/21 18:59 06:59 18:59 Intake Total 1150 237 440 Balance 1150 237 440 Weight 72.5 kg Intake: IV 240 240 0.9 240 240 Intake, IV Titration 200 100 Amount Nafcillin 2 gm In 200 100 Dextrose 5% in Water 100 ml @ 100 mls/hr IVPB Q4HR [facility] Rx#:[id number] Oral 400 237 100 Blood Product 310 Rc As-1 Unit 310 [id number] Other: Voiding Method Urinal Urinal Urinal - Exam This is a pleasant 26-year-old male in no acute distress. He is alert and oriented 3. Exam of the left lower extremity reveals multiple OpSite dressings in place. No drainage noted. Minimal swelling. No erythema. Full foot and ankle motion without difficulty or pain. Neurovascular status to the lower extremity is intact. - Labs CBC & Chem 7: 10/29/21 08:09 10/29/21 08:09 Labs: Abnormal Lab Results - Last 24 Hours (Table) 10/25/21 10/29/21 10/29/21 Range/Units 09:20 08:09 08:09 WBC 23.3 H (3.8-10.6) k/uL RBC 2.62 L (4.30-5.90) m/uL Hgb 7.7 L (13.0-17.5) gm/dL Hct 23.8 L (39.0-53.0) % RDW 18.9 H (11.5-15.5) % Plt Count 677 H (150-450) k/uL Sodium 123 L (137-145) mmol/L Potassium 6.0 H (3.5-5.1) mmol/L Chloride 84 L (98-107) mmol/L Carbon Dioxide 19 L (22-30) mmol/L BUN 111 H* (9-20) mg/dL Creatinine 13.20 H* (0.66-1.25) mg/dL Calcium 8.0 L (8.4-10.2) mg/dL Magnesium 3.1 H (1.6-2.3) mg/dL Crossmatch See Detail Microbiology - Last 24 Hours (Table) 10/25/21 17:44 Gram Stain - Preliminary Ankle - Left Tissue Culture - Preliminary Staphylococcus aureus 10/25/21 17:44 Gram Stain - Final Knee - Left Wound Culture - Final Staphylococcus aureus 10/25/21 17:44 Gram Stain - Final Ankle - Left Wound Culture - Final Staphylococcus aureus 10/24/21 17:46 Gram Stain - Preliminary Knee - Left Body Fluid Culture - Preliminary 10/25/21 17:44 Gram Stain - Preliminary Hip - Left Tissue Culture - Preliminary 10/26/21 15:23 Blood Culture - Preliminary Blood No Growth after 48 hours 10/25/21 00:22 Blood Culture Gram Stain - Final Blood Blood Culture - Final Staphylococcus aureus 10/27/21 08:40 Blood Culture - Preliminary Blood No Growth after 24 hours 10/23/21 07:47 Blood Culture Gram Stain - Final Blood Blood Culture - Final Staphylococcus aureus Assessment and Plan (1) Septic joint of left knee joint Current Visit: Yes Status: Acute Code(s): M00.9 - PYOGENIC ARTHRITIS, U NSPECIFIED SNOMED Code(s): 413958132 (2) Septic arthritis of multiple joints Current Visit: Yes Status: Acute Code(s): M00.9 - PYOGENIC ARTHRITIS, UNSPECIFIED SNOMED Code(s): 64742164 (3) Fever Current Visit: No Status: Acute Code(s): R50.9 - FEVER, UNSPECIFIED SNOMED Code(s): 184378702 (4) MSSA bacteremia Current Visit: No Status: Acute Code(s): R78.81 - BACTEREMIA; B95.61 - METHICILLIN SUSCEP STAPH INFCT CAUSING DIS CLASSD [id number] SNOMED Code(s): 130653692 Plan: The clinical findings are discussed the patient. He is stable from an orthopedic standpoint. He may be discharged when cleared medically.
[2021-10-29] MEDS ORDERED: HEPARIN SODIUM,PORCINE 30 ML 30 ML ONE (14:08)
[2021-10-29] MEDS ORDERED: MIDAZOLAM 2 MG/2 ML VIAL IV ONE (14:32)
[2021-10-29] MEDS ORDERED: SODIUM CHLORIDE 0.9% 500 ML 500 ML IV ONE (14:32)
[2021-10-29] MEDS ORDERED: LIDOCAINE 1% PF 10 MG/ML (5 ML AMP) SQ ONE (14:35)
[2021-10-29] MEDS ORDERED: fentaNYL (PF) 50 MCG/ML 2 ML AMP ONE (14:50)
[2021-10-29] MEDS: fentaNYL (PF) 50 MCG/ML 2 ML AMP IV ONE ×2 (14:51→14:57)
[2021-10-29] MEDS ORDERED: HEPARIN SODIUM 1,000 UN/ML (10ML VL) IV ONE (14:58)
--- NOTE | 2021-10-29 16:25 | XR ---
EXAMINATION TYPE: XR chest 1V portable DATE OF EXAM: 10/29/2021 COMPARISON: 10/19/2021 HISTORY: Catheter placement TECHNIQUE: Single view FINDINGS: There is right-sided central venous catheter with tip in the right atrium. There is some di ffuse infiltrate in the left lung in the left lower lobe with blunting of left costophrenic angle. Ri ght lung is fairly clear. No heart failure. IMPRESSION: There is increasing left lower lobe pneumonia and pleural fluid compared to old exam. Nor mal heart.
--- NOTE | 2021-10-29 17:28 | OP ---
OPERATIVE REPORT PREOPERATIVE DIAGNOSIS: Acute and chronic failure. POSTOPERATIVE DIAGNOSIS: Acute on chronic renal failure. PROCEDURE: 1. Superior venacavogram. 2. Ultrasound-guided placement of 23 cm dialysis catheter, right jugular approach. Sedation time was 30 minutes. This patient has a history of acute chronic renal failure. Patient had two catheter placements in the past. PROCEDURE DESCRIPTION: The patient was brought to the catheter finisher and inspector. Right side of the neck and chest was prepped and drapes were applied in sterile manner. Ultrasound-guided micropuncture was introduced into the right jugular vein. Micropuncture guidewire was passed. A 4-Kenyan dilator was advanced on top of the guidewire. With hand injection, superior venacavogram was performed. Superior vena cava was patent. After that a tunnel was created. Through the tunnel we brought a 23 cm dialysis catheter. Then we passed a guidewire, which was parked in the inferior vena cava. Dilator was advanced on the top of the guidewire. Then sheath was advanced on the top of the guidewire. Through the sheath, we introduced the dialysis catheter. Tip of the catheter was in superior venacaval and atrial junction. Flushed with heparin and saline and hep-locked, secured with 3-0 nylon. Dressing was applied. Patient tolerated the procedure well. MMODL / IJN: [id number] /
--- NOTE | 2021-10-30 02:26 | P.PN ---
Subjective Progress Note Date: 10/29/21 Sepsis with blood cultures positive for gram-positive cocci Acute delirium from sepsis End-stage kidney disease on hemodialysis 26-year-old patient, follows with Dr. Travis moore. Chronic stable medical conditions include end-stage kidney disease on hemodialysis Sunday and Sunday, essential hypertension, secondary hyperparathyroidism. Patient came in because of not feeling well. Unsteady weak diet and rundown. Unsure about fever. Blood drawn at the nephrology dialysis center was positive for gram- positive cocci. IV vancomycin was given. Patient is slightly delirious. Consultation nephrology denies D was done. Appetite fair denies any respiratory or urinary symptoms. Admitted with sepsis with positive blood culture from the dialysis center, delirium. IV vancomycin started. October 20: Tired. Decreased oral intake. Dialysis catheter to be taken out today. Patient received dialysis yesterday. Discussed with patient. Tired. Repeat blood cultures from yesterday growing staph aureus. October 21: Less delirious today. Dialysis catheter has been removed yesterday. Blood cultures from here growing staph aureus. Patient not hungry. Did not eat his breakfast. Tired. Patient complaining of pain around the left hip area. I ordered Doppler ultrasound that came back to be negative. Hip x-ray was also ordered and came back to be unremarkable. Orthopedics consulted. 10/23/2021 Patient is seen and evaluated in room at bedside; patient complains of generalized pain more so in Lasix; no complaint of chest pain or shortness of breath Vital signs are reviewed; blood pressure 169/98, pulse 111 Lab review shows a sodium of 123 which is down from 126 yesterday, potassium 5.9, bicarbonate 18, BUN/creatinine of 142/13.1 Repeat blood cultures drawn yesterday are reported positive; plan was to reinsert permacath if blood cultures were negative; nephrology recommending to proceed with placement of Angel catheter and dialyze the patient today and tomorrow due to worsening hyponatremia with plans to remove catheter after dialysis; patient will have a permacath placement once her cultures turn negative with possibility of paratonia dialysis in the meantime 10/24/2021 Patient is seen in follow-up this morning currently receiving hemodialysis. Multiple medical consultations including nephrology and infectious disease following. Blood cultures and catheter tip culture showing staph aureus and awaiting for bacteremia clearance. Patient will also need replacement dialysis catheter once cleared by infectious disease. Patient is currently maintained on 1500 mL fluid restrictions and will slightly increase as patient reports he is thirsty and not getting enough intake. Patient is currently afebrile and denies any chest pain or palpitations. 10/25/2021 Patient is seen in follow-up this morning and hemoglobin was found to be 6.8 and will transfuse 1 unit of PRBC. Patient is scheduled to undergo incision and drainage with possible debridement of the left hip and left lower extremity with orthopedics today. Patient also to have dialysis catheter removed by vascular surgery. Patient continues on fluid restrictions and is currently nothing by mouth for the procedure and diuretics being held. No plans for hemodialysis today. Patient is maintained on Sunday/Sunday/Sunday schedule and will continue with nephrology following closely. Patient is also maintained on IV antibiotics with infectious disease following closely and will continue. Mariusz brooks culture showing MSSA and hopeful for cultures during surgery today. She is currently afebrile and denies chest pain or shortness of breath. Patient reports left leg pain. 10/26/2021 Patient is seen in follow-up today status post incision and drainage of the left lower extremity and left hip with orthopedics in currently maintained on IV antibiotics in the form of cefazolin with anxiety following closely. Patient being transitioned to nafcillin while awaiting for finalized cultures of the deep tissue cultures that were obtained during surgery. Patient had dialysis catheter removed and waiting prior to insertion of new catheter. 2-D echo was also ordered to assess for any vegetation. Patient continues with fevers and denies any chest pain or shortness of breath. Hemoglobin was 7.1 today after 1 unit of PRBCs yesterday. WBC trending up at 15.4 and BNP is noted with a creat inine of 8.08. Recommend close monitoring of vital signs and temperature control and continue to await for cultures. Patient reports his pain is currently manageable and denies any chest pain or shortness of breath. 10/27/2021 Patient is seen today and continues on IV abx with multiple medical co nsultations following and blood cultures have been positive and awaiting repeat blood cultures for clearance of bacteremia. ID following closely and patient also remains without a dialysis catheter at this time. Patient continues with fevers as well and is status post I&D and debridement with ortho post op day 2. Patient hemoglobin is 6.9 and ordered a unit of prbc. Will hold for now and repeat am labs as patient has also not had dialysis for the last 2 days. Creatinine is 8 and nephrology following closely. Patient is extremely weak and will consult PT/OT. Patient denies chest pain or shortness of breath. 10/28/2021 Patient evaluated today continues to have positive blood cultures and awaiting repeat blood cultures that were drawn yesterday to monitor for clearance of bacteremia. Most recent have been negative for 24 hours and will await for 72 hour clearance prior to dialysis catheter placement. Patient continues with low-grade temps of 99 this morning. Patient also maintained on nafcillin with infectious disease following. Asians potassium critically elevated at 6.1 and hemoglobin remained 6.9. WBC is elevated as well at 22 and sodium is found to be 125 with a creatinine of 11.48. Nephrology following closely and may likely need a dialysis catheter temporary for hemodialysis. Ortho following and surgical drains removed of the left lower extremity. PT consulted. 10/29/2021 Patient is seen today and afebrile and maintained on IV antibiotics with ID following. Vascular surgery to place right chest wall dialysis catheter as patient needs emergent dialysis as he has continued elevated potassium and creatinine is above 11. Patient continues with weakness and will continue with PT and advance activity as tolerated. Patient received 1 unit of blood with hemoglobin 7.7. No reports of chest pain or shortness of breath. Encouraged oral intake. Review of systems: Constitutional: No reports of fatigue, reports of fever, or chills Cardiovascular: No reports of chest pain or palpitations Respiratory: No reports of shortness of breath or cough GI: No reports of nausea, vomiting, or diarrhea : No reports of dysuria or retention Neurovascular: reports of generalized weakness All medications have been reviewed Active Medications Acetaminophen (Acetaminophen Tab 325 Mg Tab) 650 mg PO Q4HR PRN PRN Reason: Fever and/ or Pain Last Admin: 10/27/21 09:37 Dose: 650 mg Hydrocodone Bitart/Acetaminophen (Hydrocodone/Apap 5-325mg 1 Each Tab) 1 each PO Q6HR PRN PRN Reason: Pain Last Admin: 10/27/21 23:33 Dose: 1 each Darbepoetin Luis E (Darbepoetin Luis E 40 Mcg/0.4 Ml Syringe) 40 mcg SQ Q7D [facility] Last Admin: 10/26/21 11:23 Dose: 40 mcg Nafcillin Sodium 2 gm/ (Dextrose/Water) 100 mls @ 100 mls/hr IVPB Q4HR [facility]; Protocol Last Admin: 10/30/21 00:00 Dose: 100 mls/hr Lorazepam (Lorazepam 0.5 Mg Tab) 0.5 mg PO Q6HR PRN PRN Reason: Anxiety Last Admin: 10/29/21 20:20 Dose: 0.5 mg Morphine Sulfate (Morphine Sulfate 4 Mg/Ml Syringe) 4 mg IVP Q4HR PRN PRN Reason: Pain Last Admin: 10/28/21 20:23 Dose: 4 mg Multivitamins (Multivitamins, Thera 1 Each Tab) 1 each PO DAILY [facility] Last Admin: 10/29/21 09:46 Dose: 1 each Naloxone HCl (Naloxone 0.4 Mg/Ml 1 Ml Vial) 0.2 mg IV Q2M PRN PRN Reason: Opioid Reversal Sevelamer Carbonate (Sevelamer 800 Mg Tab) 1,600 mg PO TID-W/MEALS [facility] Last Admin: 10/29/21 16:09 Dose: Not Given Thiamine HCl (Thiamine 100 Mg Tab) 100 mg PO BID-W/MEALS [facility] Last Admin: 10/29/21 16:09 Dose: Not Given Torsemide (Torsemide 20 Mg Tab) 80 mg PO DAILY [facility] Last Admin: 10/29/21 09:46 Dose: 80 mg Physical exam: Gen: This is a 26-year-old male awake, alert and oriented 3, thin built HEENT: Head is atraumatic, normocephalic. Pupils equal, round. Sclerae is anicteric. NECK: Supple. No JVD. No lymphadenopathy. No thyromegaly. LUNGS: Diminished breath sounds bilaterally with some scattered rhonchi and crackles noted. No intercostal retractions. HEART: S1, S2 are muffled ABDOMEN: Soft. Bowel sounds are present. No masses. No tenderness. EXTREMITIES: No pedal edema. No calf tenderness. Left hip and lower extremity surgical dressings dry. Left lower extremity elevated on pillows NEUROLOGICAL: Patient is awake, alert and oriented x3. Cranial nerves 2 through 12 are grossly intact. diffusely weak Assessment: Sepsis with positive blood cultures showing gram-positive cocci and growing staph aureus from the dialysis center Status post dialysis catheter removal and placement of right chest wall catheter on 10/29/21 Status post incision and drainage of the left hip, knee, ankle for fluid collections and effusions with the possibility of septic arthritis cultures have been obtained and showing staph aureus Acute delirium from sepsis, improved End-stage renal disease on hemodialysis Sunday/Sunday/Sunday Anemia of chronic disease Chronic kidney disease Left hip and upper thigh pain possibly musculoskeletal strain, Doppler ultras ound was negative for DVT GI prophylaxis DVT prophylaxis Full code Plan: Patient is currently not receiving dialysis as the catheter was removed and will have right chest wall catheter placed with vascular surgery today. maintained on hemodialysis and will continue on Sunday/Sunday/Sunday with nephrology following closely. No dialysis today and will continue current regimen. Hemoglobin 7.7 and will monitor closely and transfuse as 7 or less, will repeat am labs. Patient is currently status post for I&D and/or debridement of the left hip knee and ankle with orthopedics post op day 4. Deep cultures obtained and showing staph aureus and drain tubes of left lower extremity removed by ortho. Most recent repeat blood cultures have been negative and previous culture showing MSSA Recommend continue with 1400 mL fluid restriction and close monitoring of intake and output Will need to discuss further with infectious disease about discharge planning of continued antibiotic therapy and if requiring IV antibiotic therapy or is to receive with hemodialysis, patient received a new dialysis catheter placement today with vascular surgery following, most recent cultures are negative for 72 hours and will continue nafcillin Patient has not been up and moving post surgery and will have PT/OT work with the patient Due to multiple complex medical issues, prognosis is guarded The impression and plan of care has been dictated by Vee Honeycutt, Nurse Practitioner as directed. Dr. Elder MD I have performed a history and examination and MDM of this patient, discussed the same with the dictator, and agree with the dictator's assessment and plan as written ,documented as a scribe. Based on total visit time, I have performed more than 50% of the visit. Objective - Vital Signs Vital signs: Vital Signs Temp 98.3 F 10/29/21 09:44 Pulse 103 H 10/29/21 09:44 Resp 16 10/28/21 19:28 BP 160/85 10/29/21 09:44 Pulse Ox 97 10/29/21 09:44 FiO2 Intake & Output 10/28/21 10/29/21 10/29/21 18:59 06:59 18:59 Intake Total 1150 237 440 Balance 1150 237 440 Weight 72.5 kg Intake: IV 240 240 0.9 240 240 Intake, IV Titration 200 100 Amount Nafcillin 2 gm In 200 100 Dextrose 5% in Water 100 ml @ 100 mls/hr IVPB Q4HR [facility] Rx#:[id number] Oral 400 237 100 Blood Product 310 Rc As-1 Unit 310 [id number] Other: Voiding Method Urinal Urinal Urinal - Labs CBC & Chem 7: 10/29/21 08:09 10/29/21 20:23 Labs: Abnormal Lab Results - Last 24 Hours (Table) 10/25/21 10/29/21 10/29/21 Range/Units 09:20 08:09 08:09 WBC 23.3 H (3.8-10.6) k/uL RBC 2.62 L (4.30-5.90) m/uL Hgb 7.7 L (13.0-17.5) gm/dL Hct 23.8 L (39.0-53.0) % RDW 18.9 H (11.5-15.5) % Plt Count 677 H (150-450) k/uL Sodium 123 L (137-145) mmol/L Potassium 6.0 H (3.5-5.1) mmol/L Chloride 84 L (98-107) mmol/L Carbon Dioxide 19 L (22-30) mmol/L BUN 111 H* (9-20) mg/dL Creatinine 13.20 H* (0.66-1.25) mg/dL Calcium 8.0 L (8.4-10.2) mg/dL Magnesium 3.1 H (1.6-2.3) mg/dL Crossmatch See Detail Microbiology - Last 24 Hours (Table) 10/25/21 17:44 Gram Stain - Preliminary Ankle - Left Tissue Culture - Preliminary Staphylococcus aureus 10/25/21 17:44 Gram Stain - Final Knee - Left Wound Culture - Final Staphylococcus aureus 10/25/21 17:44 Gram Stain - Final Ankle - Left Wound Culture - Final Staphylococcus aureus 10/24/21 17:46 Gram Stain - Preliminary Knee - Left Body Fluid Culture - Preliminary 10/25/21 17:44 Gram Stain - Preliminary Hip - Left Tissue Culture - Preliminary 10/26/21 15:23 Blood Culture - Preliminary Blood No Growth after 48 hours 10/25/21 00:22 Blood Culture Gram Stain - Final Blood Blood Culture - Final Staphylococcus aureus 10/27/21 08:40 Blood Culture - Preliminary Blood No Growth after 24 hours 10/23/21 07:47 Blood Culture Gram Stain - Final Blood Blood Culture - Final Staphylococcus aureus
[2021-10-30] MEDS: NAFCILLIN 2 GM in DEXTROSE 5% IN WATER 100 ML IVPB SCH ×14 (03:54→23:06)
[2021-10-30] MEDS: SEVELAMER 800 MG TAB PO SCH ×3 (06:25→17:52)
[2021-10-30] MEDS: THIAMINE 100 MG TAB PO SCH ×2 (06:25→17:52)
[2021-10-30] MEDS: MULTIVITAMINS, THERA 1 EACH TAB PO SCH (09:06)
[2021-10-30] MEDS: TORSEMIDE 20 MG TAB PO SCH (09:06)
[2021-10-30 09:14] LABS: Anisocytosis Slight; HCT 22.7 % (39.0-53.0); HGB 7.1 gm/dL (13.0-17.5); Hypochromasia Moderate; MCH 28.9 pg (25.0-35.0); MCHC 31.2 g/dL (31.0-37.0); MCV 92.7 fL (80.0-100.0); Mean Platelet Volume 7.1; Platelet Count 774 k/uL (150-450); RBC 2.45 m/uL (4.30-5.90); RDW 18.9 % (11.5-15.5); WBC 19.8 k/uL (3.8-10.6)
--- NOTE | 2021-10-30 09:22 | P.PN ---
Subjective Patient is seen in follow-up for end-stage renal disease. He is maintained on hemodialysis on Sunday schedule. A permacath placed 10/29/2021. Last dialysis 10/29/2021. Resting in bed. Denies chest pain or shortness of breath. Vital signs are stable. General: Awake and alert. No acute distress. HEENT: Head exam is unremarkable. LUNGS: Breath sounds decreased. HEART: Rate and Rhythm are regular. ABDOMEN: Soft, no distention. EXTREMITITES: Trace edema. No drainage noted. Objective - Vital Signs Vital signs: Vital Signs Temp 98.5 F 10/30/21 04:02 Pulse 115 H 10/30/21 04:02 Resp 18 10/29/21 19:04 BP 166/77 10/30/21 04:02 Pulse Ox 97 10/30/21 07:41 FiO2 Intake & Output 10/29/21 10/30/21 10/30/21 18:59 06:59 18:59 Intake Total 860 Output Total 4000 Balance 860 -4000 Intake: IV 440 0.9 240 Intake, IV Titration 200 Amount Nafcillin 2 gm In 200 Dextrose 5% in Water 100 ml @ 100 mls/hr IVPB Q4HR [facility] Rx#:[id number] Oral 220 Output: Hemodialysis 4000 Other: Voiding Method Urinal Urinal - Labs CBC & Chem 7: 10/30/21 07:59 10/29/21 20:23 Labs: Abnormal Lab Results - Last 24 Hours (Table) 10/29/21 10/30/21 Range/Units 08:09 07:59 WBC 19.8 H (3.8-10.6) k/uL RBC 2.45 L (4.30-5.90) m/uL Hgb 7.1 L (13.0-17.5) gm/dL Hct 22.7 L (39.0-53.0) % RDW 18.9 H (11.5-15.5) % Plt Count 774 H (150-450) k/uL Sodium 123 L (137-145) mmol/L Potassium 6.0 H (3.5-5.1) mmol/L Chloride 84 L (98-107) mmol/L Carbon Dioxide 19 L (22-30) mmol/L BUN 111 H* (9-20) mg/dL Creatinine 13.20 H* (0.66-1.25) mg/dL Calcium 8.0 L (8.4-10.2) mg/dL Magnesium 3.1 H (1.6-2.3) mg/dL Microbiology - Last 24 Hours (Table) 10/25/21 17:44 Anaerobic Culture - Final Hip - Left 10/25/21 17:44 Anaerobic Culture - Final Ankle - Left 10/25/21 17:44 Anaerobic Culture - Final Knee - Left 10/25/21 17:44 Anaerobic Culture - Final Leg - Left 10/25/21 17:44 Gram Stain - Preliminary Hip - Left Tissue Culture - Preliminary 10/25/21 17:44 Gram Stain - Final Ankle - Left Tissue Culture - Final Staphylococcus aureus 10/26/21 15:23 Blood Culture - Preliminary Blood No Growth after 72 hours 10/27/21 08:40 Blood Culture - Preliminary Blood No Growth after 48 hours Assessment and Plan Plan: Assessment: 1. End-stage renal disease maintained on hemodialysis on Sunday schedule via permacath. Last hemodialysis 10/27/2021. 2. Hyponatremia secondary to chronic kidney disease. Hypervolemic. Expect improvement postdialysis. 3. Anemia of chronic kidney disease. Iron replete. On Aranesp. Received blood transfusion this admission. 4. Staph aureus bacteremia. Permacath removed 10/20/2021. Had a temporary femoral catheter placed which was removed 10/25/2021. Status post incision and drainage of the left hip and ankle cultures also positive for MSSA. On antibiotics. ID following. Permacath placed a 10/29/2021. 5. Chronic kidney disease mineral bone disease. Phosphorous 5.6. On Renvela. 6. Hyperkalemia secondary to chronic kidney disease. Improved postdialysis. Plan: Hemodialysis again today. Maintain torsemide. Monitor hemoglobin. Transfuse if less than 7.
[2021-10-30 09:31] LABS: Calcium 8.1 mg/dL (8.4-10.2); Magnesium 2.8 mg/dL (1.6-2.3); Potassium 5.4 mmol/L (3.5-5.1)
--- NOTE | 2021-10-30 09:31 | P.PN ---
Subjective Progress Note Date: 10/30/21 Principal diagnosis: Multiple septic joints, left hip, knee and ankle. Status post surgical debridement left hip, knee, lower leg and ankle. This patient is a 26- year old male who is status-post I&D left hip, left knee, left ankle for presumed septic arthritis, and irrigation and debridement left calf for hematoma versus abscess on 10/25/21. Today is post-operative day #5. Patient is examined bedside. Patient states his pain in the left lower extremity continues to improve. He is doing well today. Patient's repeat blood cultures drawn on 10/26/21 show no growth at 72 hours. Intra-op culture taken of the left knee and left ankle positive for staph aureus. Objective - Vital Signs Vital signs: Vital Signs Temp 98.5 F 10/30/21 04:02 Pulse 115 H 10/30/21 04:02 Resp 18 10/29/21 19:04 BP 166/77 10/30/21 04:02 Pulse Ox 97 10/30/21 07:41 FiO2 Intake & Output 10/29/21 10/30/21 10/30/21 18:59 06:59 18:59 Intake Total 860 Output Total 4000 Balance 860 -4000 Intake: IV 440 0.9 240 Intake, IV Titration 200 Amount Nafcillin 2 gm In 200 Dextrose 5% in Water 100 ml @ 100 mls/hr IVPB Q4HR [facility] Rx#:[id number] Oral 220 Output: Hemodialysis 4000 Other: Voiding Method Urinal Urinal - Exam This is a pleasant 26-year-old male in no acute distress. He is alert and oriented 3. Exam of the left lower extremity reveals multiple OpSite dressings in place. No drainage noted. Minimal swelling. No erythema. Full foot and ankle motion without difficulty or pain. Neurovascular status to the lower extremity is intact. - Labs CBC & Chem 7: 10/30/21 07:59 10/29/21 20:23 Labs: Abnormal Lab Results - Last 24 Hours (Table) 10/30/21 Range/Units 07:59 WBC 19.8 H (3.8-10.6) k/uL RBC 2.45 L (4.30-5.90) m/uL Hgb 7.1 L (13.0-17.5) gm/dL Hct 22.7 L (39.0-53.0) % RDW 18.9 H (11.5-15.5) % Plt Count 774 H (150-450) k/uL Microbiology - Last 24 Hours (Table) 10/25/21 17:44 Anaerobic Culture - Final Hip - Left 10/25/21 17:44 Anaerobic Culture - Final Ankle - Left 10/25/21 17:44 Anaerobic Culture - Final Knee - Left 10/25/21 17:44 Anaerobic Culture - Final Leg - Left 10/25/21 17:44 Gram Stain - Preliminary Hip - Left Tissue Culture - Preliminary 10/25/21 17:44 Gram Stain - Final Ankle - Left Tissue Culture - Final Staphylococcus aureus 10/26/21 15:23 Blood Culture - Preliminary Blood No Growth after 72 hours 10/27/21 08:40 Blood Culture - Preliminary Blood No Growth after 48 hours Assessment and Plan (1) Septic joint of left knee joint Current Visit: Yes Status: Acute Code(s): M00.9 - PYOGENIC ARTHRITIS, UNSPECIFIED SNOMED Code(s): 653695098 (2) Septic arthritis of multiple joints Current Visit: Yes Status: Acute Code(s): M00.9 - PYOGENIC ARTHRITIS, UNSPECIFIED SNOMED Code(s): 83162848 (3) Fever Current Visit: No Status: Acute Code(s): R50.9 - FEVER, UNSPECIFIED SNOMED Code(s): 103876782 (4) MSSA bacteremia Current Visit: No Status: Acute Code(s): R78.81 - BACTEREMIA; B95.61 - METHICILLIN SUSCEP STAPH INFCT CAUSING DIS CLASSD [id number] SNOMED Code(s): 147754597 Plan: The clinical findings are discussed the patient. He is stable from an orthopedic standpoint. He may be discharged when cleared medically.
[2021-10-30] MEDS: MORPHINE SULFATE 4 MG/ML SYRINGE IVP PRN ×2 (12:01→20:41)
--- NOTE | 2021-10-30 14:21 | P.PN ---
Progress Note - Text Progress Note Date: 10/30/21 Chief Complaint: Not feeling well This is a 26-year-old patient, follows with Dr. Travis moore. Chronic stable medical conditions include end-stage kidney disease on hemodialysis Sunday and Sunday, essential hypertension, secondary hyperparathyroidism. Patient came in because of not feeling well. Unsteady weak diet and rundown. Unsure about fever. Blood drawn at the nephrology dialysis center was positive for gram-positive cocci. IV vancomycin was given. Patient is slightly delirious. Consultation nephrology denies D was done. Appetite fair denies any respiratory or urinary symptoms. Admitted with sepsis with positive blood culture from the dialysis center, delirium. IV vancomycin started. October 20: Tired. Decreased oral intake. Dialysis catheter to be taken out today. Patient received dialysis yesterday. Discussed with patient. Tired. Repeat blood cultures from yesterday growing staph aureus. October 21: Less delirious today. Dialysis catheter has been removed yesterday. Blood cultures from here growing staph aureus. Patient not hungry. Did not eat his breakfast. Tired. Patient complaining of pain around the left hip area. I ordered Doppler ultrasound that came back to be negative. Hip x-ray was also ordered and came back to be unremarkable. Orthopedics consulted. 10/23/2021 Patient is seen and evaluated in room at bedside; patient complains of generalized pain more so in Lasix; no complaint of chest pain or shortness of breath Vital signs are reviewed; blood pressure 169/98, pulse 111 Lab review shows a sodium of 123 which is down from 126 yesterday, potassium 5.9, bicarbonate 18, BUN/creatinine of 142/13.1 Repeat blood cultures drawn yesterday are reported positive; plan was to reinsert permacath if blood cultures were negative; nephrology recommending to proceed with placement of Angel catheter and dialyze the patient today and tomorrow due to worsening hyponatremia with plans to remove catheter after dialysis; patient will have a permacath placement once her cultures turn negative with possibility of paratonia dialysis in the meantime 10/24/2021 Patient is seen in follow-up this morning currently receiving hemodialysis. Multiple medical consultations including nephrology and infectious disease following. Blood cultures and catheter tip culture showing staph aureus and awaiting for bacteremia clearance. Patient will also need replacement dialysis catheter once cleared by infectious disease. Patient is currently maintained on 1500 mL fluid restrictions and will slightly increase as patient reports he is thirsty and not getting enough intake. Patient is currently afebrile and denies any chest pain or palpitations. 10/25/2021 Patient is seen in follow-up this morning and hemoglobin was found to be 6.8 and will transfuse 1 unit of PRBC. Patient is scheduled to undergo incision and drainage with possible debridement of the left hip and left lower extremity with orthopedics today. Patient also to have dialysis catheter removed by vascular surgery. Patient continues on fluid restrictions and is currently nothing by mouth for the procedure and diuretics being held. No plans for hemodialysis today. Patient is maintained on Sunday/Sunday/Sunday schedule and will gabby nue with nephrology following closely. Patient is also maintained on IV antibiotics with infectious disease following closely and will continue. Multiple culture showing MSSA and hopeful for cultures during surgery today. She is currently afebrile and denies chest pain or shortness of breath. Patient reports left leg pain. 10/26/2021 Patient is seen in follow-up today status post incision and drainage of the left lower extremity and left hip with orthopedics in currently maintained on IV antibiotics in the form of cefazolin with anxiety following closely. Patient being transitioned to nafcillin while awaiting for finalized cultures of the deep tissue cultures that were obtained during surgery. Patient had dialysis catheter removed and waiting prior to insertion of new catheter. 2-D echo was also ordered to assess for any vegetation. Patient continues with fevers and denies any chest pain or shortness of breath. Hemoglobin was 7.1 today after 1 unit of PRBCs yesterday. WBC trending up at 15.4 and BNP is noted with a creatinine of 8.08. Recommend close monitoring of vital signs and temperature control and continue to await for cultures. Patient reports his pain is curre ntly manageable and denies any chest pain or shortness of breath. 10/27/2021 Patient is seen today and continues on IV abx with multiple medical consultations following and blood cultures have been positive and awaiting repeat blood cultures for clearance of bacteremia. ID following closely and patient also remains without a dialysis catheter at this time. Patient continues with fevers as well and is status post I&D and debridement with ortho post op day 2. Patient hemoglobin is 6.9 and ordered a unit of prbc. Will hold for now and repeat am labs as patient has also not had dialysis for the last 2 days. Creatinine is 8 and nephrology following closely. Patient is extremely weak and will consult PT/OT. Patient denies chest pain or shortness of breath. 10/28/2021 Patient evaluated today continues to have positive blood cultures and awaiting repeat blood cultures that were drawn yesterday to monitor for clearance of bacteremia. Most recent have been negative for 24 hours and will await for 72 hour clearance prior to dialysis catheter placement. Patient continues with low-grade temps of 99 this morning. Patient also maintained on nafcillin with infectious disease following. Asians potassium critically elevated at 6.1 and hemoglobin remained 6.9. WBC is elevated as well at 22 and sodium is found to be 125 with a creatinine of 11.48. Nephrology following closely and may likely need a dialysis catheter temporary for hemodialysis. Ortho following and surgical drains removed of the left lower extremity. PT consulted. 10/29/2021 Patient is seen today and afebrile and maintained on IV antibiotics with ID following. Vascular surgery to place right chest wall dialysis catheter as patient needs emergent dialysis as he has continued elevated potassium and creatinine is above 11. Patient continues with weakness and will continue with PT and advance activity as tolerated. Patient received 1 unit of blood with hemoglobin 7.7. No reports of chest pain or shortness of breath. Encouraged oral intake. Patient was seen and covered by [facility] hospitalist from October 22 through October 29 10/30/2021: Patient getting hemodialysis today. Decreased appetite. On IV nafcillin. No pain. Laying in bed. Patient in the last few days however I&D of septic arthritis including left hip left knee and left ankle. All cultures growing MSSA. Active Medications Acetaminophen (Acetaminophen Tab 325 Mg Tab) 650 mg PO Q4HR PRN PRN Reason: Fever and/ or Pain Last Admin: 10/27/21 09:37 Dose: 650 mg Hydrocodone Bitart/Acetaminophen (Hydrocodone/Apap 5-325mg 1 Each Tab) 1 each PO Q6HR PRN PRN Reason: Pain Last Admin: 10/27/21 23:33 Dose: 1 each Darbepoetin Luis E (Darbepoetin Luis E 40 Mcg/0.4 Ml Syringe) 40 mcg SQ Q7D [facility] Last Admin: 10/26/21 11:23 Dose: 40 mcg Nafcillin Sodium 2 gm/ (Dextrose/Water) 100 mls @ 100 mls/hr IVPB Q4HR [facility]; Protocol Last Admin: 10/30/21 13:34 Dose: Not Given Lorazepam (Lorazepam 0.5 Mg Tab) 0.5 mg PO Q6HR PRN PRN Reason: Anxiety Last Admin: 10/29/21 20:20 Dose: 0.5 mg Morphine Sulfate (Morphine Sulfate 4 Mg/Ml Syringe) 4 mg IVP Q4HR PRN PRN Reason: Pain Last Admin: 10/30/21 12:01 Dose: 4 mg Multivitamins (Multivitamins, Thera 1 Each Tab) 1 each PO DAILY [facility] Last Admin: 10/30/21 09:06 Dose: 1 each Naloxone HCl (Naloxone 0.4 Mg/Ml 1 Ml Vial) 0.2 mg IV Q2M PRN PRN Reason: Opioid Reversal Sevelamer Carbonate (Sevelamer 800 Mg Tab) 1,600 mg PO TID-W/MEALS [facility] Last Admin: 10/30/21 13:32 Dose: Not Given Thiamine HCl (Thiamine 100 Mg Tab) 100 mg PO BID-W/MEALS [facility] Last Admin: 10/30/21 06:25 Dose: 100 mg Torsemide (Torsemide 20 Mg Tab) 80 mg PO DAILY [facility] Last Admin: 10/30/21 09:06 Dose: 80 mg Past medical history to include: End-stage kidney disease on hemodialysis, anemia of CK D, minimal bone disease Social history: Lives with his mother. Smokes about 5 bowls of marijuana daily. No alcohol or cigarette smoking. Family history: Diabetes, COPD, A. fib, CHF Physical examination: VITAL SIGNS: 98.7, 104, 16, 1 55 x 61, 98% room air GENERAL: laying in bed tired. Right jugular dialysis catheter. EYES: Pupils equal. Conjunctiva normal. HEENT: External appearance of nose and ears normal, oral cavity grossly normal. NECK: JVD not raised; masses not palpable. HEART: First and second heart sounds are normal; no edema. LUNGS: Respiratory rate normal; clear to auscultation. ABDOMEN: Soft, nontender, liver spleen not palpable, no masses palpable. PSYCH: Answering questions appropriately MUSCULOSKELETAL:No Clubbing/cyanosis;muscles-grossly intact INVESTIGATIONS, reviewed in the clinical context: October 30: White count 19.8 hemoglobin 7.1 platelet 774 sodium 126 potassium 5.4 creatinine 9.96 October 21: Sodium 127 potassium 5.4 twice a day 2 creatinine 9.1 Urine drug screen: Positive for opiates, benzodiazepine, marijuana White count 12.4 hemoglobin 9 platelets 170 sodium 126 potassium 5.3 rate 80 creatinine 10.9 phosphorus 5.6 and magnesium 2.8 bilirubin 1.8 EKG tracing personally reviewed by me-sinus tachycardia rate of 1:30. Right bundle branch block pattern. Nonspecific ST segment changes. Assessment and plan: -Sepsis with blood cultures positive for MSSA. done at the dialysis center and from October 19. IV nafcillin Dialysis catheter removed October 20 -Polyarticular septic arthritis including the left hip, left knee, left ankle with I&D if all the joints. -Acute delirium from sepsis: improvement Treat underlying infection -End-stage kidney disease on hemodialysis Sunday and Sunday On dialysis schedule -Anemia of chronic kidney disease Follow H&H -mineral bone disease/CK D Supplements -Hyperphosphatemia secondary to CK D Renvela -Hypervolemic hyponatremia: Slow to respond Encourage oral intake. Fluid to be taken off at dialysis. IV nafcillin. Dialysis catheter placed yesterday. Discussed with patient..
[2021-10-30] MEDS: HYDROcodone/APAP 5-325MG 1 EACH TAB PO PRN (20:32)
[2021-10-31] MEDS: MORPHINE SULFATE 4 MG/ML SYRINGE IVP PRN ×2 (00:37→22:04)
--- NOTE | 2021-10-31 01:29 | P.PN ---
Subjective Progress Note Date: 10/29/21 Principal diagnosis: Bacteremia Patient is a 26 year male with a past medical history significant for end-stage renal disease on hemodialysis presented to hospital with sepsis and bacteremia secondary to dialysis catheter infection which was removed the evening of 10/20/2021. Patient is status post I and D of the left knee and hip and ankle area completed 10/25/2021 On today's evaluation that is 10/29/2021, the patient remains to be afebrile , the patient denies chest pain , shortness of breath or cough , the patient denies abdominal pain and no diarrhea, patient pain to the left knee or ankle area is currently controlled Objective - Vital Signs Vital signs: Vital Signs Temp 98.4 F 10/29/21 11:27 Pulse 109 H 10/29/21 11:27 Resp 16 10/29/21 11:27 BP 149/91 10/29/21 11:27 Pulse Ox 97 10/29/21 11:27 FiO2 Intake & Output 10/28/21 10/29/21 10/29/21 18:59 06:59 18:59 Intake Total 1150 237 640 Balance 1150 237 640 Weight 72.5 kg Intake: IV 240 440 0.9 240 240 Intake, IV Titration 200 100 Amount Nafcillin 2 gm In 200 100 Dextrose 5% in Water 100 ml @ 100 mls/hr IVPB Q4HR [facility] Rx#:[id number] Oral 400 237 100 Blood Product 310 Rc As-1 Unit 310 [id number] Other: Voiding Method Urinal Urinal Urinal - Exam GENERAL DESCRIPTION: Young male lying in bed in no distress RESPIRATORY SYSTEM: Unlabored breathing , decreased breath sounds at bases HEART: S1 S2 regular rate and rhythm , ABDOMEN: Soft , no tenderness EXTREMITIES: No edema feet - Labs CBC & Chem 7: 10/30/21 07:59 10/30/21 07:59 Labs: Abnormal Lab Results - Last 24 Hours (Table) 10/25/21 10/29/21 10/29/21 Range/Units 09:20 08:09 08:09 WBC 23.3 H (3.8-10.6) k/uL RBC 2.62 L (4.30-5.90) m/uL Hgb 7.7 L (13.0-17.5) gm/dL Hct 23.8 L (39.0-53.0) % RDW 18.9 H (11.5-15.5) % Plt Count 677 H (150-450) k/uL Sodium 123 L (137-145) mmol/L Potassium 6.0 H (3.5-5.1) mmol/L Chloride 84 L (98-107) mmol/L Carbon Dioxide 19 L (22-30) mmol/L BUN 111 H* (9-20) mg/dL Creatinine 13.20 H* (0.66-1.25) mg/dL Calcium 8.0 L (8.4-10.2) mg/dL Magnesium 3.1 H (1.6-2.3) mg/dL Crossmatch See Detail Microbiology - Last 24 Hours (Table) 10/27/21 08:40 Blood Culture - Preliminary Blood No Growth after 48 hours 10/25/21 17:44 Gram Stain - Preliminary Ankle - Left Tissue Culture - Preliminary Staphylococcus aureus 10/25/21 17:44 Gram Stain - Final Knee - Left Wound Culture - Final Staphylococcus aureus 10/25/21 17:44 Gram Stain - Final Ankle - Left Wound Culture - Final Staphylococcus aureus 10/24/21 17:46 Gram Stain - Preliminary Knee - Left Body Fluid Culture - Preliminary 10/25/21 17:44 Gram Stain - Preliminary Hip - Left Tissue Culture - Preliminary 10/26/21 15:23 Blood Culture - Preliminary Blood No Growth after 48 hours 10/25/21 00:22 Blood Culture Gram Stain - Final Blood Blood Culture - Final Staphylococcus aureus Assessment and Plan (1) Positive blood culture Current Visit: No Status: Acute Code(s): R78.81 - BACTEREMIA SNOMED Code(s): 234762507 Plan: 1patient presented to hospital with sepsis source is likely dialysis catheter infection in this patient who did have a staphylococcal bacteremia which has be en finalized as MSSA 2the patient dialysis catheter has been removed and tip has been sent for the culture which came back positive with MSSA. 3patient is status post I&D of the left hip and ankle in the area, cultures from the knee and ankle positive for MSSA 4patient did have persistent bacteremia echocardiogram did not show any vegetation 5patient blood culture 10/26/21 and 10/27/2021 are so far negative and patient was cleared to get his dialysis catheter which was placed on 10/29/2021 6- patient will continue with Naficillin, and continue supportive care Time with Patient: Less than 30
--- NOTE | 2021-10-31 01:30 | P.PN ---
Subjective Progress Note Date: 10/30/21 Principal diagnosis: Bacteremia Patient is a 26 year male with a past medical history significant for end-stage renal disease on hemodialysis presented to hospital with sepsis and bacteremia secondary to dialysis catheter infection which was removed the evening of 10/20/2021. Patient is status post I and D of the left knee and hip and ankle area completed 10/25/2021 On today's evaluation that is 10/30/2021, the patient denies any fever and chills , the patient denies chest pain shortness of breath or cough , the patient denies abdominal pain and no diarrhea, patient denies any worsening pain to the left knee or ankle area Objective - Vital Signs Vital signs: Vital Signs Temp 98.3 F 10/30/21 17:56 Pulse 122 H 10/30/21 17:56 Resp 16 10/30/21 17:56 BP 126/55 10/30/21 17:56 Pulse Ox 94 L 10/30/21 17:56 FiO2 Intake & Output 10/30/21 10/30/21 10/31/21 06:59 18:59 06:59 Intake Total 440 Output Total 4000 4001 Balance -4000 -3561 Intake: IV 240 0.9 240 Intake, IV Titration 200 Amount Nafcillin 2 gm In 200 Dextrose 5% in Water 100 ml @ 100 mls/hr IVPB Q4HR [facility] Rx#:[id number] Output: Stool 1 Hemodialysis 4000 4000 Other: Voiding Method Urinal Urinal - Exam GENERAL DESCRIPTION: Young male lying in bed in no distress RESPIRATORY SYSTEM: Unlabored breathing , decreased breath sounds at bases HEART: S1 S2 regular rate and rhythm , ABDOMEN: Soft , no tenderness EXTREMITIES: No edema feet - Labs CBC & Chem 7: 10/30/21 07:59 10/30/21 07:59 Labs: Abnormal Lab Results - Last 24 Hours (Table) 10/30/21 10/30/21 Range/Units 07:59 07:59 WBC 19.8 H (3.8-10.6) k/uL RBC 2.45 L (4.30-5.90) m/uL Hgb 7.1 L (13.0-17.5) gm/dL Hct 22.7 L (39.0-53.0) % RDW 18.9 H (11.5-15.5) % Plt Count 774 H (150-450) k/uL Sodium 126 L (137-145) mmol/L Potassium 5.4 H (3.5-5.1) mmol/L Chloride 89 L (98-107) mmol/L Carbon Dioxide 21 L (22-30) mmol/L BUN 71 H (9-20) mg/dL Creatinine 9.96 H* (0.66-1.25) mg/dL Calcium 8.1 L (8.4-10.2) mg/dL Magnesium 2.8 H (1.6-2.3) mg/dL Microbiology - Last 24 Hours (Table) 10/26/21 15:23 Blood Culture - Preliminary Blood No Growth after 96 hours 10/27/21 08:40 Blood Culture - Preliminary Blood No Growth after 72 hours 10/25/21 17:44 Anaerobic Culture - Final Hip - Left 10/25/21 17:44 Anaerobic Culture - Final Ankle - Left 10/25/21 17:44 Anaerobic Culture - Final Knee - Left 10/25/21 17:44 Anaerobic Culture - Final Leg - Left 10/25/21 17:44 Gram Stain - Preliminary Hip - Left Tissue Culture - Preliminary Assessment and Plan (1) Positive blood culture Current Visit: No Status: Acute Code(s): R78.81 - BACTEREMIA SNOMED Code(s): 273919869 Plan: 1patient presented to hospital with sepsis source is likely dialysis catheter infection in this patient who did have a staphylococcal bacteremia which has been finalized as MSSA 2the patient dialysis catheter has been removed and tip has been sent for the culture which came back positive with MSSA. 3patient is status post I&D of the left hip and ankle in the area, cultures from the knee and ankle positive for MSSA 4patient did have persistent bacteremia echocardiogram did not show any vegetation 5patient blood culture 10/26/21 and 10/27/2021 are so far negative and patient was cleared to get his dialysis catheter which was placed on 10/29/2021 6- patient will continue with Naficillin, and plan is to switch him over to cefazolin with the dialysis so we can avoid PICC line placement Time with Patient: Less than 30
[2021-10-31] MEDS: NAFCILLIN 2 GM in DEXTROSE 5% IN WATER 100 ML IVPB SCH ×12 (04:49→23:18)
[2021-10-31] MEDS: LORazepam 0.5 MG TAB PO PRN ×2 (05:41→22:04)
[2021-10-31] MEDS: SEVELAMER 800 MG TAB PO SCH ×3 (05:42→17:05)
[2021-10-31] MEDS: THIAMINE 100 MG TAB PO SCH ×2 (05:42→17:05)
[2021-10-31] MEDS: TORSEMIDE 20 MG TAB PO SCH (08:11)
[2021-10-31] MEDS: MULTIVITAMINS, THERA 1 EACH TAB PO SCH (08:12)
[2021-10-31 08:53] LABS: Anisocytosis Slight; HCT 22.2 % (39.0-53.0); Hypochromasia Marked; MCH 28.7 pg (25.0-35.0); MCV 92.6 fL (80.0-100.0); Platelet Count 821 k/uL (150-450); RDW 18.3 % (11.5-15.5)
[2021-10-31 08:55] LABS: Calcium 8.5 mg/dL (8.4-10.2); Potassium 4.5 mmol/L (3.5-5.1)
--- NOTE | 2021-10-31 09:01 | P.PN ---
Subjective Patient is seen in follow-up for end-stage renal disease. He is maintained on hemodialysis on Sunday schedule. Permacath placed 10/29/2021. Resting in bed. Denies chest pain or shortness of breath. Branch a little lightheaded yesterday when went to the bathroom but better today. Blood pressure stable. Vital signs are stable. General: Awake and alert. No acute distress. HEENT: Head exam is unremarkable. LUNGS: Breath sounds decreased. HEART: Rate and Rhythm are regular. ABDOMEN: Soft, no distention. EXTREMITITES: Trace edema. No drainage noted. Objective - Vital Signs Vital signs: Vital Signs Temp 98.4 F 10/31/21 08:17 Pulse 110 H 10/31/21 08:17 Resp 19 10/31/21 08:17 BP 140/83 10/31/21 08:17 Pulse Ox 98 10/31/21 08:17 FiO2 Intake & Output 10/30/21 10/31/21 10/31/21 18:59 06:59 18:59 Intake Total 440 500 Output Total 4001 2 Balance -3561 498 Intake: IV 240 60 0.9 240 60 Intake, IV Titration 200 200 Amount Nafcillin 2 gm In 200 200 Dextrose 5% in Water 100 ml @ 100 mls/hr IVPB Q4HR [facility] Rx#:[id number] Oral 240 Output: Stool 1 2 Hemodialysis 4000 Other: Voiding Method Urinal Urinal Urinal # Voids 2 - Labs CBC & Chem 7: 10/30/21 07:59 10/30/21 07:59 Labs: Abnormal Lab Results - Last 24 Hours (Table) 10/30/21 10/30/21 Range/Units 07:59 07:59 WBC 19.8 H (3.8-10.6) k/uL RBC 2.45 L (4.30-5.90) m/uL Hgb 7.1 L (13.0-17.5) gm/dL Hct 22.7 L (39.0-53.0) % RDW 18.9 H (11.5-15.5) % Plt Count 774 H (150-450) k/uL Sodium 126 L (137-145) mmol/L Potassium 5.4 H (3.5-5.1) mmol/L Chloride 89 L (98-107) mmol/L Carbon Dioxide 21 L (22-30) mmol/L BUN 71 H (9-20) mg/dL Creatinine 9.96 H* (0.66-1.25) mg/dL Calcium 8.1 L (8.4-10.2) mg/dL Magnesium 2.8 H (1.6-2.3) mg/dL Microbiology - Last 24 Hours (Table) 10/26/21 15:23 Blood Culture - Preliminary Blood No Growth after 96 hours 10/27/21 08:40 Blood Culture - Preliminary Blood No Growth after 72 hours Assessment and Plan Plan: Assessment: 1. End-stage renal disease maintained on hemodialysis on Sunday schedule via permacath. 2. Hyponatremia secondary to chronic kidney disease. Hypervolemic. Expect improvement postdialysis. Better. 3. Anemia of chronic kidney disease. Iron replete. On Aranesp. Received blood transfusion this admission. 4. Staph aureus bacteremia. Permacath removed 10/20/2021. Had a temporary femoral catheter placed which was removed 10/25/2021. Status post incision and drainage of the left hip and ankle cultures also positive for MSSA. On an tibiotics. ID following. Permacath placed a 10/29/2021. 5. Chronic kidney disease mineral bone disease. Phosphorous 5.6. On Renvela. 6. Hyperkalemia secondary to chronic kidney disease. Improved postdialysis. Plan: Hemodialysis again today and then on Sunday. Maintain torsemide. Monitor hemoglobin. Transfuse if less than 7. Add low-dose beta keisha as patient has been tachycardic. Defer further management to primary team.
[2021-10-31 09:05] LABS: HGB 6.9 gm/dL (13.0-17.5)
--- NOTE | 2021-10-31 10:50 | P.PN ---
Subjective Progress Note Date: 10/31/21 Principal diagnosis: Multiple septic joints, left hip, knee and ankle. Status post surgical debridement left hip, knee, lower leg and ankle. This patient is a 26- year old male who is status-post I&D left hip, left knee, left ankle for presumed septic arthritis, and irrigation and debridement left calf for hematoma versus abscess on 10/25/21. Today is post-operative day #6. Patient is examined bedside. Patient states his pain in the left lower extremity continues to improve. He is doing well today. Patient's repeat blood cultures drawn on 10/26/21 show no growth at 72 hours. Intra-op culture taken of the left knee and left ankle positive for staph aureus. Hemoglobin is 6.9 today. Objective - Vital Signs Vital signs: Vital Signs Temp 98.4 F 10/31/21 08:17 Pulse 110 H 10/31/21 08:17 Resp 19 10/31/21 08:17 BP 140/83 10/31/21 08:17 Pulse Ox 98 10/31/21 08:17 FiO2 Intake & Output 10/30/21 10/31/21 10/31/21 18:59 06:59 18:59 Intake Total 440 500 Output Total 4001 2 Balance -3561 498 Intake: IV 240 60 0.9 240 60 Intake, IV Titration 200 200 Amount Nafcillin 2 gm In 200 200 Dextrose 5% in Water 100 ml @ 100 mls/hr IVPB Q4HR [facility] Rx#:[id number] Oral 240 Output: Stool 1 2 Hemodialysis 4000 Other: Voiding Method Urinal Urinal Urinal # Voids 2 - Exam This is a pleasant 26-year-old male in no acute distress. He is alert and oriented 3. Exam of the left lower extremity reveals multiple OpSite dressings in place. No drainage noted. Minimal swelling. No erythema. Full foot and ankle motion without difficulty or pain. Neurovascular status to the lower extremity is intact. - Labs CBC & Chem 7: 10/31/21 08:18 10/31/21 08:18 Labs: Abnormal Lab Results - Last 24 Hours (Table) 10/31/21 10/31/21 Range/Units 08:18 08:18 WBC 19.0 H (3.8-10.6) k/uL RBC 2.40 L (4.30-5.90) m/uL Hgb 6.9 L* (13.0-17.5) gm/dL Hct 22.2 L (39.0-53.0) % RDW 18.3 H (11.5-15.5) % Plt Count 821 H (150-450) k/uL Sodium 128 L (137-145) mmol/L Chloride 90 L (98-107) mmol/L BUN 50 H (9-20) mg/dL Creatinine 8.15 H* (0.66-1.25) mg/dL Microbiology - Last 24 Hours (Table) 10/26/21 15:23 Blood Culture - Preliminary Blood No Growth after 96 hours 10/27/21 08:40 Blood Culture - Preliminary Blood No Growth after 72 hours Assessment and Plan (1) Septic joint of left knee joint Current Visit: Yes Status: Acute Code(s): M00.9 - PYOGENIC ARTHRITIS, UNSPECIFIED SNOMED Code(s): 698339900 (2) Septic arthritis of multiple joints Current Visit: Yes Status: Acute Code(s): M00.9 - PYOGENIC ARTHRITIS, UNSPECIFIED SNOMED Code(s): 53855283 (3) Fever Current Visit: No Status: Acute Code(s): R50.9 - FEVER, UNSPECIFIED SNOMED Code(s): 344007352 (4) MSSA bacteremia Current Visit: No Status: Acute Code(s): R78.81 - BACTEREMIA; B95.61 - METHICILLIN SUSCEP STAPH INFCT CAUSING DIS CLASSD [id number] SNOMED Code(s): 056321283 Plan: The clinical findings are discussed the patient. He is stable from an orthopedic standpoint. He may be discharged when cleared medically.
[2021-10-31] MEDS: METOPROLOL TARTRATE 12.5 MG TAB PO SCH ×2 (13:01→19:43)
--- NOTE | 2021-10-31 15:40 | P.PN ---
Progress Note - Text Progress Note Date: 10/31/21 Chief Complaint: Not feeling well This is a 26-year-old patient, follows with Dr. Travis moore. Chronic stable medical conditions include end-stage kidney disease on hemodialysis Sunday and Sunday, essential hypertension, secondary hyperparathyroidism. Patient came in because of not feeling well. Unsteady weak diet and rundown. Unsure about fever. Blood drawn at the nephrology dialysis center was positive for gram-positive cocci. IV vancomycin was given. Patient is slightly delirious. Consultation nephrology denies D was done. Appetite fair denies any respiratory or urinary symptoms. Admitted with sepsis with positive blood culture from the dialysis center, delirium. IV vancomycin started. October 20: Tired. Decreased oral intake. Dialysis catheter to be taken out today. Patient received dialysis yesterday. Discussed with patient. Tired. Repeat blood cultures from yesterday growing staph aureus. October 21: Less delirious today. Dialysis catheter has been removed yesterday. Blood cultures from here growing staph aureus. Patient not hungry. Did not eat his breakfast. Tired. Patient complaining of pain around the left hip area. I ordered Doppler ultrasound that came back to be negative. Hip x-ray was also ordered and came back to be unremarkable. Orthopedics consulted. 10/23/2021 Patient is seen and evaluated in room at bedside; patient complains of generalized pain more so in Lasix; no complaint of chest pain or shortness of breath Vital signs are reviewed; blood pressure 169/98, pulse 111 Lab review shows a sodium of 123 which is down from 126 yesterday, potassium 5.9, bicarbonate 18, BUN/creatinine of 142/13.1 Repeat blood cultures drawn yesterday are reported positive; plan was to reinsert permacath if blood cultures were negative; nephrology recommending to proceed with placement of Angel catheter and dialyze the patient today and tomorrow due to worsening hyponatremia with plans to remove catheter after dialysis; patient will have a permacath placement once her cultures turn negative with possibility of paratonia dialysis in the meantime 10/24/2021 Patient is seen in follow-up this morning currently receiving hemodialysis. Multiple medical consultations including nephrology and infectious disease following. Blood cultures and catheter tip culture showing staph aureus and awaiting for bacteremia clearance. Patient will also need replacement dialysis catheter once cleared by infectious disease. Patient is currently maintained on 1500 mL fluid restrictions and will slightly increase as patient reports he is thirsty and not getting enough intake. Patient is currently afebrile and denies any chest pain or palpitations. 10/25/2021 Patient is seen in follow-up this morning and hemoglobin was found to be 6.8 and will transfuse 1 unit of PRBC. Patient is scheduled to undergo incision and drainage with possible debridement of the left hip and left lower extremity with orthopedics today. Patient also to have dialysis catheter removed by vascular surgery. Patient continues on fluid restrictions and is currently nothing by mouth for the procedure and diuretics being held. No plans for hemodialysis today. Patient is maintained on Sunday/Sunday/Sunday schedule and will gabby nue with nephrology following closely. Patient is also maintained on IV antibiotics with infectious disease following closely and will continue. Multiple culture showing MSSA and hopeful for cultures during surgery today. She is currently afebrile and denies chest pain or shortness of breath. Patient reports left leg pain. 10/26/2021 Patient is seen in follow-up today status post incision and drainage of the left lower extremity and left hip with orthopedics in currently maintained on IV antibiotics in the form of cefazolin with anxiety following closely. Patient being transitioned to nafcillin while awaiting for finalized cultures of the deep tissue cultures that were obtained during surgery. Patient had dialysis catheter removed and waiting prior to insertion of new catheter. 2-D echo was also ordered to assess for any vegetation. Patient continues with fevers and denies any chest pain or shortness of breath. Hemoglobin was 7.1 today after 1 unit of PRBCs yesterday. WBC trending up at 15.4 and BNP is noted with a creatinine of 8.08. Recommend close monitoring of vital signs and temperature control and continue to await for cultures. Patient reports his pain is curre ntly manageable and denies any chest pain or shortness of breath. 10/27/2021 Patient is seen today and continues on IV abx with multiple medical consultations following and blood cultures have been positive and awaiting repeat blood cultures for clearance of bacteremia. ID following closely and patient also remains without a dialysis catheter at this time. Patient continues with fevers as well and is status post I&D and debridement with ortho post op day 2. Patient hemoglobin is 6.9 and ordered a unit of prbc. Will hold for now and repeat am labs as patient has also not had dialysis for the last 2 days. Creatinine is 8 and nephrology following closely. Patient is extremely weak and will consult PT/OT. Patient denies chest pain or shortness of breath. 10/28/2021 Patient evaluated today continues to have positive blood cultures and awaiting repeat blood cultures that were drawn yesterday to monitor for clearance of bacteremia. Most recent have been negative for 24 hours and will await for 72 hour clearance prior to dialysis catheter placement. Patient continues with low-grade temps of 99 this morning. Patient also maintained on nafcillin with infectious disease following. Asians potassium critically elevated at 6.1 and hemoglobin remained 6.9. WBC is elevated as well at 22 and sodium is found to be 125 with a creatinine of 11.48. Nephrology following closely and may likely need a dialysis catheter temporary for hemodialysis. Ortho following and surgical drains removed of the left lower extremity. PT consulted. 10/29/2021 Patient is seen today and afebrile and maintained on IV antibiotics with ID following. Vascular surgery to place right chest wall dialysis catheter as patient needs emergent dialysis as he has continued elevated potassium and creatinine is above 11. Patient continues with weakness and will continue with PT and advance activity as tolerated. Patient received 1 unit of blood with hemoglobin 7.7. No reports of chest pain or shortness of breath. Encouraged oral intake. Patient was seen and covered by [facility] hospitalist from October 22 through October 29 10/30/2021: Patient getting hemodialysis today. Decreased appetite. On IV nafcillin. No pain. Laying in bed. Patient in the last few days however I&D of septic arthritis including left hip left knee and left ankle. All cultures growing MSSA. 10/31/2021: Two-level good breakfast. Not hungry for lunch. On IV nafcillin. And wish to be out of bed. Patient to be changed over to Ancef at dialysis upon discharge. Hemoglobin 6.9. 1 unit of PRBC ordered. Active Medications Acetaminophen (Acetaminophen Tab 325 Mg Tab) 650 mg PO Q4HR PRN PRN Reason: Fever and/ or Pain Last Admin: 10/27/21 09:37 Dose: 650 mg Hydrocodone Bitart/Acetaminophen (Hydrocodone/Apap 5-325mg 1 Each Tab) 1 each PO Q6HR PRN PRN Reason: Pain Last Admin: 10/30/21 20:32 Dose: 1 each Darbepoetin Luis E (Darbepoetin Luis E 40 Mcg/0.4 Ml Syringe) 40 mcg SQ Q7D [facility] Last Admin: 10/26/21 11:23 Dose: 40 mcg Nafcillin Sodium 2 gm/ (Dextrose/Water) 100 mls @ 100 mls/hr IVPB Q4HR [facility]; Protocol Last Admin: 10/31/21 13:01 Dose: 100 mls/hr Lorazepam (Lorazepam 0.5 Mg Tab) 0.5 mg PO Q6HR PRN PRN Reason: Anxiety Last Admin: 10/31/21 05:41 Dose: 0.5 mg Metoprolol Tartrate (Metoprolol Tartrate 12.5 Mg Tab) 12.5 mg PO BID [facility] Last Admin: 10/31/21 13:01 Dose: 12.5 mg Morphine Sulfate (Morphine Sulfate 4 Mg/Ml Syringe) 4 mg IVP Q4HR PRN PRN Reason: Pain Last Admin: 10/31/21 00:37 Dose: 4 mg Multivitamins (Multivitamins, Thera 1 Each Tab) 1 each PO DAILY [facility] Last Admin: 10/31/21 08:12 Dose: 1 each Naloxone HCl (Naloxone 0.4 Mg/Ml 1 Ml Vial) 0.2 mg IV Q2M PRN PRN Reason: Opioid Reversal Sevelamer Carbonate (Sevelamer 800 Mg Tab) 1,600 mg PO TID-W/MEALS [facility] Last Admin: 10/31/21 13:01 Dose: 1,600 mg Thiamine HCl (Thiamine 100 Mg Tab) 100 mg PO BID-W/MEALS [facility] Last Admin: 10/31/21 05:42 Dose: Not Given Torsemide (Torsemide 20 Mg Tab) 80 mg PO DAILY [facility] Last Admin: 10/31/21 08:11 Dose: 80 mg Past medical history to include: End-stage kidney disease on hemodialysis, anemia of CK D, minimal bone disease Social history: Lives with his mother. Smokes about 5 bowls of marijuana daily. No alcohol or cigarette smoking. Family history: Diabetes, COPD, A. fib, CHF Physical examination: VITAL SIGNS: 98.6, 115, 17, 140 with 74, 98% GENERAL: laying in bed tired. Right jugular dialysis catheter. EYES: Pupils equal. Conjunctiva normal. HEENT: External appearance of nose and ears normal, oral cavity grossly normal. NECK: JVD not raised; masses not palpable. HEART: First and second heart sounds are normal; no edema. LUNGS: Respiratory rate normal; clear to auscultation. ABDOMEN: Soft, nontender, liver spleen not palpable, no masses palpable. PSYCH: Answering questions appropriately MUSCULOSKELETAL:No Clubbing/cyanosis;muscles-grossly intact INVESTIGATIONS, reviewed in the clinical context: October 31: WBC 19 hemoglobin 6.9 potassium 4.5 creatinine 8.15 October 30: White count 19.8 hemoglobin 7.1 platelet 774 sodium 126 potassium 5.4 creatinine 9.96 October 21: Sodium 127 potassium 5.4 twice a day 2 creatinine 9.1 Urine drug screen: Positive for opiates, benzodiazepine, marijuana White count 12.4 hemoglobin 9 platelets 170 sodium 126 potassium 5.3 rate 80 creatinine 10.9 phosphorus 5.6 and magnesium 2.8 bilirubin 1.8 EKG tracing personally reviewed by me-sinus tachycardia rate of 1:30. Right bundle branch block pattern. Nonspecific ST segment changes. Assessment and plan: -Sepsis with blood cultures positive for MSSA. done at the dialysis center and from October 19. IV nafcillin Dialysis catheter removed October 20 -Polyarticular septic arthritis including the left hip, left knee, left ankle with I&D if all the joints. -Acute delirium from sepsis: improvement Treat underlying infection -End-stage kidney disease on hemodialysis Sunday and Sunday On dialysis schedule -Anemia of chronic kidney disease, with acute exacerbation Follow H&H. Patient received 3 units blood. -mineral bone disease/CK D Supplements -Hyperphosphatemia secondary to CK D Renvela -Hypervolemic hyponatremia: Slow to respond Encourage oral intake. Fluid to be taken off at dialysis. IV nafcillin. Patient ordered 1 unit of blood today. DC antibiotic and follow- up answer being coordinated. Discussed with patient.
[2021-10-31] MEDS: HYDROcodone/APAP 5-325MG 1 EACH TAB PO PRN (19:43)
[2021-10-31] MEDS: ACETAMINOPHEN TAB 325 MG TAB PO PRN (19:43)
[2021-11-01] MEDS: NAFCILLIN 2 GM in DEXTROSE 5% IN WATER 100 ML IVPB SCH ×12 (02:56→23:31)
[2021-11-01] MEDS: MORPHINE SULFATE 4 MG/ML SYRINGE IVP PRN ×3 (02:56→20:59)
[2021-11-01] MEDS: LORazepam 0.5 MG TAB PO PRN ×3 (05:07→23:32)
[2021-11-01] MEDS: HYDROcodone/APAP 5-325MG 1 EACH TAB PO PRN ×2 (05:07→23:32)
[2021-11-01] MEDS: THIAMINE 100 MG TAB PO SCH ×2 (06:50→16:25)
[2021-11-01] MEDS: SEVELAMER 800 MG TAB PO SCH ×3 (06:50→16:25)
--- NOTE | 2021-11-01 08:06 | IR ---
EXAMINATION TYPE: IR cvc insert central tunneled DATE OF EXAM: 10/29/2021 COMPARISON: NONE HISTORY: Dialysis catheter placement Fluoroscopy support supplied to the referring clinician. See dictated report from vascular surgery, 345 intraoperative images document the procedure, 2.6 minutes fluoroscopy time supplied
[2021-11-01] MEDS: METOPROLOL TARTRATE 12.5 MG TAB PO SCH ×2 (09:14→21:00)
[2021-11-01] MEDS: MULTIVITAMINS, THERA 1 EACH TAB PO SCH (09:14)
[2021-11-01] MEDS: TORSEMIDE 20 MG TAB PO SCH (09:15)
--- NOTE | 2021-11-01 09:56 | P.PN ---
Subjective Patient is seen in follow-up for end-stage renal disease. He is maintained on hemodialysis on Sunday schedule. Permacath placed 10/29/2021. Resting in bed. Denies chest pain or shortness of breath. No further lightheadedness. No active complaints today. Vital signs are stable. General: Awake and alert. No acute distress. HEENT: Head exam is unremarkable. LUNGS: Breath sounds decreased. HEART: Rate and Rhythm are regular. ABDOMEN: Soft, no distention. EXTREMITITES: Trace edema. No drainage noted. Objective - Vital Signs Vital signs: Vital Signs Temp 98.9 F 11/01/21 03:50 Pulse 128 H 11/01/21 09:19 Resp 18 11/01/21 03:50 BP 127/60 11/01/21 09:19 Pulse Ox 96 11/01/21 09:19 FiO2 Intake & Output 10/31/21 11/01/21 11/01/21 18:59 06:59 18:59 Intake Total 1868 440 Output Total 1999 2 Balance -132 438 Intake: Intake, IV Titration 200 Amount Nafcillin 2 gm In 200 Dextrose 5% in Water 100 ml @ 100 mls/hr IVPB Q4HR [facility] Rx#:[id number] Oral 1558 240 Blood Product 310 Rc As-1 Unit 310 [id number] Output: Stool 2 Hemodialysis 1999 Other: Voiding Method Urinal Urinal # Voids 0 - Labs CBC & Chem 7: 10/31/21 08:18 10/31/21 08:18 Labs: Abnormal Lab Results - Last 24 Hours (Table) 10/31/21 Range/Units 09:27 Crossmatch See Detail Microbiology - Last 24 Hours (Table) 10/24/21 17:46 Gram Stain - Final Synovial Fluid Body Fluid Culture - Final Staphylococcus aureus 10/24/21 17:46 Gram Stain - Preliminary Knee - Left Body Fluid Culture - Preliminary 10/26/21 15:23 Blood Culture - Preliminary Blood No Growth after 120 hours 10/27/21 08:40 Blood Culture - Preliminary Blood No Growth after 96 hours Assessment and Plan Plan: Assessment: 1. End-stage renal disease maintained on hemodialysis on Sunday schedule via permacath. 2. Hyponatremia secondary to chronic kidney disease. Hypervolemic. Expect improvement postdialysis. Better. 3. Anemia of chronic kidney disease. Iron replete. On Aranesp. Received blood transfusion this admission. 4. Staph aureus bacteremia. Permacath removed 10/20/2021. Had a temporary femoral catheter placed which was removed 10/25/2021. Status post incision and drainage of the left hip and ankle cultures also positive for MSSA. On antibi otics. ID following. Permacath placed a 10/29/2021. 5. Chronic kidney disease mineral bone disease. Phosphorous 5.6. On Renvela. 6. Hyperkalemia secondary to chronic kidney disease. Improved postdialysis. Plan: Hemodialysis tomorrow. Maintain torsemide. Added low-dose beta keisha as patient has been tachycardic. Consult cardiology.
--- NOTE | 2021-11-01 12:54 | P.PN ---
Subjective Progress Note Date: 10/31/21 Principal diagnosis: Bacteremia Patient is a 26 year male with a past medical history significant for end-stage renal disease on hemodialysis presented to hospital with sepsis and bacteremia secondary to dialysis catheter infection which was removed the evening of 10/20/2021. Patient is status post I and D of the left knee and hip and ankle area completed 10/25/2021, patient is status post new permacatheter placement on 10/29/2021 as a blood culture from 10/26/2021 were negative On today's evaluation that is 10/31/2021, the patient is afebrile , the patient denies chest pain shortness of breath or cough , the patient denies abdominal pain and no diarrhea, patient pain to the left knee or ankle area is currently controlled Objective - Vital Signs Vital signs: Vital Signs Temp 98.6 F 10/31/21 13:04 Pulse 115 H 10/31/21 13:04 Resp 17 10/31/21 13:04 BP 151/77 10/31/21 13:51 Pulse Ox 98 10/31/21 13:04 FiO2 Intake & Output 10/30/21 10/31/21 10/31/21 18:59 06:59 18:59 Intake Total 440 500 310 Output Total 4001 2 1999 Balance -7077 958 -5976 Intake: IV 240 60 0.9 240 60 Intake, IV Titration 200 200 Amount Nafcillin 2 gm In 200 200 Dextrose 5% in Water 100 ml @ 100 mls/hr IVPB Q4HR [facility] Rx#:[id number] Oral 240 Blood Product 310 Rc As-1 Unit 310 [id number] Output: Stool 1 2 Hemodialysis 4000 2000 Other: Voiding Method Urinal Urinal Urinal # Voids 2 - Exam GENERAL DESCRIPTION: Young male lying in bed in no distress RESPIRATORY SYSTEM: Unlabored breathing , decreased breath sounds at bases HEART: S1 S2 regular rate and rhythm , ABDOMEN: Soft , no tenderness EXTREMITIES: No edema feet - Labs CBC & Chem 7: 10/31/21 08:18 10/31/21 08:18 Labs: Abnormal Lab Results - Last 24 Hours (Table) 10/31/21 10/31/21 10/31/21 Range/Units 08:18 08:18 09:27 WBC 19.0 H (3.8-10.6) k/uL RBC 2.40 L (4.30-5.90) m/uL Hgb 6.9 L* (13.0-17.5) gm/dL Hct 22.2 L (39.0-53.0) % RDW 18.3 H (11.5-15.5) % Plt Count 821 H (150-450) k/uL Sodium 128 L (137-145) mmol/L Chloride 90 L (98-107) mmol/L BUN 50 H (9-20) mg/dL Creatinine 8.15 H* (0.66-1.25) mg/dL Crossmatch See Detail Microbiology - Last 24 Hours (Table) 10/27/21 08:40 Blood Culture - Preliminary Blood No Growth after 96 hours 10/26/21 15:23 Blood Culture - Preliminary Blood No Growth after 96 hours Assessment and Plan (1) Positive blood culture Current Visit: No Status: Acute Code(s): R78.81 - BACTEREMIA SNOMED Code(s): 862248986 Plan: 1patient presented to hospital with sepsis source is likely dialysis catheter infection in this patient who did have a staphylococcal bacteremia which has been finalized as MSSA 2the patient dialysis catheter has been removed and tip has been sent for the culture which came back positive with MSSA. 3patient is status post I&D of the left hip and ankle in the area, cultures from the knee and ankle positive for MSSA 4patient did have persistent bacteremia echocardiogram did not show any vegetation 5patient blood culture 10/26/21 and 10/27/2021 are negative and patient was cleared to get his dialysis catheter which was placed on 10/29/2021 6- patient will continue with Naficillin, and plan plan will be cefazolin with the dialysis so we can avoid PICC line placement, continue supportive care Time with Patient: Less than 30
--- NOTE | 2021-11-01 12:56 | P.PN ---
Subjective Progress Note Date: 11/01/21 Principal diagnosis: Bacteremia Patient is a 26 year old male with a past medical history significant for end-stage renal disease on hemodialysis presented to hospital with sepsis and bacteremia secondary to dialysis catheter infection which was removed the evening of 10/20/2021. Patient is status post I and D of the left knee and hip and ankle area completed 10/25/2021, patient is status post new permacatheter placement on 10/29/2021 as a blood culture from 10/26/2021 were negative On today's evaluation that is 11/01/2021, the patient denies any fever or chills , the patient denies chest pain shortness of breath or cough , the patient denies abdominal pain and no diarrhea, patient pain to the left knee or ankle area is currently controlled, patient overall feeling better no new symptoms Objective - Vital Signs Vital signs: Vital Signs Temp 98.9 F 11/01/21 03:50 Pulse 128 H 11/01/21 09:19 Resp 18 11/01/21 03:50 BP 127/60 11/01/21 09:19 Pulse Ox 96 11/01/21 09:19 FiO2 Intake & Output 10/31/21 11/01/21 11/01/21 18:59 06:59 18:59 Intake Total 1868 440 240 Output Total 1999 05 Balance -132 438 240 Intake: Intake, IV Titration 200 Amount Nafcillin 2 gm In 200 Dextrose 5% in Water 100 ml @ 100 mls/hr IVPB Q4HR [facility] Rx#:[id number] Oral 1558 240 240 Blood Product 310 Rc As-1 Unit 310 [id number] Output: Stool 2 Hemodialysis 1999 Other: Voiding Method Urinal Urinal # Voids 0 - Exam GENERAL DESCRIPTION: Young male lying in bed in no distress RESPIRATORY SYSTEM: Unlabored breathing , decreased breath sounds at bases HEART: S1 S2 regular rate and rhythm , ABDOMEN: Soft , no tenderness EXTREMITIES: No edema feet - Labs CBC & Chem 7: 10/31/21 08:18 10/31/21 08:18 Labs: Abnormal Lab Results - Last 24 Hours (Table) 10/31/21 Range/Units 09:27 Crossmatch See Detail Microbiology - Last 24 Hours (Table) 10/24/21 17:46 Gram Stain - Final Synovial Fluid Body Fluid Culture - Final Staphylococcus aureus 10/24/21 17:46 Gram Stain - Preliminary Knee - Left Body Fluid Culture - Preliminary 10/26/21 15:23 Blood Culture - Preliminary Blood No Growth after 120 hours 10/27/21 08:40 Blood Culture - Preliminary Blood No Growth after 96 hours Assessment and Plan (1) Positive blood culture Current Visit: No Status: Acute Code(s): R78.81 - BACTEREMIA SNOMED Code(s): 713908481 Plan: 1patient presented to hospital with sepsis source is likely dialysis catheter infection in this patient who did have a staphylococcal bacteremia which has been finalized as MSSA 2the patient dialysis catheter has been removed and tip has been sent for the culture which came back positive with MSSA. 3patient is status post I&D of the left hip and ankle in the area, cultures from the knee and ankle positive for MSSA 4patient did have persistent bacteremia echocardiogram did not show any vegetation 5patient blood culture 10/26/21 and 10/27/2021 are negative and patient was cleared to get his dialysis catheter which was placed on 10/29/2021 6- patient currently being treated with Naficillin, and plan is cefazolin 2 g post dialysis on Sunday and Sunday and 3 g post dialysis on Sunday for a total of 6 weeks prescription was provided to the patient RN and once antibiotic arranged he will be able to go home from ID standpoint with close outpatient follow-up Time with Patient: Less than 30
--- NOTE | 2021-11-01 13:27 | P.PN ---
Progress Note - Text Progress Note Date: 11/01/21 Chief Complaint: Not feeling well This is a 26-year-old patient, follows with Dr. Travis moore. Chronic stable medical conditions include end-stage kidney disease on hemodialysis Sunday and Sunday, essential hypertension, secondary hyperparathyroidism. Patient came in because of not feeling well. Unsteady weak diet and rundown. Unsure about fever. Blood drawn at the nephrology dialysis center was positive for gram-positive cocci. IV vancomycin was given. Patient is slightly delirious. Consultation nephrology denies D was done. Appetite fair denies any respiratory or urinary symptoms. Admitted with sepsis with positive blood culture from the dialysis center, delirium. IV vancomycin started. October 20: Tired. Decreased oral intake. Dialysis catheter to be taken out today. Patient received dialysis yesterday. Discussed with patient. Tired. Repeat blood cultures from yesterday growing staph aureus. October 21: Less delirious today. Dialysis catheter has been removed yesterday. Blood cultures from here growing staph aureus. Patient not hungry. Did not eat his breakfast. Tired. Patient complaining of pain around the left hip area. I ordered Doppler ultrasound that came back to be negative. Hip x-ray was also ordered and came back to be unremarkable. Orthopedics consulted. 10/23/2021 Patient is seen and evaluated in room at bedside; patient complains of generalized pain more so in Lasix; no complaint of chest pain or shortness of breath Vital signs are reviewed; blood pressure 169/98, pulse 111 Lab review shows a sodium of 123 which is down from 126 yesterday, potassium 5.9, bicarbonate 18, BUN/creatinine of 142/13.1 Repeat blood cultures drawn yesterday are reported positive; plan was to reinsert permacath if blood cultures were negative; nephrology recommending to proceed with placement of Angel catheter and dialyze the patient today and tomorrow due to worsening hyponatremia with plans to remove catheter after dialysis; patient will have a permacath placement once her cultures turn negative with possibility of paratonia dialysis in the meantime 10/24/2021 Patient is seen in follow-up this morning currently receiving hemodialysis. Multiple medical consultations including nephrology and infectious disease following. Blood cultures and catheter tip culture showing staph aureus and awaiting for bacteremia clearance. Patient will also need replacement dialysis catheter once cleared by infectious disease. Patient is currently maintained on 1500 mL fluid restrictions and will slightly increase as patient reports he is thirsty and not getting enough intake. Patient is currently afebrile and denies any chest pain or palpitations. 10/25/2021 Patient is seen in follow-up this morning and hemoglobin was found to be 6.8 and will transfuse 1 unit of PRBC. Patient is scheduled to undergo incision and drainage with possible debridement of the left hip and left lower extremity with orthopedics today. Patient also to have dialysis catheter removed by vascular surgery. Patient continues on fluid restrictions and is currently nothing by mouth for the procedure and diuretics being held. No plans for hemodialysis today. Patient is maintained on Sunday/Sunday/Sunday schedule and will gabby nue with nephrology following closely. Patient is also maintained on IV antibiotics with infectious disease following closely and will continue. Multiple culture showing MSSA and hopeful for cultures during surgery today. She is currently afebrile and denies chest pain or shortness of breath. Patient reports left leg pain. 10/26/2021 Patient is seen in follow-up today status post incision and drainage of the left lower extremity and left hip with orthopedics in currently maintained on IV antibiotics in the form of cefazolin with anxiety following closely. Patient being transitioned to nafcillin while awaiting for finalized cultures of the deep tissue cultures that were obtained during surgery. Patient had dialysis catheter removed and waiting prior to insertion of new catheter. 2-D echo was also ordered to assess for any vegetation. Patient continues with fevers and denies any chest pain or shortness of breath. Hemoglobin was 7.1 today after 1 unit of PRBCs yesterday. WBC trending up at 15.4 and BNP is noted with a creatinine of 8.08. Recommend close monitoring of vital signs and temperature control and continue to await for cultures. Patient reports his pain is curre ntly manageable and denies any chest pain or shortness of breath. 10/27/2021 Patient is seen today and continues on IV abx with multiple medical consultations following and blood cultures have been positive and awaiting repeat blood cultures for clearance of bacteremia. ID following closely and patient also remains without a dialysis catheter at this time. Patient continues with fevers as well and is status post I&D and debridement with ortho post op day 2. Patient hemoglobin is 6.9 and ordered a unit of prbc. Will hold for now and repeat am labs as patient has also not had dialysis for the last 2 days. Creatinine is 8 and nephrology following closely. Patient is extremely weak and will consult PT/OT. Patient denies chest pain or shortness of breath. 10/28/2021 Patient evaluated today continues to have positive blood cultures and awaiting repeat blood cultures that were drawn yesterday to monitor for clearance of bacteremia. Most recent have been negative for 24 hours and will await for 72 hour clearance prior to dialysis catheter placement. Patient continues with low-grade temps of 99 this morning. Patient also maintained on nafcillin with infectious disease following. Asians potassium critically elevated at 6.1 and hemoglobin remained 6.9. WBC is elevated as well at 22 and sodium is found to be 125 with a creatinine of 11.48. Nephrology following closely and may likely need a dialysis catheter temporary for hemodialysis. Ortho following and surgical drains removed of the left lower extremity. PT consulted. 10/29/2021 Patient is seen today and afebrile and maintained on IV antibiotics with ID following. Vascular surgery to place right chest wall dialysis catheter as patient needs emergent dialysis as he has continued elevated potassium and creatinine is above 11. Patient continues with weakness and will continue with PT and advance activity as tolerated. Patient received 1 unit of blood with hemoglobin 7.7. No reports of chest pain or shortness of breath. Encouraged oral intake. Patient was seen and covered by [facility] hospitalist from October 22 through October 29 10/30/2021: Patient getting hemodialysis today. Decreased appetite. On IV nafcillin. No pain. Laying in bed. Patient in the last few days however I&D of septic arthritis including left hip left knee and left ankle. All cultures growing MSSA. 10/31/2021: Two-level good breakfast. Not hungry for lunch. On IV nafcillin. And wish to be out of bed. Patient to be changed over to Ancef at dialysis upon discharge. Hemoglobin 6.9. 1 unit of PRBC ordered. 11/01/2021: On IV nafcillin. Tachycardia. Cardiology consulted. Discussed with the patient. We will try Marinol. Active Medications Acetaminophen (Acetaminophen Tab 325 Mg Tab) 650 mg PO Q4HR PRN PRN Reason: Fever and/ or Pain Last Admin: 10/31/21 19:43 Dose: 650 mg Hydrocodone Bitart/Acetaminophen (Hydrocodone/Apap 5-325mg 1 Each Tab) 1 each PO Q6HR PRN PRN Reason: Pain Last Admin: 11/01/21 05:07 Dose: 1 each Darbepoetin Luis E (Darbepoetin Luis E 40 Mcg/0.4 Ml Syringe) 40 mcg SQ Q7D [facility] Last Admin: 10/26/21 11:23 Dose: 40 mcg Nafcillin Sodium 2 gm/ (Dextrose/Water) 100 mls @ 100 mls/hr IVPB Q4HR [facility]; Protocol Last Admin: 11/01/21 11:59 Dose: 100 mls/hr Lorazepam (Lorazepam 0.5 Mg Tab) 0.5 mg PO Q6HR PRN PRN Reason: Anxiety Last Admin: 11/01/21 05:07 Dose: 0.5 mg Metoprolol Tartrate (Metoprolol Tartrate 12.5 Mg Tab) 12.5 mg PO BID [facility] Last Admin: 11/01/21 09:14 Dose: 12.5 mg Morphine Sulfate (Morphine Sulfate 4 Mg/Ml Syringe) 4 mg IVP Q4HR PRN PRN Reason: Pain Last Admin: 11/01/21 10:07 Dose: 4 mg Multivitamins (Multivitamins, Thera 1 Each Tab) 1 each PO DAILY [facility] Last Admin: 11/01/21 09:14 Dose: 1 each Naloxone HCl (Naloxone 0.4 Mg/Ml 1 Ml Vial) 0.2 mg IV Q2M PRN PRN Reason: Opioid Reversal Sevelamer Carbonate (Sevelamer 800 Mg Tab) 1,600 mg PO TID-W/MEALS [facility] Last Admin: 11/01/21 11:55 Dose: 1,600 mg Thiamine HCl (Thiamine 100 Mg Tab) 100 mg PO BID-W/MEALS [facility] Last Admin: 11/01/21 06:50 Dose: 100 mg Torsemide (Torsemide 20 Mg Tab) 80 mg PO DAILY [facility] Last Admin: 11/01/21 09:15 Dose: 80 mg Past medical history to include: End-stage kidney disease on hemodialysis, anemia of CK D, minimal bone disease Social history: Lives with his mother. Smokes about 5 bowls of marijuana daily. No alcohol or cigarette smoking. Family history: Diabetes, COPD, A. fib, CHF Physical examination: VITAL SIGNS: 100, 116, 160/87, 97% room air GENERAL: Reclining chair Right jugular dialysis catheter. EYES: Pupils equal. Conjunctiva normal. HEENT: External appearance of nose and ears normal, oral cavity grossly normal. NECK: JVD not raised; masses not palpable. HEART: First and second heart sounds are normal; no edema. LUNGS: Respiratory rate normal; clear to auscultation. ABDOMEN: Soft, nontender, liver spleen not palpable, no masses palpable. PSYCH: Answering questions appropriately MUSCULOSKELETAL:No Clubbing/cyanosis;muscles-grossly intact INVESTIGATIONS, reviewed in the clinical context: October 31: WBC 19 hemoglobin 6.9 potassium 4.5 creatinine 8.15 October 30: White count 19.8 hemoglobin 7.1 platelet 774 sodium 126 potassium 5.4 creatinine 9.96 October 21: Sodium 127 potassium 5.4 twice a day 2 creatinine 9.1 Urine drug screen: Positive for opiates, benzodiazepine, marijuana White count 12.4 hemoglobin 9 platelets 170 sodium 126 potassium 5.3 rate 80 creatinine 10.9 phosphorus 5.6 and magnesium 2.8 bilirubin 1.8 EKG tracing personally reviewed by me-sinus tachycardia rate of 1:30. Right b undle branch block pattern. Nonspecific ST segment changes. Assessment and plan: -Sepsis with blood cultures positive for MSSA. done at the dialysis center and from October 19. IV nafcillin Dialysis catheter removed October 20 -Polyarticular septic arthritis including the left hip, left knee, left ankle with I&D if all the joints. IV nafcillin -Acute delirium from sepsis: improvement Treat underlying infection -End-stage kidney disease on hemodialysis Sunday and Sunday On dialysis schedule -Anemia of chronic kidney disease, with acute exacerbation Follow H&H. Patient received 3 units blood. -mineral bone disease/CK D Supplements -Hyperphosphatemia secondary to CK D Renvela -Hypervolemic hyponatremia: Slow to respond Encourage oral intake. Fluid to be taken off at dialysis. -Anorexia multifactorial Start Marinol 5 mg twice a day -Sinus tachycardia likely combination of deconditioning and infection IV nafcillin. Dialysis tomorrow.. Will be discharged on IV Ancef. Cardiology consulted. Discussed with patient. Marinol added.
--- NOTE | 2021-11-01 14:17 | P.PN ---
Subjective Progress Note Date: 11/01/21 This patient is a 26- year old male who is status-post I&D left hip, left knee, left ankle for presumed septic arthritis, and irrigation and debridement left calf for hematoma versus abscess on 10/25/21. Today is post-operative day #7. Patient is examined bedside today. He states he is having minimal pain in the left lower extremity. Dressings were changed yesterday. He has no new complaints today. Denies nausea, vomiting, fevers, chills. Cardiology has been consulted today. Hemoglobin resulted as 6.9 yesterday and patient received 1 unit of PRBCs per internal medicine. Repeat hemoglobin has not yet been performed. Patient's blood cultures drawn on 10/26/21 show no growth. Intra-op culture taken of the left knee and left ankle positive for staph aureus. Objective - Vital Signs Vital signs: Vital Signs Temp 100 F H 11/01/21 11:53 Pulse 116 H 11/01/21 11:53 Resp 18 11/01/21 03:50 BP 160/87 11/01/21 11:53 Pulse Ox 97 11/01/21 11:53 FiO2 Intake & Output 10/31/21 11/01/21 11/01/21 18:59 06:59 18:59 Intake Total 1868 440 240 Output Total 1999 2 Balance -132 438 240 Weight 72.5 kg Intake: Intake, IV Titration 200 Amount Nafcillin 2 gm In 200 Dextrose 5% in Water 100 ml @ 100 mls/hr IVPB Q4HR [facility] Rx#:[id number] Oral 1558 240 240 Blood Product 310 Rc As-1 Unit 310 [id number] Output: Stool 2 Hemodialysis 1999 Other: Voiding Method Urinal Urinal # Voids 0 - Exam On examination, patient is sitting up in bed in no apparent distress. He is alert and oriented 3. On inspection of the left lower extremity, clean, dry, intact dressings in place over the left hip, left knee, left calf, and left ankle. There is minimal pain with palpation of the left hip, thigh, knee, calf, ankle, foot. Patient is able to wiggle toes appropriately. Foot is warm and well perfused. - Labs CBC & Chem 7: 10/31/21 08:18 10/31/21 08:18 Labs: Abnormal Lab Results - Last 24 Hours (Table) 10/31/21 Range/Units 09:27 Crossmatch See Detail Microbiology - Last 24 Hours (Table) 10/27/21 08:40 Blood Culture - Preliminary Blood No Growth after 120 hours 10/24/21 17:46 Gram Stain - Final Synovial Fluid Body Fluid Culture - Final Staphylococcus aureus 10/24/21 17:46 Gram Stain - Preliminary Knee - Left Body Fluid Culture - Preliminary 10/26/21 15:23 Blood Culture - Preliminary Blood No Growth after 120 hours Assessment and Plan Assessment: Status-post I&D left hip, left knee, left ankle for presumed septic arthritis, and irrigation and debridement left calf for hematoma versus abscess on 10/25/21. Post-operative day #7. Plan: - Patient may weight bear as tolerated on left lower extremity with a walker. PT consulted for mobilization. - Daily dressing changes over incisions. - Pain management as needed. - Intra-op cultures from left knee and left ankle positive for staph aureus. Antibiotics per infectious disease. - DVT prophylaxis per internal medicine. - We have no further plans for additional surgical intervention at this time. - We will follow patient closely. He is clear for discharge from an orthopedic standpoint.
[2021-11-01] MEDS: ACETAMINOPHEN TAB 325 MG TAB PO PRN ×2 (15:16→23:32)
[2021-11-02] MEDS: MORPHINE SULFATE 4 MG/ML SYRINGE IVP PRN ×2 (02:28→21:08)
[2021-11-02] MEDS: NAFCILLIN 2 GM in DEXTROSE 5% IN WATER 100 ML IVPB SCH ×10 (04:52→20:55)
[2021-11-02] MEDS: SEVELAMER 800 MG TAB PO SCH ×3 (06:42→17:26)
[2021-11-02] MEDS: THIAMINE 100 MG TAB PO SCH ×2 (06:42→17:26)
--- NOTE | 2021-11-02 10:17 | P.PN ---
Subjective Patient is seen in follow-up for end-stage renal disease. He is maintained on hemodialysis on Sunday schedule. Permacath placed 10/29/2021. Resting in bed. Denies chest pain or shortness of breath. Tolerating dialysis well. No active complaints. Vital signs are stable. General: Awake and alert. No acute distress. HEENT: Head exam is unremarkable. LUNGS: Breath sounds decreased. HEART: Rate and Rhythm are regular. ABDOMEN: Soft, no distention. EXTREMITITES: Trace edema. No drainage noted. Objective - Vital Signs Vital signs: Vital Signs Temp 98.4 F 11/02/21 04:56 Pulse 112 H 11/02/21 04:56 Resp 16 11/02/21 04:56 BP 174/86 11/02/21 04:56 Pulse Ox 95 11/02/21 04:56 FiO2 Intake & Output 11/01/21 11/02/21 11/02/21 18:59 06:59 18:59 Intake Total 960 118 Balance 960 118 Weight 72.5 kg Intake: IV 720 0.9 720 Oral 240 118 Other: Voiding Method Urinal # Voids 0 - Labs CBC & Chem 7: 10/31/21 08:18 10/31/21 08:18 Labs: Microbiology - Last 24 Hours (Table) 10/25/21 17:44 Gram Stain - Preliminary Hip - Left Tissue Culture - Preliminary 10/26/21 15:23 Blood Culture - Final Blood No Growth after 144 hours 10/27/21 08:40 Blood Culture - Preliminary Blood No Growth after 120 hours Assessment and Plan Plan: Assessment: 1. End-stage renal disease maintained on hemodialysis on Sunday schedule via permacath. 2. Hyponatremia secondary to chronic kidney disease. Hypervolemic. Expect improvement postdialysis. Better. 3. Anemia of chronic kidney disease. Iron replete. On Aranesp. Received blood transfusion this admission. No active bleeding. 4. Staph aureus bacteremia. Permacath removed 10/20/2021. Had a temporary femoral catheter placed which was removed 10/25/2021. Status post incision and drainage of the left hip and ankle cultures also positive for MSSA. On antibiotics. ID following. Permacath placed a 10/29/2021. 5. Chronic kidney disease mineral bone disease. Phosphorous 5.6. On Renvela. 6. Hyperkalemia secondary to chronic kidney disease. Improved postdialysis. Plan: Currently seen while undergoing hemodialysis. Next treatment on Sunday. Maintain torsemide. Cardiology consulted for tachycardia. On beta keisha.
[2021-11-02 10:42] LABS: Anisocytosis Slight; Basophils # (A) 0.1 k/uL (0-0.2); Basophils % (A) 1 %; Eosinophils # (A) 0.5 k/uL (0-0.7); Eosinophils % (A) 3 %; Hypochromasia Slight; Lymphocytes # (A) 1.4 k/uL (1.0-4.8); Lymphocytes % (A) 8 %; MCH 28.3 pg (25.0-35.0); MCHC 31.7 g/dL (31.0-37.0); MCV 89.2 fL (80.0-100.0); Mean Platelet Volume 8.7; Monocytes % (A) 6 %; Neutrophils % (A) 82 %; Platelet Count 757 k/uL (150-450); RBC 2.36 m/uL (4.30-5.90); RDW 18.1 % (11.5-15.5); WBC 18.2 k/uL (3.8-10.6)
--- NOTE | 2021-11-02 10:51 | CDI ---
Documentation Clarification Form Date: 11/02/2021 10:00:25 AM From: Gillian Smith RN, CCDS Admit Date: 10/18/2021 11:04:00 PM Patient Name: Armond Busby Visit Number: [id number] Discharge Date: ATTENTION: The Clinical Documentation Specialists (CDI) and [facility] Coding Staff appreciate your assistance in clarifying documentation. Please respond to the clarification below the line at the bottom and electronically sign. The CDI & [facility] Coding staff will review the response and follow-up if needed. Please note: Queries are made part of the Legal Health Record. If you have any questions, please contact the author of this message via ITS. Dr. Chano Smith Your patient has the documented symptom of delirium in the H/P and subsequent progress notes. To further clarify the severity of the patient's condition additional clarification regarding the etiology/cause of this symptom is requested. History/Risk Factors: ESRD on HD, Hypertension, Clinical Indicators: 26-year-old male present on 10/18 with complaints of not feeling well, weakness, lethargy. Blood culture at nephrology dialysis center was positive for gram-positive cocci. 10/18 Vital sign: 121/59 104 18 97.8 97 % RA 10/19 H/P and progress notes has patient, unsteady weak, slightly delirious. 10/19 Nephropathy consult: Patient is currently falling asleep as I speak to him. Weakness and lethargy. Rule out infection, Question Overdose. 10/19 Psychiatric consult: for possible overdose. Patient vehemently denies any significant overdose. 10/18 Labs: WBC 12.0, HGB 8.9, CHT 27.2 Neutrophils 10.4 Na+ 125, BUN 78, CR 9.83, Phosphorus 6.0, and Magnesium 2.6. UDS: Positive for Opiates, Benzodiazepines, Marijuana 10/19 Blood culture Staph aureus 10/19 Catheter Tip culture: Staph aureus 10/19 Chest X Ray: There is mild increased pulmonary interstitial density compared to last exam. Treatment: Cardiac/Telemetry Monitoring IV Vancomycin 1,500 MG Once, (PTD) 10/19-10/23 Monitor Blood cultures (per ID) Nafcillin Sodium 2 gm IVPB Q4 hours 6/ Kefzol 2 GM IVPB Q 12 hr. 10/22, change to 1 GM IV Q 24 hr. 10/23 Please further clarify the etiology of the delirium if known: [ ] Metabolic Encephalopathy due to sepsis [ ] Delirium with metabolic encephalopathy due to sepsis [ ] Toxic Encephalopathy with positive UDS [ ] Other condition (please specify) [ ] Unable to determine (Template Last Revised: May 2020) Other: Somnolent from being tired MTDD
--- NOTE | 2021-11-02 11:13 | CDI ---
Documentation Clarification Form Date: 11/02/2021 10:54:15 AM From: Gillian Smith RN, CCDS Admit Date: 10/18/2021 11:04:00 PM Patient Name: Armond Busby Visit Number: [id number] Discharge Date: ATTENTION: The Clinical Documentation Specialists (CDI) and [facility] Coding Staff appreciate your assistance in clarifying documentation. Please respond to the clarification below the line at the bottom and electronically sign. The CDI & [facility] Coding staff will review the response and follow-up if needed. Please note: Queries are made part of the Legal Health Record. If you have any questions, please contact the author of this message via ITS. Dr. Chano Smith Sepsis with blood cultures positive for MSSA is documented in your H/P and subsequent progress notes and patient is noted to have Dialysis Catheter tip culture positive for Staph aureus on 10/20/21. Please clarify if there is a relationship between the diagnosis and Dialysis Catheter. 10/21 ID Consult and subsequent documentation: Patient presented to hospital with sepsis source is likely dialysis catheter infection in this patient who did have a staphylococcal bacteremia. History/Risk Factors: ESRD on HD, Hypertension, Clinical Indicators: 26-year-old male present on 10/18 with complaints of not feeling well, weakness, lethargy. Blood culture at nephrology dialysis center was positive for gram-positive cocci. He was ruled in for sepsis. Treatment: Cardiac/Telemetry Monitoring 10/20 Removal of dialysis catheter, right jugular approach IV Vancomycin 1,500 MG Once, (PTD) 10/19-10/23 Monitor Blood cultures (per ID) Nafcillin Sodium 2 gm IVPB Q4 hours 10/26-11/02 Kefzol 2 GM IVPB Q 12 hr. 10/22, change to 1 GM IV Q 24 hr. 10/23 Please clarify the relationship, if any, which is clinically appropriate for this patient: [ ] Sepsis with blood cultures positive for gram-positive cocci due to dialysis catheter (right jugular catheter removed October 20) [ ] Other explanation of clinical findings (please specify) [ ] Unable to determine (no explanation for clinical findings) (Template Last Revised: June 2020) Sepsis with blood cultures positive for gram-positive cocci due to dialysis catheter MTDD
[2021-11-02 11:18] LABS: HGB 6.7 gm/dL (13.0-17.5)
[2021-11-02] MEDS: MULTIVITAMINS, THERA 1 EACH TAB PO SCH (12:35)
[2021-11-02] MEDS: TORSEMIDE 20 MG TAB PO SCH (12:35)
[2021-11-02] MEDS: ENOXAPARIN 30 MG/0.3 ML SYRINGE SQ SCH (12:36)
[2021-11-02] MEDS: METOPROLOL TARTRATE 25 MG TAB PO SCH ×2 (12:37→21:08)
[2021-11-02] MEDS: ACETAMINOPHEN TAB 325 MG TAB PO PRN ×2 (12:46→18:48)
--- NOTE | 2021-11-02 13:17 | P.CRDCN ---
History of Present Illness History of present illness: HISTORY OF PRESENTING ILLNESS This is a pleasant 26-year-old male past medical history significant for end- stage renal disease on hemodialysis, hypertension, hyperparathyroidism. Patient does not follow with a supervisor of officials. We have been asked to see in consultation for tachycardia. Patient presents emergency department on 10/18/2021 with complaints of not feeling well, increased generalized weakness, low grade fevers, tachycardic, increased confusion. He was sent to the ER secondary to abnormal outpatient labs. He was found to have elevated WBC and positive blood cultures with staphylococcus aureus. He has been evaluated by Infectious Disease, Nephrology, and Vascular. Orthopedics was consulted for back, leg and left hip pain. Patient underwent I&D of the left hip, left knee and left ankle with presumed septic arthritis on 10/21/2021. Cultures came back positive for MSSA. and Irrigation and debridement of the left calf for hematoma vs abscess on 10/25/21. His dialysis catheter was removed and tip was sent for culture that also came back positive for MSSA. His dialysis catheter was replaced on 10/29/2021. Patient seen and examined at bedside, on dialysis, no acute distress. Endorses some mild shortness of breath when standing but has improved. Denies any chest pain, palpiations lightheadedness, dizziness, chills, cough. DIAGNOSTICS EKG reveals on admission, sinus tachycardia, right bundle branch block, heart rate 130, no acute ST or T wave abnormalities to suggest ischemia Telemetry tracings indicate sinus tachycardia 100-120s Laboratory reviewed, WBC 18.2 HGb 6.7, Plt 757 Current home cardiac medications include Coreg 3.125 mg twice a day, amlodipine 5 mg daily, torsemide 40 mg daily. 10/27/2021 echocardiogram revealed an EF of 5560 percent, no evidence of veg etation noted. Mild mitral regurgitation, mild tricuspid regurgitation REVIEW OF SYSTEMS At the time of my exam: CONSTITUTIONAL: Denies fever or chills. CARDIOVASCULAR: Denies chest pain, shortness of breath, orthopnea, PND or palpitations. RESPIRATORY: Denies cough. GASTROINTESTINAL: Denies abdominal pain, diarrhea, constipation, nausea or vomiting. MUSCULOSKELETAL: Denies myalgias. NEUROLOGIC: Denies numbness, tingling, headacbe or weakness. ENDOCRINE: Denies fatigue, weight change, polydipsia or polyurina. GENITOURINARY: Denies burning, hematuria or urgency with micturation. HEMATOLOGIC: +history of anemia Denies bleeding. PHYSICAL EXAMINATION Vitals reviewed CONSTITUTIONAL: No apparent distress. HEENT: Head is normocephalic. Pupils are equal, round. Sclerae anicteric. Mucous membranes of the mouth are moist. No JVD. No carotid bruit. CHEST EXAMINATION: Lungs are clear to auscultation. No chest wall tenderness is noted on palpation or with deep breathing. HEART EXAMINATION: Regular rate and rhythm. S1, S2 heard. No murmurs, gallops or rub. ABDOMEN: Soft, nontender. Positive bowel sounds. EXTREMITIES: mild swelling in the left lower extremity and no calf tenderness. NEUROLOGIC EXAMINATION: Patient is awake, alert and oriented x3. ASSESSMENT Sinus tachycardia, related to sepsis no evidence of arrhythmia Staph aureus bacteremia Sepsis, blood cultures positive for MSSA, Dialysis catheter positive MSSA Septic arthritis s/p I&D of left hip, left knee, left ankle on 10/21/2021 cultures also positive for MSSA Status post Irrigation and debridement of the left calf for hematoma vs abscess on 10/25/21 End-stage kidney disease on hemodialysis Anemia Hyponatremia Hyperkalemia PLAN Increase metoprolol 25mg BID Infectious disease and primary requesting a DEVEN. NPO after midnight Plan for DEVEN tomorrow with Dr. Moore I have discussed the risks, benefits and alternative therapies for the above- mentioned procedure and for both sedation/analgesia, as they pertain to this patient. The patient has indicated understanding and acceptance of the risks and procedures discussed. Questions have been answered appropriately and he is agreeable to move forward with the above-stated procedure. Nurse practitioner note has been reviewed by physician. Signing provider agrees with the documented findings, assessment, and plan of care. Past Medical History Past Medical History: Dialysis, Hypertension Additional Past Medical History / Comment(s): Covid 19 03/2020, past protein in urine, occasional nose bleeds dialysis M-W-F. port rt chest History of Any Multi-Drug Resistant Organisms: None Reported Past Surgical History: No Surgical Hx Reported Additional Past Surgical History / Comment(s): chest port x2. tooth extraction Past Anesthesia/Blood Transfusion Reactions: Previous Problems w/ Anesthesia Additional Past Anesthesia/Blood Transfusion Reaction / Comment(s): 1st port no issue, 2nd port replacement "felt everything Past Psychological History: Anxiety Smoking Status: Never smoker Past Alcohol Use History: None Reported Past Drug Use History: Marijuana - Past Family History Mother History Unknown: Yes Family Medical History: Diabetes Mellitus Additional Family Medical History / Comment(s): heart mummur. Grandmother had COPD, A fib and CHF. Father History Unknown: Yes Additional Family Medical History / Comment(s): Grandfather had dialysis for a couple of years. Medications and Allergies Home Medications Medication Instructions Recorded Confirmed Type amLODIPine [Norvasc] 5 mg PO DAILY #30 tab 09/17/20 10/18/21 Rx Auryxia 210mg 840 tab PO TID-W/MEALS 11/15/20 10/18/21 History Calcium Acetate [PhosLo] 1,334 mg PO TID-W/MEALS 11/15/20 10/18/21 History Calcium Acetate [PhosLo] 667 mg PO DAILY PRN 11/15/20 10/18/21 History Renaplex-D 1 tab PO DAILY 11/15/20 10/18/21 History carvediloL [Coreg] 3.125 mg PO BID-W/MEALS 11/15/20 10/18/21 History Torsemide [Demadex] 40 mg PO DAILY 02/24/21 10/18/21 History Cyclobenzaprine [Flexeril] 5 mg PO TID PRN 10/18/21 10/18/21 History Lidocaine-Prilocaine Cream [Emla 1 applic TOPICAL DIRECTED PRN 10/18/21 10/18/21 History Cream 2.5%/2.5%] Sevelamer Carbonate 800 mg PO DAILY PRN 10/18/21 10/18/21 History Sevelamer [Renvela] 1,600 mg PO TID-W/MEALS 10/18/21 10/18/21 History Allergies Allergy/AdvReac Type Severity Reaction Status Date / Time chlorhexidine Allergy Itching Verified 10/18/21 22:07 Physical Exam Vitals: Vital Signs Temp Pulse Resp BP Pulse Ox 11/01/21 11:53 100 F H 116 H 160/87 97 11/01/21 09:19 128 H 127/60 96 11/01/21 09:15 128 H 11/01/21 03:50 98.9 F 114 H 18 140/86 96 11/01/21 02:00 105 H 16 11/01/21 00:00 98.6 F 105 H 16 136/80 97 10/31/21 20:00 99.4 F 110 H 18 142/72 98 10/31/21 16:00 98 F 115 H 19 143/78 97 Intake and Output 10/31/21 11/01/21 11/01/21 22:59 06:59 14:59 Intake Total 1440 440 240 Output Total 1 1 Balance 1439 439 240 Intake: Intake, IV Titration 200 Amount Nafcillin 2 gm In 200 Dextrose 5% in Water 100 ml @ 100 mls/hr IVPB Q4HR [facility] Rx#:[id number] Oral 1440 240 240 Output: Stool 1 1 Other: Voiding Method Urinal Urinal # Voids 0 Weight 72.5 kg Results 11/02/21 10:32 10/31/21 08:18 Current Medications Generic Name Dose Route Start Last Admin Trade Name Freq PRN Reason Stop Dose Admin Acetaminophen 650 mg 10/21/21 13:01 10/31/21 19:43 Acetaminophen Tab 325 Mg Tab PO 650 mg Q4HR PRN Administration Fever and/ or Pain Hydrocodone Bitart/Acetaminophen 1 each 10/25/21 18:21 11/01/21 05:07 Hydrocodone/Apap 5-325mg 1 Each Tab PO 1 each Q6HR PRN Administration Pain Darbepoetin Luis E 40 mcg 10/19/21 10:15 10/26/21 11:23 Darbepoetin Luis E 40 Mcg/0.4 Ml Syringe SQ 40 mcg Q7D [facility] Administration Dronabinol 5 mg 11/01/21 13:23 11/01/21 14:19 Dronabinol 2.5 Mg Cap PO 5 mg AC-BID [facility]AVA Administration Nafcillin Sodium 2 gm/ 100 mls @ 100 mls/hr 10/26/21 16:00 11/01/21 11:59 Dextrose/Water IVPB 100 mls/hr Q4HR [facility] Administration Protocol Lorazepam 0.5 mg 10/19/21 11:58 11/01/21 05:07 Lorazepam 0.5 Mg Tab PO 0.5 mg Q6HR PRN Administration Anxiety Metoprolol Tartrate 12.5 mg 10/31/21 09:15 11/01/21 09:14 Metoprolol Tartrate 12.5 Mg Tab PO 12.5 mg BID CHAVA Administration Morphine Sulfate 4 mg 10/18/21 22:00 11/01/21 10:07 Morphine Sulfate 4 Mg/Ml Syringe IVP 4 mg Q4HR PRN Administration Pain Multivitamins 1 each 10/19/21 09:00 11/01/21 09:14 Multivitamins, Thera 1 Each Tab PO 1 each DAILY [facility]AVA Administration Naloxone HCl 0.2 mg 10/18/21 23:04 Naloxone 0.4 Mg/Ml 1 Ml Vial IV Q2M PRN Opioid Reversal Sevelamer Carbonate 1,600 mg 10/19/21 12:30 11/01/21 11:55 Sevelamer 800 Mg Tab PO 1,600 mg TID-W/MEALS CHAVA Administration Thiamine HCl 100 mg 10/19/21 17:30 11/01/21 06:50 Thiamine 100 Mg Tab PO 100 mg BID-W/MEALS CHAVA Administration Torsemide 80 mg 10/23/21 09:00 11/01/21 09:15 Torsemide 20 Mg Tab PO 80 mg DAILY CHAVA Administration Intake and Output 10/31/21 11/01/21 11/01/21 22:59 06:59 14:59 Intake Total 1440 440 240 Output Total 1 1 Balance 1439 439 240 Intake: Intake, IV Titration 200 Amount Nafcillin 2 gm In 200 Dextrose 5% in Water 100 ml @ 100 mls/hr IVPB Q4HR [facility] Rx#:[id number] Oral 1440 240 240 Output: Stool 1 1 Other: Voiding Method Urinal Urinal # Voids 0 Weight 72.5 kg Patient Weight 11/02/21 06:59 Weight 72.5 kg 10/31/21 08:18 10/31/21 08:18
[2021-11-02] MEDS: DARBEPOETIN ALFA 40 MCG/0.4 ML SYRINGE SQ SCH (13:26)
[2021-11-02] MEDS: METOPROLOL TARTRATE 12.5 MG TAB PO SCH (13:44)
--- NOTE | 2021-11-02 16:01 | P.PN ---
Progress Note - Text Progress Note Date: 11/02/21 Chief Complaint: Not feeling well This is a 26-year-old patient, follows with Dr. Travis moore. Chronic stable medical conditions include end-stage kidney disease on hemodialysis Sunday and Sunday, essential hypertension, secondary hyperparathyroidism. Patient came in because of not feeling well. Unsteady weak diet and rundown. Unsure about fever. Blood drawn at the nephrology dialysis center was positive for gram-positive cocci. IV vancomycin was given. Patient is slightly delirious. Consultation nephrology denies D was done. Appetite fair denies any respiratory or urinary symptoms. Admitted with sepsis with positive blood culture from the dialysis center, delirium. IV vancomycin started. October 20: Tired. Decreased oral intake. Dialysis catheter to be taken out today. Patient received dialysis yesterday. Discussed with patient. Tired. Repeat blood cultures from yesterday growing staph aureus. October 21: Less delirious today. Dialysis catheter has been removed yesterday. Blood cultures from here growing staph aureus. Patient not hungry. Did not eat his breakfast. Tired. Patient complaining of pain around the left hip area. I ordered Doppler ultrasound that came back to be negative. Hip x-ray was also ordered and came back to be unremarkable. Orthopedics consulted. 10/23/2021 Patient is seen and evaluated in room at bedside; patient complains of generalized pain more so in Lasix; no complaint of chest pain or shortness of breath Vital signs are reviewed; blood pressure 169/98, pulse 111 Lab review shows a sodium of 123 which is down from 126 yesterday, potassium 5.9, bicarbonate 18, BUN/creatinine of 142/13.1 Repeat blood cultures drawn yesterday are reported positive; plan was to reinsert permacath if blood cultures were negative; nephrology recommending to proceed with placement of Angel catheter and dialyze the patient today and tomorrow due to worsening hyponatremia with plans to remove catheter after dialysis; patient will have a permacath placement once her cultures turn negative with possibility of paratonia dialysis in the meantime 10/24/2021 Patient is seen in follow-up this morning currently receiving hemodialysis. Multiple medical consultations including nephrology and infectious disease following. Blood cultures and catheter tip culture showing staph aureus and awaiting for bacteremia clearance. Patient will also need replacement dialysis catheter once cleared by infectious disease. Patient is currently maintained on 1500 mL fluid restrictions and will slightly increase as patient reports he is thirsty and not getting enough intake. Patient is currently afebrile and denies any chest pain or palpitations. 10/25/2021 Patient is seen in follow-up this morning and hemoglobin was found to be 6.8 and will transfuse 1 unit of PRBC. Patient is scheduled to undergo incision and drainage with possible debridement of the left hip and left lower extremity with orthopedics today. Patient also to have dialysis catheter removed by vascular surgery. Patient continues on fluid restrictions and is currently nothing by mouth for the procedure and diuretics being held. No plans for hemodialysis today. Patient is maintained on Sunday/Sunday/Sunday schedule and will gabby nue with nephrology following closely. Patient is also maintained on IV antibiotics with infectious disease following closely and will continue. Multiple culture showing MSSA and hopeful for cultures during surgery today. She is currently afebrile and denies chest pain or shortness of breath. Patient reports left leg pain. 10/26/2021 Patient is seen in follow-up today status post incision and drainage of the left lower extremity and left hip with orthopedics in currently maintained on IV antibiotics in the form of cefazolin with anxiety following closely. Patient being transitioned to nafcillin while awaiting for finalized cultures of the deep tissue cultures that were obtained during surgery. Patient had dialysis catheter removed and waiting prior to insertion of new catheter. 2-D echo was also ordered to assess for any vegetation. Patient continues with fevers and denies any chest pain or shortness of breath. Hemoglobin was 7.1 today after 1 unit of PRBCs yesterday. WBC trending up at 15.4 and BNP is noted with a creatinine of 8.08. Recommend close monitoring of vital signs and temperature control and continue to await for cultures. Patient reports his pain is curre ntly manageable and denies any chest pain or shortness of breath. 10/27/2021 Patient is seen today and continues on IV abx with multiple medical consultations following and blood cultures have been positive and awaiting repeat blood cultures for clearance of bacteremia. ID following closely and patient also remains without a dialysis catheter at this time. Patient continues with fevers as well and is status post I&D and debridement with ortho post op day 2. Patient hemoglobin is 6.9 and ordered a unit of prbc. Will hold for now and repeat am labs as patient has also not had dialysis for the last 2 days. Creatinine is 8 and nephrology following closely. Patient is extremely weak and will consult PT/OT. Patient denies chest pain or shortness of breath. 10/28/2021 Patient evaluated today continues to have positive blood cultures and awaiting repeat blood cultures that were drawn yesterday to monitor for clearance of bacteremia. Most recent have been negative for 24 hours and will await for 72 hour clearance prior to dialysis catheter placement. Patient continues with low-grade temps of 99 this morning. Patient also maintained on nafcillin with infectious disease following. Asians potassium critically elevated at 6.1 and hemoglobin remained 6.9. WBC is elevated as well at 22 and sodium is found to be 125 with a creatinine of 11.48. Nephrology following closely and may likely need a dialysis catheter temporary for hemodialysis. Ortho following and surgical drains removed of the left lower extremity. PT consulted. 10/29/2021 Patient is seen today and afebrile and maintained on IV antibiotics with ID following. Vascular surgery to place right chest wall dialysis catheter as patient needs emergent dialysis as he has continued elevated potassium and creatinine is above 11. Patient continues with weakness and will continue with PT and advance activity as tolerated. Patient received 1 unit of blood with hemoglobin 7.7. No reports of chest pain or shortness of breath. Encouraged oral intake. Patient was seen and covered by [facility] hospitalist from October 22 through October 29 10/30/2021: Patient getting hemodialysis today. Decreased appetite. On IV nafcillin. No pain. Laying in bed. Patient in the last few days however I&D of septic arthritis including left hip left knee and left ankle. All cultures growing MSSA. 10/31/2021: Two-level good breakfast. Not hungry for lunch. On IV nafcillin. And wish to be out of bed. Patient to be changed over to Ancef at dialysis upon discharge. Hemoglobin 6.9. 1 unit of PRBC ordered. 11/01/2021: On IV nafcillin. Tachycardia. Cardiology consulted. Discussed with the patient. We will try Marinol. 11/02/2021: Remains tachycardic. Spiked a fever to 101 earlier. Discussed with ID. DEVEN ordered with cardiology. Patient started on Marinol yesterday. Feels tired. Hemoglobin 6.7. 1 unit of blood ordered. Hemodialysis today. Active Medications Acetaminophen (Acetaminophen Tab 325 Mg Tab) 650 mg PO Q4HR PRN PRN Reason: Fever and/ or Pain Last Admin: 11/02/21 12:46 Dose: 650 mg Hydrocodone Bitart/Acetaminophen (Hydrocodone/Apap 5-325mg 1 Each Tab) 1 each PO Q6HR PRN PRN Reason: Pain Last Admin: 11/01/21 23:32 Dose: 1 each Darbepoetin Luis E (Darbepoetin Luis E 40 Mcg/0.4 Ml Syringe) 40 mcg SQ Q7D [facility] Last Admin: 11/02/21 13:26 Dose: 40 mcg Dronabinol (Dronabinol 2.5 Mg Cap) 5 mg PO AC-BID [facility] Last Admin: 11/02/21 06:42 Dose: 5 mg Enoxaparin Sodium (Enoxaparin 30 Mg/0.3 Ml Syringe) 30 mg SQ DAILY [facility] Last Admin: 11/02/21 12:36 Dose: 30 mg Nafcillin Sodium 2 gm/ (Dextrose/Water) 100 mls @ 100 mls/hr IVPB Q4HR [facility]; Protocol Last Admin: 11/02/21 13:56 Dose: Not Given Lorazepam (Lorazepam 0.5 Mg Tab) 0.5 mg PO Q6HR PRN PRN Reason: Anxiety Last Admin: 11/01/21 23:32 Dose: 0.5 mg Metoprolol Tartrate (Metoprolol Tartrate 25 Mg Tab) 25 mg PO BID [facility] Last Admin: 11/02/21 12:37 Dose: 25 mg Morphine Sulfate (Morphine Sulfate 4 Mg/Ml Syringe) 4 mg IVP Q4HR PRN PRN Reason: Pain Last Admin: 11/02/21 02:28 Dose: 4 mg Multivitamins (Multivitamins, Thera 1 Each Tab) 1 each PO DAILY [facility] Last Admin: 11/02/21 12:35 Dose: 1 each Naloxone HCl (Naloxone 0.4 Mg/Ml 1 Ml Vial) 0.2 mg IV Q2M PRN PRN Reason: Opioid Reversal Sevelamer Carbonate (Sevelamer 800 Mg Tab) 1,600 mg PO TID-W/MEALS [facility] Last Admin: 11/02/21 12:36 Dose: 1,600 mg Thiamine HCl (Thiamine 100 Mg Tab) 100 mg PO BID-W/MEALS [facility] Last Admin: 11/02/21 06:42 Dose: 100 mg Torsemide (Torsemide 20 Mg Tab) 80 mg PO DAILY [facility] Last Admin: 11/02/21 12:35 Dose: 80 mg Past medical history to include: End-stage kidney disease on hemodialysis, anemia of CK D, minimal bone disease Social history: Lives with his mother. Smokes about 5 bowls of marijuana daily. No alcohol or cigarette smoking. Family history: Diabetes, COPD, A. fib, CHF Physical examination: VITAL SIGNS: T-max 101.6, 122, 16, 169/83, 94% room air GENERAL: Reclining chair Right jugular dialysis catheter. EYES: Pupils equal. Conjunctiva normal. HEENT: External appearance of nose and ears normal, oral cavity grossly normal. NECK: JVD not raised; masses not palpable. HEART: First and second heart sounds are normal; no edema. LUNGS: Respiratory rate normal; clear to auscultation. ABDOMEN: Soft, nontender, liver spleen not palpable, no masses palpable. PSYCH: Answering questions appropriately MUSCULOSKELETAL:No Clubbing/cyanosis;muscles-grossly intact INVESTIGATIONS, reviewed in the clinical context: November 02: White count 8.2 hemoglobin 6.7 platelets 757 October 31: WBC 19 hemoglobin 6.9 potassium 4.5 creatinine 8.15 October 30: White count 19.8 hemoglobin 7.1 platelet 774 sodium 126 potassium 5.4 creatinine 9.96 October 21: Sodium 127 potassium 5.4 twice a day 2 creatinine 9.1 Urine drug screen: Positive for opiates, benzodiazepine, marijuana White count 12.4 hemoglobin 9 platelets 170 sodium 126 potassium 5.3 rate 80 creatinine 10.9 phosphorus 5.6 and magnesium 2.8 bilirubin 1.8 EKG tracing personally reviewed by va-sinus tachycardia rate of 1:30. Right bundle branch block pattern. Nonspecific ST segment changes. Assessment and plan: -Sepsis with blood cultures positive for MSSA. done at the dialysis center and from October 19.: Slow to respond IV nafcillin Dialysis catheter removed October 20. Blood culture negative on October 27. -Recurrence of fever Rule out endometritis. DEVEN -Polyarticular septic arthritis including the left hip, left knee, left ankle with I&D if all the joints. IV nafcillin -Acute delirium from sepsis: improvement Treat underlying infection -End-stage kidney disease on hemodialysis Sunday and Sunday On dialysis schedule -Anemia of chronic kidney disease, dropped hemoglobin to 6.7. Follow H&H. Patient received 3 units blood. -mineral bone disease/CK D Supplements -Hyperphosphatemia secondary to CK D Renvela -Hypervolemic hyponatremia: Slow to respond Encourage oral intake. Fluid to be taken off at dialysis. -Anorexia multifactorial Start Marinol 5 mg twice a day -Sinus tachycardia likely combination of deconditioning and infection IV nafcillin. DEVEN ordered. 1 unit of blood ordered. Hemoccult dialysis today. Discussed with ID.
--- NOTE | 2021-11-02 17:03 | P.PN ---
Subjective Progress Note Date: 11/02/21 This patient is a 26- year old male who is status-post I&D left hip, left knee, left ankle for presumed septic arthritis, and irrigation and debridement left calf for hematoma versus abscess on 10/25/21. Today is post-operative day #8. Patient is examined bedside today with Dr. Stokes. Repeat hemoglobin has not yet been performed. Patient's blood cultures drawn on 10/26/21 show no growth. Intra-op culture taken of the left knee and left ankle positive for staph aureus. Patient has no new complaints in regard to his left lower extremity. Objective - Vital Signs Vital signs: Vital Signs Temp 98.2 F 11/02/21 16:38 Pulse 124 H 11/02/21 16:38 Resp 16 11/02/21 16:38 BP 137/76 11/02/21 16:38 Pulse Ox 94 L 11/02/21 08:00 FiO2 Intake & Output 11/01/21 11/02/21 11/02/21 18:59 06:59 18:59 Intake Total 960 236 Output Total 2500 Balance 960 -2264 Weight 72.5 kg Intake: IV 720 0.9 720 Oral 240 236 Blood Product 0 Rc As-1 Unit 0 [id number] Output: Hemodialysis 2500 Other: Voiding Method Urinal Urinal # Voids 0 - Exam On examination, patient is sitting up in bed in no apparent distress. He is alert and oriented 3. On inspection of the left lower extremity, clean, dry, intact dressings in place over the left hip, left knee, left calf, and left ankle. There is minimal pain with palpation of the left hip, thigh, knee, calf, ankle, foot. Patient is able to wiggle toes appropriately. Foot is warm and well perfused. - Labs CBC & Chem 7: 11/02/21 10:32 10/31/21 08:18 Labs: Abnormal Lab Results - Last 24 Hours (Table) 10/31/21 11/02/21 Range/Units 09:27 10:32 WBC 18.2 H (3.8-10.6) k/uL RBC 2.36 L (4.30-5.90) m/uL Hgb 6.7 L* (13.0-17.5) gm/dL Hct 21.0 L (39.0-53.0) % RDW 18.1 H (11.5-15.5) % Plt Count 757 H (150-450) k/uL Neutrophils # 15.0 H (1.3-7.7) k/uL Crossmatch See Detail Microbiology - Last 24 Hours (Table) 10/27/21 08:40 Blood Culture - Final Blood No Growth after 144 hours 10/25/21 17:44 Gram Stain - Preliminary Hip - Left Tissue Culture - Preliminary 10/26/21 15:23 Blood Culture - Final Blood No Growth after 144 hours Assessment and Plan Assessment: Status-post I&D left hip, left knee, left ankle for presumed septic arthritis, and irrigation and debridement left calf for hematoma versus abscess on 10/25/21. Post-operative day #8. Plan: - Patient may weight bear as tolerated on left lower extremity with a walker. PT consulted for mobilization. - Daily dressing changes over incisions. - Pain management as needed. - Intra-op cultures from left knee and left ankle positive for staph aureus. Antibiotics per infectious disease. - DVT prophylaxis per internal medicine. - We have no further plans for additional surgical intervention at this time. - We will follow patient as needed. He is clear for discharge from an orthopedic standpoint.
[2021-11-02] MEDS: HYDROcodone/APAP 5-325MG 1 EACH TAB PO PRN (19:48)
[2021-11-02] MEDS ORDERED: METOPROLOL TARTRATE 25 MG TAB PO SCH (21:00)
[2021-11-03] MEDS: NAFCILLIN 2 GM in DEXTROSE 5% IN WATER 100 ML IVPB SCH ×14 (00:50→23:04)
[2021-11-03] MEDS: SEVELAMER 800 MG TAB PO SCH ×3 (06:39→17:12)
[2021-11-03] MEDS: THIAMINE 100 MG TAB PO SCH ×3 (06:40→17:12)
--- NOTE | 2021-11-03 07:05 | P.PN ---
Subjective Progress Note Date: 11/02/21 Principal diagnosis: Bacteremia Patient is a 26 year old male with a past medical history significant for end-stage renal disease on hemodialysis presented to hospital with sepsis and bacteremia secondary to dialysis catheter infection which was removed the evening of 10/20/2021. Patient is status post I and D of the left knee and hip and ankle area completed 10/25/2021, patient is status post new permacatheter placement on 10/29/2021 as a blood culture from 10/26/2021 were negative On today's evaluation that is 11/02/2021, the patient did spike a fever of 101F , the patient denies chest pain shortness of breath or cough , the patient denies abdominal pain and no diarrhea, patient denies any worsening pain to the left knee or ankle area Objective - Vital Signs Vital signs: Vital Signs Temp 100.9 F H 11/02/21 12:15 Pulse 123 H 11/02/21 12:15 Resp 17 11/02/21 08:00 BP 172/122 11/02/21 11:15 Pulse Ox 94 L 11/02/21 08:00 FiO2 Intake & Output 11/01/21 11/02/21 11/02/21 18:59 06:59 18:59 Intake Total 960 118 Balance 960 118 Weight 72.5 kg Intake: IV 720 0.9 720 Oral 240 118 Other: Voiding Method Urinal Urinal # Voids 0 - Exam GENERAL DESCRIPTION: Young male lying in bed in no distress RESPIRATORY SYSTEM: Unlabored breathing , decreased breath sounds at bases HEART: S1 S2 regular rate and rhythm , ABDOMEN: Soft , no tenderness EXTREMITIES: No edema feet - Labs CBC & Chem 7: 11/02/21 10:32 10/31/21 08:18 Labs: Abnormal Lab Results - Last 24 Hours (Table) 10/31/21 11/02/21 Range/Units 09:27 10:32 WBC 18.2 H (3.8-10.6) k/uL RBC 2.36 L (4.30-5.90) m/uL Hgb 6.7 L* (13.0-17.5) gm/dL Hct 21.0 L (39.0-53.0) % RDW 18.1 H (11.5-15.5) % Plt Count 757 H (150-450) k/uL Neutrophils # 15.0 H (1.3-7.7) k/uL Crossmatch See Detail Microbiology - Last 24 Hours (Table) 10/27/21 08:40 Blood Culture - Final Blood No Growth after 144 hours 10/25/21 17:44 Gram Stain - Preliminary Hip - Left Tissue Culture - Preliminary 10/26/21 15:23 Blood Culture - Final Blood No Growth after 144 hours Assessment and Plan (1) Positive blood culture Current Visit: No Status: Acute Code(s): R78.81 - BACTEREMIA SNOMED Code(s): 975487834 Plan: 1patient presented to hospital with sepsis source is likely dialysis catheter infection in this patient who did have a staphylococcal bacteremia which has been finalized as MSSA 2the patient dialysis catheter has been removed and tip has been sent for the culture which came back positive with MSSA. 3patient is status post I&D of the left hip and ankle in the area, cultures from the knee and ankle positive for MSSA 4patient did have persistent bacteremia echocardiogram did not show any vege tation 5patient blood culture 10/26/21 and 10/27/2021 are negative and patient was cleared to get his dialysis catheter which was placed on 10/29/2021 6patient with a new fever which is slightly concerning also have a drop in hemoglobin with a question of possible hematoma, underlying endovascular infection less likely but not entirely excluded DEVEN has been ordered 7- patient to continue with Naficillin Time with Patient: Less than 30
[2021-11-03] MEDS ORDERED: fentaNYL (PF) 50 MCG/ML 2 ML AMP ONE (09:52)
[2021-11-03 09:59] LABS: Calcium 8.6 mg/dL (8.4-10.2); Potassium 4.2 mmol/L (3.5-5.1)
[2021-11-03] MEDS ORDERED: DESMOPRESSIN ACETATE 22 MCG in SODIUM CHLORIDE 0.9% 50 ML IVPB ONE (10:09)
[2021-11-03] MEDS: BENZOCAINE SPRAY 1 CAN TOPICAL ONE ×2 (10:11→10:14)
--- NOTE | 2021-11-03 10:11 | P.PN ---
Subjective Patient is seen in follow-up for end-stage renal disease. He is maintained on hemodialysis on Sunday schedule. Permacath placed 10/29/2021. Resting in bed. Denies chest pain or shortness of breath. Tolerating dialysis well. No active complaints. Denies any active bleeding. Received a unit of blood yesterday. Vital signs are stable. General: Awake and alert. No acute distress. HEENT: Head exam is unremarkable. LUNGS: Breath sounds decreased. HEART: Rate and Rhythm are regular. ABDOMEN: Soft, no distention. EXTREMITITES: Trace edema. No drainage noted. Objective - Vital Signs Vital signs: Vital Signs Temp 99.0 F 11/03/21 08:06 Pulse 119 H 11/03/21 08:06 Resp 18 11/03/21 08:06 BP 159/75 11/03/21 08:06 Pulse Ox 95 11/03/21 08:06 FiO2 Intake & Output 11/02/21 11/03/21 11/03/21 18:59 06:59 18:59 Intake Total 766 0 Output Total 2500 Balance -1734 0 Intake: IV 120 0.9 120 Intake, IV Titration 100 Amount Nafcillin 2 gm In 100 Dextrose 5% in Water 100 ml @ 100 mls/hr IVPB Q4HR [facility] Rx#:[id number] Oral 236 0 Blood Product 310 Rc As-1 Unit 310 [id number] Output: Hemodialysis 2500 Other: Voiding Method Urinal Urinal Diaper # Voids 0 - Labs CBC & Chem 7: 11/02/21 10:32 10/31/21 08:18 Labs: Abnormal Lab Results - Last 24 Hours (Table) 10/31/21 11/02/21 Range/Units 09:27 10:32 WBC 18.2 H (3.8-10.6) k/uL RBC 2.36 L (4.30-5.90) m/uL Hgb 6.7 L* (13.0-17.5) gm/dL Hct 21.0 L (39.0-53.0) % RDW 18.1 H (11.5-15.5) % Plt Count 757 H (150-450) k/uL Neutrophils # 15.0 H (1.3-7.7) k/uL Crossmatch See Detail Microbiology - Last 24 Hours (Table) 10/27/21 08:40 Blood Culture - Final Blood No Growth after 144 hours Assessment and Plan Plan: Assessment: 1. End-stage renal disease maintained on hemodialysis on Sunday schedule via permacath. 2. Hyponatremia secondary to chronic kidney disease. Hypervolemic. Expect improvement postdialysis. Better. 3. Anemia of chronic kidney disease. Iron replete. On Aranesp. Received blood transfusion this admission. No active bleeding. 4. Staph aureus bacteremia. Permacath removed 10/20/2021. Had a temporary femoral catheter placed which was removed 10/25/2021. Status post incision and drainage of the left hip and ankle cultures also positive for MSSA. On antibiotics. ID following. Permacath placed a 10/29/2021. 5. Chronic kidney disease mineral bone disease. Phosphorous 5.6. On Renvela. 6. Hyperkalemia secondary to chronic kidney disease. Improved postdialysis. 7. Sinus tachycardia. On metoprolol. Cardiology following. Plan: Hemodialysis tomorrow. Maintain torsemide. DEVEN today. I will give him a dose of DDAVP today. Check CBC and BMP today.
[2021-11-03] MEDS ORDERED: MIDAZOLAM 2 MG/2 ML VIAL IV ONE ×2 (10:14→10:16)
[2021-11-03] MEDS: fentaNYL (PF) 50 MCG/ML 2 ML AMP IV ONE ×2 (10:14→10:17)
[2021-11-03] MEDS ORDERED: IV FLUID CONTINUATION 1,000 ML IV ONE (10:21)
[2021-11-03 10:25] LABS: Anisocytosis Slight; Basophils # (A) 0.1 k/uL (0-0.2); Basophils % (A) 1 %; Eosinophils # (A) 0.3 k/uL (0-0.7); Eosinophils % (A) 1 %; HCT 23.5 % (39.0-53.0); HGB 7.1 gm/dL (13.0-17.5); Hypochromasia Moderate; Lymphocytes # (A) 1.3 k/uL (1.0-4.8); Lymphocytes % (A) 7 %; MCH 27.5 pg (25.0-35.0); MCHC 30.3 g/dL (31.0-37.0); MCV 90.8 fL (80.0-100.0); Mean Platelet Volume 7.4; Monocytes # (A) 0.9 k/uL (0-1.0); Monocytes % (A) 5 %; Neutrophils # (A) 15.8 k/uL (1.3-7.7); Neutrophils % (A) 85 %; Platelet Count 752 k/uL (150-450); RBC 2.59 m/uL (4.30-5.90); RDW 17.8 % (11.5-15.5); WBC 18.7 k/uL (3.8-10.6)
--- NOTE | 2021-11-03 10:54 | P.TEE ---
Description of Procedure(s): Procedure performed: Transesophageal Echocardiogram with color flow doppler, pulsed wave doppler and continuous wave doppler, moderate conscious sedation Moderate conscious sedation: Moderate conscious sedation was supplied with direct supervision of myself using Versed and Fentanyl. Complications: none Indications: Persistent bacteremia, rule out endocarditis PROCEDURE: After the risks, benefits and alternatives of the above mentioned procedure was explained in detail with the patient, informed consent was obtained. Patient was brought to the lab in a fasting state. Patient was given IV Versed and Fentanyl for sedation. The throat was sprayed with Hurricane to anesthetize the throat. A lubricated Omni probe was then introduced into the esophagus and stomach and multiple views were obtained. 2D echo with color flow doppler, pulsed wave doppler and continuous wave doppler was utilized. Agitated saline bubbles were injected to assess for any intra-atrial shunt. The probe was then removed. Patient tolerated the procedure well. Patient was transferred to the post procedure area in stable and satisfactory condition. FINDINGS: 1. The aortic valve is tricuspid and functioning normally. 2. The mitral valve appears be normal with trace mitral regurgitation. 3. Tricuspid valve appears to be normal. 4. The interatrial septum is intact. No evidence of PFO. 5. Left atrial appendage is free of clot. 6. Left ventricular size and function is normal with left ventricular ejecti on fraction 65% 7. There is a mobile echodensity approximately 1 cm x 0.5 cm attached to the catheter seen in the right atrium consistent with a vegetation. There does not appear to be any attachment to the right atrium itself.
[2021-11-03] MEDS: ENOXAPARIN 30 MG/0.3 ML SYRINGE SQ SCH (11:29)
[2021-11-03] MEDS: METOPROLOL TARTRATE 25 MG TAB PO SCH ×2 (11:30→21:11)
[2021-11-03] MEDS: MULTIVITAMINS, THERA 1 EACH TAB PO SCH (11:30)
[2021-11-03] MEDS: TORSEMIDE 20 MG TAB PO SCH (11:31)
[2021-11-03 12:19] LABS: Calcium 8.7 mg/dL (8.4-10.2); Potassium 4.7 mmol/L (3.5-5.1)
--- NOTE | 2021-11-03 12:33 | P.PN ---
Progress Note - Text Progress Note Date: 11/03/21 Chief Complaint: Not feeling well This is a 26-year-old patient, follows with Dr. Travis moore. Chronic stable medical conditions include end-stage kidney disease on hemodialysis Sunday and Sunday, essential hypertension, secondary hyperparathyroidism. Patient came in because of not feeling well. Unsteady weak diet and rundown. Unsure about fever. Blood drawn at the nephrology dialysis center was positive for gram-positive cocci. IV vancomycin was given. Patient is slightly delirious. Consultation nephrology denies D was done. Appetite fair denies any respiratory or urinary symptoms. Admitted with sepsis with positive blood culture from the dialysis center, delirium. IV vancomycin started. October 20: Tired. Decreased oral intake. Dialysis catheter to be taken out today. Patient received dialysis yesterday. Discussed with patient. Tired. Repeat blood cultures from yesterday growing staph aureus. October 21: Less delirious today. Dialysis catheter has been removed yesterday. Blood cultures from here growing staph aureus. Patient not hungry. Did not eat his breakfast. Tired. Patient complaining of pain around the left hip area. I ordered Doppler ultrasound that came back to be negative. Hip x-ray was also ordered and came back to be unremarkable. Orthopedics consulted. 10/23/2021 Patient is seen and evaluated in room at bedside; patient complains of generalized pain more so in Lasix; no complaint of chest pain or shortness of breath Vital signs are reviewed; blood pressure 169/98, pulse 111 Lab review shows a sodium of 123 which is down from 126 yesterday, potassium 5.9, bicarbonate 18, BUN/creatinine of 142/13.1 Repeat blood cultures drawn yesterday are reported positive; plan was to reinsert permacath if blood cultures were negative; nephrology recommending to proceed with placement of Angel catheter and dialyze the patient today and tomorrow due to worsening hyponatremia with plans to remove catheter after dialysis; patient will have a permacath placement once her cultures turn negative with possibility of paratonia dialysis in the meantime 10/24/2021 Patient is seen in follow-up this morning currently receiving hemodialysis. Multiple medical consultations including nephrology and infectious disease following. Blood cultures and catheter tip culture showing staph aureus and awaiting for bacteremia clearance. Patient will also need replacement dialysis catheter once cleared by infectious disease. Patient is currently maintained on 1500 mL fluid restrictions and will slightly increase as patient reports he is thirsty and not getting enough intake. Patient is currently afebrile and denies any chest pain or palpitations. 10/25/2021 Patient is seen in follow-up this morning and hemoglobin was found to be 6.8 and will transfuse 1 unit of PRBC. Patient is scheduled to undergo incision and drainage with possible debridement of the left hip and left lower extremity with orthopedics today. Patient also to have dialysis catheter removed by vascular surgery. Patient continues on fluid restrictions and is currently nothing by mouth for the procedure and diuretics being held. No plans for hemodialysis today. Patient is maintained on Sunday/Sunday/Sunday schedule and will gabby nue with nephrology following closely. Patient is also maintained on IV antibiotics with infectious disease following closely and will continue. Multiple culture showing MSSA and hopeful for cultures during surgery today. She is currently afebrile and denies chest pain or shortness of breath. Patient reports left leg pain. 10/26/2021 Patient is seen in follow-up today status post incision and drainage of the left lower extremity and left hip with orthopedics in currently maintained on IV antibiotics in the form of cefazolin with anxiety following closely. Patient being transitioned to nafcillin while awaiting for finalized cultures of the deep tissue cultures that were obtained during surgery. Patient had dialysis catheter removed and waiting prior to insertion of new catheter. 2-D echo was also ordered to assess for any vegetation. Patient continues with fevers and denies any chest pain or shortness of breath. Hemoglobin was 7.1 today after 1 unit of PRBCs yesterday. WBC trending up at 15.4 and BNP is noted with a creatinine of 8.08. Recommend close monitoring of vital signs and temperature control and continue to await for cultures. Patient reports his pain is curre ntly manageable and denies any chest pain or shortness of breath. 10/27/2021 Patient is seen today and continues on IV abx with multiple medical consultations following and blood cultures have been positive and awaiting repeat blood cultures for clearance of bacteremia. ID following closely and patient also remains without a dialysis catheter at this time. Patient continues with fevers as well and is status post I&D and debridement with ortho post op day 2. Patient hemoglobin is 6.9 and ordered a unit of prbc. Will hold for now and repeat am labs as patient has also not had dialysis for the last 2 days. Creatinine is 8 and nephrology following closely. Patient is extremely weak and will consult PT/OT. Patient denies chest pain or shortness of breath. 10/28/2021 Patient evaluated today continues to have positive blood cultures and awaiting repeat blood cultures that were drawn yesterday to monitor for clearance of bacteremia. Most recent have been negative for 24 hours and will await for 72 hour clearance prior to dialysis catheter placement. Patient continues with low-grade temps of 99 this morning. Patient also maintained on nafcillin with infectious disease following. Asians potassium critically elevated at 6.1 and hemoglobin remained 6.9. WBC is elevated as well at 22 and sodium is found to be 125 with a creatinine of 11.48. Nephrology following closely and may likely need a dialysis catheter temporary for hemodialysis. Ortho following and surgical drains removed of the left lower extremity. PT consulted. 10/29/2021 Patient is seen today and afebrile and maintained on IV antibiotics with ID following. Vascular surgery to place right chest wall dialysis catheter as patient needs emergent dialysis as he has continued elevated potassium and creatinine is above 11. Patient continues with weakness and will continue with PT and advance activity as tolerated. Patient received 1 unit of blood with hemoglobin 7.7. No reports of chest pain or shortness of breath. Encouraged oral intake. Patient was seen and covered by [facility] hospitalist from October 22 through October 29 10/30/2021: Patient getting hemodialysis today. Decreased appetite. On IV nafcillin. No pain. Laying in bed. Patient in the last few days however I&D of septic arthritis including left hip left knee and left ankle. All cultures growing MSSA. 10/31/2021: Two-level good breakfast. Not hungry for lunch. On IV nafcillin. And wish to be out of bed. Patient to be changed over to Ancef at dialysis upon discharge. Hemoglobin 6.9. 1 unit of PRBC ordered. 11/01/2021: On IV nafcillin. Tachycardia. Cardiology consulted. Discussed with the patient. We will try Marinol. 11/02/2021: Remains tachycardic. Spiked a fever to 101 earlier. Discussed with ID. DEVEN ordered with cardiology. Patient started on Marinol yesterday. Feels tired. Hemoglobin 6.7. 1 unit of blood ordered. Hemodialysis today. 11/03/2021: Patient underwent DEVEN E by Dr. Moore today. 1 cm x 0.5 cm of vegetation noted on the catheter tip. Discussed with him, Dr. Mari from nephrology and Dr. Sevilla from ID. It was decided to remove the catheter after dialysis today. Patient never temporary dialysis catheter placed. Discussed with the patient. Active Medications Acetaminophen (Acetaminophen Tab 325 Mg Tab) 650 mg PO Q4HR PRN PRN Reason: Fever and/ or Pain Last Admin: 11/02/21 18:48 Dose: 650 mg Hydrocodone Bitart/Acetaminophen (Hydrocodone/Apap 5-325mg 1 Each Tab) 1 each PO Q6HR PRN PRN Reason: Pain Last Admin: 11/02/21 19:48 Dose: 1 each Darbepoetin Luis E (Darbepoetin Luis E 40 Mcg/0.4 Ml Syringe) 40 mcg SQ Q7D [facility] Last Admin: 11/02/21 13:26 Dose: 40 mcg Dronabinol (Dronabinol 2.5 Mg Cap) 5 mg PO AC-BID [facility] Last Admin: 11/03/21 06:40 Dose: Not Given Enoxaparin Sodium (Enoxaparin 30 Mg/0.3 Ml Syringe) 30 mg SQ DAILY [facility] Last Admin: 11/03/21 11:29 Dose: 30 mg Nafcillin Sodium 2 gm/ (Dextrose/Water) 100 mls @ 100 mls/hr IVPB Q4HR [facility]; Protocol Last Admin: 11/03/21 08:17 Dose: 100 mls/hr Lorazepam (Lorazepam 0.5 Mg Tab) 0.5 mg PO Q6HR PRN PRN Reason: Anxiety Last Admin: 11/01/21 23:32 Dose: 0.5 mg Metoprolol Tartrate (Metoprolol Tartrate 25 Mg Tab) 25 mg PO BID [facility] Last Admin: 11/03/21 11:30 Dose: 25 mg Morphine Sulfate (Morphine Sulfate 4 Mg/Ml Syringe) 4 mg IVP Q4HR PRN PRN Reason: Pain Last Admin: 11/02/21 21:08 Dose: 4 mg Multivitamins (Multivitamins, Thera 1 Each Tab) 1 each PO DAILY [facility] Last Admin: 11/03/21 11:30 Dose: 1 each Naloxone HCl (Naloxone 0.4 Mg/Ml 1 Ml Vial) 0.2 mg IV Q2M PRN PRN Reason: Opioid Reversal Sevelamer Carbonate (Sevelamer 800 Mg Tab) 1,600 mg PO TID-W/MEALS [facility] Last Admin: 11/03/21 11:29 Dose: 1,600 mg Thiamine HCl (Thiamine 100 Mg Tab) 100 mg PO BID-W/MEALS [facility] Last Admin: 11/03/21 11:29 Dose: Not Given Torsemide (Torsemide 20 Mg Tab) 80 mg PO DAILY [facility] Last Admin: 11/03/21 11:31 Dose: 80 mg Past medical history to include: End-stage kidney disease on hemodialysis, anemia of CK D, minimal bone disease Social history: Lives with his mother. Smokes about 5 bowls of marijuana daily. No alcohol or cigarette smoking. Family history: Diabetes, COPD, A. fib, CHF Physical examination: VITAL SIGNS: T-max 101, 119, 18, 157 with 69, 95% on 2 L GENERAL: Laying in bed, Right jugular dialysis catheter. EYES: Pupils equal. Conjunctiva normal. HEENT: External appearance of nose and ears normal, oral cavity grossly normal. NECK: JVD not raised; masses not palpable. HEART: First and second heart sounds are normal; no edema. LUNGS: Respiratory rate normal; clear to auscultation. ABDOMEN: Soft, nontender, liver spleen not palpable, no masses palpable. PSYCH: Answering questions appropriately MUSCULOSKELETAL:No Clubbing/cyanosis;muscles-grossly intact INVESTIGATIONS, reviewed in the clinical context: November 03: WBC 18.7, hemoglobin 7.1 platelets and 5 to potassium 4.2 creatinine 7.73 DEVEN [November 03]: 1 cm x 0.5 cm vegetation on catheter tip November 02: White count 8.2 hemoglobin 6.7 platelets 757 October 31: WBC 19 hemoglobin 6.9 potassium 4.5 creatinine 8.15 October 30: White count 19.8 hemoglobin 7.1 platelet 774 sodium 126 potassium 5.4 creatinine 9.96 October 21: Sodium 127 potassium 5.4 twice a day 2 creatinine 9.1 Urine drug screen: Positive for opiates, benzodiazepine, marijuana White count 12.4 hemoglobin 9 platelets 170 sodium 126 potassium 5.3 rate 80 creatinine 10.9 phosphorus 5.6 and magnesium 2.8 bilirubin 1.8 EKG tracing personally reviewed by me-sinus tachycardia rate of 1:30. Right bundle branch block pattern. Nonspecific ST segment changes. Assessment and plan: -Sepsis with blood cultures positive for MSSA. done at the dialysis center and from October 19.: Slow to respond IV nafcillin Dialysis catheter removed October 20. Blood culture negative on October 27. DEVEN on November 03 showing vegetation on catheter. -Polyarticular septic arthritis including the left hip, left knee, left ankle with I&D of all the joints. IV nafcillin -Acute delirium from sepsis: Improved Treat underlying infection -End-stage kidney disease on hemodialysis Sunday and Sunday On dialysis schedule -Anemia of chronic kidney disease, dropped hemoglobin to 6.7. Follow H&H. Patient received 3 units blood. -Acute hemolysis from sepsis causing drop in hemoglobin -mineral bone disease/CK D Supplements -Hyperphosphatemia secondary to CK D Renvela -Hypervolemic hyponatremia: Slow to respond Encourage oral intake. Fluid to be taken off at dialysis. -Anorexia multifactorial Start Marinol 5 mg twice a day -Sinus tachycardia likely combination of deconditioning and infection IV nafcillin. 4 removal of dialysis catheter. Discussed with cardiology, nephrology, ID. Discussed with the patient. Total time spent about 45 minutes with over 30 was of discussion.
[2021-11-03] MEDS ORDERED: LIDOCAINE 1% INJ 10MG/ML (20 ML MDV) SQ ONE (15:15)
[2021-11-03] MEDS: MORPHINE SULFATE 4 MG/ML SYRINGE IVP PRN (15:30)
--- NOTE | 2021-11-03 20:12 | OP ---
OPERATIVE REPORT PREOPERATIVE DIAGNOSIS: Acute and chronic renal failure. PROCEDURE: Removal of dialysis catheter, right jugular approach. This patient had a right IJ catheter placed. The patient had a DEVEN done today. There is vegetation noted around the catheter. PROCEDURE DESCRIPTION: The right side of the patient's chest and neck was prepped and drapes were applied in a sterile manner. Lidocaine 1% was infiltrated. A small incision and catheter was removed; closed with 3-0 nylon. Dressing was applied. Patient tolerated the procedure well. MMCATHERINEL / JEAN-CLAUDEN: [id number] /
[2021-11-03] MEDS: LORazepam 0.5 MG TAB PO PRN (23:04)
[2021-11-03] MEDS: ACETAMINOPHEN TAB 325 MG TAB PO PRN (23:04)
[2021-11-04] MEDS: NAFCILLIN 2 GM in DEXTROSE 5% IN WATER 100 ML IVPB SCH ×10 (03:47→21:00)
[2021-11-04] MEDS: SEVELAMER 800 MG TAB PO SCH ×3 (06:27→18:02)
--- NOTE | 2021-11-04 07:06 | P.PN ---
Subjective Progress Note Date: 11/03/21 Principal diagnosis: Bacteremia Patient is a 26 year old male with a past medical history significant for end-stage renal disease on hemodialysis presented to hospital with sepsis and bacteremia secondary to dialysis catheter infection which was removed the evening of 10/20/2021. Patient is status post I and D of the left knee and hip and ankle area completed 10/25/2021, patient is status post new permacatheter placement on 10/29/2021 as a blood culture from 10/26/2021 were negative, the patient is status post DEVEN completed this morning with no evidence of endoca rditis however did show mobile mass attached to the dialysis catheter On today's evaluation that is 11/03/2021, the patient fever pattern has improved with temperature of 99F , the patient denies chest pain shortness of breath or cough , the patient denies abdominal pain and no diarrhea, patient denies pain to the left knee or ankle area is currently controlled and no new symptoms Objective - Vital Signs Vital signs: Vital Signs Temp 99.0 F 11/03/21 08:06 Pulse 119 H 11/03/21 08:06 Resp 18 11/03/21 08:06 BP 159/75 11/03/21 08:06 Pulse Ox 95 11/03/21 08:06 FiO2 Intake & Output 11/02/21 11/03/21 11/03/21 18:59 06:59 18:59 Intake Total 766 0 Output Total 2500 Balance -1734 0 Intake: IV 120 0.9 120 Intake, IV Titration 100 Amount Nafcillin 2 gm In 100 Dextrose 5% in Water 100 ml @ 100 mls/hr IVPB Q4HR [facility] Rx#:[id number] Oral 236 0 Blood Product 310 Rc As-1 Unit 310 [id number] Output: Hemodialysis 2500 Other: Voiding Method Urinal Urinal Diaper # Voids 0 - Exam GENERAL DESCRIPTION: Young male lying in bed in no distress RESPIRATORY SYSTEM: Unlabored breathing , decreased breath sounds at bases HEART: S1 S2 regular rate and rhythm , ABDOMEN: Soft , no tenderness EXTREMITIES: No edema feet - Labs CBC & Chem 7: 11/03/21 08:27 11/03/21 11:21 Labs: Abnormal Lab Results - Last 24 Hours (Table) 10/31/21 11/02/21 11/03/21 Range/Units 09:27 10:32 08:27 WBC 18.2 H (3.8-10.6) k/uL RBC 2.36 L (4.30-5.90) m/uL Hgb 6.7 L* (13.0-17.5) gm/dL Hct 21.0 L (39.0-53.0) % RDW 18.1 H (11.5-15.5) % Plt Count 757 H (150-450) k/uL Neutrophils # 15.0 H (1.3-7.7) k/uL Sodium 131 L (137-145) mmol/L Chloride 92 L (98-107) mmol/L BUN 48 H (9-20) mg/dL Creatinine 7.73 H* (0.66-1.25) mg/dL Crossmatch See Detail Microbiology - Last 24 Hours (Table) 10/27/21 08:40 Blood Culture - Final Blood No Growth after 144 hours Assessment and Plan (1) Positive blood culture Current Visit: No Status: Acute Code(s): R78.81 - BACTEREMIA SNOMED Code(s): 363687973 Plan: 1patient presented to hospital with sepsis source is likely dialysis catheter infection in this patient who did have a staphylococcal bacteremia which has been finalized as MSSA 2the patient dialysis catheter has been removed and tip has been sent for the culture which came back positive with MSSA. 3patient is status post I&D of the left hip and ankle in the area, cultures from the knee and ankle positive for MSSA 4patient did have persistent bacteremia echocardiogram did not show any vegetation 5patient blood culture 10/26/21 and 10/27/2021 are negative and patient was cleared to get his dialysis catheter which was placed on 10/29/2021 6patient with a new fever which is slightly concerning also have a drop in hemoglobin with a question of possible hematoma, underlying endovascular in fection less likely but not entirely excluded DEVEN was completed this morning and mention mobile vegetation attached to the dialysis catheter which was just placed 5 days ago and the patient was not bacteremic clinically not possible however after detailed discussion with the patient and admitting physician as well as the hand binder cutter the current catheter should be discontinued blood culture were repeated on 11/02/2021 and will be repeated today as well as tomorrow we will make sure those culture negative for at least one week before any catheter could be placed again 7- patient to continue with NaficillinAnd monitor his clinical course closely Time with Patient: Less than 30
--- NOTE | 2021-11-04 09:25 | P.PN ---
Progress Note - Text Progress Note Date: 11/04/21 Asked to evaluate the patient regarding his left upper extremity radiocephalic fistula that was previously created in February 2021. Had failure of maturation and there was discussion going forward regarding further access site, the patient was planning to go to [place] for second opinion and evaluation. He is here in the hospital due to bacteremia and has already had his catheter removed subsequently replaced. And again removed due to vegetation found on DEVEN at the catheter itself. We were asked to evaluate the left forearm fistula. It has not been functional for a significant amount of time, there was question of possible injury and infiltration early on which caused thrombosis of the fistula itself. It remains very small. I do not believe it has a potential to be accessed given its clinical exam. Continue with line holiday and tunneled catheters at this time per other vascular surgery service
--- NOTE | 2021-11-04 09:56 | P.PN ---
Subjective Patient is seen in follow-up for end-stage renal disease. He is maintained on hemodialysis on Sunday schedule. Permacath placed 10/29/2021 - removed 11/03/2021 due to concern for vegetation. Resting in bed. Denies chest pain or shortness of breath. Last hemodialysis 11/03/2021. Vital signs are stable. General: Awake and alert. No acute distress. HEENT: Head exam is unremarkable. LUNGS: Breath sounds decreased. HEART: Rate and Rhythm are regular. ABDOMEN: Soft, no distention. EXTREMITITES: No edema. Objective - Vital Signs Vital signs: Vital Signs Temp 98.1 F 11/04/21 03:48 Pulse 99 11/04/21 03:48 Resp 18 11/04/21 03:48 BP 152/89 11/04/21 03:48 Pulse Ox 97 11/04/21 03:48 FiO2 Intake & Output 11/03/21 11/04/21 11/04/21 18:59 06:59 18:59 Intake Total 100 240 540 Output Total 3500 Balance -3400 240 540 Intake: IV 100 Oral 240 540 Output: Hemodialysis 3500 Other: Voiding Method Urinal # Voids 3 1 # Bowel Movements 1 - Labs CBC & Chem 7: 11/03/21 08:27 11/03/21 11:21 Labs: Abnormal Lab Results - Last 24 Hours (Table) 11/03/21 11/03/21 11/03/21 Range/Units 08:27 08:27 11:21 WBC 18.7 H (3.8-10.6) k/uL RBC 2.59 L (4.30-5.90) m/uL Hgb 7.1 L (13.0-17.5) gm/dL Hct 23.5 L (39.0-53.0) % MCHC 30.3 L (31.0-37.0) g/dL RDW 17.8 H (11.5-15.5) % Plt Count 752 H (150-450) k/uL Neutrophils # 15.8 H (1.3-7.7) k/uL Sodium 131 L 132 L (137-145) mmol/L Chloride 92 L 91 L (98-107) mmol/L BUN 48 H 50 H (9-20) mg/dL Creatinine 7.73 H* 7.98 H* (0.66-1.25) mg/dL Microbiology - Last 24 Hours (Table) 11/03/21 15:47 Catheter Tip Culture - Preliminary Catheter Tip 11/02/21 16:25 Blood Culture - Preliminary Blood No Growth after 24 hours 10/24/21 17:46 Gram Stain - Preliminary Knee - Left Body Fluid Culture - Preliminary Assessment and Plan Plan: Assessment: 1. End-stage renal disease maintained on hemodialysis on Sunday schedule via permacath. 2. Hyponatremia secondary to chronic kidney disease. Hypervolemic. Expect improvement postdialysis. Better. 3. Anemia of chronic kidney disease. Iron replete. On Aranesp. Received blood transfusion this admission. No active bleeding. Also received DDAVP this admission. 4. Staph aureus bacteremia. Permacath removed 10/20/2021. Had a temporary femoral catheter placed which was removed 10/25/2021. Status post incision and drainage of the left hip and ankle cultures also positive for MSSA. On antibiotics. ID following. Permacath placed a 10/29/2021 - removed 11/03/2021 due to concern for vegetation on DEVEN. 5. Chronic kidney disease mineral bone disease. Phosphorous 5.6. On Renvela. 6. Hyperkalemia secondary to chronic kidney disease. Improved postdialysis. 7. Sinus tachycardia. On metoprolol. Cardiology following. Plan: Last hemodialysis 11/03/2021. Maintain torsemide. Discussed case with primary team, cardiology and infectious disease. Continue to check labs daily and assess need for renal replacement therapy. Potential permacath versus femoral catheter in the next 2-3 days. Follow-up cultures.
[2021-11-04] MEDS: METOPROLOL TARTRATE 25 MG TAB PO SCH ×2 (10:10→20:59)
[2021-11-04] MEDS: ENOXAPARIN 30 MG/0.3 ML SYRINGE SQ SCH (10:10)
[2021-11-04] MEDS: MULTIVITAMINS, THERA 1 EACH TAB PO SCH (10:10)
[2021-11-04] MEDS: TORSEMIDE 20 MG TAB PO SCH (10:10)
[2021-11-04] MEDS: ACETAMINOPHEN TAB 325 MG TAB PO PRN ×2 (12:21→19:50)
--- NOTE | 2021-11-04 13:16 | P.PN ---
Subjective This is a pleasant 26-year-old male past medical history significant for end- stage renal disease on hemodialysis, hypertension, hyperparathyroidism. Patient does not follow with a helicopter officer. We have been asked to see in consultation for tachycardia. Patient presents emergency department on 10/18/2021 with complaints of not feeling well, increased generalized weakness, low grade fevers, tachycardic, increased confusion. He was sent to the ER secondary to abnormal outpatient labs. He was found to have elevated WBC and positive blood cultures with staphylococcus aureus. He has been evaluated by Infectious Disease, Nephrology, and Vascular. Orthopedics was consulted for back, leg and left hip pain. Patient underwent I&D of the left hip, left knee and left ankle with presumed septic arthritis on 10/21/2021. Cultures came back positive for M SSA. and Irrigation and debridement of the left calf for hematoma vs abscess on 10/25/21. His dialysis catheter was removed and tip was sent for culture that also came back positive for MSSA. His dialysis catheter was replaced on 10/29/2021. 11/03, patient underwent DEVEN with Dr. Moore which revealed mobile echodensity approximately 1 cm x 0.5 cm attached to the catheter seen in the right atrium co nsistent with a vegetation. There did not appear to be any attachment to the right atrium. The aortic valve is tricuspid and functioning normally. The mitral valve appears be normal with trace mitral regurgitation. Tricuspid valve appears to be normal. The interatrial septum is intact. No evidence of PFO Left atrial appendage is free of clot. Left ventricular size and function is normal with left ventricular ejection fraction 65% 11/04/2021 Patient seen and examined at bedside, no acute distress. He denies any chest pain or shortness of breath. Vital signs are stable. Heart rate improved. PHYSICAL EXAMINATION Vitals reviewed CONSTITUTIONAL: No apparent distress. HEENT: Neck Supple. No JVD. CHEST EXAMINATION: Lungs are clear to auscultation. No chest wall tenderness is noted on palpation or with deep breathing. HEART EXAMINATION: Regular rate and rhythm. S1, S2 heard. No murmurs, gallops or rub. ABDOMEN: Soft, nontender. Positive bowel sounds. EXTREMITIES: mild swelling in the left lower extremity and no calf tenderness. NEUROLOGIC EXAMINATION: Patient is awake, alert and oriented x3. ASSESSMENT Sinus tachycardia, related to sepsis no evidence of arrhythmia Staph aureus bacteremia Sepsis, blood cultures positive for MSSA, Dialysis catheter positive MSSA Septic arthritis s/p I&D of left hip, left knee, left ankle on 10/21/2021 cultures also positive for MSSA Status post Irrigation and debridement of the left calf for hematoma vs abscess on 10/25/21 End-stage kidney disease on hemodialysis Anemia Hyponatremia Hyperkalemia Status post DEVEN on 11/03/2021 that revealed mobile echodensity approximately 1 cm x 0.5 cm attached to the catheter, no evidence of attachement to the right atrium PLAN Continue metoprolol 25mg BID Antibiotics per infectious disease Increase activity as tolerated Further changes from a cardiology perspective. We will follow the patient as needed. Please reconsult if needed. Nurse practitioner note has been reviewed by physician. Signing provider agrees with the documented findings, assessment, and plan of care. Objective - Vital Signs Vital signs: Vital Signs Temp 99.4 F 11/04/21 12:00 Pulse 114 H 11/04/21 12:00 Resp 18 11/04/21 12:00 BP 159/70 11/04/21 12:00 Pulse Ox 97 11/04/21 12:00 FiO2 Intake & Output 11/03/21 11/04/21 11/04/21 18:59 06:59 18:59 Intake Total 100 240 540 Output Total 3500 1 Balance -3400 240 539 Intake: IV 100 Oral 240 540 Output: Stool 1 Hemodialysis 3500 Other: Voiding Method Urinal Urinal # Voids 3 1 # Bowel Movements 1 - Labs CBC & Chem 7: 11/03/21 08:27 11/03/21 11:21 Labs: Microbiology - Last 24 Hours (Table) 11/03/21 08:27 Blood Culture - Preliminary Blood No Growth after 24 hours 11/03/21 15:47 Catheter Tip Culture - Preliminary Catheter Tip 11/02/21 16:25 Blood Culture - Preliminary Blood No Growth after 24 hours 10/24/21 17:46 Gram Stain - Preliminary Knee - Left Body Fluid Culture - Preliminary
[2021-11-04] MEDS: HYDROcodone/APAP 5-325MG 1 EACH TAB PO PRN (13:43)
--- NOTE | 2021-11-04 17:42 | P.PN ---
Progress Note - Text Progress Note Date: 11/04/21 Chief Complaint: Not feeling well This is a 26-year-old patient, follows with Dr. Travis moore. Chronic stable medical conditions include end-stage kidney disease on hemodialysis Sunday and Sunday, essential hypertension, secondary hyperparathyroidism. Patient came in because of not feeling well. Unsteady weak diet and rundown. Unsure about fever. Blood drawn at the nephrology dialysis center was positive for gram-positive cocci. IV vancomycin was given. Patient is slightly delirious. Consultation nephrology denies D was done. Appetite fair denies any respiratory or urinary symptoms. Admitted with sepsis with positive blood culture from the dialysis center, delirium. IV vancomycin started. October 20: Tired. Decreased oral intake. Dialysis catheter to be taken out today. Patient received dialysis yesterday. Discussed with patient. Tired. Repeat blood cultures from yesterday growing staph aureus. October 21: Less delirious today. Dialysis catheter has been removed yesterday. Blood cultures from here growing staph aureus. Patient not hungry. Did not eat his breakfast. Tired. Patient complaining of pain around the left hip area. I ordered Doppler ultrasound that came back to be negative. Hip x-ray was also ordered and came back to be unremarkable. Orthopedics consulted. 10/23/2021 Patient is seen and evaluated in room at bedside; patient complains of generalized pain more so in Lasix; no complaint of chest pain or shortness of breath Vital signs are reviewed; blood pressure 169/98, pulse 111 Lab review shows a sodium of 123 which is down from 126 yesterday, potassium 5.9, bicarbonate 18, BUN/creatinine of 142/13.1 Repeat blood cultures drawn yesterday are reported positive; plan was to reinsert permacath if blood cultures were negative; nephrology recommending to proceed with placement of Angel catheter and dialyze the patient today and tomorrow due to worsening hyponatremia with plans to remove catheter after dialysis; patient will have a permacath placement once her cultures turn negative with possibility of paratonia dialysis in the meantime 10/24/2021 Patient is seen in follow-up this morning currently receiving hemodialysis. Multiple medical consultations including nephrology and infectious disease following. Blood cultures and catheter tip culture showing staph aureus and awaiting for bacteremia clearance. Patient will also need replacement dialysis catheter once cleared by infectious disease. Patient is currently maintained on 1500 mL fluid restrictions and will slightly increase as patient reports he is thirsty and not getting enough intake. Patient is currently afebrile and denies any chest pain or palpitations. 10/25/2021 Patient is seen in follow-up this morning and hemoglobin was found to be 6.8 and will transfuse 1 unit of PRBC. Patient is scheduled to undergo incision and drainage with possible debridement of the left hip and left lower extremity with orthopedics today. Patient also to have dialysis catheter removed by vascular surgery. Patient continues on fluid restrictions and is currently nothing by mouth for the procedure and diuretics being held. No plans for hemodialysis today. Patient is maintained on Sunday/Sunday/Sunday schedule and will gabby nue with nephrology following closely. Patient is also maintained on IV antibiotics with infectious disease following closely and will continue. Multiple culture showing MSSA and hopeful for cultures during surgery today. She is currently afebrile and denies chest pain or shortness of breath. Patient reports left leg pain. 10/26/2021 Patient is seen in follow-up today status post incision and drainage of the left lower extremity and left hip with orthopedics in currently maintained on IV antibiotics in the form of cefazolin with anxiety following closely. Patient being transitioned to nafcillin while awaiting for finalized cultures of the deep tissue cultures that were obtained during surgery. Patient had dialysis catheter removed and waiting prior to insertion of new catheter. 2-D echo was also ordered to assess for any vegetation. Patient continues with fevers and denies any chest pain or shortness of breath. Hemoglobin was 7.1 today after 1 unit of PRBCs yesterday. WBC trending up at 15.4 and BNP is noted with a creatinine of 8.08. Recommend close monitoring of vital signs and temperature control and continue to await for cultures. Patient reports his pain is curre ntly manageable and denies any chest pain or shortness of breath. 10/27/2021 Patient is seen today and continues on IV abx with multiple medical consultations following and blood cultures have been positive and awaiting repeat blood cultures for clearance of bacteremia. ID following closely and patient also remains without a dialysis catheter at this time. Patient continues with fevers as well and is status post I&D and debridement with ortho post op day 2. Patient hemoglobin is 6.9 and ordered a unit of prbc. Will hold for now and repeat am labs as patient has also not had dialysis for the last 2 days. Creatinine is 8 and nephrology following closely. Patient is extremely weak and will consult PT/OT. Patient denies chest pain or shortness of breath. 10/28/2021 Patient evaluated today continues to have positive blood cultures and awaiting repeat blood cultures that were drawn yesterday to monitor for clearance of bacteremia. Most recent have been negative for 24 hours and will await for 72 hour clearance prior to dialysis catheter placement. Patient continues with low-grade temps of 99 this morning. Patient also maintained on nafcillin with infectious disease following. Asians potassium critically elevated at 6.1 and hemoglobin remained 6.9. WBC is elevated as well at 22 and sodium is found to be 125 with a creatinine of 11.48. Nephrology following closely and may likely need a dialysis catheter temporary for hemodialysis. Ortho following and surgical drains removed of the left lower extremity. PT consulted. 10/29/2021 Patient is seen today and afebrile and maintained on IV antibiotics with ID following. Vascular surgery to place right chest wall dialysis catheter as patient needs emergent dialysis as he has continued elevated potassium and creatinine is above 11. Patient continues with weakness and will continue with PT and advance activity as tolerated. Patient received 1 unit of blood with hemoglobin 7.7. No reports of chest pain or shortness of breath. Encouraged oral intake. Patient was seen and covered by [facility] hospitalist from October 22 through October 29 10/30/2021: Patient getting hemodialysis today. Decreased appetite. On IV nafcillin. No pain. Laying in bed. Patient in the last few days however I&D of septic arthritis including left hip left knee and left ankle. All cultures growing MSSA. 10/31/2021: Two-level good breakfast. Not hungry for lunch. On IV nafcillin. And wish to be out of bed. Patient to be changed over to Ancef at dialysis upon discharge. Hemoglobin 6.9. 1 unit of PRBC ordered. 11/01/2021: On IV nafcillin. Tachycardia. Cardiology consulted. Discussed with the patient. We will try Marinol. 11/02/2021: Remains tachycardic. Spiked a fever to 101 earlier. Discussed with ID. DEVEN ordered with cardiology. Patient started on Marinol yesterday. Feels tired. Hemoglobin 6.7. 1 unit of blood ordered. Hemodialysis today. 11/03/2021: Patient underwent DEVEN E by Dr. Moore today. 1 cm x 0.5 cm of vegetation noted on the catheter tip. Discussed with him, Dr. Mari from nephrology and Dr. Sevilla from ID. It was decided to remove the catheter after dialysis today. Patient never temporary dialysis catheter placed. Discussed with the patient. 11/04/2021: Right jugular dialysis catheter was removed by Dr. Christy yesterday. Patient has a left upper extremity radiocephalic fistula from [facility] 2020. Failure to mature. Patient somewhat disappointed because of his lengthy stay in the hospital. Discussed at length with him and his friend at the bedside. He does understand. But feels frustrated. Active Medications Acetaminophen (Acetaminophen Tab 325 Mg Tab) 650 mg PO Q4HR PRN PRN Reason: Fever and/ or Pain Last Admin: 11/04/21 12:21 Dose: 650 mg Hydrocodone Bitart/Acetaminophen (Hydrocodone/Apap 5-325mg 1 Each Tab) 1 each PO Q6HR PRN PRN Reason: Pain Last Admin: 11/04/21 13:43 Dose: 1 each Darbepoetin Luis E (Darbepoetin Luis E 40 Mcg/0.4 Ml Syringe) 40 mcg SQ Q7D [facility] Last Admin: 11/02/21 13:26 Dose: 40 mcg Dronabinol (Dronabinol 2.5 Mg Cap) 5 mg PO AC-BID [facility] Last Admin: 11/04/21 06:27 Dose: 5 mg Enoxaparin Sodium (Enoxaparin 30 Mg/0.3 Ml Syringe) 30 mg SQ DAILY [facility] Last Admin: 11/04/21 10:10 Dose: 30 mg Nafcillin Sodium 2 gm/ (Dextrose/Water) 100 mls @ 100 mls/hr IVPB Q4HR [facility]; Protocol Last Admin: 11/04/21 12:22 Dose: 100 mls/hr Lorazepam (Lorazepam 0.5 Mg Tab) 0.5 mg PO Q6HR PRN PRN Reason: Anxiety Last Admin: 11/03/21 23:04 Dose: 0.5 mg Metoprolol Tartrate (Metoprolol Tartrate 25 Mg Tab) 25 mg PO BID [facility] Last Admin: 11/04/21 10:10 Dose: 25 mg Multivitamins (Multivitamins, Thera 1 Each Tab) 1 each PO DAILY [facility] Last Admin: 11/04/21 10:10 Dose: 1 each Naloxone HCl (Naloxone 0.4 Mg/Ml 1 Ml Vial) 0.2 mg IV Q2M PRN PRN Reason: Opioid Reversal Sevelamer Carbonate (Sevelamer 800 Mg Tab) 1,600 mg PO TID-W/MEALS [facility] Last Admin: 11/04/21 12:16 Dose: 1,600 mg Thiamine HCl (Thiamine 100 Mg Tab) 100 mg PO BID-W/MEALS [facility] Last Admin: 11/03/21 17:12 Dose: 100 mg Torsemide (Torsemide 20 Mg Tab) 80 mg PO DAILY [facility] Last Admin: 11/04/21 10:10 Dose: 80 mg Past medical history to include: End-stage kidney disease on hemodialysis, anemia of CK D, minimal bone disease Social history: Lives with his mother. Smokes about 5 bowls of marijuana daily. No alcohol or cigarette smoking. Family history: Diabetes, COPD, A. fib, CHF Physical examination: VITAL SIGNS: 99.4, 114, 18, 1 59 x 70, 97% room air GENERAL: Sitting at the edge of the bed, EYES: Pupils equal. Conjunctiva normal. HEENT: External appearance of nose and ears normal, oral cavity grossly normal. NECK: JVD not raised; masses not palpable. HEART: First and second heart sounds are normal; no edema. LUNGS: Respiratory rate normal; clear to auscultation. ABDOMEN: Soft, nontender, liver spleen not palpable, no masses palpable. PSYCH: AO 3, more affect a bit irritated MUSCULOSKELETAL:No Clubbing/cyanosis;muscles-grossly intact INVESTIGATIONS, reviewed in the clinical context: November 03: WBC 18.7, hemoglobin 7.1 platelets and 5 to potassium 4.2 creatinine 7.73 DEVEN [November 03]: 1 cm x 0.5 cm vegetation on catheter tip November 02: White count 8.2 hemoglobin 6.7 platelets 757 October 31: WBC 19 hemoglobin 6.9 potassium 4.5 creatinine 8.15 October 30: White count 19.8 hemoglobin 7.1 platelet 774 sodium 126 potassium 5.4 creatinine 9.96 October 21: Sodium 127 potassium 5.4 twice a day 2 creatinine 9.1 Urine drug screen: Positive for opiates, benzodiazepine, marijuana White count 12.4 hemoglobin 9 platelets 170 sodium 126 potassium 5.3 rate 80 creatinine 10.9 phosphorus 5.6 and magnesium 2.8 bilirubin 1.8 EKG tracing personally reviewed by me-sinus tachycardia rate of 1:30. Right bundle branch block pattern. Nonspecific ST segment changes. Assessment and plan: -Sepsis with blood cultures positive for MSSA. done at the dialysis center and from October 19.: Slow to respond IV nafcillin Dialysis catheter removed October 20. Blood culture negative on October 27. DEVEN on November 03 showing vegetation on catheter. Right internal jugular Dialysis catheter removed November 03. -Polyarticular septic arthritis including the left hip, left knee, left ankle with I&D of all the joints. IV nafcillin -Acute delirium from sepsis: Improved Treat underlying infection -End-stage kidney disease on hemodialysis Sunday and Sunday On dialysis schedule -Anemia of chronic kidney disease, dropped hemoglobin to 6.7. Follow H&H. Patient received 3 units blood. -Acute hemolysis from sepsis causing drop in hemoglobin -mineral bone disease/CK D Supplements -Hyperphosphatemia secondary to CK D Renvela -Hypervolemic hyponatremia: Slow to respond Encourage oral intake. Fluid to be taken off at dialysis. -Anorexia multifactorial Marinol 5 mg twice a day -Sinus tachycardia likely combination of deconditioning and infection Continue current treatment plan. Discussed with patient. IV nafcillin. Possibly repeat dialysis over the weekend. Repeat blood cultures from November 02 negative.
[2021-11-04] MEDS: THIAMINE 100 MG TAB PO SCH (18:02)
[2021-11-04] MEDS: LORazepam 0.5 MG TAB PO PRN (21:03)
[2021-11-05] MEDS: NAFCILLIN 2 GM in DEXTROSE 5% IN WATER 100 ML IVPB SCH ×12 (02:16→22:49)
[2021-11-05] MEDS: LORazepam 0.5 MG TAB PO PRN ×2 (03:16→21:50)
[2021-11-05] MEDS: SEVELAMER 800 MG TAB PO SCH ×3 (06:24→18:04)
[2021-11-05] MEDS: THIAMINE 100 MG TAB PO SCH ×2 (06:24→18:04)
--- NOTE | 2021-11-05 06:41 | P.PN ---
Subjective Progress Note Date: 11/04/21 Principal diagnosis: Bacteremia Patient is a 26 year old male with a past medical history significant for end-stage renal disease on hemodialysis presented to hospital with sepsis and bacteremia secondary to dialysis catheter infection which was removed the evening of 10/20/2021. Patient is status post I and D of the left knee and hip and ankle area completed 10/25/2021, patient is status post new permacatheter placement on 10/29/2021 as a blood culture from 10/26/2021 were negative, the patient is status post DEVEN completed this morning with no evidence of endoca rditis however did show mobile mass attached to the dialysis catheter which has been removed 11/03/2021 On today's evaluation that is 11/04/2021, the patient fever pattern has improved and the patient is afebrile this morning , the patient denies chest pain shortness of breath or cough , the patient denies abdominal pain and no diarrhea, patient has been bothering him more pain to the left knee after he did monitor the size is yesterday however no worsening pain to the ankle area Objective - Vital Signs Vital signs: Vital Signs Temp 99.4 F 11/04/21 12:00 Pulse 114 H 11/04/21 12:00 Resp 18 11/04/21 12:00 BP 159/70 11/04/21 12:00 Pulse Ox 97 11/04/21 12:00 FiO2 Intake & Output 11/03/21 11/04/21 11/04/21 18:59 06:59 18:59 Intake Total 100 240 540 Output Total 3500 1 Balance -3400 240 539 Intake: IV 100 Oral 240 540 Output: Stool 1 Hemodialysis 3500 Other: Voiding Method Urinal Urinal # Voids 3 1 # Bowel Movements 1 - Exam GENERAL DESCRIPTION: Young male lying in bed in no distress RESPIRATORY SYSTEM: Unlabored breathing , decreased breath sounds at bases HEART: S1 S2 regular rate and rhythm , ABDOMEN: Soft , no tenderness EXTREMITIES: No edema feet - Labs CBC & Chem 7: 11/03/21 08:27 11/03/21 11:21 Labs: Microbiology - Last 24 Hours (Table) 11/03/21 08:27 Blood Culture - Preliminary Blood No Growth after 24 hours 11/03/21 15:47 Catheter Tip Culture - Preliminary Catheter Tip 11/02/21 16:25 Blood Culture - Preliminary Blood No Growth after 24 hours 10/24/21 17:46 Gram Stain - Preliminary Knee - Left Body Fluid Culture - Preliminary Assessment and Plan (1) Positive blood culture Current Visit: No Status: Acute Code(s): R78.81 - BACTEREMIA SNOMED C ode(s): [id number] Plan: 1patient presented to hospital with sepsis source is likely dialysis catheter infection in this patient who did have a staphylococcal bacteremia which has been finalized as MSSA 2the patient dialysis catheter has been removed and tip has been sent for the culture which came back positive with MSSA. 3patient is status post I&D of the left hip and ankle in the area, cultures from the knee and ankle positive for MSSA 4patient did have persistent bacteremia echocardiogram did not show any vegetation 5patient blood culture 10/26/21 and 10/27/2021 are negative and patient was cleared to get his dialysis catheter which was placed on 10/29/2021 6patient with a new fever which is slightly concerning also have a drop in hemoglobin with a question of possible hematoma, underlying endovascular infection less likely but not entirely excluded DEVEN was completed this morning and mention mobile vegetation attached to the dialysis catheter which was just placed 5 days ago and the patient was not bacteremic clinically not possible however after detailed discussion with the patient and admitting physician as well as the supervisor finishing room the current catheter was discontinued on 11/03/2021, patient did have blood culture repeated on as well as and will be repeated today and if those culture negative by Sunday or Sunday he may get another catheter discussed with the nephrology 7- patient to continue with Naficillin and will continue monitor his clinical course closely Time with Patient: Less than 30
[2021-11-05 08:28] LABS: Anisocytosis Slight; Hypochromasia Moderate; MCHC 32.2 g/dL (31.0-37.0); Mean Platelet Volume 7.6; Platelet Count 798 k/uL (150-450); RDW 17.4 % (11.5-15.5); WBC 17.4 k/uL (3.8-10.6)
[2021-11-05 08:40] LABS: HCT 19.8 % (39.0-53.0); HGB 6.4 gm/dL (13.0-17.5)
[2021-11-05] MEDS ORDERED: diphenhydrAMINE 50 MG/ML 1 ML VIAL IVP STA (08:49)
[2021-11-05] MEDS ORDERED: DESMOPRESSIN ACETATE 22 MCG in SODIUM CHLORIDE 0.9% 50 ML IVPB ONE (09:16)
--- NOTE | 2021-11-05 09:19 | P.PN ---
Subjective Patient is seen in follow-up for end-stage renal disease. He is maintained on hemodialysis on Sunday schedule. Permacath placed 10/29/2021 - removed 11/03/2021 due to concern for vegetation. Resting in bed. Denies chest pain or shortness of breath. Last hemodialysis 11/03/2021. Hemoglobin 6.4 today. No active bleeding. Vital signs are stable. General: Awake and alert. No acute distress. HEENT: Head exam is unremarkable. LUNGS: Breath sounds decreased. HEART: Rate and Rhythm are regular. ABDOMEN: Soft, no distention. EXTREMITITES: No edema. Objective - Vital Signs Vital signs: Vital Signs Temp 99 F 11/05/21 03:49 Pulse 108 H 11/05/21 03:49 Resp 18 11/05/21 03:49 BP 144/83 11/05/21 03:49 Pulse Ox 97 11/05/21 03:49 FiO2 Intake & Output 11/04/21 11/05/21 11/05/21 18:59 06:59 18:59 Intake Total 2140 Output Total 2 Balance 2137 Weight 72.5 kg Intake: Oral 2140 Output: Stool 2 Other: Voiding Method Urinal Urinal # Voids 1 # Bowel Movements 1 - Labs CBC & Chem 7: 11/05/21 07:40 11/03/21 11:21 Labs: Abnormal Lab Results - Last 24 Hours (Table) 11/05/21 Range/Units 07:40 WBC 17.4 H (3.8-10.6) k/uL RBC 2.20 L (4.30-5.90) m/uL Hgb 6.4 L* (13.0-17.5) gm/dL Hct 19.8 L* (39.0-53.0) % RDW 17.4 H (11.5-15.5) % Plt Count 798 H (150-450) k/uL Microbiology - Last 24 Hours (Table) 10/25/21 17:44 Gram Stain - Preliminary Hip - Left Tissue Culture - Preliminary 11/02/21 16:25 Blood Culture - Preliminary Blood No Growth after 48 hours 11/03/21 08:27 Blood Culture - Preliminary Blood No Growth after 24 hours Assessment and Plan Plan: Assessment: 1. End-stage renal disease maintained on hemodialysis on Sunday schedule via permacath. 2. Hyponatremia secondary to chronic kidney disease. Hypervolemic. Expect improvement postdialysis. Better. 3. Anemia of chronic kidney disease. Iron replete. On Aranesp. Received bl ood transfusion this admission. No active bleeding. Also received DDAVP this admission. Hemoglobin 6.4 today. 4. Staph aureus bacteremia. Permacath removed 10/20/2021. Had a temporary femoral catheter placed which was removed 10/25/2021. Status post incision and drainage of the left hip and ankle cultures also positive for MSSA. On antibiotics. ID following. Permacath placed a 10/29/2021 - removed 11/03/2021 due to concern for vegetation on DEVEN. 5. Chronic kidney disease mineral bone disease. Phosphorous 5.6. On Renvela. 6. Hyperkalemia secondary to chronic kidney disease. Improved postdialysis. 7. Sinus tachycardia. On metoprolol. Cardiology following. Plan: Last hemodialysis 11/03/2021. Maintain torsemide. Discussed case with primary team, cardiology and infectious disease. Continue to check labs daily and assess need for renal replacement therapy. Potential permacath versus femoral catheter in the next 2-3 days. Follow-up cultures. Transfuse 1 unit of blood today. I will also give him a dose of IV DDAVP today.
[2021-11-05] MEDS: TORSEMIDE 20 MG TAB PO SCH (10:25)
[2021-11-05] MEDS: MULTIVITAMINS, THERA 1 EACH TAB PO SCH (10:25)
[2021-11-05] MEDS: ENOXAPARIN 30 MG/0.3 ML SYRINGE SQ SCH (10:25)
[2021-11-05] MEDS: METOPROLOL TARTRATE 25 MG TAB PO SCH ×2 (10:25→20:09)
[2021-11-05 11:53] LABS: Calcium 8.7 mg/dL (8.4-10.2); Potassium 4.7 mmol/L (3.5-5.1)
[2021-11-05] MEDS: HYDROcodone/APAP 5-325MG 1 EACH TAB PO PRN ×2 (12:38→20:09)
--- NOTE | 2021-11-05 14:11 | PN ---
PROGRESS NOTE This patient has a history of end-stage renal disease. Patient has been on dialysis. He was found to have a positive blood culture. Catheter has been removed. The patient is on IV antibiotic, under the care of Infectious Disease. Blood culture has been negative since 10/26 to 11/04/2021. Discussed with Dr. Jacinto and Dr. Mari. We will place a tunnel catheter via right femoral approach. Risks and complications discussed. MMODL / IJN: [id number] /
--- NOTE | 2021-11-05 16:41 | P.PN ---
Progress Note - Text Progress Note Date: 11/05/21 Chief Complaint: Not feeling well This is a 26-year-old patient, follows with Dr. Travis moore. Chronic stable medical conditions include end-stage kidney disease on hemodialysis Sunday and Sunday, essential hypertension, secondary hyperparathyroidism. Patient came in because of not feeling well. Unsteady weak diet and rundown. Unsure about fever. Blood drawn at the nephrology dialysis center was positive for gram-positive cocci. IV vancomycin was given. Patient is slightly delirious. Consultation nephrology denies D was done. Appetite fair denies any respiratory or urinary symptoms. Admitted with sepsis with positive blood culture from the dialysis center, delirium. IV vancomycin started. October 20: Tired. Decreased oral intake. Dialysis catheter to be taken out today. Patient received dialysis yesterday. Discussed with patient. Tired. Repeat blood cultures from yesterday growing staph aureus. October 21: Less delirious today. Dialysis catheter has been removed yesterday. Blood cultures from here growing staph aureus. Patient not hungry. Did not eat his breakfast. Tired. Patient complaining of pain around the left hip area. I ordered Doppler ultrasound that came back to be negative. Hip x-ray was also ordered and came back to be unremarkable. Orthopedics consulted. 10/23/2021 Patient is seen and evaluated in room at bedside; patient complains of generalized pain more so in Lasix; no complaint of chest pain or shortness of breath Vital signs are reviewed; blood pressure 169/98, pulse 111 Lab review shows a sodium of 123 which is down from 126 yesterday, potassium 5.9, bicarbonate 18, BUN/creatinine of 142/13.1 Repeat blood cultures drawn yesterday are reported positive; plan was to reinsert permacath if blood cultures were negative; nephrology recommending to proceed with placement of Angel catheter and dialyze the patient today and tomorrow due to worsening hyponatremia with plans to remove catheter after dialysis; patient will have a permacath placement once her cultures turn negative with possibility of paratonia dialysis in the meantime 10/24/2021 Patient is seen in follow-up this morning currently receiving hemodialysis. Multiple medical consultations including nephrology and infectious disease following. Blood cultures and catheter tip culture showing staph aureus and awaiting for bacteremia clearance. Patient will also need replacement dialysis catheter once cleared by infectious disease. Patient is currently maintained on 1500 mL fluid restrictions and will slightly increase as patient reports he is thirsty and not getting enough intake. Patient is currently afebrile and denies any chest pain or palpitations. 10/25/2021 Patient is seen in follow-up this morning and hemoglobin was found to be 6.8 and will transfuse 1 unit of PRBC. Patient is scheduled to undergo incision and drainage with possible debridement of the left hip and left lower extremity with orthopedics today. Patient also to have dialysis catheter removed by vascular surgery. Patient continues on fluid restrictions and is currently nothing by mouth for the procedure and diuretics being held. No plans for hemodialysis today. Patient is maintained on Sunday/Sunday/Sunday schedule and will gabby nue with nephrology following closely. Patient is also maintained on IV antibiotics with infectious disease following closely and will continue. Multiple culture showing MSSA and hopeful for cultures during surgery today. She is currently afebrile and denies chest pain or shortness of breath. Patient reports left leg pain. 10/26/2021 Patient is seen in follow-up today status post incision and drainage of the left lower extremity and left hip with orthopedics in currently maintained on IV antibiotics in the form of cefazolin with anxiety following closely. Patient being transitioned to nafcillin while awaiting for finalized cultures of the deep tissue cultures that were obtained during surgery. Patient had dialysis catheter removed and waiting prior to insertion of new catheter. 2-D echo was also ordered to assess for any vegetation. Patient continues with fevers and denies any chest pain or shortness of breath. Hemoglobin was 7.1 today after 1 unit of PRBCs yesterday. WBC trending up at 15.4 and BNP is noted with a creatinine of 8.08. Recommend close monitoring of vital signs and temperature control and continue to await for cultures. Patient reports his pain is curre ntly manageable and denies any chest pain or shortness of breath. 10/27/2021 Patient is seen today and continues on IV abx with multiple medical consultations following and blood cultures have been positive and awaiting repeat blood cultures for clearance of bacteremia. ID following closely and patient also remains without a dialysis catheter at this time. Patient continues with fevers as well and is status post I&D and debridement with ortho post op day 2. Patient hemoglobin is 6.9 and ordered a unit of prbc. Will hold for now and repeat am labs as patient has also not had dialysis for the last 2 days. Creatinine is 8 and nephrology following closely. Patient is extremely weak and will consult PT/OT. Patient denies chest pain or shortness of breath. 10/28/2021 Patient evaluated today continues to have positive blood cultures and awaiting repeat blood cultures that were drawn yesterday to monitor for clearance of bacteremia. Most recent have been negative for 24 hours and will await for 72 hour clearance prior to dialysis catheter placement. Patient continues with low-grade temps of 99 this morning. Patient also maintained on nafcillin with infectious disease following. Asians potassium critically elevated at 6.1 and hemoglobin remained 6.9. WBC is elevated as well at 22 and sodium is found to be 125 with a creatinine of 11.48. Nephrology following closely and may likely need a dialysis catheter temporary for hemodialysis. Ortho following and surgical drains removed of the left lower extremity. PT consulted. 10/29/2021 Patient is seen today and afebrile and maintained on IV antibiotics with ID following. Vascular surgery to place right chest wall dialysis catheter as patient needs emergent dialysis as he has continued elevated potassium and creatinine is above 11. Patient continues with weakness and will continue with PT and advance activity as tolerated. Patient received 1 unit of blood with hemoglobin 7.7. No reports of chest pain or shortness of breath. Encouraged oral intake. Patient was seen and covered by [facility] hospitalist from October 22 through October 29 10/30/2021: Patient getting hemodialysis today. Decreased appetite. On IV nafcillin. No pain. Laying in bed. Patient in the last few days however I&D of septic arthritis including left hip left knee and left ankle. All cultures growing MSSA. 10/31/2021: Two-level good breakfast. Not hungry for lunch. On IV nafcillin. And wish to be out of bed. Patient to be changed over to Ancef at dialysis upon discharge. Hemoglobin 6.9. 1 unit of PRBC ordered. 11/01/2021: On IV nafcillin. Tachycardia. Cardiology consulted. Discussed with the patient. We will try Marinol. 11/02/2021: Remains tachycardic. Spiked a fever to 101 earlier. Discussed with ID. DEVEN ordered with cardiology. Patient started on Marinol yesterday. Feels tired. Hemoglobin 6.7. 1 unit of blood ordered. Hemodialysis today. 11/03/2021: Patient underwent DEVEN E by Dr. Moore today. 1 cm x 0.5 cm of vegetation noted on the catheter tip. Discussed with him, Dr. Mari from nephrology and Dr. Sevilla from ID. It was decided to remove the catheter after dialysis today. Patient never temporary dialysis catheter placed. Discussed with the patient. 11/04/2021: Right jugular dialysis catheter was removed by Dr. Christy yesterday. Patient has a left upper extremity radiocephalic fistula from [facility] 2020. Failure to mature. Patient somewhat disappointed because of his lengthy stay in the hospital. Discussed at length with him and his friend at the bedside. He does understand. But feels frustrated. 11/05/2021: Oral intake variable. Has been feeling depressed. Consult psychiatry. Hemoglobin 6.4. Unit of blood ordered. Likely hemolysis. No evidence of GI bleed. Active Medications Acetaminophen (Acetaminophen Tab 325 Mg Tab) 650 mg PO Q4HR PRN PRN Reason: Fever and/ or Pain Last Admin: 11/04/21 19:50 Dose: 650 mg Hydrocodone Bitart/Acetaminophen (Hydrocodone/Apap 5-325mg 1 Each Tab) 1 each PO Q6HR PRN PRN Reason: Pain Last Admin: 11/05/21 12:38 Dose: 1 each Darbepoetin Luis E (Darbepoetin Luis E 40 Mcg/0.4 Ml Syringe) 40 mcg SQ Q7D [facility] Last Admin: 11/02/21 13:26 Dose: 40 mcg Dronabinol (Dronabinol 2.5 Mg Cap) 5 mg PO AC-BID [facility] Last Admin: 11/05/21 07:02 Dose: Not Given Enoxaparin Sodium (Enoxaparin 30 Mg/0.3 Ml Syringe) 30 mg SQ DAILY [facility] Last Admin: 11/05/21 10:25 Dose: 30 mg Nafcillin Sodium 2 gm/ (Dextrose/Water) 100 mls @ 100 mls/hr IVPB Q4H [facility]; Protocol Last Admin: 11/05/21 10:50 Dose: 100 mls/hr Lorazepam (Lorazepam 0.5 Mg Tab) 0.5 mg PO Q6HR PRN PRN Reason: Anxiety Last Admin: 11/05/21 03:16 Dose: 0.5 mg Metoprolol Tartrate (Metoprolol Tartrate 25 Mg Tab) 25 mg PO BID [facility] Last Admin: 11/05/21 10:25 Dose: 25 mg Multivitamins (Multivitamins, Thera 1 Each Tab) 1 each PO DAILY [facility] Last Admin: 11/05/21 10:25 Dose: 1 each Naloxone HCl (Naloxone 0.4 Mg/Ml 1 Ml Vial) 0.2 mg IV Q2M PRN PRN Reason: Opioid Reversal Sevelamer Carbonate (Sevelamer 800 Mg Tab) 1,600 mg PO TID-W/MEALS [facility] Last Admin: 11/05/21 12:37 Dose: 1,600 mg Thiamine HCl (Thiamine 100 Mg Tab) 100 mg PO BID-W/MEALS [facility] Last Admin: 11/05/21 06:24 Dose: 100 mg Torsemide (Torsemide 20 Mg Tab) 80 mg PO DAILY [facility] Last Admin: 11/05/21 10:25 Dose: 80 mg Past medical history to include: End-stage kidney disease on hemodialysis, anemia of CK D, minimal bone disease Social history: Lives with his mother. Smokes about 5 bowls of marijuana daily. No alcohol or cigarette smoking. Family history: Diabetes, COPD, A. fib, CHF Physical examination: VITAL SIGNS: 99.1, 107, 16, 130/76, 97% room air GENERAL: Laying in bed, awake EYES: Pupils equal. Conjunctiva normal. HEENT: External appearance of nose and ears normal, oral cavity grossly normal. NECK: JVD not raised; masses not palpable. HEART: First and second heart sounds are normal; no edema. LUNGS: Respiratory rate normal; clear to auscultation. ABDOMEN: Soft, nontender, liver spleen not palpable, no masses palpable. PSYCH: AO 3, mood and affect, a bit low MUSCULOSKELETAL:No Clubbing/cyanosis;muscles-grossly intact INVESTIGATIONS, reviewed in the clinical context: November 05: WBC 17.4 hemoglobin 6.4 potassium 4.7 creatinine 9.05 November 03: WBC 18.7, hemoglobin 7.1 platelets and 5 to potassium 4.2 creatinine 7.73 DEVEN [November 03]: 1 cm x 0.5 cm vegetation on catheter tip November 02: White count 8.2 hemoglobin 6.7 platelets 757 October 31: WBC 19 hemoglobin 6.9 potassium 4.5 creatinine 8.15 October 30: White count 19.8 hemoglobin 7.1 platelet 774 sodium 126 potassium 5.4 creatinine 9.96 October 21: Sodium 127 potassium 5.4 twice a day 2 creatinine 9.1 Urine drug screen: Positive for opiates, benzodiazepine, marijuana White count 12.4 hemoglobin 9 platelets 170 sodium 126 potassium 5.3 rate 80 creatinine 10.9 phosphorus 5.6 and magnesium 2.8 bilirubin 1.8 EKG tracing personally reviewed by me-sinus tachycardia rate of 1:30. Right bun dle branch block pattern. Nonspecific ST segment changes. Assessment and plan: -Sepsis with blood cultures positive for MSSA. done at the dialysis center and from October 19.: Slow to respond IV nafcillin Dialysis catheter removed October 20. Blood culture negative on October 27. DEVEN on November 03 showing vegetation on catheter. Right internal jugular Dialysis catheter removed November 03. -Polyarticular septic arthritis including the left hip, left knee, left ankle with I&D of all the joints. IV nafcillin -Acute delirium from sepsis: Improved Treat underlying infection -End-stage kidney disease on hemodialysis Sunday and Sunday On dialysis schedule -Anemia of chronic kidney disease, dropped hemoglobin to 6.7. Follow H&H. Patient received 3 units blood. -Acute hemolysis from sepsis causing recurrent drop in hemoglobin Patient today has been ordered 5 unit of blood -mineral bone disease/CK D Supplements -Hyperphosphatemia secondary to CK D Renvela -Hypervolemic hyponatremia: Slow to respond Encourage oral intake. Fluid to be taken off at dialysis. -Anorexia multifactorial Marinol 5 mg twice a day -Sinus tachycardia likely combination of deconditioning and infection Continue current treatment plan. IV nafcillin. Potassium being monitored. Next dialysis depending on clinical course. Repeat blood cultures have been negative. Transfuse unit of blood.
[2021-11-05 18:51] LABS: Partial Thromboplastin Time 22.3 sec (22.0-30.0); Prothrombin Time 11.3 sec (9.0-12.0)
[2021-11-05 19:27] LABS: ALT 24 U/L (4-49); AST 35 U/L (17-59); Albumin 2.8 g/dL (3.5-5.0); Alkaline Phosphatase 213 U/L (38-126); LDH 574 U/L (313-618); Total Protein 7.3 g/dL (6.3-8.2)
--- NOTE | 2021-11-05 20:32 | P.PN ---
Subjective Progress Note Date: 11/05/21 Principal diagnosis: Bacteremia Patient is a 26 year old male with a past medical history significant for end-stage renal disease on hemodialysis presented to hospital with sepsis and bacteremia secondary to dialysis catheter infection which was removed the evening of 10/20/2021. Patient is status post I and D of the left knee and hip and ankle area completed 10/25/2021, patient is status post new permacatheter placement on 10/29/2021 as a blood culture from 10/26/2021 were negative, the patient is status post DEVEN completed with no evidence of endocarditis however did show mobile mass attached to the dialysis catheter which has been removed 11/03/2021 On today's evaluation that is 11/05/2021, the patient did have a low-grade fever last evening however the patient is afebrile this morning , the patient denies chest pain shortness of breath or cough , the patient denies abdominal pain and no diarrhea, patient pain to the left knee as well as the ankle area is currently controlled and no new symptoms Objective - Vital Signs Vital signs: Vital Signs Temp 99.3 F 11/05/21 08:00 Pulse 114 H 11/05/21 08:00 Resp 17 11/05/21 08:00 BP 159/85 11/05/21 08:00 Pulse Ox 96 11/05/21 08:00 FiO2 Intake & Output 11/04/21 11/05/21 11/05/21 18:59 06:59 18:59 Intake Total 2140 Output Total 2 Balance 2138 Weight 72.5 kg Intake: Oral 2140 Output: Stool 2 Other: Voiding Method Urinal Urinal # Voids 1 # Bowel Movements 1 - Exam GENERAL DESCRIPTION: Young male lying in bed in no distress RESPIRATORY SYSTEM: Unlabored breathing , decreased breath sounds at bases HEART: S1 S2 regular rate and rhythm , ABDOMEN: Soft , no tenderness EXTREMITIES: No edema feet - Labs CBC & Chem 7: 11/05/21 07:40 11/05/21 07:40 Labs: Abnormal Lab Results - Last 24 Hours (Table) 11/05/21 Range/Units 07:40 WBC 17.4 H (3.8-10.6) k/uL RBC 2.20 L (4.30-5.90) m/uL Hgb 6.4 L* (13.0-17.5) gm/dL Hct 19.8 L* (39.0-53.0) % RDW 17.4 H (11.5-15.5) % Plt Count 798 H (150-450) k/uL Microbiology - Last 24 Hours (Table) 11/03/21 08:27 Blood Culture - Preliminary Blood No Growth after 48 hours 10/25/21 17:44 Gram Stain - Preliminary Hip - Left Tissue Culture - Preliminary 11/02/21 16:25 Blood Culture - Preliminary Blood No Growth after 48 hours Assessment and Plan (1) Positive blood culture Current Visit: No Status: Acute Code(s): R78.81 - BACTEREMIA SNOMED Code(s): 572791778 Plan: 1patient presented to hospital with sepsis source is likely dialysis catheter infection in this patient who did have a staphylococcal bacteremia which has been finalized as MSSA 2the patient dialysis catheter has been removed and tip has been sent for the culture which came back positive with MSSA. 3patient is status post I&D of the left hip and ankle in the area, cultures f rom the knee and ankle positive for MSSA 4patient did have persistent bacteremia echocardiogram did not show any vegetation 5patient blood culture 10/26/21 and 10/27/2021 are negative and patient was cleared to get his dialysis catheter which was placed on 10/29/2021 6patient with a new fever which is slightly concerning also have a drop in hemoglobin with a question of possible hematoma, underlying endovascular infection less likely but not entirely excluded DEVEN was completed and mention m obile vegetation attached to the dialysis catheter which was just placed 5 days ago and the patient was not bacteremic for more than 72 hour before the catheter was placed, dialysis catheter was discontinued on 11/03/2021, patient did have blood culture repeated on 11/02/2021, 11/03/2021, 11/04/2021 and has been negative so far, catheter tip is pending, patient will be cleared for new dialysis catheter was the patient is afebrile for more than 24 hour and his culture remains to be negative 7- patient to continue with Naficillin for now Time with Patient: Less than 30
--- NOTE | 2021-11-05 21:33 | P.CONS ---
History of Present Illness - Reason for Consult Consult date: 11/05/21 Refractory Anemia Requesting physician: Chano Smith - History of Present Illness This is a 26 year old male patient who has ESRD on Hemodialysis, hypertension, hyperparathyroidsism. He was admitted with bacteremia, staph aureus. Status post I and D left hip, left knee, left ankle septic arthritis 10/21/21. cultures positive MSSA. Dialysis catheter was also cultured positive. He has been requiri ng blood transfusions daily the past few days, without recovery. He has thrombocytosis, which is likely reactive, however no evidence of bleeding and iron studies are not able to be considered as appears to be post transfusion. Because of this we have been asked to further evaluate Review of Systems All systems: negative Constitutional: Reports as per HPI Past Medical History Past Medical History: Dialysis, Hypertension Additional Past Medical History / Comment(s): Covid 19 03/2020, past protein in urine, occasional nose bleeds dialysis M-W-F. port rt chest History of Any Multi-Drug Resistant Organisms: None Reported Past Surgical History: No Surgical Hx Reported Additional Past Surgical History / Comment(s): chest port x2. tooth extraction Past Anesthesia/Blood Transfusion Reactions: Previous Problems w/ Anesthesia Additional Past Anesthesia/Blood Transfusion Reaction / Comm: 1st port no issue, 2nd port replacement "felt everything Past Psychological History: Anxiety Smoking Status: Never smoker Past Alcohol Use History: None Reported Past Drug Use History: Marijuana - Past Family History Mother History Unknown: Yes Family Medical History: Diabetes Mellitus Additional Family Medical History / Comment(s): heart mummur. Grandmother had COPD, A fib and CHF. Father History Unknown: Yes Additional Family Medical History / Comment(s): Grandfather had dialysis for a couple of years. Medications and Allergies Home Medications Medication Instructions Recorded Confirmed Type amLODIPine [Norvasc] 5 mg PO DAILY #30 tab 09/17/20 10/18/21 Rx Auryxia 210mg 840 tab PO TID-W/MEALS 11/15/20 10/18/21 History Calcium Acetate [PhosLo] 1,334 mg PO TID-W/MEALS 11/15/20 10/18/21 History Calcium Acetate [PhosLo] 667 mg PO DAILY PRN 11/15/20 10/18/21 History Renaplex-D 1 tab PO DAILY 11/15/20 10/18/21 History carvediloL [Coreg] 3.125 mg PO BID-W/MEALS 11/15/20 10/18/21 History Torsemide [Demadex] 40 mg PO DAILY 02/24/21 10/18/21 History Cyclobenzaprine [Flexeril] 5 mg PO TID PRN 10/18/21 10/18/21 History Lidocaine-Prilocaine Cream [Emla 1 applic TOPICAL DIRECTED PRN 10/18/21 10/18/21 History Cream 2.5%/2.5%] Sevelamer Carbonate 800 mg PO DAILY PRN 10/18/21 10/18/21 History Sevelamer [Renvela] 1,600 mg PO TID-W/MEALS 10/18/21 10/18/21 History Allergies Allergy/AdvReac Type Severity Reaction Status Date / Time chlorhexidine Allergy Itching Verified 10/18/21 22:07 Physical Exam Vitals: Vital Signs Temp Pulse Pulse Resp BP BP Pulse Ox 11/05/21 19:48 99.9 F H 118 H 18 150/61 99 11/05/21 19:35 99.9 F H 118 H 18 150/61 99 11/05/21 16:37 97.4 F L 108 H 16 144/81 100 11/05/21 16:07 99.1 F 107 H 16 138/76 97 11/05/21 16:06 99.1 F 107 H 16 138/76 97 11/05/21 16:00 97.6 F 107 H 19 134/82 99 11/05/21 15:57 98.7 F 108 H 16 143/71 96 11/05/21 14:00 107 H 16 11/05/21 12:00 98.6 F 94 18 138/74 99 11/05/21 08:00 99.3 F 107 H 16 159/85 96 11/05/21 03:49 99 F 108 H 18 144/83 97 11/04/21 23:46 98.8 F 104 H 18 143/73 97 Intake and Output 11/05/21 11/05/21 11/05/21 06:59 14:59 22:59 Intake Total 310 Output Total 2 1 Balance -2 309 Intake: Blood Product 310 Rc As-1 Unit 310 [id number] Output: Stool 2 1 Other: Voiding Method Urinal Urinal Urinal - Constitutional General appearance: cooperative - EENT Eyes: EOMI ENT: NA/AT - Neck Neck: normal ROM - Respiratory Respiratory: bilateral: diminished - Cardiovascular Rhythm: regularly irregular - Gastrointestinal General gastrointestinal: soft - Integumentary Integumentary: pale - Neurologic Neurologic: CNII-XII intact - Musculoskeletal Musculoskeletal: generalized weakness - Psychiatric Psychiatric: A&O x's 3 Results CBC & Chem 7: 11/05/21 07:40 11/05/21 07:40 Labs: Abnormal Lab Results - Last 24 Hours (Table) 11/05/21 11/05/21 11/05/21 Range/Units 07:40 07:40 10:04 WBC 17.4 H (3.8-10.6) k/uL RBC 2.20 L (4.30-5.90) m/uL Hgb 6.4 L* (13.0-17.5) gm/dL Hct 19.8 L* (39.0-53.0) % RDW 17.4 H (11.5-15.5) % Plt Count 798 H (150-450) k/uL Retic Count (0.5-2.0) % Fibrinogen (200-500) mg/dL D-Dimer (<0.60) mg/L FEU Sodium 130 L (137-145) mmol/L Chloride 91 L (98-107) mmol/L BUN 59 H (9-20) mg/dL Creatinine 9.05 H* (0.66-1.25) mg/dL Total Bilirubin (0.2-1.3) mg/dL Delta Bilirubin (0.0-0.2) mg/dL Alkaline Phosphatase (38-126) U/L Albumin (3.5-5.0) g/dL Crossmatch See Detail 11/05/21 11/05/21 11/05/21 Range/Units 18:14 18:14 18:14 WBC (3.8-10.6) k/uL RBC (4.30-5.90) m/uL Hgb (13.0-17.5) gm/dL Hct (39.0-53.0) % RDW (11.5-15.5) % Plt Count (150-450) k/uL Retic Count 3.0 H (0.5-2.0) % Fibrinogen 827 H (200-500) mg/dL D-Dimer 18.64 H (<0.60) mg/L FEU Sodium (137-145) mmol/L Chloride (98-107) mmol/L BUN (9-20) mg/dL Creatinine (0.66-1.25) mg/dL Total Bilirubin 2.0 H (0.2-1.3) mg/dL Delta Bilirubin 2.0 H (0.0-0.2) mg/dL Alkaline Phosphatase 213 H (38-126) U/L Albumin 2.8 L (3.5-5.0) g/dL Crossmatch Microbiology - Last 24 Hours (Table) 11/02/21 16:25 Blood Culture - Preliminary Blood No Growth after 72 hours 11/04/21 08:09 Blood Culture - Preliminary Blood No Growth after 24 hours 11/03/21 08:27 Blood Culture - Preliminary Blood No Growth after 48 hours 10/25/21 17:44 Gram Stain - Preliminary Hip - Left Tissue Culture - Preliminary Assessment and Plan (1) Renal failure Narrative/Plan: Defer increased dosage of Epogen to nephrology Current Visit: Yes Status: Acute Code(s): N19 - UNSPECIFIED KIDNEY FAILURE SNOMED Code(s): 32609754 (2) Septic arthritis of multiple joints Narrative/Plan: - COncern for compartment or recurrent edema and bleeding in joints, given thrombocytosis starting 10/27 and has progressed since then, consider [id number] of prior affected joints for compartment versus hematoma. Current Visit: Yes Status: Acute Code(s): M00.9 - PYOGENIC ARTHRITIS, UNSPECIFIED SNOMED Code(s): 97221095 (3) Septic joint of left knee joint Current Visit: Yes Status: Acute Code(s): M00.9 - PYOGENIC ARTHRITIS, UNSPECIFIED SNOMED Code(s): 031890108 (4) MSSA bacteremia Current Visit: No Status: Acute Code(s): R78.81 - BACTEREMIA; B95.61 - METHICILLIN SUSCEP STAPH INFCT CAUSING DIS CLASSD ELSWHR SNOMED Code(s): 247334270 (5) Positive blood culture Current Visit: No Status: Acute Code(s): R78.81 - BACTEREMIA SNOMED Code(s): 843690483 (6) Normocytic anemia Narrative/Plan: This is likely due to severe sepsis, bacteremia on top of ESRD and actute on chronic inflammation - Hemolysis labs and monoclonal assessed - Will review smear for fragmented cells - COnsider bleeding in areas of prior edema, hematoma, joints. Current Visit: Yes Status: Acute Code(s): D64.9 - ANEMIA, UNSPECIFIED SNOMED Code(s): 876853205
[2021-11-05 22:47] LABS: Anisocytosis Slight; Basophils # (A) 0.1 k/uL (0-0.2); Basophils % (A) 1 %; Eosinophils # (A) 0.4 k/uL (0-0.7); Eosinophils % (A) 2 %; HCT 20.6 % (39.0-53.0); Hypochromasia Slight; Lymphocytes # (A) 1.7 k/uL (1.0-4.8); Lymphocytes % (A) 10 %; MCH 28.3 pg (25.0-35.0); MCHC 31.9 g/dL (31.0-37.0); MCV 88.8 fL (80.0-100.0); Mean Platelet Volume 7.8; Monocytes # (A) 0.9 k/uL (0-1.0); Monocytes % (A) 5 %; Neutrophils # (A) 13.4 k/uL (1.3-7.7); Neutrophils % (A) 80 %; Platelet Count 742 k/uL (150-450); RBC 2.32 m/uL (4.30-5.90); RDW 17.4 % (11.5-15.5); WBC 16.7 k/uL (3.8-10.6)
[2021-11-05 22:56] LABS: HGB 6.6 gm/dL (13.0-17.5)
[2021-11-06] LABS: Erythrocyte Sedimentation Rate >140 mm/hr (0-15)
[2021-11-06] MEDS: NAFCILLIN 2 GM in DEXTROSE 5% IN WATER 100 ML IVPB SCH ×12 (02:55→21:25)
[2021-11-06] MEDS: THIAMINE 100 MG TAB PO SCH ×2 (05:45→17:26)
[2021-11-06] MEDS: SEVELAMER 800 MG TAB PO SCH ×3 (05:45→17:38)
[2021-11-06 06:56] LABS: Albumin 2.7 g/dL (3.5-5.0); Calcium 8.7 mg/dL (8.4-10.2); Potassium 4.9 mmol/L (3.5-5.1); Total Bilirubin 2.2 mg/dL (0.2-1.3); Total Protein 7.3 g/dL (6.3-8.2)
[2021-11-06 07:20] LABS: Anisocytosis Slight; HCT 21.6 % (39.0-53.0); Hypochromasia Slight; MCH 27.3 pg (25.0-35.0); MCHC 31.1 g/dL (31.0-37.0); MCV 87.8 fL (80.0-100.0); Mean Platelet Volume 8.7; Platelet Count 733 k/uL (150-450); RBC 2.46 m/uL (4.30-5.90); RDW 17.1 % (11.5-15.5); WBC 15.9 k/uL (3.8-10.6)
[2021-11-06 07:26] LABS: HGB 6.7 gm/dL (13.0-17.5)
[2021-11-06] MEDS: ENOXAPARIN 30 MG/0.3 ML SYRINGE SQ SCH (08:24)
[2021-11-06] MEDS ORDERED: MIDAZOLAM 2 MG/2 ML VIAL IV ONE (08:41)
[2021-11-06] MEDS: fentaNYL (PF) 50 MCG/ML 2 ML AMP IV ONE ×3 (08:41→08:59)
[2021-11-06] MEDS ORDERED: LIDOCAINE 1% INJ 10MG/ML (30 ML VIAL-PF) SQ ONE (08:44)
[2021-11-06] MEDS ORDERED: IV FLUID CONTINUATION 200 ML IV ONE (08:51)
[2021-11-06] MEDS ORDERED: IOPAMIDOL-250 100ML BTL IV ONE (08:52)
[2021-11-06] MEDS: HYDROcodone/APAP 5-325MG 1 EACH TAB PO PRN ×2 (09:36→17:29)
[2021-11-06] MEDS: LORazepam 0.5 MG TAB PO PRN (09:36)
[2021-11-06 09:39] LABS: Protein, Total 7.2 g/dL (6.2-8.2)
[2021-11-06 09:44] LABS: Immunoglobulin M 42.7 mg/dL (40.0-280.0)
--- NOTE | 2021-11-06 09:48 | PCN ---
PROCEDURE NOTE PREOPERATIVE DIAGNOSIS: Acute chronic renal failure. POSTOPERATIVE DIAGNOSIS: Acute renal failure. PROCEDURE PERFORMED: Ultrasound-guided 44 cm dialysis catheter placement via right femoral approach. Sedation time 30 minutes. PROCEDURE DESCRIPTION: This patient was brought to the cath lab nurse. This patient had an IJ catheter. Blood cultures were positive for the last 3 days. The blood culture is negative. We decided to place a dialysis catheter via right femoral approach. He has a fistula which is not working. Patient was brought to the cath lab nurse. Right and left groins were prepped and drapes were applied in sterile manner. Lidocaine 1% was infiltrated. Under local and IV sedation, ultrasound-guided micropuncture was introduced into the right femoral vein. This patient had a dialysis catheter placed in the past. We checked the inferior vena cava. Inferior vena cava was patent. Then we created a tunnel. Through the tunnel we brought a 44 cm permanent dialysis catheter. A regular guidewire was passed under fluoroscopy control. Dilator was advanced and sheath was advanced on the top of the guidewire. Through the sheath, we introduced the dialysis catheter. It was flushed with heparin saline and hep-locked, secured with 3-0 nylon. Dressing was applied. Patient tolerated the procedure well and was transferred to his room in satisfactory condition. MMSIMONE / JEAN-CLAUDEN: [id number] /
--- NOTE | 2021-11-06 09:52 | IR ---
EXAMINATION TYPE: IR cvc insert central tunneled DATE OF EXAM: 11/06/2021 CLINICAL HISTORY: Renal failure. TECHNIQUE: Fluoroscopy. COMPARISON: None. FINDINGS: Fluoroscopic guidance was provided during right femoral dialysis catheter insertion proced ure performed by Dr. Medina. A total of 2.4 minutes of fluoroscopic time was utilized during the pr ocedure and 95 spot images was acquired. Images show portions of large bore right common femoral veno us catheter terminating in IVC. IMPRESSION: As Above.
[2021-11-06 10:02] LABS: Band Neutrophils % 1 %; Basophils # (M) 0.16 k/uL (0-0.2); Eosinophils # (M) 0.48 k/uL (0-0.7); Lymphocytes # (M) 2.07 k/uL (1.0-4.8); Metamyelocytes # (M) 0.16 k/uL (0); Metamyelocytes % 1 %; Monocytes # (M) 1.59 k/uL (0-1.0); Myelocytes # (M) 0.16 k/uL (0); Myelocytes % 1 %; Neutrophils % (M) 72 %; Nucleated Red Blood Cells 0 /100 WBC (0-0); Total Cells Counted 200
--- NOTE | 2021-11-06 10:28 | P.PN ---
Subjective Patient is seen in follow-up for end-stage renal disease. He is maintained on hemodialysis on Sunday schedule. Permacath placed 10/29/2021 - removed 11/03/2021 due to concern for vegetation. Resting in bed. Denies chest pain or shortness of breath. Last hemodialysis 11/03/2021. Hemoglobin 6.7 today. No active bleeding. Received a unit of blood yesterday. Vital signs are stable. General: Awake and alert. No acute distress. HEENT: Head exam is unremarkable. LUNGS: Breath sounds decreased. HEART: Rate and Rhythm are regular. ABDOMEN: Soft, no distention. EXTREMITITES: No edema. Objective - Vital Signs Vital signs: Vital Signs Temp 98.5 F 11/06/21 09:30 Pulse 107 H 11/06/21 03:00 Resp 18 11/06/21 09:30 BP 147/79 11/06/21 09:30 Pulse Ox 98 11/06/21 09:30 FiO2 Intake & Output 11/05/21 11/06/21 11/06/21 18:59 06:59 18:59 Intake Total 0 310 100 Output Total 2 2 Balance -2 308 100 Intake: IV 100 Oral 0 Blood Product 0 310 Rc As-1 Unit 0 310 [id number] Output: Stool 2 2 Other: Voiding Method Urinal Urinal - Labs CBC & Chem 7: 11/06/21 06:16 11/06/21 06:16 Labs: Abnormal Lab Results - Last 24 Hours (Table) 11/05/21 11/05/21 11/05/21 Range/Units 07:40 10:04 18:14 WBC (3.8-10.6) k/uL RBC (4.30-5.90) m/uL Hgb (13.0-17.5) gm/dL Hct (39.0-53.0) % RDW (11.5-15.5) % Plt Count (150-450) k/uL Neutrophils # (1.3-7.7) k/uL Neutrophils # (Manual) (1.3-7.7) k/uL Monocytes # (Manual) (0-1.0) k/uL Metamyelocytes # (Man) (0) k/uL Myelocytes # (Manual) (0) k/uL ESR (0-15) mm/hr Retic Count (0.5-2.0) % Fibrinogen 827 H (200-500) mg/dL D-Dimer 18.64 H (<0.60) mg/L FEU Sodium 130 L (137-145) mmol/L Chloride 91 L (98-107) mmol/L BUN 59 H (9-20) mg/dL Creatinine 9.05 H* (0.66-1.25) mg/dL Total Bilirubin (0.2-1.3) mg/dL Delta Bilirubin (0.0-0.2) mg/dL Alkaline Phosphatase (38-126) U/L C-Reactive Protein (<1.0) mg/dL Albumin (3.5-5.0) g/dL IgG (700.0-1600.0) mg/dL IgA (60.0-350.0) mg/dL Crossmatch See Detail 11/05/21 11/05/21 11/05/21 Range/Units 18:14 18:14 18:14 WBC (3.8-10.6) k/uL RBC (4.30-5.90) m/uL Hgb (13.0-17.5) gm/dL Hct (39.0-53.0) % RDW (11.5-15.5) % Plt Count (150-450) k/uL Neutrophils # (1.3-7.7) k/uL Neutrophils # (Manual) (1.3-7.7) k/uL Monocytes # (Manual) (0-1.0) k/uL Metamyelocytes # (Man) (0) k/uL Myelocytes # (Manual) (0) k/uL ESR (0-15) mm/hr Retic Count 3.0 H (0.5-2.0) % Fibrinogen (200-500) mg/dL D-Dimer (<0.60) mg/L FEU Sodium (137-145) mmol/L Chloride (98-107) mmol/L BUN (9-20) mg/dL Creatinine (0.66-1.25) mg/dL Total Bilirubin 2.0 H (0.2-1.3) mg/dL Delta Bilirubin 2.0 H (0.0-0.2) mg/dL Alkaline Phosphatase 213 H (38-126) U/L C-Reactive Protein (<1.0) mg/dL Albumin 2.8 L (3.5-5.0) g/dL IgG 2647.0 H (700.0-1600.0) mg/dL IgA 498.0 H (60.0-350.0) mg/dL Crossmatch 11/05/21 11/06/21 11/06/21 Range/Units 22:01 06:16 06:16 WBC 16.7 H 15.9 H (3.8-10.6) k/uL RBC 2.32 L 2.46 L (4.30-5.90) m/uL Hgb 6.6 L* 6.7 L* (13.0-17.5) gm/dL Hct 20.6 L 21.6 L (39.0-53.0) % RDW 17.4 H 17.1 H (11.5-15.5) % Plt Count 742 H 733 H (150-450) k/uL Neutrophils # 13.4 H (1.3-7.7) k/uL Neutrophils # (Manual) 11.60 H (1.3-7.7) k/uL Monocytes # (Manual) 1.59 H (0-1.0) k/uL Metamyelocytes # (Man) 0.16 H (0) k/uL Myelocytes # (Manual) 0.16 H (0) k/uL ESR >140 H (0-15) mm/hr Retic Count (0.5-2.0) % Fibrinogen (200-500) mg/dL D-Dimer (<0.60) mg/L FEU Sodium 130 L (137-145) mmol/L Chloride 91 L (98-107) mmol/L BUN 76 H (9-20) mg/dL Creatinine 10.49 H* (0.66-1.25) mg/dL Total Bilirubin 2.2 H (0.2-1.3) mg/dL Delta Bilirubin (0.0-0.2) mg/dL Alkaline Phosphatase 194 H (38-126) U/L C-Reactive Protein 8.0 H (<1.0) mg/dL Albumin 2.7 L (3.5-5.0) g/dL IgG (700.0-1600.0) mg/dL IgA (60.0-350.0) mg/dL Crossmatch Microbiology - Last 24 Hours (Table) 11/02/21 16:25 Blood Culture - Preliminary Blood No Growth after 72 hours 11/04/21 08:09 Blood Culture - Preliminary Blood No Growth after 24 hours 11/03/21 08:27 Blood Culture - Preliminary Blood No Growth after 48 hours Assessment and Plan Plan: Assessment: 1. End-stage renal disease maintained on hemodialysis on Sunday schedule via permacath. 2. Hyponatremia secondary to chronic kidney disease. Hypervolemic. Expect improvement postdialysis. Better. 3. Anemia of chronic kidney disease. Iron replete. On Aranesp. Received blood transfusions this admission. No active bleeding. Also received DDAVP this admission. Hemoglobin 6.7 today. Hematology following. 4. Staph aureus bacteremia. Permacath removed 10/20/2021. Had a temporary femoral catheter placed which was removed 10/25/2021. Status post incision and drainage of the left hip and ankle cultures also positive for MSSA. On antibiotics. ID following. Permacath placed a 10/29/2021 - removed 11/03/2021 due to concern for vegetation on DEVEN. 5. Chronic kidney disease mineral bone disease. Phosphorous 5.6. On Renvela. 6. Hyperkalemia secondary to chronic kidney disease. Improved postdialysis. 7. Sinus tachycardia. On metoprolol. Cardiology following. Plan: Last hemodialysis 11/03/2021. Maintain torsemide. Follow-up cultures. Transfuse 1 unit of blood today. Scheduled for tunneled femoral catheter placement today. Plan for hemodialysis today and again tomorrow. Discussed case with primary team, cardiology, vascular surgery, and infectious disease.
--- NOTE | 2021-11-06 11:49 | P.GSCN ---
History of Present Illness Consult date: 11/06/21 Reason for Consult: Anemia, rule out GI bleed History of present illness: Patient's a 26-year-old man with complicated medical history. He's had progressive anemia and I was asked to evaluate him for possible GI bleed. The patient denies any abdominal pain, nausea or vomiting. Denies any blood in the stool or dark tarry stool. Denies any history of ulcer disease. Review of Systems All systems: negative Past Medical History Past Medical History: Dialysis, Hypertension Additional Past Medical History / Comment(s): Covid 19 03/2020, past protein in urine, occasional nose bleeds dialysis M-W-F. port rt chest History of Any Multi-Drug Resistant Organisms: None Reported Past Surgical History: No Surgical Hx Reported Additional Past Surgical History / Comment(s): chest port x2. tooth extraction Past Anesthesia/Blood Transfusion Reactions: Previous Problems w/ Anesthesia Additional Past Anesthesia/Blood Transfusion Reaction / Comm: 1st port no issue, 2nd port replacement "felt everything Past Psychological History: Anxiety Smoking Status: Never smoker Past Alcohol Use History: None Reported Past Drug Use History: Marijuana - Past Family History Mother History Unknown: Yes Family Medical History: Diabetes Mellitus Additional Family Medical History / Comment(s): heart mummur. Grandmother had COPD, A fib and CHF. Father History Unknown: Yes Additional Family Medical History / Comment(s): Grandfather had dialysis for a couple of years. Medications and Allergies Home Medications Medication Instructions Recorded Confirmed Type amLODIPine [Norvasc] 5 mg PO DAILY #30 tab 09/17/20 10/18/21 Rx Auryxia 210mg 840 tab PO TID-W/MEALS 11/15/20 10/18/21 History Calcium Acetate [PhosLo] 1,334 mg PO TID-W/MEALS 11/15/20 10/18/21 History Calcium Acetate [PhosLo] 667 mg PO DAILY PRN 11/15/20 10/18/21 History Renaplex-D 1 tab PO DAILY 11/15/20 10/18/21 History carvediloL [Coreg] 3.125 mg PO BID-W/MEALS 11/15/20 10/18/21 History Torsemide [Demadex] 40 mg PO DAILY 02/24/21 10/18/21 History Cyclobenzaprine [Flexeril] 5 mg PO TID PRN 10/18/21 10/18/21 History Lidocaine-Prilocaine Cream [Emla 1 applic TOPICAL DIRECTED PRN 10/18/21 10/18/21 History Cream 2.5%/2.5%] Sevelamer Carbonate 800 mg PO DAILY PRN 10/18/21 10/18/21 History Sevelamer [Renvela] 1,600 mg PO TID-W/MEALS 10/18/21 10/18/21 History Allergies Allergy/AdvReac Type Severity Reaction Status Date / Time chlorhexidine Allergy Itching Verified 10/18/21 22:07 Surgical - Exam Osteopathic Statement: *. No significant issues noted on an osteopathic structural exam other than those noted in the History and Physical/Consult. Vital Signs Temp Pulse Resp BP Pulse Ox 97.8 F 104 H 18 121/59 97 10/18/21 20:03 10/18/21 20:03 10/18/21 20:03 10/18/21 20:03 10/18/21 20:03 - General well developed, well nourished, no distress - Abdomen Abdomen: soft, non tender Results - Labs 11/06/21 06:16 11/06/21 06:16 Abnormal Lab Results - Last 24 Hours (Table) 11/05/21 11/05/21 11/05/21 Range/Units 07:40 10:04 18:14 WBC (3.8-10.6) k/uL RBC (4.30-5.90) m/uL Hgb (13.0-17.5) gm/dL Hct (39.0-53.0) % RDW (11.5-15.5) % Plt Count (150-450) k/uL Neutrophils # (1.3-7.7) k/uL Neutrophils # (Manual) (1.3-7.7) k/uL Monocytes # (Manual) (0-1.0) k/uL Metamyelocytes # (Man) (0) k/uL Myelocytes # (Manual) (0) k/uL ESR (0-15) mm/hr Retic Count (0.5-2.0) % Haptoglobin (31.2-198.0) mg/dL Fibrinogen 827 H (200-500) mg/dL D-Dimer 18.64 H (<0.60) mg/L FEU Sodium 130 L (137-145) mmol/L Chloride 91 L (98-107) mmol/L BUN 59 H (9-20) mg/dL Creatinine 9.05 H* (0.66-1.25) mg/dL Total Bilirubin (0.2-1.3) mg/dL Delta Bilirubin (0.0-0.2) mg/dL Alkaline Phosphatase (38-126) U/L C-Reactive Protein (<1.0) mg/dL Albumin (3.5-5.0) g/dL IgG (700.0-1600.0) mg/dL IgA (60.0-350.0) mg/dL Crossmatch See Detail 11/05/21 11/05/21 11/05/21 Range/Units 18:14 18:14 18:14 WBC (3.8-10.6) k/uL RBC (4.30-5.90) m/uL Hgb (13.0-17.5) gm/dL Hct (39.0-53.0) % RDW (11.5-15.5) % Plt Count (150-450) k/uL Neutrophils # (1.3-7.7) k/uL Neutrophils # (Manual) (1.3-7.7) k/uL Monocytes # (Manual) (0-1.0) k/uL Metamyelocytes # (Man) (0) k/uL Myelocytes # (Manual) (0) k/uL ESR (0-15) mm/hr Retic Count 3.0 H (0.5-2.0) % Haptoglobin (31.2-198.0) mg/dL Fibrinogen (200-500) mg/dL D-Dimer (<0.60) mg/L FEU Sodium (137-145) mmol/L Chloride (98-107) mmol/L BUN (9-20) mg/dL Creatinine (0.66-1.25) mg/dL Total Bilirubin 2.0 H (0.2-1.3) mg/dL Delta Bilirubin 2.0 H (0.0-0.2) mg/dL Alkaline Phosphatase 213 H (38-126) U/L C-Reactive Protein (<1.0) mg/dL Albumin 2.8 L (3.5-5.0) g/dL IgG 2647.0 H (700.0-1600.0) mg/dL IgA 498.0 H (60.0-350.0) mg/dL Crossmatch 11/05/21 11/06/21 11/06/21 Range/Units 22:01 06:16 06:16 WBC 16.7 H (3.8-10.6) k/uL RBC 2.32 L (4.30-5.90) m/uL Hgb 6.6 L* (13.0-17.5) gm/dL Hct 20.6 L (39.0-53.0) % RDW 17.4 H (11.5-15.5) % Plt Count 742 H (150-450) k/uL Neutrophils # 13.4 H (1.3-7.7) k/uL Neutrophils # (Manual) (1.3-7.7) k/uL Monocytes # (Manual) (0-1.0) k/uL Metamyelocytes # (Man) (0) k/uL Myelocytes # (Manual) (0) k/uL ESR >140 H (0-15) mm/hr Retic Count (0.5-2.0) % Haptoglobin 259.0 H (31.2-198.0) mg/dL Fibrinogen (200-500) mg/dL D-Dimer (<0.60) mg/L FEU Sodium 130 L (137-145) mmol/L Chloride 91 L (98-107) mmol/L BUN 76 H (9-20) mg/dL Creatinine 10.49 H* (0.66-1.25) mg/dL Total Bilirubin 2.2 H (0.2-1.3) mg/dL Delta Bilirubin (0.0-0.2) mg/dL Alkaline Phosphatase 194 H (38-126) U/L C-Reactive Protein 8.0 H (<1.0) mg/dL Albumin 2.7 L (3.5-5.0) g/dL IgG (700.0-1600.0) mg/dL IgA (60.0-350.0) mg/dL Crossmatch 11/06/21 Range/Units 06:16 WBC 15.9 H (3.8-10.6) k/uL RBC 2.46 L (4.30-5.90) m/uL Hgb 6.7 L* (13.0-17.5) gm/dL Hct 21.6 L (39.0-53.0) % RDW 17.1 H (11.5-15.5) % Plt Count 733 H (150-450) k/uL Neutrophils # (1.3-7.7) k/uL Neutrophils # (Manual) 11.60 H (1.3-7.7) k/uL Monocytes # (Manual) 1.59 H (0-1.0) k/uL Metamyelocytes # (Man) 0.16 H (0) k/uL Myelocytes # (Manual) 0.16 H (0) k/uL ESR >140 H (0-15) mm/hr Retic Count (0.5-2.0) % Haptoglobin (31.2-198.0) mg/dL Fibrinogen (200-500) mg/dL D-Dimer (<0.60) mg/L FEU Sodium (137-145) mmol/L Chloride (98-107) mmol/L BUN (9-20) mg/dL Creatinine (0.66-1.25) mg/dL Total Bilirubin (0.2-1.3) mg/dL Delta Bilirubin (0.0-0.2) mg/dL Alkaline Phosphatase (38-126) U/L C-Reactive Protein (<1.0) mg/dL Albumin (3.5-5.0) g/dL IgG (700.0-1600.0) mg/dL IgA (60.0-350.0) mg/dL Crossmatch Microbiology - Last 24 Hours (Table) 11/04/21 08:09 Blood Culture - Preliminary Blood No Growth after 48 hours 11/03/21 08:27 Blood Culture - Preliminary Blood No Growth after 72 hours 11/02/21 16:25 Blood Culture - Preliminary Blood No Growth after 72 hours Diabetes panel 11/05/21 11/05/21 11/06/21 Range/Units 07:40 18:14 06:16 Sodium 130 L 130 L (137-145) mmol/L Potassium 4.7 4.9 (3.5-5.1) mmol/L Chloride 91 L 91 L (98-107) mmol/L Carbon Dioxide 26 26 (22-30) mmol/L BUN 59 H 76 H (9-20) mg/dL Creatinine 9.05 H* 10.49 H* (0.66-1.25) mg/dL Glucose 83 94 (74-99) mg/dL Calcium 8.7 8.7 (8.4-10.2) mg/dL AST 35 38 (17-59) U/L ALT 24 14 (4-49) U/L Alkaline Phosphatase 213 H 194 H (38-126) U/L Total Protein 7.3 7.3 (6.3-8.2) g/dL Albumin 2.8 L 2.7 L (3.5-5.0) g/dL Thyroid panel 11/05/21 Range/Units 18:14 TSH 2.380 (0.465-4.680) mIU/L Calcium panel 11/05/21 11/05/21 11/06/21 Range/Units 07:40 18:14 06:16 Calcium 8.7 8.7 (8.4-10.2) mg/dL Albumin 2.8 L 2.7 L (3.5-5.0) g/dL Pituitary panel 11/05/21 11/05/21 11/06/21 Range/Units 07:40 18:14 06:16 Sodium 130 L 130 L (137-145) mmol/L Potassium 4.7 4.9 (3.5-5.1) mmol/L Chloride 91 L 91 L (98-107) mmol/L Carbon Dioxide 26 26 (22-30) mmol/L BUN 59 H 76 H (9-20) mg/dL Creatinine 9.05 H* 10.49 H* (0.66-1.25) mg/dL Glucose 83 94 (74-99) mg/dL Calcium 8.7 8.7 (8.4-10.2) mg/dL TSH 2.380 (0.465-4.680) mIU/L Adrenal panel 11/05/21 11/05/21 11/06/21 Range/Units 07:40 18:14 06:16 Sodium 130 L 130 L (137-145) mmol/L Potassium 4.7 4.9 (3.5-5.1) mmol/L Chloride 91 L 91 L (98-107) mmol/L Carbon Dioxide 26 26 (22-30) mmol/L BUN 59 H 76 H (9-20) mg/dL Creatinine 9.05 H* 10.49 H* (0.66-1.25) mg/dL Glucose 83 94 (74-99) mg/dL Calcium 8.7 8.7 (8.4-10.2) mg/dL Total Bilirubin 2.0 H 2.2 H (0.2-1.3) mg/dL AST 35 38 (17-59) U/L ALT 24 14 (4-49) U/L Alkaline Phosphatase 213 H 194 H (38-126) U/L Total Protein 7.3 7.3 (6.3-8.2) g/dL Albumin 2.8 L 2.7 L (3.5-5.0) g/dL Assessment and Plan (1) Normocytic anemia Current Visit: Yes Status: Acute Code(s): D64.9 - ANEMIA, UNSPECIFIED SNOMED Code(s): 288743132 (2) Renal failure Current Visit: Yes Status: Acute Code(s): N19 - UNSPECIFIED KIDNEY FAILURE SNOMED Code(s): 69751920 (3) Septic arthritis of multiple joints Current Visit: Yes Status: Acute Code(s): M00.9 - PYOGENIC ARTHRITIS, UNSPECIFIED SNOMED Code(s): 59724611 Plan: At this point he has no significant GI symptoms. I'll order Hemoccult of stool 3. If he is positive, I'll do an EGD on him. Further recommendations to follow
--- NOTE | 2021-11-06 14:35 | P.PN ---
Progress Note - Text Progress Note Date: 11/06/21 Chief Complaint: Not feeling well This is a 26-year-old patient, follows with Dr. Travis moore. Chronic stable medical conditions include end-stage kidney disease on hemodialysis Sunday and Sunday, essential hypertension, secondary hyperparathyroidism. Patient came in because of not feeling well. Unsteady weak diet and rundown. Unsure about fever. Blood drawn at the nephrology dialysis center was positive for gram-positive cocci. IV vancomycin was given. Patient is slightly delirious. Consultation nephrology denies D was done. Appetite fair denies any respiratory or urinary symptoms. Admitted with sepsis with positive blood culture from the dialysis center, delirium. IV vancomycin started. October 20: Tired. Decreased oral intake. Dialysis catheter to be taken out today. Patient received dialysis yesterday. Discussed with patient. Tired. Repeat blood cultures from yesterday growing staph aureus. October 21: Less delirious today. Dialysis catheter has been removed yesterday. Blood cultures from here growing staph aureus. Patient not hungry. Did not eat his breakfast. Tired. Patient complaining of pain around the left hip area. I ordered Doppler ultrasound that came back to be negative. Hip x-ray was also ordered and came back to be unremarkable. Orthopedics consulted. 10/23/2021 Patient is seen and evaluated in room at bedside; patient complains of generalized pain more so in Lasix; no complaint of chest pain or shortness of breath Vital signs are reviewed; blood pressure 169/98, pulse 111 Lab review shows a sodium of 123 which is down from 126 yesterday, potassium 5.9, bicarbonate 18, BUN/creatinine of 142/13.1 Repeat blood cultures drawn yesterday are reported positive; plan was to reinsert permacath if blood cultures were negative; nephrology recommending to proceed with placement of Angel catheter and dialyze the patient today and tomorrow due to worsening hyponatremia with plans to remove catheter after dialysis; patient will have a permacath placement once her cultures turn negative with possibility of paratonia dialysis in the meantime 10/24/2021 Patient is seen in follow-up this morning currently receiving hemodialysis. Multiple medical consultations including nephrology and infectious disease following. Blood cultures and catheter tip culture showing staph aureus and awaiting for bacteremia clearance. Patient will also need replacement dialysis catheter once cleared by infectious disease. Patient is currently maintained on 1500 mL fluid restrictions and will slightly increase as patient reports he is thirsty and not getting enough intake. Patient is currently afebrile and denies any chest pain or palpitations. 10/25/2021 Patient is seen in follow-up this morning and hemoglobin was found to be 6.8 and will transfuse 1 unit of PRBC. Patient is scheduled to undergo incision and drainage with possible debridement of the left hip and left lower extremity with orthopedics today. Patient also to have dialysis catheter removed by vascular surgery. Patient continues on fluid restrictions and is currently nothing by mouth for the procedure and diuretics being held. No plans for hemodialysis today. Patient is maintained on Sunday/Sunday/Sunday schedule and will gabby nue with nephrology following closely. Patient is also maintained on IV antibiotics with infectious disease following closely and will continue. Multiple culture showing MSSA and hopeful for cultures during surgery today. She is currently afebrile and denies chest pain or shortness of breath. Patient reports left leg pain. 10/26/2021 Patient is seen in follow-up today status post incision and drainage of the left lower extremity and left hip with orthopedics in currently maintained on IV antibiotics in the form of cefazolin with anxiety following closely. Patient being transitioned to nafcillin while awaiting for finalized cultures of the deep tissue cultures that were obtained during surgery. Patient had dialysis catheter removed and waiting prior to insertion of new catheter. 2-D echo was also ordered to assess for any vegetation. Patient continues with fevers and denies any chest pain or shortness of breath. Hemoglobin was 7.1 today after 1 unit of PRBCs yesterday. WBC trending up at 15.4 and BNP is noted with a creatinine of 8.08. Recommend close monitoring of vital signs and temperature control and continue to await for cultures. Patient reports his pain is curre ntly manageable and denies any chest pain or shortness of breath. 10/27/2021 Patient is seen today and continues on IV abx with multiple medical consultations following and blood cultures have been positive and awaiting repeat blood cultures for clearance of bacteremia. ID following closely and patient also remains without a dialysis catheter at this time. Patient continues with fevers as well and is status post I&D and debridement with ortho post op day 2. Patient hemoglobin is 6.9 and ordered a unit of prbc. Will hold for now and repeat am labs as patient has also not had dialysis for the last 2 days. Creatinine is 8 and nephrology following closely. Patient is extremely weak and will consult PT/OT. Patient denies chest pain or shortness of breath. 10/28/2021 Patient evaluated today continues to have positive blood cultures and awaiting repeat blood cultures that were drawn yesterday to monitor for clearance of bacteremia. Most recent have been negative for 24 hours and will await for 72 hour clearance prior to dialysis catheter placement. Patient continues with low-grade temps of 99 this morning. Patient also maintained on nafcillin with infectious disease following. Asians potassium critically elevated at 6.1 and hemoglobin remained 6.9. WBC is elevated as well at 22 and sodium is found to be 125 with a creatinine of 11.48. Nephrology following closely and may likely need a dialysis catheter temporary for hemodialysis. Ortho following and surgical drains removed of the left lower extremity. PT consulted. 10/29/2021 Patient is seen today and afebrile and maintained on IV antibiotics with ID following. Vascular surgery to place right chest wall dialysis catheter as patient needs emergent dialysis as he has continued elevated potassium and creatinine is above 11. Patient continues with weakness and will continue with PT and advance activity as tolerated. Patient received 1 unit of blood with hemoglobin 7.7. No reports of chest pain or shortness of breath. Encouraged oral intake. Patient was seen and covered by [facility] hospitalist from October 22 through October 29 10/30/2021: Patient getting hemodialysis today. Decreased appetite. On IV nafcillin. No pain. Laying in bed. Patient in the last few days however I&D of septic arthritis including left hip left knee and left ankle. All cultures growing MSSA. 10/31/2021: Two-level good breakfast. Not hungry for lunch. On IV nafcillin. And wish to be out of bed. Patient to be changed over to Ancef at dialysis upon discharge. Hemoglobin 6.9. 1 unit of PRBC ordered. 11/01/2021: On IV nafcillin. Tachycardia. Cardiology consulted. Discussed with the patient. We will try Marinol. 11/02/2021: Remains tachycardic. Spiked a fever to 101 earlier. Discussed with ID. DEVEN ordered with cardiology. Patient started on Marinol yesterday. Feels tired. Hemoglobin 6.7. 1 unit of blood ordered. Hemodialysis today. 11/03/2021: Patient underwent DEVEN E by Dr. Moore today. 1 cm x 0.5 cm of vegetation noted on the catheter tip. Discussed with him, Dr. Mari from nephrology and Dr. Sevilla from ID. It was decided to remove the catheter after dialysis today. Patient never temporary dialysis catheter placed. Discussed with the patient. 11/04/2021: Right jugular dialysis catheter was removed by Dr. Christy yesterday. Patient has a left upper extremity radiocephalic fistula from [facility] 2020. Failure to mature. Patient somewhat disappointed because of his lengthy stay in the hospital. Discussed at length with him and his friend at the bedside. He does understand. But feels frustrated. 11/05/2021: Oral intake variable. Has been feeling depressed. Consult psychiatry. Hemoglobin 6.4. Unit of blood ordered. Likely hemolysis. No evidence of GI bleed. 11/06/2021: Not much of an appetite. Ruled femoral cath placement placement today. Plan for dialysis today and tomorrow. Seen by Dr. Pelaez from surgery to rule out a GI bleed. Hemoglobin dropped again. Another unit of blood ordered. Active Medications Acetaminophen (Acetaminophen Tab 325 Mg Tab) 650 mg PO Q4HR PRN PRN Reason: Fever and/ or Pain Last Admin: 11/04/21 19:50 Dose: 650 mg Hydrocodone Bitart/Acetaminophen (Hydrocodone/Apap 5-325mg 1 Each Tab) 1 each PO Q6HR PRN PRN Reason: Pain Last Admin: 11/06/21 09:36 Dose: 1 each Darbepoetin Luis E (Darbepoetin Luis E 40 Mcg/0.4 Ml Syringe) 40 mcg SQ Q7D CHAVA Last Admin: 11/02/21 13:26 Dose: 40 mcg Dronabinol (Dronabinol 2.5 Mg Cap) 5 mg PO AC-BID CHAVA Last Admin: 11/06/21 05:45 Dose: Not Given Enoxaparin Sodium (Enoxaparin 30 Mg/0.3 Ml Syringe) 30 mg SQ DAILY CHAVA Last Admin: 11/06/21 08:24 Dose: Not Given Nafcillin Sodium 2 gm/ (Dextrose/Water) 100 mls @ 100 mls/hr IVPB Q4H CHAVA; Protocol Last Admin: 11/06/21 09:36 Dose: 100 mls/hr Lorazepam (Lorazepam 0.5 Mg Tab) 0.5 mg PO Q6HR PRN PRN Reason: Anxiety Last Admin: 11/06/21 09:36 Dose: 0.5 mg Metoprolol Tartrate (Metoprolol Tartrate 25 Mg Tab) 25 mg PO BID [facility] Last Admin: 11/05/21 20:09 Dose: 25 mg Multivitamins (Multivitamins, Thera 1 Each Tab) 1 each PO DAILY [facility] Last Admin: 11/05/21 10:25 Dose: 1 each Naloxone HCl (Naloxone 0.4 Mg/Ml 1 Ml Vial) 0.2 mg IV Q2M PRN PRN Reason: Opioid Reversal Sevelamer Carbonate (Sevelamer 800 Mg Tab) 1,600 mg PO TID-W/MEALS [facility] Last Admin: 11/06/21 05:45 Dose: Not Given Thiamine HCl (Thiamine 100 Mg Tab) 100 mg PO BID-W/MEALS [facility] Last Admin: 11/06/21 05:45 Dose: Not Given Torsemide (Torsemide 20 Mg Tab) 80 mg PO DAILY [facility] Last Admin: 11/05/21 10:25 Dose: 80 mg Past medical history to include: End-stage kidney disease on hemodialysis, anemia of CK D, minimal bone disease Social history: Lives with his mother. Smokes about 5 bowls of marijuana daily. No alcohol or cigarette smoking. Family history: Diabetes, COPD, A. fib, CHF Physical examination: VITAL SIGNS: 98.3, 98, 16, 143 with 76, 95% room air GENERAL: Laying in bed, awake EYES: Pupils equal. Conjunctiva normal. HEENT: External appearance of nose and ears normal, oral cavity grossly normal. NECK: JVD not raised; masses not palpable. HEART: First and second heart sounds are normal; no edema. LUNGS: Respiratory rate normal; clear to auscultation. ABDOMEN: Soft, nontender, liver spleen not palpable, no masses palpable. PSYCH: AO 3, mood and affect, feels low MUSCULOSKELETAL:No Clubbing/cyanosis;muscles-grossly intact INVESTIGATIONS, reviewed in the clinical context: November 06: WBC 15.9 hemoglobin 6.7 platelets 733 potassium 4.9 creatinine 10.49. Haptoglobin 259 November 05: WBC 17.4 hemoglobin 6.4 potassium 4.7 creatinine 9.05 November 03: WBC 18.7, hemoglobin 7.1 platelets and 5 to potassium 4.2 creatinine 7.73 DEVEN [November 03]: 1 cm x 0.5 cm vegetation on catheter tip November 02: White count 8.2 hemoglobin 6.7 platelets 757 October 31: WBC 19 hemoglobin 6.9 potassium 4.5 creatinine 8.15 October 30: White count 19.8 hemoglobin 7.1 platelet 774 sodium 126 potassium 5.4 creatinine 9.96 October 21: Sodium 127 potassium 5.4 twice a day 2 creatinine 9.1 Urine drug screen: Positive for opiates, benzodiazepine, marijuana White count 12.4 hemoglobin 9 platelets 170 sodium 126 potassium 5.3 rate 80 creatinine 10.9 phosphorus 5.6 and magnesium 2.8 bilirubin 1.8 EKG tracing personally reviewed by me-sinus tachycardia rate of 1:30. Right bundle branch block pattern. Nonspecific ST segment changes. Assessment and plan: -Sepsis with blood cultures positive for MSSA. done at the dialysis center and from October 19.: Slow to respond IV nafcillin Dialysis catheter removed October 20. Blood culture negative on October 27. DEVEN on November 03 showing vegetation on catheter. Right internal jugular Dialysis catheter removed November 03. Right femoral dialysis catheter placed on November 06 -Polyarticular septic arthritis including the left hip, left knee, left ankle with I&D of all the joints. IV nafcillin -Acute delirium from sepsis: Improved Treat underlying infection -End-stage kidney disease on hemodialysis Sunday and Sunday On dialysis schedule -Anemia of chronic kidney disease, dropped hemoglobin to 6.7. Follow H&H. Patient received 3 units blood. -Acute hemolysis from sepsis causing recurrent drop in hemoglobin Patient today has been ordered 6 unit of blood -mineral bone disease/CK D Supplements -Hyperphosphatemia secondary to CK D Renvela -Hypervolemic hyponatremia: Slow to respond Encourage oral intake. Fluid to be taken off at dialysis. -Anorexia multifactorial Marinol 5 mg twice a day -Sinus tachycardia likely combination of deconditioning and infection Right femoral dialysis catheter placed today. For hemodialysis today and tomorrow. Until unit of blood ordered. Hemolysis versus GI bleed. No outward evidence of GI bleed. Surgery consulted.
[2021-11-06] MEDS: TORSEMIDE 20 MG TAB PO SCH (17:25)
[2021-11-06] MEDS: METOPROLOL TARTRATE 25 MG TAB PO SCH ×2 (17:25→20:36)
[2021-11-06] MEDS: MULTIVITAMINS, THERA 1 EACH TAB PO SCH (17:25)
[2021-11-06] MEDS: Acetaminophen-Codeine 300-30mg TAB PO PRN (21:24)
[2021-11-07] MEDS: HYDROcodone/APAP 5-325MG 1 EACH TAB PO PRN (00:33)
[2021-11-07] MEDS: LORazepam 0.5 MG TAB PO PRN (00:33)
[2021-11-07] MEDS: NAFCILLIN 2 GM in DEXTROSE 5% IN WATER 100 ML IVPB SCH ×12 (02:30→21:40)
[2021-11-07] MEDS: THIAMINE 100 MG TAB PO SCH ×2 (07:06→18:38)
[2021-11-07] MEDS: SEVELAMER 800 MG TAB PO SCH ×3 (07:06→18:38)
[2021-11-07 07:24] LABS: Erythrocyte Sedimentation Rate >140 mm/hr (0-15)
[2021-11-07 07:45] LABS: Anisocytosis Slight; Basophils # (A) 0.1 k/uL (0-0.2); Basophils % (A) 1 %; Eosinophils # (A) 0.3 k/uL (0-0.7); Eosinophils % (A) 2 %; HCT 22.4 % (39.0-53.0); HGB 7.3 gm/dL (13.0-17.5); Hypochromasia Slight; Lymphocytes # (A) 1.4 k/uL (1.0-4.8); Lymphocytes % (A) 10 %; MCH 28.5 pg (25.0-35.0); MCHC 32.5 g/dL (31.0-37.0); MCV 87.9 fL (80.0-100.0); Mean Platelet Volume 7.1; Monocytes # (A) 0.8 k/uL (0-1.0); Monocytes % (A) 6 %; Neutrophils # (A) 10.7 k/uL (1.3-7.7); Neutrophils % (A) 80 %; Platelet Count 822 k/uL (150-450); RBC 2.55 m/uL (4.30-5.90); RDW 16.7 % (11.5-15.5); WBC 13.5 k/uL (3.8-10.6)
[2021-11-07 11:57] LABS: Free Kappa Lt Chain Qnt, Serum 111.15 mg/dL (0.33-1.94); Free Lambda Lt Chain Qnt, Seru 60.47 mg/dL (0.57-2.63)
--- NOTE | 2021-11-07 13:51 | US ---
EXAMINATION TYPE: US extremity nonvasc mass LT DATE OF EXAM: 11/07/2021 COMPARISON: MRI 10/25/21 CLINICAL HISTORY: Lt calf hematoma. Lt calf hematoma A nonvascular complex mass was seen at left medial calf measuring 10.6 x 5.8 x 3.5 cm. This was seen on a MRI 10/25/21. Edema noted in left knee. IMPRESSION: There is a nonvascular complex mass measuring 10.6 cm corresponding to the MRI abnormali ty previously discussed differential diagnosis would include hematoma or complex fluid collection. In fectious etiology and neoplastic process is not entirely excluded
[2021-11-07] MEDS: TORSEMIDE 20 MG TAB PO SCH (14:16)
[2021-11-07] MEDS: METOPROLOL TARTRATE 25 MG TAB PO SCH ×2 (14:16→21:40)
[2021-11-07] MEDS: MULTIVITAMINS, THERA 1 EACH TAB PO SCH (14:16)
[2021-11-07] MEDS: ENOXAPARIN 30 MG/0.3 ML SYRINGE SQ SCH (14:17)
--- NOTE | 2021-11-07 14:46 | P.PN ---
Progress Note - Text Progress Note Date: 11/07/21 Chief Complaint: Not feeling well This is a 26-year-old patient, follows with Dr. Travis moore. Chronic stable medical conditions include end-stage kidney disease on hemodialysis Sunday and Sunday, essential hypertension, secondary hyperparathyroidism. Patient came in because of not feeling well. Unsteady weak diet and rundown. Unsure about fever. Blood drawn at the nephrology dialysis center was positive for gram-positive cocci. IV vancomycin was given. Patient is slightly delirious. Consultation nephrology denies D was done. Appetite fair denies any respiratory or urinary symptoms. Admitted with sepsis with positive blood culture from the dialysis center, delirium. IV vancomycin started. October 20: Tired. Decreased oral intake. Dialysis catheter to be taken out today. Patient received dialysis yesterday. Discussed with patient. Tired. Repeat blood cultures from yesterday growing staph aureus. October 21: Less delirious today. Dialysis catheter has been removed yesterday. Blood cultures from here growing staph aureus. Patient not hungry. Did not eat his breakfast. Tired. Patient complaining of pain around the left hip area. I ordered Doppler ultrasound that came back to be negative. Hip x-ray was also ordered and came back to be unremarkable. Orthopedics consulted. 10/23/2021 Patient is seen and evaluated in room at bedside; patient complains of generalized pain more so in Lasix; no complaint of chest pain or shortness of breath Vital signs are reviewed; blood pressure 169/98, pulse 111 Lab review shows a sodium of 123 which is down from 126 yesterday, potassium 5.9, bicarbonate 18, BUN/creatinine of 142/13.1 Repeat blood cultures drawn yesterday are reported positive; plan was to reinsert permacath if blood cultures were negative; nephrology recommending to proceed with placement of Angel catheter and dialyze the patient today and tomorrow due to worsening hyponatremia with plans to remove catheter after dialysis; patient will have a permacath placement once her cultures turn negative with possibility of paratonia dialysis in the meantime 10/24/2021 Patient is seen in follow-up this morning currently receiving hemodialysis. Multiple medical consultations including nephrology and infectious disease following. Blood cultures and catheter tip culture showing staph aureus and awaiting for bacteremia clearance. Patient will also need replacement dialysis catheter once cleared by infectious disease. Patient is currently maintained on 1500 mL fluid restrictions and will slightly increase as patient reports he is thirsty and not getting enough intake. Patient is currently afebrile and denies any chest pain or palpitations. 10/25/2021 Patient is seen in follow-up this morning and hemoglobin was found to be 6.8 and will transfuse 1 unit of PRBC. Patient is scheduled to undergo incision and drainage with possible debridement of the left hip and left lower extremity with orthopedics today. Patient also to have dialysis catheter removed by vascular surgery. Patient continues on fluid restrictions and is currently nothing by mouth for the procedure and diuretics being held. No plans for hemodialysis today. Patient is maintained on Sunday/Sunday/Sunday schedule and will gabby nue with nephrology following closely. Patient is also maintained on IV antibiotics with infectious disease following closely and will continue. Multiple culture showing MSSA and hopeful for cultures during surgery today. She is currently afebrile and denies chest pain or shortness of breath. Patient reports left leg pain. 10/26/2021 Patient is seen in follow-up today status post incision and drainage of the left lower extremity and left hip with orthopedics in currently maintained on IV antibiotics in the form of cefazolin with anxiety following closely. Patient being transitioned to nafcillin while awaiting for finalized cultures of the deep tissue cultures that were obtained during surgery. Patient had dialysis catheter removed and waiting prior to insertion of new catheter. 2-D echo was also ordered to assess for any vegetation. Patient continues with fevers and denies any chest pain or shortness of breath. Hemoglobin was 7.1 today after 1 unit of PRBCs yesterday. WBC trending up at 15.4 and BNP is noted with a creatinine of 8.08. Recommend close monitoring of vital signs and temperature control and continue to await for cultures. Patient reports his pain is curre ntly manageable and denies any chest pain or shortness of breath. 10/27/2021 Patient is seen today and continues on IV abx with multiple medical consultations following and blood cultures have been positive and awaiting repeat blood cultures for clearance of bacteremia. ID following closely and patient also remains without a dialysis catheter at this time. Patient continues with fevers as well and is status post I&D and debridement with ortho post op day 2. Patient hemoglobin is 6.9 and ordered a unit of prbc. Will hold for now and repeat am labs as patient has also not had dialysis for the last 2 days. Creatinine is 8 and nephrology following closely. Patient is extremely weak and will consult PT/OT. Patient denies chest pain or shortness of breath. 10/28/2021 Patient evaluated today continues to have positive blood cultures and awaiting repeat blood cultures that were drawn yesterday to monitor for clearance of bacteremia. Most recent have been negative for 24 hours and will await for 72 hour clearance prior to dialysis catheter placement. Patient continues with low-grade temps of 99 this morning. Patient also maintained on nafcillin with infectious disease following. Asians potassium critically elevated at 6.1 and hemoglobin remained 6.9. WBC is elevated as well at 22 and sodium is found to be 125 with a creatinine of 11.48. Nephrology following closely and may likely need a dialysis catheter temporary for hemodialysis. Ortho following and surgical drains removed of the left lower extremity. PT consulted. 10/29/2021 Patient is seen today and afebrile and maintained on IV antibiotics with ID following. Vascular surgery to place right chest wall dialysis catheter as patient needs emergent dialysis as he has continued elevated potassium and creatinine is above 11. Patient continues with weakness and will continue with PT and advance activity as tolerated. Patient received 1 unit of blood with hemoglobin 7.7. No reports of chest pain or shortness of breath. Encouraged oral intake. Patient was seen and covered by [facility] hospitalist from October 22 through October 29 10/30/2021: Patient getting hemodialysis today. Decreased appetite. On IV nafcillin. No pain. Laying in bed. Patient in the last few days however I&D of septic arthritis including left hip left knee and left ankle. All cultures growing MSSA. 10/31/2021: Two-level good breakfast. Not hungry for lunch. On IV nafcillin. And wish to be out of bed. Patient to be changed over to Ancef at dialysis upon discharge. Hemoglobin 6.9. 1 unit of PRBC ordered. 11/01/2021: On IV nafcillin. Tachycardia. Cardiology consulted. Discussed with the patient. We will try Marinol. 11/02/2021: Remains tachycardic. Spiked a fever to 101 earlier. Discussed with ID. DEVEN ordered with cardiology. Patient started on Marinol yesterday. Feels tired. Hemoglobin 6.7. 1 unit of blood ordered. Hemodialysis today. 11/03/2021: Patient underwent DEVEN E by Dr. Moore today. 1 cm x 0.5 cm of vegetation noted on the catheter tip. Discussed with him, Dr. Mari from nephrology and Dr. Sevilla from ID. It was decided to remove the catheter after dialysis today. Patient never temporary dialysis catheter placed. Discussed with the patient. 11/04/2021: Right jugular dialysis catheter was removed by Dr. Christy yesterday. Patient has a left upper extremity radiocephalic fistula from [facility] 2020. Failure to mature. Patient somewhat disappointed because of his lengthy stay in the hospital. Discussed at length with him and his friend at the bedside. He does understand. But feels frustrated. 11/05/2021: Oral intake variable. Has been feeling depressed. Consult psychiatry. Hemoglobin 6.4. Unit of blood ordered. Likely hemolysis. No evidence of GI bleed. 11/06/2021: Not much of an appetite. tunneled femoral cath placement placement today. Plan for dialysis today and tomorrow. Seen by Dr. Pelaez from surgery to rule out a GI bleed. Hemoglobin dropped again. Another unit of blood ordered. 11/07/2021: No fever. Decreased oral intake. Hemodialysis today. Will change Marinol to Megace. Has some swelling of the left knee. We will get ultrasound to rule out any significant hematoma. Active Medications Acetaminophen (Acetaminophen Tab 325 Mg Tab) 650 mg PO Q4HR PRN PRN Reason: Fever and/ or Pain Last Admin: 11/04/21 19:50 Dose: 650 mg Acetaminophen/Codeine Phosphate (Acetaminophen-Codeine 300-30mg Tab) 1 each PO Q6HR PRN PRN Reason: Pain Last Admin: 11/06/21 21:24 Dose: 1 each Hydrocodone Bitart/Acetaminophen (Hydrocodone/Apap 5-325mg 1 Each Tab) 1 each PO Q6HR PRN PRN Reason: Pain Last Admin: 11/07/21 00:33 Dose: 1 each Darbepoetin Luis E (Darbepoetin Luis E 40 Mcg/0.4 Ml Syringe) 40 mcg SQ Q7D CHAVA Last Admin: 11/02/21 13:26 Dose: 40 mcg Dronabinol (Dronabinol 2.5 Mg Cap) 5 mg PO AC-BID [facility] Last Admin: 11/07/21 14:22 Dose: Not Given Enoxaparin Sodium (Enoxaparin 30 Mg/0.3 Ml Syringe) 30 mg SQ DAILY [facility] Last Admin: 11/07/21 14:17 Dose: 30 mg Nafcillin Sodium 2 gm/ (Dextrose/Water) 100 mls @ 100 mls/hr IVPB Q4H [facility]; Protocol Last Admin: 11/07/21 14:16 Dose: 100 mls/hr Lorazepam (Lorazepam 0.5 Mg Tab) 0.5 mg PO Q6HR PRN PRN Reason: Anxiety Last Admin: 11/07/21 00:33 Dose: 0.5 mg Metoprolol Tartrate (Metoprolol Tartrate 25 Mg Tab) 25 mg PO BID [facility] Last Admin: 11/07/21 14:16 Dose: 25 mg Multivitamins (Multivitamins, Thera 1 Each Tab) 1 each PO DAILY [facility] Last Admin: 11/07/21 14:16 Dose: 1 each Naloxone HCl (Naloxone 0.4 Mg/Ml 1 Ml Vial) 0.2 mg IV Q2M PRN PRN Reason: Opioid Reversal Sevelamer Carbonate (Sevelamer 800 Mg Tab) 1,600 mg PO TID-W/MEALS [facility] Last Admin: 11/07/21 14:16 Dose: 1,600 mg Thiamine HCl (Thiamine 100 Mg Tab) 100 mg PO BID-W/MEALS [facility] Last Admin: 11/07/21 07:06 Dose: 100 mg Torsemide (Torsemide 20 Mg Tab) 80 mg PO DAILY [facility] Last Admin: 11/07/21 14:16 Dose: 80 mg Past medical history to include: End-stage kidney disease on hemodialysis, anemia of CK D, minimal bone disease Social history: Lives with his mother. Smokes about 5 bowls of marijuana daily. No alcohol or cigarette smoking. Family history: Diabetes, COPD, A. fib, CHF Physical examination: VITAL SIGNS: 98.3, 106, 16, 150 01/07/1998, 96% room air GENERAL: Laying in bed, awake EYES: Pupils equal. Conjunctiva normal. HEENT: External appearance of nose and ears normal, oral cavity grossly normal. NECK: JVD not raised; masses not palpable. HEART: First and second heart sounds are normal; no edema. LUNGS: Respiratory rate normal; clear to auscultation. ABDOMEN: Soft, nontender, liver spleen not palpable, no masses palpable. PSYCH: AO 3, mood and affect, feels low MUSCULOSKELETAL:No Clubbing/cyanosis;muscles-grossly intact. Some swelling anteriorly to left knee INVESTIGATIONS, reviewed in the clinical context: Ultrasound left knee: Edema of the left knee. November 06: WBC 15.9 hemoglobin 6.7 platelets 733 potassium 4.9 creatinine 10.49. Haptoglobin 259 November 05: WBC 17.4 hemoglobin 6.4 potassium 4.7 creatinine 9.05 November 03: WBC 18.7, hemoglobin 7.1 platelets and 5 to potassium 4.2 creatinine 7.73 DEVEN [November 03]: 1 cm x 0.5 cm vegetation on catheter tip November 02: White count 8.2 hemoglobin 6.7 platelets 757 October 31: WBC 19 hemoglobin 6.9 potassium 4.5 creatinine 8.15 October 30: White count 19.8 hemoglobin 7.1 platelet 774 sodium 126 potassium 5.4 creatinine 9.96 October 21: Sodium 127 potassium 5.4 twice a day 2 creatinine 9.1 Urine drug screen: Positive for opiates, benzodiazepine, marijuana White count 12.4 hemoglobin 9 platelets 170 sodium 126 potassium 5.3 rate 80 creatinine 10.9 phosphorus 5.6 and magnesium 2.8 bilirubin 1.8 EKG tracing personally reviewed by me-sinus tachycardia rate of 1:30. Right bundle branch block pattern. Nonspecific ST segment changes. Assessment and plan: -Sepsis with blood cultures positive for MSSA. done at the dialysis center and from October 19.: Slow to respond IV nafcillin Dialysis catheter removed October 20. Blood culture negative on October 27. DEVEN on November 03 showing vegetation on catheter. Right internal jugular Dialysis catheter removed November 03. Tunneled Right femoral dialysis catheter placed on November 06 -Polyarticular septic arthritis including the left hip, left knee, left ankle with I&D of all the joints. IV nafcillin -Acute delirium from sepsis: Improved Treat underlying infection -End-stage kidney disease on hemodialysis Sunday and Sunday On dialysis schedule -Anemia of chronic kidney disease, dropped hemoglobin to 6.7. Follow H&H. Patient received 3 units blood. -Acute hemolysis from sepsis causing recurrent drop in hemoglobin Patient today has been ordered 6 unit of blood -mineral bone disease/CK D Supplements -Hyperphosphatemia secondary to CK D Renvela -Hypervolemic hyponatremia: Slow to respond Encourage oral intake. Fluid to be taken off at dialysis. -Anorexia multifactorial Marinol 5 mg twice a day -Sinus tachycardia likely combination of deconditioning and infection Hemodialysis today. Decreased appetite. Change Marinol over to Megace. Cultures remain negative. Left knee ultrasound showing some edema. Discussed with Dr. Neves from nephrology. Time spent about 40 minutes with over 25 minutes of discussion. Also discussed with patient.
--- NOTE | 2021-11-07 15:46 | P.PN ---
Progress Note - Text Progress Note Date: 11/07/21 Patient has not had any GI bleeding. Hemoccult is still pending. EGD if Hemoccult is positive.
--- NOTE | 2021-11-07 15:50 | P.PN ---
Subjective Progress Note Date: 11/07/21 Hemoglobin stable today 7.3, no need of transfusion Objective - Vital Signs Vital signs: Vital Signs Temp 98.3 F 11/07/21 12:00 Pulse 106 H 11/07/21 12:00 Resp 16 11/07/21 12:00 BP 159/98 11/07/21 12:00 Pulse Ox 96 11/07/21 12:00 FiO2 Intake & Output 11/06/21 11/07/21 11/07/21 18:59 06:59 18:59 Intake Total 710 460 120 Output Total 2000 0 Balance -1291 460 120 Intake: IV 100 Oral 460 120 Blood Product 310 Rc As-1 Unit 310 [id number] Hemodialysis 300 Output: Urine 0 Stool 1 Hemodialysis 1999 Other: Voiding Method Urinal Urinal Urinal # Voids 0 - Exam - Constitutional General appearance: cooperative - EENT Eyes: EOMI ENT: NA/AT - Neck Neck: normal ROM - Respiratory Respiratory: bilateral: diminished - Cardiovascular Rhythm: regularly irregular - Gastrointestinal General gastrointestinal: soft - Integumentary Integumentary: pale - Neurologic Neurologic: CNII-XII intact - Musculoskeletal Musculoskeletal: generalized weakness - Psychiatric Psychiatric: A&O x's 3 - Labs CBC & Chem 7: 11/07/21 07:01 11/06/21 06:16 Labs: Abnormal Lab Results - Last 24 Hours (Table) 11/05/21 11/05/21 11/06/21 Range/Units 10:04 18:14 06:16 WBC (3.8-10.6) k/uL RBC (4.30-5.90) m/uL Hgb (13.0-17.5) gm/dL Hct (39.0-53.0) % RDW (11.5-15.5) % Plt Count (150-450) k/uL Neutrophils # (1.3-7.7) k/uL ESR >140 H (0-15) mm/hr Free [place] LC, Quant 111.15 H (0.33-1.94) mg/dL Free Lambda LC, Quant 60.47 H (0.57-2.63) mg/dL Crossmatch See Detail 11/07/21 Range/Units 07:01 WBC 13.5 H (3.8-10.6) k/uL RBC 2.55 L (4.30-5.90) m/uL Hgb 7.3 L (13.0-17.5) gm/dL Hct 22.4 L (39.0-53.0) % RDW 16.7 H (11.5-15.5) % Plt Count 822 H (150-450) k/uL Neutrophils # 10.7 H (1.3-7.7) k/uL ESR (0-15) mm/hr Free [place] LC, Quant (0.33-1.94) mg/dL Free Lambda LC, Quant (0.57-2.63) mg/dL Crossmatch Microbiology - Last 24 Hours (Table) 11/04/21 08:09 Blood Culture - Preliminary Blood No Growth after 72 hours 11/03/21 15:47 Catheter Tip Culture - Final Catheter Tip 11/03/21 08:27 Blood Culture - Preliminary Blood No Growth after 96 hours 11/02/21 16:25 Blood Culture - Preliminary Blood No Growth after 96 hours Assessment and Plan (1) Renal failure Narrative/Plan: Defer increased dosage of Epogen to nephrology Current Visit: Yes Status: Acute Code(s): N19 - UNSPECIFIED KIDNEY FAILURE SNOMED Code(s): 18122901 (2) Septic arthritis of multiple joints Narrative/Plan: - COncern for compartment or recurrent edema and bleeding in joints, given thrombocytosis starting 10/27 and has progressed since then, consider [id number] of prior affected joints for compartment versus hematoma. - Monitor joints and assess closely daily for evidence of potential hematoma Current Visit: Yes Status: Acute Code(s): M00.9 - PYOGENIC ARTHRITIS, UNSPECIFIED SNOMED Code(s): 84920773 (3) Septic joint of left knee joint Current Visit: Yes Status: Acute Code(s): M00.9 - PYOGENIC ARTHRITIS, UNSPECIFIED SNOMED Code(s): 337649699 (4) MSSA bacteremia Current Visit: No Status: Acute Code(s): R78.81 - BACTEREMIA; B95.61 - METHICILLIN SUSCEP STAPH INFCT CAUSING DIS CLASSD [id number] SNOMED Code(s): 951833853 (5) Positive blood culture Current Visit: No Status: Acute Code(s): R78.81 - BACTEREMIA SNOMED Code(s): 850227248 (6) Normocytic anemia Narrative/Plan: This is likely due to severe sepsis, bacteremia on top of ESRD and actute on chronic inflammation - No evidence of Hemolysis labs and monoclonal assessed - Will review smear for fragmented cells - COnsider bleeding in areas of prior edema, hematoma, joints. Will await full work-up to result and in interim transfuse <7 Current Visit: Yes Status: Acute Code(s): D64.9 - ANEMIA, UNSPECIFIED SNOMED Code(s): 775632264
[2021-11-07] MEDS: Acetaminophen-Codeine 300-30mg TAB PO PRN (20:17)
[2021-11-07] MEDS: ACETAMINOPHEN TAB 325 MG TAB PO PRN (20:20)
[2021-11-08] MEDS: NAFCILLIN 2 GM in DEXTROSE 5% IN WATER 100 ML IVPB SCH ×12 (02:50→21:38)
[2021-11-08] MEDS: SEVELAMER 800 MG TAB PO SCH ×3 (06:43→17:07)
[2021-11-08] MEDS: THIAMINE 100 MG TAB PO SCH ×2 (06:44→17:07)
--- NOTE | 2021-11-08 07:37 | P.PN ---
Subjective Progress Note Date: 11/06/21 Principal diagnosis: Bacteremia Patient is a 26 year old male with a past medical history significant for end-stage renal disease on hemodialysis presented to hospital with sepsis and bacteremia secondary to dialysis catheter infection which was removed the evening of 10/20/2021. Patient is status post I and D of the left knee and hip and ankle area completed 10/25/2021, patient is status post new permacatheter placement on 10/29/2021 as a blood culture from 10/26/2021 were negative, the patient is status post DEVEN completed with no evidence of endocarditis however did show mobile mass attached to the dialysis catheter which has been removed 11/03/2021, the patient did have a dialysis cath placement in the right groin as of 11/06/2021 On today's evaluation that is 11/06/2021, the patient is afebrile this morning , the patient denies chest pain shortness of breath or cough , the patient denies abdominal pain and no diarrhea, patient has any worsening pain to the left knee as well as the ankle area Objective - Vital Signs Vital signs: Vital Signs Temp 98.3 F 11/06/21 16:00 Pulse 104 H 11/06/21 16:28 Resp 18 11/06/21 16:28 BP 150/88 11/06/21 16:28 Pulse Ox 99 11/06/21 16:00 FiO2 Intake & Output 11/05/21 11/06/21 11/06/21 18:59 06:59 18:59 Intake Total 0 310 710 Output Total 2 2 2000 Balance -2 308 -1291 Intake: IV 100 Oral 0 Blood Product 0 310 310 Rc As-1 Unit 0 310 [id number] Rc As-1 Unit 310 [id number] Hemodialysis 300 Output: Stool 2 2 1 Hemodialysis 1999 Other: Voiding Method Urinal Urinal Urinal - Exam GENERAL DESCRIPTION: Young male lying in bed in no distress RESPIRATORY SYSTEM: Unlabored breathing , decreased breath sounds at bases HEART: S1 S2 regular rate and rhythm , ABDOMEN: Soft , no tenderness EXTREMITIES: No edema feet - Labs CBC & Chem 7: 11/07/21 07:01 11/06/21 06:16 Labs: Abnormal Lab Results - Last 24 Hours (Table) 11/05/21 11/05/21 11/05/21 Range/Units 10:04 18:14 18:14 WBC (3.8-10.6) k/uL RBC (4.30-5.90) m/uL Hgb (13.0-17.5) gm/dL Hct (39.0-53.0) % RDW (11.5-15.5) % Plt Count (150-450) k/uL Neutrophils # (1.3-7.7) k/uL Neutrophils # (Manual) (1.3-7.7) k/uL Monocytes # (Manual) (0-1.0) k/uL Metamyelocytes # (Man) (0) k/uL Myelocytes # (Manual) (0) k/uL ESR (0-15) mm/hr Retic Count (0.5-2.0) % Haptoglobin (31.2-198.0) mg/dL Fibrinogen 827 H (200-500) mg/dL D-Dimer 18.64 H (<0.60) mg/L FEU Sodium (137-145) mmol/L Chloride (98-107) mmol/L BUN (9-20) mg/dL Creatinine (0.66-1.25) mg/dL Total Bilirubin 2.0 H (0.2-1.3) mg/dL Delta Bilirubin 2.0 H (0.0-0.2) mg/dL Alkaline Phosphatase 213 H (38-126) U/L C-Reactive Protein (<1.0) mg/dL Albumin 2.8 L (3.5-5.0) g/dL IgG (700.0-1600.0) mg/dL IgA (60.0-350.0) mg/dL Crossmatch See Detail 11/05/21 11/05/21 11/05/21 Range/Units 18:14 18:14 22:01 WBC 16.7 H (3.8-10.6) k/uL RBC 2.32 L (4.30-5.90) m/uL Hgb 6.6 L* (13.0-17.5) gm/dL Hct 20.6 L (39.0-53.0) % RDW 17.4 H (11.5-15.5) % Plt Count 742 H (150-450) k/uL Neutrophils # 13.4 H (1.3-7.7) k/uL Neutrophils # (Manual) (1.3-7.7) k/uL Monocytes # (Manual) (0-1.0) k/uL Metamyelocytes # (Man) (0) k/uL Myelocytes # (Manual) (0) k/uL ESR >140 H (0-15) mm/hr Retic Count 3.0 H (0.5-2.0) % Haptoglobin (31.2-198.0) mg/dL Fibrinogen (200-500) mg/dL D-Dimer (<0.60) mg/L FEU Sodium (137-145) mmol/L Chloride (98-107) mmol/L BUN (9-20) mg/dL Creatinine (0.66-1.25) mg/dL Total Bilirubin (0.2-1.3) mg/dL Delta Bilirubin (0.0-0.2) mg/dL Alkaline Phosphatase (38-126) U/L C-Reactive Protein (<1.0) mg/dL Albumin (3.5-5.0) g/dL IgG 2647.0 H (700.0-1600.0) mg/dL IgA 498.0 H (60.0-350.0) mg/dL Crossmatch 11/06/21 11/06/21 11/06/21 Range/Units 06:16 06:16 06:16 WBC 15.9 H (3.8-10.6) k/uL RBC 2.46 L (4.30-5.90) m/uL Hgb 6.7 L* (13.0-17.5) gm/dL Hct 21.6 L (39.0-53.0) % RDW 17.1 H (11.5-15.5) % Plt Count 733 H (150-450) k/uL Neutrophils # (1.3-7.7) k/uL Neutrophils # (Manual) 11.60 H (1.3-7.7) k/uL Monocytes # (Manual) 1.59 H (0-1.0) k/uL Metamyelocytes # (Man) 0.16 H (0) k/uL Myelocytes # (Manual) 0.16 H (0) k/uL ESR >140 H (0-15) mm/hr Retic Count (0.5-2.0) % Haptoglobin 259.0 H (31.2-198.0) mg/dL Fibrinogen (200-500) mg/dL D-Dimer (<0.60) mg/L FEU Sodium 130 L (137-145) mmol/L Chloride 91 L (98-107) mmol/L BUN 76 H (9-20) mg/dL Creatinine 10.49 H* (0.66-1.25) mg/dL Total Bilirubin 2.2 H (0.2-1.3) mg/dL Delta Bilirubin (0.0-0.2) mg/dL Alkaline Phosphatase 194 H (38-126) U/L C-Reactive Protein 8.0 H (<1.0) mg/dL Albumin 2.7 L (3.5-5.0) g/dL IgG (700.0-1600.0) mg/dL IgA (60.0-350.0) mg/dL Crossmatch Microbiology - Last 24 Hours (Table) 11/04/21 08:09 Blood Culture - Preliminary Blood No Growth after 48 hours 11/03/21 08:27 Blood Culture - Preliminary Blood No Growth after 72 hours 11/02/21 16:25 Blood Culture - Preliminary Blood No Growth after 72 hours Assessment and Plan (1) Positive blood culture Current Visit: No Status: Acute Code(s): R78.81 - BACTEREMIA SNOMED Code(s): 929962666 Plan: 1patient presented to hospital with sepsis source is likely dialysis catheter infection in this patient who did have a staphylococcal bacteremia which has been finalized as MSSA 2the patient dialysis catheter has been removed and tip has been sent for the culture which came back positive with MSSA. 3patient is status post I&D of the left hip and ankle in the area, cultures from the knee and ankle positive for MSSA 4patient did have persistent bacteremia echocardiogram did not show any vegetation 5patient blood culture 10/26/21 and 10/27/2021 were negative and patient was cleared to get his dialysis catheter which was placed on 10/29/2021, patient subsequently did have a new fever which is slightly concerning also have a drop in hemoglobin with a question of possible hematoma, patient did undergo DEVEN with mobile vegetation attached to the dialysis catheter which was just placed 5 days ago and the patient was not bacteremic for more than 72 hour before the catheter was placed, dialysis catheter was discontinued on 11/03/2021, patient did have blood culture repeated on 11/02/2021, 11/03/2021, 11/04/2021 and has been negative , catheter tip culture negative as well, patient did got the groin dialysis catheter as of 11/06/2021 6- patient will continue with Naficillin Time with Patient: Less than 30
--- NOTE | 2021-11-08 07:46 | P.PN ---
Subjective Progress Note Date: 11/07/21 Principal diagnosis: Bacteremia Patient is a 26 year old male with a past medical history significant for end-stage renal disease on hemodialysis presented to hospital with sepsis and bacteremia secondary to dialysis catheter infection which was removed the evening of 10/20/2021. Patient is status post I and D of the left knee and hip and ankle area completed 10/25/2021, patient is status post new permacatheter placement on 10/29/2021 as a blood culture from 10/26/2021 were negative, the patient is status post DEVEN completed with no evidence of endocarditis however did show mobile mass attached to the dialysis catheter which has been removed 11/03/2021, the patient did have a dialysis cath placement in the right groin as of 11/06/2021 On today's evaluation that is 11/07/2021, the patient remains nanette afebrile , the patient is breathing comfortably on room air , The patient denies having any chest pain shortness of breath or cough no nausea no vomiting no abdominal pain pain to the left knee and ankle area is currently controlled Objective - Vital Signs Vital signs: Vital Signs Temp 98.3 F 11/07/21 12:00 Pulse 106 H 11/07/21 12:00 Resp 16 11/07/21 12:00 BP 153/102 11/07/21 13:56 Pulse Ox 96 11/07/21 12:00 FiO2 Intake & Output 11/06/21 11/07/21 11/07/21 18:59 06:59 18:59 Intake Total 710 460 120 Output Total 2000 0 Balance -1291 460 120 Intake: IV 100 Oral 460 120 Blood Product 310 Rc As-1 Unit 310 [id number] Hemodialysis 300 Output: Urine 0 Stool 1 Hemodialysis 1999 Other: Voiding Method Urinal Urinal Urinal # Voids 0 - Labs CBC & Chem 7: 11/07/21 07:01 11/06/21 06:16 Labs: Abnormal Lab Results - Last 24 Hours (Table) 11/05/21 11/05/21 11/06/21 Range/Units 10:04 18:14 06:16 WBC (3.8-10.6) k/uL RBC (4.30-5.90) m/uL Hgb (13.0-17.5) gm/dL Hct (39.0-53.0) % RDW (11.5-15.5) % Plt Count (150-450) k/uL Neutrophils # (1.3-7.7) k/uL ESR >140 H (0-15) mm/hr [place] LC, Quant 111.15 H (0.33-1.94) mg/dL Free [place] LC, Quant 60.47 H (0.57-2.63) mg/dL Crossmatch See Detail 11/07/21 Range/Units 07:01 WBC 13.5 H (3.8-10.6) k/uL RBC 2.55 L (4.30-5.90) m/uL Hgb 7.3 L (13.0-17.5) gm/dL Hct 22.4 L (39.0-53.0) % RDW 16.7 H (11.5-15.5) % Plt Count 822 H (150-450) k/uL Neutrophils # 10.7 H (1.3-7.7) k/uL ESR (0-15) mm/hr [place] LC, Quant (0.33-1.94) mg/dL Free Lambda LC, Quant (0.57-2.63) mg/dL Crossmatch Microbiology - Last 24 Hours (Table) 11/04/21 08:09 Blood Culture - Preliminary Blood No Growth after 72 hours 11/03/21 15:47 Catheter Tip Culture - Final Catheter Tip 11/03/21 08:27 Blood Culture - Preliminary Blood No Growth after 96 hours 11/02/21 16:25 Blood Culture - Preliminary Blood No Growth after 96 hours Assessment and Plan (1) Positive blood culture Current Visit: No Status: Acute Code(s): R78.81 - BACTEREMIA SNOMED Code(s): 843240672 Plan: 1patient presented to hospital with sepsis source is likely dialysis catheter infection in this patient who did have a staphylococcal bacteremia which has been finalized as MSSA 2the patient dialysis catheter has been removed and tip has been sent for the culture which came back positive with MSSA. 3patient is status post I&D of the left hip and ankle in the area, cultures from the knee and ankle positive for MSSA 4patient did have persistent bacteremia echocardiogram did not show any vegetation 5patient blood culture 10/26/21 and 10/27/2021 were negative and patient was cleared to get his dialysis catheter which was placed on 10/29/2021, patient subsequently did have a new fever which is slightly concerning also have a drop in hemoglobin with a question of possible hematoma, patient did undergo DEVEN with mobile vegetation attached to the dialysis catheter which was just placed 5 days ago and the patient was not bacteremic for more than 72 hour before the catheter was placed, dialysis catheter was discontinued on 11/03/2021, patient did have blood culture repeated on 11/02/2021, 11/03/2021, 11/04/2021 and has been negative , catheter tip culture negative as well, patient did got the groin dialysis catheter as of 11/06/2021- 6-patient did have a left lower extremity Doppler suggestive of a complex nonvas cular collection possible hematoma could be responsible for his recurrent fever and may benefit from surgical drainage to rule out infected hematoma. 7patient is currently being treated with Naficillin with a plan to finish therapy with cefazolin through the dialysis on discharge Time with Patient: Less than 30
--- NOTE | 2021-11-08 08:56 | P.PN ---
Progress Note - Text Progress Note Date: 11/08/21 Hemoccult testing was negative. No plans for EGD. We will follow-up as needed
[2021-11-08] MEDS: MULTIVITAMINS, THERA 1 EACH TAB PO SCH (09:13)
[2021-11-08] MEDS: ENOXAPARIN 30 MG/0.3 ML SYRINGE SQ SCH (09:13)
[2021-11-08] MEDS: TORSEMIDE 20 MG TAB PO SCH (09:13)
[2021-11-08] MEDS: METOPROLOL TARTRATE 25 MG TAB PO SCH ×2 (09:14→21:38)
[2021-11-08 11:51] LABS: Albumin 2.05 g/dL (3.80-4.90)
--- NOTE | 2021-11-08 13:45 | P.PN ---
Subjective Patient is seen for follow-up for end-stage renal disease and underlying bacteremia. Patient's blood cultures are growing staph aureus, MSSA. Blood cultures have been persistently positive. IJ permacath has been discontinued. Patient had a right femoral catheter which was removed on 10/25/2021 Patient is status post I&D of the left hip left knee and left ankle an irrigation and debridement of left calf No significant complaints today Pain seems to have improved. Repeat blood cultures have been negative however IJ permacath was removed as patient was having fever and it did show a vegetation attached to it. Therefore a femoral catheter has been placed. Patient was dialyzed yesterday and he will be maintained on a Sunday schedule. Temp of 102.9F again last night. No cough, nausea vomiting or diarrhea. Objective - Vital Signs Vital signs: Vital Signs Temp 98.7 F 11/08/21 12:00 Pulse 97 11/08/21 12:00 Resp 16 11/08/21 12:00 BP 152/85 11/08/21 12:00 Pulse Ox 96 11/08/21 12:00 FiO2 Intake & Output 11/07/21 11/08/21 11/08/21 18:59 06:59 18:59 Intake Total 370 368 120 Output Total 0 1 1 Balance 370 367 119 Weight 72.5 kg Intake: Oral 370 368 120 Output: Urine 0 Stool 1 1 Other: Voiding Method Urinal Urinal Urinal # Bowel Movements 1 - Exam Awake, comfortable, not in any acute distress Alert oriented 3 Examination of the heart S1 and S2 Examination lungs bilateral breath sounds are heard Abdomen is soft nontender Examination of lower extremity shows mild edema Right femoral catheter noted - Labs CBC & Chem 7: 11/07/21 07:01 11/06/21 06:16 Labs: Abnormal Lab Results - Last 24 Hours (Table) 11/05/21 11/05/21 11/05/21 Range/Units 18:14 18:14 22:01 Pathologist Review See comment A Albumin (PEP) 2.05 L (3.80-4.90) g/dL [id number] 0.83 H (0.10-0.40) g/dL Gamma Globulins 2.20 H (0.70-1.50) g/dL Methylmalonic Acid 1.43 H (<0.40) umol/L Microbiology - Last 24 Hours (Table) 11/04/21 08:09 Blood Culture - Preliminary Blood No Growth after 96 hours 11/03/21 08:27 Blood Culture - Preliminary Blood No Growth after 120 hours 11/02/21 16:25 Blood Culture - Preliminary Blood No Growth after 120 hours 10/24/21 17:46 Gram Stain - Final Knee - Left Body Fluid Culture - Final 11/03/21 15:47 Catheter Tip Culture - Final Catheter Tip Assessment and Plan Assessment: 1. End-stage renal disease on hemodialysis on a Sunday schedule. IJ permacath has been removed 2. MSSA bacteremia which is persistent. Status post removal of IJ permacath and placement of temporary femoral catheter a few times. IJ catheter was replaced once blood cultures were negative however this had to be removed again as patient was febrile and it was found to have a vegetation attached to it. Patient currently has a femoral tunneled catheter. All his blood cultures have been negative. Patient remains on antibiotics. DEVEN showed no evidence of vegetation 3. Hyperkalemia associated with end-stage renal disease, expect improvement with dialysis 4. Hyponatremia associated with end-stage renal disease expect improvement post dialysis 5. Septic arthritis from persistent bacteremia affecting the left hip, knee and ankle 6. Left leg hematoma/abscess noted on ultrasound done yesterday Plan: Hemodialysis in a.m. Antibiotics as per ID Patient will likely need I and D of left leg lesion/fluid collection
[2021-11-08] MEDS: Acetaminophen-Codeine 300-30mg TAB PO PRN ×2 (14:18→23:53)
--- NOTE | 2021-11-08 15:31 | P.PN ---
Progress Note - Text Progress Note Date: 11/08/21 Chief Complaint: Not feeling well This is a 26-year-old patient, follows with Dr. Travis moore. Chronic stable medical conditions include end-stage kidney disease on hemodialysis Sunday and Sunday, essential hypertension, secondary hyperparathyroidism. Patient came in because of not feeling well. Unsteady weak diet and rundown. Unsure about fever. Blood drawn at the nephrology dialysis center was positive for gram-positive cocci. IV vancomycin was given. Patient is slightly delirious. Consultation nephrology denies D was done. Appetite fair denies any respiratory or urinary symptoms. Admitted with sepsis with positive blood culture from the dialysis center, delirium. IV vancomycin started. October 20: Tired. Decreased oral intake. Dialysis catheter to be taken out today. Patient received dialysis yesterday. Discussed with patient. Tired. Repeat blood cultures from yesterday growing staph aureus. October 21: Less delirious today. Dialysis catheter has been removed yesterday. Blood cultures from here growing staph aureus. Patient not hungry. Did not eat his breakfast. Tired. Patient complaining of pain around the left hip area. I ordered Doppler ultrasound that came back to be negative. Hip x-ray was also ordered and came back to be unremarkable. Orthopedics consulted. 10/23/2021 Patient is seen and evaluated in room at bedside; patient complains of generalized pain more so in Lasix; no complaint of chest pain or shortness of breath Vital signs are reviewed; blood pressure 169/98, pulse 111 Lab review shows a sodium of 123 which is down from 126 yesterday, potassium 5.9, bicarbonate 18, BUN/creatinine of 142/13.1 Repeat blood cultures drawn yesterday are reported positive; plan was to reinsert permacath if blood cultures were negative; nephrology recommending to proceed with placement of Angel catheter and dialyze the patient today and tomorrow due to worsening hyponatremia with plans to remove catheter after dialysis; patient will have a permacath placement once her cultures turn negative with possibility of paratonia dialysis in the meantime 10/24/2021 Patient is seen in follow-up this morning currently receiving hemodialysis. Multiple medical consultations including nephrology and infectious disease following. Blood cultures and catheter tip culture showing staph aureus and awaiting for bacteremia clearance. Patient will also need replacement dialysis catheter once cleared by infectious disease. Patient is currently maintained on 1500 mL fluid restrictions and will slightly increase as patient reports he is thirsty and not getting enough intake. Patient is currently afebrile and denies any chest pain or palpitations. 10/25/2021 Patient is seen in follow-up this morning and hemoglobin was found to be 6.8 and will transfuse 1 unit of PRBC. Patient is scheduled to undergo incision and drainage with possible debridement of the left hip and left lower extremity with orthopedics today. Patient also to have dialysis catheter removed by vascular surgery. Patient continues on fluid restrictions and is currently nothing by mouth for the procedure and diuretics being held. No plans for hemodialysis today. Patient is maintained on Sunday/Sunday/Sunday schedule and will gabby nue with nephrology following closely. Patient is also maintained on IV antibiotics with infectious disease following closely and will continue. Multiple culture showing MSSA and hopeful for cultures during surgery today. She is currently afebrile and denies chest pain or shortness of breath. Patient reports left leg pain. 10/26/2021 Patient is seen in follow-up today status post incision and drainage of the left lower extremity and left hip with orthopedics in currently maintained on IV antibiotics in the form of cefazolin with anxiety following closely. Patient being transitioned to nafcillin while awaiting for finalized cultures of the deep tissue cultures that were obtained during surgery. Patient had dialysis catheter removed and waiting prior to insertion of new catheter. 2-D echo was also ordered to assess for any vegetation. Patient continues with fevers and denies any chest pain or shortness of breath. Hemoglobin was 7.1 today after 1 unit of PRBCs yesterday. WBC trending up at 15.4 and BNP is noted with a creatinine of 8.08. Recommend close monitoring of vital signs and temperature control and continue to await for cultures. Patient reports his pain is curre ntly manageable and denies any chest pain or shortness of breath. 10/27/2021 Patient is seen today and continues on IV abx with multiple medical consultations following and blood cultures have been positive and awaiting repeat blood cultures for clearance of bacteremia. ID following closely and patient also remains without a dialysis catheter at this time. Patient continues with fevers as well and is status post I&D and debridement with ortho post op day 2. Patient hemoglobin is 6.9 and ordered a unit of prbc. Will hold for now and repeat am labs as patient has also not had dialysis for the last 2 days. Creatinine is 8 and nephrology following closely. Patient is extremely weak and will consult PT/OT. Patient denies chest pain or shortness of breath. 10/28/2021 Patient evaluated today continues to have positive blood cultures and awaiting repeat blood cultures that were drawn yesterday to monitor for clearance of bacteremia. Most recent have been negative for 24 hours and will await for 72 hour clearance prior to dialysis catheter placement. Patient continues with low-grade temps of 99 this morning. Patient also maintained on nafcillin with infectious disease following. Asians potassium critically elevated at 6.1 and hemoglobin remained 6.9. WBC is elevated as well at 22 and sodium is found to be 125 with a creatinine of 11.48. Nephrology following closely and may likely need a dialysis catheter temporary for hemodialysis. Ortho following and surgical drains removed of the left lower extremity. PT consulted. 10/29/2021 Patient is seen today and afebrile and maintained on IV antibiotics with ID following. Vascular surgery to place right chest wall dialysis catheter as patient needs emergent dialysis as he has continued elevated potassium and creatinine is above 11. Patient continues with weakness and will continue with PT and advance activity as tolerated. Patient received 1 unit of blood with hemoglobin 7.7. No reports of chest pain or shortness of breath. Encouraged oral intake. Patient was seen and covered by [facility] hospitalist from October 22 through October 29 10/30/2021: Patient getting hemodialysis today. Decreased appetite. On IV nafcillin. No pain. Laying in bed. Patient in the last few days however I&D of septic arthritis including left hip left knee and left ankle. All cultures growing MSSA. 10/31/2021: Two-level good breakfast. Not hungry for lunch. On IV nafcillin. And wish to be out of bed. Patient to be changed over to Ancef at dialysis upon discharge. Hemoglobin 6.9. 1 unit of PRBC ordered. 11/01/2021: On IV nafcillin. Tachycardia. Cardiology consulted. Discussed with the patient. We will try Marinol. 11/02/2021: Remains tachycardic. Spiked a fever to 101 earlier. Discussed with ID. DEVEN ordered with cardiology. Patient started on Marinol yesterday. Feels tired. Hemoglobin 6.7. 1 unit of blood ordered. Hemodialysis today. 11/03/2021: Patient underwent DEVEN E by Dr. Moore today. 1 cm x 0.5 cm of vegetation noted on the catheter tip. Discussed with him, Dr. Mari from nephrology and Dr. Sevilla from ID. It was decided to remove the catheter after dialysis today. Patient never temporary dialysis catheter placed. Discussed with the patient. 11/04/2021: Right jugular dialysis catheter was removed by Dr. Christy yesterday. Patient has a left upper extremity radiocephalic fistula from [facility] 2020. Failure to mature. Patient somewhat disappointed because of his lengthy stay in the hospital. Discussed at length with him and his friend at the bedside. He does understand. But feels frustrated. 11/05/2021: Oral intake variable. Has been feeling depressed. Consult psychiatry. Hemoglobin 6.4. Unit of blood ordered. Likely hemolysis. No evidence of GI bleed. 11/06/2021: Not much of an appetite. tunneled femoral cath placement placement today. Plan for dialysis today and tomorrow. Seen by Dr. Pelaez from surgery to rule out a GI bleed. Hemoglobin dropped again. Another unit of blood ordered. 11/07/2021: No fever. Decreased oral intake. Hemodialysis today. Will change Marinol to Megace. Has some swelling of the left knee. We will get ultrasound to rule out any significant hematoma. November 08: Patient spiked a fever of 102.9 last night. Patient does feel low. Decreased appetite. Discussed with ID. Dr. Stokes from or to to reevaluate left knee for drainage. Could be the source of fever Active Medications Acetaminophen (Acetaminophen Tab 325 Mg Tab) 650 mg PO Q4HR PRN PRN Reason: Fever Last Admin: 11/07/21 20:20 Dose: 650 mg Acetaminophen/Codeine Phosphate (Acetaminophen-Codeine 300-30mg Tab) 1 each PO Q6HR PRN PRN Reason: Pain Last Admin: 11/07/21 20:17 Dose: 1 each Darbepoetin Luis E (Darbepoetin Luis E 40 Mcg/0.4 Ml Syringe) 40 mcg SQ Q7D [facility] Last Admin: 11/02/21 13:26 Dose: 40 mcg Enoxaparin Sodium (Enoxaparin 30 Mg/0.3 Ml Syringe) 30 mg SQ DAILY [facility] Last Admin: 11/08/21 09:13 Dose: 30 mg Nafcillin Sodium 2 gm/ (Dextrose/Water) 100 mls @ 100 mls/hr IVPB Q4H [facility]; Protocol Last Admin: 11/08/21 14:19 Dose: 100 mls/hr Lorazepam (Lorazepam 0.5 Mg Tab) 0.5 mg PO Q6HR PRN PRN Reason: Anxiety Last Admin: 11/07/21 00:33 Dose: 0.5 mg Metoprolol Tartrate (Metoprolol Tartrate 25 Mg Tab) 25 mg PO BID [facility] Last Admin: 11/08/21 09:14 Dose: 25 mg Multivitamins (Multivitamins, Thera 1 Each Tab) 1 each PO DAILY [facility] Last Admin: 11/08/21 09:13 Dose: 1 each Naloxone HCl (Naloxone 0.4 Mg/Ml 1 Ml Vial) 0.2 mg IV Q2M PRN PRN Reason: Opioid Reversal Sevelamer Carbonate (Sevelamer 800 Mg Tab) 1,600 mg PO TID-W/MEALS [facility] Last Admin: 11/08/21 11:51 Dose: 1,600 mg Thiamine HCl (Thiamine 100 Mg Tab) 100 mg PO BID-W/MEALS [facility] Last Admin: 11/08/21 06:44 Dose: 100 mg Torsemide (Torsemide 20 Mg Tab) 80 mg PO DAILY [facility] Last Admin: 11/08/21 09:13 Dose: 80 mg Past medical history to include: End-stage kidney disease on hemodialysis, anemia of CK D, minimal bone disease Social history: Lives with his mother. Smokes about 5 bowls of marijuana daily. No alcohol or cigarette smoking. Family history: Diabetes, COPD, A. fib, CHF Physical examination: VITAL SIGNS: T-max: 102.9, 108, 16, 157/86, 94% room air GENERAL: Laying in bed, awake EYES: Pupils equal. Conjunctiva normal. HEENT: External appearance of nose and ears normal, oral cavity grossly normal. NECK: JVD not raised; masses not palpable. HEART: First and second heart sounds are normal; no edema. LUNGS: Respiratory rate normal; clear to auscultation. ABDOMEN: Soft, nontender, liver spleen not palpable, no masses palpable. PSYCH: AO 3, mood and affect, low MUSCULOSKELETAL:No Clubbing/cyanosis;muscles-grossly intact. Swelling left knee INVESTIGATIONS, reviewed in the clinical context: Dialysis Catheter tip culture: Negative Ultrasound left knee: Edema of the left knee. November 06: WBC 15.9 hemoglobin 6.7 platelets 733 potassium 4.9 creatinine 10.49. Haptoglobin 259 November 05: WBC 17.4 hemoglobin 6.4 potassium 4.7 creatinine 9.05 November 03: WBC 18.7, hemoglobin 7.1 platelets and 5 to potassium 4.2 creatinine 7.73 DEVEN [November 03]: 1 cm x 0.5 cm vegetation on catheter tip November 02: White count 8.2 hemoglobin 6.7 platelets 757 October 31: WBC 19 hemoglobin 6.9 potassium 4.5 creatinine 8.15 October 30: White count 19.8 hemoglobin 7.1 platelet 774 sodium 126 potassium 5.4 creatinine 9.96 October 21: Sodium 127 potassium 5.4 twice a day 2 creatinine 9.1 Urine drug screen: Positive for opiates, benzodiazepine, marijuana White count 12.4 hemoglobin 9 platelets 170 sodium 126 potassium 5.3 rate 80 creatinine 10.9 phosphorus 5.6 and magnesium 2.8 bilirubin 1.8 EKG tracing personally reviewed by me-sinus tachycardia rate of 1:30. Right bundle branch block pattern. Nonspecific ST segment changes. Assessment and plan: -Sepsis with blood cultures positive for MSSA. done at the dialysis center and from October 19.: Slow to respond IV nafcillin Dialysis catheter removed October 20. Blood culture negative on October 27. DEVEN on November 03 showing vegetation on catheter. Right internal jugular Dialysis catheter removed November 03. Tunneled Right femoral dialysis catheter placed on November 06. Dialysis catheter tip culture negative -Polyarticular septic arthritis including the left hip, left knee, left ankle with I&D of all the joints. Possible worsening left knee/joint infection IV nafcillin. Dr. Stokes to evaluate for left knee drainage -Acute delirium from sepsis: Improved Treat underlying infection -End-stage kidney disease on hemodialysis Sunday and Sunday On dialysis schedule -Anemia of chronic kidney disease, dropped hemoglobin to 6.7. Follow H&H. -Acute hemolysis from sepsis causing recurrent drop in hemoglobin Received 6 unit of blood -mineral bone disease/CK D Supplements -Hyperphosphatemia secondary to CK D Renvela -Hypervolemic hyponatremia: Slow to respond Encourage oral intake. Fluid to be taken off at dialysis. -Anorexia multifactorial Megace 5 mg twice a day -Sinus tachycardia likely combination of deconditioning and infection Patient may have a flaring up of her left knee infection. Dr. Stokes to evaluate for drainage again. Also psychiatry to reevaluate depression. Discussed with ID and the patient. Medications to continue. Repeat blood cultures have been negative. Total time spent about 45 minutes with over 25 minutes of discussion.
--- NOTE | 2021-11-08 17:51 | P.PN ---
Subjective Progress Note Date: 11/08/21 This patient is a 26- year old male who is status-post I&D left hip, left knee, left ankle for presumed septic arthritis, and irrigation and debridement left calf for hematoma versus abscess on 10/25/21. Patient was last evaluated on 11/02/21 and had no pain in the left hip, knee, calf, or ankle and was doing well. Patient is re-examined on 11/08/21 at the request of Dr. Smith. Ultrasound of the left calf was performed yesterday and complex fluid collection was noted. Patient's blood cultures has been negative. He was febrile last evening. Patient has been maintained on IV antibiotics per Dr. Jacinto. Patient complains of left knee pain today, although he was able to get up and ambulate. He denies left hip, calf, ankle pain. He has no additional complaints at this time. Objective - Vital Signs Vital signs: Vital Signs Temp 98.7 F 11/08/21 12:00 Pulse 97 11/08/21 12:00 Resp 16 11/08/21 12:00 BP 152/85 11/08/21 12:00 Pulse Ox 96 11/08/21 12:00 FiO2 Intake & Output 11/07/21 11/08/21 11/08/21 18:59 06:59 18:59 Intake Total 370 368 600 Output Total 0 1 1 Balance 370 367 599 Weight 72.5 kg Intake: Oral 370 368 600 Output: Urine 0 Stool 1 1 Other: Voiding Method Urinal Urinal Urinal # Bowel Movements 1 - Exam On examination, patient is sitting up in bed in no apparent distress. He is alert and oriented 3. On inspection of the left lower extremity, dressings in place over the left hip, left knee, left calf, and left ankle. Dressings are removed and reveal well-healing incisions. No active drainage. No significant erythema. There is a moderate left knee effusion. There is pain with PROM of the knee. No pain with PROM of the left hip, ankle. The left calf is soft and non- tender to palpation. Motor and sensory function is intact of the LLE. Patient is able to wiggle toes appropriately. Foot is warm and well perfused. - Labs CBC & Chem 7: 11/07/21 07:01 11/06/21 06:16 Labs: Abnormal Lab Results - Last 24 Hours (Table) 11/05/21 11/05/21 11/05/21 Range/Units 18:14 18:14 22:01 Pathologist Review See comment A Albumin (PEP) 2.05 L (3.80-4.90) g/dL [id number] 0.83 H (0.10-0.40) g/dL Gamma Globulins 2.20 H (0.70-1.50) g/dL Methylmalonic Acid 1.43 H (<0.40) umol/L Microbiology - Last 24 Hours (Table) 11/04/21 08:09 Blood Culture - Preliminary Blood No Growth after 96 hours 11/03/21 08:27 Blood Culture - Preliminary Blood No Growth after 120 hours 11/02/21 16:25 Blood Culture - Preliminary Blood No Growth after 120 hours 10/24/21 17:46 Gram Stain - Final Knee - Left Body Fluid Culture - Final 11/03/21 15:47 Catheter Tip Culture - Final Catheter Tip Assessment and Plan Assessment: Status-post I&D left hip, left knee, left ankle for presumed septic arthritis, and irrigation and debridement left calf for hematoma versus abscess on 10/25/21. Increased left knee pain Plan: - Left knee was aspirated bedside this afternoon due to increased pain and swelling. Patient was also febrile last evening. Fluid was sent to the lab for cell count, crystal analysis, and culture. Further recommendations will be based off of lab results. - MRI left lower extremity ordered. - Continue antibiotics per infectious disease. - Will plan for I&D left calf tomorrow. NPO diet at midnight. Procedure: Verbal consent for left knee aspiration was obtained. The skin overlying the left knee was prepped with chloraprep. An 18-g needle was inserted and 10mLs of cloudy blood tinged fluid was aspirated. The needle was withdrawn and a bandage was applied. The patient tolerated this well. The fluid was sent to the lab.
[2021-11-08 18:13] LABS: Appearance,BF Cloudy; Color,BF Red; Nucleated Cells, Body Fluid 22000 /uL; RBC, Body Fluid 89500 /uL
[2021-11-08 20:22] LABS: Mononuclear WBC,Body Fluid 4 %; Polynuclear WBC,Body Fluid 96 %; Total Cells Counted,Body Fluid 100
[2021-11-08 23:16] LABS: Synovial Fld Crystals None Seen (None Seen)
[2021-11-09] MEDS: MORPHINE SULFATE 2 MG/ML SYRINGE IVP PRN ×3 (00:56→20:24)
[2021-11-09] MEDS: NAFCILLIN 2 GM in DEXTROSE 5% IN WATER 100 ML IVPB SCH ×12 (02:32→20:24)
[2021-11-09] MEDS: THIAMINE 100 MG TAB PO SCH ×2 (06:30→20:17)
[2021-11-09] MEDS: SEVELAMER 800 MG TAB PO SCH ×3 (06:30→18:37)
[2021-11-09 08:59] LABS: Anisocytosis Slight; Basophils # (A) 0.1 k/uL (0-0.2); Basophils % (A) 0 %; Eosinophils # (A) 0.3 k/uL (0-0.7); Eosinophils % (A) 3 %; HCT 21.3 % (39.0-53.0); Hypochromasia Slight; Lymphocytes # (A) 1.5 k/uL (1.0-4.8); Lymphocytes % (A) 12 %; MCH 29.1 pg (25.0-35.0); MCHC 32.5 g/dL (31.0-37.0); MCV 89.4 fL (80.0-100.0); Mean Platelet Volume 7.2; Monocytes # (A) 0.6 k/uL (0-1.0); Monocytes % (A) 5 %; Neutrophils # (A) 9.3 k/uL (1.3-7.7); Neutrophils % (A) 78 %; Platelet Count 846 k/uL (150-450); RBC 2.38 m/uL (4.30-5.90); RDW 16.8 % (11.5-15.5); WBC 11.9 k/uL (3.8-10.6)
[2021-11-09] MEDS: ENOXAPARIN 30 MG/0.3 ML SYRINGE SQ SCH (09:23)
[2021-11-09 09:25] LABS: HGB 6.9 gm/dL (13.0-17.5)
[2021-11-09] MEDS: MULTIVITAMINS, THERA 1 EACH TAB PO SCH (09:30)
[2021-11-09] MEDS: METOPROLOL TARTRATE 25 MG TAB PO SCH ×2 (09:30→20:24)
[2021-11-09] MEDS: TORSEMIDE 20 MG TAB PO SCH (09:30)
--- NOTE | 2021-11-09 11:39 | CT ---
EXAMINATION TYPE: CT abdomen pelvis w con DATE OF EXAM: 11/09/2021 COMPARISON: None HISTORY: abdominal bleeding CT DLP: 1071.4 mGycm CONTRAST: CT scan of the abdomen and pelvis is performed without Oral Contrast and with IV Contrast, patient in jected with 80 mL of Isovue 370. FINDINGS: LUNG BASES-: Moderate partially imaged left lower lobe pleural effusion which may be partially locula millicent as well as left hilar consolidation which could reflect infiltrate or atelectasis. The right lung base demonstrates a couple of small groundglass nodular infiltrates. LIVER/GB: No calcified gallstones. No space occupying hepatic lesion. Biliary tree is of normal ca liber. PANCREAS: No inflammation. No distinct mass. SPLEEN: Splenomegaly measuring 14 cm craniocaudal dimension. No lesion seen. ADRENALS: No nodule. No thickening. KIDNEYS/BLADDER: Atrophic changes of the kidneys noted bilaterally. Cystic lesion lower pole right ki dney. No hydronephrosis. No nephrolithiasis. Urinary bladder grossly unremarkable. BOWEL: Normal appendix. Normal bowel caliber. No inflammation. GENITAL ORGANS: No gross abnormality. LYMPH NODES: No greater than 1cm abdominal or pelvic lymph nodes are appreciated. AORTA: No significant abnormality. OSSEOUS STRUCTURES: No significant abnormality is seen. OTHER: Partially cystic partially solid mass measuring 3.8 x 2.6 cm right iliac this region. This cou ld reflect neoplasm versus a infectious collection. Free fluid within the pelvis as well as a small a mount of upper abdominal free fluid. Partially imaged complex mass like area upper thigh anteriorly. This could reflect hematoma although underlying neoplasm or infected collection is not excluded. Subc utaneous stranding noted. IMPRESSION: 1. No evidence for intra-abdominal hemorrhage. 2. Complex masslike area anterior thigh on the left may reflect hematoma at there is such a history. Infected collection or neoplasm not excluded. Additional complex lesion noted in the region of the ri ght iliacus musculature adjacent to the right SI joint with similar differential diagnosis. 3. Renal atrophic changes. 4.Moderate partially imaged left lower lobe pleural effusion which may be partially loculated as well as left hilar consolidation which could reflect infiltrate or atelectasis. The right lung base demon strates a couple of small groundglass nodular infiltrates.
--- NOTE | 2021-11-09 12:08 | MR ---
EXAMINATION TYPE: MR lower leg LT wo con DATE OF EXAM: 11/09/2021 COMPARISON: Prior MRI left leg October 25, 2021. Prior ultrasound November 07, 2021 HISTORY: Lt leg fluid collection Standard multiplanar, multisequence MRI departmental protocol Multiplanar, multisequence images of the left leg were acquired without contrast. FINDINGS: In the medial left proximal leg beginning at level of knee joint current study there is per sistent old pole circumscribed heterogeneous area measuring approximately 12 cm craniocaudal dimensio n by 3 cm transversely coronal image 20. The AP diameter measures up to 7.5 cm roughly axial image 58 where there is lobulated posterior extension corresponding to sagittal image 22. The area of concern has heterogeneous increased T2 signal with T1 images show some peripheral hyperintensity and being m ore centrally isointense to muscle on T1-weighted images current study. Location is stable in the maricarmen p medial compartment of the proximal right leg. This originates near the level of the popliteal fossa with inferior slight medial extension. Location and size superiorly unchanged from prior MRI. Imagin g characteristics on T1 and T2-weighted images changed as detailed above. IMPRESSION: As above. Stable size lesion and location medial right proximal leg with imaging characte ristics changes suggesting change in internal density favoring nonsimple fluid or blood product. Belén d mass or neoplasm not excluded. Strict clinical correlation with history and clinical workup necessa ry to determine etiology.
--- NOTE | 2021-11-09 12:19 | XR ---
EXAMINATION TYPE: XR knee limited LT DATE OF EXAM: 11/09/2021 COMPARISON: NONE HISTORY: Pain TECHNIQUE: Three views are submitted. FINDINGS: Joint spaces are preserved. Osseous structures are intact. No acute fracture seen. There is an int raosseous lesion involving metadiaphysis of the medial margin of the right tibia. Measures 2.4 cm. La rge suprapatellar bursal fluid collection IMPRESSION: 1. No acute fracture or dislocation. Large suprapatellar bursal fluid collection. There is a persist ent intraosseous lesion of the left proximal tibia. Recommended bone scan to correlate with MRI.
--- NOTE | 2021-11-09 13:05 | P.PN ---
Subjective Progress Note Date: 11/09/21 Patient's hemoglbin still difficult to increase, there was noted increased localized bleeding in which he is going to OR for drainage today. Discussed with Dr. Smith. DDAVP, Sandostatin 50mcg x1, then 25mcg /hour drip x24 hours only. Objective - Vital Signs Vital signs: Vital Signs Temp 100.2 F H 11/09/21 09:30 Pulse 113 H 11/09/21 09:30 Resp 20 11/09/21 09:30 BP 147/92 11/09/21 09:30 Pulse Ox 95 11/09/21 09:30 FiO2 Intake & Output 11/08/21 11/09/21 11/09/21 18:59 06:59 18:59 Intake Total 1074 Output Total 2 302 1 Balance 1072 -302 -1 Intake: Oral 1074 Output: Urine 300 Stool 2 2 1 Other: Voiding Method Urinal Urinal Urinal - Labs CBC & Chem 7: 11/09/21 07:33 11/06/21 06:16 Labs: Abnormal Lab Results - Last 24 Hours (Table) 11/09/21 11/09/21 Range/Units 07:33 09:43 WBC 11.9 H (3.8-10.6) k/uL RBC 2.38 L (4.30-5.90) m/uL Hgb 6.9 L* (13.0-17.5) gm/dL Hct 21.3 L (39.0-53.0) % RDW 16.8 H (11.5-15.5) % Plt Count 846 H (150-450) k/uL Neutrophils # 9.3 H (1.3-7.7) k/uL Crossmatch See Detail Microbiology - Last 24 Hours (Table) 11/04/21 08:09 Blood Culture - Preliminary Blood No Growth after 120 hours 11/03/21 08:27 Blood Culture - Final Blood No Growth after 144 hours 11/08/21 Unknown Gram Stain - Preliminary Knee - Left Body Fluid Culture - Preliminary 10/25/21 17:44 Gram Stain - Final Hip - Left Tissue Culture - Final 11/02/21 16:25 Blood Culture - Final Blood No Growth after 144 hours Assessment and Plan (1) Renal failure Current Visit: Yes Status: Acute Code(s): N19 - UNSPECIFIED KIDNEY FAILURE SNOMED Code(s): 44619248 (2) Septic arthritis of multiple joints Current Visit: Yes Status: Acute Code(s): M00.9 - PYOGENIC ARTHRITIS, UNSPECIFIED SNOMED Code(s): 36550309 (3) Septic joint of left knee joint Current Visit: Yes Status: Acute Code(s): M00.9 - PYOGENIC ARTHRITIS, UNSPEC IFIED SNOMED Code(s): 561015704 (4) MSSA bacteremia Current Visit: No Status: Acute Code(s): R78.81 - BACTEREMIA; B95.61 - METHICILLIN SUSCEP STAPH INFCT CAUSING DIS CLASSD ELSWHR SNOMED Code(s): 955423182 (5) Positive blood culture Current Visit: No Status: Acute Code(s): R78.81 - BACTEREMIA SNOMED Code(s): 016761430 (6) Normocytic anemia Current Visit: Yes Status: Acute Code(s): D64.9 - ANEMIA, UNSPECIFIED S NOMED Code(s): 591330879
[2021-11-09] MEDS ORDERED: DESMOPRESSIN ACETATE 20 MCG in SODIUM CHLORIDE 0.9% 50 ML IVPB ONE (13:30)
--- NOTE | 2021-11-09 14:23 | P.PN ---
Subjective Patient is seen for follow-up for end-stage renal disease and underlying bacteremia. Patient's blood cultures are growing staph aureus, MSSA. Blood cultures have been persistently positive. IJ permacath has been discontinued. Patient had a right femoral catheter which was removed on 10/25/2021 Patient is status post I&D of the left hip left knee and left ankle an irrigation and debridement of left calf No significant complaints today Pain seems to have improved. Repeat blood cultures have been negative however IJ permacath was removed as patient was having fever and it did show a vegetation attached to it. Therefore a femoral catheter has been placed. Patient was dialyzed yesterday and he will be maintained on a Sunday schedule. Continues to have low-grade temperature. Status post aspiration of the left leg fluid collection Objective - Vital Signs Vital signs: Vital Signs Temp 98.2 F 11/09/21 14:00 Pulse 96 11/09/21 14:00 Resp 16 11/09/21 14:00 BP 155/90 11/09/21 14:00 Pulse Ox 98 11/09/21 14:00 FiO2 Intake & Output 11/08/21 11/09/21 11/09/21 18:59 06:59 18:59 Intake Total 1074 0 Output Total 2 302 1 Balance 1072 -302 -1 Intake: Oral 1074 Blood Product 0 Unit 0 Output: Urine 300 Stool 2 2 1 Other: Voiding Method Urinal Urinal Urinal - Exam Awake, comfortable, not in any acute distress Alert oriented 3 Examination of the heart S1 and S2 Examination lungs bilateral breath sounds are heard Abdomen is soft nontender Examination of lower extremity shows mild edema Right femoral catheter noted - Labs CBC & Chem 7: 11/09/21 07:33 11/06/21 06:16 Labs: Abnormal Lab Results - Last 24 Hours (Table) 11/09/21 11/09/21 Range/Units 07:33 09:43 WBC 11.9 H (3.8-10.6) k/uL RBC 2.38 L (4.30-5.90) m/uL Hgb 6.9 L* (13.0-17.5) gm/dL Hct 21.3 L (39.0-53.0) % RDW 16.8 H (11.5-15.5) % Plt Count 846 H (150-450) k/uL Neutrophils # 9.3 H (1.3-7.7) k/uL Crossmatch See Detail Microbiology - Last 24 Hours (Table) 11/04/21 08:09 Blood Culture - Preliminary Blood No Growth after 120 hours 11/03/21 08:27 Blood Culture - Final Blood No Growth after 144 hours 11/08/21 Unknown Gram Stain - Preliminary Knee - Left Body Fluid Culture - Preliminary 10/25/21 17:44 Gram Stain - Final Hip - Left Tissue Culture - Final 11/02/21 16:25 Blood Culture - Final Blood No Growth after 144 hours Assessment and Plan Assessment: 1. End-stage renal disease on hemodialysis on a Sunday schedule. IJ permacath has been removed 2. MSSA bacteremia which is persistent. Status post removal of IJ permacath and placement of temporary femoral catheter a few times. IJ catheter was repla brooke once blood cultures were negative however this had to be removed again as patient was febrile and it was found to have a vegetation attached to it. Patient currently has a femoral tunneled catheter. All his blood cultures have been negative. Patient remains on antibiotics. DEVEN showed no evidence of vegetation 3. Hyperkalemia associated with end-stage renal disease, expect improvement with dialysis 4. Hyponatremia associated with end-stage renal disease expect improvement post dialysis 5. Septic arthritis from persistent bacteremia affecting the left hip, knee and ankle 6. Left leg hematoma/abscess noted on ultrasound, status post aspiration 7. Anemia with no active bleeding noted, maintained on Aranesp. Patient has had multiple packed RBCs transfusion. Reticulocyte count not extremely elevated to suggest significant hemolysis. Plan: Hemodialysis today Continue with antibiotics Increase dose of Aranesp Pain control
[2021-11-09] MEDS: DARBEPOETIN ALFA 40 MCG/0.4 ML SYRINGE SQ SCH (15:24)
--- NOTE | 2021-11-09 15:41 | P.PN ---
Subjective Progress Note Date: 11/08/21 Principal diagnosis: Bacteremia Patient is a 26 year old male with a past medical history significant for end-stage renal disease on hemodialysis presented to hospital with sepsis and bacteremia secondary to dialysis catheter infection which was removed the evening of 10/20/2021. Patient is status post I and D of the left knee and hip and ankle area completed 10/25/2021, patient is status post new permacatheter placement on 10/29/2021 as a blood culture from 10/26/2021 were negative, the patient is status post DEVEN completed with no evidence of endocarditis however did show mobile mass attached to the dialysis catheter which has been removed 11/03/2021, the patient did have a dialysis cath placement in the right groin as of 11/06/2021 On today's evaluation that is 11/08/2021, the patient did spike a fever of 102.9F last night , the patient is breathing comfortably on room air , The patient denies having any chest pain shortness of breath or cough no nausea no vomiting no abdominal , the patient pain pain to the left knee and ankle area is currently controlled, no new symptoms Objective - Vital Signs Vital signs: Vital Signs Temp 98.7 F 11/08/21 12:00 Pulse 97 11/08/21 12:00 Resp 16 11/08/21 12:00 BP 152/85 11/08/21 12:00 Pulse Ox 96 11/08/21 12:00 FiO2 Intake & Output 11/07/21 11/08/21 11/08/21 18:59 06:59 18:59 Intake Total 370 368 600 Output Total 0 1 1 Balance 370 367 599 Weight 72.5 kg Intake: Oral 370 368 600 Output: Urine 0 Stool 1 1 Other: Voiding Method Urinal Urinal Urinal # Bowel Movements 1 - Exam GENERAL DESCRIPTION: Young male lying in bed in no distress RESPIRATORY SYSTEM: Unlabored breathing , decreased breath sounds at bases HEART: S1 S2 regular rate and rhythm , ABDOMEN: Soft , no tenderness EXTREMITIES: No edema feet - Labs CBC & Chem 7: 11/09/21 07:33 11/06/21 06:16 Labs: Abnormal Lab Results - Last 24 Hours (Table) 11/05/21 11/05/21 11/05/21 Range/Units 18:14 18:14 22:01 Pathologist Review See comment A Albumin (PEP) 2.05 L (3.80-4.90) g/dL [id number] 0.83 H (0.10-0.40) g/dL Gamma Globulins 2.20 H (0.70-1.50) g/dL Methylmalonic Acid 1.43 H (<0.40) umol/L Microbiology - Last 24 Hours (Table) 11/04/21 08:09 Blood Culture - Preliminary Blood No Growth after 96 hours 11/03/21 08:27 Blood Culture - Preliminary Blood No Growth after 120 hours 11/02/21 16:25 Blood Culture - Preliminary Blood No Growth after 120 hours 10/24/21 17:46 Gram Stain - Final Knee - Left Body Fluid Culture - Final 11/03/21 15:47 Catheter Tip Culture - Final Catheter Tip Assessment and Plan (1) Positive blood culture Current Visit: No Status: Acute Code(s): R78.81 - BACTEREMIA SNOMED Code(s): 258107007 Plan: 1patient presented to hospital with sepsis source is likely dialysis catheter infection in this patient who did have a staphylococcal bacteremia which has been finalized as MSSA 2the patient dialysis catheter has been removed and tip has been sent for the culture which came back positive with MSSA. 3patient is status post I&D of the left hip and ankle in the area, cultures from the knee and ankle positive for MSSA 4patient did have persistent bacteremia echocardiogram did not show any vegetation 5patient blood culture 10/26/21 and 10/27/2021 were negative and patient was cleared to get his dialysis catheter which was placed on 10/29/2021, patient subsequently did have a new fever which is slightly concerning also have a drop in hemoglobin with a question of possible hematoma, patient did undergo DEVEN with mobile vegetation attached to the dialysis catheter which was just placed 5 days ago and the patient was not bacteremic for more than 72 hour before the catheter was placed, dialysis catheter was discontinued on 11/03/2021, patient did have blood culture repeated on 11/02/2021, 11/03/2021, 11/04/2021 and has been negative , catheter tip culture negative as well, patient did got the groin dialysis catheter as of 11/06/2021- 6-patient did have a left lower extremity Doppler suggestive of a complex nonvascular collection possible hematoma could be responsible for his recurrent fever , orthopedic has been reconsulted waiting their evaluation, WBC scan has been ordered as well 7patient is currently being treated with Naficillin with a plan to finish t herapy with cefazolin through the dialysis on discharge Time with Patient: Less than 30
[2021-11-09] MEDS ORDERED: SODIUM CHLORIDE 0.9% 1,000 ML IV ONE (15:44)
--- NOTE | 2021-11-09 15:45 | P.PN ---
Subjective Progress Note Date: 11/09/21 Principal diagnosis: Bacteremia Patient is a 26 year old male with a past medical history significant for end-stage renal disease on hemodialysis presented to hospital with sepsis and bacteremia secondary to dialysis catheter infection which was removed the evening of 10/20/2021. Patient is status post I and D of the left knee and hip and ankle area completed 10/25/2021, patient is status post new permacatheter placement on 10/29/2021 as a blood culture from 10/26/2021 were negative, the patient is status post DEVEN completed with no evidence of endocarditis however did show mobile mass attached to the dialysis catheter which has been removed 11/03/2021, the patient did have a dialysis cath placement in the right groin as of 11/06/2021 On today's evaluation that is 11/09/2021, the patient did have a low-grade fever of 100.1F last night , the patient is breathing comfortably on room air , The patient denies chest pain shortness of breath or cough no nausea no vomiting no abdominal , the patient pain pain to the left knee and ankle area is currently controlled Objective - Vital Signs Vital signs: Vital Signs Temp 100.2 F H 11/09/21 09:30 Pulse 113 H 11/09/21 09:30 Resp 20 11/09/21 09:30 BP 147/92 11/09/21 09:30 Pulse Ox 95 11/09/21 09:30 FiO2 Intake & Output 11/08/21 11/09/21 11/09/21 18:59 06:59 18:59 Intake Total 1074 Output Total 2 302 1 Balance 1072 -302 -1 Intake: Oral 1074 Output: Urine 300 Stool 2 2 1 Other: Voiding Method Urinal Urinal Urinal - Exam GENERAL DESCRIPTION: Young male lying in bed in no distress RESPIRATORY SYSTEM: Unlabored breathing , decreased breath sounds at bases HEART: S1 S2 regular rate and rhythm , ABDOMEN: Soft , no tenderness EXTREMITIES: No edema feet - Labs CBC & Chem 7: 11/09/21 07:33 11/06/21 06:16 Labs: Abnormal Lab Results - Last 24 Hours (Table) 11/09/21 11/09/21 Range/Units 07:33 09:43 WBC 11.9 H (3.8-10.6) k/uL RBC 2.38 L (4.30-5.90) m/uL Hgb 6.9 L* (13.0-17.5) gm/dL Hct 21.3 L (39.0-53.0) % RDW 16.8 H (11.5-15.5) % Plt Count 846 H (150-450) k/uL Neutrophils # 9.3 H (1.3-7.7) k/uL Crossmatch See Detail Microbiology - Last 24 Hours (Table) 11/04/21 08:09 Blood Culture - Preliminary Blood No Growth after 120 hours 11/03/21 08:27 Blood Culture - Final Blood No Growth after 144 hours 11/08/21 Unknown Gram Stain - Preliminary Knee - Left Body Fluid Culture - Preliminary 10/25/21 17:44 Gram Stain - Final Hip - Left Tissue Culture - Final 11/02/21 16:25 Blood Culture - Final Blood No Growth after 144 hours Assessment and Plan (1) Positive blood culture Current Visit: No Status: Acute Code(s): R78.81 - BACTEREMIA SNOMED Code(s): 046123602 Plan: 1patient presented to hospital with sepsis source is likely dialysis catheter infection in this patient who did have a staphylococcal bacteremia which has been finalized as MSSA 2the patient dialysis catheter has been removed and tip has been sent for the culture which came back positive with MSSA. 3patient is status post I&D of the left hip and ankle in the area, cultures from the knee and ankle positive for MSSA 4patient did have persistent bacteremia echocardiogram did not show any vegetation 5patient blood culture 10/26/21 and 10/27/2021 were negative and patient was cleared to get his dialysis catheter which was placed on 10/29/2021, patient subsequently did have a new fever which is slightly concerning also have a drop in hemoglobin with a question of possible hematoma, patient did undergo DEVEN with mobile vegetation attached to the dialysis catheter which was just placed 5 days ago and the patient was not bacteremic for more than 72 hour before the catheter was placed, dialysis catheter was discontinued on 11/03/2021, patient did have blood culture repeated on 11/02/2021, 11/03/2021, 11/04/2021 and has been negative , catheter tip culture negative as well, patient did got the groin dialysis catheter as of 11/06/2021- 6-patient did have a left lower extremity Doppler suggestive of a complex nonvascular collection possible hematoma could be responsible for his recurrent fever , orthopedic has been reconsulted, MRI has been repeated as well as CT of abdominal pelvis, with evidence of multiple fluid collection and concerning for hematoma orthopedic is pending for I&D and cultures we are still waiting for the WBC scan to be finalize 7patient to continue with Naficillin , may need transfer to tertiary care in view of overall complicated course Time with Patient: Less than 30
[2021-11-09] MEDS ORDERED: DARBEPOETIN ALFA 100MCG/0.5ML SYRINGE SQ SCH (16:00)
[2021-11-09] MEDS ORDERED: OCTREOTIDE 100 MCG/ML INJ IVP SCH (16:00)
[2021-11-09] MEDS ORDERED: MIDAZOLAM 2 MG/2 ML VIAL ONE (16:03)
[2021-11-09] MEDS ORDERED: fentaNYL (PF) 50 MCG/ML 2 ML AMP ONE (16:03)
[2021-11-09] MEDS ORDERED: PROPOFOL 10 MG/ML 20 ML VIAL IV ONE (16:03)
[2021-11-09] MEDS ORDERED: LIDOCAINE 2% INJ 20 MG/ML (2 ML VIAL) ONE (16:03)
[2021-11-09] MEDS ORDERED: HYDROmorphone (PF) 1 MG/ML ONE (16:03)
[2021-11-09] MEDS ORDERED: OCTREOTIDE 500 MCG in SODIUM CHLORIDE 0.9% 250 ML IV SCH (16:15)
--- NOTE | 2021-11-09 17:04 | P.PN ---
Progress Note - Text Progress Note Date: 11/09/21 Chief Complaint: Not feeling well This is a 26-year-old patient, follows with Dr. Travis moore. Chronic stable medical conditions include end-stage kidney disease on hemodialysis Sunday and Sunday, essential hypertension, secondary hyperparathyroidism. Patient came in because of not feeling well. Unsteady weak diet and rundown. Unsure about fever. Blood drawn at the nephrology dialysis center was positive for gram-positive cocci. IV vancomycin was given. Patient is slightly delirious. Consultation nephrology denies D was done. Appetite fair denies any respiratory or urinary symptoms. Admitted with sepsis with positive blood culture from the dialysis center, delirium. IV vancomycin started. October 20: Tired. Decreased oral intake. Dialysis catheter to be taken out today. Patient received dialysis yesterday. Discussed with patient. Tired. Repeat blood cultures from yesterday growing staph aureus. October 21: Less delirious today. Dialysis catheter has been removed yesterday. Blood cultures from here growing staph aureus. Patient not hungry. Did not eat his breakfast. Tired. Patient complaining of pain around the left hip area. I ordered Doppler ultrasound that came back to be negative. Hip x-ray was also ordered and came back to be unremarkable. Orthopedics consulted. 10/23/2021 Patient is seen and evaluated in room at bedside; patient complains of generalized pain more so in Lasix; no complaint of chest pain or shortness of breath Vital signs are reviewed; blood pressure 169/98, pulse 111 Lab review shows a sodium of 123 which is down from 126 yesterday, potassium 5.9, bicarbonate 18, BUN/creatinine of 142/13.1 Repeat blood cultures drawn yesterday are reported positive; plan was to reinsert permacath if blood cultures were negative; nephrology recommending to proceed with placement of Angel catheter and dialyze the patient today and tomorrow due to worsening hyponatremia with plans to remove catheter after dialysis; patient will have a permacath placement once her cultures turn negative with possibility of paratonia dialysis in the meantime 10/24/2021 Patient is seen in follow-up this morning currently receiving hemodialysis. Multiple medical consultations including nephrology and infectious disease following. Blood cultures and catheter tip culture showing staph aureus and awaiting for bacteremia clearance. Patient will also need replacement dialysis catheter once cleared by infectious disease. Patient is currently maintained on 1500 mL fluid restrictions and will slightly increase as patient reports he is thirsty and not getting enough intake. Patient is currently afebrile and denies any chest pain or palpitations. 10/25/2021 Patient is seen in follow-up this morning and hemoglobin was found to be 6.8 and will transfuse 1 unit of PRBC. Patient is scheduled to undergo incision and drainage with possible debridement of the left hip and left lower extremity with orthopedics today. Patient also to have dialysis catheter removed by vascular surgery. Patient continues on fluid restrictions and is currently nothing by mouth for the procedure and diuretics being held. No plans for hemodialysis today. Patient is maintained on Sunday/Sunday/Sunday schedule and will gabby nue with nephrology following closely. Patient is also maintained on IV antibiotics with infectious disease following closely and will continue. Multiple culture showing MSSA and hopeful for cultures during surgery today. She is currently afebrile and denies chest pain or shortness of breath. Patient reports left leg pain. 10/26/2021 Patient is seen in follow-up today status post incision and drainage of the left lower extremity and left hip with orthopedics in currently maintained on IV antibiotics in the form of cefazolin with anxiety following closely. Patient being transitioned to nafcillin while awaiting for finalized cultures of the deep tissue cultures that were obtained during surgery. Patient had dialysis catheter removed and waiting prior to insertion of new catheter. 2-D echo was also ordered to assess for any vegetation. Patient continues with fevers and denies any chest pain or shortness of breath. Hemoglobin was 7.1 today after 1 unit of PRBCs yesterday. WBC trending up at 15.4 and BNP is noted with a creatinine of 8.08. Recommend close monitoring of vital signs and temperature control and continue to await for cultures. Patient reports his pain is curre ntly manageable and denies any chest pain or shortness of breath. 10/27/2021 Patient is seen today and continues on IV abx with multiple medical consultations following and blood cultures have been positive and awaiting repeat blood cultures for clearance of bacteremia. ID following closely and patient also remains without a dialysis catheter at this time. Patient continues with fevers as well and is status post I&D and debridement with ortho post op day 2. Patient hemoglobin is 6.9 and ordered a unit of prbc. Will hold for now and repeat am labs as patient has also not had dialysis for the last 2 days. Creatinine is 8 and nephrology following closely. Patient is extremely weak and will consult PT/OT. Patient denies chest pain or shortness of breath. 10/28/2021 Patient evaluated today continues to have positive blood cultures and awaiting repeat blood cultures that were drawn yesterday to monitor for clearance of bacteremia. Most recent have been negative for 24 hours and will await for 72 hour clearance prior to dialysis catheter placement. Patient continues with low-grade temps of 99 this morning. Patient also maintained on nafcillin with infectious disease following. Asians potassium critically elevated at 6.1 and hemoglobin remained 6.9. WBC is elevated as well at 22 and sodium is found to be 125 with a creatinine of 11.48. Nephrology following closely and may likely need a dialysis catheter temporary for hemodialysis. Ortho following and surgical drains removed of the left lower extremity. PT consulted. 10/29/2021 Patient is seen today and afebrile and maintained on IV antibiotics with ID following. Vascular surgery to place right chest wall dialysis catheter as patient needs emergent dialysis as he has continued elevated potassium and creatinine is above 11. Patient continues with weakness and will continue with PT and advance activity as tolerated. Patient received 1 unit of blood with hemoglobin 7.7. No reports of chest pain or shortness of breath. Encouraged oral intake. Patient was seen and covered by [facility] hospitalist from October 22 through October 29 10/30/2021: Patient getting hemodialysis today. Decreased appetite. On IV nafcillin. No pain. Laying in bed. Patient in the last few days however I&D of septic arthritis including left hip left knee and left ankle. All cultures growing MSSA. 10/31/2021: Two-level good breakfast. Not hungry for lunch. On IV nafcillin. And wish to be out of bed. Patient to be changed over to Ancef at dialysis upon discharge. Hemoglobin 6.9. 1 unit of PRBC ordered. 11/01/2021: On IV nafcillin. Tachycardia. Cardiology consulted. Discussed with the patient. We will try Marinol. 11/02/2021: Remains tachycardic. Spiked a fever to 101 earlier. Discussed with ID. DEVEN ordered with cardiology. Patient started on Marinol yesterday. Feels tired. Hemoglobin 6.7. 1 unit of blood ordered. Hemodialysis today. 11/03/2021: Patient underwent DEVEN E by Dr. Moore today. 1 cm x 0.5 cm of vegetation noted on the catheter tip. Discussed with him, Dr. Mari from nephrology and Dr. Sevilla from ID. It was decided to remove the catheter after dialysis today. Patient never temporary dialysis catheter placed. Discussed with the patient. 11/04/2021: Right jugular dialysis catheter was removed by Dr. Christy yesterday. Patient has a left upper extremity radiocephalic fistula from [facility] 2020. Failure to mature. Patient somewhat disappointed because of his lengthy stay in the hospital. Discussed at length with him and his friend at the bedside. He does understand. But feels frustrated. 11/05/2021: Oral intake variable. Has been feeling depressed. Consult psychiatry. Hemoglobin 6.4. Unit of blood ordered. Likely hemolysis. No evidence of GI bleed. 11/06/2021: Not much of an appetite. tunneled femoral cath placement placement today. Plan for dialysis today and tomorrow. Seen by Dr. Pelaez from surgery to rule out a GI bleed. Hemoglobin dropped again. Another unit of blood ordered. 11/07/2021: No fever. Decreased oral intake. Hemodialysis today. Will change Marinol to Megace. Has some swelling of the left knee. We will get ultrasound to rule out any significant hematoma. November 08: Patient spiked a fever of 102.9 last night. Patient does feel low. Decreased appetite. Discussed with ID. Dr. Stokes from or to to reevaluate left knee for drainage. Could be the source of fever November 09: Left knee swelling was drained by orthopedic PA yesterday. Formal load pending. Cloudy and bloody. This morning case was discussed with Dr. Laws from hematology. Computed tomography scan abdomen pelvis is ordered. Complex masslike area anterior thigh and the left possible hematoma. An additional complex lesion noted in the region of the right iliac musculature. Relevant atrophic changes. This was later discussed with Dr. Laws. Could be from platelet dysfunction. IV octreotide was ordered. Left leg MRI showing a 12 cm x 3 cm. This was discussed with Dr. Stokes from orthopedics. Also discussed with Dr. Christy from vascular. Pattison to be hematoma. Patient also done for I&D of his left knee by Dr. Stokes this afternoon Active Medications Acetaminophen (Acetaminophen Tab 325 Mg Tab) 650 mg PO Q4HR PRN PRN Reason: Fever Last Admin: 11/07/21 20:20 Dose: 650 mg Acetaminophen/Codeine Phosphate (Acetaminophen-Codeine 300-30mg Tab) 1 each PO Q6HR PRN PRN Reason: Pain Last Admin: 11/08/21 23:53 Dose: 1 each Darbepoetin Luis E (Darbepoetin Luis E 100mcg/0.5ml Syringe) 100 mcg SQ Q7D [facility] Enoxaparin Sodium (Enoxaparin 30 Mg/0.3 Ml Syringe) 30 mg SQ DAILY [facility] Last Admin: 11/09/21 09:23 Dose: Not Given Nafcillin Sodium 2 gm/ (Dextrose/Water) 100 mls @ 100 mls/hr IVPB Q4H [facility]; Protocol Last Admin: 11/09/21 15:23 Dose: Not Given Octreotide Acetate 500 mcg/ (Sodium Chloride) 250 mls @ 12.5 mls/hr IV .Q20H [facility] Stop: 11/10/21 16:14 Lorazepam (Lorazepam 0.5 Mg Tab) 0.5 mg PO Q6HR PRN PRN Reason: Anxiety Last Admin: 11/07/21 00:33 Dose: 0.5 mg Metoprolol Tartrate (Metoprolol Tartrate 25 Mg Tab) 25 mg PO BID [facility] Last Admin: 11/09/21 09:30 Dose: 25 mg Morphine Sulfate (Morphine Sulfate 2 Mg/Ml Syringe) 2 mg IVP Q4HR PRN PRN Reason: Pain/Discomfort Last Admin: 11/09/21 09:35 Dose: 2 mg Multivitamins (Multivitamins, Thera 1 Each Tab) 1 each PO DAILY [facility] Last Admin: 11/09/21 09:30 Dose: 1 each Naloxone HCl (Naloxone 0.4 Mg/Ml 1 Ml Vial) 0.2 mg IV Q2M PRN PRN Reason: Opioid Reversal Sevelamer Carbonate (Sevelamer 800 Mg Tab) 1,600 mg PO TID-W/MEALS [facility] Last Admin: 11/09/21 15:23 Dose: Not Given Thiamine HCl (Thiamine 100 Mg Tab) 100 mg PO BID-W/MEALS [facility] Last Admin: 11/09/21 06:30 Dose: 100 mg Torsemide (Torsemide 20 Mg Tab) 80 mg PO DAILY [facility] Last Admin: 11/09/21 09:30 Dose: 80 mg Zolpidem Tartrate (Zolpidem 5 Mg Tab) 5 mg PO HS [facility] Past medical history to include: End-stage kidney disease on hemodialysis, anemia of CK D, minimal bone disease Social history: Lives with his mother. Smokes about 5 bowls of marijuana daily. No alcohol or cigarette smoking. Family history: Diabetes, COPD, A. fib, CHF Physical examination: VITAL SIGNS: 98.3, 98, 18, 167/89, 96% room air GENERAL: Laying in bed, awake EYES: Pupils equal. Conjunctiva normal. HEENT: External appearance of nose and ears normal, oral cavity grossly normal. NECK: JVD not raised; masses not palpable. HEART: First and second heart sounds are normal; no edema. LUNGS: Respiratory rate normal; clear to auscultation. ABDOMEN: Soft, nontender, liver spleen not palpable, no masses palpable. PSYCH: AO 3, mood and affect, low MUSCULOSKELETAL:No Clubbing/cyanosis;muscles-grossly intact. Swelling left knee INVESTIGATIONS, reviewed in the clinical context: Lower extremity MRI [November 09]: Suspicious for hematoma Abdomen pelvis CT: [November 09]: Suspicious for right iliac hematoma November 07: WBC 11.9 hemoglobin 6.9 platelets 846 Dialysis Catheter tip culture: Negative Ultrasound left knee: Edema of the left knee. November 06: WBC 15.9 hemoglobin 6.7 platelets 733 potassium 4.9 creatinine 10.49. Haptoglobin 259 November 05: WBC 17.4 hemoglobin 6.4 potassium 4.7 creatinine 9.05 November 03: WBC 18.7, hemoglobin 7.1 platelets and 5 to potassium 4.2 creatinine 7.73 DEVEN [November 03]: 1 cm x 0.5 cm vegetation on catheter tip November 02: White count 8.2 hemoglobin 6.7 platelets 757 October 31: WBC 19 hemoglobin 6.9 potassium 4.5 creatinine 8.15 October 30: White count 19.8 hemoglobin 7.1 platelet 774 sodium 126 potassium 5.4 creatinine 9.96 October 21: Sodium 127 potassium 5.4 twice a day 2 creatinine 9.1 Urine drug screen: Positive for opiates, benzodiazepine, marijuana White count 12.4 hemoglobin 9 platelets 170 sodium 126 potassium 5.3 rate 80 creatinine 10.9 phosphorus 5.6 and magnesium 2.8 bilirubin 1.8 EKG tracing personally reviewed by me-sinus tachycardia rate of 1:30. Right bundle branch block pattern. Nonspecific ST segment changes. Assessment and plan: -Sepsis with blood cultures positive for MSSA. done at the dialysis center and from October 19.: Slow to respond IV nafcillin Dialysis catheter removed October 20. Blood culture negative on October 27. DEVEN on November 03 showing vegetation on catheter. Right internal jugular Dialysis catheter removed November 03. Tunneled Right femoral dialysis catheter placed on November 06. Dialysis catheter tip culture negative -Hematoma different sites including left thigh, left knee, right iliac muscle. Pattison to be from platelet dysfunction given hemodialysis. This would explain patient's repeated drop in hemoglobin. Being followed by hematology. IV octreotide. -Polyarticular septic arthritis including the left hip, left knee, left ankle with I&D of all the joints. Possible worsening left knee/joint infection IV nafcillin. Dr. Stokes to evaluate for left knee drainage -Acute delirium from sepsis: Improved Treat underlying infection -End-stage kidney disease on hemodialysis Sunday and Sunday On dialysis schedule -Anemia of chronic kidney disease, dropped hemoglobin to 6.7. Follow H&H. -Acute hemolysis from sepsis causing recurrent drop in hemoglobin Received 6 unit of blood -mineral bone disease/CK D Supplements -Hyperphosphatemia secondary to CK D Renvela -Hypervolemic hyponatremia: Slow to respond Encourage oral intake. Fluid to be taken off at dialysis. -Anorexia multifactorial Megace 5 mg twice a day -Sinus tachycardia likely combination of deconditioning and infection MRI computed tomography scan results with Dr. Stokes from orthopedics, Dr. Christy from vascular, Dr. laws hematology. Patient felt to have platelet dysfunction resulting in several hematomas. Explaining the drop in hemoglobin. Octreotide drip started. Patient also went for I&D of the left knee today. Total time spent today about 45 minutes with over 30 minutes of discussion
--- NOTE | 2021-11-09 18:20 | P.OP ---
Date of Procedure: 11/09/21 Preoperative Diagnosis: 1. Previous septic arthritis left knee status post irrigation and debridement 2. Prior left hip effusion status post irrigation and debridement 3. Previous left calf hematoma status post irrigation and debridement 4. Left hip and thigh hematoma 5. Left calf hematoma 6. Chronic renal failure on dialysis 7. Acute on chronic anemia requiring multiple transfusions Postoperative Diagnosis: Same Procedure(s) Performed: 1. Left hip irrigation and debridement (non-excisional debridement of nonviable skin, subcutaneous tissue, and muscle down to the hip joint) 2. Left knee irrigation and debridement (non-excisional debridement of nonviable skin, subcu tissue down to the knee joint) 3. Left calf irrigation and debridement (non-excisional debridement of nonviable skin and subcu tissue down to the superficial and deep posterior compartment musculature) Anesthesia: MARIBETH Surgeon: Reggie Stokes Coat Padder #1: Juancarlos Newman Estimated Blood Loss (ml): 200 Pathology: other (Multiple cultures and tissue for pathology were sent) Condition: stable Disposition: PACU Indications for Procedure: The patient is a very pleasant 26-year-old male with multiple medical problems who is been in the hospital for almost a month. He is admitted to internal medicine following bacteremia from an infected indwelling catheter. He also has chronic renal insufficiency requiring dialysis. We are consulted earlier this month and performed irrigation and debridement of septic arthritis in the left knee and ankle. He also had an aseptic effusion of the left hip which was washed out given his clinical picture. He had a left calf hematoma which was also debrided but appeared noninfectious. The patient did well in the early postoperative period and orthopedics signed off. We will re-consulted due to recurrent effusion in the left knee as well as swelling in the hip, thigh, and calf. Advanced imaging was repeated and his knee was aspirated. At the request internal medicine and infectious disease I agreed to incise and drain the thigh and calf. Due to his prior septic arthritis of the knee I recommended repeat irrigation and debridement of the knee as well. I wrote the patient discussed all of this at length preoperatively. He is well aware of the potential risks and complications of surgery. He provided his verbal and written consent to go forward with surgery. Operative Findings: There was a large amount of cloudy yellow fluid in the knee consistent with prior septic arthritis. There was a large and solid awaiting hematoma in the left thigh and calf. There was no evidence of deep infection. All the muscle appeared viable. There was no single source of bleeding but all the cut tissues seemed to bleed excessively. Description of Procedure: The patient was identified preoperative holding and the correct left leg was marked with my initials. I reviewed the consent form with the patient and all his questions were answered. He was then brought back to the operating room. He was positioned on the OR table where general anesthetic was given. The left leg was prepped and draped in the standard sterile fashion. Prior to setting surgery timeout was performed identifying the correct patient, operative extremity, and procedure. I began by making an incision over the prior anterior incision at the hip. Skin incision was made with a scalpel and dissection was carried down carefully to the fascia. The old suture line was identified and cut with a scissors. All extra suture material was removed. I then bluntly dissected down to the hip and there was a large consolidating hematoma. Fluid was swabbed for cultures and tissue was sent for both culture and pathology. The wound was thoroughly irrigated. On inspection all the tissue appeared to bleed excessively but there was not one single source of bleeding. The wound was irrigated and closed in layers over a medium Hemovac drain. I then turned my attention to the left knee. The prior anterior incision was made with a scalpel. Dissection was carried down carefully to the subcu. A medial parapatellar arthrotomy was made in line with the old suture line. There is a large lopez of cloudy yellow fluid. This was swabbed and sent for culture. Tissue was also sent for culture. The visualized portion of the femoral condyles, tibial plateau, and undersurface the patella had intact hyaline cartilage. The wound was thoroughly irrigated with 3 L of sterile saline using cystoscopy tubing. A deep drain was placed and the wound was closed in layers. I then turned my attention to the left calf. The prior medial incision was made with a scalpel and dissection was carried down to the superficial fascia. The old suture line was identified and removed with scissors. I then bluntly developed the interval between the gastrocnemius and soleus. There was a large amount of blood and consolidating hematoma. I tracked proximally to the level of the knee and removed a large amount of consolidating hematoma. Fluid was swabbed for culture and tissue was sent for culture. The wound was then thoroughly irrigated using 3 L of sterile saline. On inspection similar to the hip and knee there was not one single source of bleeding but all cut tissue appeared to bleed excessively. The wound was then closed in layers. After all wounds were closed sterile dressings were applied to the incisions and drain sites. I verified that all instrument, sponge, and sharp counts were correct. The patient was then awoken from his anesthetic, transferred from the OR table to a gurney, and brought to recovery having tolerated the procedure well. Plan: The patient can weight-bear as tolerated on his left leg. We will leave his drains in until output is less than 100 mL's per shift. I have no plans for repeat surgery unless his condition worsens. I will defer to internal medicine and infectious disease for IV antibiotics. I also suggested a vascular surgery consultation to assess for a source of his continued bleeding and need for transfusions. I would also consider transfer to a tertiary referral center given the patient's young age, multiple medical issues, and failure to improve over the last several weeks. We will continue to closely follow as he recovers from this procedure.
[2021-11-09] MEDS ORDERED: HYDROmorphone 0.5 MG/0.5 ML SYRINGE IVP ONE ×3 (18:38→19:30)
[2021-11-09] MEDS: ZOLPIDEM 5 MG TAB PO SCH (20:24)
[2021-11-09 21:12] LABS: Albumin 2.7 g/dL (3.5-5.0); Calcium 8.4 mg/dL (8.4-10.2); Potassium 4.4 mmol/L (3.5-5.1); Total Bilirubin 1.6 mg/dL (0.2-1.3); Total Protein 7.2 g/dL (6.3-8.2)
[2021-11-10] MEDS: LORazepam 0.5 MG TAB PO PRN ×2 (00:38→21:50)
[2021-11-10] MEDS: Acetaminophen-Codeine 300-30mg TAB PO PRN ×3 (00:38→21:50)
[2021-11-10] MEDS: NAFCILLIN 2 GM in DEXTROSE 5% IN WATER 100 ML IVPB SCH ×12 (03:00→21:51)
[2021-11-10] MEDS: MORPHINE SULFATE 2 MG/ML SYRINGE IVP PRN ×3 (04:50→15:47)
[2021-11-10] MEDS: SEVELAMER 800 MG TAB PO SCH ×3 (06:26→17:14)
[2021-11-10] MEDS: THIAMINE 100 MG TAB PO SCH ×2 (06:27→17:14)
--- NOTE | 2021-11-10 08:36 | XR ---
EXAMINATION TYPE: XR tibia fibula LT DATE OF EXAM: 11/10/2021 8:21 AM INDICATION: Patient age:Male; 26 years old; Reason for study: evaluation of tibial lesion; [facility]. COMPARISON: Left knee radiographs 11/09/2021, MRI left lower extremity 11/09/2021 TECHNIQUE: The left tibia/fibula was examined in AP and lateral projections. FINDINGS: Interval placement of drainage catheter in the region of the suprapatellar joint space with foci of gas identified likely from catheter placement. Marginal decrease in size of large suprapatel lar bursal fluid collection. No acute fracture or dislocation. No significant change in sclerotic oss eous lesion involving the metaphysis of the medial margin of the right tibia. Demonstrates a narrow z one of transition without adjacent periosteal reaction. Redemonstration of complex mass in the left m edial calf with foci of gas identified. There is associated soft tissue swelling. IMPRESSION: 1. Redemonstration of complex mass in left medial calf with foci of gas identified. This raises pastor rn for possible infectious process such as an abscess versus related to recent intervention. Clinical correlation is recommended. 2. No significant change in osseous lesion involving the metaphysis of the medial margin of the right tibia. 3. Interval placement of drainage catheter within the suprapatellar space marginal decrease of large suprapatellar effusion.
[2021-11-10 09:22] LABS: Anisocytosis Slight; Basophils # (A) 0.1 k/uL (0-0.2); Basophils % (A) 0 %; Eosinophils % (A) 0 %; HCT 20.9 % (39.0-53.0); Hypochromasia Moderate; Lymphocytes # (A) 1.2 k/uL (1.0-4.8); Lymphocytes % (A) 8 %; MCH 27.8 pg (25.0-35.0); MCHC 30.8 g/dL (31.0-37.0); MCV 90.4 fL (80.0-100.0); Mean Platelet Volume 7.1; Monocytes # (A) 0.7 k/uL (0-1.0); Monocytes % (A) 5 %; Neutrophils # (A) 12.6 k/uL (1.3-7.7); Neutrophils % (A) 85 %; Platelet Count 807 k/uL (150-450); RBC 2.31 m/uL (4.30-5.90); RDW 16.6 % (11.5-15.5); WBC 14.8 k/uL (3.8-10.6)
[2021-11-10 10:19] LABS: HGB 6.4 gm/dL (13.0-17.5)
[2021-11-10] MEDS: METOPROLOL TARTRATE 25 MG TAB PO SCH ×2 (10:23→21:51)
[2021-11-10] MEDS: MULTIVITAMINS, THERA 1 EACH TAB PO SCH (10:23)
[2021-11-10] MEDS: LACTATED RINGERS 1,000 ML IV SCH (10:24)
[2021-11-10] MEDS: TORSEMIDE 20 MG TAB PO SCH (10:24)
[2021-11-10] MEDS ORDERED: DESMOPRESSIN ACETATE 20 MCG in SODIUM CHLORIDE 0.9% 50 ML IVPB ONE (11:00)
[2021-11-10] MEDS ORDERED: OCTREOTIDE 100 MCG/ML INJ IVP ONE (11:30)
[2021-11-10] MEDS ORDERED: DARBEPOETIN ALFA 100MCG/0.5ML SYRINGE SQ SCH (12:00)
--- NOTE | 2021-11-10 12:28 | P.PN ---
Subjective Patient is seen for follow-up for end-stage renal disease and underlying bacteremia. Patient's blood cultures are growing staph aureus, MSSA. Blood cultures have been persistently positive. IJ permacath has been discontinued. Patient had a right femoral catheter which was removed on 10/25/2021 Patient is status post I&D of the left hip left knee and left ankle an irrigation and debridement of left calf No significant complaints today Pain seems to have improved. Repeat blood cultures have been negative however IJ permacath was removed as patient was having fever and it did show a vegetation attached to it. Therefore a femoral catheter has been placed. Patient was dialyzed yesterday and he will be maintained on a Sunday schedule. Continues to have low-grade temperature. Status post irrigation of the left hip and knee and calf area currently with a wound VAC Objective - Vital Signs Vital signs: Vital Signs Temp 100.5 F H 11/10/21 08:46 Pulse 134 H 11/10/21 08:46 Resp 16 11/10/21 08:46 BP 134/72 11/10/21 08:46 Pulse Ox 98 11/10/21 08:46 FiO2 Intake & Output 11/09/21 11/10/21 11/10/21 18:59 06:59 18:59 Intake Total 1320 20 90 Output Total 1201 251 Balance 119 -231 90 Weight 72.5 kg Intake: IV 700 20 Oral 90 Blood Product 620 Rc As-1 Unit 310 [id number] Output: Urine 250 Stool 1 1 Hemodialysis 1000 Estimated Blood Loss 200 Other: Voiding Method Urinal Urinal # Voids 0 1 # Bowel Movements 0 - Exam Awake, comfortable, not in any acute distress Alert oriented 3 Abdomen is soft nontender Examination of lower extremity shows mild edema Right femoral catheter noted Wound VAC in the left leg - Labs CBC & Chem 7: 11/10/21 08:23 11/09/21 20:43 Labs: Abnormal Lab Results - Last 24 Hours (Table) 11/09/21 11/09/21 11/10/21 Range/Units 09:43 20:43 08:23 WBC 14.8 H (3.8-10.6) k/uL RBC 2.31 L (4.30-5.90) m/uL Hgb 6.4 L* (13.0-17.5) gm/dL Hct 20.9 L (39.0-53.0) % MCHC 30.8 L (31.0-37.0) g/dL RDW 16.6 H (11.5-15.5) % Plt Count 807 H (150-450) k/uL Neutrophils # 12.6 H (1.3-7.7) k/uL Sodium 132 L (137-145) mmol/L Chloride 96 L (98-107) mmol/L BUN 46 H (9-20) mg/dL Creatinine 6.53 H (0.66-1.25) mg/dL Glucose 100 H (74-99) mg/dL Total Bilirubin 1.6 H (0.2-1.3) mg/dL Alkaline Phosphatase 161 H (38-126) U/L C-Reactive Protein (<1.0) mg/dL Albumin 2.7 L (3.5-5.0) g/dL Crossmatch See Detail 11/10/21 Range/Units 08:23 WBC (3.8-10.6) k/uL RBC (4.30-5.90) m/uL Hgb (13.0-17.5) gm/dL Hct (39.0-53.0) % MCHC (31.0-37.0) g/dL RDW (11.5-15.5) % Plt Count (150-450) k/uL Neutrophils # (1.3-7.7) k/uL Sodium (137-145) mmol/L Chloride (98-107) mmol/L BUN (9-20) mg/dL Creatinine (0.66-1.25) mg/dL Glucose (74-99) mg/dL Total Bilirubin (0.2-1.3) mg/dL Alkaline Phosphatase (38-126) U/L C-Reactive Protein 8.8 H (<1.0) mg/dL Albumin (3.5-5.0) g/dL Crossmatch Microbiology - Last 24 Hours (Table) 11/04/21 08:09 Blood Culture - Final Blood No Growth after 144 hours 11/09/21 17:25 Acid Fast Bacilli Culture - Preliminary Knee - Left 11/09/21 17:25 Anaerobic Culture - Preliminary Knee - Left 11/09/21 17:25 Tissue Culture - Preliminary Knee - Left 11/09/21 17:27 Anaerobic Culture - Preliminary Leg - Left 11/09/21 17:27 Wound Culture - Preliminary Leg - Left 11/09/21 17:26 Acid Fast Bacilli Culture - Preliminary Knee - Left 11/09/21 17:23 Acid Fast Bacilli Culture - Preliminary Thigh - Left 11/09/21 17:26 Anaerobic Culture - Preliminary Knee - Left 11/09/21 17:23 Anaerobic Culture - Preliminary Thigh - Left 11/09/21 17:26 Tissue Culture - Preliminary Knee - Left 11/09/21 17:23 Tissue Culture - Preliminary Thigh - Left 11/09/21 17:24 Anaerobic Culture - Preliminary Knee - Left 11/09/21 17:24 Wound Culture - Preliminary Knee - Left 11/08/21 Unknown Gram Stain - Preliminary Knee - Left Body Fluid Culture - Preliminary 11/03/21 08:27 Blood Culture - Final Blood No Growth after 144 hours Assessment and Plan Assessment: 1. End-stage renal disease on hemodialysis on a Sunday schedule. IJ permacath has been removed 2. MSSA bacteremia which is persistent. Status post removal of IJ permacath and placement of temporary femoral catheter a few times. IJ catheter was repla brooke once blood cultures were negative however this had to be removed again as patient was febrile and it was found to have a vegetation attached to it. Patient currently has a femoral tunneled catheter. All his blood cultures have been negative. Patient remains on antibiotics. DEVEN showed no evidence of vegetation 3. Hyperkalemia associated with end-stage renal disease, expect improvement with dialysis 4. Hyponatremia associated with end-stage renal disease expect improvement post dialysis 5. Septic arthritis from persistent bacteremia affecting the left hip, knee and ankle 6. Left leg hematoma/abscess noted on ultrasound, status post aspiration 7. Anemia with no active bleeding noted, maintained on Aranesp. Patient has had multiple packed RBCs transfusion. Reticulocyte count not extremely elevated to suggest significant hemolysis. Plan: Hemodialysis in a.m. Continue increased dose of Aranesp Continue with antibiotics
[2021-11-10] MEDS: ACETAMINOPHEN TAB 325 MG TAB PO PRN (12:43)
[2021-11-10] MEDS: OCTREOTIDE 500 MCG in SODIUM CHLORIDE 0.9% 250 ML IV SCH (12:45)
--- NOTE | 2021-11-10 12:53 | P.PN ---
Subjective Progress Note Date: 11/10/21 This patient is a 26- year old male who is status-post I&D left hip, left knee, left ankle for presumed septic arthritis, and irrigation and debridement left calf for hematoma versus abscess on 10/25/21. He is more recently status-post left hip irrigation and debridement, left knee irrigation and debridement, left calf irrigation and debridement on 11/09/21. Patient is examined bedside this morning. He continues to complain of pain in the left knee and hip. He tolerated breakfast ok. He denies nausea, vomiting. No additional complaints at this time. Objective - Vital Signs Vital signs: Vital Signs Temp 100.5 F H 11/10/21 08:46 Pulse 134 H 11/10/21 08:46 Resp 16 11/10/21 08:46 BP 134/72 11/10/21 08:46 Pulse Ox 98 11/10/21 08:46 FiO2 Intake & Output 11/09/21 11/10/21 11/10/21 18:59 06:59 18:59 Intake Total 1320 20 90 Output Total 1201 251 Balance 119 -231 90 Intake: IV 700 20 Oral 90 Blood Product 620 Rc As-1 Unit 310 [id number] Output: Urine 250 Stool 1 1 Hemodialysis 1000 Estimated Blood Loss 200 Other: Voiding Method Urinal Urinal # Voids 0 1 # Bowel Movements 0 - Exam On examination, patient is sitting up in bed in no apparent distress. He is alert and oriented 3. On inspection of the left lower extremity, dressings in place over the left hip, left knee, left calf. Healing incision at the medial ankle. Hemovac drains in place at the left hip and left knee. Moderate pain with palpation of the hip, thigh, knee. The left ankle is non-tender. The left calf is soft and non-tender to palpation. Motor and sensory function is intact of the LLE. Patient is able to wiggle toes appropriately. Foot is warm and well perfused. - Labs CBC & Chem 7: 11/10/21 08:23 11/09/21 20:43 Labs: Abnormal Lab Results - Last 24 Hours (Table) 11/09/21 11/09/21 11/10/21 Range/Units 09:43 20:43 08:23 WBC 14.8 H (3.8-10.6) k/uL RBC 2.31 L (4.30-5.90) m/uL Hgb 6.4 L* (13.0-17.5) gm/dL Hct 20.9 L (39.0-53.0) % MCHC 30.8 L (31.0-37.0) g/dL RDW 16.6 H (11.5-15.5) % Plt Count 807 H (150-450) k/uL Neutrophils # 12.6 H (1.3-7.7) k/uL Sodium 132 L (137-145) mmol/L Chloride 96 L (98-107) mmol/L BUN 46 H (9-20) mg/dL Creatinine 6.53 H (0.66-1.25) mg/dL Glucose 100 H (74-99) mg/dL Total Bilirubin 1.6 H (0.2-1.3) mg/dL Alkaline Phosphatase 161 H (38-126) U/L C-Reactive Protein (<1.0) mg/dL Albumin 2.7 L (3.5-5.0) g/dL Crossmatch See Detail 11/10/21 Range/Units 08:23 WBC (3.8-10.6) k/uL RBC (4.30-5.90) m/uL Hgb (13.0-17.5) gm/dL Hct (39.0-53.0) % MCHC (31.0-37.0) g/dL RDW (11.5-15.5) % Plt Count (150-450) k/uL Neutrophils # (1.3-7.7) k/uL Sodium (137-145) mmol/L Chloride (98-107) mmol/L BUN (9-20) mg/dL Creatinine (0.66-1.25) mg/dL Glucose (74-99) mg/dL Total Bilirubin (0.2-1.3) mg/dL Alkaline Phosphatase (38-126) U/L C-Reactive Protein 8.8 H (<1.0) mg/dL Albumin (3.5-5.0) g/dL Crossmatch Microbiology - Last 24 Hours (Table) 11/09/21 17:25 Acid Fast Bacilli Culture - Preliminary Knee - Left 11/09/21 17:25 Anaerobic Culture - Preliminary Knee - Left 11/09/21 17:25 Tissue Culture - Preliminary Knee - Left 11/09/21 17:27 Anaerobic Culture - Preliminary Leg - Left 11/09/21 17:27 Wound Culture - Preliminary Leg - Left 11/09/21 17:26 Acid Fast Bacilli Culture - Preliminary Knee - Left 11/09/21 17:23 Acid Fast Bacilli Culture - Preliminary Thigh - Left 11/09/21 17:26 Anaerobic Culture - Preliminary Knee - Left 11/09/21 17:23 Anaerobic Culture - Preliminary Thigh - Left 11/09/21 17:26 Tissue Culture - Preliminary Knee - Left 11/09/21 17:23 Tissue Culture - Preliminary Thigh - Left 11/09/21 17:24 Anaerobic Culture - Preliminary Knee - Left 11/09/21 17:24 Wound Culture - Preliminary Knee - Left 11/08/21 Unknown Gram Stain - Preliminary Knee - Left Body Fluid Culture - Preliminary 11/04/21 08:09 Blood Culture - Preliminary Blood No Growth after 120 hours 11/03/21 08:27 Blood Culture - Final Blood No Growth after 144 hours Assessment and Plan Assessment: Status-post I&D left hip, left knee, left ankle for presumed septic arthritis, and irrigation and debridement left calf for hematoma versus abscess on 10/25/21. Status-post left hip irrigation and debridement, left knee irrigation and debridement, left calf irrigation and debridement on 11/09/21. Plan: - Keep operative dressings intact. Leave hemovac drains in place. - Patient may weight bear as tolerated on the left lower extremity. - Intra-op cultures pending. IV antibiotics per infectious disease. - Medical management per multiple medical specialities following. - Dr. Stokes recommends transfer to a tertiary referral center. We will follow patient as he remains inpatient at our facility.
[2021-11-10] MEDS: ENOXAPARIN 30 MG/0.3 ML SYRINGE SQ SCH (13:06)
--- NOTE | 2021-11-10 14:40 | P.PN ---
Subjective Progress Note Date: 11/10/21 Multiple studies performed yesterday, Right thigh possible hematoma versus infectious versus other - Further work-up performed. No evidence intra-abdominal bleeding. IgG elevated but no monoclonal antibodies identified. No evidence of hemolysis. With patient being off floor for most of day yesterday DDAVP, Sandostatin and Sandostatin drip where not administered therefore today this has been re-ordered.He was seen and examined this am by myself and Dr. rainey. Objective - Vital Signs Vital signs: Vital Signs Temp 100.5 F H 11/10/21 08:46 Pulse 134 H 11/10/21 08:46 Resp 16 11/10/21 08:46 BP 134/72 11/10/21 08:46 Pulse Ox 98 11/10/21 08:46 FiO2 Intake & Output 11/09/21 11/10/21 11/10/21 18:59 06:59 18:59 Intake Total 1320 20 90 Output Total 1201 251 Balance 119 -231 90 Intake: IV 700 20 Oral 90 Blood Product 620 Rc As-1 Unit 310 [id number] Output: Urine 250 Stool 1 1 Hemodialysis 1000 Estimated Blood Loss 200 Other: Voiding Method Urinal Urinal # Voids 0 # Bowel Movements 0 - Exam - Constitutional General appearance: cooperative - EENT Eyes: EOMI ENT: NA/AT - Neck Neck: normal ROM - Respiratory Respiratory: bilateral: diminished - Cardiovascular Rhythm: regularly irregular - Gastrointestinal General gastrointestinal: soft - Integumentary Integumentary: pale - Neurologic Neurologic: CNII-XII intact - Musculoskeletal Musculoskeletal: generalized weakness - Psychiatric Psychiatric: A&O x's 3 - Labs CBC & Chem 7: 11/10/21 08:23 11/09/21 20:43 Labs: Abnormal Lab Results - Last 24 Hours (Table) 11/09/21 11/09/21 11/09/21 Range/Units 07:33 09:43 20:43 WBC 11.9 H (3.8-10.6) k/uL RBC 2.38 L (4.30-5.90) m/uL Hgb 6.9 L* (13.0-17.5) gm/dL Hct 21.3 L (39.0-53.0) % RDW 16.8 H (11.5-15.5) % Plt Count 846 H (150-450) k/uL Neutrophils # 9.3 H (1.3-7.7) k/uL Sodium 132 L (137-145) mmol/L Chloride 96 L (98-107) mmol/L BUN 46 H (9-20) mg/dL Creatinine 6.53 H (0.66-1.25) mg/dL Glucose 100 H (74-99) mg/dL Total Bilirubin 1.6 H (0.2-1.3) mg/dL Alkaline Phosphatase 161 H (38-126) U/L Albumin 2.7 L (3.5-5.0) g/dL Crossmatch See Detail Microbiology - Last 24 Hours (Table) 11/08/21 Unknown Gram Stain - Preliminary Knee - Left Body Fluid Culture - Preliminary 11/04/21 08:09 Blood Culture - Preliminary Blood No Growth after 120 hours 11/03/21 08:27 Blood Culture - Final Blood No Growth after 144 hours Assessment and Plan (1) Renal failure Current Visit: Yes Status: Acute Code(s): N19 - UNSPECIFIED KIDNEY FAILURE SNOMED Code(s): 63146687 (2) Septic arthritis of multiple joints Current Visit: Yes Status: Acute Code(s): M00.9 - PYOGENIC ARTHRITIS, UNSPECIFIED SNOMED Code(s): 06334938 (3) Septic joint of left knee joint Current Visit: Yes Status: Acute Code(s): M00.9 - PYOGENIC ARTHRITIS, UNSPECIFIED SNOMED Code(s): 483686178 (4) MSSA bacteremia Current Visit: No Status: Acute Code(s): R78.81 - BACTEREMIA; B95.61 - MET HICILLIN SUSCEP STAPH INFCT CAUSING DIS CLASSD [id number] SNOMED Code(s): 428 028077 (5) Positive blood culture Current Visit: No Status: Acute Code(s): R78.81 - BACTEREMIA SNOMED Code(s): 446526376 (6) Normocytic anemia Current Visit: Yes Status: Acute Code(s): D64.9 - ANEMIA, UNSPECIFIED SNOMED Code(s): 828844974 Plan: Patient in and out of OR yesterday: DDAVP Sandostatin drip x24 Reaccess bleeding With recent increased prolonged sepsis, multiple abx, inflammation, known end stage kidney disease, and refractory transfusions most likely worsening anemia related to additional inflammation and increased blood loss with hematomas. No evidence of hemolysis. Not a candidate for Iron infusion with ferritin level elevated Discussed with primary team Dr. Pompa: I have completed the full history and physical and agree with above dictation, dictated as a ascribe.
--- NOTE | 2021-11-10 15:02 | P.PN ---
Progress Note - Text Progress Note Date: 11/10/21 Chief Complaint: Not feeling well This is a 26-year-old patient, follows with Dr. Travis moore. Chronic stable medical conditions include end-stage kidney disease on hemodialysis Sunday and Sunday, essential hypertension, secondary hyperparathyroidism. Patient came in because of not feeling well. Unsteady weak diet and rundown. Unsure about fever. Blood drawn at the nephrology dialysis center was positive for gram-positive cocci. IV vancomycin was given. Patient is slightly delirious. Consultation nephrology denies D was done. Appetite fair denies any respiratory or urinary symptoms. Admitted with sepsis with positive blood culture from the dialysis center, delirium. IV vancomycin started. October 20: Tired. Decreased oral intake. Dialysis catheter to be taken out today. Patient received dialysis yesterday. Discussed with patient. Tired. Repeat blood cultures from yesterday growing staph aureus. October 21: Less delirious today. Dialysis catheter has been removed yesterday. Blood cultures from here growing staph aureus. Patient not hungry. Did not eat his breakfast. Tired. Patient complaining of pain around the left hip area. I ordered Doppler ultrasound that came back to be negative. Hip x-ray was also ordered and came back to be unremarkable. Orthopedics consulted. 10/23/2021 Patient is seen and evaluated in room at bedside; patient complains of generalized pain more so in Lasix; no complaint of chest pain or shortness of breath Vital signs are reviewed; blood pressure 169/98, pulse 111 Lab review shows a sodium of 123 which is down from 126 yesterday, potassium 5.9, bicarbonate 18, BUN/creatinine of 142/13.1 Repeat blood cultures drawn yesterday are reported positive; plan was to reinsert permacath if blood cultures were negative; nephrology recommending to proceed with placement of Angel catheter and dialyze the patient today and tomorrow due to worsening hyponatremia with plans to remove catheter after dialysis; patient will have a permacath placement once her cultures turn negative with possibility of paratonia dialysis in the meantime 10/24/2021 Patient is seen in follow-up this morning currently receiving hemodialysis. Multiple medical consultations including nephrology and infectious disease following. Blood cultures and catheter tip culture showing staph aureus and awaiting for bacteremia clearance. Patient will also need replacement dialysis catheter once cleared by infectious disease. Patient is currently maintained on 1500 mL fluid restrictions and will slightly increase as patient reports he is thirsty and not getting enough intake. Patient is currently afebrile and denies any chest pain or palpitations. 10/25/2021 Patient is seen in follow-up this morning and hemoglobin was found to be 6.8 and will transfuse 1 unit of PRBC. Patient is scheduled to undergo incision and drainage with possible debridement of the left hip and left lower extremity with orthopedics today. Patient also to have dialysis catheter removed by vascular surgery. Patient continues on fluid restrictions and is currently nothing by mouth for the procedure and diuretics being held. No plans for hemodialysis today. Patient is maintained on Sunday/Sunday/Sunday schedule and will gabby nue with nephrology following closely. Patient is also maintained on IV antibiotics with infectious disease following closely and will continue. Multiple culture showing MSSA and hopeful for cultures during surgery today. She is currently afebrile and denies chest pain or shortness of breath. Patient reports left leg pain. 10/26/2021 Patient is seen in follow-up today status post incision and drainage of the left lower extremity and left hip with orthopedics in currently maintained on IV antibiotics in the form of cefazolin with anxiety following closely. Patient being transitioned to nafcillin while awaiting for finalized cultures of the deep tissue cultures that were obtained during surgery. Patient had dialysis catheter removed and waiting prior to insertion of new catheter. 2-D echo was also ordered to assess for any vegetation. Patient continues with fevers and denies any chest pain or shortness of breath. Hemoglobin was 7.1 today after 1 unit of PRBCs yesterday. WBC trending up at 15.4 and BNP is noted with a creatinine of 8.08. Recommend close monitoring of vital signs and temperature control and continue to await for cultures. Patient reports his pain is curre ntly manageable and denies any chest pain or shortness of breath. 10/27/2021 Patient is seen today and continues on IV abx with multiple medical consultations following and blood cultures have been positive and awaiting repeat blood cultures for clearance of bacteremia. ID following closely and patient also remains without a dialysis catheter at this time. Patient continues with fevers as well and is status post I&D and debridement with ortho post op day 2. Patient hemoglobin is 6.9 and ordered a unit of prbc. Will hold for now and repeat am labs as patient has also not had dialysis for the last 2 days. Creatinine is 8 and nephrology following closely. Patient is extremely weak and will consult PT/OT. Patient denies chest pain or shortness of breath. 10/28/2021 Patient evaluated today continues to have positive blood cultures and awaiting repeat blood cultures that were drawn yesterday to monitor for clearance of bacteremia. Most recent have been negative for 24 hours and will await for 72 hour clearance prior to dialysis catheter placement. Patient continues with low-grade temps of 99 this morning. Patient also maintained on nafcillin with infectious disease following. Asians potassium critically elevated at 6.1 and hemoglobin remained 6.9. WBC is elevated as well at 22 and sodium is found to be 125 with a creatinine of 11.48. Nephrology following closely and may likely need a dialysis catheter temporary for hemodialysis. Ortho following and surgical drains removed of the left lower extremity. PT consulted. 10/29/2021 Patient is seen today and afebrile and maintained on IV antibiotics with ID following. Vascular surgery to place right chest wall dialysis catheter as patient needs emergent dialysis as he has continued elevated potassium and creatinine is above 11. Patient continues with weakness and will continue with PT and advance activity as tolerated. Patient received 1 unit of blood with hemoglobin 7.7. No reports of chest pain or shortness of breath. Encouraged oral intake. Patient was seen and covered by [facility] hospitalist from October 22 through October 29 10/30/2021: Patient getting hemodialysis today. Decreased appetite. On IV nafcillin. No pain. Laying in bed. Patient in the last few days however I&D of septic arthritis including left hip left knee and left ankle. All cultures growing MSSA. 10/31/2021: Two-level good breakfast. Not hungry for lunch. On IV nafcillin. And wish to be out of bed. Patient to be changed over to Ancef at dialysis upon discharge. Hemoglobin 6.9. 1 unit of PRBC ordered. 11/01/2021: On IV nafcillin. Tachycardia. Cardiology consulted. Discussed with the patient. We will try Marinol. 11/02/2021: Remains tachycardic. Spiked a fever to 101 earlier. Discussed with ID. DEVEN ordered with cardiology. Patient started on Marinol yesterday. Feels tired. Hemoglobin 6.7. 1 unit of blood ordered. Hemodialysis today. 11/03/2021: Patient underwent DEVEN E by Dr. Moore today. 1 cm x 0.5 cm of vegetation noted on the catheter tip. Discussed with him, Dr. Mari from nephrology and Dr. Sevilla from ID. It was decided to remove the catheter after dialysis today. Patient never temporary dialysis catheter placed. Discussed with the patient. 11/04/2021: Right jugular dialysis catheter was removed by Dr. Christy yesterday. Patient has a left upper extremity radiocephalic fistula from [facility] 2020. Failure to mature. Patient somewhat disappointed because of his lengthy stay in the hospital. Discussed at length with him and his friend at the bedside. He does understand. But feels frustrated. 11/05/2021: Oral intake variable. Has been feeling depressed. Consult psychiatry. Hemoglobin 6.4. Unit of blood ordered. Likely hemolysis. No evidence of GI bleed. 11/06/2021: Not much of an appetite. tunneled femoral cath placement placement today. Plan for dialysis today and tomorrow. Seen by Dr. Pelaez from surgery to rule out a GI bleed. Hemoglobin dropped again. Another unit of blood ordered. 11/07/2021: No fever. Decreased oral intake. Hemodialysis today. Will change Marinol to Megace. Has some swelling of the left knee. We will get ultrasound to rule out any significant hematoma. November 08: Patient spiked a fever of 102.9 last night. Patient does feel low. Decreased appetite. Discussed with ID. Dr. Stokes from or to to reevaluate left knee for drainage. Could be the source of fever November 09: Left knee swelling was drained by orthopedic PA yesterday. Formal load pending. Cloudy and bloody. This morning case was discussed with Dr. Laws from hematology. Computed tomography scan abdomen pelvis is ordered. Complex masslike area anterior thigh and the left possible hematoma. An additional complex lesion noted in the region of the right iliac musculature. Relevant atrophic changes. This was later discussed with Dr. Laws. Could be from platelet dysfunction. IV octreotide was ordered. Left leg MRI showing a 12 cm x 3 cm. This was discussed with Dr. Stokes from orthopedics. Also discussed with Dr. Christy from vascular. Fidelity to be hematoma. Patient also done for I&D of his left knee by Dr. Stokes this afternoon Spoke to Dr. Stokes in the evening: -Infected fluid was taken out of the left knee. -Large hematoma removed from the left thigh and from the left hip. Several areas of oozing. Discussed . Patient is already on IV octreotide. Cultures have been sent off. November 10: Hemoglobin dropped again today. 1 unit of blood ordered. Patient is rather scared and tearful. Discussed. Reassured. Sandostatin drip. Hemovac in place. 4 left knee and left hip. Active Medications Acetaminophen (Acetaminophen Tab 325 Mg Tab) 650 mg PO Q4HR PRN PRN Reason: Fever Last Admin: 11/10/21 12:43 Dose: 650 mg Acetaminophen/Codeine Phosphate (Acetaminophen-Codeine 300-30mg Tab) 1 each PO Q6HR PRN PRN Reason: Pain Last Admin: 11/10/21 10:35 Dose: 1 each Darbepoetin Luis E (Darbepoetin Luis E 100mcg/0.5ml Syringe) 100 mcg SQ Q7D [facility] Last Admin: 11/10/21 10:27 Dose: 100 mcg Nafcillin Sodium 2 gm/ (Dextrose/Water) 100 mls @ 100 mls/hr IVPB Q4H [facility]; Protocol Last Admin: 11/10/21 13:13 Dose: 100 mls/hr Lactated Ringer's (Lactated Ringers) 1,000 mls @ 20 mls/hr IV .Q24H [facility] Last Admin: 11/10/21 10:24 Dose: Not Given Octreotide Acetate 500 mcg/ (Sodium Chloride) 250 mls @ 12.5 mls/hr IV .Q20H [facility] Stop: 11/11/21 11:29 Last Admin: 11/10/21 12:45 Dose: 25 mcg/hr, 12.5 mls/hr Lorazepam (Lorazepam 0.5 Mg Tab) 0.5 mg PO Q6HR PRN PRN Reason: Anxiety Last Admin: 11/10/21 00:38 Dose: 0.5 mg Metoprolol Tartrate (Metoprolol Tartrate 25 Mg Tab) 25 mg PO BID [facility] Last Admin: 11/10/21 10:23 Dose: 25 mg Morphine Sulfate (Morphine Sulfate 2 Mg/Ml Syringe) 2 mg IVP Q4HR PRN PRN Reason: Pain/Discomfort Last Admin: 11/10/21 10:36 Dose: 2 mg Multivitamins (Multivitamins, Thera 1 Each Tab) 1 each PO DAILY [facility] Last Admin: 11/10/21 10:23 Dose: 1 each Naloxone HCl (Naloxone 0.4 Mg/Ml 1 Ml Vial) 0.2 mg IV Q2M PRN PRN Reason: Opioid Reversal Sevelamer Carbonate (Sevelamer 800 Mg Tab) 1,600 mg PO TID-W/MEALS [facility] Last Admin: 11/10/21 12:43 Dose: 1,600 mg Thiamine HCl (Thiamine 100 Mg Tab) 100 mg PO BID-W/MEALS [facility] Last Admin: 11/10/21 06:27 Dose: 100 mg Torsemide (Torsemide 20 Mg Tab) 80 mg PO DAILY [facility] Last Admin: 11/10/21 10:24 Dose: 80 mg Zolpidem Tartrate (Zolpidem 5 Mg Tab) 5 mg PO HS [facility] Last Admin: 11/09/21 20:24 Dose: 5 mg Past medical history to include: End-stage kidney disease on hemodialysis, anemia of CK D, minimal bone disease Social history: Lives with his mother. Smokes about 5 bowls of marijuana daily. No alcohol or cigarette smoking. Family history: Diabetes, COPD, A. fib, CHF Physical examination: VITAL SIGNS: 98.3, 107, 16, 132/73, 92% room air GENERAL: Laying in bed, awake EYES: Pupils equal. Conjunctiva normal. HEENT: External appearance of nose and ears normal, oral cavity grossly normal. NECK: JVD not raised; masses not palpable. HEART: First and second heart sounds are normal; no edema. LUNGS: Respiratory rate normal; clear to auscultation. ABDOMEN: Soft, nontender, liver spleen not palpable, no masses palpable. PSYCH: AO 3, mood and affect, anxious MUSCULOSKELETAL:No Clubbing/cyanosis;muscles-grossly intact. Hemovac left knee/left hip. Dressing in place. INVESTIGATIONS, reviewed in the clinical context: November 10: WBC 14.8 hemoglobin 6.4 platelets 807 Lower extremity MRI [November 09]: Suspicious for hematoma Abdomen pelvis CT: [November 09]: Suspicious for right iliac hematoma November 07: WBC 11.9 hemoglobin 6.9 platelets 846 Dialysis Catheter tip culture: Negative Ultrasound left knee: Edema of the left knee. November 06: WBC 15.9 hemoglobin 6.7 platelets 733 potassium 4.9 creatinine 10.49. Haptoglobin 259 November 05: WBC 17.4 hemoglobin 6.4 potassium 4.7 creatinine 9.05 November 03: WBC 18.7, hemoglobin 7.1 platelets and 5 to potassium 4.2 creatinine 7.73 DEVEN [November 03]: 1 cm x 0.5 cm vegetation on catheter tip November 02: White count 8.2 hemoglobin 6.7 platelets 757 October 31: WBC 19 hemoglobin 6.9 potassium 4.5 creatinine 8.15 October 30: White count 19.8 hemoglobin 7.1 platelet 774 sodium 126 potassium 5.4 creatinine 9.96 October 21: Sodium 127 potassium 5.4 twice a day 2 creatinine 9.1 Urine drug screen: Positive for opiates, benzodiazepine, marijuana White count 12.4 hemoglobin 9 platelets 170 sodium 126 potassium 5.3 rate 80 creatinine 10.9 phosphorus 5.6 and magnesium 2.8 bilirubin 1.8 EKG tracing personally reviewed by me-sinus tachycardia rate of 1:30. Right bundle branch block pattern. Nonspecific ST segment changes. Assessment and plan: -Sepsis with blood cultures positive for MSSA. done at the dialysis center and from October 19.: Slow to respond IV nafcillin Dialysis catheter removed October 20. Blood culture negative on October 27. DEVEN on November 03 showing vegetation on catheter. Right internal jugular Dialysis catheter removed November 03. Tunneled Right femoral dialysis catheter placed on November 06. Dialysis catheter tip culture negative -Hematoma different sites including left thigh, left knee, right iliac muscle. Fidelity to be from platelet dysfunction given hemodialysis. Large hematoma removed from left hip, left thigh. Hemovac in place. -Polyarticular septic arthritis including the left hip, left knee, left ankle with I&D of all the joints. Recurrent infection of left knee joint. IV nafcillin. Left knee I&D carried out again on November [address] Stokes. -Acute delirium from sepsis: Improved Treat underlying infection -End-stage kidney disease on hemodialysis Sunday and Sunday On dialysis schedule -Anemia of chronic kidney disease, dropped hemoglobin to 6.7. Follow H&H. -Acute hemolysis from sepsis causing recurrent drop in hemoglobin Received 6 unit of blood -mineral bone disease/CK D Supplements -Hyperphosphatemia secondary to CK D Renvela -Hypervolemic hyponatremia: Slow to respond Encourage oral intake. Fluid to be taken off at dialysis. -Anorexia multifactorial Megace 5 mg twice a day -Sinus tachycardia likely combination of deconditioning and infection Another unit of blood ordered. Hemovac in place. Patient was reassured. IV octreotide drip in place.
--- NOTE | 2021-11-10 17:05 | NM ---
EXAMINATION TYPE: NM WBC whole body DATE OF EXAM: 11/10/2021 COMPARISON: CT abdomen and pelvis yesterday. HISTORY: Fever unknown origin. Bacteremia. TECHNIQUE: Following administration of 21.9 mCi Tc99m Ceretec. Images obtained 3 hours post injecti on. FINDINGS: Normal physiological tracer activity is noted in the liver and spleen and in the bone marrow of the a xial and appendicular skeleton. Abnormal of increased uptake in the lungs could reflect diffuse infil trates. No recent x-ray or CT thorax for correlation. CT abdomen study shows a symmetric small left p leural effusion and left basilar consolidation. No abnormal radiotracer uptake in the abdomen or pelv is to suggest infection at this level. Mild uptake medial left proximal leg is noted correlate for in fectious process at this level. IMPRESSION: As above.
[2021-11-10] MEDS: ZOLPIDEM 5 MG TAB PO SCH (21:50)
[2021-11-11] MEDS: NAFCILLIN 2 GM in DEXTROSE 5% IN WATER 100 ML IVPB SCH ×12 (01:14→20:57)
[2021-11-11] MEDS: ACETAMINOPHEN TAB 325 MG TAB PO PRN ×4 (01:22→16:58)
[2021-11-11] MEDS: SEVELAMER 800 MG TAB PO SCH ×3 (06:30→16:58)
[2021-11-11] MEDS: THIAMINE 100 MG TAB PO SCH ×2 (06:31→12:56)
[2021-11-11] MEDS: LACTATED RINGERS 1,000 ML IV SCH (07:35)
[2021-11-11 08:29] LABS: Albumin 2.5 g/dL (3.5-5.0); Calcium 8.3 mg/dL (8.4-10.2); Magnesium 2.4 mg/dL (1.6-2.3); Total Bilirubin 2.8 mg/dL (0.2-1.3); Total Protein 6.9 g/dL (6.3-8.2)
[2021-11-11] MEDS: OCTREOTIDE 500 MCG in SODIUM CHLORIDE 0.9% 250 ML IV SCH (08:45)
[2021-11-11 08:51] LABS: Potassium 6.1 mmol/L (3.5-5.1)
[2021-11-11 09:22] LABS: Anisocytosis Slight; Basophils # (A) 0.1 k/uL (0-0.2); Basophils % (A) 1 %; Eosinophils # (A) 0.4 k/uL (0-0.7); Eosinophils % (A) 2 %; HCT 21.4 % (39.0-53.0); Hypochromasia Slight; Lymphocytes # (A) 1.4 k/uL (1.0-4.8); Lymphocytes % (A) 10 %; MCH 27.1 pg (25.0-35.0); MCHC 30.6 g/dL (31.0-37.0); MCV 88.4 fL (80.0-100.0); Mean Platelet Volume 8.2; Monocytes # (A) 0.7 k/uL (0-1.0); Monocytes % (A) 5 %; Neutrophils # (A) 12.2 k/uL (1.3-7.7); Neutrophils % (A) 82 %; Platelet Count 692 k/uL (150-450); RBC 2.42 m/uL (4.30-5.90); RDW 16.6 % (11.5-15.5); WBC 14.9 k/uL (3.8-10.6)
[2021-11-11 09:27] LABS: HGB 6.6 gm/dL (13.0-17.5)
--- NOTE | 2021-11-11 10:17 | P.PN ---
Subjective Patient is seen for follow-up for end-stage renal disease and underlying bacteremia. Patient's blood cultures are growing staph aureus, MSSA. Blood cultures have been persistently positive. IJ permacath has been discontinued. Patient had a right femoral catheter which was removed on 10/25/2021 Patient is status post I&D of the left hip left knee and left ankle an irrigation and debridement of left calf No significant complaints today Pain seems to have improved. Repeat blood cultures have been negative however IJ permacath was removed as patient was having fever and it did show a vegetation attached to it. Therefore a femoral catheter has been placed. Patient is maintained on a Sunday schedule. Patient has continued to have low-grade temperature. Status post irrigation of the left hip and knee and calf area currently with a wound VAC Overnight there has not been any fever. Overall patient states he is feeling better. He is currently seen on hemodialysis. Patient is tolerating his treatment well. The pressure is high. Goal UF set for about 2-2.5 L. Pain is better controlled. All blood cultures continue to remain negative Objective - Vital Signs Vital signs: Vital Signs Temp 98.7 F 11/11/21 09:39 Pulse 101 H 11/11/21 09:39 Resp 18 11/11/21 09:39 BP 167/91 11/11/21 09:39 Pulse Ox 95 11/11/21 09:39 FiO2 Intake & Output 11/10/21 11/11/21 11/11/21 18:59 06:59 18:59 Intake Total 1020 240 180 Output Total 2 Balance 1020 238 180 Weight 72.5 kg Intake: IV 380 Desmopressin Acetate 20 50 mcg In Sodium Chloride 0. 9% 50 ml @ 200 mls/hr IVPB ONCE ONE Rx#: [id number] Invasive Line 7 10 Invasive Line 9 20 Nafcillin 2 gm In 300 Dextrose 5% in Water 100 ml @ 100 mls/hr IVPB Q4H [facility] Rx#:[id number] Oral 330 240 180 Blood Product 310 Rc As-1 Unit 310 [id number] Output: Stool 2 Other: Voiding Method Urinal # Voids 1 1 - Exam Awake, comfortable, not in any acute distress Alert oriented 3 Abdomen is soft nontender Examination of lower extremity shows mild edema Right femoral catheter noted Wound VAC in the left leg - Labs CBC & Chem 7: 11/11/21 07:13 11/11/21 07:25 Labs: Abnormal Lab Results - Last 24 Hours (Table) 11/09/21 11/10/21 11/11/21 Range/Units 09:43 08:23 07:13 WBC 14.8 H 14.9 H (3.8-10.6) k/uL RBC 2.31 L 2.42 L (4.30-5.90) m/uL Hgb 6.4 L* 6.6 L* (13.0-17.5) gm/dL Hct 20.9 L 21.4 L (39.0-53.0) % MCHC 30.8 L 30.6 L (31.0-37.0) g/dL RDW 16.6 H 16.6 H (11.5-15.5) % Plt Count 807 H (150-450) k/uL Neutrophils # 12.6 H (1.3-7.7) k/uL Sodium (137-145) mmol/L Potassium (3.5-5.1) mmol/L Chloride (98-107) mmol/L BUN (9-20) mg/dL Creatinine (0.66-1.25) mg/dL Calcium (8.4-10.2) mg/dL Magnesium (1.6-2.3) mg/dL Total Bilirubin (0.2-1.3) mg/dL Alkaline Phosphatase (38-126) U/L Albumin (3.5-5.0) g/dL Crossmatch See Detail 11/11/21 Range/Units 07:25 WBC (3.8-10.6) k/uL RBC (4.30-5.90) m/uL Hgb (13.0-17.5) gm/dL Hct (39.0-53.0) % MCHC (31.0-37.0) g/dL RDW (11.5-15.5) % Plt Count (150-450) k/uL Neutrophils # (1.3-7.7) k/uL Sodium 130 L (137-145) mmol/L Potassium 6.1 H* (3.5-5.1) mmol/L Chloride 93 L (98-107) mmol/L BUN 63 H (9-20) mg/dL Creatinine 9.20 H* (0.66-1.25) mg/dL Calcium 8.3 L (8.4-10.2) mg/dL Magnesium 2.4 H (1.6-2.3) mg/dL Total Bilirubin 2.8 H (0.2-1.3) mg/dL Alkaline Phosphatase 182 H (38-126) U/L Albumin 2.5 L (3.5-5.0) g/dL Crossmatch Microbiology - Last 24 Hours (Table) 11/08/21 Unknown Gram Stain - Preliminary Knee - Left Body Fluid Culture - Preliminary 11/09/21 17:25 Gram Stain - Preliminary Knee - Left Tissue Culture - Preliminary 11/09/21 17:27 Gram Stain - Preliminary Leg - Left Wound Culture - Preliminary 11/09/21 17:24 Gram Stain - Preliminary Knee - Left Wound Culture - Preliminary 11/09/21 17:23 Gram Stain - Preliminary Thigh - Left Tissue Culture - Preliminary 11/09/21 17:26 Gram Stain - Preliminary Knee - Left Tissue Culture - Preliminary 11/04/21 08:09 Blood Culture - Final Blood No Growth after 144 hours 11/09/21 17:25 Acid Fast Bacilli Culture - Preliminary Knee - Left 11/09/21 17:25 Anaerobic Culture - Preliminary Knee - Left 11/09/21 17:27 Anaerobic Culture - Preliminary Leg - Left 11/09/21 17:26 Acid Fast Bacilli Culture - Preliminary Knee - Left 11/09/21 17:23 Acid Fast Bacilli Culture - Preliminary Thigh - Left 11/09/21 17:26 Anaerobic Culture - Preliminary Knee - Left 11/09/21 17:23 Anaerobic Culture - Preliminary Thigh - Left 11/09/21 17:24 Anaerobic Culture - Preliminary Knee - Left Assessment and Plan Assessment: 1. End-stage renal disease on hemodialysis on a Sunday schedule. IJ permacath has been removed 2. MSSA bacteremia which is persistent. Status post removal of IJ permacath and placement of temporary femoral catheter a few times. IJ catheter was replaced once blood cultures were negative however this had to be removed again as patient was febrile and it was found to have a vegetation attached to it. Patient currently has a femoral tunneled catheter. All his blood cultures have been negative. Patient remains on antibiotics. DEVEN showed no evidence of vegetation 3. Hyperkalemia associated with end-stage renal disease, expect improvement with dialysis 4. Hyponatremia associated with end-stage renal disease expect improvement post dialysis 5. Septic arthritis from persistent bacteremia affecting the left hip, knee and ankle 6. Left leg hematoma/abscess noted on ultrasound, status post aspiration 7. Anemia with no active bleeding noted, maintained on Aranesp. Patient has had multiple packed RBCs transfusion. Reticulocyte count is not extremely elevated to suggest significant hemolysis. Plan: Maintain hemodialysis on a Sunday schedule Possible discharge and follow-up as outpatient on Sunday for dialysis. Antibiotics as per ID
[2021-11-11] MEDS: MULTIVITAMINS, THERA 1 EACH TAB PO SCH (12:56)
[2021-11-11] MEDS: METOPROLOL TARTRATE 25 MG TAB PO SCH ×2 (12:56→20:58)
[2021-11-11] MEDS: TORSEMIDE 20 MG TAB PO SCH (12:56)
[2021-11-11 13:23] LABS: RBC Morphology Normal
[2021-11-11] MEDS: MORPHINE SULFATE 2 MG/ML SYRINGE IVP PRN (13:46)
--- NOTE | 2021-11-11 14:53 | P.PN ---
Progress Note - Text Progress Note Date: 11/11/21 Chief Complaint: Not feeling well This is a 26-year-old patient, follows with Dr. Travis moore. Chronic stable medical conditions include end-stage kidney disease on hemodialysis Sunday and Sunday, essential hypertension, secondary hyperparathyroidism. Patient came in because of not feeling well. Unsteady weak diet and rundown. Unsure about fever. Blood drawn at the nephrology dialysis center was positive for gram-positive cocci. IV vancomycin was given. Patient is slightly delirious. Consultation nephrology denies D was done. Appetite fair denies any respiratory or urinary symptoms. Admitted with sepsis with positive blood culture from the dialysis center, delirium. IV vancomycin started. October 20: Tired. Decreased oral intake. Dialysis catheter to be taken out today. Patient received dialysis yesterday. Discussed with patient. Tired. Repeat blood cultures from yesterday growing staph aureus. October 21: Less delirious today. Dialysis catheter has been removed yesterday. Blood cultures from here growing staph aureus. Patient not hungry. Did not eat his breakfast. Tired. Patient complaining of pain around the left hip area. I ordered Doppler ultrasound that came back to be negative. Hip x-ray was also ordered and came back to be unremarkable. Orthopedics consulted. 10/23/2021 Patient is seen and evaluated in room at bedside; patient complains of generalized pain more so in Lasix; no complaint of chest pain or shortness of breath Vital signs are reviewed; blood pressure 169/98, pulse 111 Lab review shows a sodium of 123 which is down from 126 yesterday, potassium 5.9, bicarbonate 18, BUN/creatinine of 142/13.1 Repeat blood cultures drawn yesterday are reported positive; plan was to reinsert permacath if blood cultures were negative; nephrology recommending to proceed with placement of Angel catheter and dialyze the patient today and tomorrow due to worsening hyponatremia with plans to remove catheter after dialysis; patient will have a permacath placement once her cultures turn negative with possibility of paratonia dialysis in the meantime 10/24/2021 Patient is seen in follow-up this morning currently receiving hemodialysis. Multiple medical consultations including nephrology and infectious disease following. Blood cultures and catheter tip culture showing staph aureus and awaiting for bacteremia clearance. Patient will also need replacement dialysis catheter once cleared by infectious disease. Patient is currently maintained on 1500 mL fluid restrictions and will slightly increase as patient reports he is thirsty and not getting enough intake. Patient is currently afebrile and denies any chest pain or palpitations. 10/25/2021 Patient is seen in follow-up this morning and hemoglobin was found to be 6.8 and will transfuse 1 unit of PRBC. Patient is scheduled to undergo incision and drainage with possible debridement of the left hip and left lower extremity with orthopedics today. Patient also to have dialysis catheter removed by vascular surgery. Patient continues on fluid restrictions and is currently nothing by mouth for the procedure and diuretics being held. No plans for hemodialysis today. Patient is maintained on Sunday/Sunday/Sunday schedule and will gabby nue with nephrology following closely. Patient is also maintained on IV antibiotics with infectious disease following closely and will continue. Multiple culture showing MSSA and hopeful for cultures during surgery today. She is currently afebrile and denies chest pain or shortness of breath. Patient reports left leg pain. 10/26/2021 Patient is seen in follow-up today status post incision and drainage of the left lower extremity and left hip with orthopedics in currently maintained on IV antibiotics in the form of cefazolin with anxiety following closely. Patient being transitioned to nafcillin while awaiting for finalized cultures of the deep tissue cultures that were obtained during surgery. Patient had dialysis catheter removed and waiting prior to insertion of new catheter. 2-D echo was also ordered to assess for any vegetation. Patient continues with fevers and denies any chest pain or shortness of breath. Hemoglobin was 7.1 today after 1 unit of PRBCs yesterday. WBC trending up at 15.4 and BNP is noted with a creatinine of 8.08. Recommend close monitoring of vital signs and temperature control and continue to await for cultures. Patient reports his pain is curre ntly manageable and denies any chest pain or shortness of breath. 10/27/2021 Patient is seen today and continues on IV abx with multiple medical consultations following and blood cultures have been positive and awaiting repeat blood cultures for clearance of bacteremia. ID following closely and patient also remains without a dialysis catheter at this time. Patient continues with fevers as well and is status post I&D and debridement with ortho post op day 2. Patient hemoglobin is 6.9 and ordered a unit of prbc. Will hold for now and repeat am labs as patient has also not had dialysis for the last 2 days. Creatinine is 8 and nephrology following closely. Patient is extremely weak and will consult PT/OT. Patient denies chest pain or shortness of breath. 10/28/2021 Patient evaluated today continues to have positive blood cultures and awaiting repeat blood cultures that were drawn yesterday to monitor for clearance of bacteremia. Most recent have been negative for 24 hours and will await for 72 hour clearance prior to dialysis catheter placement. Patient continues with low-grade temps of 99 this morning. Patient also maintained on nafcillin with infectious disease following. Asians potassium critically elevated at 6.1 and hemoglobin remained 6.9. WBC is elevated as well at 22 and sodium is found to be 125 with a creatinine of 11.48. Nephrology following closely and may likely need a dialysis catheter temporary for hemodialysis. Ortho following and surgical drains removed of the left lower extremity. PT consulted. 10/29/2021 Patient is seen today and afebrile and maintained on IV antibiotics with ID following. Vascular surgery to place right chest wall dialysis catheter as patient needs emergent dialysis as he has continued elevated potassium and creatinine is above 11. Patient continues with weakness and will continue with PT and advance activity as tolerated. Patient received 1 unit of blood with hemoglobin 7.7. No reports of chest pain or shortness of breath. Encouraged oral intake. Patient was seen and covered by [facility] hospitalist from October 22 through October 29 10/30/2021: Patient getting hemodialysis today. Decreased appetite. On IV nafcillin. No pain. Laying in bed. Patient in the last few days however I&D of septic arthritis including left hip left knee and left ankle. All cultures growing MSSA. 10/31/2021: Two-level good breakfast. Not hungry for lunch. On IV nafcillin. And wish to be out of bed. Patient to be changed over to Ancef at dialysis upon discharge. Hemoglobin 6.9. 1 unit of PRBC ordered. 11/01/2021: On IV nafcillin. Tachycardia. Cardiology consulted. Discussed with the patient. We will try Marinol. 11/02/2021: Remains tachycardic. Spiked a fever to 101 earlier. Discussed with ID. DEVEN ordered with cardiology. Patient started on Marinol yesterday. Feels tired. Hemoglobin 6.7. 1 unit of blood ordered. Hemodialysis today. 11/03/2021: Patient underwent DEVEN E by Dr. Moore today. 1 cm x 0.5 cm of vegetation noted on the catheter tip. Discussed with him, Dr. Mari from nephrology and Dr. Sevilla from ID. It was decided to remove the catheter after dialysis today. Patient never temporary dialysis catheter placed. Discussed with the patient. 11/04/2021: Right jugular dialysis catheter was removed by Dr. Christy yesterday. Patient has a left upper extremity radiocephalic fistula from [facility] 2020. Failure to mature. Patient somewhat disappointed because of his lengthy stay in the hospital. Discussed at length with him and his friend at the bedside. He does understand. But feels frustrated. 11/05/2021: Oral intake variable. Has been feeling depressed. Consult psychiatry. Hemoglobin 6.4. Unit of blood ordered. Likely hemolysis. No evidence of GI bleed. 11/06/2021: Not much of an appetite. tunneled femoral cath placement placement today. Plan for dialysis today and tomorrow. Seen by Dr. Pelaez from surgery to rule out a GI bleed. Hemoglobin dropped again. Another unit of blood ordered. 11/07/2021: No fever. Decreased oral intake. Hemodialysis today. Will change Marinol to Megace. Has some swelling of the left knee. We will get ultrasound to rule out any significant hematoma. November 08: Patient spiked a fever of 102.9 last night. Patient does feel low. Decreased appetite. Discussed with ID. Dr. Stokes from or to to reevaluate left knee for drainage. Could be the source of fever November 09: Left knee swelling was drained by orthopedic PA yesterday. Formal load pending. Cloudy and bloody. This morning case was discussed with Dr. Laws from hematology. Computed tomography scan abdomen pelvis is ordered. Complex masslike area anterior thigh and the left possible hematoma. An additional complex lesion noted in the region of the right iliac musculature. Relevant atrophic changes. This was later discussed with Dr. Laws. Could be from platelet dysfunction. IV octreotide was ordered. Left leg MRI showing a 12 cm x 3 cm. This was discussed with Dr. Stokes from orthopedics. Also discussed with Dr. Christy from vascular. [place] to be hematoma. Patient also done for I&D of his left knee by Dr. Stokes this afternoon Spoke to Dr. Stokes in the evening: -Infected fluid was taken out of the left knee. -Large hematoma removed from the left thigh and from the left hip. Several areas of oozing. Discussed . Patient is already on IV octreotide. Cultures have been sent off. November 10: Hemoglobin dropped again today. 1 unit of blood ordered. Patient is rather scared and tearful. Discussed. Reassured. Sandostatin drip. Hemovac in place. 4 left knee and left hip. November 11: Hemoglobin today 6.6. Unit of blood ordered. Remains on Sandostatin drip. Hemovac in place. Discussed with nephrology, hematology, surgery. Clinically does not appear to be septic. Continue current treatment plan. Discussed with patient. WBC scan done yesterday unremarkable. Active Medications Acetaminophen (Acetaminophen Tab 325 Mg Tab) 650 mg PO Q4HR PRN PRN Reason: Fever Last Admin: 11/11/21 10:25 Dose: 650 mg Acetaminophen/Codeine Phosphate (Acetaminophen-Codeine 300-30mg Tab) 1 each PO Q6HR PRN PRN Reason: Pain Last Admin: 11/10/21 21:50 Dose: 1 each Darbepoetin Luis E (Darbepoetin Luis E 100mcg/0.5ml Syringe) 100 mcg SQ Q7D [facility] Last Admin: 11/10/21 10:27 Dose: 100 mcg Nafcillin Sodium 2 gm/ (Dextrose/Water) 100 mls @ 100 mls/hr IVPB Q4H [facility]; Protocol Last Admin: 11/11/21 09:52 Dose: 100 mls/hr Lactated Ringer's (Lactated Ringers) 1,000 mls @ 20 mls/hr IV .Q24H [facility] Last Admin: 11/11/21 07:35 Dose: Not Given Lorazepam (Lorazepam 0.5 Mg Tab) 0.5 mg PO Q6HR PRN PRN Reason: Anxiety Last Admin: 11/10/21 21:50 Dose: 0.5 mg Metoprolol Tartrate (Metoprolol Tartrate 25 Mg Tab) 25 mg PO BID [facility] Last Admin: 11/11/21 12:56 Dose: 25 mg Morphine Sulfate (Morphine Sulfate 2 Mg/Ml Syringe) 2 mg IVP Q4HR PRN PRN Reason: Pain/Discomfort Last Admin: 11/11/21 13:46 Dose: 2 mg Multivitamins (Multivitamins, Thera 1 Each Tab) 1 each PO DAILY [facility] Last Admin: 11/11/21 12:56 Dose: 1 each Naloxone HCl (Naloxone 0.4 Mg/Ml 1 Ml Vial) 0.2 mg IV Q2M PRN PRN Reason: Opioid Reversal Sevelamer Carbonate (Sevelamer 800 Mg Tab) 1,600 mg PO TID-W/MEALS [facility] Last Admin: 11/11/21 12:56 Dose: 1,600 mg Thiamine HCl (Thiamine 100 Mg Tab) 100 mg PO BID-W/MEALS [facility] Last Admin: 11/11/21 12:56 Dose: 100 mg Torsemide (Torsemide 20 Mg Tab) 80 mg PO DAILY [facility] Last Admin: 11/11/21 12:56 Dose: 80 mg Zolpidem Tartrate (Zolpidem 5 Mg Tab) 5 mg PO HS [facility] Last Admin: 11/10/21 21:50 Dose: 5 mg Past medical history to include: End-stage kidney disease on hemodialysis, anemia of CK D, minimal bone disease Social history: Lives with his mother. Smokes about 5 bowls of marijuana daily. No alcohol or cigarette smoking. Family history: Diabetes, COPD, A. fib, CHF Physical examination: VITAL SIGNS: 98.6, 102, 18, 167 x 91, 95% room air GENERAL: Laying in bed, awake EYES: Pupils equal. Conjunctiva normal. HEENT: External appearance of nose and ears normal, oral cavity grossly normal. NECK: JVD not raised; masses not palpable. HEART: First and second heart sounds are normal; no edema. LUNGS: Respiratory rate normal; clear to auscultation. ABDOMEN: Soft, nontender, liver spleen not palpable, no masses palpable. PSYCH: AO 3, mood and affect, anxious MUSCULOSKELETAL:No Clubbing/cyanosis;muscles-grossly intact. Hemovac left knee/left hip. Dressing in place. Tenderness in the left thigh. INVESTIGATIONS, reviewed in the clinical context: November 11: WBC 14.9 hemoglobin 6.6 platelets 692 potassium 6.1 creatinine 9.2 November 10: WBC 14.8 hemoglobin 6.4 platelets 807 Lower extremity MRI [November 09]: Suspicious for hematoma Abdomen pelvis CT: [November 09]: Suspicious for right iliac hematoma November 07: WBC 11.9 hemoglobin 6.9 platelets 846 Dialysis Catheter tip culture: Negative Ultrasound left knee: Edema of the left knee. November 06: WBC 15.9 hemoglobin 6.7 platelets 733 potassium 4.9 creatinine 10.49. Haptoglobin 259 November 05: WBC 17.4 hemoglobin 6.4 potassium 4.7 creatinine 9.05 November 03: WBC 18.7, hemoglobin 7.1 platelets and 5 to potassium 4.2 creatinine 7.73 DEVEN [November 03]: 1 cm x 0.5 cm vegetation on catheter tip November 02: White count 8.2 hemoglobin 6.7 platelets 757 October 31: WBC 19 hemoglobin 6.9 potassium 4.5 creatinine 8.15 October 30: White count 19.8 hemoglobin 7.1 platelet 774 sodium 126 potassium 5.4 creatinine 9.96 October 21: Sodium 127 potassium 5.4 twice a day 2 creatinine 9.1 Urine drug screen: Positive for opiates, benzodiazepine, marijuana White count 12.4 hemoglobin 9 platelets 170 sodium 126 potassium 5.3 rate 80 creatinine 10.9 phosphorus 5.6 and magnesium 2.8 bilirubin 1.8 EKG tracing personally reviewed by me-sinus tachycardia rate of 1:30. Right bundle branch block pattern. Nonspecific ST segment changes. Assessment and plan: -Sepsis with blood cultures positive for MSSA. done at the dialysis center and from October 19.: Slow to respond IV nafcillin Dialysis catheter removed October 20. Blood culture negative on October 27. DEVEN on November 03 showing vegetation on catheter. Right internal jugular Dialysis catheter removed November 03. Tunneled Right femoral dialysis catheter placed on November 06. Dialysis catheter tip culture negative. November 09 repeat I&D of the left knee joint for infected fluid. -Hematoma different sites including left thigh, left knee, right iliac muscle. [place] to be from platelet dysfunction given hemodialysis. Large hematoma removed from left hip, left thigh. Hemovac in place. -Polyarticular septic arthritis including the left hip, left knee, left ankle with I&D of all the joints. Recurrent infection of left knee joint. IV nafcillin. Left knee I&D carried out again on November [address] Stokes. -Acute delirium from sepsis: Improved Treat underlying infection -End-stage kidney disease on hemodialysis Sunday and Sunday On dialysis schedule -Anemia of chronic kidney disease, dropped hemoglobin to 6.7. Follow H&H. -Acute recurrent Anemia due to recurrent bleeding from underlying platelet dysfunction, leading to hematoma multiple places. Received 7 unit of blood -mineral bone disease/CK D Supplements -Hyperphosphatemia secondary to CK D Renvela -Hypervolemic hyponatremia: Slow to respond Encourage oral intake. Fluid to be taken off at dialysis. -Anorexia multifactorial Megace 5 mg twice a day -Sinus tachycardia likely combination of deconditioning and infection Under unit of blood ordered today. Discussed with patient. Also discussed with Dr. Neves, [place] from hematology. Hemodialysis today. He received octreotide. Also received DDAVP yesterday. We'll give a dose of 22 g today.
[2021-11-11] MEDS ORDERED: DESMOPRESSIN ACETATE 22 MCG in SODIUM CHLORIDE 0.9% 50 ML IVPB ONE (15:15)
--- NOTE | 2021-11-11 16:07 | P.PN ---
Subjective Progress Note Date: 11/11/21 This patient is a 26- year old male who is status-post I&D left hip, left knee, left ankle for presumed septic arthritis, and irrigation and debridement left calf for hematoma versus abscess on 10/25/21. He is more recently status-post left hip irrigation and debridement, left knee irrigation and debridement, left calf irrigation and debridement on 11/09/21. Today is post-operative day #2. Patient is examined bedside this morning. He continues to complain of pain in the left knee and hip. Hemovac drains are removed bedside today. He otherwise has no complaints at this time. He denies chest pain, shortness of breath, nausea, vomiting, fevers, chills. Objective - Vital Signs Vital signs: Vital Signs Temp 98.6 F 11/11/21 13:00 Pulse 102 H 11/11/21 13:00 Resp 18 11/11/21 13:00 BP 178/89 11/11/21 13:03 Pulse Ox 94 L 11/11/21 13:00 FiO2 Intake & Output 11/10/21 11/11/21 11/11/21 18:59 06:59 18:59 Intake Total 7581 889 3063 Output Total 2 2009 Balance 1020 238 -970 Weight 72.5 kg Intake: IV 380 340 Desmopressin Acetate 20 50 mcg In Sodium Chloride 0. 9% 50 ml @ 200 mls/hr IVPB ONCE ONE Rx#: [id number] Invasive Line 7 10 20 Invasive Line 9 20 20 Nafcillin 2 gm In 300 300 Dextrose 5% in Water 100 ml @ 100 mls/hr IVPB Q4H [facility] Rx#:[id number] Intake, IV Titration 250 Amount Octreotide 500 mcg In 250 Sodium Chloride 0.9% 250 ml @ 25 MCG/HR 12.5 mls/ hr IV .Q20H [facility] Rx#: [id number] Oral 330 240 450 Blood Product 310 Rc As-1 Unit 310 [id number] Output: Drainage 10 Left Hip 5 Left Knee 5 Stool 2 Hemodialysis 1999 Other: Voiding Method Urinal # Voids 1 1 - Exam On examination, patient is sitting up in bed in no apparent distress. He is alert and oriented 3. On inspection of the left lower extremity, dressings in place over the left hip, left knee, left calf. Healing incision at the medial ankle. Hemovac drains in place at the left hip and left knee, they are removed bedside today. Moderate pain with palpation of the hip, thigh, knee. The left ankle is non-tender. The left calf is soft and non-tender to palpation. Motor and sensory function is intact of the LLE. Patient is able to wiggle toes appropriately. Foot is warm and well perfused. - Labs CBC & Chem 7: 11/11/21 07:13 11/11/21 07:25 Labs: Abnormal Lab Results - Last 24 Hours (Table) 11/09/21 11/11/21 11/11/21 Range/Units 09:43 07:13 07:25 WBC 14.9 H (3.8-10.6) k/uL RBC 2.42 L (4.30-5.90) m/uL Hgb 6.6 L* (13.0-17.5) gm/dL Hct 21.4 L (39.0-53.0) % MCHC 30.6 L (31.0-37.0) g/dL RDW 16.6 H (11.5-15.5) % Plt Count 692 H (150-450) k/uL Neutrophils # 12.2 H (1.3-7.7) k/uL Sodium 130 L (137-145) mmol/L Potassium 6.1 H* (3.5-5.1) mmol/L Chloride 93 L (98-107) mmol/L BUN 63 H (9-20) mg/dL Creatinine 9.20 H* (0.66-1.25) mg/dL Calcium 8.3 L (8.4-10.2) mg/dL Magnesium 2.4 H (1.6-2.3) mg/dL Total Bilirubin 2.8 H (0.2-1.3) mg/dL Alkaline Phosphatase 182 H (38-126) U/L Albumin 2.5 L (3.5-5.0) g/dL Crossmatch See Detail Microbiology - Last 24 Hours (Table) 11/09/21 17:26 Gram Stain - Preliminary Knee - Left Tissue Culture - Preliminary 11/09/21 17:24 Gram Stain - Preliminary Knee - Left Wound Culture - Preliminary 11/09/21 17:23 Gram Stain - Preliminary Thigh - Left Tissue Culture - Preliminary 11/09/21 17:27 Gram Stain - Preliminary Leg - Left Wound Culture - Preliminary 11/09/21 17:25 Gram Stain - Preliminary Knee - Left Tissue Culture - Preliminary 11/08/21 Unknown Gram Stain - Preliminary Knee - Left Body Fluid Culture - Preliminary Assessment and Plan Assessment: Status-post I&D left hip, left knee, left ankle for presumed septic arthritis, and irrigation and debridement left calf for hematoma versus abscess on 10/25/21. Status-post left hip irrigation and debridement, left knee irrigation and debridement, left calf irrigation and debridement on 11/09/21. Plan: - No further plans for surgical intervention at this time. - Keep operative dressings intact. Hemovac drains removed bedside today. - Patient may weight bear as tolerated on the left lower extremity. - Intra-op cultures pending. IV antibiotics per infectious disease. - Medical management per multiple medical specialities following. - We will follow patient as he remains inpatient.
[2021-11-11] MEDS: ZOLPIDEM 5 MG TAB PO SCH (20:58)
--- NOTE | 2021-11-11 23:34 | P.PN ---
Subjective Progress Note Date: 11/10/21 Principal diagnosis: Bacteremia Patient is a 26 year old male with a past medical history significant for end-stage renal disease on hemodialysis presented to hospital with sepsis and bacteremia secondary to dialysis catheter infection which was removed the evening of 10/20/2021. Patient is status post I and D of the left knee and hip and ankle area completed 10/25/2021, patient is status post new permacatheter placement on 10/29/2021 as a blood culture from 10/26/2021 were negative, the patient is status post DEVEN completed with no evidence of endocarditis however did show mobile mass attached to the dialysis catheter which has been removed 11/03/2021, the patient did have a dialysis cath placement in the right groin as of 11/06/2021, patient is status post left hip, left knee as well as left left calf I&D by orthopedics on 11/09/2021 On today's evaluation that is 11/10/2021, the patient is afebrile today , the patient is breathing comfortably on room air , The patient denies chest pain shortness of breath or cough , the patient denies nausea no vomiting no abdominal , the patient pain to the left knee and ankle area is currently controlled Objective - Vital Signs Vital signs: Vital Signs Temp 100.5 F H 11/10/21 08:46 Pulse 134 H 11/10/21 08:46 Resp 16 11/10/21 08:46 BP 134/72 11/10/21 08:46 Pulse Ox 98 11/10/21 08:46 FiO2 Intake & Output 11/09/21 11/10/21 11/10/21 18:59 06:59 18:59 Intake Total 1320 20 90 Output Total 1201 251 Balance 119 -231 90 Intake: IV 700 20 Oral 90 Blood Product 620 Rc As-1 Unit 310 [id number] Output: Urine 250 Stool 1 1 Hemodialysis 1000 Estimated Blood Loss 200 Other: Voiding Method Urinal Urinal # Voids 0 # Bowel Movements 0 - Exam GENERAL DESCRIPTION: Young male lying in bed in no distress RESPIRATORY SYSTEM: Unlabored breathing , decreased breath sounds at bases HEART: S1 S2 regular rate and rhythm , ABDOMEN: Soft , no tenderness EXTREMITIES: No edema feet - Labs CBC & Chem 7: 11/11/21 07:13 11/11/21 07:25 Labs: Abnormal Lab Results - Last 24 Hours (Table) 11/09/21 11/09/21 11/10/21 Range/Units 09:43 20:43 08:23 Sodium 132 L (137-145) mmol/L Chloride 96 L (98-107) mmol/L BUN 46 H (9-20) mg/dL Creatinine 6.53 H (0.66-1.25) mg/dL Glucose 100 H (74-99) mg/dL Total Bilirubin 1.6 H (0.2-1.3) mg/dL Alkaline Phosphatase 161 H (38-126) U/L C-Reactive Protein 8.8 H (<1.0) mg/dL Albumin 2.7 L (3.5-5.0) g/dL Crossmatch See Detail Microbiology - Last 24 Hours (Table) 11/09/21 17:26 Acid Fast Bacilli Culture - Preliminary Knee - Left 11/09/21 17:23 Acid Fast Bacilli Culture - Preliminary Thigh - Left 11/09/21 17:26 Anaerobic Culture - Preliminary Knee - Left 11/09/21 17:23 Anaerobic Culture - Preliminary Thigh - Left 11/09/21 17:26 Tissue Culture - Preliminary Knee - Left 11/09/21 17:23 Tissue Culture - Preliminary Thigh - Left 11/09/21 17:24 Anaerobic Culture - Preliminary Knee - Left 11/09/21 17:24 Wound Culture - Preliminary Knee - Left 11/08/21 Unknown Gram Stain - Preliminary Knee - Left Body Fluid Culture - Preliminary 11/04/21 08:09 Blood Culture - Preliminary Blood No Growth after 120 hours 11/03/21 08:27 Blood Culture - Final Blood No Growth after 144 hours Assessment and Plan (1) Positive blood culture Current Visit: No Status: Acute Code(s): R78.81 - BACTEREMIA SNOMED Code(s): 934340311 Plan: 1patient presented to hospital with sepsis source is likely dialysis catheter infection in this patient who did have a staphylococcal bacteremia which has been finalized as MSSA 2the patient dialysis catheter has been removed and tip has been sent for the culture which came back positive with MSSA. 3patient is status post I&D of the left hip and ankle in the area, cultures from the knee and ankle positive for MSSA 4patient did have persistent bacteremia echocardiogram did not show any vegetation 5patient blood culture 10/26/21 and 10/27/2021 were negative and patient was cleared to get his dialysis catheter which was placed on 10/29/2021, patient subsequently did have a new fever which is slightly concerning also have a drop in hemoglobin with a question of possible hematoma, patient did undergo DEVEN with mobile vegetation attached to the dialysis catheter which was just placed 5 days ago and the patient was not bacteremic for more than 72 hour before the catheter was placed, dialysis catheter was discontinued on 11/03/2021, patient did have blood culture repeated on 11/02/2021, 11/03/2021, 11/04/2021 and has been negative , catheter tip culture negative as well, patient did got the groin dialysis catheter as of 11/06/2021- 6-patient did have a left lower extremity Doppler suggestive of a complex nonvascular collection possible hematoma could be responsible for his recurrent fever , orthopedic has been reconsulted, MRI has been repeated as well as CT of abdominal pelvis, with evidence of multiple fluid collection and concerning for hematoma patient is status post I&D and cultures of the left hip knee and the left calf completed on 11/09/2021 with a repeat cultures currently pending, we are still waiting for the WBC scan to be finalize 7patient currently being treated with Naficillin , and will monitor repeat cultures closely Time with Patient: Less than 30
--- NOTE | 2021-11-11 23:37 | P.PN ---
Subjective Progress Note Date: 11/11/21 Principal diagnosis: Bacteremia Patient is a 26 year old male with a past medical history significant for end-stage renal disease on hemodialysis presented to hospital with sepsis and bacteremia secondary to dialysis catheter infection which was removed the evening of 10/20/2021. Patient is status post I and D of the left knee and hip and ankle area completed 10/25/2021, patient is status post new permacatheter placement on 10/29/2021 as a blood culture from 10/26/2021 were negative, the patient is status post DEVEN completed with no evidence of endocarditis however did show mobile mass attached to the dialysis catheter which has been removed 11/03/2021, the patient did have a dialysis cath placement in the right groin as of 11/06/2021, patient is status post left hip, left knee as well as left left calf I&D by orthopedics on 11/09/2021 On today's evaluation that is 11/11/2021, the patient remains to be afebrile, the patient is breathing comfortably on room air, The patient denies chest pain shortness of breath or cough , the patient denies nausea no vomiting and no abdominal pain, the patient denies any worsening pain to the left knee and ankle area, no new symptoms Objective - Vital Signs Vital signs: Vital Signs Temp 98.7 F 11/11/21 09:39 Pulse 101 H 11/11/21 09:39 Resp 18 11/11/21 09:39 BP 167/91 11/11/21 09:39 Pulse Ox 95 11/11/21 09:39 FiO2 Intake & Output 11/10/21 11/11/21 11/11/21 18:59 06:59 18:59 Intake Total 1020 240 450 Output Total 2 10 Balance 1020 238 440 Weight 72.5 kg Intake: IV 380 20 Desmopressin Acetate 20 50 mcg In Sodium Chloride 0. 9% 50 ml @ 200 mls/hr IVPB ONCE ONE Rx#: [id number] Invasive Line 7 10 10 Invasive Line 9 20 10 Nafcillin 2 gm In 300 Dextrose 5% in Water 100 ml @ 100 mls/hr IVPB Q4H [facility] Rx#:[id number] Intake, IV Titration 250 Amount Octreotide 500 mcg In 250 Sodium Chloride 0.9% 250 ml @ 25 MCG/HR 12.5 mls/ hr IV .Q20H [facility] Rx#: [id number] Oral 330 240 180 Blood Product 310 Rc As-1 Unit 310 [id number] Output: Drainage 10 Left Hip 5 Left Knee 5 Stool 2 Other: Voiding Method Urinal # Voids 1 1 - Exam GENERAL DESCRIPTION: Young male lying in bed in no distress RESPIRATORY SYSTEM: Unlabored breathing , decreased breath sounds at bases HEART: S1 S2 regular rate and rhythm , ABDOMEN: Soft , no tenderness EXTREMITIES: No edema feet - Labs CBC & Chem 7: 11/11/21 07:13 11/11/21 07:25 Labs: Abnormal Lab Results - Last 24 Hours (Table) 11/09/21 11/11/21 11/11/21 Range/Units 09:43 07:13 07:25 WBC 14.9 H (3.8-10.6) k/uL RBC 2.42 L (4.30-5.90) m/uL Hgb 6.6 L* (13.0-17.5) gm/dL Hct 21.4 L (39.0-53.0) % MCHC 30.6 L (31.0-37.0) g/dL RDW 16.6 H (11.5-15.5) % Sodium 130 L (137-145) mmol/L Potassium 6.1 H* (3.5-5.1) mmol/L Chloride 93 L (98-107) mmol/L BUN 63 H (9-20) mg/dL Creatinine 9.20 H* (0.66-1.25) mg/dL Calcium 8.3 L (8.4-10.2) mg/dL Magnesium 2.4 H (1.6-2.3) mg/dL Total Bilirubin 2.8 H (0.2-1.3) mg/dL Alkaline Phosphatase 182 H (38-126) U/L Albumin 2.5 L (3.5-5.0) g/dL Crossmatch See Detail Microbiology - Last 24 Hours (Table) 11/08/21 Unknown Gram Stain - Preliminary Knee - Left Body Fluid Culture - Preliminary 11/09/21 17:25 Gram Stain - Preliminary Knee - Left Tissue Culture - Preliminary 11/09/21 17:27 Gram Stain - Preliminary Leg - Left Wound Culture - Preliminary 11/09/21 17:24 Gram Stain - Preliminary Knee - Left Wound Culture - Preliminary 11/09/21 17:23 Gram Stain - Preliminary Thigh - Left Tissue Culture - Preliminary 11/09/21 17:26 Gram Stain - Preliminary Knee - Left Tissue Culture - Preliminary 11/04/21 08:09 Blood Culture - Final Blood No Growth after 144 hours 11/09/21 17:25 Acid Fast Bacilli Culture - Preliminary Knee - Left 11/09/21 17:25 Anaerobic Culture - Preliminary Knee - Left 11/09/21 17:27 Anaerobic Culture - Preliminary Leg - Left 11/09/21 17:26 Acid Fast Bacilli Culture - Preliminary Knee - Left 11/09/21 17:23 Acid Fast Bacilli Culture - Preliminary Thigh - Left 11/09/21 17:26 Anaerobic Culture - Preliminary Knee - Left 11/09/21 17:23 Anaerobic Culture - Preliminary Thigh - Left 11/09/21 17:24 Anaerobic Culture - Preliminary Knee - Left Assessment and Plan (1) Positive blood culture Current Visit: No Status: Acute Code(s): R78.81 - BACTEREMIA SNOMED Code(s): 298171231 Plan: 1patient presented to hospital with sepsis source is likely dialysis catheter infection in this patient who did have a staphylococcal bacteremia which has been finalized as MSSA 2the patient dialysis catheter has been removed and tip has been sent for the culture which came back positive with MSSA. 3patient is status post I&D of the left hip and ankle in the area, cultures from the knee and ankle positive for MSSA 4patient did have persistent bacteremia echocardiogram did not show any vegetation 5patient blood culture 10/26/21 and 10/27/2021 were negative and patient was cleared to get his dialysis catheter which was placed on 10/29/2021, patient subsequently did have a new fever which is slightly concerning also have a drop in hemoglobin with a question of possible hematoma, patient did undergo DEVEN with mobile vegetation attached to the dialysis catheter which was just placed 5 days ago and the patient was not bacteremic for more than 72 hour before the catheter was placed, dialysis catheter was discontinued on 11/03/2021, patient did have blood culture repeated on 11/02/2021, 11/03/2021, 11/04/2021 and has been negative , catheter tip culture negative as well, patient did got the groin dialysis catheter as of 11/06/2021- 6-patient did have a left lower extremity Doppler suggestive of a complex nonvascular collection possible hematoma could be responsible for his recurrent fever , orthopedic has been reconsulted, MRI has been repeated as well as CT of abdominal pelvis, with evidence of multiple fluid collection and concerning for hematoma patient is status post I&D and cultures of the left hip knee and the left calf completed on 11/09/2021 with a repeat cultures currently pending, WBC scan did show some increased uptake in the left leg but no other concerning for infection or increased uptake 7patient currently being treated with Naficillin , with a plan to finish therap y with cefazolin postdialysis Time with Patient: Less than 30
[2021-11-12] MEDS: NAFCILLIN 2 GM in DEXTROSE 5% IN WATER 100 ML IVPB SCH ×12 (02:00→20:43)
[2021-11-12] MEDS: ACETAMINOPHEN TAB 325 MG TAB PO PRN ×2 (04:44→14:38)
[2021-11-12] MEDS: THIAMINE 100 MG TAB PO SCH ×2 (06:47→12:32)
[2021-11-12] MEDS: SEVELAMER 800 MG TAB PO SCH ×3 (06:47→17:06)
--- NOTE | 2021-11-12 09:37 | P.PN ---
Subjective Progress Note Date: 11/12/21 This patient is a 26- year old male who is status-post I&D left hip, left knee, left ankle for presumed septic arthritis, and irrigation and debridement left calf for hematoma versus abscess on 10/25/21. He is more recently status-post left hip irrigation and debridement, left knee irrigation and debridement, left calf irrigation and debridement on 11/09/21. Today is post-operative day #3. Patient is examined bedside this morning. He continues to complain of pain in the left knee and hip. He otherwise has no complaints at this time. He denies chest pain, shortness of breath, nausea, vomiting, fevers, chills. Objective - Vital Signs Vital signs: Vital Signs Temp 98.3 F 11/12/21 04:06 Pulse 114 H 11/12/21 04:06 Resp 18 11/12/21 04:06 BP 144/83 11/12/21 04:06 Pulse Ox 98 11/12/21 04:06 FiO2 Intake & Output 11/11/21 11/12/21 11/12/21 18:59 06:59 18:59 Intake Total 1220 310 247 Output Total 2009 Balance -790 310 247 Intake: IV 340 10 10 Invasive Line 7 20 Invasive Line 9 20 10 10 Nafcillin 2 gm In 300 Dextrose 5% in Water 100 ml @ 100 mls/hr IVPB Q4H [facility] Rx#:[id number] Intake, IV Titration 250 300 Amount Nafcillin 2 gm In 300 Dextrose 5% in Water 100 ml @ 100 mls/hr IVPB Q4H [facility] Rx#:[id number] Octreotide 500 mcg In 250 Sodium Chloride 0.9% 250 ml @ 25 MCG/HR 12.5 mls/ hr IV .Q20H [facility] Rx#: [id number] Oral 630 237 Output: Drainage 10 Left Hip 5 Left Knee 5 Hemodialysis 1999 Other: # Voids 1 - Exam On examination, patient is sitting up in bed in no apparent distress. He is alert and oriented 3. On inspection of the left lower extremity, dressings in place over the left hip, left knee, left calf. Healing incision at the medial ankle. Hemovac drain site to the left knee has moderate drainage on the dressing. Moderate pain with palpation of the hip, thigh, knee. The left ankle is non-tender. The left calf is soft and non-tender to palpation. Motor and sensory function is intact of the LLE. Patient is able to wiggle toes appropriately. Foot is warm and well perfused. - Labs CBC & Chem 7: 11/12/21 10:48 11/12/21 10:48 Labs: Abnormal Lab Results - Last 24 Hours (Table) 11/09/21 11/11/21 Range/Units 09:43 07:13 Plt Count 692 H (150-450) k/uL Neutrophils # 12.2 H (1.3-7.7) k/uL Crossmatch See Detail Microbiology - Last 24 Hours (Table) 11/09/21 17:26 Acid Fast Bacilli Smear - Final Knee - Left Acid Fast Bacilli Culture - Preliminary 11/09/21 17:25 Acid Fast Bacilli Smear - Final Knee - Left Acid Fast Bacilli Culture - Preliminary 11/09/21 17:23 Acid Fast Bacilli Smear - Final Thigh - Left Acid Fast Bacilli Culture - Preliminary 11/08/21 Unknown Gram Stain - Preliminary Knee - Left Body Fluid Culture - Preliminary 11/09/21 17:26 Gram Stain - Preliminary Knee - Left Tissue Culture - Preliminary 11/09/21 17:24 Gram Stain - Preliminary Knee - Left Wound Culture - Preliminary 11/09/21 17:23 Gram Stain - Preliminary Thigh - Left Tissue Culture - Preliminary 11/09/21 17:27 Gram Stain - Preliminary Leg - Left Wound Culture - Preliminary 11/09/21 17:25 Gram Stain - Preliminary Knee - Left Tissue Culture - Preliminary Assessment and Plan Plan: Status-post I&D left hip, left knee, left ankle for presumed septic arthritis, and irrigation and debridement left calf for hematoma versus abscess on 10/25/21. Status-post left hip irrigation and debridement, left knee irrigation and debridement, left calf irrigation and debridement on 11/09/21. - No further plans for surgical intervention at this time. - Keep operative dressings intact. - Patient may weight bear as tolerated on the left lower extremity. - Intra-op cultures pending. IV antibiotics per infectious disease. - Medical management per multiple medical specialities following. - We will follow patient as he remains inpatient.
[2021-11-12 10:09] LABS: T4/T8 Ratio (CD4:CD8) 1.4 (1.0-3.7)
[2021-11-12] MEDS: LACTATED RINGERS 1,000 ML IV SCH (10:40)
--- NOTE | 2021-11-12 10:48 | P.PN ---
Subjective Principal diagnosis: This is a 26-year-old male with end-stage renal failure on dialysis for the last 2 years, presented to hospital with sepsis and bacteremia secondary to dialysis catheter infection which was removed the evening of 10/20/2021. Patient is status post I and D of the left knee and hip and ankle area completed 10/25/2021, patient is status post new permacatheter placement on 10/29/2021 as a blood culture from 10/26/2021 were negative, the patient is status post DEVEN completed with no evidence of endocarditis however did show mobile mass attached to the dialysis catheter which has been removed 11/03/2021, the patient did have a dialysis cath placement in the right groin as of 11/06/2021, patient is status post left hip, left knee as well as left left calf I&D by orthopedics on 11/09/2021 Currently he is afebrile no nausea vomiting good appetite no diarrhea. Has pain in his left leg where he has had I and D. Currently on antibiotics. He was seen on dialysis this morning dialysis was just started. Objective - Vital Signs Vital signs: Vital Signs Temp 98.3 F 11/12/21 04:06 Pulse 114 H 11/12/21 04:06 Resp 18 11/12/21 04:06 BP 144/83 11/12/21 04:06 Pulse Ox 98 11/12/21 04:06 FiO2 Intake & Output 11/11/21 11/12/21 11/12/21 18:59 06:59 18:59 Intake Total 1220 310 247 Output Total 2009 Balance -790 310 247 Intake: IV 340 10 10 Invasive Line 7 20 Invasive Line 9 20 10 10 Nafcillin 2 gm In 300 Dextrose 5% in Water 100 ml @ 100 mls/hr IVPB Q4H [facility] Rx#:[id number] Intake, IV Titration 250 300 Amount Nafcillin 2 gm In 300 Dextrose 5% in Water 100 ml @ 100 mls/hr IVPB Q4H [facility] Rx#:[id number] Octreotide 500 mcg In 250 Sodium Chloride 0.9% 250 ml @ 25 MCG/HR 12.5 mls/ hr IV .Q20H [facility] Rx#: [id number] Oral 630 237 Output: Drainage 10 Left Hip 5 Left Knee 5 Hemodialysis 1999 Other: # Voids 1 On examination is awake alert oriented comfortable HEENT exam no JVP neck is supple no facial asymmetry Lungs clear to auscultation good air entry bilaterally Heart sounds unremarkable no murmur rub gallop Abdomen soft nontender Extremity exam was no edema in the right left has minimal edema and he has had IND on his left leg in multiple places Neurologically awake alert oriented - Labs CBC & Chem 7: 11/11/21 07:13 11/11/21 07:25 Labs: Abnormal Lab Results - Last 24 Hours (Table) 11/09/21 11/11/21 11/11/21 Range/Units 09:43 07:13 07:13 Plt Count 692 H (150-450) k/uL Neutrophils # 12.2 H (1.3-7.7) k/uL Total CD19+ B Cells 67 L (100-524) cell/ul Crossmatch See Detail Microbiology - Last 24 Hours (Table) 11/09/21 17:26 Acid Fast Bacilli Smear - Final Knee - Left Acid Fast Bacilli Culture - Preliminary 11/09/21 17:25 Acid Fast Bacilli Smear - Final Knee - Left Acid Fast Bacilli Culture - Preliminary 11/09/21 17:23 Acid Fast Bacilli Smear - Final Thigh - Left Acid Fast Bacilli Culture - Preliminary 11/08/21 Unknown Gram Stain - Preliminary Knee - Left Body Fluid Culture - Preliminary 11/09/21 17:26 Gram Stain - Preliminary Knee - Left Tissue Culture - Preliminary 11/09/21 17:24 Gram Stain - Preliminary Knee - Left Wound Culture - Preliminary 11/09/21 17:23 Gram Stain - Preliminary Thigh - Left Tissue Culture - Preliminary 11/09/21 17:27 Gram Stain - Preliminary Leg - Left Wound Culture - Preliminary 11/09/21 17:25 Gram Stain - Preliminary Knee - Left Tissue Culture - Preliminary Assessment and Plan Assessment: 1. ESRD on dialysis usually Sunday, additionally on dialysis today Sunday 2. Staph bacteremia permacath has been removed. Bacteremia resolved, last blood culture positive was 10/25/2021, subsequently multiple blood cultures are negative Permacath in the right thigh 3. Anemia of ESRD hemoglobin 6.6 as of yesterday. No recent iron saturation last one was 24% on 10/19/2021 4. Mild hyperkalemia, potassium 6.1 as of yesterday, specimen was predialysis 5. Mild hyponatremia secondary to excessive free water intake patient with ESRD Recommendation 1. Check iron saturation. 2. We will reduce the dialysis to 2 hours today
[2021-11-12] MEDS: Acetaminophen-Codeine 300-30mg TAB PO PRN (10:49)
[2021-11-12 10:54] LABS: Anisocytosis Slight; Basophils # (A) 0.1 k/uL (0-0.2); Basophils % (A) 0 %; Eosinophils # (A) 0.3 k/uL (0-0.7); Eosinophils % (A) 2 %; HCT 20.4 % (39.0-53.0); Hypochromasia Moderate; Lymphocytes # (A) 1.6 k/uL (1.0-4.8); Lymphocytes % (A) 10 %; MCH 26.8 pg (25.0-35.0); MCHC 29.9 g/dL (31.0-37.0); MCV 89.8 fL (80.0-100.0); Monocytes # (A) 0.7 k/uL (0-1.0); Monocytes % (A) 4 %; Neutrophils # (A) 13.4 k/uL (1.3-7.7); Neutrophils % (A) 83 %; Platelet Count 724 k/uL (150-450); RBC 2.27 m/uL (4.30-5.90); RDW 16.7 % (11.5-15.5); WBC 16.1 k/uL (3.8-10.6)
[2021-11-12 11:05] LABS: Albumin 2.5 g/dL (3.5-5.0); Calcium 8.2 mg/dL (8.4-10.2); Magnesium 2.2 mg/dL (1.6-2.3); Potassium 4.3 mmol/L (3.5-5.1); Total Bilirubin 1.6 mg/dL (0.2-1.3); Total Protein 6.7 g/dL (6.3-8.2)
[2021-11-12 11:08] LABS: HGB 6.1 gm/dL (13.0-17.5)
[2021-11-12] MEDS: METOPROLOL TARTRATE 25 MG TAB PO SCH ×2 (12:32→20:44)
[2021-11-12] MEDS: TORSEMIDE 20 MG TAB PO SCH (12:32)
[2021-11-12] MEDS: MULTIVITAMINS, THERA 1 EACH TAB PO SCH (12:32)
[2021-11-12] MEDS: MORPHINE SULFATE 2 MG/ML SYRINGE IVP PRN (12:34)
[2021-11-12] MEDS ORDERED: OCTREOTIDE 500 MCG in SODIUM CHLORIDE 0.9% 250 ML IV SCH (18:00)
[2021-11-12 20:19] VITALS: BP 140/77; PULSE 110; RESP 20; TEMP 98.9
[2021-11-12] MEDS: ZOLPIDEM 5 MG TAB PO SCH (20:44)
--- NOTE | 2021-11-13 01:20 | P.PN ---
Subjective Progress Note Date: 11/12/21 Principal diagnosis: Bacteremia Patient is a 26 year old male with a past medical history significant for end-stage renal disease on hemodialysis presented to hospital with sepsis and bacteremia secondary to dialysis catheter infection which was removed the evening of 10/20/2021. Patient is status post I and D of the left knee and hip and ankle area completed 10/25/2021, patient is status post new permacatheter placement on 10/29/2021 as a blood culture from 10/26/2021 were negative, the patient is status post DEVEN completed with no evidence of endocarditis however did show mobile mass attached to the dialysis catheter which has been removed 11/03/2021, the patient did have a dialysis cath placement in the right groin as of 11/06/2021, patient is status post left hip, left knee as well as left left calf I&D by orthopedics on 11/09/2021 On today's evaluation that is 11/12/2021, the patient continues to be afebrile, the patient is breathing comfortably on room air, the patient denies chest pain shortness of breath or cough , the patient denies nausea no vomiting and no abdominal pain, the patient pain to the left knee and ankle area is currently controlled Objective - Vital Signs Vital signs: Vital Signs Temp 98.6 F 11/12/21 09:00 Pulse 107 H 11/12/21 09:00 Resp 18 11/12/21 09:00 BP 146/82 11/12/21 09:00 Pulse Ox 98 11/12/21 09:00 FiO2 Intake & Output 11/11/21 11/12/21 11/12/21 18:59 06:59 18:59 Intake Total 1220 310 484 Output Total 2009 Balance -790 310 484 Intake: IV 340 10 10 Invasive Line 7 20 Invasive Line 9 20 10 10 Nafcillin 2 gm In 300 Dextrose 5% in Water 100 ml @ 100 mls/hr IVPB Q4H [facility] Rx#:[id number] Intake, IV Titration 250 300 Amount Nafcillin 2 gm In 300 Dextrose 5% in Water 100 ml @ 100 mls/hr IVPB Q4H [facility] Rx#:[id number] Octreotide 500 mcg In 250 Sodium Chloride 0.9% 250 ml @ 25 MCG/HR 12.5 mls/ hr IV .Q20H [facility] Rx#: [id number] Oral 630 474 Output: Drainage 10 Left Hip 5 Left Knee 5 Hemodialysis 1999 Other: # Voids 1 1 # Bowel Movements 1 - Exam GENERAL DESCRIPTION: Young male lying in bed in no distress RESPIRATORY SYSTEM: Unlabored breathing , decreased breath sounds at bases HEART: S1 S2 regular rate and rhythm , ABDOMEN: Soft , no tenderness EXTREMITIES: No edema feet - Labs CBC & Chem 7: 11/12/21 10:48 11/12/21 10:48 Labs: Abnormal Lab Results - Last 24 Hours (Table) 11/11/21 11/11/21 11/12/21 Range/Units 07:13 07:13 10:48 WBC (3.8-10.6) k/uL RBC (4.30-5.90) m/uL Hgb (13.0-17.5) gm/dL Hct (39.0-53.0) % MCHC (31.0-37.0) g/dL RDW (11.5-15.5) % Plt Count 692 H (150-450) k/uL Neutrophils # 12.2 H (1.3-7.7) k/uL Sodium 130 L (137-145) mmol/L Chloride 97 L (98-107) mmol/L BUN 48 H (9-20) mg/dL Creatinine 7.15 H* (0.66-1.25) mg/dL Glucose 106 H (74-99) mg/dL Calcium 8.2 L (8.4-10.2) mg/dL Total Bilirubin 1.6 H (0.2-1.3) mg/dL Alkaline Phosphatase 136 H (38-126) U/L Albumin 2.5 L (3.5-5.0) g/dL Total CD19+ B Cells 67 L (100-524) cell/ul 11/12/21 Range/Units 10:48 WBC 16.1 H (3.8-10.6) k/uL RBC 2.27 L (4.30-5.90) m/uL Hgb 6.1 L* (13.0-17.5) gm/dL Hct 20.4 L (39.0-53.0) % MCHC 29.9 L (31.0-37.0) g/dL RDW 16.7 H (11.5-15.5) % Plt Count 724 H (150-450) k/uL Neutrophils # 13.4 H (1.3-7.7) k/uL Sodium (137-145) mmol/L Chloride (98-107) mmol/L BUN (9-20) mg/dL Creatinine (0.66-1.25) mg/dL Glucose (74-99) mg/dL Calcium (8.4-10.2) mg/dL Total Bilirubin (0.2-1.3) mg/dL Alkaline Phosphatase (38-126) U/L Albumin (3.5-5.0) g/dL Total CD19+ B Cells (100-524) cell/ul Microbiology - Last 24 Hours (Table) 11/09/21 17:26 Acid Fast Bacilli Smear - Final Knee - Left Acid Fast Bacilli Culture - Preliminary 11/09/21 17:25 Acid Fast Bacilli Smear - Final Knee - Left Acid Fast Bacilli Culture - Preliminary 11/09/21 17:23 Acid Fast Bacilli Smear - Final Thigh - Left Acid Fast Bacilli Culture - Preliminary 11/08/21 Unknown Gram Stain - Preliminary Knee - Left Body Fluid Culture - Preliminary 11/09/21 17:26 Gram Stain - Preliminary Knee - Left Tissue Culture - Preliminary 11/09/21 17:24 Gram Stain - Preliminary Knee - Left Wound Culture - Preliminary 11/09/21 17:23 Gram Stain - Preliminary Thigh - Left Tissue Culture - Preliminary 11/09/21 17:27 Gram Stain - Preliminary Leg - Left Wound Culture - Preliminary 11/09/21 17:25 Gram Stain - Preliminary Knee - Left Tissue Culture - Preliminary Assessment and Plan (1) Positive blood culture Status: Acute Code(s): R78.81 - BACTEREMIA SNOMED Code(s): 660247133 Plan: 1patient presented to hospital with sepsis source is likely dialysis catheter infection in this patient who did have a staphylococcal bacteremia which has been finalized as MSSA 2the patient dialysis catheter has been removed and tip has been sent for the culture which came back positive with MSSA. 3patient is status post I&D of the left hip and ankle in the area, cultures from the knee and ankle positive for MSSA 4patient did have persistent bacteremia echocardiogram did not show any vegetation 5patient blood culture 10/26/21 and 10/27/2021 were negative and patient was cleared to get his dialysis catheter which was placed on 10/29/2021, patient subsequently did have a new fever which is slightly concerning also have a drop in hemoglobin with a question of possible hematoma, patient did undergo DEVEN with mobile vegetation attached to the dialysis catheter which was just placed 5 days ago and the patient was not bacteremic for more than 72 hour before the catheter was placed, dialysis catheter was discontinued on 11/03/2021, patient did have blood culture repeated on 11/02/2021, 11/03/2021, 11/04/2021 and has been n egative , catheter tip culture negative as well, patient did got the groin dialysis catheter as of 11/06/2021- 6-patient did have a left lower extremity Doppler suggestive of a complex nonvascular collection possible hematoma could be responsible for his recurrent fever , orthopedic has been reconsulted, MRI has been repeated as well as CT of abdominal pelvis, with evidence of multiple fluid collection and concerning for hematoma patient is status post I&D and cultures of the left hip knee and the left calf completed on 11/09/2021 with a repeat cultures currently pending, WBC scan did show some increased uptake in the left leg but no other concerning for infection or increased uptake 7patient to continue with Naficillin , however the patient continued to drop hemoglobin and concern for possible persistent bleeding at the site of his previous hematoma and will benefit from a tertiary care evaluation Time with Patient: Less than 30
--- NOTE | 2021-11-13 10:07 | P.DS ---
Providers Date of admission: 10/18/21 23:04 Expected date of discharge: 11/13/21 Attending physician: Chano Smith Consults: 10/18/21 23:04 Consult Physician Routine Consulting Provider: Vonda Neves Consult Reason/Comments: AKIonHD,HyperK Do you want consulting provider notified?: Yes 10/19/21 05:52 Consult Physician Routine Consulting Provider: Omega Hogue Consult Reason/Comments: ?OD? Do you want consulting provider notified?: Yes 10/19/21 08:30 Consult Physician Stat Consulting Provider: Osei Jacinto Consult Reason/Comments: infectious, positive blood cultures Do you want consulting provider notified?: Yes 10/21/21 11:38 Consult Physician Routine Consulting Provider: Reggie Stokes Consult Reason/Comments: left hip pain Do you want consulting provider notified?: Yes 10/21/21 14:11 Consult Physician Routine Consulting Provider: Pravin Pollock Consult Reason/Comments: back pain Do you want consulting provider notified?: Already Contacted 10/29/21 10:56 Consult Physician Routine Consulting Provider: Greg Medina Consult Reason/Comments: Permacath vs temp cath placement Do you want consulting provider notified?: Already Contacted 11/01/21 09:55 Consult Physician Routine Consulting Provider: Brennan Moore Consult Reason/Comments: tachycardia Do you want consulting provider notified?: Yes 11/05/21 13:35 Consult Physician Routine Consulting Provider: Juan Antonio Siddiqui Consult Reason/Comments: depression Do you want consulting provider notified?: Yes 11/05/21 16:41 Consult Physician Routine Consulting Provider: Froy Laws Consult Reason/Comments: Suspect hemolysis Do you want consulting provider notified?: Yes 11/06/21 10:50 Consult Physician Routine Consulting Provider: Leora Pelaez Consult Reason/Comments: Anemia/GI Bleed Do you want consulting provider notified?: Yes Primary care physician: Nick Moore Hospital Course: Chief Complaint: Not feeling well This is a 26-year-old patient, follows with Dr. Travis moore. Chronic stable medical conditions include end-stage kidney disease on hemodialysis Sunday and Sunday, essential hypertension, secondary hyperparathyroidism. Patient came in because of not feeling well. Unsteady weak diet and rundown. Unsure about fever. Blood drawn at the nephrology dialysis center was positive for gram-positive cocci. IV vancomycin was given. Patient is slightly delirious. Consultation nephrology denies D was done. Appetite fair denies any respiratory or urinary symptoms. Admitted with sepsis with positive blood culture from the dialysis center, delirium. IV vancomycin started. October 20: Tired. Decreased oral intake. Dialysis catheter to be taken out today. Patient received dialysis yesterday. Discussed with patient. Tired. Repeat blood cultures from yesterday growing staph aureus. October 21: Less delirious today. Dialysis catheter has been removed yesterday. Blood cultures from here growing staph aureus. Patient not hungry. Did not eat his breakfast. Tired. Patient complaining of pain around the left hip area. I ordered Doppler ultrasound that came back to be negative. Hip x-ray was also o rdered and came back to be unremarkable. Orthopedics consulted. 10/23/2021 Patient is seen and evaluated in room at bedside; patient complains of generalized pain more so in Lasix; no complaint of chest pain or shortness of breath Vital signs are reviewed; blood pressure 169/98, pulse 111 Lab review shows a sodium of 123 which is down from 126 yesterday, potassium 5.9, bicarbonate 18, BUN/creatinine of 142/13.1 Repeat blood cultures drawn yesterday are reported positive; plan was to reinsert permacath if blood cultures were negative; nephrology recommending to proceed with placement of Angel catheter and dialyze the patient today and tomorrow due to worsening hyponatremia with plans to remove catheter after dialysis; patient will have a permacath placement once her cultures turn negati ve with possibility of paratonia dialysis in the meantime 10/24/2021 Patient is seen in follow-up this morning currently receiving hemodialysis. Multiple medical consultations including nephrology and infectious disease following. Blood cultures and catheter tip culture showing staph aureus and awaiting for bacteremia clearance. Patient will also need replacement dialysis catheter once cleared by infectious disease. Patient is currently maintained on 1500 mL fluid restrictions and will slightly increase as patient reports he is thirsty and not getting enough intake. Patient is currently afebrile and denies any chest pain or palpitations. 10/25/2021 Patient is seen in follow-up this morning and hemoglobin was found to be 6.8 and will transfuse 1 unit of PRBC. Patient is scheduled to undergo incision and drainage with possible debridement of the left hip and left lower extremity with orthopedics today. Patient also to have dialysis catheter removed by vascular surgery. Patient continues on fluid restrictions and is currently nothing by mouth for the procedure and diuretics being held. No plans for hemodialysis today. Patient is maintained on Sunday/Sunday/Sunday schedule and will continue with nephrology following closely. Patient is also maintained on IV antibiotics with infectious disease following closely and will continue. Multiple culture showing MSSA and hopeful for cultures during surgery today. She is currently afebrile and denies chest pain or shortness of breath. Patient reports left leg pain. 10/26/2021 Patient is seen in follow-up today status post incision and drainage of the left lower extremity and left hip with orthopedics in currently maintained on IV antibiotics in the form of cefazolin with anxiety following closely. Patient being transitioned to nafcillin while awaiting for finalized cultures of the deep tissue cultures that were obtained during surgery. Patient had dialysis catheter removed and waiting prior to insertion of new catheter. 2-D echo was also ordered to assess for any vegetation. Patient continues with fevers and denies any chest pain or shortness of breath. Hemoglobin was 7.1 today after 1 unit of PRBCs yesterday. WBC trending up at 15.4 and BNP is noted with a creatinine of 8.08. Recommend close monitoring of vital signs and temperature control and continue to await for cultures. Patient reports his pain is currently manageable and denies any chest pain or shortness of breath. 10/27/2021 Patient is seen today and continues on IV abx with multiple medical consultations following and blood cultures have been positive and awaiting repeat blood cultures for clearance of bacteremia. ID following closely and patient also remains without a dialysis catheter at this time. Patient continues with fevers as well and is status post I&D and debridement with ortho post op day 2. Patient hemoglobin is 6.9 and ordered a unit of prbc. Will hold for now and repeat am labs as patient has also not had dialysis for the last 2 days. Creatinine is 8 and nephrology following closely. Patient is extremely weak and will consult PT/OT. Patient denies chest pain or shortness of breath. 10/28/2021 Patient evaluated today continues to have positive blood cultures and awaiting repeat blood cultures that were drawn yesterday to monitor for clearance of bacteremia. Most recent have been negative for 24 hours and will await for 72 hour clearance prior to dialysis catheter placement. Patient continues with low-grade temps of 99 this morning. Patient also maintained on nafcillin with infectious disease following. Asians potassium critically elevated at 6.1 and hemoglobin remained 6.9. WBC is elevated as well at 22 and sodium is found to be 125 with a creatinine of 11.48. Nephrology following closely and may likely need a dialysis catheter temporary for hemodialysis. Ortho following and surgical drains removed of the left lower extremity. PT consulted. 10/29/2021 Patient is seen today and afebrile and maintained on IV antibiotics with ID following. Vascular surgery to place right chest wall dialysis catheter as patient needs emergent dialysis as he has continued elevated potassium and c reatinine is above 11. Patient continues with weakness and will continue with PT and advance activity as tolerated. Patient received 1 unit of blood with hemoglobin 7.7. No reports of chest pain or shortness of breath. Encouraged oral intake. Patient was seen and covered by [facility] hospitalist from October 22 through October 29 10/30/2021: Patient getting hemodialysis today. Decreased appetite. On IV nafcillin. No pain. Laying in bed. Patient in the last few days however I&D of septic arthritis including left hip left knee and left ankle. All cultures growing MSSA. 10/31/2021: Two-level good breakfast. Not hungry for lunch. On IV nafcillin. And wish to be out of bed. Patient to be changed over to Ancef at dialysis upon discharge. Hemoglobin 6.9. 1 unit of PRBC ordered. 11/01/2021: On IV nafcillin. Tachycardia. Cardiology consulted. Discussed with the patient. We will try Marinol. 11/02/2021: Remains tachycardic. Spiked a fever to 101 earlier. Discussed with ID. DEVEN ordered with cardiology. Patient started on Marinol yesterday. Feels tired. Hemoglobin 6.7. 1 unit of blood ordered. Hemodialysis today. 11/03/2021: Patient underwent DEVEN E by Dr. Moore today. 1 cm x 0.5 cm of vegetation noted on the catheter tip. Discussed with him, Dr. Mari from nephrology and Dr. Sevilla from ID. It was decided to remove the catheter after dialysis today. Patient never temporary dialysis catheter placed. Discussed with the patient. 11/04/2021: Right jugular dialysis catheter was removed by Dr. Christy yesterday. Patient has a left upper extremity radiocephalic fistula from February 2021. Failure to mature. Patient somewhat disappointed because of his lengthy stay in the hospital. Discussed at length with him and his friend at the bedside. He does understand. But feels frustrated. 11/05/2021: Oral intake variable. Has been feeling depressed. Consult psychiatry. Hemoglobin 6.4. Unit of blood ordered. Likely hemolysis. No evidence of GI bleed. 11/06/2021: Not much of an appetite. tunneled femoral cath placement placement today. Plan for dialysis today and tomorrow. Seen by Dr. Pelaez from surgery to rule out a GI bleed. Hemoglobin dropped again. Another unit of blood ordered. 11/07/2021: No fever. Decreased oral intake. Hemodialysis today. Will change Marinol to Megace. Has some swelling of the left knee. We will get ultrasound to rule out any significant hematoma. November 08: Patient spiked a fever of 102.9 last night. Patient does feel low. Decreased appetite. Discussed with ID. Dr. Stokes from or to to reevaluate left knee for drainage. Could be the source of fever November 09: Left knee swelling was drained by orthopedic PA yesterday. Formal load pending. Cloudy and bloody. This morning case was discussed with Dr. Laws from hematology. Computed tomography scan abdomen pelvis is ordered. Complex masslike area anterior thigh and the left possible hematoma. An additional complex lesion noted in the region of the right iliac musculature. Relevant atrophic changes. This was later discussed with Dr. Laws. Could be from platelet dysfunction. IV octreotide was ordered. Left leg MRI showing a 12 cm x 3 cm. This was discussed with Dr. Stokes from orthopedics. Also discussed with Dr. Christy from vascular. [place] to be hematoma. Patient also done for I&D of his left knee by Dr. Stokes this afternoon Spoke to Dr. Stokes in the evening: -Infected fluid was taken out of the left knee. -Large hematoma removed from the left thigh and from the left hip. Several areas of oozing. Discussed . Patient is already on IV octreotide. Cultures have been sent off. November 10: Hemoglobin dropped again today. 1 unit of blood ordered. Patient is rather scared and tearful. Discussed. Reassured. Sandostatin drip. Hemovac in place. 4 left knee and left hip. November 11: Hemoglobin today 6.6. Unit of blood ordered. Remains on Sandostatin drip. Hemovac in place. Discussed with nephrology, hematology, surgery. Clinically does not appear to be septic. Continue current treatment plan. Discussed with patient. WBC scan done yesterday unremarkable. November 12: Discuss yesterday with the vascular Dr. Medina. This morning spoke to Dr. Neves from nephrology and the covering quick sketch artist . Patient has continued to drop his hemoglobin. In spite of getting DDAVP. 9 units of blood have been given. I discussed with the patient at length. He is agreeable to get transferred to [facility] for higher level of care and see if something else can be done. Thigh tender. Spoke to the accepting physician at [facility]. Patient was accepted. Patient also discussed this with his mother, over the phone. November 13: Patient was transferred to [facility] for higher level of care Current medications reviewed Past medical history to include: End-stage kidney disease on hemodialysis, anemia of CK D, minimal bone disease Social history: Lives with his mother. Smokes about 5 bowls of marijuana daily. No alcohol or cigarette smoking. Family history: Diabetes, COPD, A. fib, CHF Physical examination: VITAL SIGNS: 99, 103, 16, 130/68, 98% GENERAL: Laying in bed, awake EYES: Pupils equal. Conjunctiva normal. HEENT: External appearance of nose and ears normal, oral cavity grossly normal. NECK: JVD not raised; masses not palpable. HEART: First and second heart sounds are normal; no edema. LUNGS: Respiratory rate normal; clear to auscultation. ABDOMEN: Soft, nontender, liver spleen not palpable, no masses palpable. PSYCH: AO 3, mood and affect, anxious MUSCULOSKELETAL:No Clubbing/cyanosis;muscles-grossly intact. Hemovac left knee/left hip. Dressing in place. Tenderness in the left thigh. INVESTIGATIONS, reviewed in the clinical context: November 12: White count 16.1 hemoglobin 6.1 platelet 724 potassium 4.3 creatinine 7.15 November 11: WBC 14.9 hemoglobin 6.6 platelets 692 potassium 6.1 creatinine 9.2 November 10: WBC 14.8 hemoglobin 6.4 platelets 807 Lower extremity MRI [November 09]: Suspicious for hematoma Abdomen pelvis CT: [November 09]: Suspicious for right iliac hematoma November 07: WBC 11.9 hemoglobin 6.9 platelets 846 Dialysis Catheter tip culture: Negative Ultrasound left knee: Edema of the left knee. November 06: WBC 15.9 hemoglobin 6.7 platelets 733 potassium 4.9 creatinine 10.49. Haptoglobin 259 November 05: WBC 17.4 hemoglobin 6.4 potassium 4.7 creatinine 9.05 November 03: WBC 18.7, hemoglobin 7.1 platelets and 5 to potassium 4.2 creatinine 7.73 DEVEN [November 03]: 1 cm x 0.5 cm vegetation on catheter tip November 02: White count 8.2 hemoglobin 6.7 platelets 757 October 31: WBC 19 hemoglobin 6.9 potassium 4.5 creatinine 8.15 October 30: White count 19.8 hemoglobin 7.1 platelet 774 sodium 126 potassium 5.4 creatinine 9.96 October 21: Sodium 127 potassium 5.4 twice a day 2 creatinine 9.1 Urine drug screen: Positive for opiates, benzodiazepine, marijuana White count 12.4 hemoglobin 9 platelets 170 sodium 126 potassium 5.3 rate 80 creatinine 10.9 phosphorus 5.6 and magnesium 2.8 bilirubin 1.8 EKG tracing personally reviewed by me-sinus tachycardia rate of 1:30. Right bundle branch block pattern. Nonspecific ST segment changes. Assessment and plan: -Sepsis with blood cultures positive for MSSA. done at the dialysis center and from October 19.: Slow to respond IV nafcillin Dialysis catheter removed October 20. Blood culture negative on October 27. DEVEN on November 03 showing vegetation on catheter. Right internal jugular Dialysis catheter removed November 03. Tunneled Right femoral dialysis catheter placed on November 06. Dialysis catheter tip culture negative. November 09 repeat I&D of the left knee joint for infected fluid. -Hematoma different sites including left thigh, left knee, right iliac muscle. [place] to be from platelet dysfunction given uremia and infection Large hematoma removed from left hip, left thigh. Hemovac in place. -Polyarticular septic arthritis including the left hip, left knee, left ankle with I&D of all the joints. Recurrent infection of left knee joint. IV nafcillin. Left knee I&D carried out again on November [address] Stokes. -Acute delirium from sepsis: Improved Treat underlying infection -End-stage kidney disease on hemodialysis Sunday and Sunday On dialysis schedule -Anemia of chronic kidney disease, dropped hemoglobin to 6.7. Follow H&H. -Acute recurrent Anemia due to recurrent bleeding from underlying platelet dysfunction, leading to hematoma multiple places.: Uncontrolled Received 9 unit of blood -mineral bone disease/CK D Supplements -Hyperphosphatemia secondary to CK D Renvela -Hypervolemic hyponatremia: Slow to respond Encourage oral intake. Fluid to be taken off at dialysis. -Anorexia multifactorial Megace 5 mg twice a day -Sinus tachycardia likely combination of deconditioning and infection Disposition: Transferred to [facility] Plan - Discharge Summary Discharge Rx Participant: No New Discharge Prescriptions: No Action amLODIPine [Norvasc] 5 mg PO DAILY #30 tab Calcium Acetate [PhosLo] 667 mg PO DAILY PRN PRN Reason: snacks Renaplex-D 1 tab PO DAILY Torsemide [Demadex] 40 mg PO DAILY Cyclobenzaprine [Flexeril] 5 mg PO TID PRN PRN Reason: Muscle Pain Lidocaine-Prilocaine Cream [Emla Cream 2.5%/2.5%] 1 applic TOPICAL DIRECTED PRN PRN Reason: DIALYSIS carvediloL [Coreg] 3.125 mg PO BID-W/MEALS Calcium Acetate [PhosLo] 1,334 mg PO TID-W/MEALS Auryxia 210mg 840 tab PO TID-W/MEALS Sevelamer [Renvela] 1,600 mg PO TID-W/MEALS Sevelamer Carbonate 800 mg PO DAILY PRN PRN Reason: SNACKS Discharge Medication List amLODIPine [Norvasc] 5 mg PO DAILY #30 tab 09/17/20 [Rx] Auryxia 210mg 840 tab PO TID-W/MEALS 11/15/20 [History] Calcium Acetate [PhosLo] 1,334 mg PO TID-W/MEALS 11/15/20 [History] Calcium Acetate [PhosLo] 667 mg PO DAILY PRN 11/15/20 [History] Renaplex-D 1 tab PO DAILY 11/15/20 [History] carvediloL [Coreg] 3.125 mg PO BID-W/MEALS 11/15/20 [History] Torsemide [Demadex] 40 mg PO DAILY 02/24/21 [History] Cyclobenzaprine [Flexeril] 5 mg PO TID PRN 10/18/21 [History] Lidocaine-Prilocaine Cream [Emla Cream 2.5%/2.5%] 1 applic TOPICAL DIRECTED PRN 10/18/21 [History] Sevelamer Carbonate 800 mg PO DAILY PRN 10/18/21 [History] Sevelamer [Renvela] 1,600 mg PO TID-W/MEALS 10/18/21 [History] Follow up Appointment(s)/Referral(s): [facility] - [facility], [NON-STAFF] - Nick Moore MD [Primary Care Provider] - 1-2 days Osei Jacinto MD [STAFF PHYSICIAN] - 1 Week Reggie Stokes MD [Medical Doctor] - 10 Days Patient Instructions/Handouts: Octreotide (By injection) Activity/Diet/Wound Care/Special Instructions: Keep dressing clean and dry. May shower with tegaderm in place. Discharge/Stand Alone Forms: Personal Wellness Health Coach Discharge Disposition: OTHER INSTITUTION NOT DEFINED
== END 2021-11-13 00:05 | disposition other institution (70) | DRG 981 ==
LOC: EC 18:30 → 3SCARD 23:04
PROVIDERS: ADMIT Hospitalist; ATTEND Hospitalist
PROC: 5A1D70Z Performance of Urinary Filtration, Intermittent, Less than 6 Hours Per Day (ICD-10-PCS; 2021-10-18)
PROC: 02PY33Z Removal of Infusion Device from Great Vessel, Percutaneous Approach (ICD-10-PCS; 2021-10-20)
PROC: 02HV33Z Insertion of Infusion Device into Superior Vena Cava, Percutaneous Approach (ICD-10-PCS; 2021-10-23)
PROC: 06HY33Z Insertion of Infusion Device into Lower Vein, Percutaneous Approach (ICD-10-PCS; 2021-10-23)
PROC: 0S9D0ZZ Drainage of Left Knee Joint, Open Approach (ICD-10-PCS; 2021-10-25)
PROC: 0Y9L0ZZ Drainage of Left Ankle Region, Open Approach (ICD-10-PCS; 2021-10-25)
PROC: 0JDP3ZZ Extraction of Left Lower Leg Subcutaneous Tissue and Fascia, Percutaneous Approach (ICD-10-PCS; 2021-10-25)
PROC: 06PY33Z Removal of Infusion Device from Lower Vein, Percutaneous Approach (ICD-10-PCS; 2021-10-25)
PROC: 30233N1 Transfusion of Nonautologous Red Blood Cells into Peripheral Vein, Percutaneous Approach (ICD-10-PCS; 2021-10-25)
PROC: 0S9B0ZZ Drainage of Left Hip Joint, Open Approach (ICD-10-PCS; principal; 2021-10-25 10:20)
PROC: 02HV33Z Insertion of Infusion Device into Superior Vena Cava, Percutaneous Approach (ICD-10-PCS; 2021-10-29)
PROC: 0JHL3XZ Insertion of Tunneled Vascular Access Device into Right Upper Leg Subcutaneous Tissue and Fascia, Percutaneous Approach (ICD-10-PCS; 2021-11-01)
PROC: 06HM33Z Insertion of Infusion Device into Right Femoral Vein, Percutaneous Approach (ICD-10-PCS; 2021-11-01)
PROC: 02PY33Z Removal of Infusion Device from Great Vessel, Percutaneous Approach (ICD-10-PCS; 2021-11-03)
PROC: B24BZZ4 Ultrasonography of Heart with Aorta, Transesophageal (ICD-10-PCS; 2021-11-03)
PROC: 0JHL3XZ Insertion of Tunneled Vascular Access Device into Right Upper Leg Subcutaneous Tissue and Fascia, Percutaneous Approach (ICD-10-PCS; 2021-11-06)
PROC: 06HM33Z Insertion of Infusion Device into Right Femoral Vein, Percutaneous Approach (ICD-10-PCS; 2021-11-06)
PROC: 0KDP0ZZ Extraction of Left Hip Muscle, Open Approach (ICD-10-PCS; 2021-11-09)
PROC: 0KDT0ZZ Extraction of Left Lower Leg Muscle, Open Approach (ICD-10-PCS; 2021-11-09)
DX: T80.211A Bloodstream infection due to central venous catheter, initial encounter (principal); A41.01 Sepsis due to Methicillin susceptible Staphylococcus aureus; R65.20 Severe sepsis without septic shock; N18.6 End stage renal disease; M00.052 Staphylococcal arthritis, left hip; M00.072 Staphylococcal arthritis, left ankle and foot; M00.062 Staphylococcal arthritis, left knee; N17.9 Acute kidney failure, unspecified; I12.0 Hypertensive chronic kidney disease with stage 5 chronic kidney disease or end stage renal disease; F05 Delirium due to known physiological condition; E87.2 Acidosis; N25.81 Secondary hyperparathyroidism of renal origin; E87.1 Hypo-osmolality and hyponatremia; D62 Acute posthemorrhagic anemia; L02.416 Cutaneous abscess of left lower limb; D63.1 Anemia in chronic kidney disease; I08.1 Rheumatic disorders of both mitral and tricuspid valves; D69.1 Qualitative platelet defects; E83.39 Other disorders of phosphorus metabolism; F41.9 Anxiety disorder, unspecified; R00.0 Tachycardia, unspecified; E87.5 Hyperkalemia; M79.89 Other specified soft tissue disorders; S80.12XA Contusion of left lower leg, initial encounter; M25.452 Effusion, left hip; S70.02XA Contusion of left hip, initial encounter; S70.12XA Contusion of left thigh, initial encounter; M25.462 Effusion, left knee; B95.61 Methicillin susceptible Staphylococcus aureus infection as the cause of diseases classified elsewhere; I45.10 Unspecified right bundle-branch block; D46.4 Refractory anemia, unspecified; M89.8X9 Other specified disorders of bone, unspecified site; M54.50 Low back pain, unspecified; R53.81 Other malaise; M79.604 Pain in right leg; D75.838 Other thrombocytosis; M25.562 Pain in left knee; R63.0 Anorexia; Y71.1 Therapeutic (nonsurgical) and rehabilitative cardiovascular devices associated with adverse incidents; Z99.2 Dependence on renal dialysis; Z79.899 Other long term (current) drug therapy; Z91.048 Other nonmedicinal substance allergy status; Z86.16 Personal history of COVID-19; Z83.3 Family history of diabetes mellitus; Z82.49 Family history of ischemic heart disease and other diseases of the circulatory system; Z82.5 Family history of asthma and other chronic lower respiratory diseases; Z98.890 Other specified postprocedural states; Z68.20 Body mass index [BMI] 20.0-20.9, adult
CPT/HCPCS: 36410; 36415; 36555; 36556; 36558; 71045; 72100; 73502; 74177; 76937; 77001; 78306; 80048; 80053; 80076; 80143; 80202; 80306; 80320; 81001; 82150; 82272; 82306; 82607; 82728; 82746; 82784; 83010; 83540; 83550; 83605; 83615; 83690; 83735; 83883; 83921; 84100; 84132; 84165; 84443; 85025; 85027; 85045; 85379; 85384; 85610; 85652; 85730; 86140; 86334; 86355; 86357; 86359; 86360; 86850; 86900; 86901; 86920; 87040; 87070; 87075; 87077; 87116; 87186; 87205; 87206; 87502; 87635; 88304; 89050; 89060; 90935; 93005; 93306; 93312; 93320; 93325; 93970; 94760; 96365; 96375; 96376; 99285

== ENCOUNTER 2022-02-27 07:00 | Day surgery (SDC) | payer OTHER ==
[2022-02-22 16:17] VITALS: BMI 23.1
--- NOTE | 2022-02-27 07:41 | P.GSHP ---
History of Present Illness H&P Date: 02/27/22 Chief Complaint: ESRD 26 year old gentleman with history of CKD with previous left upper extremity radial-cephalic fistula creation and failure presents to the hospital for creation of a left upper extremity brachial-cephalic fistula. He had ultrasound vein mapping again after the previous failed fistula which demonstrated good size patent cephalic vein above the elbow. He denies any fevers, chills, chest pain or shortness of breath currently. - Review of Systems All systems: negative (what is mentioned in the PMH or HPI) Past Medical History Past Medical History: Dialysis, Hypertension, Renal Disease Additional Past Medical History / Comment(s): Covid 19 03/2020, past hx nose bleeds., chronic kidney disease with dialysis M-W-F., hospitalized 10/18/21 -11/13/21 and transferred to [facility]-pt had anemia with multiple blood transfusions, sepsis & hematoma left calf with multiple procedures- irrigation and debridement of left hip, knee, calf and ankle., pt states fistula insertion rescheduled due to illness- states he had the flu and denies current symptoms. History of Any Multi-Drug Resistant Organisms: None Reported Past Surgical History: No Surgical Hx Reported Additional Past Surgical History / Comment(s): hx of dialysis ports chest port x2, groin port , thigh port. tooth extraction, October 2021 hospitalized with multiple procedures including Irrigation & Debridment left knee ,ankle, left hip, left calf., DEVEN, drainage of left knee. Past Anesthesia/Blood Transfusion Reactions: Previous Problems w/ Anesthesia, Motion Sickness Additional Past Anesthesia/Blood Transfusion Reaction / Comment(s): 1st port no issue, 2nd port replacement "felt everything. HX OF MULTIPLE BLOOD TRANSFUSIONS (9) IN OCTOBER 2021-DENIES REACTION Past Psychological History: Anxiety Additional Psychological History / Comment(s): denies current depression Smoking Status: Never smoker Past Alcohol Use History: None Reported Past Drug Use History: Marijuana Additional Drug Use History / Comment(s): current marijuana use - Past Family History Mother History Unknown: Yes Family Medical History: Diabetes Mellitus Additional Family Medical History / Comment(s): heart mummur. Grandmother had COPD, A fib and CHF. Father History Unknown: Yes Additional Family Medical History / Comment(s): Grandfather had dialysis for a couple of years. Medications and Allergies Home Medications Medication Instructions Recorded Confirmed Type Auryxia 210mg 420 tab PO TID-W/MEALS 11/15/20 02/22/22 History Sevelamer [Renvela] 1,600 mg PO TID-W/MEALS 10/18/21 02/22/22 History Losartan [Cozaar] 50 mg PO DAILY 01/24/22 02/22/22 History Vit B Complx C/Folic Acid/Zinc 1 each PO DAILY 01/24/22 02/22/22 History [Renaplex Tablet] amLODIPine [Norvasc] 10 mg PO DAILY 01/24/22 02/22/22 History carvediloL [Coreg] 12.5 mg PO BID 01/24/22 02/22/22 History polyethylene glycoL 3350 [Miralax] 17 gm PO DAILY PRN 01/24/22 02/22/22 History Allergies Allergy/AdvReac Type Severity Reaction Status Date / Time chlorhexidine Allergy Itching Verified 02/22/22 15:37 Surgical - Exam - General well developed, well nourished, no distress - Eyes PERRL, normal ocular movement - ENT normal pinna - Neck no masses - Respiratory normal expansion, normal respiratory effort - Cardiovascular Rhythm: regular - Abdomen Abdomen: soft, non tender - Integumentary no rash, no growths - Neurologic normal coordination, normal sensation - Musculoskeletal normal gait - Psychiatric oriented to time, oriented to person, oriented to place, speech is normal palpable radial pulses bilaterally. Assessment and Plan Assessment: ESRD Plan: To OR for left upper extremity brachial-cephalic fistula creation
[2022-02-27] MEDS ORDERED: ONDANSETRON 4 MG/2 ML VIAL ONE ×2 (07:53→12:01)
[2022-02-27] MEDS ORDERED: LACTATED RINGERS 1,000 ML IV ONE (08:02)
[2022-02-27] MEDS ORDERED: DEXAMETHASONE SOD PHOSPHATE 4 MG/ML 1 ML VIAL IVP ONE (08:02)
[2022-02-27 08:03] LABS: Albumin 4.6 g/dL (3.5-5.0); Calcium 9.9 mg/dL (8.4-10.2); Potassium 4.9 mmol/L (3.5-5.1); Total Bilirubin 0.5 mg/dL (0.2-1.3)
[2022-02-27 08:18] LABS: Anisocytosis Slight; Basophils % (A) 0 %; Eosinophils # (A) 0.3 k/uL (0-0.7); Eosinophils % (A) 3 %; HCT 38.6 % (39.0-53.0); HGB 12.3 gm/dL (13.0-17.5); Hypochromasia Marked; Lymphocytes # (A) 1.6 k/uL (1.0-4.8); Lymphocytes % (A) 20 %; MCHC 31.8 g/dL (31.0-37.0); MCV 84.9 fL (80.0-100.0); Mean Platelet Volume 7.9; Monocytes # (A) 0.5 k/uL (0-1.0); Monocytes % (A) 6 %; Neutrophils # (A) 5.5 k/uL (1.3-7.7); Neutrophils % (A) 69 %; Platelet Count 255 k/uL (150-450); RBC 4.54 m/uL (4.30-5.90); RDW 17.7 % (11.5-15.5)
[2022-02-27] MEDS ORDERED: MIDAZOLAM 2 MG/2 ML VIAL IVP ONE (08:26)
[2022-02-27] MEDS ORDERED: fentaNYL (PF) 50 MCG/ML 2 ML AMP IVP ONE (08:26)
[2022-02-27] MEDS ORDERED: HEPARIN SODIUM,PORCINE 5,000 UNIT/ML 1 ML VIAL ONE ×2 (08:27)
[2022-02-27] MEDS ORDERED: MIDAZOLAM 2 MG/2 ML VIAL ONE ×2 (08:27)
[2022-02-27] MEDS ORDERED: ROPIVACAINE 5 MG/ML 30 ML VIAL ONE (08:27)
[2022-02-27] MEDS ORDERED: PROPOFOL 10 MG/ML 20 ML VIAL IV ONE ×2 (08:27)
[2022-02-27] MEDS ORDERED: LIDOCAINE 2% INJ 20 MG/ML (2 ML VIAL) ONE ×2 (08:27)
[2022-02-27] MEDS ORDERED: fentaNYL (PF) 50 MCG/ML 2 ML AMP ONE ×2 (08:27)
[2022-02-27] MEDS ORDERED: ceFAZolin 2 GM in SODIUM CHLORIDE 0.9% 500 ML 500 ML IRRIGATION ONE (09:13)
[2022-02-27] MEDS ORDERED: HEPARIN SODIUM,PORCINE 2,000 UNIT in SODIUM CHLORIDE 0.9% 500 ML 500 ML IRRIGATION ONE (09:13)
[2022-02-27 10:41] VITALS: TEMP 97.2
[2022-02-27 11:24] VITALS: RESP 16
[2022-02-27] MEDS ORDERED: ONDANSETRON 4 MG/2 ML VIAL IVP ONE (12:03)
--- NOTE | 2022-02-27 12:19 | P.OP ---
Date of Procedure: 02/27/22 Preoperative Diagnosis: ESRD Postoperative Diagnosis: Same Procedure(s) Performed: Left upper extremity brachial-cephalic fistula creation Anesthesia: MAC Surgeon: Albert Fraire Estimated Blood Loss (ml): 15 Pathology: none sent Condition: stable Disposition: PACU Indications for Procedure: 26 year old male with history of ESRD, presents for creation of left upper extremity fistula. He previously had a radial cephalic fistula that failed and had ultrasound of the arms that demonstrated widely patent cephalic vein above the elbow with good size for fistula. He presents today for procedure. Description of Procedure: After written and informed consent was obtained from the patient the patient was brought to the operative suite and laid in a supine position. The left arm was prepped and draped in the usual sterile fashion after appropriate anesthesia was performed per the anesthesiologist. Utilizing ultrasound the cephalic vein was visualized and marked and shown to be good size. A small transverse incision was then created with a 15 blade scalpel just proximal to the elbow and dissection was carried down to the brachial artery which was dissected free in a circumferential manner. Proximal distal control was then obtained with vessel loops. Attention was then placed back to the cephalic vein which was located and dissected free in a circumferential manner distally to the elbow. At the wrist it was ligated with silk suture. Further dissection was carried around the vein and the vein was brought over to the brachial artery. Serial dilation was then performed on the vein and good backbleeding was noted. Patient was administered 3000 units of heparin and the brachial artery was clamped at the proximal and distal aspect. Utilizing 11 blade scalpel and arteriotomy was created and extended with Pott Morrison scissors. There was good brisk backbleeding noted from the brachial artery and pulsatile blood flow visualized from the proximal aspect. The vein was then spatulated and an end-to-side anastomosis was created with a 6-0 Prolene suture. Prior to last sutures being placed the control was released from the vein revealing good backbleeding and distal control on the brachial artery was released revealing good back flow. The proximal control was then released and good pulsatile blood flow was visualized in the fistula and final sutures were secured. The area was copiously irrigated with antibiotic solution. Hemostasis was assured. The vessels were then interrogated with Doppler which demonstrated good multiphasic signal distal to the anastomosis as well as positive bruit within the vein consistent with good fistula creation. Under ultrasound there was pulsatile flow noted in the cephalic vein. The incision was then closed in a multilayer fashion. The skin was cleansed and dressings were placed. Patient tolerated the procedure well and was sent to PACU for recovery.
[2022-02-27 12:20] VITALS: BP 154/84; PULSE 97
--- NOTE | 2022-02-27 14:21 | P.ANPRN ---
Procedure Note - Anesthesia - Nerve Block Performed Left Supraclavicular Time Out Performed: Yes (:) Date of Procedure: 02/27/22 Procedure Start Time: Procedure Stop Time: Location of Patient: PreOp Indication: Acute Post-Operative Pain, Requested by Surgeon (Dr Fraire) Sedation Type: Sedate with meaningful contact maintained Preparation: Sterile Prep Position: Supine Catheter: None Needle Types: Pajunk Needle Gauge: Other (see comment) (22g) Ultrasound used to visualize needle placement: Yes Ultrasound used to observe medication spread: Yes Injectate: 0.5% Ropivacaine (see comment for volume) (15cc) Blood Aspirated: No Pain Paresthesia on Injection Noted: No Resistance on Injection: Normal Image Stored and Saved: Yes Events: Uneventful and Well Tolerated
== END 2022-02-27 12:28 | disposition home or self-care (01) ==
LOC: OR 07:00
PROVIDERS: ATTEND Surgery
DX: I12.0 Hypertensive chronic kidney disease with stage 5 chronic kidney disease or end stage renal disease (principal); N18.6 End stage renal disease; G89.18 Other acute postprocedural pain; F41.9 Anxiety disorder, unspecified; F12.90 Cannabis use, unspecified, uncomplicated; Z86.16 Personal history of COVID-19; Z99.2 Dependence on renal dialysis; Z98.890 Other specified postprocedural states; Z83.3 Family history of diabetes mellitus; Z82.5 Family history of asthma and other chronic lower respiratory diseases; Z82.49 Family history of ischemic heart disease and other diseases of the circulatory system; Z79.899 Other long term (current) drug therapy; Z88.2 Allergy status to sulfonamides
CPT/HCPCS: 64415; 76942; 80053; 85025; 36821; J2250; J1644; J1100; J0690; J2405; J3010; J2795; J2704; J2001

== ENCOUNTER 2023-07-21 12:42 | Emergency (ER) | payer OTHER ==
[2023-07-21] MEDS: ACETAMINOPHEN TAB 500 MG TAB PO STA (13:38)
[2023-07-21] MEDS: ONDANSETRON 4 MG/2 ML VIAL IVP STA (13:38)
[2023-07-21 13:39] LABS: Basophils % (A) 0 %; Eosinophils # (A) 0.1 k/uL (0-0.7); Eosinophils % (A) 1 %; HCT 32.2 % (39.0-53.0); HGB 10.8 gm/dL (13.0-17.5); Lymphocytes # (A) 0.4 k/uL (1.0-4.8); Lymphocytes % (A) 2 %; MCH 30.9 pg (25.0-35.0); MCHC 33.6 g/dL (31.0-37.0); MCV 91.9 fL (80.0-100.0); Mean Platelet Volume 8.4; Monocytes # (A) 0.5 k/uL (0-1.0); Monocytes % (A) 3 %; Neutrophils # (A) 15.8 k/uL (1.3-7.7); Neutrophils % (A) 93 %; Platelet Count 180 k/uL (150-450); RBC 3.51 m/uL (4.30-5.90); RDW 14.2 % (11.5-15.5); WBC 16.9 k/uL (3.8-10.6)
[2023-07-21 13:48] LABS: ALT 20 U/L (4-49); AST 24 U/L (17-59); Albumin 4.8 g/dL (3.5-5.0); Alkaline Phosphatase 94 U/L (38-126); Amylase 56 U/L (30-110); Anion Gap 20 mmol/L; Blood Urea Nitrogen 63 mg/dL (9-20); Calcium 9.2 mg/dL (8.4-10.2); Carbon Dioxide 23 mmol/L (22-30); Chloride 91 mmol/L (98-107); Glucose 130 mg/dL (74-99); Lipase 46 U/L (23-300); Sodium 134 mmol/L (137-145); Total Bilirubin 0.9 mg/dL (0.2-1.3); Total Protein 7.9 g/dL (6.3-8.2)
[2023-07-21 13:53] LABS: African American GFR (CKD) 4 (>60 ml/min/1.73 sqM); Non-African American GFR(CKD) 4 (>60 ml/min/1.73 sqM)
--- NOTE | 2023-07-21 13:55 | XR ---
EXAMINATION TYPE: XR chest 2V DATE OF EXAM: 07/21/2023 COMPARISON: 10/29/2021 HISTORY: Abdominal pain, vomiting and fever TECHNIQUE: Frontal and lateral views of the chest are obtained. FINDINGS: There is a single band of fine linear opacity in the left lung base likely indicating mild interstiti al scar from previous infiltrate identified on the prior study. There is no airspace consolidation. There is no pleural effusion or pneumothorax. The heart and pulmonary vasculature are normal. The osseous structures are intact. IMPRESSION: No acute cardiopulmonary process.
--- NOTE | 2023-07-21 16:04 | CT ---
EXAMINATION TYPE: CT abdomen pelvis wo con CT DLP: 621.2 mGycm, Automated exposure control for dose reduction was used. DATE OF EXAM: 07/21/2023 2:23 PM COMPARISON: None. CLINICAL INDICATION:Male, 28 years old with history of abdominal pain. llq pain; llq pain, unable to urinate TECHNIQUE: Axial CT of the abdomen and pelvis. Sagittal and coronal reformats were created on a [employer] workstation. Contrast used: mL of , (none if empty) Oral contrast used: without Oral Contrast (none if empty) FINDINGS: Exam is limited without contrast. LOWER CHEST: Mild cardiomegaly. Trace pericardial effusion. Small calcification of the right heart of uncertain location. There is poor visualization of the clark and septa of the heart, this can be see n with anemia. Linear scarring or atelectasis in the lung bases. ABDOMEN LIVER: Appears enlarged measuring 22.2 cm in greatest craniocaudal dimension. Otherwise grossly unrem arkable. GALLBLADDER AND BILE DUCTS: Unremarkable gallbladder. No biliary ductal dilatation. PANCREAS: Unremarkable. SPLEEN: Unremarkable. ADRENAL GLANDS: Mildly thickened and nodular, left more than right. No evidence of mass.. KIDNEYS AND URETERS: Moderate to severe right and moderate left renal atrophy. Low-density small nodu les of the left kidney appear to be simple cysts. Exophytic nodule from the lower pole of the right k idney appears of slightly higher attenuation, likely hyperdense/hemorrhagic cyst. No visible calculi or hydronephrosis. PELVIS BLADDER: Nondistended and not well assessed. REPRODUCTIVE: There are hazy margins of the prostate gland and portion of the seminal vesicles, with mild intrapelvic fat stranding and small amount of free pelvic fluid. ABDOMEN & PELVIS STOMACH AND BOWEL: Stomach and small bowel are nondistended, no evidence of obstruction. What appea rs to be the appendix contains some stippled calcifications and no inflammatory changes are evident. Mild stool throughout the colon without focal acute abnormality seen. PERITONEUM/RETROPERITONEUM: No free fluid or free air in the abdomen. Small amount of free pelvic f luid. VASCULATURE: Aorta and major branches are grossly unremarkable. No AAA. LYMPH NODES: There are numerous small nodes within the pelvis and along the retroperitoneum including the periaortic region, not individually enlarged but conspicuous in number; these are favored to be reactive. SOFT TISSUE/ABDOMINAL WALL: Unremarkable MUSCULOSKELETAL: No acute osseous abnormalities. Mild degenerative changes of the spine. IMPRESSION: 1. Pelvic findings suggestive of prostatitis, with small amount of free pelvic fluid present. 2. Multiple mildly prominent lymph nodes, likely reactive. 3. Hepatomegaly. 4. Mild cardiomegaly with trace pericardial effusion. Correlate clinically for possible anemia. 5. Bilateral renal atrophy, right worse than left.
--- NOTE | 2023-07-21 16:18 | ED ---
General Adult HPI - General Chief complaint: Urogenital Stated complaint: VOMITING, FEVER Time Seen by Provider: 07/21/23 13:04 Source: patient, family, RN notes reviewed, old records reviewed Mode of arrival: ambulatory Limitations: no limitations - History of Present Illness Initial comments: Is a 28-year-old male with past medical history remarkable for CKD on dialysis via left upper extremity AV fistula. He has missed 1 round of dialysis on Sunday. Currently Sunday. Has been dealing with some intermittent abdominal discomfort, an episode of peeing pus, as well as nausea and vomiting. States this started he feels 2 weeks ago when he took a "Rhino pill" from a gas station. Began having the intermittent abdominal pain since then. No history of STDs. Usually does not make any urine anymore due to CKD. No fevers, chills, sick contacts. States most of his emesis episodes are secondary to episodes of coughing. Presents for further evaluation at this time. - Related Data Home Medications Medication Instructions Recorded Confirmed Auryxia 210mg 420 tab PO TID-W/MEALS 11/15/20 02/27/22 Sevelamer [Renvela] 1,600 mg PO TID-W/MEALS 10/18/21 02/27/22 Losartan [Cozaar] 50 mg PO DAILY 01/24/22 02/27/22 Vit B Complx C/Folic Acid/Zinc 1 each PO DAILY 01/24/22 02/27/22 [Renaplex Tablet] amLODIPine [Norvasc] 10 mg PO DAILY 01/24/22 02/27/22 carvediloL [Coreg] 12.5 mg PO BID 01/24/22 02/27/22 polyethylene glycoL 3350 [Miralax] 17 gm PO DAILY PRN 01/24/22 02/27/22 Previous Rx's Medication Instructions Recorded Doxycycline Hyclate 100 mg PO BID 14 Days #28 cap 07/21/23 Allergies Allergy/AdvReac Type Severity Reaction Status Date / Time chlorhexidine Allergy Itching Verified 07/21/23 12:56 Review of Systems ROS Statement: Those systems with pertinent positive or pertinent negative responses have been documented in the HPI. Review of Systems: CONST: Denies fever EYES: Denies blurry vision ENT: Denies nasal congestion C/V: Denies Chest pain RESP: Denies shortness of breath GI: Endorses abdominal pain : Denies dysuria SKIN: Denies rash. MSK: Denies joint pain. NEURO: Denies headache ROS Other: All systems not noted in ROS Statement are negative. Past Medical History Past Medical History: Dialysis, Hypertension, Renal Disease Additional Past Medical History / Comment(s): Covid 19 03/2020, past hx nose bleeds., chronic kidney disease with dialysis M-W-F., hospitalized 10/18/21 - 11/13/21 and transferred to [facility]-pt had anemia with multiple blood transfusions, sepsis & hematoma left calf with multiple procedures- irrigation and debridement of left hip, knee, calf and ankle., pt states fistula insertion rescheduled due to illness- states he had the flu and denies current symptoms. History of Any Multi-Drug Resistant Organisms: None Reported Past Surgical History: No Surgical Hx Reported Additional Past Surgical History / Comment(s): hx of dialysis ports chest port x2, groin port , thigh port. tooth extraction, October 2021 hospitalized with multiple procedures including Irrigation & Debridment left knee ,ankle, left hip, left calf., DEVEN, drainage of left knee. Past Anesthesia/Blood Transfusion Reactions: Previous Problems w/ Anesthesia, Motion Sickness Additional Past Anesthesia/Blood Transfusion Reaction / Comment(s): 1st port no issue, 2nd port replacement "felt everything. HX OF MULTIPLE BLOOD TRANSFUSIONS (9) IN OCTOBER 2021-DENIES REACTION Past Psychological History: Anxiety Smoking Status: Never smoker Past Alcohol Use History: None Reported Past Drug Use History: Marijuana - Past Family History Mother History Unknown: Yes Family Medical History: Diabetes Mellitus Additional Family Medical History / Comment(s): heart mummur. Grandmother had COPD, A fib and CHF. Father History Unknown: Yes Additional Family Medical History / Comment(s): Grandfather had dialysis for a couple of years. General Exam - General Exam Comments Initial Comments: General: Appears in no acute distress. HEAD: Normal with no signs of head trauma. EYES: PERRLA, EOMI, conjunctiva normal, no discharge. ENT: Hearing grossly intact, normal oropharynx. RESPIRATORY: Clear breath sounds bilaterally. No wheezes, rales, or rhonchi. C/V: Regular rate and rhythm. S1 and S2 auscultated, no edema, peripheral pulses 2+ and intact throughout. Left upper extremity AV fistula has palpable thrill and audible bruit. ABD: Abd is soft, nontender, nondistended EXT: Normal range of motion, no obvious deformity SKIN: No rashes or lesions observed on exposed skin. NEURO: Alert and oriented x 4. Limitations: no limitations Course Vital Signs 07/21/23 07/21/23 12:50 16:58 Temperature 99.7 F H 98.7 F Pulse Rate 103 H 66 Respiratory 20 18 Rate Blood Pressure 177/92 176/87 O2 Sat by Pulse 100 98 Oximetry Medical Decision Making - Medical Decision Making Was pt. sent in by a medical professional or institution (, PA, DRAG SAWYER, urgent care, hospital, or snf...) When possible be specific @ -No Did you speak to anyone other than the patient for history (EMS, parent, family, police, friend...)? What history was obtained from this source @ -No Did you review nursing and triage notes (agree or disagree)? Why? @ -I reviewed and agree with nursing and triage notes Were old charts reviewed (outside hosp., previous admission, EMS record, old EKG, old radiological studies, urgent care reports/EKG's, snf records)? Report findings @ -Old charts reviewed Differential Diagnosis (chest pain, altered mental status, abdominal pain women, abdominal pain men, vaginal bleeding, weakness, fever, dyspnea, syncope, headache, dizziness, GI bleed, back pain, seizure, CVA, palpatations, mental health, musculoskeletal)? @ -Differential Abdominal Pain Men: Appendicitis, cholecystitis, diverticulosis, ischemic bowel, pancreatitis, hepatitis, UTI, gastroenteritis, AAA, incarcerated hernia, bowel obstruction, constipation, inflammatory bowel, hepatitis, peptic ulcer disease, splenic infarction, perforated viscus, testicular torsion, this is not meant to be an all-inclusive list EKG interpreted by me (3pts min.). @ -As above X-rays interpreted by me (1pt min.). @ -Chest x-ray reveals no obvious acute cardiopulmonary process. CT interpreted by me (1pt min.). @ -CT of the abdomen and pelvis reveals findings suggestive of prostatitis. U/S interpreted by me (1pt. min.). @ -None done What testing was considered but not performed or refused? (CT, X-rays, U/S, labs )? Why? @ -None What meds were considered but not given or refused? Why? @ -None Did you discuss the management of the patient with other professionals (professionals i.e. , PA, DR[employer] SAWYER, lab, RT, psych nurse, social media community manager, tetryl boiling tub operator, teacher, environmental technical officer, gearcase assembler)? Give summary @ -No Was smoking cessation discussed for >3mins.? @ -No Was critical care preformed (if so, how long)? @ -No Were there social determinants of health that impacted care today? How? (Homelessness, low income, unemployed, alcoholism, drug addiction, transportation, low edu. Level, literacy, decrease access to med. care, custodial, rehab)? @ -No Was there de-escalation of care discussed even if they declined (Discuss DNR or withdrawal of care, Hospice)? DNR status @ -No What co-morbidities impacted this encounter? (DM, HTN, Smoking, COPD, CAD, Cancer, CVA, ARF, Chemo, Hep., AIDS, mental health diagnosis, sleep apnea, morbid obesity)? @ -CKD, ESRD on hemodialysis Was patient admitted / discharged? Hospital course, mention meds given and route, prescriptions, significant lab abnormalities, going to OR and other pertinent info. @ -Based on the patient's presentation and physical exam, presents emergency d epartment complaining of abdominal pain as well as 1 day of missed dialysis. We will obtain abdominal labs, CT imaging, as well as chest x-ray. Screen EKG will also be obtained. Patient was in agreement the plan. Patient symptomatically treated with Zofran and Tylenol. Vital signs within acceptable limits. Patient's labs remarkable for mild leukocytosis of 16.9, chronic anemia within acceptable limits. Patient has an elevated BUN and creatinine in the setting of CKD. No hyperkalemia. Remainder of labs unremarkable. Viral swabs negative. Imaging remarkable for signs of prostatitis. There was a long delay in obtaining results. When this finally returned, I reevaluate the patient. He is asymptomatic at this time. Feels improved. Would like to go home. I discussed results with him. Denies any known history of STDs. Partner is at bedside and also denies any known history of STDs. I did discuss with him and will be treated with antibiotics for prostatitis. He will be given an oral antibiotic. I will also empirically given a dose of Lokelma prior to discharge. He will return if he has any concerns. Patient was in agreement with this plan. Strict return precautions discussed as well as strong recommendation to follow-up with nephrology on Sunday for his scheduled dialysis. No findings on labs to suggest need for emergent dialysis at this time. Patient given a dose of IV Rocephin as well as doxycycline prior to discharge. I will provide the patient with a prescription for doxycycline. I instructed the patient to follow up with their PCP in the next 1-3 days.. I explained that the patient should return to the emergency department if they experience any worsening symptoms. Strict return precautions were discussed with the patient. The patient expressed understanding of these instructions. I answered all questions that the patient had. The patient was discharged home in good condition with their prescriptions and follow up information. Undiagnosed new problem with uncertain prognosis? @ -No Drug Therapy requiring intensive monitoring for toxicity (Heparin, Nitro, Insulin, Cardizem)? @ -No Were any procedures done? @ -No Diagnosis/symptom? @ -Prostatitis Acute, or Chronic, or Acute on Chronic? @ -Acute Uncomplicated (without systemic symptoms) or Complicated (systemic symptoms)? @ -Complicated Side effects of treatment? @ -No Exacerbation, Progression, or Severe Exacerbation? @ -No Poses a threat to life or bodily function? How? (Chest pain, USA, OR, pneumonia, PE, COPD, DKA, ARF, appy, cholecystitis, CVA, Diverticulitis, Homicidal, Suicidal, threat to staff... and all critical care pts) @Unlikely Diagnosis/symptom? @ -Nausea and vomiting Acute, or Chronic, or Acute on Chronic? @ -Acute Uncomplicated (without systemic symptoms) or Complicated (systemic symptoms)? @ -Complicated Side effects of treatment? @ -None Exacerbation, Progression, or Severe Exacerbation] @ -No Poses a threat to life or bodily function? @ -Unlikely - Lab Data Result diagrams: 07/21/23 13:19 07/21/23 13:19 Lab Results 07/21/23 07/21/23 07/21/23 Range/Units 13:19 13:19 13:19 WBC 16.9 H (3.8-10.6) k/uL RBC 3.51 L (4.30-5.90) m/uL Hgb 10.8 L (13.0-17.5) gm/dL Hct 32.2 L (39.0-53.0) % MCV 91.9 (80.0-100.0) fL MCH 30.9 (25.0-35.0) pg MCHC 33.6 (31.0-37.0) g/dL RDW 14.2 (11.5-15.5) % Plt Count 180 (150-450) k/uL MPV 8.4 Neutrophils % 93 % Lymphocytes % 2 % Monocytes % 3 % Eosinophils % 1 % Basophils % 0 % Neutrophils # 15.8 H (1.3-7.7) k/uL Lymphocytes # 0.4 L (1.0-4.8) k/uL Monocytes # 0.5 (0-1.0) k/uL Eosinophils # 0.1 (0-0.7) k/uL Basophils # 0.0 (0-0.2) k/uL Sodium 134 L (137-145) mmol/L Potassium 5.0 (3.5-5.1) mmol/L Chloride 91 L (98-107) mmol/L Carbon Dioxide 23 (22-30) mmol/L Anion Gap 20 mmol/L BUN 63 H (9-20) mg/dL Creatinine 15.58 H* (0.66-1.25) mg/dL Est GFR (CKD-EPI)AfAm 4 (>60 ml/min/1.73 sqM) Est GFR (CKD-EPI)NonAf 4 (>60 ml/min/1.73 sqM) Glucose 130 H (74-99) mg/dL Calcium 9.2 (8.4-10.2) mg/dL Total Bilirubin 0.9 (0.2-1.3) mg/dL AST 24 (17-59) U/L ALT 20 (4-49) U/L Alkaline Phosphatase 94 (38-126) U/L Total Protein 7.9 (6.3-8.2) g/dL Albumin 4.8 (3.5-5.0) g/dL Amylase 56 (30-110) U/L Lipase 46 (23-300) U/L Influenza Type A (PCR) Not Detected (Not Detectd) Influenza Type B (PCR) Not Detected (Not Detectd) RSV (PCR) Not Detected (Not Detectd) SARS-CoV-2 (PCR) Not Detected (Not Detectd) - EKG Data -: EKG Interpreted by Me EKG Comments: 12-lead Electrocardiogram Interpretation Note EKG was reviewed and interpreted by myself. 12-lead ECG performed at 1324 is interpreted by me as revealing normal sinus rhythm with right bundle branch block at a rate of 91 beats per minute. University is normal. OK interval is 132 ms, QRS duration is 149 ms, QTc is 424 ms.. There were no ST or T wave abnormalities to suggest myocardial ischemia or injury. R wave progression across the precordium was satisfactory. By my interpretation this EKG is non- diagnostic for acute ischemia. Disposition Clinical Impression: Prostatitis, Nausea & vomiting Disposition: ADMITTED IP TO THIS HOSP Condition: Stable Instructions (If sedation given, give patient instructions): Prostatitis (ED) Prescriptions: Doxycycline Hyclate 100 mg PO BID 14 Days #28 cap Is patient prescribed a controlled substance at d/c from ED?: No Referrals: None,Stated [Primary Care Provider] - 1-2 days Time of Disposition: 16:16
[2023-07-21] MEDS: SODIUM ZIRCONIUM CYCLOSILICATE 10 GM PACKET PO ONE (16:46)
[2023-07-21] MEDS: ONDANSETRON 4 MG ODT STARTER PACK 2 TAB BTL PO STA (16:46)
[2023-07-21] MEDS: cefTRIAXone IN SWFI 1,000 MG/10 ML SYRINGE IVP STA (16:46)
[2023-07-21] MEDS: DOXYCYCLINE 100 MG CAP PO STA (16:46)
[2023-07-21 17:17] VITALS: BP 176/87; PULSE 66; RESP 18; TEMP 98.7
== END 2023-07-21 16:59 | disposition other institution (70) ==
LOC: EC 12:42
DX: N41.9 Inflammatory disease of prostate, unspecified (principal); I12.0 Hypertensive chronic kidney disease with stage 5 chronic kidney disease or end stage renal disease; N18.6 End stage renal disease; Z88.8 Allergy status to other drugs, medicaments and biological substances; Z86.16 Personal history of COVID-19; Z99.2 Dependence on renal dialysis; Z79.899 Other long term (current) drug therapy; Z11.52 Encounter for screening for COVID-19
CPT/HCPCS: 93005; 80053; 82150; 83690; 85025; 87636; 71046; 74176; 99285; 96374; 96375; J2405; J0696; S0119; 36415